=== PATIENT | female | born 1960 | race Hispanic/Latino ===

== ENCOUNTER 2018-01-30 17:14 | Inpatient (IN) | payer MEDICAID ==
--- NOTE | 2018-01-30 18:19 | RAD REPORT ---
EXAM DESCRIPTION: CT - Head Brain Wo Cont - 01/30/2018 6:08 pm CLINICAL HISTORY: CVA COMPARISON: 09/07/2016, 05/19/2014 TECHNIQUE: All CT scans are performed using dose optimization technique as appropriate and may inclu de automated exposure control or mA/KV adjustment according to patient size. FINDINGS: No intracranial hemorrhage, hydrocephalus or extra-axial fluid collection.Moderate general ized brain atrophy is present with moderate periventricular and deep white matter chronic microvascul ar ischemic changes.No areas of brain edema or evidence of midline shift. The paranasal sinuses and mastoids are clear. The calvarium is intact. Vertebral arteries are calcifi ed. IMPRESSION: No acute intracranial abnormality. If there is continued clinical concern for CVA, MR i maging of the brain would be recommended.
--- NOTE | 2018-01-30 18:29 | RAD REPORT ---
EXAM DESCRIPTION: RAD - Chest Single View - 01/30/2018 6:22 pm CLINICAL HISTORY: Shortness of breath. COMPARISON: 09/05/2016 FINDINGS: Portable technique limits examination quality. Ill-defined pulmonary opacity in the right upper lobe is noted, suspicious for possible pneumonia. Th e lungs are otherwise clear. The heart is normal in size. No displaced fractures.
--- NOTE | 2018-01-30 19:06 | RAD REPORT ---
EXAM DESCRIPTION: MRI - Brain Wo Cont - 01/30/2018 6:47 pm CLINICAL HISTORY: TIA, CVA COMPARISON: None. TECHNIQUE: Multi-sequence, multiplanar MR imaging of the brain was performed without contrast. FINDINGS: No intracranial hemorrhage, hydrocephalus or extra-axial fluid collections.Advanced conflu ent T2/FLAIR hyperintensity in the periventricular and deep white matter is present compatible with c hronic microvascular ischemic changes. No edema or shift of midline structures. No findings to suspec t brain mass. DWI is negative for acute CVA. Midline structures are normally formed. Mastoid air cells and paranasal sinuses are clear. IMPRESSION: Negative for acute CVA or other acute intracranial process.
--- NOTE | 2018-01-30 19:25 | ER ---
Nurse's Notes [facility] Name: Juana Navarro Age: 57 yrs Sex: Female : 1960 Arrival Date: 01/30/2018 Time: 17:26 Bed 28 Private MD: Diagnosis: Pneumonia due to other specified bacteria;Weakness;Type 2 diabetes mellitus Presentation: 01/30 17:27 Presenting complaint: EMS states: they were called by family due to patient leaning kr2 more to her right side since 8am this morning. She has a history of 2 strokes. The facial droop and other weakness is normal for her and only change is right sided leaning. Transition of care: patient was not received from another setting of care. Onset of symptoms was January 30, 2018 at 08:00. Risk Assessment: Do you want to hurt yourself or someone else? Patient reports no desire to harm self or others. Initial Sepsis Screen: Does the patient meet any 2 criteria? No. Patient's initial sepsis screen is negative. Does the patient have a suspected source of infection? No. Patient's initial sepsis screen is negative. Care prior to arrival: None. 17:27 Method Of Arrival: EMS: [facility] kr2 17:27 Acuity: DAVID 3 kr2 Triage Assessment: 17:30 General: Appears in no apparent distress. comfortable, well groomed, well developed, kr2 well nourished, Behavior is calm, cooperative, appropriate for age. Pain: Denies pain. Historical: - PMHx: 17:34 CVA; Diabetes - NIDDM; Hypertension; kr2 - PSHx: 17:34 ovaries removed; kr2 - Immunization history:: Adult Immunizations unknown. - Social history:: Smoking status: unknown. - Ebola Screening: : Patient negative for fever greater than or equal to 101.5 degrees Fahrenheit, and additional compatible Ebola Virus Disease symptoms Patient denies exposure to infectious person Patient denies travel to an Ebola-affected area in the 21 days before illness onset No symptoms or risks identified at this time. - Family history:: not pertinent. Screenin:30 Abuse screen: Denies threats or abuse. Denies injuries from another. Nutritional kr2 screening: No deficits noted. Tuberculosis screening: No symptoms or risk factors identified. Fall Risk Gait- Normal/Bed Rest/Wheelchair (0 pts). Assessment: 17:30 General: Appears in no apparent distress. comfortable, well groomed, well developed, kr2 well nourished, Behavior is calm, cooperative. Pain: Denies pain. Neuro: Level of Consciousness is awake, alert, obeys commands, Oriented to person, Patient cannot speak clearly due to effects of previous stroke . Neuro: Armature Repairer are weak on left Facial droop, weakness and aphasia reported by family to be unchanged and from previous stroke. Moves all extremities. Speech with expressive aphasia noted, Facial droop on left, Pupils are PERRLA. Cardiovascular: Capillary refill < 3 seconds in bilateral fingers Patient's skin is warm and dry. Respiratory: Airway is patent Respiratory effort is even, unlabored, Respiratory pattern is regular, symmetrical, Breath sounds are clear bilaterally. Respiratory: cough noted. GI: Abdomen is flat, non-distended. GI: Parent/caregiver reports the patient having diarrhea. EENT: Nares are clear bilaterally Oral mucosa is dry. Poor dentition noted. Derm: Skin is intact, is healthy with good turgor, Skin is pink, warm \T\ dry. Musculoskeletal: Circulation, motion, and sensation intact. 18:05 Reassessment: Patient taken to CT and MRI via stretcher by assistive technology specialist. kr2 19:30 Reassessment: Patient appears in no apparent distress at this time. Patient and/or kr2 family updated on plan of care and expected duration. Pain level reassessed. Patient back from radiology at this time. Unable to draw labs from existing IV, lab called and environmental engineering manager at bedside to draw ordered labs. 20:43 Reassessment: Patient appears in no apparent distress at this time. Patient and/or kr2 family updated on plan of care and expected duration. Pain level reassessed. Family at bedside. State they do not have a medication list with them at this time but they can get one and bring it to the hospital. Vital Signs: 17:32 BP 149 / 89; Pulse 97; Resp 21; Temp 100.2; Pulse Ox 97% on 2 lpm NC; kr2 19:30 BP 144 / 80; Pulse 90; Resp 20; Pulse Ox 100% on 2 lpm NC; kr2 20:39 BP 150 / 84; Pulse 85; Resp 18; Pulse Ox 97% on 2 lpm NC; kr2 20:46 Temp 100; kr2 21:22 BP 153 / 68; Pulse 76; Resp 22; Temp 98.8; Pulse Ox 98% on 2 lpm NC; kr2 ED Course: 17:26 Patient arrived in ED. kr2 17:30 Triage completed. kr2 17:31 Arm band placed on. kr2 17:31 Patient has correct armband on for positive identification. Bed in low position. Call kr2 light in reach. Side rails up X2. desk monitor on. Pulse ox on. NIBP on. Door closed. Warm blanket given. Head of bed elevated. 17:44 Mykel Romero MD is Attending Physician. austyn 17:[address] via stretcher. vm2 18:00 Inserted saline lock: 22 gauge in left forearm, using aseptic technique. kr2 18:02 Sophie Harvey RN is Primary Nurse. kr2 18:08 CT Head Brain wo Cont In Process Unspecified. EDMS 18:15 CT completed. Patient tolerated procedure well. Patient moved back from CT. eh 18:20 X-ray completed. Portable x-ray completed in exam room. Patient tolerated procedure mh1 well. 18:23 XRAY Chest (1 view) In Process Unspecified. EDMS 18:23 Patient moved to MRI via stretcher. ka 18:33 MRI - Brain Wo Cont In Process Unspecified. EDMS 18:58 Patient moved back from MRI. ka 19:22 Sanya Torres MD is Hospitalizing Provider. austyn 19:40 Shah cath inserted, using sterile technique, 16 Fr., by ok, balloon inflated, to kr2 gravity drainage, urine specimen collected. returned sediment noted. Patient tolerated well. 19:48 Inserted saline lock: 22 gauge in right antecubital area, using aseptic technique. kr2 Blood collected. 21:32 No provider procedures requiring assistance completed. Patient admitted, IV remains in kr2 place. 21:35 Verbal reassurance given. Repositioned patient. Cleaned of incontinence. kr2 Administered Medications: 19:57 Drug: Rocephin - (cefTRIAXone) 1 grams Route: IVPB; Infused Over: 30 mins; Site: left kr2 forearm; 21:21 Follow up: Response: No adverse reaction; IV Status: Completed infusion kr2 19:58 Drug: NS 0.9% 1000 ml Route: IV; Rate: 1 bolus; Site: left antecubital; kr2 21:22 Follow up: Response: No adverse reaction; IV Status: Completed infusion kr2 19:58 CANCELLED (route changed): Tylenol 650 mg PO once kr2 19:58 Drug: Rocephin - (cefTRIAXone) 1 grams Route: IVPB; Infused Over: 30 mins; Site: left kr2 forearm; 21:21 Follow up: Response: No adverse reaction; IV Status: Completed infusion kr2 19:59 Drug: Tylenol Suppository 650 mg Route: WA; kr2 21:21 Follow up: Response: No adverse reaction kr2 21:25 Drug: Zithromax 500 mg Route: IVPB; Infused Over: 1 hrs; Site: left forearm; kr2 21:34 Follow up: Response: No adverse reaction; IV Status: Infusion continued upon admission kr2 Outcome: 19:24 Decision to Hospitalize by Provider. austyn 21:34 Admitted to Med/surg accompanied by sachi, via stretcher, room 412, with chart, Report kr2 called to Renae 21:34 Condition: stable 21:34 Instructed on the need for admit. 21:37 Patient left the ED. kr2 Signatures: Dispatcher [employer] EDMS Mykel Romero MD MD cha Hagler, Ervin eh Harvey, Martha 1 Darya العراقي Victoria 2 Sophie Harvey RN RN kr2 Corrections: (The following items were deleted from the chart) 18:05 17:31 Ebola Screening: Patient negative for fever greater than or equal to 101.5 kr2 degrees Fahrenheit, and additional compatible Ebola Virus Disease symptoms Patient denies exposure to infectious person Patient denies travel to an Ebola-affected area in the 21 days before illness onset No symptoms or risks identified at this time kr2 18:06 17:27 Initial Sepsis Screen: Does the patient meet any 2 criteria? No. Patient's kr2 initial sepsis screen is negative. Does the patient have a suspected source of infection? No. Patient's initial sepsis screen is negative. kr2
[2018-01-30] MEDS ORDERED: CEFTRIAXONE/SWI 1gm 2 GM/20 ML SYR ONE (19:26)
[2018-01-30] MEDS ORDERED: ACETAMINOPHEN 650MG/RECT SUPP PR ONE (19:26)
--- NOTE | 2018-01-30 19:26 | EDPHYS ---
Physician Documentation [facility] Name: Juana Navarro Age: 57 yrs Sex: Female : 1960 Arrival Date: 01/30/2018 Time: 17:26 Bed 28 Private MD: ED Physician Mykel Romero HPI: 01/30 18:22 This 57 yrs old Female presents to ER via EMS with complaints of increased austyn weakness, leaning to right side. 18:22 weakness all day, leaning to the right. Onset: The symptoms/episode began/occurred 1 austyn day(s) ago. Severity of symptoms: At their worst the symptoms were mild in the emergency department the symptoms are unchanged. The patient has experienced similar episodes in the past, several times. Historical: - PMHx: 17:34 CVA; Diabetes - NIDDM; Hypertension; kr2 - PSHx: 17:34 ovaries removed; kr2 - Immunization history:: Adult Immunizations unknown. - Social history:: Smoking status: unknown. - Ebola Screening: : Patient negative for fever greater than or equal to 101.5 degrees Fahrenheit, and additional compatible Ebola Virus Disease symptoms Patient denies exposure to infectious person Patient denies travel to an Ebola-affected area in the 21 days before illness onset No symptoms or risks identified at this time. - Family history:: not pertinent. ROS: 18:22 Constitutional: Negative for fever, chills, and weight loss, Eyes: Negative for injury, austyn pain, redness, and discharge, ENT: Negative for injury, pain, and discharge, Neck: Negative for injury, pain, and swelling, Cardiovascular: Negative for chest pain, palpitations, and edema, Respiratory: Negative for shortness of breath, cough, wheezing, and pleuritic chest pain, Abdomen/GI: Negative for abdominal pain, nausea, vomiting, diarrhea, and constipation, Back: Negative for injury and pain, : Negative for injury, bleeding, discharge, and swelling, MS/Extremity: Negative for injury and deformity, Skin: Negative for injury, rash, and discoloration, Psych: Negative for depression, anxiety, suicide ideation, homicidal ideation, and hallucinations, Allergy/Immunology: Negative for hives, rash, and allergies, Endocrine: Negative for neck swelling, polydipsia, polyuria, polyphagia, and marked weight changes, Hematologic/Lymphatic: Negative for swollen nodes, abnormal bleeding, and unusual bruising. 18:22 Neuro: Positive for weakness. Exam: 18:22 Head/Face: Normocephalic, atraumatic. Eyes: Pupils equal round and reactive to light, austyn extra-ocular motions intact. Lids and lashes normal. Conjunctiva and sclera are non-icteric and not injected. Cornea within normal limits. Periorbital areas with no swelling, redness, or edema. ENT: Nares patent. No nasal discharge, no septal abnormalities noted. Tympanic membranes are normal and external auditory canals are clear. Oropharynx with no redness, swelling, or masses, exudates, or evidence of obstruction, uvula midline. Mucous membranes moist. Neck: Trachea midline, no thyromegaly or masses palpated, and no cervical lymphadenopathy. Supple, full range of motion without nuchal rigidity, or vertebral point tenderness. No Meningismus. Chest/axilla: Normal chest wall appearance and motion. Nontender with no deformity. No lesions are appreciated. Cardiovascular: Regular rate and rhythm with a normal S1 and S2. No gallops, murmurs, or rubs. Normal PMI, no JVD. No pulse deficits. Respiratory: Lungs have equal breath sounds bilaterally, clear to auscultation and percussion. No rales, rhonchi or wheezes noted. No increased work of breathing, no retractions or nasal flaring. Abdomen/GI: Soft, non-tender, with normal bowel sounds. No distension or tympany. No guarding or rebound. No evidence of tenderness throughout. Back: No spinal tenderness. No costovertebral tenderness. Full range of motion. Female : Normal external genitalia. Skin: Warm, dry with normal turgor. Normal color with no rashes, no lesions, and no evidence of cellulitis. MS/ Extremity: Pulses equal, no cyanosis. Neurovascular intact. Full, normal range of motion. Psych: Awake, alert, with orientation to person, place and time. Behavior, mood, and affect are within normal limits. 18:22 Constitutional: The patient appears febrile. 18:22 Neuro: Orientation: is normal, appropriate for stated age, no acute changes, Mentation: is normal, appropriate for stated age, no acute changes, Memory: no acute changes, Cranial nerves: no acute changes, Cerebellar function: no acute changes, Motor: moves all fours, Gait: not tested. seizure activity, is not displayed by the patient. Vital Signs: 17:32 BP 149 / 89; Pulse 97; Resp 21; Temp 100.2; Pulse Ox 97% on 2 lpm NC; kr2 19:30 BP 144 / 80; Pulse 90; Resp 20; Pulse Ox 100% on 2 lpm NC; kr2 20:39 BP 150 / 84; Pulse 85; Resp 18; Pulse Ox 97% on 2 lpm NC; kr2 20:46 Temp 100; kr2 21:22 BP 153 / 68; Pulse 76; Resp 22; Temp 98.8; Pulse Ox 98% on 2 lpm NC; kr2 MDM: 17:44 Patient medically screened. [facility] 18:25 Data reviewed: vital signs, nurses notes, lab test result(s), EKG, radiologic studies, [facility] CT scan, MRI. 01/30 17:52 Order name: Basic Metabolic Panel; Complete Time: 21:31 [facility] 01/30 21:31 Interpretation: Normal except: NA 133; K 3.1; CL 99; GLUC 210; CA 8.4; BUN 27; CRE cp 1.29; GFR 43. 01/30 17:52 Order name: BNP; Complete Time: 21:31 [facility] 01/30 17:52 Order name: CBC with Diff; Complete Time: 21:31 [facility] 01/30 21:32 Interpretation: Normal except: WBC 14.3; SAUMYA% 79.8; LYM% 10.7; NEUT A 11.4. cp 01/30 17:52 Order name: Ckmb; Complete Time: 21:31 [facility] 01/30 17:52 Order name: CPK; Complete Time: 21:31 [facility] 01/30 17:52 Order name: LFT's; Complete Time: 21:31 [facility] 01/30 21:33 Interpretation: Normal except: BILID 0.3; ALB 3.0; GLOB 4.5; A/G 0.7. cp 01/30 17:52 Order name: Magnesium; Complete Time: 21:31 [facility] 01/30 21:34 Interpretation: Abnormal: MG 1.7. cp 01/30 17:52 Order name: PT-INR; Complete Time: 21:31 [facility] 01/30 17:52 Order name: Ptt, Activated; Complete Time: 21:31 [facility] 01/30 17:52 Order name: Troponin (emerg Dept Use Only); Complete Time: 21:31 [facility] 01/30 17:52 Order name: Lipase; Complete Time: 21:31 [facility] 01/30 17:52 Order name: CRP; Complete Time: 21:31 [facility] 01/30 17:52 Order name: Blood Culture Adult (2) [facility] 01/30 17:52 Order name: Urine Culture [facility] 01/30 17:52 Order name: XRAY Chest (1 view); Complete Time: 19:05 [facility] 01/30 17:52 Order name: EKG; Complete Time: 17:53 [facility] 01/30 17:52 Order name: Cardiac monitoring; Complete Time: 18:02 [facility] 01/30 17:52 Order name: EKG - Nurse/Tech; Complete Time: 21:22 [facility] 01/30 17:52 Order name: Lactate; Complete Time: 21:31 [facility] 01/30 17:52 Order name: Procalcitonin; Complete Time: 21:31 [facility] 01/30 17:52 Order name: CT Head Brain wo Cont; Complete Time: 19:05 [facility] 01/30 18:16 Order name: MRI - Brain Wo Cont; Complete Time: 19:21 01/30 19:58 Order name: Urine Dipstick--Ancillary (enter results); Complete Time: 21:31 rg2 01/30 20:02 Order name: Thorax W/ Con; Complete Time: 21:31 EDMS 01/30 17:52 Order name: IV Saline Lock; Complete Time: 18:03 [facility] 01/30 17:52 Order name: Labs collected and sent; Complete Time: 18:03 [facility] 01/30 17:52 Order name: O2 Per Protocol; Complete Time: 18:03 [facility] 01/30 17:52 Order name: O2 Sat Monitoring; Complete Time: 18:03 [facility] 01/30 17:52 Order name: Urine Dipstick-Ancillary (obtain specimen); Complete Time: 21:22 [facility] Administered Medications: 19:57 Drug: Rocephin - (cefTRIAXone) 1 grams Route: IVPB; Infused Over: 30 mins; Site: left kr2 forearm; 21:21 Follow up: Response: No adverse reaction; IV Status: Completed infusion kr2 19:58 Drug: NS 0.9% 1000 ml Route: IV; Rate: 1 bolus; Site: left antecubital; kr2 21:22 Follow up: Response: No adverse reaction; IV Status: Completed infusion kr2 19:58 CANCELLED (route changed): Tylenol 650 mg PO once kr2 19:58 Drug: Rocephin - (cefTRIAXone) 1 grams Route: IVPB; Infused Over: 30 mins; Site: left kr2 forearm; 21:21 Follow up: Response: No adverse reaction; IV Status: Completed infusion kr2 19:59 Drug: Tylenol Suppository 650 mg Route: SD; kr2 21:21 Follow up: Response: No adverse reaction kr2 21:25 Drug: Zithromax 500 mg Route: IVPB; Infused Over: 1 hrs; Site: left forearm; kr2 21:34 Follow up: Response: No adverse reaction; IV Status: Infusion continued upon admission kr2 Disposition: 01/30/18 19:24 Hospitalization ordered by Sanya Torres for Inpatient Admission. Preliminary diagnosis are Pneumonia due to other specified bacteria, Weakness, Type 2 diabetes mellitus. - Bed requested for Telemetry/MedSurg (Inpatient). - Status is Inpatient Admission. kr2 - Condition is Fair. - Problem is new. - Symptoms have improved. UTI on Admission? Yes Signatures: Dispatcher [employer] EDMS Misa Post RN RN mw Anderson, Corey, MD MD cha Page, Corey, PA PA cp Reaves, Karey, RN RN kr2 Corrections: (The following items were deleted from the chart) 18:05 17:31 Ebola Screening: Patient negative for fever greater than or equal to 101.5 kr2 degrees Fahrenheit, and additional compatible Ebola Virus Disease symptoms Patient denies exposure to infectious person Patient denies travel to an Ebola-affected area in the 21 days before illness onset No symptoms or risks identified at this time kr 19:27 19:24 Hospitalization Ordered by Sanya Torres MD for Inpatient Admission. Preliminary diagnosis is Pneumonia due to other specified bacteria; Weakness; Type 2 diabetes mellitus. Bed requested for Telemetry/MedSurg (Inpatient). Status is Inpatient Admission. Condition is Fair. Problem is new. Symptoms have improved. UTI on Admission? Yes. austyn 19:31 19:27 01/30/2018 19:24 Hospitalization Ordered by Sanya Torres MD for Inpatient Admission. Preliminary diagnosis is Pneumonia due to other specified bacteria; Weakness; Type 2 diabetes mellitus. Bed requested for Telemetry/MedSurg (Inpatient). Status is Inpatient Admission. Condition is Fair. Problem is new. Symptoms have improved. UTI on Admission? Yes. mw 19:58 17:52 Tylenol 650 mg PO once ordered. austyn kr2 21:32 21:32 Normal except: WBC 14.3. cp cp 21:37 19:31 01/30/2018 19:24 Hospitalization Ordered by Sanya Torres MD for Inpatient kr2 Admission. Preliminary diagnosis is Pneumonia due to other specified bacteria; Weakness; Type 2 diabetes mellitus. Bed requested for Telemetry/MedSurg (Inpatient). Status is Inpatient Admission. Condition is Fair. Problem is new. Symptoms have improved. UTI on Admission? Yes. mw
[2018-01-30] MEDS ORDERED: NA CHLORIDE 0.9% 1,000 ML ONE (19:27)
[2018-01-30 19:43] LABS: Absolute Lymphocytes (CBC) 1.5 K/uL (0.7-4.9); Absolute Monocytes 1.2 K/uL (0.1-1.3); Absolute Neutrophil 11.4 K/uL (1.8-8.0); Basophils % 0.6 % (0-1.3); Eosinophils % 0.4 % (0-4.4); Hematocrit 39.7 % (36.0-45.0); Lymphocytes % 10.7 % (15.3-44.8); MCV 83.8 fL (80-100); MPV 8.3 fL (7.6-11.3); Monocytes % 8.5 % (3.3-12.3); RBC Red Blood Cell Count 4.73 M/uL (3.86-4.86)
[2018-01-30 19:51] LABS: Protime INR 1.17
[2018-01-30] MEDS ORDERED: ALBUTEROL 2.5 MG/3 ML NEB SOL NEB SCH (20:00)
[2018-01-30] MEDS: IPRATROPIUM BROM 0.5MG/2.5ML NEB SCH (20:00)
[2018-01-30 20:06] LABS: Potassium 3.1 mEq/L (3.6-5.0)
[2018-01-30 20:15] LABS: Bilirubin Direct 0.3 mg/dL (0-0.2); Bilirubin Total 0.6 mg/dL (0.3-1.2); CKMB Creatine Kinase MB 1.2 ng/ml (0.3-4.0); Magnesium 1.7 mg/dL (1.8-2.5); Protein, Total 7.5 g/dL (6.0-8.3)
[2018-01-30 20:24] LABS: Urine Blood 1+ (NEG); Urine Glucose NEGATIVE (NEG); Urine Protein 2+ (NEG); Urine pH 5.5 (5.0-7.0)
[2018-01-30] MEDS ORDERED: CEFTRIAXONE 1 GM/NS 50 ML 1 GM/50 ML BAG IV SCH (21:00)
--- NOTE | 2018-01-30 21:12 | RAD REPORT ---
EXAM DESCRIPTION: CT - Thorax W/ Con CLINICAL HISTORY: Chest pain COMPARISON: 09/05/2016 FINDINGS: Airspace opacity is present in the posterior right upper lobe with areas of internal cavit ation noted, likely representing pneumonia. A small right pleural effusion is noted. No pericardial f luid or left pleural effusion. No pneumothorax. Prominent adenopathy is present in the mediastinum, including the pretracheal region measuring up to 13 mm in short axis. Small right hilar lymph node is also seen, largest measuring 12 mm. No concerning bony finding. Cholelithiasis. All CT scans are performed using dose optimization technique as appropriate and may include automated exposure control or mA/KV adjustment according to patient size. IMPRESSION: Moderate-sized cavitary pneumonia suspected right upper lobe posteriorly with small righ t pleural effusion.Advise follow-up imaging until clear to document resolution.
[2018-01-30] MEDS: NA CHLORIDE 0.9% 1,000 ML IV SCH (21:55)
[2018-01-30 23:36] VITALS: BMI 22.4
[2018-01-31] MEDS ORDERED: POTASSIUM 25 MEQ EFFERV TAB PO ONE ×2 (01:48→10:21)
[2018-01-31] MEDS: IPRATROPIUM BROM 0.5MG/2.5ML NEB SCH ×3 (02:13→13:02)
[2018-01-31] MEDS ORDERED: TUBERCULIN PPD 5 TU/0.1 ML ID SCH (07:00)
[2018-01-31] MEDS ORDERED: PNEUMOCOCCAL VACCINE 0.5 ML IMVAC ONE (08:00)
[2018-01-31] MEDS ORDERED: CEFTRIAXONE/SWI 1gm 1 GM/10 ML SYR IV SCH (09:00)
[2018-01-31] MEDS ORDERED: AZITHROMYCIN IV 500 MG in NA CHLORIDE 0.9% 250 ML IVPB SCH (09:00)
[2018-01-31] MEDS: ENOXAPARIN 40 MG/0.4 ML SQ SCH (09:36)
[2018-01-31] MEDS: NA CHLORIDE 0.9% 1,000 ML IV SCH (09:36)
--- NOTE | 2018-01-31 10:19 | EKG ---
Test Date: 2018-01-30 Test Time: 20:45:12 Tongue And Quarter Stitcher: DAQUAN MEASUREMENT RESULTS: Intervals: Rate: 85 NM: 152 QRSD: 96 QT: 384 QTc: 456 Lucile: P: 73 NM: 152 QRS: 1 T: 79 INTERPRETIVE STATEMENTS: Normal sinus rhythm Normal ECG Compared to ECG 09/05/2016 12:46:41 T-wave abnormality no longer present Prolonged QT interval no longer present Electronically Signed On 01-31-18 10:18:41 CDT by Waqar Stark
--- NOTE | 2018-01-31 10:57 | P.CNS ---
Date of Consult: 01/31/18 Reason for Consult: Pneumoniae History of Present Illness: Patient is 57 years of age nonverbal history of prior strokes called her family members apparently she was leaning more 2 words a right unable to obtain any information. Patient was found to have a pneumonia she does move her extremities and he is obeying commands but not able to communicate. CT scan showed unimpressive pneumonia on the right side P Allergies No Known Allergies Allergy (Verified 09/05/16 23:23) Home Medications: Lisinopril 20 mg PO DAILY 09/06/16 Metformin HCl 1,000 mg PO BID 09/06/16 Atorvastatin Calcium [Lipitor] 20 mg PO BEDTIME #30 tab 09/09/16 Metoprolol Tartrate [Lopressor*] 50 mg PO BID #60 tab 09/09/16 - Past Medical/Surgical History Diabetic: Yes -: CVA -: NIDDM -: HTN -: ovaries removed - Family History Mother Medical History: Stroke Father Medical History: Heart disease - Social History Smoking Status: Unknown if ever smoked Alcohol use: No CD- Drugs: No Caffeine use: No Place of Residence: Home Review of Systems is unable to be obtained Physical Examination Temp Pulse Resp BP Pulse Ox 98.1 F 82 18 149/82 H 98 01/31/18 07:43 01/31/18 07:43 01/31/18 07:43 01/31/18 07:43 01/31/18 07:43 General: Alert, Cooperative Respiratory: Crackles/rales (Crackles on the right side) Cardiovascular: No edema, Regular rate/rhythm Gastrointestinal: Normal bowel sounds, Soft and benign Musculoskeletal: No clubbing, No swelling Integumentary: No rashes, No breakdown Neurological: Other (Patient is able to move her extremities left side is weaker than the right) Laboratory Data (last 24 hrs) 01/30/18 19:32: PT 13.8 H, INR 1.17, APTT 26.9 01/30/18 19:32: WBC 14.3 H, Hgb 12.8, Hct 39.7, Plt Count 373 01/30/18 19:32: B-Natriuretic Peptide 32 01/30/18 19:32: Sodium 133 L, Potassium 3.1 L, BUN 27 H, Creatinine 1.29 H, Glucose 210 H, Magnesium 1.7 L, Total Bilirubin 0.6, AST 34, ALT 27, Alkaline Phosphatase 119, Lipase 21 L - Problems (1) Pneumonia Current Visit: Yes Status: Acute Plan: Patient is 57 years of age admitted with a right upper lobe pneumonia nonverbal history of strokes MRI is negative white count elevated have some electrolyte abnormality mild renal insufficiency patient is at risk for resistant 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
[2018-01-31] MEDS: Levofloxacin500mg IV 500 MG/100 ML BAG IV SCH (11:38)
--- NOTE | 2018-01-31 12:19 | P.HP ---
Certification for Inpatient Patient admitted to: Inpatient With expected LOS: >2 Midnights Patient will require the following post-hospital care: None Practitioner: I am a practitioner with admitting privileges, knowledge of patient current condition, hospital course, and medical plan of care. Services: Services provided to patient in accordance with Admission requirements found in Title 42 Section 412.3 of the Code of Federal Regulations Patient History Date of Service: 01/30/18 Reason for admission: Patient with right upper lobe cavitary pneumonia History of Present Illness: Patient is a 57-year-old female who has a history CVA. She has residual expressive aphasia. 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 She came into the hospital with generalized weakness and she was confused. Patient's significant other brought her into the emergency room. Patient's initial chest x-ray showed a right upper lobe pneumonia. Patient had a CT scan to better define the pneumonia and this revealed a cavitary lesion. Patient's significant other denies any hemoptysis or weight loss. Patient does not have any night sweats. At this time will move her into isolation and await for her cultures and testing for acid fast bacilli. We will also consult Pulmonary. Allergies No Known Allergies Allergy (Verified 09/05/16 23:23) Home Medications: Lisinopril 20 mg PO DAILY 09/06/16 Metformin HCl 1,000 mg PO BID 09/06/16 Atorvastatin Calcium [Lipitor] 20 mg PO BEDTIME #30 tab 09/09/16 Metoprolol Tartrate [Lopressor*] 50 mg PO BID #60 tab 09/09/16 - Past Medical/Surgical History Has patient received pneumonia vaccine in the past: No Diabetic: Yes -: CVA -: NIDDM -: HTN -: Oopherectomy - Family History Mother Medical History: Stroke Father Medical History: Heart disease - Social History Smoking Status: Never smoker Alcohol use: No CD- Drugs: No Caffeine use: No Place of Residence: Home Review of Systems 10-point ROS is otherwise unremarkable Physical Examination - Vital Signs Temperature: 98.5 F Blood Pressure: 149/73 Pulse: 78 Respirations: 18 Pulse Ox (%): 98 - Physical Exam General: Alert, In no apparent distress, Other ( patient with expressive aphasia ) HEENT: Atraumatic, PERRLA, Mucous membr. moist/pink, EOMI, Sclerae nonicteric Neck: Supple, 2+ carotid pulse no bruit, No LAD, Without JVD or thyroid abnormality Respiratory: Diminished, Rhonchi/gurgles Cardiovascular: Regular rate/rhythm, Normal S1 S2, No murmurs Gastrointestinal: Normal bowel sounds, Soft and benign, Non-distended, No tenderness Musculoskeletal: No clubbing, No swelling, No tenderness Integumentary: No rashes Neurological: Normal tone, Sensation intact, Normal affect, Abnormal gait, Abnormal speech, Abnormal strength, Abnormal cranial nerve function Lymphatics: No axilla or inguinal lymphadenopathy - Studies Laboratory Data (last 24 hrs) 01/30/18 19:32: PT 13.8 H, INR 1.17, APTT 26.9 01/30/18 19:32: WBC 14.3 H, Hgb 12.8, Hct 39.7, Plt Count 373 01/30/18 19:32: B-Natriuretic Peptide 32 01/30/18 19:32: Sodium 133 L, Potassium 3.1 L, BUN 27 H, Creatinine 1.29 H, Glucose 210 H, Magnesium 1.7 L, Total Bilirubin 0.6, AST 34, ALT 27, Alkaline Phosphatase 119, Lipase 21 L Assessment & Plan - Problems (Diagnosis) (1) Expressive aphasia Current Visit: Yes Status: Acute (2) Cavitary pneumonia Current Visit: Yes Status: Acute (3) Right upper lobe pneumonia Current Visit: Yes Status: Acute (4) Cerebrovascular accident (CVA) Current Visit: No Status: Acute Qualifiers: Laterality of affected vessel: unspecified (5) Hypertension Current Visit: No Status: Acute Qualifiers: Hypertension type: essential hypertension Qualified Code(s): I10 - Essential (primary) hypertension (6) DM (diabetes mellitus), type 2 Current Visit: No Status: Chronic Qualifiers: Diabetes mellitus custodial insulin use: without custodial use Diabetes mellitus complication status: with circulatory complication - Plan Plan: 1. Continue with IV antibiotics 2. Awaiting sputum and blood culture; procalcitonin level 3. Repeat chest x-ray in AM 4. CT scan of the chest findings: Moderate-sized cavitary pneumonia suspected right upper lobe posteriorly with small right pleural effusion 5. Respiratory isolation;PPD and collect acid fast bacilli. 6. Continue with nebs as needed 7. O2 per protocol 8. Continue with gentle hydration 9. Repeat labs including CBC and renal function in a.m. 10. Outpt follow-up with Pulmonary 11. GI and DVT prophylaxis Discharge Plan: Home Plan to discharge in: Greater than 2 days - Advance Directives Does patient have a Living Will: No Does patient have a Durable POA for Healthcare: No - Code Status/Comfort Care Code Status Assessed: Yes Code Status: Full Code Critical Care: No Time Spent Managing PTS Care (In Minutes): 50
--- NOTE | 2018-01-31 14:02 | P.PN ---
Subjective Date of Service: 01/31/18 Primary Care Provider: Unknown Chief Complaint: Patient with right upper lobe cavitary pneumonia Subjective: Improving Physical Examination - Vital Signs Temperature: 98.5 F Blood Pressure: 149/73 Pulse: 78 Respirations: 18 Pulse Ox (%): 98 - Physical Exam General: Alert, Other (Patient appears improved. Patient with expressive aphasia.) HEENT: Atraumatic Neck: Supple Respiratory: Crackles/rales (To the right side) Cardiovascular: Normal pulses, Regular rate/rhythm Gastrointestinal: Normal bowel sounds, Soft and benign, Non-distended, No masses , No rebound, No guarding Musculoskeletal: No tenderness, No warmth Neurological: Other (Expressive aphasia noted) - Studies Laboratory Data (last 24 hrs) 01/30/18 19:32: PT 13.8 H, INR 1.17, APTT 26.9 01/30/18 19:32: WBC 14.3 H, Hgb 12.8, Hct 39.7, Plt Count 373 01/30/18 19:32: B-Natriuretic Peptide 32 01/30/18 19:32: Sodium 133 L, Potassium 3.1 L, BUN 27 H, Creatinine 1.29 H, Glucose 210 H, Magnesium 1.7 L, Total Bilirubin 0.6, AST 34, ALT 27, Alkaline Phosphatase 119, Lipase 21 L Medications List Reviewed: Yes Assessment & Plan - Problems (Diagnosis) (1) History of CVA with residual deficit Current Visit: Yes Status: Chronic Plan: Patient with history of expressive aphasia. Overall stable this time. (2) Hyperlipidemia Current Visit: Yes Status: Chronic Plan: Will continue with her medication Qualifiers: Hyperlipidemia type: unspecified Qualified Code(s): E78.5 - Hyperlipidemia , unspecified (3) Hyponatremia Current Visit: Yes Status: Acute Plan: Will continue IV fluids. Will monitor and adjust appropriately. (4) Hypokalemia Current Visit: Yes Status: Acute Plan: Will monitor and adjust appropriately. Replacement protocol in place. (5) Hypomagnesemia Current Visit: Yes Status: Acute Plan: Will monitor and adjust appropriately. Replacement protocol in place. (6) Hypertension Current Visit: No Status: Chronic Plan: Will continue her medication. Qualifiers: Hypertension type: essential hypertension Qualified Code(s): I10 - Essential (primary) hypertension (7) DM (diabetes mellitus), type 2 Current Visit: No Status: Chronic Plan: Will continue with sliding scale. Will check A1c. Qualifiers: Diabetes mellitus termite exterminator helper insulin use: without termite exterminator helper use Diabetes mellitus complication status: with other specified complication Qualified Code (s): E11.69 - Type 2 diabetes mellitus with other specified complication (8) Pneumonia Current Visit: Yes Status: Acute Plan: Right upper cavitary lesion with pleural effusion noted. Will discuss with pulmonology. Adjustments in medication have been done by pulmonology. Will evaluate for possible tuberculosis. Qualifiers: Pneumonia type: due to unspecified organism Laterality: right Lung location: upper lobe of lung Qualified Code(s): J18.1 - Lobar pneumonia, unspecified organism (9) Expressive aphasia Current Visit: Yes Status: Chronic Plan: Patient with history of expressive aphasia. Overall stable. (10) Weakness Onset Date: 09/06/16 Current Visit: No Status: Acute Plan: MRI brain negative. Weakness likely related to pneumonia. Will continue as above. Discharge Plan: Home Plan to discharge in: Greater than 2 days Time Spent Managing Pts Care (In Minutes): 55
[2018-01-31] MEDS ORDERED: IPRATROPIUM BROM 0.5MG/2.5ML NEB PRN (14:03)
[2018-01-31] MEDS ORDERED: ALBUTEROL 2.5 MG/3 ML NEB SOL NEB PRN (14:03)
[2018-01-31] MEDS ORDERED: D50W 25 GM/50 ML SYRINGE IV PRN (14:05)
[2018-01-31] MEDS ORDERED: GLUCAGON 1 MG/VIAL IM PRN (14:05)
[2018-01-31] MEDS: BENZONATATE 100 MG CAP PO PRN (14:51)
[2018-01-31] MEDS: INSULIN -REGULAR HUMAN 50 UNIT/0.5 ML ML SQ SCH ×2 (15:50→20:04)
[2018-01-31] MEDS: METOPROLOL TAR 50 MG TAB PO SCH (21:04)
[2018-01-31] MEDS: ATORVASTATIN 20 MG TAB PO SCH (21:04)
[2018-02-01] MEDS: NA CHLORIDE 0.9% 1,000 ML IV SCH ×2 (00:19→11:28)
[2018-02-01 05:40] LABS: Absolute Lymphocytes (CBC) 1.6 K/uL (0.7-4.9); Absolute Monocytes 1.1 K/uL (0.1-1.3); Basophils % 0.2 % (0-1.3); Eosinophils % 1.6 % (0-4.4); Hematocrit 35.2 % (36.0-45.0); Lymphocytes % 14.5 % (15.3-44.8); MCV 83.3 fL (80-100); MPV 8.5 fL (7.6-11.3); Monocytes % 10.3 % (3.3-12.3); RBC Red Blood Cell Count 4.22 M/uL (3.86-4.86)
[2018-02-01 06:26] LABS: Thyroid Stimulating Hormone 0.7 uIU/mL (0.34-5.60)
[2018-02-01 06:31] LABS: Magnesium 1.4 mg/dL (1.8-2.5)
[2018-02-01] MEDS ORDERED: Magnesium Sulfate 2gm IVPB 2 G/50 ML BAG IV ONE (07:00)
[2018-02-01] MEDS: INSULIN -REGULAR HUMAN 50 UNIT/0.5 ML ML SQ SCH ×4 (07:30→21:00)
--- NOTE | 2018-02-01 08:16 | RAD REPORT ---
EXAM DESCRIPTION: RAD - Chest Single View - 02/01/2018 6:39 am CLINICAL HISTORY: Pneumonia COMPARISON: January 30 CT chest, January 30 portable chest TECHNIQUE: AP portable chest image was obtained 0612 hours . FINDINGS: Lung volumes are low, reduced compared to prior imaging. Dense consolidation in the right midlung field remains. No clearing from prior imaging. Opacification may be slightly worse though the under penetrated technique and shallow inspiration contribute to this appearance. Heart size and vas culature are stable. No measurable pleural effusion on plain film. No pneumothorax. IMPRESSION: Dense consolidated pneumonia in the right midlung field showing no improvement from January 30. No cavitation or other emergent component.
[2018-02-01] MEDS: BENZONATATE 100 MG CAP PO PRN ×2 (09:27→21:57)
[2018-02-01] MEDS: METOPROLOL TAR 50 MG TAB PO SCH ×2 (09:27→21:58)
[2018-02-01] MEDS: ENOXAPARIN 40 MG/0.4 ML SQ SCH (09:28)
[2018-02-01] MEDS: LISINOPRIL 20 MG TAB PO SCH (09:28)
[2018-02-01] MEDS: Levofloxacin500mg IV 500 MG/100 ML BAG IV SCH (11:27)
--- NOTE | 2018-02-01 12:57 | P.PN ---
Subjective Date of Service: 02/01/18 Primary Care Provider: Unknown Chief Complaint: Patient with right upper lobe cavitary pneumonia Subjective: Doing well Physical Examination - Vital Signs Temperature: 97.7 F Blood Pressure: 156/70 Pulse: 75 Respirations: 16 Pulse Ox (%): 94 - Physical Exam General: Alert, In no apparent distress, Cooperative HEENT: Atraumatic Neck: Supple Respiratory: Crackles/rales (To the right side) Cardiovascular: Normal pulses, Regular rate/rhythm Gastrointestinal: Normal bowel sounds, Soft and benign, Non-distended, No tenderness, No masses, No rebound, No guarding Musculoskeletal: No erythema, No tenderness, No warmth Integumentary: No erythema, No warmth, No cyanosis Neurological: Normal affect, Abnormal speech (Patient with expressive asphasia) - Studies Medications List Reviewed: Yes Assessment & Plan - Problems (Diagnosis) (1) History of CVA with residual deficit Current Visit: Yes Status: Chronic Plan: Patient with history of expressive aphasia. Overall stable this time. (2) Hyperlipidemia Current Visit: Yes Status: Chronic Plan: Will continue with her medication Qualifiers: Hyperlipidemia type: unspecified Qualified Code(s): E78.5 - Hyperlipidemia , unspecified (3) Hyponatremia Current Visit: Yes Status: Acute Plan: Improved. Will continue to adjust fluids. (4) Hypokalemia Current Visit: Yes Status: Acute Plan: Will monitor and adjust appropriately. Replacement protocol in place. (5) Hypomagnesemia Current Visit: Yes Status: Acute Plan: Will monitor and adjust appropriately. Replacement protocol in place. (6) Hypertension Current Visit: No Status: Chronic Plan: Will continue her medication. Qualifiers: Hypertension type: essential hypertension Qualified Code(s): I10 - Essential (primary) hypertension (7) DM (diabetes mellitus), type 2 Current Visit: No Status: Chronic Plan: Will continue with sliding scale. Will check A1c. Qualifiers: Diabetes mellitus terminal clerk insulin use: without terminal clerk use Diabetes mellitus complication status: with other specified complication Qualified Code (s): E11.69 - Type 2 diabetes mellitus with other specified complication (8) Pneumonia Current Visit: Yes Status: Acute Plan: Consolidated right mid lung field pneumonia. Will discuss case with pulmonology. Sputum obtained for possible tuberculosis. Patient seems to be responding to antibiotic therapy well. Qualifiers: Pneumonia type: due to unspecified organism Laterality: right Lung location: middle lobe of lung Qualified Code(s): J18.1 - Lobar pneumonia, unspecified organism (9) Expressive aphasia Current Visit: Yes Status: Chronic Plan: Patient with history of expressive aphasia. Overall stable. (10) Weakness Onset Date: 09/06/16 Current Visit: No Status: Acute Plan: MRI brain negative. Weakness likely related to pneumonia. Will continue as above. (11) UTI (urinary tract infection) Current Visit: Yes Status: Acute Plan: Possible UTI noted. Await urine culture results Qualifiers: Urinary tract infection type: site unspecified Hematuria presence: without hematuria Qualified Code(s): N39.0 - Urinary tract infection, site not specified Discharge Plan: Home Plan to discharge in: 48 Hours Time Spent Managing Pts Care (In Minutes): 55
[2018-02-01] MEDS: ATORVASTATIN 20 MG TAB PO SCH (21:57)
[2018-02-02] MEDS: NA CHLORIDE 0.9% 1,000 ML IV SCH ×2 (02:59→14:40)
[2018-02-02 04:37] LABS: Absolute Lymphocytes (CBC) 1.4 K/uL (0.7-4.9); Absolute Monocytes 0.7 K/uL (0.1-1.3); Absolute Neutrophil 6.1 K/uL (1.8-8.0); Basophils % 0.4 % (0-1.3); Eosinophils % 3.1 % (0-4.4); Lymphocytes % 16.2 % (15.3-44.8); MCH 28.2 pg (27.0-35.0); MCV 82.7 fL (80-100); Monocytes % 8.4 % (3.3-12.3); RBC Red Blood Cell Count 4.11 M/uL (3.86-4.86)
[2018-02-02 04:41] LABS: BUN Blood Urea Nitrogen 13 mg/dL (6-20); Bicarbonate 25 mEq/L (21-31); Glucose Level 105 mg/dL (65-120); Magnesium 1.6 mg/dL (1.8-2.5); Potassium 3.2 mEq/L (3.6-5.0); Sodium Level 134 mEq/L (135-145)
[2018-02-02] MEDS ORDERED: MAGNESIUM SULFATE 1 gm IVPB 1 GM/100 ML BAG IV ONE (06:24)
[2018-02-02] MEDS ORDERED: POTASSIUM CL SA 10 MEQ TAB PO ONE (06:25)
[2018-02-02] MEDS: INSULIN -REGULAR HUMAN 50 UNIT/0.5 ML ML SQ SCH ×4 (07:30→21:00)
[2018-02-02] MEDS: LISINOPRIL 20 MG TAB PO SCH ×2 (09:00→11:37)
[2018-02-02] MEDS: METOPROLOL TAR 50 MG TAB PO SCH ×2 (09:00→11:37)
[2018-02-02] MEDS: ENOXAPARIN 40 MG/0.4 ML SQ SCH (10:13)
--- NOTE | 2018-02-02 10:26 | P.PN ---
Subjective Date of Service: 02/02/18 Primary Care Provider: Unknown Chief Complaint: Patient with right upper lobe cavitary pneumonia Subjective: Other (Nurses report some problems swallowing this morning.) Physical Examination - Vital Signs Temperature: 96.9 F Blood Pressure: 143/70 Pulse: 63 Respirations: 18 Pulse Ox (%): 97 - Physical Exam General: Alert, In no apparent distress, Cooperative HEENT: Atraumatic Neck: Supple Respiratory: Clear to auscultation bilaterally, Normal air movement Cardiovascular: Normal pulses, Regular rate/rhythm Gastrointestinal: Normal bowel sounds, Soft and benign, Non-distended Musculoskeletal: No tenderness, No warmth Neurological: Other (Patient with expressive aphasia) - Studies Medications List Reviewed: Yes Assessment & Plan - Problems (Diagnosis) (1) History of CVA with residual deficit Current Visit: Yes Status: Chronic Plan: Patient with history of expressive aphasia. Nurses requests speech evaluation for possible dysphagia. Speech consulted. Patient will need modified barium swallow to further assess. Will keep patient NPO at this time. (2) Hyperlipidemia Current Visit: Yes Status: Chronic Plan: Will continue with her medication Qualifiers: Hyperlipidemia type: unspecified Qualified Code(s): E78.5 - Hyperlipidemia , unspecified (3) Hyponatremia Current Visit: Yes Status: Acute Plan: Improved. Will continue to adjust fluids. (4) Hypokalemia Current Visit: Yes Status: Acute Plan: Will monitor and adjust appropriately. Replacement protocol in place. (5) Hypomagnesemia Current Visit: Yes Status: Acute Plan: Will monitor and adjust appropriately. Replacement protocol in place. (6) Hypertension Current Visit: No Status: Chronic Plan: Will continue her medication. Qualifiers: Hypertension type: essential hypertension Qualified Code(s): I10 - Essential (primary) hypertension (7) DM (diabetes mellitus), type 2 Current Visit: No Status: Chronic Plan: Will continue with sliding scale. Will check A1c. Qualifiers: Diabetes mellitus terminal block assembler insulin use: without usp use Diabetes mellitus complication status: with other specified complication Qualified Code (s): E11.69 - Type 2 diabetes mellitus with other specified complication (8) Pneumonia Current Visit: Yes Status: Acute Plan: Consolidated right mid lung field pneumonia. Case discussed with pulmonology. Pulmonology doubts tuberculosis. Await sputum culture result. Once the patient is stable the patient can be discharged home with Levaquin or Augmentin elix. Awaiting sputum culture results and urine culture result before discharge. Discharge likely tomorrow. Qualifiers: Pneumonia type: due to unspecified organism Laterality: right Lung location: middle lobe of lung Qualified Code(s): J18.1 - Lobar pneumonia, unspecified organism (9) Expressive aphasia Current Visit: Yes Status: Chronic Plan: Patient with history of expressive aphasia. Overall stable. (10) Weakness Onset Date: 09/06/16 Current Visit: No Status: Acute Plan: MRI brain negative. Weakness likely related to pneumonia. Speech to evaluate for possible dysphagia. Will continue as above. (11) UTI (urinary tract infection) Current Visit: Yes Status: Acute Plan: Possible UTI noted. Await urine culture results Qualifiers: Urinary tract infection type: site unspecified Hematuria presence: without hematuria Qualified Code(s): N39.0 - Urinary tract infection, site not specified (12) Dysphagia Current Visit: Yes Status: Acute Plan: Nurses were concern of dysphagia this morning. Will have speech assess. Patient will likely need modified barium swallow to further assess. Aspiration precaution in place. Discharge Plan: Home Plan to discharge in: 24 Hours Time Spent Managing Pts Care (In Minutes): 55
[2018-02-02] MEDS: Levofloxacin500mg IV 500 MG/100 ML BAG IV SCH (11:18)
[2018-02-02 13:16] LABS: A1c Component 0.7 mg/dL; Hemoglobin A1c 7.5 % (4-6.0)
[2018-02-02] MEDS: HYDRALAZINE HCL 20 MG/ML VIAL IV PRN (14:39)
--- NOTE | 2018-02-02 14:46 | RAD REPORT ---
EXAM DESCRIPTION: RAD - Barium Swallow Modified - 02/02/2018 2:36 pm CLINICAL HISTORY: Cough, dysphagia FINDINGS: laryngeal pentration : cleared with thin aspiration: cough with thin , nectar, honey , puree mild to mod pharyngeal residue: VALLECULAR, PYRIFORM OTHER : significant diff coordinating oral transfer, delayed swallow reflex
[2018-02-02] MEDS ORDERED: KCL 20 MEQ/100 mL IVPB 20 MEQ/100 ML BAG IV SCH (16:00)
[2018-02-02] MEDS: D5 0.9 NS 1,000 ML IV SCH (22:59)
[2018-02-03 04:20] LABS: Absolute Lymphocytes (CBC) 1.4 K/uL (0.7-4.9); Absolute Monocytes 0.6 K/uL (0.1-1.3); Absolute Neutrophil 4.8 K/uL (1.8-8.0); Basophils % 0.6 % (0-1.3); Eosinophils % 3.2 % (0-4.4); Hematocrit 34.6 % (36.0-45.0); MCH 27.9 pg (27.0-35.0); MCV 83.1 fL (80-100); MPV 7.7 fL (7.6-11.3); RBC Red Blood Cell Count 4.17 M/uL (3.86-4.86)
[2018-02-03 04:38] LABS: BUN Blood Urea Nitrogen 9 mg/dL (6-20); Bicarbonate 27 mEq/L (21-31); Glucose Level 111 mg/dL (65-120); Magnesium 1.7 mg/dL (1.8-2.5); Potassium 3.4 mEq/L (3.6-5.0); Sodium Level 137 mEq/L (135-145)
[2018-02-03] MEDS ORDERED: MAGNESIUM SULFATE 1 gm IVPB 1 GM/100 ML BAG IV ONE (06:30)
[2018-02-03] MEDS: KCL 20 MEQ/100 mL IVPB 20 MEQ/100 ML BAG IV SCH ×2 (07:25→18:01)
[2018-02-03] MEDS: INSULIN -REGULAR HUMAN 50 UNIT/0.5 ML ML SQ SCH ×4 (07:30→21:00)
[2018-02-03] MEDS: ENOXAPARIN 40 MG/0.4 ML SQ SCH ×2 (08:17→10:30)
[2018-02-03] MEDS: Levofloxacin500mg IV 500 MG/100 ML BAG IV SCH (08:17)
[2018-02-03] MEDS: PANTOPRAZOLE 40 MG INJ IVP SCH (08:18)
--- NOTE | 2018-02-03 08:19 | P.PN ---
Subjective Date of Service: 02/03/18 Primary Care Provider: Unknown Chief Complaint: Patient with right upper lobe cavitary pneumonia Subjective: Other (Patient NPO. Patient failed speech evaluation. Patient to have PEG tube placed today.) Physical Examination - Vital Signs Temperature: 97.8 F Blood Pressure: 163/74 Pulse: 60 Respirations: 18 Pulse Ox (%): 98 - Physical Exam General: Alert, In no apparent distress HEENT: Atraumatic Neck: Supple Respiratory: Clear to auscultation bilaterally, Normal air movement Cardiovascular: Normal pulses, Regular rate/rhythm Gastrointestinal: Normal bowel sounds, Soft and benign, Non-distended, No masses , No rebound, No guarding Musculoskeletal: No tenderness, No warmth Neurological: Abnormal strength (Some deficits to the noted to the upper and lower extremities. These are chronic from previous CVA.) - Studies Microbiology Data (last 24 hrs): 01/30/18 19:50 Clean Catch Urine [place] Count - Final >100,000 CFU/ML. 01/30/18 19:50 Clean Catch Urine - Final Enterococcus Faecalis Medications List Reviewed: Yes Assessment & Plan - Problems (Diagnosis) (1) History of CVA with residual deficit Current Visit: Yes Status: Chronic Plan: Patient with history of expressive aphasia. Patient failed speech evaluation yesterday. Patient with severe dysphagia. Poor coordination of muscular chair noted. Case discussed at length with family. They understand that she is high risk for aspiration. After long discussion family has agreed to pursue PEG tube placement. Case discussed with GI yesterday. Peg tube to be placed. Culture positive for enterococcus faecalis. Cavitary lesion to the lung likely from aspiration. Will discuss with pulmonology. Anticipate discharge in the next 1-2 days if the patient is able tolerate PEG tube feeds. (2) Hyperlipidemia Current Visit: Yes Status: Chronic Plan: Will continue with her medication Qualifiers: Hyperlipidemia type: unspecified Qualified Code(s): E78.5 - Hyperlipidemia , unspecified (3) Hyponatremia Current Visit: Yes Status: Acute Plan: Improved. Will continue to adjust fluids. (4) Hypokalemia Current Visit: Yes Status: Acute Plan: Will monitor and adjust appropriately. Replacement protocol in place. (5) Hypomagnesemia Current Visit: Yes Status: Acute Plan: Will monitor and adjust appropriately. Replacement protocol in place. (6) Hypertension Current Visit: No Status: Chronic Plan: Will continue her medication. Will provide medication IV since the patient is NPO. Qualifiers: Hypertension type: essential hypertension Qualified Code(s): I10 - Essential (primary) hypertension (7) DM (diabetes mellitus), type 2 Current Visit: No Status: Chronic Plan: Will continue with sliding scale. A1c 7.5 Qualifiers: Diabetes mellitus intermediate insulin use: without intermediate use Diabetes mellitus complication status: with other specified complication Qualified Code (s): E11.69 - Type 2 diabetes mellitus with other specified complication (8) Pneumonia Current Visit: Yes Status: Acute Plan: Consolidated right mid lung field pneumonia, likely from aspiration. Will continue with above plan of care. Patient to get PEG tube. Patient will need Levaquin at discharge. Will discuss with pulmonology. Qualifiers: Pneumonia type: aspiration pneumonia Aspiration pneumonia type: unspecified Laterality: right Lung location: upper lobe of lung Qualified Code(s): J69.0 - Pneumonitis due to inhalation of food and vomit (9) Expressive aphasia Current Visit: Yes Status: Chronic Plan: Patient with history of expressive aphasia. Patient also with dysphagia. Continue as above. (10) Weakness Onset Date: 09/06/16 Current Visit: No Status: Acute Plan: MRI brain negative. Patient has weakness and lack of coordination with her mastication. Patient with dysphagia. Will pursue PEG tube (11) UTI (urinary tract infection) Current Visit: Yes Status: Acute Plan: Will continue with IV antibiotic therapy. Urine culture positive for enterococcus faecalis. Qualifiers: Urinary tract infection type: site unspecified Hematuria presence: without hematuria Qualified Code(s): N39.0 - Urinary tract infection, site not specified (12) Dysphagia Current Visit: Yes Status: Acute Plan: Case discussed with speech. Patient has poor coordination of mastication. Patient with severe dysphagia with high risk for aspiration. Patient currently NPO. Case discussed at length with family. After long discussion family agrees to pursue PEG tube placement. Case discussed with GI. Peg tube planned for today. Discharge Plan: Home Plan to discharge in: 24 Hours Time Spent Managing Pts Care (In Minutes): 55
[2018-02-03] MEDS: D5 0.9 NS 1,000 ML IV SCH (18:01)
[2018-02-03] MEDS ORDERED: LORazepam 2 MG/ML VIAL IV ONE (21:50)
[2018-02-04] MEDS: D5 0.9 NS 1,000 ML IV SCH ×2 (01:40→06:37)
[2018-02-04 05:17] LABS: BUN Blood Urea Nitrogen 8 mg/dL (6-20); Bicarbonate 26 mEq/L (21-31); Glucose Level 105 mg/dL (65-120); Potassium 3.8 mEq/L (3.6-5.0); Sodium Level 137 mEq/L (135-145)
[2018-02-04 05:25] LABS: Magnesium 1.7 mg/dL (1.8-2.5)
[2018-02-04] MEDS ORDERED: MAGNESIUM SULFATE 1 gm IVPB 1 GM/100 ML BAG IV ONE (05:28)
[2018-02-04] MEDS ORDERED: KCL 20 MEQ/100 mL IVPB 20 MEQ/100 ML BAG IV SCH (06:00)
[2018-02-04] MEDS: INSULIN -REGULAR HUMAN 50 UNIT/0.5 ML ML SQ SCH ×4 (07:30→21:00)
[2018-02-04] MEDS: Levofloxacin500mg IV 500 MG/100 ML BAG IV SCH (08:53)
[2018-02-04] MEDS: PANTOPRAZOLE 40 MG INJ IVP SCH (08:54)
[2018-02-04] MEDS: HYDRALAZINE HCL 20 MG/ML VIAL IV PRN (08:54)
[2018-02-04] MEDS: SODIUM CHLORIDE 0.9% 10ML INJ IV PRN (08:55)
--- NOTE | 2018-02-04 10:19 | P.PN ---
Subjective Date of Service: 02/04/18 Primary Care Provider: Unknown Chief Complaint: Patient with right upper lobe cavitary pneumonia Subjective: Doing well Physical Examination - Vital Signs Temperature: 97 F Blood Pressure: 178/80 Pulse: 68 Respirations: 16 Pulse Ox (%): 96 - Physical Exam General: Alert, Cooperative HEENT: Atraumatic Neck: Supple Respiratory: Clear to auscultation bilaterally, Normal air movement Cardiovascular: Normal pulses, Regular rate/rhythm Gastrointestinal: Normal bowel sounds, Soft and benign, Non-distended, No tenderness, No masses, No rebound, No guarding Musculoskeletal: No tenderness, No warmth Neurological: Abnormal speech (Patient with expressive aphasia) - Studies Microbiology Data (last 24 hrs): 01/30/18 19:50 Clean Catch Urine [place] Count - Final >100,000 CFU/ML. 01/30/18 19:50 Clean Catch Urine - Final Enterococcus Faecalis Medications List Reviewed: Yes Assessment & Plan - Problems (Diagnosis) (1) History of CVA with residual deficit Current Visit: Yes Status: Chronic Plan: Patient with history of expressive aphasia. Patient to have PEG tube placed today. Will need dietary to make recommendations thereafter. public services librarian to help with getting supplementation as an outpatient. Anticipate discharge likely by Friday if this can be set up. Urine Culture positive for enterococcus faecalis. Cavitary lesion to the lung likely from aspiration. Continue with antibiotic therapy. (2) Hyperlipidemia Current Visit: Yes Status: Chronic Plan: Will continue with her medication Qualifiers: Hyperlipidemia type: unspecified Qualified Code(s): E78.5 - Hyperlipidemia , unspecified (3) Hyponatremia Current Visit: Yes Status: Acute Plan: Improved. Will continue to adjust fluids. (4) Hypokalemia Current Visit: Yes Status: Acute Plan: Will monitor and adjust appropriately. Replacement protocol in place. (5) Hypomagnesemia Current Visit: Yes Status: Acute Plan: Will monitor and adjust appropriately. Replacement protocol in place. (6) Hypertension Onset Date: 02/03/18 Current Visit: Yes Status: Chronic Plan: Will provide IV medication as the patient is NPO. Once patient gets PEG tube can restart her regular medications for blood pressure Qualifiers: Hypertension type: essential hypertension Qualified Code(s): I10 - Essential (primary) hypertension (7) DM (diabetes mellitus), type 2 Onset Date: 02/03/18 Current Visit: Yes Status: Chronic Plan: Will continue with sliding scale. A1c 7.5 Qualifiers: Diabetes mellitus alf insulin use: without alf use Diabetes mellitus complication status: with other specified complication Qualified Code (s): E11.69 - Type 2 diabetes mellitus with other specified complication (8) Pneumonia Current Visit: Yes Status: Acute Plan: Consolidated right mid lung field pneumonia, likely from aspiration. Will continue with above plan of care. Patient to get PEG tube. Patient will need Levaquin at discharge. Will discuss with pulmonology. Qualifiers: Pneumonia type: aspiration pneumonia Aspiration pneumonia type: unspecified Laterality: right Lung location: upper lobe of lung Qualified Code(s): J69.0 - Pneumonitis due to inhalation of food and vomit (9) Expressive aphasia Onset Date: 02/03/18 Current Visit: Yes Status: Chronic Plan: Patient with history of expressive aphasia. Patient also with dysphagia. Continue as above. (10) Weakness Onset Date: 09/06/16 Current Visit: No Status: Acute Plan: MRI brain negative. Patient has weakness and lack of coordination with her mastication. Patient with dysphagia. Will pursue PEG tube (11) UTI (urinary tract infection) Current Visit: Yes Status: Acute Plan: Will continue with IV antibiotic therapy. Urine culture positive for enterococcus faecalis. Qualifiers: Urinary tract infection type: site unspecified Hematuria presence: without hematuria Qualified Code(s): N39.0 - Urinary tract infection, site not specified (12) Dysphagia Current Visit: Yes Status: Acute Plan: Case discussed with speech. Patient has poor coordination of mastication. Patient with severe dysphagia with high risk for aspiration. Patient currently NPO. Case discussed at length with family. After long discussion family agrees to pursue PEG tube placement. Peg tube planned for today. Continue with above plan of care. Discharge Plan: Home Plan to discharge in: 48 Hours Time Spent Managing Pts Care (In Minutes): 55
[2018-02-04] MEDS ORDERED: NA CHLORIDE 0.9% 1,000 ML ONE (12:04)
[2018-02-04] MEDS ORDERED: PROPOFOL 200 MG/20 ML VIAL IV ONE (14:02)
[2018-02-04] MEDS ORDERED: EPHEDRINE SULF 50 MG/ML SYR ONE (14:02)
--- NOTE | 2018-02-04 14:46 | ENDO RPT ---
[address], [address] EGD WITH PEG PROCEDURE REPORT EXAM DATE: 02/04/2018 PATIENT NAME: Juana Navarro MR #: [id number] BIRTHDATE: 1960 ATTENDING: Clay Matthews Dr STATUS: inpatient - 7 LEAD NEURODIAGNOSTIC TECHNOLOGIST: Vinita Walker and Roseline Lyle RN INDICATIONS: The patient is a 57 yr old Female here for an EGD with PEG due to dysphagia and malnutrition PROCEDURE PERFORMED: EGD with PEG placement MEDICATIONS: Per Anesthesia. TOPICAL ANESTHETIC: none CONSENT: The patient understands the risks and benefits of the procedure and understands that these risks include, but are not limited to: sedation, allergic reaction, infection, perforation and/or bleeding. Alternative means of evaluation and treatment include, among others: physical exam, x-rays, and/or surgical intervention. The patient elects to proceed with this endoscopic procedure. DESCRIPTION OF PROCEDURE: During intra-op preparation period all mechanical medical equipment was checked for proper function. Hand hygiene and appropriate measures for infection prevention was taken. After the risks, benefits and alternatives of the procedure were thoroughly explained, Informed consent was verified, confirmed and timeout was successfully executed by the treatment team. The patient was anesthetized with topical anesthesia and the [id number] ([id number]) endoscope was introduced through the mouth and advanced to the second portion of the duodenum. The instrument was slowly withdrawn as the mucosa was fully examined. The upper, middle, and distal third of the esophagus were carefully inspected and no abnormalities were noted. The z-line was well seen at the GEJ. The endoscope was pushed into the fundus which was normal including a retroflexed view. The antrum, first and second part of the duodenum were unremarkable. The stomach was then inflated with air, and by a combination of transillumination and manual palpation, the site for the gastrostomy tube placement was selected and marked on the anterior abdominal wall. The skin of the anterior abdomen was surgically prepped and draped with sterile towels. Utilizing strict sterile technique, the selected site was then anesthetized with 1% xylocaine by injection into the skin and subcutaneous tissue. A 1 cm incision was made through the skin and subcutaneous tissue, and the needle/cannula assembly was then passed through the abdominal wall and through the anterior wall of the stomach, maintaining visualization with the endoscope. A snare device previously placed through the instrument channel was then opened and placed around the cannula, the needle was removed, and the insertion wire was passed through the cannula and into the stomach lumen. The snare was then loosened from the cannula, and repositioned to snare the insertion wire. The snare was then pulled up to the endoscope distal tip, and the scope was then withdrawn bringing with it the snare and insertion wire. The insertion wire was then released from the snare, and the PEG PUSH gastrostomy tube placed over the guidewire. Using the "push technique", the tube was then pushed into place over the insertion wire at the abdominal wall end. The tube insertion site was then cleansed once again, and the external bolster was placed over the tube to secure it to the abdominal wall. A sterile dressing was then applied, and the procedure terminated. Retroflexed views revealed no abnormalities. The gastroscope was then slowly withdrawn and removed. ADVERSE EVENT: There were no complications. IMPRESSIONS: 1. Status post 20 Fr percutaneous endoscopic gastrostomy 2. Normal EGD otherwise RECOMMENDATIONS: begin PEG use in 3 hours REPEAT EXAM: Clay Matthews Dr eSigned: Clay Matthews Dr 02/04/2018 2:46 PM cc: González Jeronimo CPT CODES: ICD9 CODES: PATIENT NAME: Juana Navarro MR#: [id number]
[2018-02-04] MEDS: METOPROLOL TAR 50 MG TAB PO SCH (21:00)
[2018-02-05] MEDS: D5 0.9 NS 1,000 ML IV SCH ×3 (02:56→16:11)
[2018-02-05] MEDS: HYDRALAZINE HCL 20 MG/ML VIAL IV PRN (04:40)
[2018-02-05 06:47] LABS: Magnesium 1.6 mg/dL (1.8-2.5)
[2018-02-05] MEDS: INSULIN -REGULAR HUMAN 50 UNIT/0.5 ML ML SQ SCH ×4 (07:30→21:00)
[2018-02-05] MEDS ORDERED: MAGNESIUM SULFATE 1 gm IVPB 1 GM/100 ML BAG IV ONE (07:54)
[2018-02-05] MEDS: LISINOPRIL 20 MG TAB PO SCH (09:00)
[2018-02-05] MEDS: METOPROLOL TAR 50 MG TAB PO SCH ×2 (09:00→22:10)
[2018-02-05] MEDS: Levofloxacin500mg IV 500 MG/100 ML BAG IV SCH (10:27)
[2018-02-05] MEDS: PANTOPRAZOLE 40 MG INJ IVP SCH (10:27)
[2018-02-05] MEDS ORDERED: ACETAMINOPHEN 500 MG TAB PO PRN (11:51)
[2018-02-05] MEDS: GLUCERNA 1.5 CAL 1,000 ML BOT FT SCH ×3 (13:00→22:11)
--- NOTE | 2018-02-05 13:26 | P.PN ---
Subjective Date of Service: 02/05/18 Primary Care Provider: Unknown Chief Complaint: Patient with right upper lobe cavitary pneumonia Subjective: Improving (s/p PEG tube yesterday. Tolerating bolus TFs well. PEG site clean & dry.) Review of Systems 10-point ROS is otherwise unremarkable Respiratory: Shortness of Breath (improved) Physical Examination - Vital Signs Temperature: 97.4 F Blood Pressure: 138/78 Pulse: 62 Respirations: 16 Pulse Ox (%): 94 - Physical Exam General: Alert, Oriented x2, Cooperative HEENT: Atraumatic, Normocephalic, PERRLA, EOMI, Sclerae nonicteric Neck: Supple Respiratory: Diminished (slightly ) Cardiovascular: Normal pulses Gastrointestinal: Soft and benign, No tenderness, No rebound, No guarding - Studies Microbiology Data (last 24 hrs): 01/30/18 19:48 Blood - Blood Aerobic Blood Culture - Final No growth in 5 days. 01/30/18 19:48 Blood - Blood Anaerobic Blood Culture - Final No growth in 5 days. 01/30/18 19:32 Blood - Blood Aerobic Blood Culture - Final No growth in 5 days. 01/30/18 19:32 Blood - Blood Anaerobic Blood Culture - Final No growth in 5 days. Medications List Reviewed: Yes Assessment And Plan - Current Problems (Diagnosis) (1) Cerebrovascular accident (CVA) Onset Date: 02/03/18 Current Visit: Yes Status: Acute Qualifiers: Laterality of affected vessel: unspecified (2) Dysphagia Current Visit: Yes Status: Acute (3) Right upper lobe pneumonia Onset Date: 02/03/18 Current Visit: Yes Status: Acute (4) Expressive aphasia Onset Date: 02/03/18 Current Visit: Yes Status: Chronic (5) History of CVA with residual deficit Current Visit: Yes Status: Chronic (6) Weakness Onset Date: 09/06/16 Current Visit: No Status: Acute - Plan REC: 1) continue bolus TFs 2) monitor labs
--- NOTE | 2018-02-05 16:31 | P.PN ---
Subjective Date of Service: 02/05/18 Primary Care Provider: Unknown Chief Complaint: Patient with right upper lobe cavitary pneumonia Pt seen and examined at bedside with RN. Case DW with GI and pt overall doing well S/P PEG tube placement. Currently awaiting PEG tube nutrition setup at home. Review of Systems General: As per HPI Physical Examination - Vital Signs Temperature: 97 F Blood Pressure: 132/74 Pulse: 71 Respirations: 16 Pulse Ox (%): 93 - Physical Exam General: Alert, In no apparent distress, Oriented x3 HEENT: Atraumatic Neck: Supple, JVD not distended Respiratory: Clear to auscultation bilaterally, Normal air movement Cardiovascular: Regular rate/rhythm, Normal S1 S2 Gastrointestinal: Normal bowel sounds, No tenderness Musculoskeletal: No tenderness Integumentary: No rashes Neurological: Normal speech, Normal tone, Normal affect, Abnormal strength Lymphatics: No axilla or inguinal lymphadenopathy - Studies Microbiology Data (last 24 hrs): 01/30/18 19:48 Blood - Blood Aerobic Blood Culture - Final No growth in 5 days. 01/30/18 19:48 Blood - Blood Anaerobic Blood Culture - Final No growth in 5 days. 01/30/18 19:32 Blood - Blood Aerobic Blood Culture - Final No growth in 5 days. 01/30/18 19:32 Blood - Blood Anaerobic Blood Culture - Final No growth in 5 days. Medications List Reviewed: Yes Assessment & Plan - Problems (Diagnosis) (1) Dysphagia Current Visit: Yes Status: Acute Plan: Dysphagia with H/o CVA in the past. -S.P PEG tube placement with GI POD# 1 -Dietary Consulted. Reccs appreciated -Awaiting HH setup for nutrition -DC in 24 to 48 hrs Qualifiers: Dysphagia type: unspecified Qualified Code(s): R13.10 - Dysphagia, unspecified (2) Cavitary pneumonia Onset Date: 02/03/18 Current Visit: Yes Status: Acute Plan: Cavitary PNA on the xray -IV abx levaquin -R/O TB for now. Awaiting AFB culture at this time -Pulmonology consulted. -Most Likely Aspiration PNA -Will F.U with culture (3) UTI (urinary tract infection) Current Visit: Yes Status: Acute Plan: On IV levaquin for now Qualifiers: Urinary tract infection type: site unspecified Hematuria presence: without hematuria Qualified Code(s): N39.0 - Urinary tract infection, site not specified (4) DM (diabetes mellitus), type 2 Onset Date: 02/03/18 Current Visit: Yes Status: Chronic Qualifiers: Diabetes mellitus longterm insulin use: without buttermaker continuous churn use Diabetes mellitus complication status: with other specified complication Qualified Code (s): E11.69 - Type 2 diabetes mellitus with other specified complication (5) History of CVA with residual deficit Current Visit: Yes Status: Chronic (6) Hyperlipidemia Current Visit: Yes Status: Chronic Qualifiers: Hyperlipidemia type: unspecified Qualified Code(s): E78.5 - Hyperlipidemia , unspecified (7) Hypertension Onset Date: 02/03/18 Current Visit: Yes Status: Chronic Qualifiers: Hypertension type: essential hypertension Qualified Code(s): I10 - Essential (primary) hypertension Discharge Plan: Home Plan to discharge in: 24 Hours - Code Status/Comfort Care Code Status Assessed: Yes Critical Care: No
[2018-02-06 05:38] LABS: Magnesium 1.9 mg/dL (1.8-2.5); Potassium 3.7 mEq/L (3.6-5.0)
[2018-02-06] MEDS: INSULIN -REGULAR HUMAN 50 UNIT/0.5 ML ML SQ SCH ×4 (07:30→21:00)
[2018-02-06] MEDS ORDERED: POTASSIUM 25 MEQ EFFERV TAB PO ONE (09:00)
[2018-02-06] MEDS: LISINOPRIL 20 MG TAB PO SCH (09:36)
[2018-02-06] MEDS: METOPROLOL TAR 50 MG TAB PO SCH (09:36)
[2018-02-06] MEDS: PANTOPRAZOLE 40 MG INJ IVP SCH (09:38)
[2018-02-06] MEDS: GLUCERNA 1.5 CAL 1,000 ML BOT FT SCH ×4 (10:00→21:00)
--- NOTE | 2018-02-06 11:44 | P.PN ---
Subjective Date of Service: 02/06/18 Primary Care Provider: Unknown Chief Complaint: Patient with right upper lobe cavitary pneumonia Pt seen and examined at bedside with RN. Case DW with GI and pt overall doing well S/P PEG tube placement. Currently awaiting PEG tube nutrition setup at home. Review of Systems General: As per HPI Physical Examination - Vital Signs Temperature: 97.1 F Blood Pressure: 158/71 Pulse: 79 Respirations: 16 Pulse Ox (%): 95 - Physical Exam General: Alert, In no apparent distress HEENT: Atraumatic, PERRLA, EOMI Neck: Supple, JVD not distended Respiratory: Clear to auscultation bilaterally, Normal air movement Cardiovascular: Regular rate/rhythm, Normal S1 S2 Gastrointestinal: Normal bowel sounds, No tenderness Musculoskeletal: No tenderness Integumentary: No rashes Neurological: Normal speech, Normal tone, Normal affect Lymphatics: No axilla or inguinal lymphadenopathy - Studies Medications List Reviewed: Yes Assessment & Plan - Problems (Diagnosis) (1) Dysphagia Current Visit: Yes Status: Acute Plan: Dysphagia with H/o CVA in the past. -S.P PEG tube placement with GI POD# 2 -Dietary Consulted. Reccs appreciated -Awaiting HH setup for nutrition -DC in 24 to 48 hrs Qualifiers: Dysphagia type: unspecified Qualified Code(s): R13.10 - Dysphagia, unspecified (2) Cavitary pneumonia Onset Date: 02/03/18 Current Visit: Yes Status: Acute Plan: Cavitary PNA on the xray -IV abx levaquin -R/O TB for now. Awaiting AFB culture at this time -Pulmonology consulted. -Most Likely Aspiration PNA -Will F.U with culture (3) UTI (urinary tract infection) Current Visit: Yes Status: Acute Plan: On IV levaquin for now Qualifiers: Urinary tract infection type: site unspecified Hematuria presence: without hematuria Qualified Code(s): N39.0 - Urinary tract infection, site not specified (4) DM (diabetes mellitus), type 2 Onset Date: 02/03/18 Current Visit: Yes Status: Chronic Qualifiers: Diabetes mellitus detention insulin use: without detention use Diabetes mellitus complication status: with other specified complication Qualified Code (s): E11.69 - Type 2 diabetes mellitus with other specified complication (5) History of CVA with residual deficit Current Visit: Yes Status: Chronic (6) Hyperlipidemia Current Visit: Yes Status: Chronic Qualifiers: Hyperlipidemia type: unspecified Qualified Code(s): E78.5 - Hyperlipidemia , unspecified (7) Hypertension Onset Date: 02/03/18 Current Visit: Yes Status: Chronic Qualifiers: Hypertension type: essential hypertension Qualified Code(s): I10 - Essential (primary) hypertension Discharge Plan: Home (With for Enteral Nutrition) Plan to discharge in: 48 Hours - Code Status/Comfort Care Code Status Assessed: Yes Critical Care: No
[2018-02-06] MEDS: Levofloxacin500mg IV 500 MG/100 ML BAG IV SCH (13:29)
[2018-02-06] MEDS: D5 0.9 NS 1,000 ML IV SCH (17:18)
[2018-02-07] MEDS: D5 0.9 NS 1,000 ML IV SCH ×3 (00:35→23:00)
[2018-02-07] MEDS: METOPROLOL TAR 50 MG TAB PO SCH ×3 (00:35→22:17)
[2018-02-07 05:23] LABS: Magnesium 1.6 mg/dL (1.8-2.5); Potassium 4.1 mEq/L (3.6-5.0)
[2018-02-07] MEDS ORDERED: MAGNESIUM SULFATE 1 gm IVPB 1 GM/100 ML BAG IV ONE (07:00)
[2018-02-07] MEDS: INSULIN -REGULAR HUMAN 50 UNIT/0.5 ML ML SQ SCH ×4 (07:30→21:00)
[2018-02-07] MEDS: PANTOPRAZOLE 40 MG INJ IVP SCH (09:58)
[2018-02-07] MEDS: LISINOPRIL 20 MG TAB PO SCH (09:58)
--- NOTE | 2018-02-07 10:00 | P.PN ---
Subjective Date of Service: 02/07/18 Primary Care Provider: Unknown Chief Complaint: Patient with right upper lobe cavitary pneumonia Pt seen and examined at bedside with RN. Case DW with GI and pt overall doing well S/P PEG tube placement. Currently awaiting PEG tube nutrition setup at home. Review of Systems General: As per HPI Physical Examination - Vital Signs Temperature: 97.9 F Blood Pressure: 136/72 Pulse: 74 Respirations: 18 Pulse Ox (%): 94 - Physical Exam General: Alert, In no apparent distress HEENT: Atraumatic, PERRLA, EOMI Neck: Supple, JVD not distended Respiratory: Clear to auscultation bilaterally, Normal air movement Cardiovascular: Regular rate/rhythm, Normal S1 S2 Gastrointestinal: Normal bowel sounds, No tenderness Musculoskeletal: No tenderness Integumentary: No rashes Neurological: Normal speech, Normal tone, Normal affect Lymphatics: No axilla or inguinal lymphadenopathy - Studies Medications List Reviewed: Yes Assessment & Plan - Problems (Diagnosis) (1) Dysphagia Current Visit: Yes Status: Acute Plan: Dysphagia with H/o CVA in the past. -S.P PEG tube placement with GI POD# 3 -Dietary Consulted. Reccs appreciated -Awaiting HH setup for nutrition -DC in 24 to 48 hrs Qualifiers: Dysphagia type: unspecified Qualified Code(s): R13.10 - Dysphagia, unspecified (2) Cavitary pneumonia Onset Date: 02/03/18 Current Visit: Yes Status: Acute Plan: Cavitary PNA on the xray -IV abx levaquin -R/O TB for now. Awaiting AFB culture at this time -Pulmonology consulted. -Most Likely Aspiration PNA -Will F.U with culture (3) UTI (urinary tract infection) Current Visit: Yes Status: Acute Plan: On IV levaquin for now Qualifiers: Urinary tract infection type: site unspecified Hematuria presence: without hematuria Qualified Code(s): N39.0 - Urinary tract infection, site not specified (4) DM (diabetes mellitus), type 2 Onset Date: 02/03/18 Current Visit: Yes Status: Chronic Qualifiers: Diabetes mellitus fci insulin use: without fci use Diabetes mellitus complication status: with other specified complication Qualified Code (s): E11.69 - Type 2 diabetes mellitus with other specified complication (5) History of CVA with residual deficit Current Visit: Yes Status: Chronic (6) Hyperlipidemia Current Visit: Yes Status: Chronic Qualifiers: Hyperlipidemia type: unspecified Qualified Code(s): E78.5 - Hyperlipidemia , unspecified (7) Hypertension Onset Date: 02/03/18 Current Visit: Yes Status: Chronic Qualifiers: Hypertension type: essential hypertension Qualified Code(s): I10 - Essential (primary) hypertension
[2018-02-07] MEDS: GLUCERNA 1.5 CAL 1,000 ML BOT FT SCH ×4 (10:08→22:19)
[2018-02-07] MEDS: Levofloxacin500mg IV 500 MG/100 ML BAG IV SCH (12:13)
[2018-02-08 05:27] LABS: BUN Blood Urea Nitrogen 12 mg/dL (6-20); Bicarbonate 28 mEq/L (21-31); Glucose Level 174 mg/dL (65-120); Magnesium 1.8 mg/dL (1.8-2.5); Potassium 4.1 mEq/L (3.6-5.0); Sodium Level 136 mEq/L (135-145)
[2018-02-08] MEDS ORDERED: MAGNESIUM SULFATE 1 gm IVPB 1 GM/100 ML BAG IV ONE (05:52)
[2018-02-08] MEDS: INSULIN -REGULAR HUMAN 50 UNIT/0.5 ML ML SQ SCH ×4 (07:30→21:00)
[2018-02-08] MEDS: METOPROLOL TAR 50 MG TAB PO SCH ×2 (09:15→21:35)
[2018-02-08] MEDS: Levofloxacin500mg IV 500 MG/100 ML BAG IV SCH (09:16)
[2018-02-08] MEDS: LISINOPRIL 20 MG TAB PO SCH (09:16)
[2018-02-08] MEDS: PANTOPRAZOLE 40 MG INJ IVP SCH (09:16)
[2018-02-08] MEDS: GLUCERNA 1.5 CAL 1,000 ML BOT FT SCH ×4 (09:17→21:35)
[2018-02-08] MEDS: D5 0.9 NS 1,000 ML IV SCH (13:40)
--- NOTE | 2018-02-08 14:11 | P.PN ---
Subjective Date of Service: 02/08/18 Primary Care Provider: Unknown Chief Complaint: Patient with right upper lobe cavitary pneumonia Pt seen and examined at bedside with RN. Case DW with GI and pt overall doing well S/P PEG tube placement. Currently awaiting PEG tube nutrition setup at home. Review of Systems General: As per HPI Physical Examination - Vital Signs Temperature: 97.7 F Blood Pressure: 158/81 Pulse: 60 Respirations: 18 Pulse Ox (%): 96 - Physical Exam General: Alert, In no apparent distress HEENT: Atraumatic, PERRLA, EOMI Neck: Supple, JVD not distended Respiratory: Clear to auscultation bilaterally, Normal air movement Cardiovascular: Regular rate/rhythm, Normal S1 S2 Gastrointestinal: Normal bowel sounds, No tenderness Musculoskeletal: No tenderness Integumentary: No rashes Neurological: Normal tone, Normal affect Lymphatics: No axilla or inguinal lymphadenopathy - Studies Medications List Reviewed: Yes Assessment & Plan - Problems (Diagnosis) (1) Dysphagia Current Visit: Yes Status: Acute Plan: Dysphagia with H/o CVA in the past. -S.P PEG tube placement with GI POD# 4 -Dietary Consulted. Reccs appreciated -Awaiting HH setup for nutrition -DC in 24 to 48 hrs Qualifiers: Dysphagia type: unspecified Qualified Code(s): R13.10 - Dysphagia, unspecified (2) Cavitary pneumonia Onset Date: 02/03/18 Current Visit: Yes Status: Acute Plan: Cavitary PNA on the xray -IV abx levaquin -R/O TB for now. Awaiting AFB culture at this time -Pulmonology consulted. -Most Likely Aspiration PNA -Will F.U with culture (3) UTI (urinary tract infection) Current Visit: Yes Status: Acute Plan: On IV levaquin for now Qualifiers: Urinary tract infection type: site unspecified Hematuria presence: without hematuria Qualified Code(s): N39.0 - Urinary tract infection, site not specified (4) DM (diabetes mellitus), type 2 Onset Date: 02/03/18 Current Visit: Yes Status: Chronic Qualifiers: Diabetes mellitus watermelon inspector insulin use: without watermelon inspector use Diabetes mellitus complication status: with other specified complication Qualified Code (s): E11.69 - Type 2 diabetes mellitus with other specified complication (5) History of CVA with residual deficit Current Visit: Yes Status: Chronic (6) Hyperlipidemia Current Visit: Yes Status: Chronic Qualifiers: Hyperlipidemia type: unspecified Qualified Code(s): E78.5 - Hyperlipidemia , unspecified (7) Hypertension Onset Date: 02/03/18 Current Visit: Yes Status: Chronic Qualifiers: Hypertension type: essential hypertension Qualified Code(s): I10 - Essential (primary) hypertension
[2018-02-08] MEDS ORDERED: D5 0.9 NS 1,000 ML IV SCH (19:00)
[2018-02-09 04:44] LABS: BUN Blood Urea Nitrogen 12 mg/dL (6-20); Bicarbonate 28 mEq/L (21-31); Glucose Level 146 mg/dL (65-120); Sodium Level 137 mEq/L (135-145)
[2018-02-09] MEDS: INSULIN -REGULAR HUMAN 50 UNIT/0.5 ML ML SQ SCH ×4 (07:30→21:00)
[2018-02-09] MEDS: METOPROLOL TAR 50 MG TAB PO SCH ×2 (08:15→21:32)
[2018-02-09] MEDS: GLUCERNA 1.5 CAL 1,000 ML BOT FT SCH ×4 (08:16→21:00)
[2018-02-09] MEDS: PANTOPRAZOLE 40 MG INJ IVP SCH (08:16)
[2018-02-09] MEDS: LISINOPRIL 20 MG TAB PO SCH (08:16)
--- NOTE | 2018-02-09 09:36 | P.PN ---
Subjective Date of Service: 02/09/18 Primary Care Provider: Unknown Chief Complaint: Patient with right upper lobe cavitary pneumonia Pt seen and examined at bedside with RN. Case DW with GI and pt overall doing well S/P PEG tube placement. Currently awaiting PEG tube nutrition setup at home. Review of Systems General: As per HPI Physical Examination - Vital Signs Temperature: 97.1 F Blood Pressure: 177/69 Pulse: 59 Respirations: 18 Pulse Ox (%): 96 - Physical Exam General: Alert, In no apparent distress, Oriented x1 HEENT: Atraumatic, PERRLA, EOMI Neck: Supple, JVD not distended Respiratory: Clear to auscultation bilaterally, Normal air movement Cardiovascular: Regular rate/rhythm, Normal S1 S2 Gastrointestinal: Normal bowel sounds, No tenderness Musculoskeletal: No tenderness Integumentary: No rashes Neurological: Normal speech, Normal tone, Normal affect Lymphatics: No axilla or inguinal lymphadenopathy - Studies Medications List Reviewed: Yes Assessment & Plan - Problems (Diagnosis) (1) Dysphagia Current Visit: Yes Status: Acute Plan: Dysphagia with H/o CVA in the past. -S.P PEG tube placement with GI POD# 4 -Dietary Consulted. Reccs appreciated -Awaiting HH setup for nutrition -DC in 24 to 48 hrs Qualifiers: Dysphagia type: unspecified Qualified Code(s): R13.10 - Dysphagia, unspecified (2) Cavitary pneumonia Onset Date: 02/03/18 Current Visit: Yes Status: Acute Plan: Cavitary PNA on the xray -IV abx levaquin 05/22 -R/O TB for now. Awaiting AFB culture at this time -Pulmonology consulted. -Most Likely Aspiration PNA -Will F.U with culture (3) UTI (urinary tract infection) Current Visit: Yes Status: Acute Plan: On IV levaquin for now Qualifiers: Urinary tract infection type: site unspecified Hematuria presence: without hematuria Qualified Code(s): N39.0 - Urinary tract infection, site not specified (4) DM (diabetes mellitus), type 2 Onset Date: 02/03/18 Current Visit: Yes Status: Chronic Qualifiers: Diabetes mellitus residential insulin use: without supervisor propellant charge loading use Diabetes mellitus complication status: with other specified complication Qualified Code (s): E11.69 - Type 2 diabetes mellitus with other specified complication (5) History of CVA with residual deficit Current Visit: Yes Status: Chronic (6) Hyperlipidemia Current Visit: Yes Status: Chronic Qualifiers: Hyperlipidemia type: unspecified Qualified Code(s): E78.5 - Hyperlipidemia , unspecified (7) Hypertension Onset Date: 02/03/18 Current Visit: Yes Status: Chronic Qualifiers: Hypertension type: essential hypertension Qualified Code(s): I10 - Essential (primary) hypertension Discharge Plan: Home Plan to discharge in: 48 Hours - Code Status/Comfort Care Code Status Assessed: Yes Critical Care: No
[2018-02-09] MEDS: Levofloxacin500mg IV 500 MG/100 ML BAG IV SCH (12:52)
[2018-02-10] MEDS: INSULIN -REGULAR HUMAN 50 UNIT/0.5 ML ML SQ SCH ×4 (07:30→21:00)
[2018-02-10] MEDS: METOPROLOL TAR 50 MG TAB PO SCH ×2 (09:00→21:38)
[2018-02-10] MEDS: GLUCERNA 1.5 CAL 1,000 ML BOT FT SCH ×4 (09:00→21:38)
[2018-02-10] MEDS: LISINOPRIL 20 MG TAB PO SCH (09:17)
[2018-02-10] MEDS: PANTOPRAZOLE 40 MG INJ IVP SCH (09:18)
[2018-02-10] MEDS: Levofloxacin500mg IV 500 MG/100 ML BAG IV SCH (11:00)
--- NOTE | 2018-02-10 13:02 | P.DS ---
Admission Date: 01/30/18 Discharge Date: 02/10/18 Primary Care Provider: Unknown Reason for Admission: Patient with right upper lobe cavitary pneumonia Consultations: Pulmonology GI Procedures: PEG tube placement - Problems (1) Dysphagia Current Visit: Yes Status: Acute Qualifiers: Dysphagia type: unspecified Qualified Code(s): R13.10 - Dysphagia, unspecified (2) Cavitary pneumonia Onset Date: 02/03/18 Current Visit: Yes Status: Acute (3) UTI (urinary tract infection) Current Visit: Yes Status: Acute Qualifiers: Urinary tract infection type: site unspecified Hematuria presence: without hematuria Qualified Code(s): N39.0 - Urinary tract infection, site not specified (4) DM (diabetes mellitus), type 2 Onset Date: 02/03/18 Current Visit: Yes Status: Chronic Qualifiers: Diabetes mellitus assistant terminal manager insulin use: without assistant terminal manager use Diabetes mellitus complication status: with other specified complication Qualified Code (s): E11.69 - Type 2 diabetes mellitus with other specified complication (5) History of CVA with residual deficit Current Visit: Yes Status: Chronic (6) Hyperlipidemia Current Visit: Yes Status: Chronic Qualifiers: Hyperlipidemia type: unspecified Qualified Code(s): E78.5 - Hyperlipidemia , unspecified (7) Hypertension Onset Date: 02/03/18 Current Visit: Yes Status: Chronic Qualifiers: Hypertension type: essential hypertension Qualified Code(s): I10 - Essential (primary) hypertension Brief History of Present Illness: Patient is a 57-year-old female who has a history CVA. She has residual expressive aphasia. 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 She came into the hospital with generalized weakness and she was confused. Patient's significant other brought her into the emergency room. Patient's initial chest x-ray showed a right upper lobe pneumonia. Patient had a CT scan to better define the pneumonia and this revealed a cavitary lesion. Patient's significant other denies any hemoptysis or weight loss. Patient does not have any night sweats. At this time will move her into isolation and await for her cultures and testing for acid fast bacilli. We will also consult Pulmonary. Hospital Course: Overall during the hospital stay patient remained stable. The patient was initially admitted to the hospital for generalized weakness and sepsis. Patient was found to have a UTI, aspiration pneumonia and dysphagia here in the hospital. Initially on the day of admission patient was complaining of having some generalized weakness at home along with increased confusion from her baseline. Patient had extensive workup done here in the hospital initially patient was found to have cavitary lesions on the chest x-ray and the concern was there for 2 refills is. Patient had an AFP done here and pulmonology was consulted. Patient's AFB stain was negative and patient was considered for aspiration pneumonia. Patient had a speech therapy consulted here in the hospital who was concerned regarding dysphagia and an MBS was done. MBS was positive for dysphagia most likely secondary to acute worsening secondary to pneumonia versus history of CVA. GI was consulted and patient had a PEG tube placement for her dysphagia. For her cavitary pneumonia patient was started on Levaquin initially IV and was switched over to oral once the PEG tube was placed. Patient was doing well on PO abx. Patient was then discharged home under stable condition once her nutrition was setup with home health and family to care for her. Patient is to continue taking Levaquin for 14 total days for her urinary tract infection her aspiration pneumonia. Patient is to follow up with her primary care doctor and GI in about 1-2 days post discharge. Vital Signs/Physical Exam: Temp Pulse Resp BP Pulse Ox 97.0 F 67 20 138/73 91 02/10/18 08:00 02/10/18 08:00 02/10/18 08:00 02/10/18 08:00 02/10/18 08:00 General: Alert, In no apparent distress HEENT: Atraumatic, PERRLA, EOMI Neck: Supple, JVD not distended Respiratory: Clear to auscultation bilaterally, Normal air movement Cardiovascular: Regular rate/rhythm, Normal S1 S2 Gastrointestinal: Normal bowel sounds, No tenderness Musculoskeletal: No tenderness Integumentary: No rashes Neurological: Normal speech, Normal tone, Normal affect Lymphatics: No axilla or inguinal lymphadenopathy Laboratory Data at Discharge: WBC 7.2 K/uL (4.3-10.9) D 02/03/18 03:30 Hgb 11.6 g/dL (12.0-15.0) L 02/03/18 03:30 Hct 34.6 % (36.0-45.0) L 02/03/18 03:30 Plt Count 369 K/uL (152-406) 02/03/18 03:30 PT 13.8 SECONDS (9.5-12.5) H 01/30/18 19:32 INR 1.17 01/30/18 19:32 APTT 26.9 SECONDS (24.3-36.9) 01/30/18 19:32 Sodium 137 mEq/L (135-145) 02/09/18 03:32 Potassium 4.0 mEq/L (3.6-5.0) 02/09/18 03:32 BUN 12 mg/dL (6-20) 02/09/18 03:32 Creatinine 0.59 mg/dL (0.44-1.00) 02/09/18 03:32 Glucose 146 mg/dL (65-120) H 02/09/18 03:32 Magnesium 2.0 mg/dL (1.8-2.5) 02/09/18 03:32 Total Bilirubin 0.6 mg/dL (0.3-1.2) 01/30/18 19:32 AST 34 IU/L (10-42) 01/30/18 19:32 ALT 27 IU/L (10-60) 01/30/18 19:32 Alkaline Phosphatase 119 IU/L (42-121) 01/30/18 19:32 B-Natriuretic Peptide 32 pg/ml (<=100) 01/30/18 19:32 Triglycerides 104 mg/dL (35-160) 01/31/18 05:46 Cholesterol 83 mg/dL (<200) 01/31/18 05:46 HDL Cholesterol 18 mg/dL (29-89) L 01/31/18 05:46 Cholesterol/HDL Ratio 4.61 01/31/18 05:46 Lipase 21 U/L (22-51) L 01/30/18 19:32 Home Medications: Lisinopril 20 mg PO DAILY 09/06/16 Metformin HCl 1,000 mg PO BID 09/06/16 Atorvastatin Calcium [Lipitor] 20 mg PO BEDTIME #30 tab 09/09/16 Metoprolol Tartrate [Lopressor*] 50 mg PO BID #60 tab 09/09/16
[2018-02-11] MEDS: INSULIN -REGULAR HUMAN 50 UNIT/0.5 ML ML SQ SCH ×4 (07:30→21:00)
[2018-02-11] MEDS: SODIUM CHLORIDE 0.9% 10ML INJ IV PRN (09:08)
[2018-02-11] MEDS: PANTOPRAZOLE 40 MG INJ IVP SCH (09:08)
[2018-02-11] MEDS: GLUCERNA 1.5 CAL 1,000 ML BOT FT SCH ×4 (09:08→21:00)
[2018-02-11] MEDS: Levofloxacin500mg IV 500 MG/100 ML BAG IV SCH (09:09)
[2018-02-11] MEDS: LISINOPRIL 20 MG TAB PO SCH (09:09)
[2018-02-11] MEDS: METOPROLOL TAR 50 MG TAB PO SCH ×2 (09:09→21:00)
--- NOTE | 2018-02-11 14:10 | P.PN ---
Subjective Date of Service: 02/11/18 Primary Care Provider: Unknown Chief Complaint: Patient with right upper lobe cavitary pneumonia Pt seen and examined at bedside with RN. Case DW with GI and pt overall doing well S/P PEG tube placement. Currently awaiting PEG tube nutrition setup at home. Not able to DC home yesterday as [employer] is awaiting auth now. Possible DC in 24hrs Review of Systems General: As per HPI Physical Examination - Vital Signs Temperature: 97.9 F Blood Pressure: 147/60 Pulse: 65 Respirations: 18 Pulse Ox (%): 91 - Physical Exam General: Alert, In no apparent distress HEENT: Atraumatic, PERRLA, EOMI Neck: Supple, JVD not distended Respiratory: Clear to auscultation bilaterally, Normal air movement Cardiovascular: Regular rate/rhythm, Normal S1 S2 Gastrointestinal: Normal bowel sounds, No tenderness Musculoskeletal: No tenderness Integumentary: No rashes Neurological: Normal speech, Normal tone, Normal affect Lymphatics: No axilla or inguinal lymphadenopathy - Studies Medications List Reviewed: Yes Assessment & Plan - Problems (Diagnosis) (1) Dysphagia Current Visit: Yes Status: Acute Plan: Dysphagia with H/o CVA in the past. -S.P PEG tube placement with GI POD# 4 -Dietary Consulted. Reccs appreciated -Awaiting HH setup for nutrition -DC in 24 to 48 hrs Qualifiers: Dysphagia type: unspecified Qualified Code(s): R13.10 - Dysphagia, unspecified (2) Cavitary pneumonia Onset Date: 02/03/18 Current Visit: Yes Status: Acute Plan: Cavitary PNA on the xray -IV abx levaquin 05/22 -R/O TB for now. Awaiting AFB culture at this time -Pulmonology consulted. -Most Likely Aspiration PNA -Will F.U with culture (3) UTI (urinary tract infection) Current Visit: Yes Status: Acute Plan: On IV levaquin for now Qualifiers: Urinary tract infection type: site unspecified Hematuria presence: without hematuria Qualified Code(s): N39.0 - Urinary tract infection, site not specified (4) DM (diabetes mellitus), type 2 Onset Date: 02/03/18 Current Visit: Yes Status: Chronic Qualifiers: Diabetes mellitus director agricultural services insulin use: without detention use Diabetes mellitus complication status: with other specified complication Qualified Code (s): E11.69 - Type 2 diabetes mellitus with other specified complication (5) History of CVA with residual deficit Current Visit: Yes Status: Chronic (6) Hyperlipidemia Current Visit: Yes Status: Chronic Qualifiers: Hyperlipidemia type: unspecified Qualified Code(s): E78.5 - Hyperlipidemia , unspecified (7) Hypertension Onset Date: 02/03/18 Current Visit: Yes Status: Chronic Qualifiers: Hypertension type: essential hypertension Qualified Code(s): I10 - Essential (primary) hypertension
[2018-02-12] MEDS: INSULIN -REGULAR HUMAN 50 UNIT/0.5 ML ML SQ SCH ×3 (07:30→15:46)
[2018-02-12] MEDS: METOPROLOL TAR 50 MG TAB PO SCH (09:48)
[2018-02-12] MEDS: LISINOPRIL 20 MG TAB PO SCH (09:48)
[2018-02-12] MEDS: PANTOPRAZOLE 40 MG INJ IVP SCH (09:48)
[2018-02-12] MEDS: GLUCERNA 1.5 CAL 1,000 ML BOT FT SCH ×2 (09:49→14:10)
[2018-02-12] MEDS: Levofloxacin500mg IV 500 MG/100 ML BAG IV SCH (11:21)
--- NOTE | 2018-02-12 13:33 | P.PN ---
Date of Service: 02/12/18 The patient remain hemodynamically stable. The delay in discharge was due to awaiting on nutrition supply approval by the insurance. At this point, the patient is ready to be discharge in stable condition. Please refer to Dr Carmona summary discharge for details and instructions.
[2018-02-12 13:41] VITALS: O2SAT 93
[2018-02-12 16:26] VITALS: BP 164/76; TEMP 97.1
--- NOTE | 2018-04-26 23:27 | CON ---
Date of Consultation: 02/03/2018 Reason For Consultation: Laryngeal penetration of modified barium swallow with dysphagia, probable a spiration pneumonia. History Of Present Illness: The patient is a 57-year-old female with history of stroke and right upp er lobe cavitary pneumonia. Due to her stroke with right upper lobe cavitary pneumonia, the patient underwent modified barium swallow. This did reveal probable aspiration with the study, significant d ifficulty with oral transfer and delayed swallow reflex was noted as well as probable aspiration. GI was consulted to see if this patient would need possible PEG tube placement for alternative to enter al nutrition. Past Medical History: Significant for diabetes, hypertension, stroke, oophorectomy. Medications: At home include lisinopril, metformin, Lipitor, Lopressor. Allergies: NKDA. Social History: No tobacco, no alcohol. Family History: Father had coronary artery disease. Mother of a stroke. Review of Systems: The patient has shortness of breath, also urinary tract infection. No melena hematochezia, medicatio ns, coffee-ground emesis, hematuria, dysuria, polydipsia, lower extremity edema, muscle aches, joint aches, backache. No depression, anxiety, seizures, syncope, worsening paresthesias. Physical Examination: General: She is 5 feet 7 inches, 143 pounds, BMI 22.4 kg/m2. Vital Signs: Temperature 97.5 degrees Fahrenheit, pulse 56, respirations 18, blood pressure 130/74, O2 saturation 97%. HEENT: Normocephalic, atraumatic. Anicteric. Pupils are equal, round, and reactive to light. Extr aocular movements intact. Oropharynx is clear. Neck: Supple. No masses. Respirations: Decreased breath sounds. Cardiac: Regular rate and rhythm. No gallops or rubs. Gastrointestinal: Positive bowel sounds. Soft, nontender, nondistended. No hepatosplenomegaly. Extremities: No clubbing, cyanosis, or edema. 2+ pulses. Neuro: Alert and oriented X3. Grossly nonfocal. 5/5 motor strength. Sensation intact to light torey ch. Laboratory Data: The patient has a white count of 7.2 hemoglobin of 11.6, hematocrit 34.6, MCV of 83 , platelet count 369, polys 67%, lymphocytes 20%, monocytes 9%, eosinophils 3%, basophils 1%. PT of 13.8, INR of 1.2, PTT of 26.9. Sodium 137, potassium 3.4, chloride 105, bicarb 27, BUN 9, creatinine 0.6, glucose 111, calcium 8.1, magnesium 1.7. Cholesterol, triglycerides 104, cholesterol LDL is 44 , HDL is 18, lipase 21. UA 1+ blood, 3+ leukocyte esterase, 2+ protein. CT chest shows moderate-siz e cavitary pneumonia, suspected right upper lobe posterior and right small pleural effusion. Modifie d barium swallow on revealed significant difficulty coordinating oral transfer with delayed swal low reflex, aspiration, cough with thin nectar and honey and pureed foods laryngeal penetration with clear liquids, moderate pharyngeal residue in the valleculae and piriform sinuses. Impression: 1.Probable aspiration pneumonia with modified barium swallow revealed laryngeal penetration and prob able aspiration with dysphagia, poor coordination of the oral transfer into the back of the esophagus . 2.Right lung pneumonia, improving on antibiotics currently. 3.Urinary tract infection. 4.History of stroke with expressive aphasia, right hemiparesis, and also has history of diabetes, hy pertension, hysterectomy with bilateral salpingo-oophorectomy. Recommendation: 1.Proceed with EGD with PEG tomorrow. 2.Hold Lovenox. 3.Continue IV fluids and IV antibiotics. NICOLE Voice ID: [id number] Report ID: [id number]
== END 2018-02-12 16:27 | disposition home or self-care (01) | DRG 178 ==
LOC: ER 17:14 → ERHOLD 20:04 → 4TH 20:18
PROVIDERS: ADMIT Hospitalist; ATTEND Internal Medicine
PROC: 0DH63UZ Insertion of Feeding Device into Stomach, Percutaneous Approach (ICD-10-PCS; principal; 2018-02-04 11:45)
DX: J69.0 Pneumonitis due to inhalation of food and vomit (principal); E87.1 Hypo-osmolality and hyponatremia; N39.0 Urinary tract infection, site not specified; I69.320 Aphasia following cerebral infarction; E87.6 Hypokalemia; E83.42 Hypomagnesemia; R13.10 Dysphagia, unspecified; E11.9 Type 2 diabetes mellitus without complications; I10 Essential (primary) hypertension; E78.5 Hyperlipidemia, unspecified
CPT/HCPCS: 36415; 51702; 70450; 70551; 71045; 71260; 74230; 80048; 80061; 80076; 81003; 82550; 82553; 82962; 83036; 83605; 83690; 83735; 83880; 84132; 84145; 84443; 84484; 85025; 85610; 85730; 86140; 87015; 87040; 87077; 87086; 87088; 87116; 87186; 87206; 93005; 94640; 94760; 96365; 96375; 99285; C9113; J0360; J0456; J0696; J1650; J3475; J7030; Q9967

== ENCOUNTER 2018-05-15 12:47 | Emergency (ER) | payer MEDICAID ==
[2018-05-15 14:06] LABS: Absolute Monocytes 0.5 K/uL (0.1-1.3); Absolute Neutrophil 5.5 K/uL (1.8-8.0); Basophils % 0.8 % (0-1.3); Hematocrit 48.6 % (36.0-45.0); Lymphocytes % 24.3 % (15.3-44.8); MCH 29.4 pg (27.0-35.0); MCV 85.3 fL (80-100); MPV 9.6 fL (7.6-11.3); Monocytes % 6.2 % (3.3-12.3); RBC Red Blood Cell Count 5.69 M/uL (3.86-4.86)
[2018-05-15 14:33] LABS: Albumin 3.7 g/dL (3.4-5.0); Bilirubin Total 0.5 mg/dL (0.2-1.0); Potassium 4.5 mmol/L (3.5-5.1); Protein, Total 8.9 g/dL (6.4-8.2)
--- NOTE | 2018-05-15 15:51 | RAD REPORT ---
EXAM DESCRIPTION: CT - Abdomen Pelvis W Contrast - 05/15/2018 3:10 pm CLINICAL HISTORY: Abdominal pain, infected PEG tube COMPARISON: CT May 2008 TECHNIQUE: Biphasic, helical CT imaging of the abdomen and pelvis was performed following 100 ml non -ionic IV contrast. Oral contrast was given. All CT scans are performed using dose optimization technique as appropriate and may include automated exposure control or mA/KV adjustment according to patient size. FINDINGS: No suspicious findings in the lung bases. The liver, spleen, and pancreas show no suspicious findings. Numerous gallstones are present. These a re new or enlarged from 2007. No wall thickening or pericholecystic fluid. No biliary tree dilatation . Symmetric renal function is seen with no hydronephrosis or suspicious renal mass. No pyelonephritis o r acute renal parenchymal process. No urinary bladder abnormality. Uterus is absent. Ovaries are abse nt or atrophic. No adnexal mass. No gastric dilatation. No gastric wall thickening or mass identifiable. PEG tube is in place in the m idline abdomen. There is a minimal amount of stranding along the course of the PEG tube. There is no abscess, air or other significant finding associated with the PEG tube. Nondilated fluid-filled small bowel loops are present. Moderate stool volume throughout the colon. No acute colon process. No free air, free fluid or inflammatory stranding. No hernia, mass or bulky l ymphadenopathy. No suspicious bony findings. IMPRESSION: Minimal amount of soft tissue and stranding along the course of the PEG tube with the ba seline for the patient unknown. No abscess, free air or other suspicious finding along the course of the PEG tube. Multi stone cholelithiasis new or progressive from 2007. Active gallbladder process is not suspected. No acute large or small bowel finding. No free air or other surgically emergent process.
--- NOTE | 2018-05-15 16:14 | EDPHYS ---
Physician Documentation [facility] Name: Juana Navarro Age: 58 yrs Sex: Female : 1960 Arrival Date: 05/15/2018 Time: 12:48 Bed 13 Private MD: out of town, doctor; Unknown, Unknown ED Physician Billy Green HPI: 05/15 13:37 This 58 yrs old Female presents to ER via Wheelchair with complaints of jmm FEEDING TUBE PROBLEM. 13:37 Foul smelling PEG tube. Onset: The symptoms/episode began/occurred gradually, 2 week(s) jmm ago. The patient has not experienced similar symptoms in the past. This is a 58 year old female with a history of CVA, DM that presents to the ED with concerns due to a foul smelling peg tube. family states she is still able to feed through the tube and states the area around the tube itches. Denies fever, vomiting. Historical: - Allergies: 13:03 No Known Allergies; ch - Home Meds: 13:03 lisinopril 20 mg Oral tab [Active]; metformin 1,000 mg Oral tr24 2 tabs once daily ch [Active]; Plavix 75 mg Oral tab 1 tab once daily [Active]; - PMHx: 13:03 CVA; Diabetes - NIDDM; Hypertension; NPO, aspiration; ch - PSHx: 13:03 ovaries removed; ch - Immunization history:: Adult Immunizations up to date. - Social history:: Smoking status: Patient/guardian denies using tobacco, Patient/guardian denies using alcohol, street drugs. - Ebola Screening: : Patient negative for fever greater than or equal to 101.5 degrees Fahrenheit, and additional compatible Ebola Virus Disease symptoms Patient denies exposure to infectious person Patient denies travel to an Ebola-affected area in the 21 days before illness onset No symptoms or risks identified at this time. ROS: 13:37 Constitutional: Negative for fever, chills, and weight loss, Respiratory: Negative for jmm shortness of breath, cough, wheezing, and pleuritic chest pain, Abdomen/GI: Negative for abdominal pain, nausea, vomiting, diarrhea, and constipation. 13:37 Skin: Positive for erythema. 13:37 All other systems are negative. Exam: 13:37 Head/Face: atraumatic. Chest/axilla: Normal chest wall appearance and motion. [facility] Cardiovascular: Regular rate and rhythm. No edema appreciated Respiratory: Normal respirations, no respiratory distress appreciated 13:37 Constitutional: The patient appears alert, awake. 13:37 Neck: ROM/movement: is normal. 13:37 Abdomen/GI: Abdomen soft, Non TTP, mild erythema surround peg tube. No purulent drainage is appreciated. 13:37 Skin: mild erythema noted surrounding peg tube site, non tender to palpation. Vital Signs: 13:30 Temp 98.3(O); em 13:30 BP 146 / 103; Pulse 83; Resp 16; Pulse Ox 99% on R/A; ja1 14:52 BP 157 / 96; Pulse 86; Resp 18; Pulse Ox 99% on R/A; em 16:49 BP 144 / 79; Pulse 72; Resp 18; Pulse Ox 96% on R/A; Pain 0/10; ja1 16:49 Alanna (FACES) ja1 MDM: 13:37 Patient medically screened. [facility] 16:05 ED course: Patient is non toxic in appearance. CT shows no acute intrabdominal [facility] findings. patient will be prescribed antibiotics and advised to follow up with GI in 1 to 2 days for reevaluation.. given strict return precautions. Family understood and agrees with the plan of care. . 16:09 Data reviewed: vital signs, nurses notes, lab test result(s), radiologic studies, CT [facility] scan. Counseling: I had a detailed discussion with the patient and/or guardian regarding: the historical points, exam findings, and any diagnostic results supporting the discharge/admit diagnosis, the need for outpatient follow up, to return to the emergency department if symptoms worsen or persist or if there are any questions or concerns that arise at home. 05/15 13:37 Order name: CBC with Diff; Complete Time: 15:06 [facility] 05/15 13:37 Order name: CMP; Complete Time: 14:36 [facility] 05/15 13:37 Order name: Saline Lock; Complete Time: 13:58 [facility] 05/15 13:46 Order name: CT Abd/Pelvis - W/Contrast; Complete Time: 15:58 [facility] Administered Medications: No medications were administered Disposition: 18:16 Co-signature as Attending Physician, Billy Green MD I agree with the assessment and kdr plan of care. Disposition: 05/15/18 16:10 Discharged to Home. Impression: Cellulitis of abdominal wall. - Condition is Stable. - Discharge Instructions: Cellulitis, Adult. - Prescriptions for sulfamethoxazole- trimethoprim 200-40 mg/5 mL Oral Suspension - take 20 milliliter by ORAL route every 12 hours for 10 days; 400 milliliter. - Medication Reconciliation Form, Thank You Letter, Antibiotic Education, Prescription Opioid Use form. - Follow up: Jesus Tay MD; When: 2 - 3 days; Reason: Recheck today's complaints, Continuance of care, Re-evaluation by your physician. Signatures: Dispatcher [employer] Radha Hudson RN RN Billy Richards MD MD kdr Mickail, Joel, PA PA jmm Munoz, Edgar, LVN CRACKER SPRAYER em Corrections: (The following items were deleted from the chart) 16:53 16:10 05/15/2018 16:10 Discharged to Home. Impression: Cellulitis of abdominal wall. em Condition is Stable. Forms are Medication Reconciliation Form, Thank You Letter, Antibiotic Education, Prescription Opioid Use. Follow up: Jesus Tay; When: 2 - 3 days; Reason: Recheck today's complaints, Continuance of care, Re-evaluation by your physician. leda
--- NOTE | 2018-05-15 16:14 | ER ---
Nurse's Notes [facility] Name: Juana Navarro Age: 58 yrs Sex: Female : 1960 Arrival Date: 05/15/2018 Time: 12:48 Bed 13 Private MD: out of town, doctor; Unknown, Unknown Diagnosis: Cellulitis of abdominal wall Presentation: 05/15 13:00 Presenting complaint: Child states: foul smell from peg tube for the past two to three ch weeks. pt c/o it itches. Transition of care: patient was not received from another setting of care. Onset of symptoms was April 27, 2018. Risk Assessment: Do you want to hurt yourself or someone else? Patient reports no desire to harm self or others. Initial Sepsis Screen: Does the patient meet any 2 criteria? No. Patient's initial sepsis screen is negative. Does the patient have a suspected source of infection? No. Patient's initial sepsis screen is negative. Care prior to arrival: None. 13:00 Method Of Arrival: Wheelchair 13:00 Acuity: DAVID 4 ch Triage Assessment: 13:03 General: Appears in no apparent distress. comfortable, Behavior is calm, cooperative, ch appropriate for age. Pain: Denies pain. Historical: - Allergies: 13:03 No Known Allergies; ch - Home Meds: 13:03 lisinopril 20 mg Oral tab [Active]; metformin 1,000 mg Oral tr24 2 tabs once daily [Active]; Plavix 75 mg Oral tab 1 tab once daily [Active]; - PMHx: 13:03 CVA; Diabetes - NIDDM; Hypertension; NPO, aspiration; - PSHx: 13:03 ovaries removed; - Immunization history:: Adult Immunizations up to date. - Social history:: Smoking status: Patient/guardian denies using tobacco, Patient/guardian denies using alcohol, street drugs. - Ebola Screening: : Patient negative for fever greater than or equal to 101.5 degrees Fahrenheit, and additional compatible Ebola Virus Disease symptoms Patient denies exposure to infectious person Patient denies travel to an Ebola-affected area in the 21 days before illness onset No symptoms or risks identified at this time. Screenin:39 Abuse screen: Denies threats or abuse. Nutritional screening: No deficits noted. em Tuberculosis screening: No symptoms or risk factors identified. Fall Risk None identified. Assessment: 13:30 General: Appears in no apparent distress. comfortable, Behavior is calm. Pain: Unable em to use pain scale. FLACC scale score is 0 out of 10. Neuro: Level of Consciousness is awake, alert, obeys commands, Oriented to unable to assess, pt does not speak due to previous CVA about 20 years ago per child. Cardiovascular: Capillary refill < 3 seconds Patient's skin is warm and dry. Respiratory: Airway is patent Respiratory effort is even, unlabored, Respiratory pattern is regular, symmetrical. GI: PEG tube in place, to gravity drainage. Derm: Skin is intact, Skin is pink, warm \T\ dry. Musculoskeletal: Parent/caregiver report the patient having pt is bed bound due to prior CVA. 13:50 Reassessment: Patient appears in no apparent distress at this time. I agree with above iw assessment by Jigar Trujillo LVN. 14:30 Reassessment: Patient appears in no apparent distress at this time. Patient and/or em family updated on plan of care and expected duration. Pain level reassessed. 16:03 Reassessment: Patient appears in no apparent distress at this time. Patient and/or em family updated on plan of care and expected duration. Pain level reassessed. family at bedside. 16:47 Reassessment: Patient appears in no apparent distress at this time. Patient and/or ja1 family updated on plan of care and expected duration. Pain level reassessed. changed PEG tube dressing, flushed PEG tube with 20 ml of water, pt tolerated well. Vital Signs: 13:30 Temp 98.3(O); em 13:30 BP 146 / 103; Pulse 83; Resp 16; Pulse Ox 99% on R/A; ja1 14:52 BP 157 / 96; Pulse 86; Resp 18; Pulse Ox 99% on R/A; em 16:49 BP 144 / 79; Pulse 72; Resp 18; Pulse Ox 96% on R/A; Pain 0/10; ja1 16:49 [place]-[facility] (FACES) ja1 ED Course: 12:48 Patient arrived in ED. sb2 12:49 Unknown, Unknown is Private Physician. sb2 12:49 out of town, doctor is Private Physician. sb2 13:00 Radha Trevizo, RN is Primary Nurse. ch 13:02 Triage completed. 13:31 Tyson Landrum PA is PHCP. [facility] 13:31 Billy Green MD is Attending Physician. [facility] 13:39 Patient has correct armband on for positive identification. Bed in low position. Call em light in reach. Side rails up X2. Adult w/ patient. 13:39 No provider procedures requiring assistance completed. em 14:04 Arm band placed on. iw 15:10 CT Abd/Pelvis - W/Contrast In Process Unspecified. EDMS 16:09 Jesus Tay MD is Referral Physician. [facility] 16:48 IV discontinued, intact, bleeding controlled, No redness/swelling at site. Pressure ja1 dressing applied. Administered Medications: No medications were administered Outcome: 16:10 Discharge ordered by . [facility] 16:49 Discharged to home via wheelchair. ja 16:49 Condition: good 16:49 Discharge instructions given to family, Instructed on discharge instructions, follow up and referral plans. medication usage, Demonstrated understanding of instructions, follow-up care, medications, Prescriptions given X 1. 16:53 Patient left the ED. em Signatures: Dispatcher [employer] EDMS Radha Trevizo, RN RN Tyson Landrum PA PA [facility] Jigar Trujillo, INVENTORY CHECKER INVENTORY CHECKER Idania Kim, RN RN Aba Conde RN RN [email or web address] Danica [email or web address] Corrections: (The following items were deleted from the chart) 16:04 14:30 Reassessment: Patient appears in no apparent distress at this time. Patient em and/or family updated on plan of care and expected duration. Pain level reassessed. Patient is alert, oriented x 3, equal unlabored respirations, skin warm/dry/pink. em
[2018-05-15 16:57] VITALS: TEMP 98.3
[2018-05-15 17:00] VITALS: BP 144/79; O2SAT 96
== END 2018-05-15 16:53 | disposition home or self-care (01) ==
LOC: ER 12:47
DX: L03.311 Cellulitis of abdominal wall (principal); I10 Essential (primary) hypertension; E11.9 Type 2 diabetes mellitus without complications; Z79.01 Long term (current) use of anticoagulants; Z86.73 Personal history of transient ischemic attack (TIA), and cerebral infarction without residual deficits
CPT/HCPCS: 36415; 74177; 80053; 85025; 99283; Q9967

== ENCOUNTER 2018-06-03 11:40 | Emergency (ER) | payer MEDICAID ==
--- NOTE | 2018-06-03 12:34 | RAD REPORT ---
EXAM DESCRIPTION: CT - Pelvis Wo Cont - 06/03/2018 12:07 pm CLINICAL HISTORY: PAIN Fall COMPARISON: No comparisons TECHNIQUE: All CT scans are performed using dose optimization technique as appropriate and may inclu de automated exposure control or mA/KV adjustment according to patient size. FINDINGS: Exam is limited by patient motion and positioning. Osteopenia is seen. No acute fracture or subluxation is identified. Moderate fecal retention in the rectum. IMPRESSION: Limited examination is submitted without acute finding demonstrated.
--- NOTE | 2018-06-03 13:14 | RAD REPORT ---
EXAM DESCRIPTION: RAD - Knee Left 2 View - 06/03/2018 12:58 pm CLINICAL HISTORY: Left knee pain status post fall FINDINGS: The evaluation is limited secondary to marked flexion at the knee joint. The bones are osteoporotic. No gross fracture or dislocation is seen
--- NOTE | 2018-06-03 13:28 | ER ---
Nurse's Notes [facility] Name: Juana Navarro Age: 58 yrs Sex: Female : 1960 Arrival Date: 06/03/2018 Time: 11:51 Bed 13 Private MD: Diagnosis: Contusion of hip;Pain in left knee Presentation: 06/03 11:52 Presenting complaint: EMS states: " Pt fell 2 days ago when family was attempting to ph move her from the wheelchair to the bed. Pt hx of CVA w/ AL sided deficits, family reports that she is usually able to stand and pivot but has not been able to do so since falling. Pt c/o pain in L knee and R hip. Transition of care: patient was not received from another setting of care. Onset of symptoms was June 03, 2018. Risk Assessment: Do you want to hurt yourself or someone else? Patient reports no desire to harm self or others. Initial Sepsis Screen: Does the patient meet any 2 criteria? No. Patient's initial sepsis screen is negative. Does the patient have a suspected source of infection? No. Patient's initial sepsis screen is negative. Care prior to arrival: Glucose check: 147. 11:52 Method Of Arrival: EMS: [facility] ph 11:52 Acuity: DAVID 3 ph Historical: - Allergies: 11:56 No Known Allergies; ph - Home Meds: 11:56 lisinopril 20 mg Oral tab [Active]; metformin 1,000 mg Oral tr24 2 tabs once daily ph [Active]; Plavix 75 mg Oral tab 1 tab once daily [Active]; - PMHx: 11:56 CVA; Diabetes - NIDDM; Hypertension; NPO, aspiration; ph - PSHx: 11:56 ovaries removed; ph - Immunization history:: Adult Immunizations unknown. - Social history:: Smoking status: Patient/guardian denies using tobacco. - Ebola Screening: : No symptoms or risks identified at this time. Screenin:17 Abuse screen: Denies threats or abuse. Denies injuries from another. Nutritional ph screening: No deficits noted. Tuberculosis screening: No symptoms or risk factors identified. Fall Risk Fall in past 12 months (25 points). Secondary diagnosis (15 points) impaired mobility, CVA, No IV (0 pts). Ambulatory Aid- None/Bed Rest/Nurse Assist (0 pts). Gait- Impaired (20 pts.). Mental Status- Oriented to own ability (0 pts). Total Cohen Fall Scale indicates High Risk Score (45 or more points). Fall prevention measures have been instituted. Side Rails Up X 2 Frequent Obs/Assessments Occuring Family Present and informed to notify staff if the need to leave the bedside As available patient and family educated on Fall Prevention Program and Strategies. Assessment: 12:15 General: Appears in no apparent distress. uncomfortable, Behavior is calm, cooperative. ph Pain: Complains of pain in right hip,left knee and left barreto. Neuro: Level of Consciousness is awake, alert, obeys commands, Oriented to person, place, time, situation, Speech with expressive aphasia noted, pt hx of CVA. Cardiovascular: Capillary refill < 3 seconds in bilateral fingers Patient's skin is warm and dry. Respiratory: Airway is patent Respiratory effort is even, unlabored. Derm: Skin is intact, is healthy with good turgor, Skin is pink, warm \\T\\ dry. Musculoskeletal: Circulation, motion, and sensation intact. Range of motion: limited in left knee. 13:30 Reassessment: Patient appears in no apparent distress at this time. Patient and/or ph family updated on plan of care and expected duration. Pain level reassessed. Patient is alert, oriented x 3, equal unlabored respirations, skin warm/dry/pink. 14:30 Reassessment: Patient appears in no apparent distress at this time. Patient and/or ph family updated on plan of care and expected duration. Pain level reassessed. Patient is alert, oriented x 3, equal unlabored respirations, skin warm/dry/pink. Pt awaiting d/c, family at bedside. Vital Signs: 11:55 BP 182 / 113; Pulse 92; Resp 20; Temp 97.7; Pulse Ox 95% on R/A; Weight 65.77 kg; ph 13:00 BP 176 / 87; Pulse 84; Resp 18; Pulse Ox 95% on R/A; ph 14:00 BP 168 / 89; Pulse 86; Resp 16; Temp 97.5; Pulse Ox 95% on R/A; ph ED Course: 11:51 Patient arrived in ED. ph 11:52 Mike Branham NP is PHCP. pm1 11:52 Francisco J Wolfe MD is Attending Physician. pm1 11:55 Triage completed. ph 11:57 Arm band placed on. ph 12:[address] In Process Unspecified. EDMS 12:15 Elisa Powell, RN is Primary Nurse. ph 12:17 Patient has correct armband on for positive identification. Bed in low position. Call ph light in reach. Side rails up X 1. Pulse ox on. NIBP on. 12:58 Knee Left 2 View In Process Unspecified. EDMS 15:06 No provider procedures requiring assistance completed. Patient did not have IV access hb during this emergency room visit. Administered Medications: 13:55 Drug: [place] (7.5 mg-325 mg) 1 tabs Route: PO; ph 14:15 Follow up: Response: No adverse reaction ph Outcome: 13:27 Discharge ordered by MD. pm1 15:06 Discharged to home via wheelchair, with family. hb 15:06 Condition: stable 15:06 Discharge instructions given to patient, Instructed on discharge instructions, follow up and referral plans. medication usage, Demonstrated understanding of instructions, follow-up care, medications, Prescriptions given X 1. 15:06 Patient left the ED. hb Signatures: Dispatcher [employer] EDSC Elisa Powell, RN RN Mike Branham, JOSE TRAINING CONSULTANT pm1 Carlita Santos, POLLY RN hb
--- NOTE | 2018-06-03 13:28 | EDPHYS ---
Physician Documentation [facility] Name: Juana Navarro Age: 58 yrs Sex: Female : 1960 Arrival Date: 06/03/2018 Time: 11:51 Bed 13 Private MD: ED Physician Francisco J Wolfe HPI: 06/03 12:30 This 58 yrs old Female presents to ER via EMS with complaints of Bilateral Hip pm1 Pain, Leg Pain. 12:30 The patient or guardian reports pain. that occurred at home, sustained from a fall, pm1 while being transferred, There is no obvious deformity, The patient is not able to ambulate. Patient is not able to stand or ambulate since CVA. The complaints affect the left hip and right hip and left knee. Onset: The symptoms/episode began/occurred 2 day(s) ago. Modifying factors: The symptoms are alleviated by nothing, the symptoms are aggravated by position changes. Associated signs and symptoms: Loss of consciousness: the patient experienced no loss of consciousness, Pertinent negatives: chest pain, fever, nausea, shortness of breath, vomiting. Patient was being transferred from bed to chair but her elderly and she was accidentally dropped on the floor 2 days ago. Patient complaining of bilateral hip and left knee pain. No headache, head injury, neck pain, LOC. Patient has not been able to walk or bear weight since CVA. Historical: - Allergies: 11:56 No Known Allergies; ph - Home Meds: 11:56 lisinopril 20 mg Oral tab [Active]; metformin 1,000 mg Oral tr24 2 tabs once daily ph [Active]; Plavix 75 mg Oral tab 1 tab once daily [Active]; - PMHx: 11:56 CVA; Diabetes - NIDDM; Hypertension; NPO, aspiration; ph - PSHx: 11:56 ovaries removed; ph - Immunization history:: Adult Immunizations unknown. - Social history:: Smoking status: Patient/guardian denies using tobacco. - Ebola Screening: : No symptoms or risks identified at this time. ROS: 12:30 Constitutional: Negative for fever, chills, and weight loss, Eyes: Negative for injury, pm1 pain, redness, and discharge, ENT: Negative for injury, pain, and discharge, Neck: Negative for injury, pain, and swelling, Cardiovascular: Negative for chest pain, palpitations, and edema, Respiratory: Negative for shortness of breath, cough, wheezing, and pleuritic chest pain, Abdomen/GI: Negative for abdominal pain, nausea, vomiting, diarrhea, and constipation, Back: Negative for injury and pain. 12:30 Skin: Negative for injury, rash, and discoloration, Neuro: Negative for headache, weakness, numbness, tingling, and seizure. 12:30 MS/extremity: Positive for pain, of the right hip and left hip and left knee. Exam: 12:30 Constitutional: This is a well developed, well nourished patient who is awake, alert, pm1 and in no acute distress. Head/Face: Normocephalic, atraumatic. Eyes: Pupils equal round and reactive to light, extra-ocular motions intact. Lids and lashes normal. Conjunctiva and sclera are non-icteric and not injected. Cornea within normal limits. Periorbital areas with no swelling, redness, or edema. ENT: Nares patent. No nasal discharge, no septal abnormalities noted. Tympanic membranes are normal and external auditory canals are clear. Oropharynx with no redness, swelling, or masses, exudates, or evidence of obstruction, uvula midline. Mucous membranes moist. Neck: Trachea midline, no thyromegaly or masses palpated, and no cervical lymphadenopathy. Supple, full range of motion without nuchal rigidity, or vertebral point tenderness. No Meningismus. Chest/axilla: Normal chest wall appearance and motion. Nontender with no deformity. No lesions are appreciated. Cardiovascular: Regular rate and rhythm with a normal S1 and S2. No gallops, murmurs, or rubs. No pulse deficits. Respiratory: Lungs have equal breath sounds bilaterally, clear to auscultation and percussion. No rales, rhonchi or wheezes noted. No increased work of breathing, no retractions or nasal flaring. Abdomen/GI: Soft, non-tender, with normal bowel sounds. No distension or tympany. No guarding or rebound. No evidence of tenderness throughout. Back: No spinal tenderness. No costovertebral tenderness. Full range of motion. Skin: Warm, dry with normal turgor. Normal color with no rashes, no lesions, and no evidence of cellulitis. 12:30 Musculoskeletal/extremity: Extremities: grossly normal except: noted in the left knee: tenderness, noted in the right hip: tenderness, noted in the left hip: tenderness. 12:30 Neuro: patient with difficulty speaking post CVA. history and physical assisted by presence of daughter. Vital Signs: 11:55 BP 182 / 113; Pulse 92; Resp 20; Temp 97.7; Pulse Ox 95% on R/A; Weight 65.77 kg; ph 13:00 BP 176 / 87; Pulse 84; Resp 18; Pulse Ox 95% on R/A; ph 14:00 BP 168 / 89; Pulse 86; Resp 16; Temp 97.5; Pulse Ox 95% on R/A; ph MDM: 11:52 Patient medically screened. pm1 13:27 Data reviewed: vital signs. Data interpreted: Pulse oximetry: on room air is 95 %. pm1 Interpretation: normal. Counseling: I had a detailed discussion with the patient and/or guardian regarding: the historical points, exam findings, and any diagnostic results supporting the discharge/admit diagnosis, radiology results, the need for outpatient follow up, to return to the emergency department if symptoms worsen or persist or if there are any questions or concerns that arise at home. 06/03 11:53 Order name: Pelvis Wo Cont CT; Complete Time: 12:37 pm1 06/03 12:35 Order name: Knee Left 2 View; Complete Time: 13:26 EDMS Administered Medications: 13:55 Drug: [place] (7.5 mg-325 mg) 1 tabs Route: PO; ph 14:15 Follow up: Response: No adverse reaction ph Disposition: 17:36 Co-signature as Attending Physician, Francisco J Wolfe MD. rn Disposition: 06/03/18 13:27 Discharged to Home. Impression: Contusion of hip, Pain in left knee. - Condition is Stable. - Discharge Instructions: Contusion, Fall Prevention in the Home, Knee Pain, Hip Pain. - Prescriptions for acetaminophen- codeine 120-12 mg/5 mL Oral Suspension - take 10 milliliters by ORAL route every 6 hours As needed; 100 milliliter. - Medication Reconciliation Form, Thank You Letter, Prescription Opioid Use form. - Follow up: Emergency Department; When: As needed; Reason: Worsening of condition. Follow up: Private Physician; When: 2 - 3 days; Reason: Recheck today's complaints, Continuance of care, Re-evaluation by your physician. - Problem is new. - Symptoms have improved. Signatures: Dispatcher [employer] [facility] Francisco J Wolfe MD MD rn Elisa Powell RN RN ph Mike Branham, SATELLITE TV INSTALLER SATELLITE TV INSTALLER pm1 Carlita Santos RN RN Corrections: (The following items were deleted from the chart) 12:35 11:54 Knee Left 3 View+RAD.RAD.BRZ ordered. [facility] 15:06 13:27 06/03/2018 13:27 Discharged to Home. Impression: Contusion of hip; Pain in left hb knee. Condition is Stable. Forms are Medication Reconciliation Form, Thank You Letter, Antibiotic Education, Prescription Opioid Use. Follow up: Emergency Department; When: As needed; Reason: Worsening of condition. Follow up: Private Physician; When: 2 - 3 days; Reason: Recheck today's complaints, Continuance of care, Re-evaluation by your physician. Problem is new. Symptoms have improved. pm1
[2018-06-03] MEDS ORDERED: HYDROCODONE/APAP 7.5/325 MG TAB ONE (13:57)
[2018-06-03 15:24] VITALS: BP 182/113; TEMP 97.7; O2SAT 95
== END 2018-06-03 15:06 | disposition home or self-care (01) ==
LOC: ER 11:40
DX: S70.00XA Contusion of unspecified hip, initial encounter (principal); W19.XXXA Unspecified fall, initial encounter; Y93.89 Activity, other specified; Y92.009 Unspecified place in unspecified non-institutional (private) residence as the place of occurrence of the external cause; Z79.01 Long term (current) use of anticoagulants; I10 Essential (primary) hypertension; E11.9 Type 2 diabetes mellitus without complications
CPT/HCPCS: 72192; 99284

== ENCOUNTER 2018-11-12 09:37 | Inpatient (IN) | payer MEDICAID ==
--- NOTE | 2018-11-12 10:43 | ER ---
Nurse's Notes [facility] Name: Juana Navarro Age: 58 yrs Sex: Female : 1960 Arrival Date: 11/12/2018 Time: 09:42 Bed 4 Private MD: Diagnosis: Cellulitis of left toe-Great toe;Diabetes mellitus due to underlying condition Presentation: 11/12 09:43 Presenting complaint: EMS states: She was at the Clinic in [place] to have her right jl7 big toe wound evaluated and the doctors there called due to hypertensive crises, her BP was 210/120. Transition of care: [facility]. Onset of symptoms was November 12, 2018. Risk Assessment: Do you want to hurt yourself or someone else? Patient reports no desire to harm self or others. Initial Sepsis Screen: Does the patient meet any 2 criteria? No. Patient's initial sepsis screen is negative. Does the patient have a suspected source of infection? No. Patient's initial sepsis screen is negative. Care prior to arrival: IV initiated. 20 GA, in the left forearm, Glucose check: 134. 09:43 Method Of Arrival: EMS: [place] [facility] jl7 09:43 Acuity: DAVID 3 jl7 Triage Assessment: 09:47 General: Appears in no apparent distress. uncomfortable, Behavior is calm, cooperative, jl7 appropriate for age. Pain: Complains of pain in right first toe Pain does not radiate. EENT: No signs and/or symptoms were reported regarding the EENT system. 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 Cardiovascular: Patient's skin is warm and dry. Respiratory: Airway is patent Respiratory effort is even, unlabored, Respiratory pattern is regular, symmetrical, Denies shortness of breath. GI: PEG tube Site clean. : No signs and/or symptoms were reported regarding the genitourinary system. Derm: Skin is pink, warm \T\ dry. Musculoskeletal: No signs and/or symptoms reported regarding the musculoskeletal system. Historical: - Allergies: :47 No Known Allergies; jl7 - Home Meds: :47 lisinopril 20 mg Oral tab [Active]; metformin 1,000 mg Oral tr24 2 tabs once daily jl7 [Active]; Plavix 75 mg Oral tab 1 tab once daily [Active]; - PMHx: 09:47 CVA; Diabetes - NIDDM; Hypertension; NPO, aspiration; G Tube; jl7 - PSHx: 09:47 ovaries removed; jl7 - Immunization history:: Adult Immunizations unknown. - Social history:: Smoking status: Patient/guardian denies using tobacco. - Ebola Screening: : No symptoms or risks identified at this time. Screenin:00 Abuse screen: Denies threats or abuse. Denies injuries from another. Nutritional jl7 screening: No deficits noted. Tuberculosis screening: No symptoms or risk factors identified. Fall Risk No fall in past 12 months (0 pts). Secondary diagnosis (15 points) CVA, IV access (20 points). Ambulatory Aid- None/Bed Rest/Nurse Assist (0 pts). Gait- Normal/Bed Rest/Wheelchair (0 pts) Mental Status- Oriented to own ability (0 pts). Total Cohen Fall Scale indicates Low Risk Score (25-44 pts). Fall prevention measures have been instituted. Side Rails Up X 2 Placed close to Nursing Station Frequent Obs/Assesments occuring Family Present and informed to notify staff if they need to leave bedside As available Patient and Family Educated on Fall Prevention Program and strategies. Assessment: 10:00 General: See triage assessment. jl7 11:15 Reassessment: placed gauze with antibiotic ointment to right first toe wound. jl7 12:00 Reassessment: Patient appears in no apparent distress at this time. Patient and/or jl7 family updated on plan of care and expected duration. Pain level reassessed. Patient is alert, oriented x 3, equal unlabored respirations, skin warm/dry/pink. 13:30 Reassessment: Redness noted to pt's eyes, nose and cheeks, Dr. Jeronimo notified, VO to jl7 administer 40 mg Solu-Medrol IVP and 20 mg Pepcid IVP. Pt's family inquiring about feeding the pt and confirmed pt is normally given Glucerna 1.5; dietary notified and will bring Glucerna 1.5 to the ER at this time. 14:09 Reassessment: Pt being transferred to MRI via stretcher by dialysis technicianDoug, he will 7 transport pt to room 219 after MRI is complete. Vital Signs: 09:47 BP 177 / 92; Pulse 90; Resp 16 S; Pulse Ox 95% on R/A; jl7 11:38 BP 178 / 87; Pulse 81; Resp 22 S; Pulse Ox 100% on R/A; jl7 12:30 BP 137 / 48; Pulse 85; Resp 16 S; Pulse Ox 100% on R/A; jl7 13:50 BP 158 / 99; Pulse 82; Resp 16 S; Temp 97.9(O); Pulse Ox 100% on R/A; jl7 ED Course: 09:42 Patient arrived in ED. hj 09:43 Kandy Beck, POLLY is Primary Nurse. jl7 09:45 Triage completed. jl7 09:46 EKG done, by office technologist. dt2 09:47 Arm band placed on right wrist. jl7 09:51 Missed attempt(s): 24 gauge in left hand. IV discontinued, intact, bleeding controlled, pc1 No redness/swelling at site. Pressure dressing applied. 09:53 Billy Green MD is Attending Physician. kdr 10:00 Inserted saline lock: 24 gauge in right wrist, using aseptic technique. Blood collected.dh3 10:00 Patient has correct armband on for positive identification. Bed in low position. Call jl7 light in reach. Side rails up X2. sales expert home theater on. Pulse ox on. NIBP on. Warm blanket given. 10:41 González Jeronimo DO is Hospitalizing Provider. kdr 11:00 Inserted saline lock: 22 gauge in left wrist, using aseptic technique. Blood collected. jl7 11:12 Chest Single View XRAY In Process Unspecified. EDMS 11:12 Foot Left 3 View XRAY In Process Unspecified. EDMS 14:09 No provider procedures requiring assistance completed. Patient admitted, IV remains in jl7 place. intact, No redness/swelling at site. Administered Medications: 10:29 Not Given (Duplicate Order): Rocephin - (cefTRIAXone) 1 grams IVPB once over 30 mins; jl7 (mix in 50 mL NS) 11:00 Drug: Rocephin 1 grams Route: IV; Rate: calculated rate; Site: left wrist; jl7 11:03 Follow up: Response: No adverse reaction; IV Status: Completed infusion jl7 11:10 Drug: vancoMYCIN 1 grams Route: IVPB; Infused Over: 2 hrs; Site: right wrist; jl7 13:10 Follow up: Response: No adverse reaction; IV Status: Completed infusion jl7 13:45 Drug: SOLU-Medrol 40 mg Route: IVP; Site: right wrist; jl7 14:12 Follow up: Response: No adverse reaction jl7 13:49 Drug: Pepcid 20 mg Route: IVP; Site: right wrist; jl7 14:11 Follow up: Response: No adverse reaction jl7 Outcome: 10:43 Decision to Hospitalize by Provider. kdr 14:07 Admitted to Med/surg accompanied by tech, family with patient, via stretcher, room 219, jl7 with chart, Report called to POLLY Lehman 14:07 Condition: stable 14:07 Discharge instructions given to patient, family, Instructed on the need for admit, Demonstrated understanding of instructions. 14:11 Patient left the ED. jl7 Signatures: Dispatcher [employer] EDMS Billy Green MD MD kdr Joaquin, Henry, RN RN hj Leal, Jahala, RN RN jl7 Ericka Drummond 3 [place] 2 Mike Caraballo pc1
--- NOTE | 2018-11-12 10:43 | EDPHYS ---
Physician Documentation [facility] Name: Juana Navarro Age: 58 yrs Sex: Female : 1960 Arrival Date: 11/12/2018 Time: 09:42 Bed 4 Private MD: ED Physician Billy Green HPI: 11/12 10:27 This 58 yrs old Female presents to ER via EMS with complaints of High Blood kdr Pressure. 10:27 EMS was called to bring the patient to the ED for cellulitis to the left great toe. kdr When EMS arrived, they noted that she was very hypertensive. 10:30 BP was noted to be 210/120 at the [facility]3]. She has had a prior CVA but kdr currently no change in her mental status or other complaint related to her HTN and toe wound. Onset: The symptoms/episode began/occurred The patient has been out of her meds for about a week. Severity of symptoms: At their worst the symptoms were mild in the emergency department the symptoms. 10:37 The patient has not experienced similar symptoms in the past. The patient has not kdr recently seen a physician, Was at the [facility]3] [employer]. Historical: - Allergies: 09:47 No Known Allergies; jl7 - Home Meds: 09:47 lisinopril 20 mg Oral tab [Active]; metformin 1,000 mg Oral tr24 2 tabs once daily jl7 [Active]; Plavix 75 mg Oral tab 1 tab once daily [Active]; - PMHx: 09:47 CVA; Diabetes - NIDDM; Hypertension; NPO, aspiration; G Tube; jl7 - PSHx: 09:47 ovaries removed; jl7 - Immunization history:: Adult Immunizations unknown. - Social history:: Smoking status: Patient/guardian denies using tobacco. - Ebola Screening: : No symptoms or risks identified at this time. ROS: 10:37 Constitutional: Negative for fever, chills, and weight loss, Eyes: Negative for injury, kdr pain, redness, and discharge, ENT: Negative for injury, pain, and discharge, Neck: Negative for injury, pain, and swelling, Cardiovascular: Negative for chest pain, palpitations, and edema, Abdomen/GI: Negative for abdominal pain, nausea, vomiting, diarrhea, and constipation, Back: Negative for injury and pain, : Negative for injury, bleeding, discharge, and swelling, MS/Extremity: Negative for injury and deformity, Neuro: Negative for headache, weakness, numbness, tingling, and seizure activity. Psych: Negative for depression, anxiety, suicide ideation, homicidal ideation, and hallucinations, Allergy/Immunology: Negative for hives, rash, and allergies. 10:37 Respiratory: Positive for cough, with no reported sputum, Negative for dyspnea on exertion, hemoptysis, orthopnea, pleurisy. 10:37 Skin: Positive for cellulitis, diaphoresis, discoloration, erythema, swelling, Negative for abrasions, abscesses, avulsion, burn, diaphoresis, ecchymosis, hematoma. Exam: 10:37 Constitutional: This is a well developed, well nourished patient who is awake, alert, kdr and in no acute distress. Head/Face: Normocephalic, atraumatic. Eyes: Pupils equal round and reactive to light, extra-ocular motions intact. Lids and lashes normal. Conjunctiva and sclera are non-icteric and not injected. Cornea within normal limits. Periorbital areas with no swelling, redness, or edema. Neck: Trachea midline, no thyromegaly or masses palpated, and no cervical lymphadenopathy. Supple, full range of motion without nuchal rigidity, or vertebral point tenderness. No Meningismus. Chest/axilla: Normal chest wall appearance and motion. Nontender with no deformity. No lesions are appreciated. Cardiovascular: Regular rate and rhythm with a normal S1 and S2. No gallops, murmurs, or rubs. Normal PMI, no JVD. No pulse deficits. Respiratory: Lungs have equal breath sounds bilaterally, clear to auscultation and percussion. No rales, rhonchi or wheezes noted. No increased work of breathing, no retractions or nasal flaring. Abdomen/GI: Soft, non-tender, with normal bowel sounds. No distension or tympany. No guarding or rebound. No evidence of tenderness throughout. Back: No spinal tenderness. No costovertebral tenderness. Full range of motion. Skin: Warm, dry with normal turgor. Normal color with no rashes, no lesions, and no evidence of cellulitis. MS/ Extremity: Pulses equal, no cyanosis. Neurovascular intact. Full, normal range of motion. 10:37 Abdomen/GI: Inspection: abdomen appears normal, G-tube LUQ NAD. Vital Signs: 09:47 BP 177 / 92; Pulse 90; Resp 16 S; Pulse Ox 95% on R/A; jl7 11:38 BP 178 / 87; Pulse 81; Resp 22 S; Pulse Ox 100% on R/A; jl7 12:30 BP 137 / 48; Pulse 85; Resp 16 S; Pulse Ox 100% on R/A; jl7 13:50 BP 158 / 99; Pulse 82; Resp 16 S; Temp 97.9(O); Pulse Ox 100% on R/A; jl7 MDM: 10:37 Data reviewed: vital signs, nurses notes, lab test result(s), radiologic studies. kdr Counseling: I had a detailed discussion with the patient and/or guardian regarding: the historical points, exam findings, and any diagnostic results supporting the discharge/admit diagnosis, lab results, radiology results, the need for further work-up and treatment in the hospital. 10:43 Patient medically screened. kdr 11/12 10:23 Order name: Basic Metabolic Panel kdr 11/12 10:23 Order name: Blood Culture Adult (2) kdr 11/12 10:23 Order name: CBC with Diff kdr 11/12 10:23 Order name: Ckmb kdr 11/12 10:23 Order name: CPK kdr / 10:23 Order name: Lactate kdr 11/12 10:23 Order name: LFT's kdr 11/12 10:23 Order name: Lipase kdr 03/ 10:23 Order name: Procalcitonin kdr / 10:23 Order name: Protime (+inr) kdr 11/12 10:23 Order name: Ptt, Activated kdr 11/12 10:23 Order name: Troponin (emerg Dept Use Only) kdr 11/12 10:23 Order name: Urine Microscopic Only kdr 11/12 10:23 Order name: Chest Single View XRAY kdr 11/12 10:23 Order name: Accucheck; Complete Time: 11:58 kdr 11/12 10:23 Order name: Cardiac monitoring; Complete Time: 10:23 kdr 11/12 10:23 Order name: EKG - Nurse/Tech; Complete Time: 10:23 kdr 11/12 10:23 Order name: IV Saline Lock - Large Bore; Complete Time: 11:58 kdr 11/12 10:23 Order name: Labs collected and sent; Complete Time: 11:58 kdr 11/12 10:23 Order name: O2 Per Protocol; Complete Time: 10:24 kdr 11/12 10:23 Order name: O2 Sat Monitoring; Complete Time: 10:24 kdr 11/12 10:24 Order name: Foot Left 3 View XRAY kdr Administered Medications: 10:29 Not Given (Duplicate Order): Rocephin - (cefTRIAXone) 1 grams IVPB once over 30 mins; jl7 (mix in 50 mL NS) 11:00 Drug: Rocephin 1 grams Route: IV; Rate: calculated rate; Site: left wrist; jl7 11:03 Follow up: Response: No adverse reaction; IV Status: Completed infusion jl7 11:10 Drug: vancoMYCIN 1 grams Route: IVPB; Infused Over: 2 hrs; Site: right wrist; jl7 13:10 Follow up: Response: No adverse reaction; IV Status: Completed infusion jl7 13:45 Drug: SOLU-Medrol 40 mg Route: IVP; Site: right wrist; jl7 14:12 Follow up: Response: No adverse reaction jl7 13:49 Drug: Pepcid 20 mg Route: IVP; Site: right wrist; jl7 14:11 Follow up: Response: No adverse reaction jl7 Disposition: 11/12/18 10:43 Hospitalization ordered by González Jeronimo for Inpatient Admission. Preliminary diagnosis are Cellulitis of left toe - Great toe, Diabetes mellitus due to underlying condition. - Bed requested for Telemetry/MedSurg (Inpatient). - Status is Inpatient Admission. jl7 - Condition is Fair. - Problem is new. - Symptoms are unchanged. UTI on Admission? No Signatures: Dispatcher [employer] EDMS Billy Green MD MD kdr Kandy Beck RN RN jl7 Yasmine Ji RN RN df Corrections: (The following items were deleted from the chart) 13:42 10:43 Hospitalization Ordered by González Jeronimo DO for Inpatient Admission. Preliminary df diagnosis is Cellulitis of left toe - Great toe; Diabetes mellitus due to underlying condition. Bed requested for Telemetry/MedSurg (Inpatient). Status is Inpatient Admission. Condition is Fair. Problem is new. Symptoms are unchanged. UTI on Admission? No. kdr 14:11 13:42 11/12/2018 10:43 Hospitalization Ordered by González Jeronimo DO for Inpatient jl7 Admission. Preliminary diagnosis is Cellulitis of left toe - Great toe; Diabetes mellitus due to underlying condition. Bed requested for Telemetry/MedSurg (Inpatient). Status is Inpatient Admission. Condition is Fair. Problem is new. Symptoms are unchanged. UTI on Admission? No. df
[2018-11-12] MEDS ORDERED: VANCOMYCIN/NS 1 gm 1 GM/250 ML BAG IV ONE (10:45)
[2018-11-12] MEDS ORDERED: CEFTRIAXONE/SWI 1gm 1 GM/10 ML SYR ONE (10:46)
[2018-11-12 11:07] LABS: ALT/SGPT 21 U/L (12-78); AST/SGOT 20 U/L (15-37); Albumin 3.6 g/dL (3.4-5.0); Alkaline Phosphatase 104 U/L (45-117); BUN Blood Urea Nitrogen 19 mg/dL (7-18); Bicarbonate 30 mmol/L (21-32); Bilirubin Direct 0.1 mg/dL (0-0.2); Bilirubin Total 0.7 mg/dL (0.2-1.0); CKMB Creatine Kinase MB < 1.0 ng/mL (0.3-3.6); Creatine Phosphokinase 47 U/L (26-192); Glucose Level 135 mg/dL (74-106); Lipase 62 U/L (73-393); Potassium 4.3 mmol/L (3.5-5.1); Protein, Total 8.8 g/dL (6.4-8.2); Sodium Level 139 mmol/L (136-145); Troponin (Emerg Dept Use Only) < 0.02 ng/mL (0.0-0.045)
[2018-11-12 11:12] LABS: Absolute Monocytes 0.6 K/uL (0.1-1.3); Absolute Neutrophil 6.7 K/uL (1.8-8.0); Basophils % 0.6 % (0-1.3); Eosinophils % 1.8 % (0-4.4); Hematocrit 49.3 % (36.0-45.0); Lymphocytes % 21.3 % (15.3-44.8); MPV 10.1 fL (7.6-11.3); RBC Red Blood Cell Count 5.62 M/uL (3.86-4.86)
--- NOTE | 2018-11-12 11:20 | RAD REPORT ---
EXAM DESCRIPTION: Michel Single View11/12/2018 11:12 am CLINICAL HISTORY: Hypertension COMPARISON: January 2018 FINDINGS: The lungs appear clear of acute infiltrate. The heart is normal size IMPRESSION: No acute abnormalities displayed
--- NOTE | 2018-11-12 11:23 | RAD REPORT ---
EXAM DESCRIPTION: RAD - Foot Left 3 View - 11/12/2018 11:12 am CLINICAL HISTORY: Left Foot pain FINDINGS: No fracture or dislocation is seen. The bones are osteoporotic. Lucency is present along the medial aspect of first proximal phalanx. This may indicate osteomyelitis . Vascular calcifications seen. Prominent calcaneal spur
--- NOTE | 2018-11-12 13:05 | EKG ---
Test Date: 2018-11-12 Test Time: 09:39:34 Rigging Foreman: [place] MEASUREMENT RESULTS: Intervals: Rate: 85 WI: 140 QRSD: 82 QT: 396 QTc: 471 [place]: P: 72 WI: 140 QRS: 196 T: 93 INTERPRETIVE STATEMENTS: Normal sinus rhythm Right superior axis deviation Nonspecific ST abnormality Abnormal ECG Compared to ECG 01/30/2018 20:45:12 Right superior axis now present ST (T wave) deviation now present Electronically Signed On 11-12-18 13:03:48 INSTRUMENT LENS INSPECTOR by Waqar Stark
--- NOTE | 2018-11-12 13:12 | P.HP ---
Certification for Inpatient Patient admitted to: Inpatient With expected LOS: >2 Midnights Patient will require the following post-hospital care: Other (Long-term acute care facility verses skilled placement) Practitioner: I am a practitioner with admitting privileges, knowledge of patient current condition, hospital course, and medical plan of care. Services: Services provided to patient in accordance with Admission requirements found in Title 42 Section 412.3 of the Code of Federal Regulations Patient History Date of Service: 11/12/18 Primary Care Provider: [facility]([place], [place]) Reason for admission: Elevated blood pressure and infection to the left great toe History of Present Illness: 58-year-old female with multiple medical problems including hypertension, diabetes, history of CVA with residual deficit-aphasia with noted dysphagia now with PEG tube. Patient presented to her PCP for refills on her medication and for infection to her left great toe. Patient had ran out of her blood pressure medication. Upon evaluation at the clinic her blood pressure was elevated. She is found to have left great toe erythema with a scab. She was sent to the ER for further evaluation. Family reports no fever, pain. Apparently erythema started about 3 days ago. It has not improved. In the ER patient evaluated. White count 9.5, hemoglobin 15.5. Sodium 139, potassium 4.3, BUN of 19, creatinine 0.76 with a GFR 78. Glucose 135. Pro calcitonin unremarkable. Troponin unremarkable. Chest x-ray unremarkable. X- ray shows possible osteomyelitis of the left great toe. Patient was started on IV antibiotic therapy. Patient admitted for further evaluation and treatment. When I saw the patient ER, she appeared comfortable. Patient with elevated blood pressure. Family at bedside. Allergies No Known Allergies Allergy (Verified 09/05/16 23:23) Home medications list reviewed: Yes Home Medications: Lisinopril 20 mg PO DAILY 09/06/16 Metformin HCl 1,000 mg PO BID 09/06/16 Atorvastatin Calcium [Lipitor*] 20 mg PO BEDTIME #30 tab 09/09/16 Metoprolol Tartrate [Lopressor*] 50 mg PO BID #60 tab 09/09/16 Glucerna 1.5 Vikas 237 ml FT QID #90 bot 02/10/18 Pantoprazole Sodium [Protonix] 40 mg PO DAILY #30 tablet. 02/10/18 levoFLOXacin [Levaquin] 500 mg PO DAILY #4 tab 02/10/18 - Past Medical/Surgical History Diabetic: Yes -: History CVA with residual aphasia -: Diabetes mellitus type 2 -: HTN -: Hyperlipidemia -: Diabetic neuropathy -: History of dysphagia now with PEG tube -: Hysterectomy -: PEG tube placement Psychosocial/ Personal History: Patient lives at home. She has several children. She is . - Family History Mother -: Stroke Father -: Heart disease - Social History Smoking Status: Never smoker Alcohol use: No CD- Drugs: No Caffeine use: No Place of Residence: Home Review of Systems General: As per HPI Eyes: Unremarkable ENT: Unremarkable Respiratory: Unremarkable Cardiovascular: Unremarkable Gastrointestinal: Unremarkable Genitourinary: Unremarkable Musculoskeletal: Unremarkable Integumentary: As per HPI Neurological: As per HPI Lymphatics: Unremarkable Physical Examination - Physical Exam General: Alert, Other (Patient with residual aphasia) HEENT: Atraumatic, Normocephalic, PERRLA, Mucous membr. moist/pink Neck: Supple Respiratory: Clear to auscultation bilaterally, Normal air movement Cardiovascular: Normal pulses, Regular rate/rhythm Gastrointestinal: Normal bowel sounds, Soft and benign, Non-distended, No tenderness, No masses, No rebound, No guarding Musculoskeletal: No tenderness, No warmth Integumentary: Other (Erythema to the left great toe. Small scab to the anterior portion of the proximal left great toe.) Neurological: Abnormal speech (Patient with residual aphasia) - Studies Laboratory Data (last 24 hrs) 11/12/18 10:00: PT 11.8, INR 1.00, APTT 34.0 11/12/18 10:00: WBC 9.5, Hgb 16.5 H, Hct 49.3 H, Plt Count 249 11/12/18 10:00: Sodium 139, Potassium 4.3, BUN 19 H, Creatinine 0.76, Glucose 135 H, Total Bilirubin 0.7, AST 20, ALT 21, Alkaline Phosphatase 104, Lipase 62 L Assessment and Plan - Plan Impression: Left great toe cellulitis likely osteomyelitis Hypertension, uncontrolled with poor compliance Diabetes mellitus type 2 Hyperlipidemia History of CVA with residual aphasia History of dysphagia now with PEG tube Diabetic neuropathy Plan: Left great toe cellulitis likely osteomyelitis: Patient admitted for IV antibiotic therapy. Will order MRI to confirm osteomyelitis. Surgery consulted. If patient with osteomyelitis patient will require IV antibiotic therapy for 6 weeks. Patient would benefit with long-term acute care facility placement or skilled placement. Will check with bilingual social worker to see what options are available. Will consult physical and occupational therapy in preparation for placement. Hypertension, uncontrolled with poor compliance: Restart home medication including lisinopril and metoprolol. Will address compliance with family who take care the patient. Diabetes mellitus type 2: Will start sliding scale. Will check A1c. Hyperlipidemia: Restart medication. Will check fasting lipid panel. History of CVA with residual aphasia: Will provide DVT prophylaxis. Will continue with Plavix. Patient may benefit with physical therapy and occupational therapy. History of dysphagia now with PEG tube: Will continue with tube feeds. Dietary consulted to help in this process. Diabetic neuropathy: Will monitor closely. Discharge Plan: Other (Long-term acute care facility placement verses skilled) Plan to discharge in: Greater than 2 days - Advance Directives Does patient have a Living Will: No Does patient have a Durable POA for Healthcare: No - Code Status/Comfort Care Code Status Assessed: Yes (Advanced directives addressed with family. Patient full code.) Time Spent Managing Pts Care (In Minutes): 55
[2018-11-12] MEDS ORDERED: FAMOTIDINE 20 MG/2 ML VIAL IV ONE (13:51)
[2018-11-12] MEDS ORDERED: METHYLPREDNISOLONE 40 MG INJ ONE (13:51)
[2018-11-12] MEDS ORDERED: Levofloxacin500mg IV 500 MG/100 ML BAG IV SCH (14:00)
--- NOTE | 2018-11-12 14:47 | RAD REPORT ---
EXAM DESCRIPTION: RAD - Foot Right 3 View - 11/12/2018 11:12 am CLINICAL HISTORY: Right Foot pain FINDINGS: No fracture or dislocation is seen. The bones are osteoporotic. Lucency is present along the medial aspect of first proximal phalanx. This may indicate osteomyelitis. Vascular calcifications seen. Prominent calcaneal spur
[2018-11-12] MEDS: INSULIN -REGULAR HUMAN 50 UNIT/0.5 ML ML SQ SCH ×3 (15:25→21:00)
[2018-11-12] MEDS ORDERED: HYDROCODONE/APAP 7.5/325 MG TAB FT PRN (15:25)
[2018-11-12] MEDS ORDERED: TRAMADOL HCL 50 MG TAB FT PRN (15:25)
[2018-11-12] MEDS ORDERED: ACETAMINOPHEN 500 MG TAB PO PRN (15:25)
[2018-11-12] MEDS ORDERED: ONDANSETRON 4 MG/2 ML VIAL IV PRN (15:25)
[2018-11-12] MEDS ORDERED: D50W 25 GM/50 ML SYRINGE IV PRN (15:42)
[2018-11-12] MEDS ORDERED: GLUCAGON 1 MG/VIAL IM PRN (15:42)
--- NOTE | 2018-11-12 16:04 | RAD REPORT ---
EXAM DESCRIPTION: MRIFoot Right Wo Cont11/12/2018 3:14 pm CLINICAL HISTORY: Left foot pain and swelling COMPARISON: November 12, 2018 x-ray TECHNIQUE: Axial, sagittal and coronal magnetic resonance imaging of the left foot was obtained. FINDINGS: Diffuse edema is present within the subcutaneous tissues. Small area of abnormal signal is present within the distal aspect of the first proximal phalanx which is suspicious for mild osteomyelitis. No fracture or dislocation seen IMPRESSION: Small area of osteomyelitis is suspected within the distal aspect of the first proximal phalanx
[2018-11-12 16:29] VITALS: BMI 26.9
[2018-11-12] MEDS: ENOXAPARIN 40 MG/0.4 ML SQ SCH (17:06)
[2018-11-12 17:08] LABS: Thyroid Stimulating Hormone 0.701 uIU/mL (0.360-3.740)
[2018-11-12] MEDS ORDERED: HYDRALAZINE HCL 20 MG/ML VIAL IV PRN (17:22)
[2018-11-12] MEDS ORDERED: ACETAMINOPHEN 500 MG TAB FT PRN (17:22)
[2018-11-12] MEDS ORDERED: METOPROLOL TAR 25 MG TAB PO SCH (18:00)
[2018-11-12] MEDS: METOPROLOL TAR 50 MG TAB FT SCH (19:26)
[2018-11-12] MEDS: FAMOTIDINE 20 MG/2 ML VIAL IV SCH (20:13)
[2018-11-12] MEDS: ATORVASTATIN 20 MG TAB FT SCH (20:13)
[2018-11-12] MEDS ORDERED: GLUCERNA 1.5 CAL 1,000 ML BOT FT SCH ×2 (21:00→22:00)
[2018-11-13 04:54] LABS: Absolute Lymphocytes (CBC) 1.6 K/uL (0.7-4.9); Absolute Monocytes 0.7 K/uL (0.1-1.3); Basophils % 0.8 % (0-1.3); Eosinophils % 0.1 % (0-4.4); Hematocrit 44.3 % (36.0-45.0); Lymphocytes % 16.7 % (15.3-44.8); MPV 9.8 fL (7.6-11.3); Monocytes % 7.3 % (3.3-12.3); RBC Red Blood Cell Count 5.12 M/uL (3.86-4.86)
[2018-11-13 05:15] LABS: Potassium 4.1 mmol/L (3.5-5.1)
[2018-11-13 05:40] LABS: Urine Appearance CLEAR; Urine Bilirubin NEGATIVE (NEG); Urine Blood NEGATIVE (NEG); Urine Color YELLOW; Urine Glucose NEGATIVE (NEG); Urine Protein TRACE (NEG); Urine Specific Gravity 1.015 (1.005-1.030); Urine Urobilinogen 0.2 mg/dL (0.2-1.0); Urine pH 6.5 (5.0-7.0)
[2018-11-13 05:53] LABS: Urine Microscopic Reflex ORDER UMIC
[2018-11-13 06:04] LABS: Urine Bacteria <20 /HPF (<20); Urine Culture Reflex Order NOT NEEDED; Urine RBC <5 /HPF (NONE SEEN)
[2018-11-13] MEDS: METOPROLOL TAR 50 MG TAB FT SCH ×2 (06:44→17:32)
[2018-11-13] MEDS: INSULIN -REGULAR HUMAN 50 UNIT/0.5 ML ML SQ SCH ×4 (07:30→21:00)
[2018-11-13] MEDS: GLUCERNA SHAKE 237 ML CAN PO SCH ×4 (09:00→21:00)
[2018-11-13] MEDS ORDERED: LISINOPRIL 20 MG TAB FT SCH (09:00)
[2018-11-13] MEDS: CLOPIDOGREL 75 MG TABLET FT SCH (09:00)
[2018-11-13] MEDS: ENOXAPARIN 40 MG/0.4 ML SQ SCH (09:00)
[2018-11-13] MEDS: FAMOTIDINE 20 MG/2 ML VIAL IV SCH ×2 (09:00→21:39)
[2018-11-13] MEDS: LISINOPRIL 20 MG TAB FT SCH ×2 (10:35→21:39)
[2018-11-13] MEDS ORDERED: VANCOMYCIN/NS 1 gm 1 GM/250 ML BAG IV SCH (11:00)
--- NOTE | 2018-11-13 11:07 | P.PN ---
Subjective Date of Service: 11/13/18 Primary Care Provider: [facility]([place], [place]) Chief Complaint: Elevated blood pressure and infection to the right great toe Subjective: Improving, Doing well Physical Examination - Vital Signs Temperature: 97.6 F Blood Pressure: 160/70 Pulse: 60 Respirations: 18 Pulse Ox (%): 94 - Physical Exam General: Alert, Other (Doing well. Patient with residual aphasia) Neck: Supple Respiratory: Clear to auscultation bilaterally, Normal air movement Cardiovascular: Normal pulses, Regular rate/rhythm Gastrointestinal: Normal bowel sounds, Soft and benign, Non-distended, Other ( PEG tube in place) Musculoskeletal: No tenderness, No warmth Integumentary: Other (Right great toe still with erythema. Scab noted.) Neurological: Normal affect - Studies Laboratory Data (last 24 hrs) 11/12/18 10:00: PT 11.8, INR 1.00, APTT 34.0 11/12/18 10:00: WBC 9.5, Hgb 16.5 H, Hct 49.3 H, Plt Count 249 11/12/18 10:00: Sodium 139, Potassium 4.3, BUN 19 H, Creatinine 0.76, Glucose 135 H, Total Bilirubin 0.7, AST 20, ALT 21, Alkaline Phosphatase 104, Lipase 62 L Microbiology Data (last 24 hrs): 11/12/18 10:45 Blood - Blood Anaerobic Blood Culture - Final 11/12/18 11:00 Blood - Blood Anaerobic Blood Culture - Final Medications List Reviewed: Yes Assessment & Plan Discharge Plan: Home Plan to discharge in: 24 Hours Physician Review Additional Text: Impression: Right great toe cellulitis and osteomyelitis with suspected peripheral vascular disease Hypertension, uncontrolled with poor compliance Diabetes mellitus type 2 Hyperlipidemia History of CVA with residual aphasia History of dysphagia now with PEG tube Diabetic neuropathy Plan: Right great toe cellulitis and osteomyelitis with suspected peripheral vascular disease: Will continue with IV antibiotic therapy. Case discussed with surgery. Patient will need IV vancomycin for 6 weeks. Will arrange for home health for IV antibiotic therapy. Will consult Dr. Barbour to establish care and follow up with IV antibiotic therapy and wound care. Will need to evaluate for peripheral vascular disease. If abnormal patient may require cardiology evaluation prior to discharge. Await arterial doppler findings. Patient to get PICC line today. Hypertension, uncontrolled with poor compliance: Continue with home medication. Will monitor and address appropriately. Diabetes mellitus type 2: Continue with sliding scale. Hyperlipidemia: Restart home medication History of CVA with residual aphasia: Will provide DVT prophylaxis. Will continue with Plavix. Will have physical therapy and occupational therapy to assess. History of dysphagia now with PEG tube: Will continue with tube feeds. Dietary consulted to help in this process. Diabetic neuropathy: Will monitor closely. Time Spent Managing Pts Care (In Minutes): 55
[2018-11-13] MEDS ORDERED: BUPIVACAINE 0.25% PF 10 ML VIAL ONE (11:13)
--- NOTE | 2018-11-13 11:40 | P.CNS ---
Date of Consult: 11/13/18 Unfortunate patient with osteomyelitis of the right great toe. She was refererd to the hospital from the clinic in [place] she goes to. she has a histoy of htn, hyperlipidemia and diabetes. She had a cva 2 years ago with residual hemiplegia She was admitted for the osteomyelitis. She needs 6 weeks of iv antibiotics. The patient is not able to give a good ROS due to her aphasia. However denies fever, chills, chest pain or sob. PMH CVA with residual hemiplegia, htn, hyperlipidemia, diabetes PSH Unknown Allergies NKDA Social history. Home bound, relies on her daughter and for ADL's [employer], hemiplegia CVS s1, s2, rrr RS LCTA HEENt Perrla, dropping of the left side of the face NO cervical LAD ext- Dry eschar over the right greater toe. The patient has surrounding erythema. a/p 1.Osteomyelitis. Will let the hospitalist start her on antibiotics. Will be happy to follow her as an outpatient 2. Diabetes. Awaiting the a1c. Will see if there is anyother options to add to metformin 3. HTN. not well controlled. Will increase her lisinopril. 4. Hyperlipidemia. Controlled on atorvastatin
[2018-11-13] MEDS: COLLAGENASE 30 GM OINTMENT TOP SCH (12:25)
--- NOTE | 2018-11-13 12:34 | RAD REPORT ---
EXAM DESCRIPTION: US - Lower Extremity Artery Uni Ltd - 11/13/2018 12:24 pm CLINICAL HISTORY: Right foot wound, peripheral vascular disease COMPARISON: None. TECHNIQUE: Doppler evaluation of the right lower extremity arterial tree performed. Waveforms and ve locity values were obtained along with visual inspection. FINDINGS: Triphasic waveform pattern was seen at the right common femoral artery. Waveform pattern d ampened send transitions to a biphasic waveform pattern at the popliteal artery. Monophasic waveform pattern is seen between the popliteal artery and the ankle arteries. Atherosclerotic changes are iden tifiable.No occlusion or focal flow restricting lesion identifiable. Right common femoral artery peak systolic velocity was 120 cm/second. Superficial femoral artery [place] range from 53-114 cm/second. Popliteal artery velocity was dampened at 27 cm/seconds with post erior tibial artery 31 cm/second and dorsalis pedis artery 38 cm/second. IMPRESSION: Moderate severity for age right lower extremity peripheral arterial disease. Patient has a monophasic waveform pattern from knee to ankle. No occlusion or focal flow restricting lesion identified.
[2018-11-13] MEDS: VANCOMYCIN 1.25 GM in NA CHLORIDE 0.9% 250 ML IVPB SCH (12:59)
--- NOTE | 2018-11-13 15:30 | CON ---
Date of Consultation: 11/12/2018 Reason For Consultation: Wound, right foot. History Of Present Illness: The patient is a 58-year-old female, who has multiple medical problems, was seen in [facility] to get her antihypertensive medication refilled; however, they found infe ction in her right great toe, which was referred to the emergency room. The redness has been there f or about 3 days and she has a scab on the top of the toe. She was admitted for blood pressure contro l and treatment of the cellulitis. She had redness progressing to her foot. She is awake, alert, an d confused and unable to give an adequate review of system but there has been no purulent discharge. No fever or chills. No sore throat, runny nose, cough, headaches, or dizziness. No chest pain. Review of Systems: Otherwise unremarkable. Past Medical History: Significant stroke with expressive aphasia, type 2 diabetes, hypertension, hyp erlipidemia, diabetic neuropathy, dysphagia. Past Surgical History: PEG tube placement, hysterectomy. Allergies: NONE. Social History: The patient does not smoke. Does not drink. Family History: Significant for stroke and heart disease. Physical Examination: Vital signs: Stable. Blood pressure is 160/70. She is afebrile. General: She is awake. Head and Neck: No masses. Chest: Clear. Heart: S1, S2. Abdomen: Soft. Extremities: Markedly diminished dorsalis pedis and posterior tibial pulses. Shiny white skin consis tent with arterial disease. The right first toe is red, erythematous. Some of the redness and edema going to the forefoot. Not much tenderness because of the neuropathy and there is approximately 1 cm scab, dry, hard. Does not appear to have any purulence underneath it. Laboratory Data: Shows her white count to be 9.3, slight left shift. INR is 1. Chemistry reviewed, albumin is 3.6. Her procalcitonin and lactic acid were normal. X-ray and MRI are reviewed, chery rodrigues what she has is a mild early osteo to distal proximal phalanx. Assessment: A 58-year-old female with multiple medical problems with right first toe wound with oste o and peripheral vascular disease. Recommendation: IV antibiotics as ordered she will need for 6 weeks. Wound care would be just colla genase. [facility] and she needs arterial Doppler to evaluate her circulation to see if intervention would help improve the circulation to that foot. Plan of care di scussed in detail with Dr. Jeronimo. VINCENT/RICHI Voice ID: [id number] Report ID: [id number]
--- NOTE | 2018-11-13 17:22 | RAD REPORT ---
EXAM DESCRIPTION: RAD - Chest Single View - 11/13/2018 5:05 pm CLINICAL HISTORY: PICC line placement COMPARISON: November 12 FINDINGS: Portable chest was obtained following placement of a right upper extremity PICC line. The catheter tip is in the right atrium. Retraction of the PICC line [address] the line in the mid to distal SVC.
[2018-11-13] MEDS ORDERED: LIDOCAINE 1% MPF 5 ML VIAL ONE (18:37)
[2018-11-13] MEDS: ATORVASTATIN 20 MG TAB FT SCH (21:38)
[2018-11-14] MEDS ORDERED: SODIUM CHLORIDE 0.9% 10ML INJ IV PRN ×2 (04:00)
[2018-11-14] MEDS: METOPROLOL TAR 50 MG TAB FT SCH (05:01)
[2018-11-14] MEDS: VANCOMYCIN 1.25 GM in NA CHLORIDE 0.9% 250 ML IVPB SCH (06:29)
[2018-11-14 07:07] LABS: Absolute Lymphocytes (CBC) 2.4 K/uL (0.7-4.9); Absolute Monocytes 0.6 K/uL (0.1-1.3); Absolute Neutrophil 5.7 K/uL (1.8-8.0); Basophils % 0.6 % (0-1.3); Hematocrit 42.1 % (36.0-45.0); Lymphocytes % 26.8 % (15.3-44.8); MPV 9.7 fL (7.6-11.3); Monocytes % 6.8 % (3.3-12.3); RBC Red Blood Cell Count 4.86 M/uL (3.86-4.86)
[2018-11-14 07:28] LABS: BUN Blood Urea Nitrogen 23 mg/dL (7-18); Bicarbonate 31 mmol/L (21-32); Glucose Level 145 mg/dL (74-106); HDL Cholesterol 44 mg/dL (40-60); LDL Cholesterol, Calculated 64 (<130); Potassium 3.9 mmol/L (3.5-5.1); Sodium Level 142 mmol/L (136-145)
[2018-11-14] MEDS: INSULIN -REGULAR HUMAN 50 UNIT/0.5 ML ML SQ SCH ×2 (07:30→11:30)
--- NOTE | 2018-11-14 08:45 | P.DS ---
Admission Date: 11/12/18 Discharge Date: 11/14/18 Primary Care Provider: [facility]([place], [place]) Disposition: DC HOME/HOME HEALTH CARE Discharge Condition: GOOD Reason for Admission: Elevated blood pressure and infection to the right great toe Consultations: Surgery-Dr. Tracy [facility]-Dr. Barbour Procedures: MRI foot: COMPARISON: November 12, 2018 x-ray TECHNIQUE: Axial, sagittal and coronal magnetic resonance imaging of the left foot was obtained. FINDINGS: Diffuse edema is present within the subcutaneous tissues. Small area of abnormal signal is present within the distal aspect of the first proximal phalanx which is suspicious for mild osteomyelitis. No fracture or dislocation seen IMPRESSION: Small area of osteomyelitis is suspected within the distal aspect of the first proximal phalanx Arterial Doppler: FINDINGS: Triphasic waveform pattern was seen at the right common femoral artery. Waveform pattern dampened send transitions to a biphasic waveform pattern at the popliteal artery. Monophasic waveform pattern is seen between the popliteal artery and the ankle arteries. Atherosclerotic changes are identifiable.No occlusion or focal flow restricting lesion identifiable. Right common femoral artery peak systolic velocity was 120 cm/second. Superficial femoral artery velocities range from 53-114 cm/second. Popliteal artery velocity was dampened at 27 cm/seconds with posterior tibial artery 31 cm /second and dorsalis pedis artery 38 cm/second. IMPRESSION: Moderate severity for age right lower extremity peripheral arterial disease. Patient has a monophasic waveform pattern from knee to ankle. No occlusion or focal flow restricting lesion identified. Medical Problem List: Right great toe cellulitis complicated with distal aspect of 1st proximal phalanx osteomyelitis with peripheral vascular disease without occlusion Hypertension, uncontrolled with poor compliance Diabetes mellitus type 2 Hyperlipidemia History of CVA with residual aphasia History of dysphagia now with PEG tube Diabetic neuropathy Brief History of Present Illness: 58-year-old female with multiple medical problems including hypertension, diabetes, history of CVA with residual deficit-aphasia with noted dysphagia now with PEG tube. Patient presented to her PCP for refills on her medication and for infection to her left great toe. Patient had ran out of her blood pressure medication. Upon evaluation at the clinic her blood pressure was elevated. She is found to have left great toe erythema with a scab. She was sent to the ER for further evaluation. Family reports no fever, pain. Apparently erythema started about 3 days ago. It has not improved. In the ER patient evaluated. White count 9.5, hemoglobin 15.5. Sodium 139, potassium 4.3, BUN of 19, creatinine 0.76 with a GFR 78. Glucose 135. Pro calcitonin unremarkable. Troponin unremarkable. Chest x-ray unremarkable. X- ray shows possible osteomyelitis of the left great toe. Patient was started on IV antibiotic therapy. Patient admitted for further evaluation and treatment. When I saw the patient ER, she appeared comfortable. Patient with elevated blood pressure. Family at bedside. Hospital Course: Patient admitted for right great toe cellulitis. Upon further evaluation patient found to have distal aspect of 1st proximal phalanx osteomyelitis. Arterial Doppler showed peripheral vascular disease without occlusion. Patient seen and evaluated by surgery. No surgical intervention was required. Patient was started on antibiotic therapy. Wound care initiated. IV antibiotic therapy recommended. Arrangements for IV antibiotic therapy with home health arranged. PICC line in place. Outpatient stewardship with Dr. Barbour has been arranged. At discharge she will continue with IV vancomycin currently at 1.25 g every 18 hr for 6 weeks. Pharmacy to monitor and adjust appropriately. Dr. Barbour will continue her care including wound care and her multiple medical problems. Recommend to follow up with Dr. Barbour within 1 week to further address and monitor. Pharmacy to monitor vanc trough levels and BMP closely. Patient may continue with tramadol 50 mg 3 times a day as needed for pain. Prior discharge home health and antibiotic company to teach family on administering of medication. Patient with hypertension. This was not well controlled. Medications adjusted during her stay. Lisinopril was increased. Hydralazine added. At discharge she will continue with metoprolol 50 mg 1 pill twice daily, lisinopril 20 mg 1 pill twice daily and hydralazine 25 mg 1 pill twice daily. Recommendation is to maintain blood pressures less 150/80. Further adjustment can be done by Dr. Barbour. Patient with diabetes mellitus type 2. A1c 7.1. Patient will continue with her current medication-metformin 1000 mg twice daily. Recommend to maintain blood sugars less 140 fasting and less than 200 after meals. Further adjustment can be done by her PCP. Patient with hyperlipidemia. Patient will continue with her medication-Lipitor 40 mg daily. Patient with history of CVA with residual aphasia and dysphagia now with PEG tube. Patient will continue with her current medication Plavix 75 mg daily. Patient will also continue with her current tube feeds with Glucerna 1.5 one can 4 times a day. Patient will continue with physical therapy at discharge. Patient with diabetic neuropathy. Patient will continue with her medication- tramadol 50 mg 3 times a day as needed for pain. Further adjustment can be done by her PCP. Vital Signs/Physical Exam: Temp Pulse Resp BP Pulse Ox 96.3 F L 60 18 186/90 H 95 11/14/18 04:00 11/14/18 05:01 11/14/18 04:00 11/14/18 05:01 11/14/18 04:00 General: Alert, Other (Aphasia noted) HEENT: Atraumatic Neck: Supple Respiratory: Clear to auscultation bilaterally, Normal air movement Cardiovascular: Normal pulses, Regular rate/rhythm Gastrointestinal: Normal bowel sounds, Soft and benign, Non-distended, Other ( PEG tube in place) Musculoskeletal: No erythema, No tenderness, No warmth Integumentary: Other (Erythema to the right great toe slightly improved. Scab noted to the anterior surface of the great toe) Neurological: Normal affect Laboratory Data at Discharge: WBC 9.0 K/uL (4.3-10.9) 11/14/18 06:24 Hgb 14.3 g/dL (12.0-15.0) 11/14/18 06:24 Hct 42.1 % (36.0-45.0) 11/14/18 06:24 Plt Count 288 K/uL (152-406) 11/14/18 06:24 PT 11.8 SECONDS (9.5-12.5) 11/12/18 10:00 INR 1.00 11/12/18 10:00 APTT 34.0 SECONDS (24.3-36.9) 11/12/18 10:00 Sodium 142 mmol/L (136-145) 11/14/18 06:10 Potassium 3.9 mmol/L (3.5-5.1) 11/14/18 06:10 BUN 23 mg/dL (7-18) H 11/14/18 06:10 Creatinine 0.64 mg/dL (0.55-1.3) 11/14/18 06:10 Glucose 145 mg/dL (74-106) H 11/14/18 06:10 Magnesium 2.0 mg/dL (1.8-2.4) 11/14/18 06:10 Total Bilirubin 0.7 mg/dL (0.2-1.0) 11/12/18 10:00 AST 20 U/L (15-37) 11/12/18 10:00 ALT 21 U/L (12-78) 11/12/18 10:00 Alkaline Phosphatase 104 U/L (45-117) 11/12/18 10:00 Triglycerides 110 mg/dL (<150) 11/14/18 06:10 Cholesterol 130 mg/dL (<200) 11/14/18 06:10 HDL Cholesterol 44 mg/dL (40-60) 11/14/18 06:10 Cholesterol/HDL Ratio 2.95 11/14/18 06:10 Lipase 62 U/L (73-393) L 11/12/18 10:00 Home Medications: Glucerna 1.5 Vikas 237 ml FT QID #90 bot 02/10/18 Atorvastatin Calcium [Lipitor*] 20 mg FT BEDTIME #30 tab 11/14/18 Clopidogrel Bisulfate [Plavix*] 75 mg FT DAILY #30 tablet 11/14/18 Collagenase [Santyl Ointment*] 1 appl TOP DAILY #1 tube 11/14/18 Hydralazine [Apresoline*] 25 mg PO BID #60 tab 11/14/18 Lisinopril [Prinivil*] 20 mg FT BID #60 tab 11/14/18 Metformin HCl 1,000 mg FT BID #60 tablet 11/14/18 Metoprolol Tartrate [Lopressor*] 50 mg FT BID 6AM 6PM #60 tab 11/14/18 traMADol HCL [Ultram*] 50 mg FT TID PRN #15 tab 11/14/18 New Medications: Atorvastatin Calcium [Lipitor*] 20 mg FT BEDTIME #30 tab Clopidogrel Bisulfate [Plavix*] 75 mg FT DAILY #30 tablet Collagenase [Santyl Ointment*] 1 appl TOP DAILY #1 tube Hydralazine [Apresoline*] 25 mg PO BID #60 tab Lisinopril [Prinivil*] 20 mg FT BID #60 tab Metformin HCl 1,000 mg FT BID #60 tablet Metoprolol Tartrate [Lopressor*] 50 mg FT BID 6AM 6PM #60 tab traMADol HCL [Ultram*] 50 mg FT TID PRN #15 tab PRN Reason: Pain Scale 2-4 (Mild) Patient Discharge Instructions: 1. Patient will follow up with Dr. Barbour within one week to continue her care. 2. Patient admitted for right great toe cellulitis. Upon further evaluation patient found to have distal aspect of 1st proximal phalanx osteomyelitis. Arterial Doppler showed peripheral vascular disease without occlusion. Patient seen and evaluated by surgery. No surgical intervention was required. Patient was started on antibiotic therapy. Wound care initiated. IV antibiotic therapy recommended. Arrangements for IV antibiotic therapy with home health arranged. PICC line in place. Outpatient stewardship with Dr. Barbour has been arranged. At discharge she will continue with IV vancomycin currently at 1.25 g every 18 hr for 6 weeks. Pharmacy to monitor and adjust appropriately. Dr. Barbour will continue her care including wound care and her multiple medical problems. Recommend to follow up with Dr. Barbour within 1 week to further address and monitor. Pharmacy to monitor vanc trough levels and BMP closely. Patient may continue with tramadol 50 mg 3 times a day as needed for pain. Prior discharge home health and antibiotic company to teach family on administering of medication. 3. Patient with hypertension. This was not well controlled. Medications adjusted during her stay. Lisinopril was increased. Hydralazine added. At discharge she will continue with metoprolol 50 mg 1 pill twice daily, lisinopril 20 mg 1 pill twice daily and hydralazine 25 mg 1 pill twice daily. Recommendation is to maintain blood pressures less 150/80. Further adjustment can be done by Dr. Barbour. 4. Patient with diabetes mellitus type 2. A1c 7.1. Patient will continue with her current medication-metformin 1000 mg twice daily. Recommend to maintain blood sugars less 140 fasting and less than 200 after meals. Further adjustment can be done by her PCP. 5. Patient with hyperlipidemia. Patient will continue with her medication-Lipitor 40 mg daily. 6. Patient with history of CVA with residual aphasia and dysphagia now with PEG tube. Patient will continue with her current medication Plavix 75 mg daily. Patient will also continue with her current tube feeds with Glucerna 1.5 one can 4 times a day. Patient will continue with physical therapy at discharge. 7. Patient with diabetic neuropathy. Patient will continue with her medication- tramadol 50 mg 3 times a day as needed for pain. Further adjustment can be done by her PCP. Diet: PEG tube feeds Activity: Fall precautions Time spent managing pt's care (in minutes): 55
[2018-11-14] MEDS: GLUCERNA SHAKE 237 ML CAN PO SCH (09:00)
[2018-11-14] MEDS ORDERED: SODIUM CHLORIDE 0.9% 10ML INJ IV SCH (09:00)
[2018-11-14] MEDS ORDERED: HYDRALAZINE HCL 25 MG TABLET PO SCH (09:00)
[2018-11-14] MEDS: ENOXAPARIN 40 MG/0.4 ML SQ SCH (09:03)
[2018-11-14] MEDS: FAMOTIDINE 20 MG/2 ML VIAL IV SCH (09:04)
[2018-11-14] MEDS: LISINOPRIL 20 MG TAB FT SCH (09:04)
[2018-11-14] MEDS: CLOPIDOGREL 75 MG TABLET FT SCH (09:04)
[2018-11-14] MEDS: COLLAGENASE 30 GM OINTMENT TOP SCH (09:05)
[2018-11-14 09:38] VITALS: O2SAT 95
[2018-11-14] MEDS ORDERED: GLUCERNA 1.2 CAL 1,000 ML BOT RTH SCH (10:00)
[2018-11-14 13:10] VITALS: BP 150/70; TEMP 97.1
== END 2018-11-14 12:39 | disposition home health service (06) | DRG 540 ==
LOC: ER 09:37 → ERHOLD 11:21 → 2ND 14:02
PROVIDERS: ADMIT Family Medicine; ATTEND Family Medicine
PROC: 02HV33Z Insertion of Infusion Device into Superior Vena Cava, Percutaneous Approach (ICD-10-PCS; principal; 2018-11-13)
PROC: B548ZZA Ultrasonography of Superior Vena Cava, Guidance (ICD-10-PCS; 2018-11-13)
DX: M86.171 Other acute osteomyelitis, right ankle and foot (principal); I69.359 Hemiplegia and hemiparesis following cerebral infarction affecting unspecified side; L03.031 Cellulitis of right toe; E11.51 Type 2 diabetes mellitus with diabetic peripheral angiopathy without gangrene; E78.5 Hyperlipidemia, unspecified; I69.320 Aphasia following cerebral infarction; E11.40 Type 2 diabetes mellitus with diabetic neuropathy, unspecified; Z93.1 Gastrostomy status; Z79.84 Long term (current) use of oral hypoglycemic drugs; I69.391 Dysphagia following cerebral infarction; R13.10 Dysphagia, unspecified
CPT/HCPCS: 36415; 71045; 80048; 80061; 80076; 80202; 81003; 81015; 82550; 82553; 82962; 83036; 83605; 83690; 83735; 84145; 84439; 84443; 84484; 85025; 85610; 85730; 87040; 93005; 93926; 99285; J0696; J1650; J2405; J2920; J3370; J3590

== ENCOUNTER 2018-12-15 14:18 | Emergency (ER) | payer MEDICAID, SELFPAY ==
--- OUTSIDE RECORDS SUMMARY | 2018-12-15 14:31 | XMS REPORT ---
:1960 Author Organization [employer] Care Team Providers Name Role Phone Chris Barbour Provider Role Unavailable Allergies, Adverse Reactions, Alerts Substance Reaction Event Type N.K.D.A. 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 Problem CVA, old, hemiparesis I69.359 Active Problem Essential hypertension I10 Active Problem Non-pressure chronic ulcer of other L97.519 Active part of right foot with unspecified severity Problem Osteomyelitis, unspecified M86.9 Active Problem Type 2 diabetes mellitus with foot E11.621 Active ulcer Problem Other specified diabetes mellitus E13.69 Active with other specified complication Assessment CVA, old, hemiparesis I69.359 Active Assessment Osteomyelitis, unspecified M86.9 Active Assessment Hyperlipidemia, unspecified E78.5 Active hyperlipidemia type Assessment Type 2 diabetes mellitus with foot E11.621 Active ulcer Assessment Essential hypertension I10 Active Assessment Non-pressure chronic ulcer of other L97.519 Active part of right foot with unspecified severity Medications Medication Code Code Instructions Start End Status Dosage System Date Date atorvastatin ND 18491588790 20mg Active 1 tablet by mouth at bedtime Pantoprazole ND 47240218130 40 MG Orally Active 1 tablet Sodium Once a day Promethazine HCl ND 57258016145 6.25 MG/5ML NovemberJanuary 23, Active 10 ml as Orally every 6 2018 2019 needed hrs HydrALAZINE HCl ND 67838350674 25 MG Orally Active 1 tablet Three times a with food day Tramadol HCl ND 65284232481 50 MG Orally Active as directed Lisinopril ND 65421826656 10 MG Orally Active 1 tablet Once a day Metformin HCl ND 81353543585 500 MG Orally Active 1 tablet Once a day with a meal Results No Known Results Summary Purpose [employer] Submission
--- OUTSIDE RECORDS SUMMARY | 2018-12-15 14:31 | XMS REPORT ---
:1960 Author Organization [employer] Care Team Providers Name Role Phone Chris Barbour Provider Role Unavailable Allergies No Known Allergies Problems Problem Type Condition Code Onset Dates Condition Status Problem Hyperlipidemia, unspecified E78.5 Active hyperlipidemia type [...] mellitus E13.69 Active with other specified complication Medications No Known Medications Results No Known Results Summary Purpose [employer] Submission
--- OUTSIDE RECORDS SUMMARY | 2018-12-15 14:31 | XMS REPORT ---
[...] E13.69 Active with other specified complication Medications Medication Code Code Instructions Start End Status Dosage System Date Date Metformin HCl [facility] 31153090659 500 MG Orally Active 1 tablet Twice a day with a meal atorvastatin [facility] 38108183421 20mg oral at Active 1 tablet bedtime HydrALAZINE HCl [facility] 18605366969 25 MG Orally Active 1 tablet Twice a day with food Plavix [facility] 31280734626 75 MG Orally Swetha Active 1 tablet Once a day 2018 Pantoprazole [facility] 68737196128 40 MG Orally Active 1 tablet Sodium Once a day Results No Known Results Summary Purpose [employer]Works Submission
--- NOTE | 2018-12-15 16:15 | RAD REPORT ---
EXAM DESCRIPTION: RAD - Abdomen Single View - 12/15/2018 3:53 pm CLINICAL HISTORY: PEG tube repositioning COMPARISON: None. FINDINGS: Two KUB films were obtained prior to and subsequent to retrograde injection of contrast in to the PEG tube following replacement or repositioning. Initial image shows a nonspecific bowel gas pattern. No free air or pneumatosis. PEG tube is near the fundus of the stomach. Post-injection image shows contrast contained within the stomach lumen. No ex travasation identifiable. IMPRESSION: PEG tube is in place near the fundus of the stomach. No extravasation of contrast.
--- NOTE | 2018-12-15 16:35 | ER ---
Nurse's Notes [facility] Name: Juana Navarro Age: 58 yrs Sex: Female : 1960 Arrival Date: 12/15/2018 Time: 14:19 Bed 18 Private MD: Chris Barbour Diagnosis: Displacement of vascular dialysis catheter Presentation: 12/15 14:25 Presenting complaint: Pt's daughter states "she pulled her PICC line out today and I aa5 called Dr. Barbour and he said to bring her here because he doesn't want her to miss her vancomycin dose for tomorrow". Pt's daughter states "she's getting antibiotics for her right big toe infection". Pt's daughter also states "I think she's also been pulling on her PEG tube". 14:25 Acuity: DAVID 3 aa5 14:31 Transition of care: patient was not received from another setting of care. Onset of aa5 symptoms was December 2018. Risk Assessment: Do you want to hurt yourself or someone else? Unable to obtain. Initial Sepsis Screen: Does the patient meet any 2 criteria? No. Patient's initial sepsis screen is negative. Does the patient have a suspected source of infection? No. Patient's initial sepsis screen is negative. Care prior to arrival: None. 14:31 Method Of Arrival: Wheelchair aa5 Triage Assessment: 14:40 General: Appears in no apparent distress. comfortable, Behavior is cooperative, bp appropriate for age, anxious. Pain: Denies pain. Historical: - Allergies: 14:25 No Known Allergies; aa5 - PMHx: 14:25 CVA; Diabetes - NIDDM; G Tube; Hypertension; NPO, aspiration; aa5 - PSHx: 14:25 ovaries removed; aa5 - Immunization history:: Adult Immunizations up to date. - Social history:: Smoking status: Patient/guardian denies using tobacco, Patient/guardian denies using alcohol, street drugs, The patient lives with family. - Ebola Screening: : No symptoms or risks identified at this time. - Family history:: not pertinent. Screenin:30 Abuse screen: Denies threats or abuse. Denies injuries from another. Nutritional bp screening: No deficits noted. Tuberculosis screening: No symptoms or risk factors identified. Fall Risk None identified. Assessment: 14:30 General: Appears in no apparent distress. comfortable, Behavior is AT BASELINE. Pain: bp Denies pain. Neuro: Level of Consciousness is awake, alert, obeys commands, Oriented to AT BASELINE. Cardiovascular: No deficits noted. Respiratory: Airway is patent. GI: G-TUBE. : No signs and/or symptoms were reported regarding the genitourinary system. EENT: No deficits noted. Derm: No deficits noted. Musculoskeletal: AT BASELINE. 16:44 Reassessment: PT D/C HOME VIA W/C WITH FAMILY, DX WITH DISPLACEMENT OF VASCULAR bp CATHETER. Vital Signs: 14:34 BP 151 / 79; Pulse 73; Resp 18 S; Temp 98.4(TE); Pulse Ox 97% on R/A; aa5 16:41 BP 154 / 85; Pulse 70; Resp 14; Pulse Ox 95% ; bp ED Course: 14:19 Patient arrived in ED. as 14:20 Chris Barbour MD is Private Physician. as 14:25 Arm band placed on. aa5 14:30 Patient has correct armband on for positive identification. Bed in low position. Call bp light in reach. Side rails up X2. Adult w/ patient. 14:32 Triage completed. aa5 14:36 Diego Irizarry, RN is Primary Nurse. bp 14:47 Sanya Carr MD is Attending Physician. ma2 15:53 Abdomen 1 View XRAY In Process Unspecified. EDMS 16:44 No provider procedures requiring assistance completed. Patient did not have IV access bp during this emergency room visit. Administered Medications: No medications were administered Outcome: 16:35 Discharge ordered by . ma2 16:44 Discharged to home via wheelchair, with family. bp 16:44 Condition: stable 16:44 Discharge instructions given to family, Instructed on discharge instructions, follow up and referral plans. Demonstrated understanding of instructions, follow-up care. 16:45 Patient left the ED. bp Signatures: Dispatcher [employer] EDMS Araceli Gallegos Audri, RN RN aa5 Diego Irizarry, RN RN bp Sanya Carr MD MD ma2 Corrections: (The following items were deleted from the chart) 14:34 14:31 Presenting complaint: Pt's daughter states "she pulled her PICC line out today aa5 and I called Dr. Barbour and he said to bring her here because he doesn't want her to miss her vancomycin dose for tomorrow". Pt's daughter states "I think she's also been pulling on her PEG tube" aa5 14:31 Risk Assessment: Do you want to hurt yourself or someone else? Patient reports no aa5 desire to harm self or others. aa5 14:31 Acuity: DAVID 3 aa5 aa5 14:25 Presenting complaint: Pt's daughter states "she pulled her PICC line out today aa5 and I called Dr. Barbour and he said to bring her here because he doesn't want her to miss her vancomycin dose for tomorrow". Pt's daughter states "I think she's also been pulling on her PEG tube" aa5
--- NOTE | 2018-12-15 16:35 | EDPHYS ---
Physician Documentation [facility] Name: Juana Navarro Age: 58 yrs Sex: Female : 1960 Arrival Date: 12/15/2018 Time: 14:19 Bed 18 Private MD: Chris Peterson ED Physician Sanya Carr HPI: 12/15 15:16 This 58 yrs old Female presents to ER via Wheelchair with complaints of Pulled ma2 out PICC line. 15:16 pulled picc line. Onset: The symptoms/episode began/occurred suddenly, 6 hour(s) ago. ma2 Severity of symptoms: At their worst the symptoms were. The patient has experienced a previous episode. Historical: - Allergies: 14:25 No Known Allergies; aa5 - PMHx: 14:25 CVA; Diabetes - NIDDM; G Tube; Hypertension; NPO, aspiration; aa5 - PSHx: 14:25 ovaries removed; aa5 - Immunization history:: Adult Immunizations up to date. - Social history:: Smoking status: Patient/guardian denies using tobacco, Patient/guardian denies using alcohol, street drugs, The patient lives with family. - Ebola Screening: : No symptoms or risks identified at this time. - Family history:: not pertinent. ROS: 15:16 Constitutional: Negative for fever, chills, and weight loss, Cardiovascular: Negative ma2 for chest pain, palpitations, and edema, Respiratory: Negative for shortness of breath, cough, wheezing, and pleuritic chest pain, Abdomen/GI: Negative for abdominal pain, nausea, diarrhea, and constipation. 15:17 All other systems are negative. ma2 Exam: 15:17 Constitutional: This is a well developed, well nourished patient who is awake, alert, ma2 and in no acute distress. Chest/axilla: Normal chest wall appearance and motion. Nontender with no deformity. No lesions are appreciated. Cardiovascular: Regular rate and rhythm with a normal S1 and S2. No gallops, murmurs, or rubs. Normal PMI, no JVD. No pulse deficits. Respiratory: Lungs have equal breath sounds bilaterally, clear to auscultation and percussion. No rales, rhonchi or wheezes noted. No increased work of breathing, no retractions or nasal flaring. Abdomen/GI: Soft, non-tender, with normal bowel sounds. No distension or tympany. No guarding or rebound. No evidence of tenderness throughout. MS/ Extremity: Pulses equal, no cyanosis. Neurovascular intact. Full, normal range of motion. 15:17 Musculoskeletal/extremity: picc line is out . Vital Signs: 14:34 BP 151 / 79; Pulse 73; Resp 18 S; Temp 98.4(TE); Pulse Ox 97% on R/A; aa5 16:41 BP 154 / 85; Pulse 70; Resp 14; Pulse Ox 95% ; bp MDM: 14:47 Patient medically screened. ma2 15:17 Differential Diagnosis PICC line removed, she received vancomycin today, no PICC line ma2 nurse available today . 16:26 ED course: dr. peterson called and request more time. [facility] 16:27 Data reviewed: vital signs, nurses notes. Counseling: I had a detailed discussion with [facility] the patient and/or guardian regarding: the historical points, exam findings, and any diagnostic results supporting the discharge/admit diagnosis, the presence of at least one elevated blood pressure reading (>120/80) during this emergency department visit, dr. santana called and recommend discharging her and he arranged for outpatient follow up with day surgery tomorrow morning for a picc line . 12/15 15:04 Order name: Abdomen 1 View XRAY; Complete Time: 16:26 wv2 Administered Medications: No medications were administered Disposition: 12/15/18 16:35 Discharged to Home. Impression: Displacement of vascular dialysis catheter. - Condition is Stable. - Discharge Instructions: PICC Insertion. - Medication Reconciliation Form, Thank You Letter, Antibiotic Education, Prescription Opioid Use form. - Follow up: Private Physician; When: Tomorrow; Reason: Continuance of care. Signatures: Dispatcher [employer] EDMS Delma Coats RN RN aa5 Diego Irizarry RN RN bp Sanya Carr MD MD ma2 Corrections: (The following items were deleted from the chart) 16:45 16:35 12/15/2018 16:35 Discharged to Home. Impression: Displacement of vascular bp dialysis catheter. Condition is Stable. Forms are Medication Reconciliation Form, Thank You Letter, Antibiotic Education, Prescription Opioid Use. Follow up: Private Physician; When: Tomorrow; Reason: Continuance of care. ma2
[2018-12-15 16:59] VITALS: TEMP 98.4
[2018-12-15 17:01] VITALS: BP 154/85; O2SAT 95
== END 2018-12-15 16:45 | disposition home or self-care (01) ==
LOC: ER 14:18
DX: T82.42XA Displacement of vascular dialysis catheter, initial encounter (principal)
CPT/HCPCS: 74018; 99283

== ENCOUNTER 2019-03-27 15:14 | Emergency (ER) | payer MEDICAID ==
--- OUTSIDE RECORDS SUMMARY | 2019-03-27 15:16 | XMS REPORT ---
[...] Status Dosage System Date Date Metformin HCl [facility] 06736547531 500 MG Orally Active 1 tablet Twice a day with a meal atorvastatin [facility] 63840536652 20mg oral at Active 1 tablet bedtime HydrALAZINE HCl [facility] 57795376569 25 MG Orally Active 1 tablet Twice a day with food Plavix [facility] 09517728300 75 MG Orally Swetha Active 1 tablet Once a day 2018 Pantoprazole [facility] 72957665620 40 MG Orally Active 1 tablet Sodium Once a day Results No Known Results Summary Purpose eClinicalWorks Submission
--- OUTSIDE RECORDS SUMMARY | 2019-03-27 15:16 | XMS REPORT ---
[...] Status Dosage System Date Date atorvastatin ND 69130923241 20mg Active 1 tablet by mouth at bedtime Pantoprazole ND 59057814834 40 MG Orally Active 1 tablet Sodium Once a day Promethazine HCl ND 87035496338 6.25 MG/5ML NovemberJanuary 23, Active 10 ml as Orally every 6 2018 2019 needed hrs HydrALAZINE HCl ND 96055023975 25 MG Orally Active 1 tablet Three times a with food day Tramadol HCl ND 86240874233 50 MG Orally Active as directed Lisinopril ND 95293721829 10 MG Orally Active 1 tablet Once a day Metformin HCl ND 36381104243 500 MG Orally Active 1 tablet Once a day with a meal Results No Known Results Summary Purpose eClinicalWorks Submission
--- OUTSIDE RECORDS SUMMARY | 2019-03-27 15:17 | XMS REPORT ---
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 Problem Essential hypertension I10 Active Problem Non-pressure chronic ulcer of other L97.511 Active part of right foot limited to breakdown of skin Problem CVA, old, aphasia I69.320 Active Problem Diabetes mellitus due to underlying E08.621 Active condition with foot ulcer Problem Non-pressure chronic ulcer of other L97.519 Active part of right foot with unspecified severity Problem Osteomyelitis, unspecified M86.9 Active Problem PEG (percutaneous endoscopic Z43.1 Active gastrostomy) adjustment/replacement/removal Problem Arthritis of multiple sites M13.0 Active Medications Medication Code System Code Instructions Start Date End Date Status Dosage Lisinopril [facility] 85914771600 40 MG Orally Once Active 1 tablet a day Results No Known Results Summary Purpose eClinicalWorks Submission
--- OUTSIDE RECORDS SUMMARY | 2019-03-27 15:17 | XMS REPORT ---
[...] Arthritis of multiple sites M13.0 Active Medications No Known Medications Results No Known Results Summary Purpose eClinicalWorks Submission
--- OUTSIDE RECORDS SUMMARY | 2019-03-27 15:17 | XMS REPORT ---
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 Assessment PEG (percutaneous endoscopic Z43.1 Active gastrostomy) adjustment/replacement/removal Problem Essential hypertension I10 Active Medications Medication Code Code Instructions Start End Status Dosage System Date Date Plavix [facility] 39217115341 75 MG Orally Active 1 tablet Once a day Atorvastatin [facility] 51907234815 20 MG Active TAKE 1 Calcium TABLET BY MOUTH AT BEDTIME Tramadol HCl [facility] 05104309047 50 MG Orally Active as directed HydrALAZINE HCl [facility] 71260087420 25 MG Orally Active 1 tablet Twice a day with food Pantoprazole [facility] 97644835302 40 MG Orally Active 1 tablet Sodium Once a day atorvastatin [facility] 48776781120 20mg oral at Active 1 tablet bedtime Acetaminophen [facility] [address]-92 167 MG/5ML February 25Aug Active 5ml Orally every 2018 17, hrs 2018 Lisinopril [facility] 61463290496 10 MG Orally Active 1 tablet Once a day Metformin HCl [facility] 62056994757 500 MG Orally Active 1 tablet Twice a day with a meal Results No Known Results Summary Purpose eClinicalWorks Submission
[2019-03-27 16:08] LABS: Hematocrit 37.1 % (36.0-45.0); RBC Red Blood Cell Count 4.25 M/uL (3.86-4.86)
[2019-03-27 16:09] LABS: Absolute Lymphocytes (CBC) 1.7 K/uL (0.7-4.9); Basophils % 0.6 % (0-1.3); Eosinophils % 1.6 % (0-4.4); Lymphocytes % 14.8 % (15.3-44.8); MPV 8.2 fL (7.6-11.3); Monocytes % 6.2 % (3.3-12.3)
[2019-03-27 16:11] LABS: Potassium 4.4 mmol/L (3.5-5.1)
--- NOTE | 2019-03-27 17:05 | RAD REPORT ---
EXAM DESCRIPTION: RAD - Foot Left 3 View - 03/27/2019 4:51 pm CLINICAL HISTORY: Left Foot pain FINDINGS: Marked osteoporosis. Destruction involves mid and distal aspect of the second proximal phalanx consistent with osteomyelit is. There appears to be a dislocation of the second middle phalanx.
--- NOTE | 2019-03-27 17:08 | RAD REPORT ---
EXAM DESCRIPTION: RAD - Foot Right 3 View - 03/27/2019 4:52 pm CLINICAL HISTORY: Right foot pain FINDINGS: Marked osteoporosis Cortical irregularity involves the base of the first distal phalanx which may indicate osteomyelitis. The first distal phalanx appears dislocated
--- NOTE | 2019-03-27 17:29 | ER ---
Nurse's Notes [facility] Name: Juana Navarro Age: 58 yrs Sex: Female : 1960 Arrival Date: 03/27/2019 Time: 15:16 Bed 24 Private MD: Diagnosis: Osteomyelitis-Chronic Presentation: 03/27 15:16 Presenting complaint: EMS states: She was supposed to have her right great toe la1 amputated last week but something happened with the insurance and she could not have it, now she ran out of her pain meds and daughter states she was screaming in pain at home. Transition of care: patient was not received from another setting of care. Onset of symptoms was March 27, 2019. Risk Assessment: Do you want to hurt yourself or someone else? Patient reports no desire to harm self or others. Initial Sepsis Screen: Does the patient meet any 2 criteria? No. Patient's initial sepsis screen is negative. Does the patient have a suspected source of infection? No. Patient's initial sepsis screen is negative. Care prior to arrival: None. 15:16 Method Of Arrival: EMS: [facility] la1 15:16 Acuity: DAVID 3 la1 Triage Assessment: 17:57 Pain: Denies pain. mg2 Historical: - Home Meds: 15:30 lisinopril 20 mg Oral tab [Active]; metformin 1,000 mg Oral tr24 2 tabs once daily mg2 [Active]; Plavix 75 mg Oral tab 1 tab once daily [Active]; - PMHx: 15:30 CVA; Diabetes - NIDDM; G Tube; Hypertension; NPO, aspiration; mg2 - Immunization history:: Adult Immunizations up to date. - Social history:: Smoking status: unknown. - Ebola Screening: : No symptoms or risks identified at this time. Screenin:22 Abuse screen: Denies threats or abuse. Denies injuries from another. Nutritional mg2 screening: No deficits noted. Tuberculosis screening: No symptoms or risk factors identified. Fall Risk Secondary diagnosis (15 points) CVA, Mental Status- Overestimates/Forgets Limitations (15 pts.). Assessment: 15:23 General: Appears in no apparent distress. comfortable, Behavior is calm, cooperative. mg2 Neuro: Level of Consciousness is awake, alert, obeys commands, Oriented to person, place, time, situation. Cardiovascular: Capillary refill < 3 seconds Patient's skin is warm and dry. Respiratory: Airway is patent Respiratory effort is even, unlabored, Respiratory pattern is regular, symmetrical. GI: No signs and/or symptoms were reported involving the gastrointestinal system. : No signs and/or symptoms were reported regarding the genitourinary system. EENT: No signs and/or symptoms were reported regarding the EENT system. Musculoskeletal: Circulation, motion, and sensation intact. Capillary refill < 3 seconds. Vital Signs: 15:18 BP 137 / 80; Pulse 101; Resp 20; Pulse Ox 98% on R/A; la1 15:21 Temp 99.4; la1 16:43 BP 133 / 65; Pulse 81; Resp 18; Pulse Ox 97% on R/A; mg2 17:40 Temp 98.9(O); mg2 ED Course: 15:16 Patient arrived in ED. la1 15:17 Triage completed. la1 15:19 Arm band placed on left wrist. la1 15:21 Hunter Arizmendi, RN is Primary Nurse. mg2 15:23 No provider procedures requiring assistance completed. mg2 15:25 Patient has correct armband on for positive identification. mg2 15:26 Initial lab(s) drawn, by me, held in ED. First set of blood cultures drawn by me. jp3 15:30 Inserted saline lock: 22 gauge in right antecubital area, using aseptic technique. mg2 Blood collected. by [employer]. 15:36 Jonathan Ya PA is PHCP. jr8 15:36 Tomas Castillo MD is Attending Physician. jr8 15:37 Warm blanket given. Verbal reassurance given. Pulse ox on. NIBP on. jp3 16:52 XRAY Foot LEFT 3 View In Process Unspecified. EDMS 16:53 XRAY Foot RIGHT 3 View In Process Unspecified. EDMS 17:26 Gold Gallegos MD is Referral Physician. jr8 17:26 Referral Physician role handed off by Gold Gallegos MD jr8 17:26 Gold Gallegos MD is Referral Physician. jr8 17:57 IV discontinued, intact, bleeding controlled, No redness/swelling at site. Pressure mg2 dressing applied. Administered Medications: No medications were administered Outcome: 17:27 Discharge ordered by . jr8 17:57 Discharged to home via wheelchair, with family. mg2 17:57 Condition: stable 17:57 Discharge instructions given to patient, family, Instructed on discharge instructions, follow up and referral plans. Demonstrated understanding of instructions, follow-up care. 17:57 Patient left the ED. mg2 Signatures: Dispatcher [employer] EDMS Jonathan Ya PA PA jr8 Ko Rosales RN RN la1 Hunter Arizmendi RN RN mg2 Crispin Mcgowan jp3 Corrections: (The following items were deleted from the chart) 16:52 16:43 Pulse 81bpm; Resp 18bpm; Pulse Ox 97% RA; mg2 mg2
--- NOTE | 2019-03-27 17:29 | EDPHYS ---
Physician Documentation [facility] Name: Juana Navarro Age: 58 yrs Sex: Female : 1960 Arrival Date: 03/27/2019 Time: 15:16 Bed 24 Private MD: ED Physician Tomas Castillo HPI: 03/27 16:14 This 58 yrs old Female presents to ER via EMS with complaints of Foot Pain. jr8 16:14 The patient presents with pain, that is chronic. The complaints affect the dorsum of jr8 left foot, dorsum of right foot. Onset: The symptoms/episode began/occurred gradually, 2 month(s) ago. Modifying factors: The symptoms are alleviated by nothing. the symptoms are aggravated by movement. Associated signs and symptoms: The patient has no apparent associated signs or symptoms. Severity of symptoms: At their worst the symptoms were moderate, in the emergency department the symptoms are unchanged. It is unknown whether or not the patient has had similar symptoms in the past. The patient has been recently seen by a physician:. Patient recently seen by Dr. Barbuor and Dr. Gallegos for osteomyelitis of the right and left foot. Has been going to wound care and is scheduled for MRI next week to assess stability with possibility of amputation of right great to and left second toe . Historical: - Home Meds: 15:30 lisinopril 20 mg Oral tab [Active]; metformin 1,000 mg Oral tr24 2 tabs once daily mg2 [Active]; Plavix 75 mg Oral tab 1 tab once daily [Active]; - PMHx: 15:30 CVA; Diabetes - NIDDM; G Tube; Hypertension; NPO, aspiration; mg2 - Immunization history:: Adult Immunizations up to date. - Social history:: Smoking status: unknown. - Ebola Screening: : No symptoms or risks identified at this time. ROS: 16:14 Eyes: Negative for injury, pain, redness, and discharge, ENT: Negative for injury, jr8 pain, and discharge, Neck: Negative for injury, pain, and swelling, Cardiovascular: Negative for chest pain, palpitations, and edema, Respiratory: Negative for shortness of breath, cough, wheezing, and pleuritic chest pain, Abdomen/GI: Negative for abdominal pain, nausea, vomiting, diarrhea, and constipation, Back: Negative for injury and pain, Skin: Negative for injury, rash, and discoloration, Neuro: Negative for headache, weakness, numbness, tingling, and seizure. 16:14 MS/extremity: Positive for pain, of the right foot and left foot. Exam: 16:14 Eyes: Pupils equal round and reactive to light, extra-ocular motions intact. Lids and jr8 lashes normal. Conjunctiva and sclera are non-icteric and not injected. Cornea within normal limits. Periorbital areas with no swelling, redness, or edema. ENT: Nares patent. No nasal discharge, no septal abnormalities noted. Tympanic membranes are normal and external auditory canals are clear. Oropharynx with no redness, swelling, or masses, exudates, or evidence of obstruction, uvula midline. Mucous membranes moist. Neck: Trachea midline, no thyromegaly or masses palpated, and no cervical lymphadenopathy. Supple, full range of motion without nuchal rigidity, or vertebral point tenderness. No Meningismus. Cardiovascular: Regular rate and rhythm with a normal S1 and S2. No gallops, murmurs, or rubs. Normal PMI, no JVD. No pulse deficits. Respiratory: Lungs have equal breath sounds bilaterally, clear to auscultation and percussion. No rales, rhonchi or wheezes noted. No increased work of breathing, no retractions or nasal flaring. Abdomen/GI: Soft, non-tender, with normal bowel sounds. No distension or tympany. No guarding or rebound. No evidence of tenderness throughout. Back: No spinal tenderness. No costovertebral tenderness. Full range of motion. Skin: Warm, dry with normal turgor. Normal color with no rashes, no lesions, and no evidence of cellulitis. Neuro: Awake and alert, GCS 15, oriented to person, place, time, and situation. Cranial nerves II-XII grossly intact. Motor strength 5/5 in all extremities. Sensory grossly intact. 16:14 Musculoskeletal/extremity: Extremities: grossly normal except: noted in the right great toe: right great toe has erythema to dorsum of toe without streaking. Pain to touch. No discharge, noted in the left second toe: Patient has open wound with middle phalanx protruding through skin. Necrosis present on bone with erythema . Vital Signs: 15:18 BP 137 / 80; Pulse 101; Resp 20; Pulse Ox 98% on R/A; la1 15:21 Temp 99.4; la1 16:43 BP 133 / 65; Pulse 81; Resp 18; Pulse Ox 97% on R/A; mg2 17:40 Temp 98.9(O); mg2 MDM: 15:39 Patient medically screened. jr8 17:34 Data reviewed: vital signs, nurses notes, lab test result(s), radiologic studies, plain jr8 films. Data interpreted: Pulse oximetry: on room air is 97 %. Interpretation: normal. Counseling: I had a detailed discussion with the patient and/or guardian regarding: the historical points, exam findings, and any diagnostic results supporting the discharge/admit diagnosis, lab results, radiology results, the need for outpatient follow up, a family practitioner, a general surgeon, to return to the emergency department if symptoms worsen or persist or if there are any questions or concerns that arise at home. ED course: Reviewed Recent notes from Dr. Barbour and Dr. Gallegos. Consulted both of them as well. This is a chronic osteomyelitis. Dr. Gallegos stated that patient and family have been missing MRI appointment. That they rescheduled for this Friday and to f/u in clinic on Friday with Dr. Gallegos. Patient has no signs of sepsis or cellulitis at this point. Will have them f/u as instructed. No indication for admission at this time. 03/27 15:39 Order name: CBC with Diff; Complete Time: 16:19 03/27 15:39 Order name: Basic Metabolic Panel; Complete Time: 16:19 03/27 15:39 Order name: XRAY Foot LEFT 3 View; Complete Time: 17:20 03/27 15:39 Order name: Blood Culture Adult (2) 03/27 15:42 Order name: Procalcitonin; Complete Time: 16:35 03/27 15:42 Order name: Lactate; Complete Time: 17:20 03/27 15:42 Order name: XRAY Foot RIGHT 3 View; Complete Time: 17:20 Administered Medications: No medications were administered Disposition: 18:45 Co-signature as Attending Physician, Tomas Castillo MD. Disposition: 03/27/19 17:27 Discharged to Home. Impression: Osteomyelitis - Chronic. - Condition is Stable. - Medication Reconciliation Form, Thank You Letter, Antibiotic Education, Prescription Opioid Use form. - Follow up: Gold Gallegos MD; When: 03/30/2019; Reason: Recheck today's complaints, Continuance of care, Re-evaluation by your physician. Follow up: Gold Gallegos MD; When: 03/30/2019; Reason: Wound Recheck, Recheck today's complaints, Continuance of care, Re-evaluation by your physician. - Problem is new. - Symptoms are unchanged. Signatures: Dispatcher [employer] EDMS Jonathan Ya PA PA jr8 Ko Rosales RN RN la1 Tomas Castillo MD MD gs Hunter Arizmendi RN RN mg2 Corrections: (The following items were deleted from the chart) 17:57 17:27 03/27/2019 17:27 Discharged to Home. Impression: Osteomyelitis - Chronic. mg2 Condition is Stable. Forms are Medication Reconciliation Form, Thank You Letter, Antibiotic Education, Prescription Opioid Use. Follow up: Gold Gallegos; When: 03/30/2019; Reason: Wound Recheck, Recheck today's complaints, Continuance of care, Re-evaluation by your physician. Problem is new. Symptoms are unchanged. jr8
[2019-03-27 19:05] VITALS: BP 133/65; O2SAT 97
[2019-03-27 19:06] VITALS: TEMP 98.9
== END 2019-03-27 17:57 | disposition home or self-care (01) ==
LOC: ER 15:14
DX: E11.69 Type 2 diabetes mellitus with other specified complication (principal); M86.672 Other chronic osteomyelitis, left ankle and foot; M86.671 Other chronic osteomyelitis, right ankle and foot; I10 Essential (primary) hypertension; Z86.73 Personal history of transient ischemic attack (TIA), and cerebral infarction without residual deficits; Z79.01 Long term (current) use of anticoagulants
CPT/HCPCS: 36415; 80048; 83605; 84145; 85025; 87040; 87205; 99284

== ENCOUNTER 2019-04-06 13:03 | Inpatient (IN) | payer MEDICAID ==
--- OUTSIDE RECORDS SUMMARY | 2019-04-06 13:06 | XMS REPORT ---
[...] Status Dosage System Date Date atorvastatin ND 96815458910 20mg Active 1 tablet by mouth at bedtime Pantoprazole ND 18895466566 40 MG Orally Active 1 tablet Sodium Once a day Promethazine HCl ND 38275500755 6.25 MG/5ML NovemberJanuary 23, Active 10 ml as Orally every 6 2018 2019 needed hrs HydrALAZINE HCl ND 55977454416 25 MG Orally Active 1 tablet Three times a with food day Tramadol HCl ND 39821578260 50 MG Orally Active as directed Lisinopril ND 80682928898 10 MG Orally Active 1 tablet Once a day Metformin HCl ND 07510022606 500 MG Orally Active 1 tablet Once a day with a meal Results No Known Results Summary Purpose eClinicalWorks Submission
--- OUTSIDE RECORDS SUMMARY | 2019-04-06 13:06 | XMS REPORT ---
[...] Status Dosage System Date Date Metformin HCl [facility] 11353349361 500 MG Orally Active 1 tablet Twice a day with a meal atorvastatin [facility] 64173509509 20mg oral at Active 1 tablet bedtime HydrALAZINE HCl [facility] 18980838629 25 MG Orally Active 1 tablet Twice a day with food Plavix [facility] 78079765849 75 MG Orally Swetha Active 1 tablet Once a day [address] [facility] 85731776661 40 MG Orally Active 1 tablet Sodium Once a day Results No Known Results Summary Purpose eClinicalWorks Submission
--- OUTSIDE RECORDS SUMMARY | 2019-04-06 13:07 | XMS REPORT ---
[...] Start Date End Date Status Dosage Lisinopril [facility] 70459853469 40 MG Orally Once Active 1 tablet a day Results No Known Results Summary Purpose eClinicalWorks Submission
--- OUTSIDE RECORDS SUMMARY | 2019-04-06 13:07 | XMS REPORT ---
[...] End Status Dosage System Date Date Plavix [facility] 96439666224 75 MG Orally Active 1 tablet Once a day Atorvastatin [facility] 74225474658 20 MG Active TAKE 1 Calcium TABLET BY MOUTH AT BEDTIME Tramadol HCl [facility] 24227474082 50 MG Orally Active as directed HydrALAZINE HCl [facility] 91102858913 25 MG Orally Active 1 tablet Twice a day with food Pantoprazole [facility] 00730157392 40 MG Orally Active 1 tablet Sodium Once a day atorvastatin [facility] 69853811193 20mg oral at Active 1 tablet bedtime Acetaminophen [facility] [address]-79 167 MG/5ML February 25Aug Active 5ml Orally every 2018 17, hrs [address] [facility] 83449914270 10 MG Orally Active 1 tablet Once a day Metformin HCl [facility] 08285733857 500 MG Orally Active 1 tablet Twice a day with a meal Results No Known Results Summary Purpose eClinicalWorks Submission
[2019-04-06] MEDS ORDERED: ONDANSETRON 4 MG/2 ML VIAL IV PRN (16:10)
[2019-04-06] MEDS ORDERED: ONDANSETRON HCL 40 MG/20 ML VIAL IV PRN (16:12)
[2019-04-06] MEDS ORDERED: GLUCAGON 1 MG/VIAL IM PRN (16:18)
[2019-04-06] MEDS ORDERED: D50W 25 GM/50 ML SYRINGE IV PRN (16:18)
[2019-04-06] MEDS: INSULIN -REGULAR HUMAN 50 UNIT/0.5 ML ML SQ SCH ×2 (16:29→20:24)
[2019-04-06] MEDS: GLUCERNA 1.5 CAL 1,000 ML BOT FT SCH ×2 (16:56→20:34)
[2019-04-06 17:00] VITALS: BMI 23.6
[2019-04-06] MEDS: ACETAMINOPHEN 500 MG TAB PO SCH ×2 (17:12→23:39)
[2019-04-06] MEDS: METOPROLOL TAR 50 MG TAB FT SCH (17:12)
--- NOTE | 2019-04-06 17:16 | P.HP ---
Certification for Inpatient Patient admitted to: Inpatient Patient will require the following post-hospital care: Home Health Services Practitioner: I am a practitioner with admitting privileges, knowledge of patient current condition, hospital course, and medical plan of care. Services: Services provided to patient in accordance with Admission requirements found in Title 42 Section 412.3 of the Code of Federal Regulations Patient History Date of Service: 04/06/19 Primary Care Provider: krsiten Reason for admission: Osteomyelitis of the left toe History of Present Illness: Patient is a patient of mine, being seen in the Wound care center. She has been having increased pain. She was refereed to Dr. Gallegos and had an MRI yesterday. showed osteomyelitis of the left foot, please see the report. Dr. Gallegos wanted to admit and proceed with amputation. Called me for admission. Will admit and keep npo after midnight for surgery tomorrow. Allergies No Known Allergies Allergy (Verified 09/05/16 23:23) Home Medications: Glucerna 1.5 Vikas 237 ml FT QID #90 bot 02/10/18 Atorvastatin Calcium [Lipitor*] 20 mg FT BEDTIME #30 tab 11/14/18 Clopidogrel Bisulfate [Plavix*] 75 mg FT DAILY #30 tablet 11/14/18 Collagenase [Santyl Ointment*] 1 appl TOP DAILY #1 tube 11/14/18 Hydralazine [Apresoline*] 25 mg PO BID #60 tab 11/14/18 Lisinopril [Prinivil*] 20 mg FT BID #60 tab 11/14/18 Metformin HCl 1,000 mg FT BID #60 tablet 11/14/18 Metoprolol Tartrate [Lopressor*] 50 mg FT BID 6AM 6PM #60 tab 11/14/18 traMADol HCL [Ultram*] 50 mg FT TID PRN #15 tab 11/14/18 - Past Medical/Surgical History Diabetic: No -: Hx CVA with residual aphasia -: HTN -: Hyperlipidemia -: Neuropathy -: DM -: History of dysphagia now with PEG tube -: Hysterectomy -: PEG tube placement Psychosocial/ Personal History: Patient lives at home. She has several children. She is . - Family History Mother -: Stroke Father -: Heart disease - Social History Smoking Status: Unknown if ever smoked Alcohol use: No CD- Drugs: No Caffeine use: No Place of Residence: Home Review of Systems is unable to be obtained (Patient is not verbal after a stroke.) Physical Examination - Vital Signs Temperature: 97.0 F Blood Pressure: 155/89 Pulse: 82 Respirations: 17 Pulse Ox (%): 97 - Physical Exam General: Alert, In no apparent distress HEENT: Atraumatic, PERRLA, Mucous membr. moist/pink, EOMI, Sclerae nonicteric Neck: Supple, 2+ carotid pulse no bruit, No LAD, Without JVD or thyroid abnormality Respiratory: Clear to auscultation bilaterally, Normal air movement Cardiovascular: Regular rate/rhythm, Normal S1 S2 Gastrointestinal: Normal bowel sounds, No tenderness Musculoskeletal: No tenderness Integumentary: No rashes Neurological: Normal strength at 5/5 x4 extr, Normal tone, Normal affect, Abnormal gait (hemiplegia s/p cva), Abnormal speech Lymphatics: No axilla or inguinal lymphadenopathy Assessment and Plan - Problems (Diagnosis) (1) Osteomyelitis of ankle and foot Current Visit: Yes Status: Acute Plan: will admit. Start on fluids and vancomycin. Will keep npo after midnight. Consult to Dr. Gallegos. Plan for amputation in the am. (2) Diabetes Current Visit: No Status: Acute Plan: will keep her off the metformin. Start iv fluids. Cover her with a mild sliding scale of regular insulin Qualifiers: Diabetes mellitus type: type 2 Diabetes mellitus snf insulin use: without snf use Diabetes mellitus complication status: with circulatory complication Diabetes mellitus complication detail: with peripheral angiopathy without gangrene Qualified Code(s): E11.51 - Type 2 diabetes mellitus with diabetic peripheral angiopathy without gangrene (3) History of CVA with residual deficit Current Visit: No Status: Chronic Plan: Keep on fall risk. Discharge Plan: Home Plan to discharge in: 48 Hours - Advance Directives Does patient have a Living Will: No Does patient have a Durable POA for Healthcare: No - Code Status/Comfort Care Code Status Assessed: No Code Status: Full Code Physician Review: Patient Assessed, Agree with Above Assessment and Plan Critical Care: No Time Spent Managing Pts Care (In Minutes): 45
[2019-04-06] MEDS: LISINOPRIL 20 MG TAB FT SCH (20:33)
[2019-04-06] MEDS: HYDRALAZINE HCL 25 MG TABLET PO SCH (20:33)
[2019-04-06] MEDS: ATORVASTATIN 20 MG TAB FT SCH (20:33)
[2019-04-07] MEDS: NA CHLORIDE 0.9% 1,000 ML IV SCH ×2 (02:10→05:28)
[2019-04-07] MEDS: VANCOMYCIN/NS 1 gm 1 GM/250 ML BAG IV SCH ×2 (02:10→17:31)
[2019-04-07] MEDS: MORPHINE 4 MG/ML SYR IM PRN ×2 (02:29→08:44)
[2019-04-07] MEDS: ACETAMINOPHEN 500 MG TAB PO SCH ×4 (03:47→23:00)
[2019-04-07] MEDS: METOPROLOL TAR 50 MG TAB FT SCH ×2 (05:27→17:32)
[2019-04-07] MEDS: INSULIN -REGULAR HUMAN 50 UNIT/0.5 ML ML SQ SCH ×4 (07:30→21:00)
--- NOTE | 2019-04-07 08:36 | P.PN ---
Subjective Date of Service: 04/07/19 Primary Care Provider: kristen Chief Complaint: Osteomyelitis of the left toe Subjective: No new changes Review of Systems 10-point ROS is otherwise unremarkable Physical Examination - Vital Signs Temperature: 98.4 F Blood Pressure: 151/88 Pulse: 80 Respirations: 15 Pulse Ox (%): 95 - Physical Exam General: Alert, In no apparent distress HEENT: Atraumatic, PERRLA, EOMI Neck: Supple, JVD not distended Respiratory: Clear to auscultation bilaterally, Normal air movement Cardiovascular: Regular rate/rhythm, Normal S1 S2 Gastrointestinal: Normal bowel sounds, No tenderness Musculoskeletal: No tenderness Integumentary: No rashes Neurological: Normal speech, Normal tone, Normal affect Lymphatics: No axilla or inguinal lymphadenopathy Assessment & Plan - Problems (Diagnosis) (1) Osteomyelitis of ankle and foot Current Visit: Yes Status: Acute Plan: will admit. Start on fluids and vancomycin. Will keep npo after midnight. plans for surgery today (2) Diabetes Current Visit: No Status: Acute Plan: will keep her off the metformin. Start iv fluids. Cover her with a mild sliding scale of regular insulin Qualifiers: Diabetes mellitus type: type 2 Diabetes mellitus shift supervisor rn insulin use: without shift supervisor rn use Diabetes mellitus complication status: with circulatory complication Diabetes mellitus complication detail: with peripheral angiopathy without gangrene Qualified Code(s): E11.51 - Type 2 diabetes mellitus with diabetic peripheral angiopathy without gangrene (3) History of CVA with residual deficit Current Visit: No Status: Chronic Plan: Keep on fall risk. Physician Review: Patient Assessed, Agree with Above Assessment and Plan
[2019-04-07] MEDS: HYDRALAZINE HCL 25 MG TABLET PO SCH ×2 (08:42→21:27)
[2019-04-07] MEDS: GLUCERNA 1.5 CAL 1,000 ML BOT FT SCH ×4 (08:42→21:27)
[2019-04-07] MEDS: LISINOPRIL 20 MG TAB FT SCH ×2 (08:43→21:25)
[2019-04-07] MEDS: Pantoprazole (granules) 40 MG/BLIST PACKET PO SCH ×2 (08:43→19:56)
[2019-04-07 09:40] LABS: Absolute Lymphocytes (CBC) 1.4 K/uL (0.7-4.9); Basophils % 0.4 % (0-1.3); Lymphocytes % 14.9 % (15.3-44.8); MPV 7.9 fL (7.6-11.3); RBC Red Blood Cell Count 3.77 M/uL (3.86-4.86)
[2019-04-07 09:49] LABS: Potassium 4.4 mmol/L (3.5-5.1)
--- NOTE | 2019-04-07 10:30 | RAD REPORT ---
EXAM DESCRIPTION: RAD - Chest Single View - 04/07/2019 1:14 am CLINICAL HISTORY: The patient is 58 years old and is Female; picc placement TECHNIQUE: Frontal view of the chest. COMPARISON: No relevant prior studies available. FINDINGS: LUNGS: Unremarkable. No consolidation. PLEURAL SPACE: Unremarkable. No pneumothorax. HEART: Unremarkable. No cardiomegaly. MEDIASTINUM: Unremarkable. BONES/JOINTS: Minimal degenerative change of the spine is present. TUBES, LINES AND DEVICES: A right upper extremity PICC is present with the tip at the SVC/RA ferdinand ction. IMPRESSION: A right upper extremity PICC is present with the tip at the SVC/RA junction. Electronically signed by: Fariba Urena MD 04/07/2019 1:48 AM CDT Due to temporary technical issues with the PACS/Fluency reporting system, reports are being signed by the in house radiologist as a courtesy to ensure prompt reporting. The interpreting radiologist is f ully responsible for the content of the report.
[2019-04-07] MEDS ORDERED: COLLAGENASE 30 GM OINTMENT TOP ONE (10:39)
[2019-04-07] MEDS ORDERED: PROPOFOL 200 MG/20 ML VIAL IV ONE (10:43)
[2019-04-07] MEDS ORDERED: MIDAZOLAM HCL 2 MG/2 ML INJ ONE (10:43)
[2019-04-07] MEDS ORDERED: FENTANYL CITR 100 MCG/2 ML ONE (10:43)
[2019-04-07] MEDS ORDERED: LIDOCAINE 2% MPF 5 ML VIAL ONE (10:43)
--- NOTE | 2019-04-07 11:25 | P.BOP ---
Preoperative diagnosis: right 1st and left second gangraneous toes with destructive osteomyelitis Postoperative diagnosis: bilateral foot cellulitis Primary procedure: 1. Amputation of right 1st toe Secondary procedure: 2. Amputation of left 2nd toe Estimated blood loss: <10cc Specimen: toe x 2 Findings: as above Anesthesia: General Complications: None Drain(s): Other (iodoform packing) Transferred to: Recovery Room Condition: Good
[2019-04-07] MEDS ORDERED: NA CHLORIDE 0.9% 1,000 ML ONE (12:28)
--- NOTE | 2019-04-07 13:54 | CON ---
Date of Consultation: 04/07/2019 Diagnoses: Destructive osteomyelitis of the left second toe with cellulitis and also osteomyelitis o f the right first toe with cellulitis, also cellulitis bilateral feet. History Of Present Illness: This is the case of a female with severe peripheral vascular disease wit h open wounds over her feet. [facility]. I discussed th e case with the primary doctor and recommend the patient to be admitted to the hospital for IV antibi otics and also possible amputation, the family is not sure about it yet. The family thought about it and the primary doctor was able to apparently to admit her last night. They asked me today to see i f I can do the amputation of the involved digits. Most similar information was obtained from the gerri ureña's family. Although, she denies any dysuria, hematochezia, or melena. She stated that she has c hronic pains over the area of the disease. The pain is to the point that she cannot sleep at night. She want those toes amputated. Past Medical History: Past medical problems include hypertension, neuropathy, diabetes, hyperlipidem ia, CVA with aphasia, dysphagia with PEG tube. Past Surgical History: Includes PEG tube placement, hysterectomy. Medications: Reviewed including metformin, apresoline, Plavix, Lipitor, Santyl, Lopressor, tramadol. Family History: Includes stroke, heart disease. Social History: She does not smoke. She does not drink alcohol. Review of Systems: Ten points otherwise unremarkable. Physical Examination: General: Patient is awake and alert. HEENT: Pupils anicteric. Neck: Supple. Chest: Clear. Abdomen: Soft and depressible. No guarding or rebound. Extremities: Over the left foot area and right foot, patient has cellulitis present. Dorsalis pedis pulses very weak, chronic. Over the left second toe, patient have bone sticking out dist al interphalangeal joint is already disconnected, dislocated with the part of the phalanx. Over the right foot, patient also ulceration, osteomyelitis. She has been treated for that before, is still red with open wounds. Laboratory Data: Blood work shows glucose 126. The rest of blood work still pending. Assessment: This is a 58-year-old patient with severe destructive osteomyelitis and cellulitis of bi lateral feet. The benefits, alternatives, and risks of amputation of the left second toe and right f irst toe fully explained to the patient, which include but are not limited to infection, bleeding, da mage to adjacent structures as complication, nonhealing wound, NV, and even . She also understa nds this may not relieve any symptoms. She might need more than one surgical intervention and unders tands that will require check on her the recent blood work since last time from 03/27. She understands she is going to require wound care. She may need higher amputation, but she is not ready to go for any higher amputation at this moment other than the left second toe and the r ight first toe. BERTO/RICHI Voice ID: [id number] Report ID: [id number]
[2019-04-07] MEDS: ATORVASTATIN 20 MG TAB FT SCH (21:25)
[2019-04-07] MEDS ORDERED: MAGNES/ALUMIN/SIMET 30ML UCUP FT PRN (21:31)
--- NOTE | 2019-04-07 23:10 | OP ---
Date of Procedure: 04/07/2019 Surgeon: Gold Gallegos MD Preoperative Diagnosis: Gangrenous toes with diabetes and osteomyelitis of the right first toe and l eft second toe plus bilateral foot cellulitis. Postoperative Diagnosis: Gangrenous toes with diabetes and osteomyelitis of the right first toe and left second toe plus bilateral foot cellulitis. Procedures: 1.Amputation of right first toe. 2.Amputation of left second toe. Estimated Blood Loss: Less than 10 cc. Specimens: Toes x2. Findings: Destructive osteomyelitis with gangrenous changes and cellulitis over both places, right f irst toe area and left second toe area. Anesthesia: General sedation plus local. Drains: Iodoform packing. Indications: This is the case of a female with history of multiple medical problems including diabet es, peripheral vascular disease, comes to us with gangrenous toes. She had this disease for several weeks already, one of the bone was exposed sticking out, completely disconnected from the next joint, sticking through the skin. She took some time to make the decision, but finally she just did, she w as admitted last night urgently and started with antibiotics and conditioning and today booked for boucher rgical intervention. The benefits, alternatives, and risks were fully explained to her and to the charlene becerra. There are 2 daughters who had been for hours explaining back and forth for the last 7 days all the options with benefits, alternatives, and risks including, but not limited to infection, bleeding , damage to adjacent structures, anesthesia complication, nonhealing wound, CA, and even . She also understands this may not relieve any symptoms, she might need more than one surgical interventio n, she understood, signed consent. Description Of Procedure: Patient was brought to the operating room, placed in supine position. Ane sthesia was done without complication. A time-out was called. The areas were previously marked by carmen traore and the patient in the holding room. We proceeded to go to the right toe first since this __. We made an incision on the metatarsophalangeal joint and then took all the way down, cauterized the area, obtained hemostasis, disconnected the metatarsophalangeal joint, removed the toe, excoriate d the head of the metatarsal head, irrigated the area profusely and then packed the area with wet-to- dry dressing. Once we finished that area we went to the left second toe. There were some more drama tic changes in the area with just broken bone already sticking out of the skin. We once again made a n incision in the skin and went to the metatarsophalangeal joint, disconnected toe from that area, re moved the toe, excoriated the cartilage, and the head of the metatarsal area. Irrigated the area pro fusely and then before that we cultured that and then packed the area with wet-to-dry dressing and io doform packing. Local anesthesia was applied at the beginning of this. Profuse irrigation was done over the area and hemostasis. Patient was sent to recovery in stable condition. Disposition: Patient will be transferred to the floor in the service of Dr. Barbour. We would like to see the patient in a week from now [facility]. We are going to do wet-to-dry dress ing daily, continue with p.o. antibiotics. BERTO/RICHI Voice ID: [id number] Report ID: [id number]
[2019-04-08] MEDS: NA CHLORIDE 0.9% 1,000 ML IV SCH ×2 (03:18→09:00)
[2019-04-08] MEDS: ACETAMINOPHEN 500 MG TAB PO SCH ×2 (05:39→11:00)
[2019-04-08] MEDS: METOPROLOL TAR 50 MG TAB FT SCH (05:40)
[2019-04-08] MEDS: INSULIN -REGULAR HUMAN 50 UNIT/0.5 ML ML SQ SCH ×2 (07:30→11:27)
[2019-04-08 07:52] VITALS: O2SAT 100
[2019-04-08] MEDS: HYDRALAZINE HCL 25 MG TABLET PO SCH (08:12)
[2019-04-08] MEDS: Pantoprazole (granules) 40 MG/BLIST PACKET PO SCH (08:12)
[2019-04-08] MEDS: LISINOPRIL 20 MG TAB FT SCH (08:12)
[2019-04-08] MEDS: GLUCERNA 1.5 CAL 1,000 ML BOT FT SCH (08:13)
--- NOTE | 2019-04-08 09:22 | P.DS ---
Admission Date: 04/06/19 Discharge Date: 04/08/19 Primary Care Provider: kristen Disposition: ROUTINE DISCHARGE Discharge Condition: FAIR Reason for Admission: Osteomyelitis of the left toe - Problems (1) Osteomyelitis of ankle and foot Current Visit: Yes Status: Acute (2) Diabetes Current Visit: No Status: Acute Qualifiers: Diabetes mellitus type: type 2 Diabetes mellitus penitentiary insulin use: without penitentiary use Diabetes mellitus complication status: with circulatory complication Diabetes mellitus complication detail: with peripheral angiopathy without gangrene Qualified Code(s): E11.51 - Type 2 diabetes mellitus with diabetic peripheral angiopathy without gangrene (3) History of CVA with residual deficit Current Visit: No Status: Chronic Brief History of Present Illness: Patient is a patient of mine, being seen in the Wound care center. She has been having increased pain. She was refereed to Dr. Gallegos and had an MRI yesterday. showed osteomyelitis of the left foot, please see the report. Dr. Gallegos wanted to admit and proceed with amputation. Called me for admission. Will admit and keep npo after midnight for surgery tomorrow. Hospital Course: Patient was admitted for osteomyelitis. She had amputation of the toes by Dr. Gallegos. She is doing well this morning. Have discussed with Dr. Gallegos. Will discharge home on Bactrim for 2 weeks. Santyl and wet to dry dressing to the wound. Will have her follow up with Dr. Gallegos in the wound care center. She has [facility] who can assist the family. Vital Signs/Physical Exam: Temp Pulse Resp BP Pulse Ox 97.7 F 80 16 140/65 97 04/08/19 04:00 04/08/19 05:40 04/08/19 04:00 04/08/19 05:40 04/08/19 04:00 General: Alert, In no apparent distress HEENT: Atraumatic, PERRLA, EOMI Neck: Supple, JVD not distended Respiratory: Clear to auscultation bilaterally, Normal air movement Cardiovascular: Regular rate/rhythm, Normal S1 S2 Gastrointestinal: Normal bowel sounds, No tenderness Musculoskeletal: No tenderness Integumentary: No rashes Neurological: Normal speech, Normal tone, Normal affect Lymphatics: No axilla or inguinal lymphadenopathy Laboratory Data at Discharge: WBC 9.6 K/uL (4.3-10.9) D 04/07/19 09:22 Hgb 11.1 g/dL (12.0-15.0) L 04/07/19 09:22 Hct 33.0 % (36.0-45.0) L 04/07/19 09:22 Plt Count 395 K/uL (152-406) 04/07/19 09:22 Sodium 140 mmol/L (136-145) 04/07/19 09:22 Potassium 4.4 mmol/L (3.5-5.1) 04/07/19 09:22 BUN 28 mg/dL (7-18) H 04/07/19 09:22 Creatinine 0.79 mg/dL (0.55-1.3) 04/07/19 09:22 Glucose 108 mg/dL (74-106) H 04/07/19 09:22 Home Medications: Glucerna 1.5 Vikas 237 ml FT QID #90 bot 02/10/18 Atorvastatin Calcium [Lipitor*] 20 mg FT BEDTIME #30 tab 11/14/18 Clopidogrel Bisulfate [Plavix*] 75 mg FT DAILY #30 tablet 11/14/18 Collagenase [Santyl Ointment*] 1 appl TOP DAILY #1 tube 11/14/18 Hydralazine [Apresoline*] 25 mg PO BID #60 tab 11/14/18 Lisinopril [Prinivil*] 20 mg FT BID #60 tab 11/14/18 Metformin HCl 1,000 mg FT BID #60 tablet 11/14/18 Metoprolol Tartrate [Lopressor*] 50 mg FT BID 6AM 6PM #60 tab 11/14/18 traMADol HCL [Ultram*] 50 mg FT TID PRN #15 tab 11/14/18 Smz./Tmp. [Bactrim Ds 800 MG/160 MG] 1 each PO BID 14 Days #28 tab 04/08/19 Tramadol HCl [Ultram] 50 mg PO TID PRN #20 tablet 04/08/19 New Medications: Smz./Tmp. [Bactrim Ds 800 MG/160 MG] 1 each PO BID 14 Days #28 tab Tramadol HCl [Ultram] 50 mg PO TID PRN #20 tablet PRN Reason: Pain Scale 5-7 (Moderate) Patient Discharge Instructions: apply santyl to the wound with Wet to dry dressing. Can call the wound care center for further instructions Diet: peg Activity: Fall precautions Followup: Chris Barbour MD [Primary Care Provider] - Gold Gallegos MD [ACTIVE - CAN ADMIT] - 1 Week (follow up with Dr. Gallegos in the wound care center) Time spent managing pt's care (in minutes): 35
[2019-04-08 13:42] VITALS: BP 157/62; TEMP 97.9
== END 2019-04-08 14:20 | disposition home health service (06) | DRG 617 ==
LOC: 2ND 13:03
PROVIDERS: ADMIT Internal Medicine; ATTEND Internal Medicine
PROC: 0Y6S0Z0 Detachment at Left 2nd Toe, Complete, Open Approach (ICD-10-PCS; 2019-04-07)
PROC: 0Y6P0Z0 Detachment at Right 1st Toe, Complete, Open Approach (ICD-10-PCS; principal; 2019-04-07 11:45)
DX: E11.69 Type 2 diabetes mellitus with other specified complication (principal); M86.9 Osteomyelitis, unspecified; E11.52 Type 2 diabetes mellitus with diabetic peripheral angiopathy with gangrene; I96 Gangrene, not elsewhere classified; L03.032 Cellulitis of left toe; L03.031 Cellulitis of right toe; E11.40 Type 2 diabetes mellitus with diabetic neuropathy, unspecified; I69.320 Aphasia following cerebral infarction; E78.5 Hyperlipidemia, unspecified
CPT/HCPCS: 36415; 71045; 80048; 82962; 85025; 87070; 87075; 87077; 87186; 87205; 88305; 88311; 99215; J2250; J2405; J2704; J3010; J3370; J3590; J7030

== ENCOUNTER 2019-04-10 13:48 | Inpatient (IN) | payer MEDICAID ==
--- OUTSIDE RECORDS SUMMARY | 2019-04-10 13:50 | XMS REPORT ---
[...] Start Date End Date Status Dosage Lisinopril [facility] 90766302846 40 MG Orally Once Active 1 tablet a day Results No Known Results Summary Purpose eClinicalWorks Submission
--- OUTSIDE RECORDS SUMMARY | 2019-04-10 13:50 | XMS REPORT ---
[...] Status Dosage System Date Date atorvastatin ND 64077161827 20mg Active 1 tablet by mouth at bedtime Pantoprazole ND 65198767062 40 MG Orally Active 1 tablet Sodium Once a day Promethazine HCl ND 02678042588 6.25 MG/5ML NovemberJanuary 23, Active 10 ml as Orally every 6 2018 2019 needed hrs HydrALAZINE HCl ND 85185678703 25 MG Orally Active 1 tablet Three times a with food day Tramadol HCl ND 03555990302 50 MG Orally Active as directed Lisinopril ND 58599234447 10 MG Orally Active 1 tablet Once a day Metformin HCl ND 01503757733 500 MG Orally Active 1 tablet Once a day with a meal Results No Known Results Summary Purpose eClinicalWorks Submission
--- OUTSIDE RECORDS SUMMARY | 2019-04-10 13:50 | XMS REPORT ---
[...] End Status Dosage System Date Date Plavix [facility] 88486379365 75 MG Orally Active 1 tablet Once a day Atorvastatin [facility] 72906369363 20 MG Active TAKE 1 Calcium TABLET BY MOUTH AT BEDTIME Tramadol HCl [facility] 57418566618 50 MG Orally Active as directed HydrALAZINE HCl [facility] 45736990892 25 MG Orally Active 1 tablet Twice a day with food Pantoprazole [facility] 13576256709 40 MG Orally Active 1 tablet Sodium Once a day atorvastatin [facility] 18124092388 20mg oral at Active 1 tablet bedtime Acetaminophen [facility] [address]-45 167 MG/5ML February 25Aug Active 5ml Orally every 2018 17, hrs 2018 Lisinopril [facility] 20845276320 10 MG Orally Active 1 tablet Once a day Metformin HCl [facility] 60526137905 500 MG Orally Active 1 tablet Twice a day with a meal Results No Known Results Summary Purpose eClinicalWorks Submission
--- OUTSIDE RECORDS SUMMARY | 2019-04-10 13:50 | XMS REPORT ---
[...] Status Dosage System Date Date Metformin HCl [facility] 81470071796 500 MG Orally Active 1 tablet Twice a day with a meal atorvastatin [facility] 75408357245 20mg oral at Active 1 tablet bedtime HydrALAZINE HCl [facility] 57402578817 25 MG Orally Active 1 tablet Twice a day with food Plavix [facility] 94469361548 75 MG Orally Swetha Active 1 tablet Once a day 2018 Pantoprazole [facility] 04238678485 40 MG Orally Active 1 tablet Sodium Once a day Results No Known Results Summary Purpose eClinicalWorks Submission
[2019-04-10 14:15] LABS: Absolute Lymphocytes (CBC) 1.1 K/uL (0.7-4.9); Basophils % 0.3 % (0-1.3); Hematocrit 34.8 % (36.0-45.0); MPV 8.3 fL (7.6-11.3); RBC Red Blood Cell Count 4.05 M/uL (3.86-4.86)
[2019-04-10 14:30] LABS: Albumin 3.1 g/dL (3.4-5.0); Bilirubin Direct 0.1 mg/dL (0-0.2); Bilirubin Total 0.3 mg/dL (0.2-1.0); Potassium 4.3 mmol/L (3.5-5.1); Protein, Total 8.6 g/dL (6.4-8.2)
[2019-04-10 14:40] LABS: Urine Blood 2+ (NEG); Urine Glucose NEGATIVE (NEG); Urine Protein 2+ (NEG); Urine pH 7.5 (5.0-7.0)
[2019-04-10] MEDS ORDERED: ONDANSETRON 4 MG/2 ML VIAL ONE (14:52)
[2019-04-10] MEDS ORDERED: NA CHLORIDE 0.9% 500 ML ONE (14:53)
[2019-04-10 15:14] LABS: Urine Bacteria >50 /HPF (<20); Urine Culture Reflex Order REFLEXED; Urine Mucus 3+ /HPF (NONE SEEN); Urine RBC 20-50 /HPF (NONE SEEN)
[2019-04-10 15:15] LABS: Urine Yeast MANY (NONE SEEN); Urine Yeast with Hyphae PRESENT
--- NOTE | 2019-04-10 15:28 | RAD REPORT ---
EXAM DESCRIPTION: CT - Abdomen Pelvis W Contrast - 04/10/2019 2:56 pm CLINICAL HISTORY: Abdominal pain with vomiting COMPARISON: none. TECHNIQUE: Computed axial tomography of the abdomen pelvis was obtained. 100 cc Isovue-300 was admin istered intravenously. Oral contrast was not requested which limits evaluation of bowel. All CT scans are performed using dose optimization technique as appropriate and may include automated exposure control or mA/KV adjustment according to patient size. FINDINGS: The liver, spleen, pancreas, adrenal and kidneys appear unremarkable. There is no evidence of diverticulitis. A normal appendix Percutaneous gastrostomy tube in good position Shah catheter in place Cholelithiasis with borderline gallbladder distention IMPRESSION: Cholelithiasis with borderline gallbladder distention
[2019-04-10] MEDS ORDERED: CEFTRIAXONE/SWI 1gm 1 GM/10 ML SYR ONE (15:34)
--- NOTE | 2019-04-10 15:43 | EDPHYS ---
Physician Documentation [facility] Name: Juana Navarro Age: 58 yrs Sex: Female : 1960 Arrival Date: 04/10/2019 Time: 13:51 Bed 5 Private MD: ED Physician Francisco J Wolfe HPI: 04/10 13:55 This 58 yrs old Female presents to ER via EMS with complaints of Vomiting. rn 13:55 The patient presents to the emergency department with nausea, vomiting. Onset: The rn symptoms/episode began/occurred at an unknown time. Possible causes: unknown. The symptoms are aggravated by nothing. The symptoms are alleviated by nothing. Severity of symptoms: At their worst the symptoms were moderate in the emergency department the symptoms are unchanged. It is unknown whether or not the patient has had similar symptoms in the past. Family called 911 because patient is vomiting, not holding anything down, is 3 days s/p amputation of 2 toes for osteo, had tube feeds, continues to throw up. . Historical: - Allergies: 13:53 No Known Allergies; bp - Home Meds: 13:53 lisinopril 20 mg Oral tab [Active]; metformin 1,000 mg Oral tr24 2 tabs once daily bp [Active]; Plavix 75 mg Oral tab 1 tab once daily [Active]; - PMHx: 13:53 CVA; Diabetes - NIDDM; G Tube; Hypertension; NPO, aspiration; bp - Immunization history:: Adult Immunizations up to date. - Social history:: Smoking status: Patient/guardian denies using tobacco. - Ebola Screening: : No symptoms or risks identified at this time. - Family history:: not pertinent. - Hospitalizations: : No recent hospitalization is reported. ROS: 13:55 Constitutional: Negative for fever, chills, and weight loss, Eyes: Negative for injury, rn pain, redness, and discharge, Neck: Negative for injury, pain, and swelling, Cardiovascular: Negative for chest pain, palpitations, and edema, Respiratory: Negative for shortness of breath, cough, wheezing, and pleuritic chest pain, Abdomen/GI: + nausea/vomiting MS/Extremity: Negative for injury and deformity, Skin: + healing surgical wounds of feet. Neuro: + weakness Exam: 14:01 Constitutional: Overweight female, sitting up in bed, wounds of feet wrapped rn Head/Face: Normocephalic, atraumatic. ENT: dry MM Cardiovascular: Regular rate and rhythm Respiratory: Lungs have equal breath sounds bilaterally Abdomen/GI: soft, mild right sided abd tenderness, + feeding tube in place with alot of sediment, stoma looks healthy, no discharge or drainage. MS/ Extremity: Pulses equal, no cyanosis. Neurovascular intact. Full, normal range of motion. Equal circumference. Neuro: Awake, alert, difficult to comprehend speech but answers questions and acting appropriate Vital Signs: 14:01 BP 132 / 74; Pulse 86; Resp 14; Temp 97.2; Pulse Ox 95% ; Weight 61.23 kg; bp 14:30 BP 140 / 71; Pulse 78; Resp 16; Pulse Ox 98% ; bp 15:23 BP 130 / 68; Pulse 74; Resp 16; Pulse Ox 98% ; bp 15:40 BP 134 / 71; Pulse 89; Resp 19; Pulse Ox 98% ; aj 16:02 BP 100 / 51; Pulse 79; Resp 16; Pulse Ox 99% ; bp 17:07 BP 119 / 90; Pulse 83; Resp 14; Temp 97.5; Pulse Ox 98% ; bp MDM: 13:51 Patient medically screened. rn 15:38 Differential diagnosis: Nonspecific abd pain, gastritis, cholecystitis, pancreatitis, rn viral gastroenteritis, gastroenteritis. Differential diagnosis: UTI. Data reviewed: vital signs, nurses notes. Counseling: I had a detailed discussion with the patient and/or guardian regarding: the historical points, exam findings, and any diagnostic results supporting the discharge/admit diagnosis, lab results, radiology results, the need for further work-up and treatment in the hospital. Response to treatment: the patient's symptoms have mildly improved after treatment, and as a result, I will admit patient. 15:40 Admission orders: after a detailed discussion of the patient's condition and case, the wedding planning internship orders are written by me. ED course: Pt not tolerating PO, + UTI, unable to take her abx at home, will admit for IV hydration and abx, along with anti-emetics, admitted to Dr. Wilson as Dr. Barbour is out to hospitalist group for the weekend.. 04/10 13:58 Order name: Basic Metabolic Panel; Complete Time: 15: rn 04/10 13:58 Order name: CBC with Diff; Complete Time: : rn 04/10 13:58 Order name: Hepatic Function; Complete Time: 15:07 rn 04/10 13:58 Order name: Lipase; Complete Time: 15: rn 04/10 13:59 Order name: Urine Microscopic Only; Complete Time: 15:31 rn 04/10 14:36 Order name: Urine Dipstick--Ancillary (enter results); Complete Time: 15:07 eb 04/10 13:58 Order name: IV Saline Lock; Complete Time: 14:41 rn 04/10 13:58 Order name: Labs collected and sent; Complete Time: 14:41 rn 04/10 13:58 Order name: CT Abd/Pelvis - IV Contrast Only; Complete Time: 15:31 rn 04/10 13:59 Order name: Urine Dipstick-Ancillary (obtain specimen); Complete Time: 14:41 rn 04/10 15:17 Order name: Urine Culture EDMS Administered Medications: 14:15 Drug: NS 0.9% 500 ml Route: IV; Rate: bolus; Site: right antecubital; bp 15:40 Follow up: Response: No adverse reaction; IV Status: Completed infusion; IV Intake: aj 500ml 14:15 Drug: Zofran 4 mg Route: IVP; Site: right antecubital; bp 15:04 Follow up: Response: No adverse reaction bp 15:36 Drug: Rocephin - (cefTRIAXone) 1 grams Route: IVPB; Infused Over: 30 mins; Site: right aj antecubital; 17:06 Follow up: IV Status: Completed infusion; IV Intake: 20ml bp Disposition: 04/10/19 15:42 Hospitalization ordered by Debby Wilson for Inpatient Admission. Preliminary diagnosis are Vomiting, unspecified, Dehydration, Cholelithiasis, Urinary tract infection, site not specified, Failure of outpatient therapy plan for osteomyelitis and post amputation.. - Bed requested for Telemetry/MedSurg (Inpatient). - Status is Inpatient Admission. bp - Condition is Stable. - Problem is new. - Symptoms have improved. UTI on Admission? Yes Signatures: Dispatcher [employer] EDMS Ruby Kunz RN RN dw Myers, Amanda, RN RN aj Nieto, Roman, MD MD rn Peltier, Brian RN RN bp Corrections: (The following items were deleted from the chart) 16:53 15:42 Hospitalization Ordered by Debby Wilson MD for Inpatient Admission. Preliminary dw diagnosis is Vomiting, unspecified; Dehydration; Cholelithiasis; Urinary tract infection, site not specified; Failure of outpatient therapy plan for osteomyelitis and post amputation.. Bed requested for Telemetry/MedSurg (Inpatient). Status is Inpatient Admission. Condition is Stable. Problem is new. Symptoms have improved. UTI on Admission? Yes. rn 17:10 16:53 04/10/2019 15:42 Hospitalization Ordered by Debby Wilson MD for Inpatient bp Admission. Preliminary diagnosis is Vomiting, unspecified; Dehydration; Cholelithiasis; Urinary tract infection, site not specified; Failure of outpatient therapy plan for osteomyelitis and post amputation.. Bed requested for Telemetry/MedSurg (Inpatient). Status is Inpatient Admission. Condition is Stable. Problem is new. Symptoms have improved. UTI on Admission? Yes. dw
--- NOTE | 2019-04-10 15:43 | ER ---
Nurse's Notes [facility] Name: Juana Navarro Age: 58 yrs Sex: Female : 1960 Arrival Date: 04/10/2019 Time: 13:51 Bed 5 Private MD: Diagnosis: Vomiting, unspecified;Dehydration;Cholelithiasis;Urinary tract infection, site not specified;Failure of outpatient therapy plan for osteomyelitis and post amputation. Presentation: 04/10 13:51 Presenting complaint: EMS states: PER FAMILY, PT NOT TOLERATING TUBE FEEDINGS x3 DAYS bp SINCE RELEASE FROM LATEST TOE AMPUTATION PROCEDURE. Transition of care: patient was not received from another setting of care. Onset of symptoms is unknown. Risk Assessment: Do you want to hurt yourself or someone else? Patient reports no desire to harm self or others. Initial Sepsis Screen: Does the patient meet any 2 criteria? No. Patient's initial sepsis screen is negative. Does the patient have a suspected source of infection? No. Patient's initial sepsis screen is negative. Care prior to arrival: Glucose check: 101. 13:51 Method Of Arrival: EMS: [facility] bp 13:51 Acuity: DAVID 3 bp Triage Assessment: 13:53 General: Appears in no apparent distress. comfortable, Behavior is calm, cooperative. bp Pain: Unable to use pain scale. Does not appear to understand pain scale. EENT: No deficits noted. Neuro: Level of Consciousness is obeys commands, Oriented to none. Cardiovascular: No deficits noted. Respiratory: No deficits noted. Breath sounds are clear bilaterally. GI: Reports intolerance of fluids, intolerance of food. : No signs and/or symptoms were reported regarding the genitourinary system. Derm: Decubitus located on. Musculoskeletal: No deficits noted. Historical: - Allergies: 13:53 No Known Allergies; bp - Home Meds: 13:53 lisinopril 20 mg Oral tab [Active]; metformin 1,000 mg Oral tr24 2 tabs once daily bp [Active]; Plavix 75 mg Oral tab 1 tab once daily [Active]; - PMHx: 13:53 CVA; Diabetes - NIDDM; G Tube; Hypertension; NPO, aspiration; bp - Immunization history:: Adult Immunizations up to date. - Social history:: Smoking status: Patient/guardian denies using tobacco. - Ebola Screening: : No symptoms or risks identified at this time. - Family history:: not pertinent. - Hospitalizations: : No recent hospitalization is reported. Screenin:55 Abuse screen: Denies threats or abuse. Denies injuries from another. Nutritional bp screening: No deficits noted. Tuberculosis screening: No symptoms or risk factors identified. Fall Risk None identified. Assessment: 13:55 General: SEE TRIAGE NOTES. GI: Reports anorexia. bp 14:43 Reassessment: PT TO CT. bp 15:04 Reassessment: PT RETURNED FROM CT. bp 16:02 Reassessment: ADMIT IN PROCESS, PT DX WITH CHOLELITHIASIS. bp 17:05 Reassessment: REPORT TO CJ MATIAS FOR ADMIT. bp Vital Signs: 14:01 BP 132 / 74; Pulse 86; Resp 14; Temp 97.2; Pulse Ox 95% ; Weight 61.23 kg; bp 14:30 BP 140 / 71; Pulse 78; Resp 16; Pulse Ox 98% ; bp 15:23 BP 130 / 68; Pulse 74; Resp 16; Pulse Ox 98% ; bp 15:40 BP 134 / 71; Pulse 89; Resp 19; Pulse Ox 98% ; aj 16:02 BP 100 / 51; Pulse 79; Resp 16; Pulse Ox 99% ; bp 17:07 BP 119 / 90; Pulse 83; Resp 14; Temp 97.5; Pulse Ox 98% ; bp ED Course: 13:51 Patient arrived in ED. bp 13:51 Francisco J Wolfe MD is Attending Physician. rn 13:52 Triage completed. bp 13:55 Patient has correct armband on for positive identification. Bed in low position. Call bp light in reach. Side rails up X2. 14:00 Inserted saline lock: 22 gauge in right forearm, using aseptic technique. Blood bp collected. 14:01 Arm band placed on. bp 14:06 Radiology exam delayed due to lab results not completed at this time. (BUN/Creatinine). bq 14:11 Diego Irizarry, RN is Primary Nurse. bp 14:30 Shah cath inserted, using sterile technique, 18 Fr., by md, balloon inflated, to bp gravity drainage, urine specimen collected. 14:56 CT Abd/Pelvis - IV Contrast Only In Process Unspecified. EDMS 14:56 CT completed. Patient tolerated procedure well. Patient moved back from CT. bq 15:41 Debby Wilson MD is Hospitalizing Provider. rn 17:06 No provider procedures requiring assistance completed. Patient admitted, IV remains in bp place. Administered Medications: 14:15 Drug: NS 0.9% 500 ml Route: IV; Rate: bolus; Site: right antecubital; bp 15:40 Follow up: Response: No adverse reaction; IV Status: Completed infusion; IV Intake: aj 500ml 14:15 Drug: Zofran 4 mg Route: IVP; Site: right antecubital; bp 15:04 Follow up: Response: No adverse reaction bp 15:36 Drug: Rocephin - (cefTRIAXone) 1 grams Route: IVPB; Infused Over: 30 mins; Site: right aj antecubital; 17:06 Follow up: IV Status: Completed infusion; IV Intake: 20ml bp Intake: 15:40 IV: 500ml; Total: 500ml. aj 17:06 IV: 20ml; Total: 520ml. bp Outcome: 15:42 Decision to Hospitalize by Provider. rn 17:06 Admitted to Med/surg accompanied by tech, family with patient, via stretcher, room 404, bp with chart, Report called to CJ MATIAS 17:06 Condition: stable 17:06 Instructed on the need for admit. 17:10 Patient left the ED. bp Signatures: Dispatcher [employer] EDEbonie Knott RN Toshia Ayala Roman, MD MD rn Peltier, Brian, RN RN bp
[2019-04-10] MEDS ORDERED: ONDANSETRON 4 MG/2 ML VIAL IV PRN (17:03)
[2019-04-10 17:43] VITALS: BMI 26.4
--- NOTE | 2019-04-10 17:55 | P.HP ---
Certification for Inpatient Patient admitted to: Inpatient Practitioner: I am a practitioner with admitting privileges, knowledge of patient current condition, hospital course, and medical plan of care. Services: Services provided to patient in accordance with Admission requirements found in Title 42 Section 412.3 of the Code of Federal Regulations Patient History Date of Service: 04/10/19 Primary Care Provider: Dr. Barbour Reason for admission: Intractable nausea/vomiting History of Present Illness: This is a 58-year-old female with history of CVA with residual, diabetes, dysplasia now with G-tube in place, who was recently discharged 3 days ago after 2 toes amputation. Patient is unable to talk after her CVA, family at bedside to help with history. Per family, when patient got home after discharge from the hospital, she was complaining of some nausea and was refusing to lay on her back due to some pain. The day after, she started with vomiting which has gotten progressively worse now is unable to keep anything down. Patient is strictly NPO for the past 1.5 years and only gets feeds through her G-tube. Even with that, she was continuously complaining of nausea and her vomiting was progressively worse. She was therefore brought to the emergency room. In the emergency room, blood pressure was 132/74, heart rate of 86, respirations of 14, afebrile at 97.2 and 95% on room air. Her labs were fairly unremarkable except for sodium of 134. Her abdominal CT showed that her percutaneous G-tube with position. It also showed cholelithiasis with borderline gallbladder distension. In the ER, she received Rocephin, Zofran 500 cc bolus of IV fluids. At the time of my exam, patient was at baseline mentation, unable to lie on her back due to pain but hemodynamically stable. Allergies No Known Allergies Allergy (Verified 09/05/16 23:23) Home Medications: Glucerna 1.5 Vikas 237 ml FT QID #90 bot 02/10/18 Atorvastatin Calcium [Lipitor*] 20 mg FT BEDTIME #30 tab 11/14/18 Collagenase [Santyl Ointment*] 1 appl TOP DAILY #1 tube 11/14/18 Hydralazine [Apresoline*] 25 mg PO BID #60 tab 11/14/18 Lisinopril [Prinivil*] 20 mg FT BID #60 tab 11/14/18 Metformin HCl 1,000 mg FT BID #60 tablet 11/14/18 Metoprolol Tartrate [Lopressor*] 50 mg FT BID 6AM 6PM #60 tab 11/14/18 traMADol HCL [Ultram*] 50 mg FT TID PRN #15 tab 11/14/18 Smz./Tmp. [Bactrim Ds 800 MG/160 MG] 1 each PO BID 14 Days #28 tab 04/08/19 Tramadol HCl [Ultram] 50 mg PO TID PRN #20 tablet 04/08/19 - Past Medical/Surgical History Has patient received pneumonia vaccine in the past: Yes Diabetic: Yes -: Hx CVA with residual aphasia -: HTN -: Hyperlipidemia -: Neuropathy -: DM -: History of dysphagia now with PEG tube -: Hysterectomy -: PEG tube placement Psychosocial/ Personal History: Patient lives at home. She has several children. She is . - Family History Mother -: Stroke Father -: Heart disease - Social History Smoking Status: Never smoker Alcohol use: No CD- Drugs: No Caffeine use: No Place of Residence: Home Review of Systems 10-point ROS is otherwise unremarkable Physical Examination - Vital Signs Temperature: 97.5 F Blood Pressure: 119/90 Pulse: 83 Respirations: 14 - Physical Exam General: Alert, Mild distress, Moderate distress, Other (Baseline mentation, unable to really speak due to history of CVA.) HEENT: Atraumatic, PERRLA, Mucous membr. moist/pink, EOMI, Sclerae nonicteric Neck: Supple, 2+ carotid pulse no bruit, No LAD, Without JVD or thyroid abnormality Respiratory: Clear to auscultation bilaterally, Normal air movement Cardiovascular: Regular rate/rhythm, Normal S1 S2 Gastrointestinal: Normal bowel sounds, No tenderness Integumentary: Rash(es) (Shingles rash noted on right mid back, running around to the front, upper abdomen area. Vesicular rash, painful to touch) - Studies Laboratory Data (last 24 hrs) 04/10/19 14:03: WBC 11.0 H D, Hgb 12.1, Hct 34.8 L, Plt Count 356 04/10/19 14:03: Sodium 134 L, Potassium 4.3, BUN 21 H, Creatinine 0.96, Glucose 106, Total Bilirubin 0.3, AST 12 L, ALT 15, Alkaline Phosphatase 73, Lipase 53 L Assessment and Plan - Problems (Diagnosis) (1) Shingles rash Current Visit: Yes Status: Acute Plan: Patient with a rash consistent with shingles. -Will start Valtrex 1 g t.i.d. to complete a 7 day course via G-tube. -pain control with liquid Tylenol via G tube at this time. -Will use lidocaine patch if further pain control needed -place on contact precautions Qualifiers: Herpes zoster complications: without complications Qualified Code(s): B02.9 - Zoster without complications (2) Intractable nausea and vomiting Current Visit: Yes Status: Acute Plan: This is likely secondary to the shingles verses Bactrim being taken at home. - will symptomatically treat with IV Zofran as needed - strict NPO, hold G-tube feeds at this time as well. - continue IV fluids (3) Cholelithiasis Current Visit: Yes Status: Acute Plan: Will get a abdominal ultrasound - will get general surgery evaluation if needed. Qualifiers: Cholelithiasis location: gallbladder Cholecystitis presence: without cholecystitis Biliary obstruction: without biliary obstruction Qualified Code(s): K80.20 - Calculus of gallbladder without cholecystitis without obstruction (4) Amputation of toe Current Visit: Yes Status: Acute Plan: We will continue IV antibiotics at this time as patient cannot tolerate p.o.. -she is a patient of Dr. Gallegos at the [facility]. We will consult wound care center for continued wound care. Qualifiers: Laterality: left Qualified Code(s): S98.132A - Complete traumatic amputation of one left lesser toe, initial encounter (5) Diabetes Current Visit: No Status: Acute Plan: Accu-Cheks and mild sliding scale insulin. Will monitor and adjust as needed Qualifiers: Diabetes mellitus type: type 2 Diabetes mellitus prison librarian insulin use: without senior living use Diabetes mellitus complication status: with circulatory complication Diabetes mellitus complication detail: with peripheral angiopathy without gangrene Qualified Code(s): E11.51 - Type 2 diabetes mellitus with diabetic peripheral angiopathy without gangrene (6) Dysphagia Current Visit: No Status: Chronic Plan: Status post G tube placement Qualifiers: Dysphagia type: unspecified Qualified Code(s): R13.10 - Dysphagia, unspecified (7) PEG (percutaneous endoscopic gastrostomy) status Current Visit: No Status: Chronic Plan: Stable. CT scan of the abdomen shows G tube in good position (8) UTI (urinary tract infection) Current Visit: Yes Status: Acute Plan: Will continue IV antibiotics at this time. Pending urine cultures. Will follow up on cultures and adjust antibiotics as needed Qualifiers: Urinary tract infection type: acute cystitis Hematuria presence: without hematuria Qualified Code(s): N30.00 - Acute cystitis without hematuria (9) Expressive aphasia Onset Date: 02/03/18 Current Visit: No Status: Chronic (10) History of CVA with residual deficit Current Visit: No Status: Chronic Plan: Stable, at baseline (11) Hyperlipidemia Current Visit: No Status: Chronic Qualifiers: Hyperlipidemia type: unspecified Qualified Code(s): E78.5 - Hyperlipidemia , unspecified (12) Hypertension Onset Date: 02/03/18 Current Visit: No Status: Chronic Qualifiers: Hypertension type: essential hypertension Qualified Code(s): I10 - Essential (primary) hypertension - Plan DVT prophylaxis: Lovenox GI prophylaxis: Protonix Diet: NPO, hold G-tube feeds at this time Disposition: Pending symptomatic improvement. - Advance Directives Does patient have a Living Will: No Does patient have a Durable POA for Healthcare: No Time Spent Managing Pts Care (In Minutes): 55
[2019-04-10] MEDS ORDERED: ACETAMINOPHEN 160 MG/5 ML UCUP FT PRN (18:06)
[2019-04-10] MEDS: LIDOCAINE 5% PATCH TD PRN (18:27)
--- NOTE | 2019-04-10 20:11 | P.CNS ---
Date of Consult: 04/10/19 PC: This 58-year-old female presents emergency room with nausea and vomiting. HPC: Patient has had a stroke a number of years ago. She has a permanent G- tube. She does not take orally and is totally dependent on her G-tube. Apparently began to have nausea and vomiting. As well as some right upper quadrant pain. PMH: Diabetes, coronary artery disease PSHx: Most recently had amputation of 2 toes on her foot. G-tube placement. SOC: No known allergies SYS REVIEW: Patient appears to understand conversation, has however considerable dysarthria. O/E awake alert stable at the moment HEENT: Not jaundiced Chest: Chest movement equal bilateral ABD: She is tender in the right upper quadrant LOCO: Intact DATA: CT scan demonstrates impressive amount of stones in the gallbladder with mild inflammation. IMPRESSION: Cholecystitis with cholelithiasis PLAN: I have discussed with the patient briefly the option of having surgery. Her family will be here tomorrow. I will make her NPO at midnight, at home with conversation with her and her family in the morning.
[2019-04-10] MEDS: MORPHINE 2 MG/ML SYR IV PRN (20:23)
[2019-04-10] MEDS: VALACYCLOVIR 500 MG TAB FT SCH (20:24)
[2019-04-10] MEDS: NA CHLORIDE 0.9% 1,000 ML IV SCH (20:24)
[2019-04-10] MEDS: CEFTRIAXONE/SWI 1gm 1 GM/10 ML SYR IVP SCH (20:24)
[2019-04-10] MEDS: VANCOMYCIN 1.25 GM in NA CHLORIDE 0.9% 250 ML IVPB SCH (20:25)
[2019-04-11] MEDS: MORPHINE 2 MG/ML SYR IV PRN ×5 (02:48→22:31)
[2019-04-11 05:46] LABS: Absolute Lymphocytes (CBC) 1.6 K/uL (0.7-4.9); Basophils % 0.5 % (0-1.3); Hematocrit 32.5 % (36.0-45.0); Lymphocytes % 16.1 % (15.3-44.8); MPV 8.4 fL (7.6-11.3); RBC Red Blood Cell Count 3.71 M/uL (3.86-4.86)
[2019-04-11 06:01] LABS: Albumin 2.7 g/dL (3.4-5.0); Bilirubin Total 0.3 mg/dL (0.2-1.0); Potassium 4.2 mmol/L (3.5-5.1)
[2019-04-11] MEDS: VALACYCLOVIR 500 MG TAB FT SCH ×3 (08:19→20:05)
[2019-04-11] MEDS: CEFTRIAXONE/SWI 1gm 1 GM/10 ML SYR IVP SCH ×2 (08:19→20:05)
[2019-04-11] MEDS: NA CHLORIDE 0.9% 1,000 ML IV SCH ×3 (08:20→21:40)
[2019-04-11] MEDS: COLLAGENASE 30 GM OINTMENT TOP SCH (08:20)
--- NOTE | 2019-04-11 12:41 | RAD REPORT ---
EXAM DESCRIPTION: US - Abdomen Exam Complete - 04/10/2019 10:26 pm CLINICAL HISTORY: Abdominal pain COMPARISON: CT study April 10 FINDINGS: Exam has significant limitation. Patient has altered mental status limiting ability to industrial cook perate with the examination for breath-holding. Feeding tube with bandaging of the abdomen also limit s access. Gallbladder size is normal. Multiple 1 centimeter or less mobile gallstones are identified. No wall t hickening or pericholecystic fluid. Common bile duct is normal with no common duct stone identified. Liver size is normal, and there is no focal liver lesion identifiable. Doppler evaluation shows remington l flow direction and velocity of the portal vein. Spleen is partially obscured but grossly normal. T he pancreas is obscured by bowel. No hydronephrosis or mass of the right kidney. Left kidney is too obscured by bowel to get adequate a ssessment. Aorta is normal is size. No ascites or bulky lymphadenopathy. No IVC abnormality identifiable. IMPRESSION: Multi stone cholelithiasis without cholecystitis findings. No biliary tree abnormality. No liver or right kidney abnormality. Pancreas is fully obscured by bowel. The spleen and left kidney are too obscured by bowel to allow op timal assessment. Earlier CT study showed no pancreatic, splenic or left kidney abnormality.
--- NOTE | 2019-04-11 13:04 | P.PN ---
Subjective Date of Service: 04/11/19 Primary Care Provider: Dr. Barbour (we are covering) Chief Complaint: Intractable nausea/vomiting Subjective: Improving Patient seen and examined at bedside. Daughters and at bedside. Chart reviewed and case discussed with nursing staff. Patient continues to complain of nausea and right upper quadrant pain. She is also complaining of back pain, unable to lie flat on her back with a rash is. Review of Systems 10-point ROS is otherwise unremarkable Physical Examination - Vital Signs Temperature: 97.8 F Blood Pressure: 136/72 Pulse: 86 Respirations: 14 Pulse Ox (%): 96 - Physical Exam General: Alert, Oriented x3, Mild distress, Other (Aphasic) HEENT: Atraumatic, PERRLA, EOMI Neck: Supple, JVD not distended Respiratory: Clear to auscultation bilaterally, Normal air movement Cardiovascular: Regular rate/rhythm, Normal S1 S2 Gastrointestinal: Normal bowel sounds, No tenderness Musculoskeletal: No tenderness Integumentary: Rash(es) (Shingles rash) Neurological: Normal affect, Abnormal speech (At baseline) - Studies Laboratory Data (last 24 hrs) 04/10/19 14:03: WBC 11.0 H D, Hgb 12.1, Hct 34.8 L, Plt Count 356 04/10/19 14:03: Sodium 134 L, Potassium 4.3, BUN 21 H, Creatinine 0.96, Glucose 106, Total Bilirubin 0.3, AST 12 L, ALT 15, Alkaline Phosphatase 73, Lipase 53 L Assessment And Plan - Current Problems (Diagnosis) (1) Shingles rash Current Visit: Yes Status: Acute Plan: Patient with a rash consistent with shingles. -continue Valtrex 1 g t.i.d. to complete a 7 day course via G-tube. -pain control with liquid Tylenol via G tube at this time. -Will use lidocaine patch if further pain control needed -place on contact precautions Qualifiers: Herpes zoster complications: without complications Qualified Code(s): B02.9 - Zoster without complications (2) Intractable nausea and vomiting Current Visit: Yes Status: Acute Plan: This is likely secondary to the shingles verses Bactrim being taken at home plus cholelithiasis - will symptomatically treat with IV Zofran as needed - strict NPO, hold G-tube feeds at this time as well. - continue IV fluids (3) Cholelithiasis Current Visit: Yes Status: Acute Plan: Abdominal ultrasound with multi stone cholelithiasis without cholecystitis. - general surgery consulted, recommendations appreciated. Anticipate surgery tomorrow if family agreeable. - continue pain control - continue to keep NPO/hold G-tube feeds Qualifiers: Cholelithiasis location: gallbladder Cholecystitis presence: without cholecystitis Biliary obstruction: without biliary obstruction Qualified Code(s): K80.20 - Calculus of gallbladder without cholecystitis without obstruction (4) Amputation of toe Current Visit: Yes Status: Acute Plan: We will continue IV antibiotics at this time as patient cannot tolerate p.o.. -she is a patient of Dr. Gallegos at the [facility]. We will consult wound care center for continued wound care. Qualifiers: Laterality: left Qualified Code(s): S98.132A - Complete traumatic amputation of one left lesser toe, initial encounter (5) Diabetes Current Visit: No Status: Acute Plan: Accu-Cheks and mild sliding scale insulin. Will monitor and adjust as needed Qualifiers: Diabetes mellitus type: type 2 Diabetes mellitus long-term insulin use: without terminal operations manager use Diabetes mellitus complication status: with circulatory complication Diabetes mellitus complication detail: with peripheral angiopathy without gangrene Qualified Code(s): E11.51 - Type 2 diabetes mellitus with diabetic peripheral angiopathy without gangrene (6) Dysphagia Current Visit: No Status: Chronic Plan: Status post G tube placement Qualifiers: Dysphagia type: unspecified Qualified Code(s): R13.10 - Dysphagia, unspecified (7) PEG (percutaneous endoscopic gastrostomy) status Current Visit: No Status: Chronic Plan: Stable. CT scan of the abdomen shows G tube in good position (8) UTI (urinary tract infection) Current Visit: Yes Status: Acute Plan: Will continue IV antibiotics at this time. Pending urine cultures. Will follow up on cultures and adjust antibiotics as needed Qualifiers: Urinary tract infection type: acute cystitis Hematuria presence: without hematuria Qualified Code(s): N30.00 - Acute cystitis without hematuria (9) Expressive aphasia Onset Date: 02/03/18 Current Visit: No Status: Chronic (10) History of CVA with residual deficit Current Visit: No Status: Chronic Plan: Stable, at baseline (11) Hyperlipidemia Current Visit: No Status: Chronic Qualifiers: Hyperlipidemia type: unspecified Qualified Code(s): E78.5 - Hyperlipidemia , unspecified (12) Hypertension Onset Date: 02/03/18 Current Visit: No Status: Chronic Qualifiers: Hypertension type: essential hypertension Qualified Code(s): I10 - Essential (primary) hypertension - Plan DVT prophylaxis: Lovenox GI prophylaxis: Protonix Diet: NPO, hold G-tube feeds at this time Disposition: Pending symptomatic improvement. Possible surgery for gallbladder tomorrow.
[2019-04-11] MEDS: LIDOCAINE 5% PATCH TD PRN (14:50)
[2019-04-11] MEDS ORDERED: D50W 25 GM/50 ML SYRINGE IV ONE (19:00)
[2019-04-11] MEDS: VANCOMYCIN 1.25 GM in NA CHLORIDE 0.9% 250 ML IVPB SCH (20:06)
[2019-04-12] MEDS: NA CHLORIDE 0.9% 1,000 ML IV SCH ×2 (02:20→11:03)
[2019-04-12] MEDS: MORPHINE 2 MG/ML SYR IV PRN ×2 (04:12→09:07)
[2019-04-12 04:28] LABS: Absolute Lymphocytes (CBC) 1.4 K/uL (0.7-4.9); Basophils % 0.7 % (0-1.3); Lymphocytes % 15.4 % (15.3-44.8); MPV 8.3 fL (7.6-11.3)
[2019-04-12 04:34] LABS: ALT/SGPT 11 U/L (12-78); AST/SGOT 9 U/L (15-37); Albumin 2.5 g/dL (3.4-5.0); Alkaline Phosphatase 62 U/L (45-117); BUN Blood Urea Nitrogen 11 mg/dL (7-18); Bicarbonate 24 mmol/L (21-32); Bilirubin Total 0.3 mg/dL (0.2-1.0); Glucose Level 74 mg/dL (74-106); Potassium 3.9 mmol/L (3.5-5.1); Protein, Total 7.4 g/dL (6.4-8.2); Sodium Level 138 mmol/L (136-145)
[2019-04-12] MEDS: CEFTRIAXONE/SWI 1gm 1 GM/10 ML SYR IVP SCH ×2 (08:51→21:40)
[2019-04-12] MEDS: VALACYCLOVIR 500 MG TAB FT SCH ×3 (08:51→21:46)
[2019-04-12] MEDS: COLLAGENASE 30 GM OINTMENT TOP SCH (09:00)
[2019-04-12] MEDS: D5 0.45 NS 1,000 ML IV SCH (11:23)
[2019-04-12] MEDS ORDERED: NA CHLORIDE 0.9% 1,000 ML ONE ×2 (13:17→15:44)
--- NOTE | 2019-04-12 13:35 | P.PN ---
Subjective Date of Service: 04/12/19 Primary Care Provider: Dr. Barbour (we are covering) Chief Complaint: Intractable nausea/vomiting Subjective: No new changes (going to surgery.) Review of Systems 10-point ROS is otherwise unremarkable ENT: Mouth Pain (states her teeth hurt. ) Physical Examination - Vital Signs Temperature: 98.1 F Blood Pressure: 149/63 Pulse: 81 Respirations: 16 Pulse Ox (%): 98 - Physical Exam General: Alert, In no apparent distress HEENT: Atraumatic, PERRLA, EOMI Neck: Supple, JVD not distended Respiratory: Clear to auscultation bilaterally, Normal air movement Cardiovascular: Regular rate/rhythm, Normal S1 S2 Gastrointestinal: Normal bowel sounds, No tenderness Musculoskeletal: No tenderness Integumentary: No rashes Neurological: Normal speech, Normal tone, Normal affect Lymphatics: No axilla or inguinal lymphadenopathy - Studies Microbiology Data (last 24 hrs): 04/10/19 14:27 Clean Catch Urine [place] Count - Final >100,000 CFU/ML. 04/10/19 14:27 Clean Catch Urine - Final Assessment & Plan - Problems (Diagnosis) (1) Cholelithiasis Current Visit: Yes Status: Acute Plan: about to be taken to surgery with Dr. Rodriguez. Qualifiers: Cholelithiasis location: gallbladder Cholecystitis presence: without cholecystitis Biliary obstruction: without biliary obstruction Qualified Code(s): K80.20 - Calculus of gallbladder without cholecystitis without obstruction (2) Shingles rash Current Visit: Yes Status: Acute Plan: will start her on valcyclovir after surgery. Qualifiers: Herpes zoster complications: without complications Qualified Code(s): B02.9 - Zoster without complications (3) History of CVA with residual deficit Current Visit: No Status: Chronic Plan: Keep on fall precautions. Will continue current medications. (4) Amputation of toe Current Visit: Yes Status: Chronic Plan: s/p amputation on last admission. Continue dressing changes. Qualifiers: Laterality: left Qualified Code(s): S98.132A - Complete traumatic amputation of one left lesser toe, initial encounter Discharge Plan: Home Plan to discharge in: 48 Hours - Code Status/Comfort Care Code Status Assessed: No Critical Care: No Time Spent Managing Pts Care (In Minutes): 25
[2019-04-12] MEDS ORDERED: FENTANYL CITR 100 MCG/2 ML ONE (13:55)
[2019-04-12] MEDS ORDERED: PROPOFOL 200 MG/20 ML VIAL IV ONE (13:55)
[2019-04-12] MEDS ORDERED: LIDOCAINE 2% MPF 5 ML VIAL ONE (13:56)
[2019-04-12] MEDS ORDERED: MIDAZOLAM HCL 2 MG/2 ML INJ ONE (13:56)
[2019-04-12] MEDS ORDERED: ONDANSETRON 4 MG/2 ML VIAL ONE (13:57)
[2019-04-12] MEDS ORDERED: ROCURONIUM 50 MG/5 ML VIAL IV ONE (13:58)
[2019-04-12] MEDS ORDERED: GLYCOPYRROLATE 0.2 MG/ML SYR ONE (14:39)
[2019-04-12] MEDS ORDERED: EPHEDRINE SULF 50 MG/ML VIAL ONE (14:39)
[2019-04-12] MEDS ORDERED: Phenylephrine HCl 10 MG/ML 1 ML VIAL ONE (14:44)
--- NOTE | 2019-04-12 15:42 | P.OP ---
Preoperative diagnosis: Cholecystitis with cholelithiasis Postoperative diagnosis: The same Primary procedure: Laparoscopic cholecystectomy Secondary procedure: Cholangiogram Anesthesia: General Estimated blood loss: Less than 20 cc Specimen: 1 gallbladder and contents Findings: Distended and chronically inflamed gallbladder with multiple stones Operative Technique: The patient is brought to the operating room and placed supine on the table. After the induction of adequate general endotracheal anesthesia, the area of the abdomen was prepped with a DuraPrep solution, and she was draped in usual aseptic manner. A subumbilical incision was made. This brought down through skin and subcutaneous tissue. The Visiport was then used to enter the peritoneal cavity and created pneumoperitoneum to approximately 12 mm of mercury. Under direct vision a 5 mm trocar was placed in the upper midline, and 2 other 5 mm trocars on the right lateral side of the abdomen. The patient was then placed in reverse Trendelenburg. The table was turned to the left. We could visualize the right upper quadrant. We could see a chronically inflamed and distended gallbladder in that area. It was necessary to aspirate the contents of the gallbladder as we could not easily get a grasper onto the fundus. The contents of the gallbladder were aspirated. A grasper was now placed on the fundus. Another 1 placed down by Heather's pouch. Applying gentle dissection we will to expose the full gallbladder. We could see there was chronic inflammation as well as an acute component with some edema around the Heather's pouch area. The cystic duct and artery were isolated. A clip was placed between the gallbladder and the cystic duct. An opening was made into the cystic duct through which we obtained a cholangiogram. The cholangiogram demonstrated good flow contrast into the duodenum. It also showed and anatomical variation with a low entry point on to the common bile duct. There was good flow contrast into the duodenum. No filling defects were seen. At this point the catheter was removed. Clips were placed on the distal portion of the cystic duct. The cystic duct was now fully transected. Using electro cautery Falcon coagulate the cystic artery. The gallbladder was now dissected free from the liver bed, placed into an Endo-Catch, and brought out through the umbilical trocar site. There was a considerable amount of stones in detritus inside the gallbladder that we could palpate. At this point attention was turned towards the peritoneal cavity. We visualized the G-tube using good position with no problems. There are some adhesions to the midline in the upper abdomen. The umbilical trocar site was approximated using the Endo Close and 2 absorbable sutures. Once again we checked the right upper quadrant to ensure adequate hemostasis. The anterior abdominal wall was TA PP blocked with 0.25% Marcaine. At this point the pneumoperitoneum was collapsed, the trocars removed, the sutures tied, and shari were applied to the skin. She was stable when sent to the recovery room. Needle sponge instrument count were correct. No drains were placed. Complications: None Transferred to: Recovery Room Condition: Good
--- NOTE | 2019-04-12 18:32 | RAD REPORT ---
EXAM DESCRIPTION: RADCholangiogram Oper-Xray Or04/12/2019 6:12 pm CLINICAL HISTORY: Abdominal pain FINDINGS: The examination was performed by Dr. Burgos. The cystic duct was cannulated and contrast administered. Contrast flowed into the duodenum. The biliary tree is normal caliber without a filling defect seen. Fluoroscopy time 0.1 minute .6 fluoroscopic spot images obtained
[2019-04-12] MEDS: VANCOMYCIN 1.25 GM in NA CHLORIDE 0.9% 250 ML IVPB SCH (21:47)
[2019-04-13] MEDS: MORPHINE 2 MG/ML SYR IV PRN ×3 (01:35→09:56)
[2019-04-13 04:34] LABS: Absolute Lymphocytes (CBC) 1.6 K/uL (0.7-4.9); Basophils % 0.3 % (0-1.3); Hematocrit 30.8 % (36.0-45.0); Lymphocytes % 10.5 % (15.3-44.8); MPV 7.9 fL (7.6-11.3)
[2019-04-13 04:56] LABS: Albumin 2.4 g/dL (3.4-5.0); Bilirubin Total 0.3 mg/dL (0.2-1.0); Potassium 3.5 mmol/L (3.5-5.1); Protein, Total 7.2 g/dL (6.4-8.2)
[2019-04-13] MEDS: D5 0.45 NS 1,000 ML IV SCH ×2 (05:44→14:20)
[2019-04-13] MEDS: CEFTRIAXONE/SWI 1gm 1 GM/10 ML SYR IVP SCH (08:04)
[2019-04-13] MEDS: VALACYCLOVIR 500 MG TAB FT SCH ×3 (08:04→22:53)
[2019-04-13] MEDS: COLLAGENASE 30 GM OINTMENT TOP SCH (09:56)
--- NOTE | 2019-04-13 10:34 | P.PN ---
Subjective Date of Service: 04/13/19 Primary Care Provider: Dr. Barbour (we are covering) Chief Complaint: Intractable nausea/vomiting Subjective: No new changes Review of Systems is unable to be obtained Physical Examination - Vital Signs Temperature: 97.2 F Blood Pressure: 137/61 Pulse: 82 Respirations: 14 Pulse Ox (%): 96 - Physical Exam General: Alert (Pt has chronic hemiplegia. cannot verbalise), In no apparent distress HEENT: Atraumatic, PERRLA, EOMI Neck: Supple, JVD not distended Respiratory: Clear to auscultation bilaterally, Normal air movement Cardiovascular: Regular rate/rhythm, Normal S1 S2 Gastrointestinal: Normal bowel sounds, No tenderness Musculoskeletal: No tenderness Integumentary: No rashes Neurological: Normal speech, Normal tone, Normal affect Lymphatics: No axilla or inguinal lymphadenopathy - Studies Microbiology Data (last 24 hrs): 04/10/19 14:27 Clean Catch Urine [place] Count - Final >100,000 CFU/ML. 04/10/19 14:27 Clean Catch Urine - Final Assessment & Plan - Problems (Diagnosis) (1) Cholelithiasis Current Visit: Yes Status: Acute Plan: s/p cholecystectomy patient is stable. . Qualifiers: Cholelithiasis location: gallbladder Cholecystitis presence: without cholecystitis Biliary obstruction: without biliary obstruction Qualified Code(s): K80.20 - Calculus of gallbladder without cholecystitis without obstruction (2) Shingles rash Current Visit: Yes Status: Acute Plan: will start her on valcyclovir after surgery. Her rash is improving. Qualifiers: Herpes zoster complications: without complications Qualified Code(s): B02.9 - Zoster without complications (3) History of CVA with residual deficit Current Visit: No Status: Chronic Plan: Keep on fall precautions. Have PT start working with her today. Will see how she does. This will give her a day to recover from surgery. . (4) Amputation of toe Current Visit: Yes Status: Chronic Plan: s/p amputation on last admission. Continue dressing changes. Will hold the antibiotics. may consider doxycylcine Qualifiers: Laterality: left Qualified Code(s): S98.132A - Complete traumatic amputation of one left lesser toe, initial encounter Discharge Plan: Home Plan to discharge in: 24 Hours - Code Status/Comfort Care Code Status Assessed: No Physician Review: Patient Assessed, Agree with Above Assessment and Plan Critical Care: No Time Spent Managing Pts Care (In Minutes): 25
[2019-04-13] MEDS: GLUCERNA 1.5 CAL 1,000 ML BOT FT SCH ×2 (14:02→22:00)
--- NOTE | 2019-04-13 15:27 | P.PN ---
Date of Service: 04/13/19 S: Patient appears to indicate that she is doing well that better today. Is not in any acute distress. O: Clinically patient appears to much improved, incisions are clean A: Surgically stable P: Patient may be discharged when patient has met medical criteria. She may have her shari removed at home by the visiting nurses in 10 days time. Should there be any questions or problems there free to call my office. The family is content with this plan.
[2019-04-13 23:09] VITALS: O2SAT 95
[2019-04-14] MEDS: D5 0.45 NS 1,000 ML IV SCH (04:19)
[2019-04-14] MEDS: COLLAGENASE 30 GM OINTMENT TOP SCH (09:00)
[2019-04-14] MEDS: VALACYCLOVIR 500 MG TAB FT SCH (09:33)
[2019-04-14] MEDS: GLUCERNA 1.5 CAL 1,000 ML BOT FT SCH (09:33)
--- NOTE | 2019-04-14 10:03 | P.DS ---
Admission Date: 04/10/19 Discharge Date: 04/14/19 Primary Care Provider: Dr. Barbour (we are covering) Disposition: ROUTINE DISCHARGE Discharge Condition: GOOD Reason for Admission: Intractable nausea/vomiting - Problems (1) Cholelithiasis Current Visit: Yes Status: Acute Qualifiers: Cholelithiasis location: gallbladder Cholecystitis presence: without cholecystitis Biliary obstruction: without biliary obstruction Qualified Code(s): K80.20 - Calculus of gallbladder without cholecystitis without obstruction (2) Shingles rash Current Visit: Yes Status: Acute Qualifiers: Herpes zoster complications: without complications Qualified Code(s): B02.9 - Zoster without complications (3) History of CVA with residual deficit Current Visit: No Status: Chronic (4) Amputation of toe Current Visit: Yes Status: Chronic Qualifiers: Laterality: left Qualified Code(s): S98.132A - Complete traumatic amputation of one left lesser toe, initial encounter Brief History of Present Illness: Patient admitted by the hospitalist for abdominal pain. Found to have gallstones. Please see the hospitalist Hospital Course: Patient was admitted. Taken to surgery for a cholecystecomy by Dr. Burgos. Was started on valcyclovir for a rash on her back. D/c the antibioitics from last admission as they were starting some abdominal pain. Though this may have been the gallstones. The patient is doing well. Will discharge her home if ok with Dr. Burgos. Will have her follow up with me and Dr. Burgos. Vital Signs/Physical Exam: Temp Pulse Resp BP Pulse Ox 97.5 F 80 16 143/68 H 95 04/14/19 04:00 04/14/19 04:00 04/14/19 04:00 04/14/19 04:00 04/14/19 04:00 General: Alert, In no apparent distress HEENT: Atraumatic, PERRLA, EOMI Neck: Supple, JVD not distended Respiratory: Clear to auscultation bilaterally, Normal air movement Cardiovascular: Regular rate/rhythm, Normal S1 S2 Gastrointestinal: Normal bowel sounds, No tenderness Musculoskeletal: No tenderness Integumentary: No rashes Neurological: Normal speech, Normal tone, Normal affect Lymphatics: No axilla or inguinal lymphadenopathy Laboratory Data at Discharge: WBC 15.5 K/uL (4.3-10.9) H D 04/13/19 04:27 Hgb 10.4 g/dL (12.0-15.0) L 04/13/19 04:27 Hct 30.8 % (36.0-45.0) L 04/13/19 04:27 Plt Count 333 K/uL (152-406) 04/13/19 04:27 Sodium 137 mmol/L (136-145) 04/13/19 04:27 Potassium 3.5 mmol/L (3.5-5.1) 04/13/19 04:27 BUN 9 mg/dL (7-18) 04/13/19 04:27 Creatinine 0.73 mg/dL (0.55-1.3) 04/13/19 04:27 Glucose 111 mg/dL (74-106) H 04/13/19 04:27 Total Bilirubin 0.3 mg/dL (0.2-1.0) 04/13/19 04:27 AST 34 U/L (15-37) 04/13/19 04:27 ALT 22 U/L (12-78) 04/13/19 04:27 Alkaline Phosphatase 58 U/L (45-117) 04/13/19 04:27 Lipase 53 U/L (73-393) L 04/10/19 14:03 Home Medications: Glucerna 1.5 Vikas 237 ml FT QID #90 bot 02/10/18 Atorvastatin Calcium [Lipitor*] 20 mg FT BEDTIME #30 tab 11/14/18 Collagenase [Santyl Ointment*] 1 appl TOP DAILY #1 tube 11/14/18 Hydralazine [Apresoline*] 25 mg PO BID #60 tab 11/14/18 Lisinopril [Prinivil*] 20 mg FT BID #60 tab 11/14/18 Metformin HCl 1,000 mg FT BID #60 tablet 11/14/18 Metoprolol Tartrate [Lopressor*] 50 mg FT BID 6AM 6PM #60 tab 11/14/18 traMADol HCL [Ultram*] 50 mg FT TID PRN #15 tab 11/14/18 Smz./Tmp. [Bactrim Ds 800 MG/160 MG] 1 each PO BID 14 Days #28 tab 04/08/19 Tramadol HCl [Ultram] 50 mg PO TID PRN #20 tablet 04/08/19 Valacyclovir [Valtrex*] 500 mg PO BID 7 Days #14 tab 04/14/19 New Medications: Valacyclovir [Valtrex*] 500 mg PO BID 7 Days #14 tab Diet: peg feeding Activity: Ad bao Time spent managing pt's care (in minutes): 40
[2019-04-14 10:18] VITALS: BP 154/74; TEMP 97.1
[2019-04-14] MEDS: MORPHINE 2 MG/ML SYR IV PRN (10:31)
== END 2019-04-14 12:43 | disposition home health service (06) | DRG 418 ==
LOC: ER 13:48 → ERHOLD 16:07 → 4TH 17:06
PROVIDERS: ADMIT Family Medicine; ATTEND Internal Medicine
PROC: BF101ZZ Fluoroscopy of Bile Ducts using Low Osmolar Contrast (ICD-10-PCS; 2019-04-12)
PROC: 0FT44ZZ Resection of Gallbladder, Percutaneous Endoscopic Approach (ICD-10-PCS; principal; 2019-04-12 13:15)
DX: K80.12 Calculus of gallbladder with acute and chronic cholecystitis without obstruction (principal); N30.00 Acute cystitis without hematuria; B02.9 Zoster without complications; Z93.1 Gastrostomy status; E11.51 Type 2 diabetes mellitus with diabetic peripheral angiopathy without gangrene; R13.10 Dysphagia, unspecified; I69.320 Aphasia following cerebral infarction; I10 Essential (primary) hypertension; E78.5 Hyperlipidemia, unspecified; I25.10 Atherosclerotic heart disease of native coronary artery without angina pectoris; Z89.422 Acquired absence of other left toe(s)
CPT/HCPCS: 36415; 51702; 74177; 74300; 76700; 80048; 80053; 80076; 80202; 81003; 81015; 82962; 83690; 85025; 87086; 87088; 88304; 94760; 96361; 96365; 96375; 97112; 97161; 97530; 99285; J0696; J2250; J2270; J2370; J2405; J2704; J3010; J3590; J7030; Q9967

== ENCOUNTER 2019-04-17 14:41 | Emergency (ER) | payer MEDICAID ==
--- OUTSIDE RECORDS SUMMARY | 2019-04-17 14:44 | XMS REPORT ---
[...] Status Dosage System Date Date atorvastatin ND 94646580555 20mg Active 1 tablet by mouth at bedtime Pantoprazole ND 02871515381 40 MG Orally Active 1 tablet Sodium Once a day Promethazine HCl ND 71387546409 6.25 MG/5ML NovemberJanuary 23, Active 10 ml as Orally every 6 2018 2019 needed hrs HydrALAZINE HCl ND 47227352021 25 MG Orally Active 1 tablet Three times a with food day Tramadol HCl ND 85761812838 50 MG Orally Active as directed Lisinopril ND 63854951166 10 MG Orally Active 1 tablet Once a day Metformin HCl ND 15632255243 500 MG Orally Active 1 tablet Once a day with a meal Results No Known Results Summary Purpose eClinicalWorks Submission
--- OUTSIDE RECORDS SUMMARY | 2019-04-17 14:44 | XMS REPORT ---
[...] Start Date End Date Status Dosage Lisinopril [facility] 29093769876 40 MG Orally Once Active 1 tablet a day Results No Known Results Summary Purpose eClinicalWorks Submission
--- OUTSIDE RECORDS SUMMARY | 2019-04-17 14:44 | XMS REPORT ---
[...] Date Date Metformin HCl [facility] 04107005468 500 MG Orally Active 1 tablet Twice a day with a meal atorvastatin [facility] 07184178185 20mg oral at Active 1 tablet bedtime HydrALAZINE HCl [facility] 41319791312 25 MG Orally Active 1 tablet Twice a day with food Plavix [facility] 16975261178 75 MG Orally Swetha Active 1 tablet Once a day 2018 Pantoprazole [facility] 61045197547 40 MG Orally Active 1 tablet Sodium Once a day Results No Known Results Summary Purpose eClinicalWorks Submission
--- OUTSIDE RECORDS SUMMARY | 2019-04-17 14:44 | XMS REPORT ---
[...] End Status Dosage System Date Date Plavix [facility] 12437282967 75 MG Orally Active 1 tablet Once a day Atorvastatin [facility] 60480638249 20 MG Active TAKE 1 Calcium TABLET BY MOUTH AT BEDTIME Tramadol HCl [facility] 75789710638 50 MG Orally Active as directed HydrALAZINE HCl [facility] 39646381308 25 MG Orally Active 1 tablet Twice a day with food Pantoprazole [facility] 77522212527 40 MG Orally Active 1 tablet Sodium Once a day atorvastatin [facility] 83286318809 20mg oral at Active 1 tablet bedtime Acetaminophen [facility] [address]-30 167 MG/5ML February 25Aug Active 5ml Orally every 2018 17, hrs 2018 Lisinopril [facility] 44368487613 10 MG Orally Active 1 tablet Once a day Metformin HCl [facility] 04964230423 500 MG Orally Active 1 tablet Twice a day with a meal Results No Known Results Summary Purpose eClinicalWorks Submission
[2019-04-17] MEDS ORDERED: NA CHLORIDE 0.9% 1,000 ML ONE (15:32)
[2019-04-17] MEDS ORDERED: ONDANSETRON 4 MG/2 ML VIAL ONE (15:32)
[2019-04-17 16:10] LABS: Absolute Lymphocytes (CBC) 1.8 K/uL (0.7-4.9); Basophils % 0.6 % (0-1.3); Hematocrit 36.8 % (36.0-45.0); MPV 7.8 fL (7.6-11.3); RBC Red Blood Cell Count 4.32 M/uL (3.86-4.86)
[2019-04-17 16:36] LABS: Albumin 2.9 g/dL (3.4-5.0); Bilirubin Direct 0.1 mg/dL (0-0.2); Bilirubin Total 0.4 mg/dL (0.2-1.0); Potassium 3.9 mmol/L (3.5-5.1); Protein, Total 8.9 g/dL (6.4-8.2)
--- NOTE | 2019-04-17 17:35 | RAD REPORT ---
EXAM DESCRIPTION: CTAbdomen Pelvis W Contrast - 04/17/2019 5:22 pm CLINICAL HISTORY: Abdominal pain. vomiting, recent surgery COMPARISON: <Comparisons> TECHNIQUE: Biphasic CT imaging of the abdomen and pelvis was performed with 100 ml non-ionic IV cont rast. All CT scans are performed using dose optimization technique as appropriate and may include automated exposure control or mA/KV adjustment according to patient size. FINDINGS: The lung bases are clear.Gastrostomy tube is present. Mild pneumoperitoneum is seen. This is probably related to recent surgery/ cholecystectomy per clinic al history. The liver demonstrates no focal mass or intrahepatic biliary dilatation. The spleen, panc reas, adrenal glands and kidneys are within normal limits. No bowel obstruction, free air, free fluid or abscess. Moderate fecal retention is seen. The appendix is not identified as a discrete structure, however, no secondary findings of appendicitis are identi fied. No evidence of significant lymphadenopathy. No suspicious bony findings. IMPRESSION: Mild pneumoperitoneum is seen, presumably related to recent surgical intervention. Moderate stool is retained in the colon. A bowel obstruction is not present.
--- NOTE | 2019-04-17 18:40 | ER ---
Nurse's Notes [facility] Name: Juana Navarro Age: 58 yrs Sex: Female : 1960 Arrival Date: 04/17/2019 Time: 14:50 Bed 13 Private MD: Diagnosis: Vomiting Presentation: 04/17 14:45 Presenting complaint: EMS states: 58 yr. old c/o nausea and vomiting. Is currently on rb1 antibiotics, EMS is unsure why. Has had toes amputated on bilateral feet. History of HTN, Diabetes, CVA. BP 169/94, P 90, and 98% RA. Was here last week for her gallbladder. Transition of care: patient was not received from another setting of care. Onset of symptoms is unknown. Risk Assessment: Do you want to hurt yourself or someone else? Patient reports no desire to harm self or others. Care prior to arrival: None. 14:45 Method Of Arrival: EMS: [facility] 14:45 Acuity: DAVID 3 rb1 14:45 Initial Sepsis Screen: Does the patient meet any 2 criteria? No. Patient's initial rb1 sepsis screen is negative. Does the patient have a suspected source of infection? No. Patient's initial sepsis screen is negative. Triage Assessment: 14:45 General: Appears in no apparent distress. comfortable, Behavior is calm, cooperative. rb1 Neuro: Level of Consciousness is awake, alert, obeys commands, Oriented to person, place, time, situation, Pt. had a stroke in the past that effected her left side.. Cardiovascular: Capillary refill < 3 seconds is brisk in bilateral fingers. Respiratory: Reports cough that is non-productive, Airway is patent Respiratory effort is even, unlabored, Respiratory pattern is regular, symmetrical. GI: Reports nausea, vomiting. Derm: Skin is pink, warm \T\ dry. 14:45 Pain: Denies pain. rb1 Historical: - Home Meds: 14:45 lisinopril 20 mg Oral tab [Active]; metformin 1,000 mg Oral tr24 2 tabs once daily rb1 [Active]; Plavix 75 mg Oral tab 1 tab once daily [Active]; - PMHx: 14:45 CVA; Diabetes - NIDDM; G Tube; Hypertension; NPO, aspiration; rb1 - PSHx: 14:45 Toe amputations; rb1 - Immunization history:: Adult Immunizations up to date. - Social history:: Smoking status: Patient/guardian denies using tobacco. - Ebola Screening: : Patient negative for fever greater than or equal to 101.5 degrees Fahrenheit, and additional compatible Ebola Virus Disease symptoms. Screenin:45 Abuse screen: Denies threats or abuse. Nutritional screening: Not able to keep food rb1 down. 14:45 Tuberculosis screening: No symptoms or risk factors identified. rb1 14:45 Fall Risk No fall in past 12 months (0 pts). Secondary diagnosis (15 points) impaired rb1 mobility, CVA, No IV (0 pts). Ambulatory Aid- None/Bed Rest/Nurse Assist (0 pts). Gait- Impaired (20 pts.). Mental Status- Oriented to own ability (0 pts). Total Cohen Fall Scale indicates High Risk Score (45 or more points). Fall prevention measures have been instituted. Side Rails Up X 2 Placed Close to Nursing Station 1:1 Attendant Assigned Frequent Obs/Assessments Occuring Family Present and informed to notify staff if the need to leave the bedside As available patient and family educated on Fall Prevention Program and Strategies. Assessment: 14:45 General: See triage assessment. rb1 15:45 Reassessment: Patient appears in no apparent distress at this time. No changes from rb1 previously documented assessment. Pt. is currently taking Valtrex for a UTI and she had her gallbladder removed last week per daughter's report. 16:45 Reassessment: Patient appears in no apparent distress at this time. Patient and/or rb1 family updated on plan of care and expected duration. Pain level reassessed. Patient is alert, oriented x 3, equal unlabored respirations, skin warm/dry/pink. Daughter at bedside. 17:40 Reassessment: Patient appears in no apparent distress at this time. No changes from rb1 previously documented assessment. No vomiting noted since the pt. arrived. 18:00 Reassessment: Administered 180 ml of water into the pt. peg tube for the PO challenge. rb1 Family at bedside. 18:30 Reassessment: Pt. tolerated PO challenge well. family remains at bedside. rb1 Vital Signs: 14:45 BP 131 / 64; Pulse 85; Resp 17; Temp 99.1(O); Pulse Ox 98% on R/A; rb1 15:45 BP 141 / 66; Pulse 89; Resp 16; Temp 99.0(O); Pulse Ox 96% on R/A; Pain 0/10; rb1 16:45 BP 158 / 73; Pulse 79; Resp 17; Temp 98.1(O); Pulse Ox 97% on R/A; Pain 0/10; rb1 17:40 BP 156 / 76; Pulse 81; Resp 19; Temp 98.1(O); Pulse Ox 98% on R/A; Pain 0/10; rb1 18:30 BP 153 / 75; Pulse 83; Resp 17; Temp 98.3(O); Pulse Ox 97% on R/A; Pain 0/10; rb1 ED Course: 14:45 Arm band placed on right wrist. rb1 14:45 Patient has correct armband on for positive identification. Bed in low position. Call rb1 light in reach. Side rails up X2. Pulse ox on. NIBP on. 14:50 Patient arrived in ED. rb1 14:51 Tyson Landrum PA is PHCP. jmm 14:51 Mykel Romero MD is Attending Physician. jmm 14:54 Triage completed. rb1 15:25 Emily Duron, RN is Primary Nurse. rb1 15:31 Radiology exam delayed due to lab results not completed at this time. (BUN/Creatinine). mw3 15:45 Missed attempt(s): 22 gauge in left antecubital area. Bleeding controlled, band aid jp3 applied, catheter tip intact. 15:55 Inserted saline lock: 22 gauge in right antecubital area, using aseptic technique. jp3 Blood collected. 16:01 Basic Metabolic Panel Sent. jp3 16:01 CBC with Diff Sent. jp3 16:01 Creatinine for Radiology Sent. jp3 16:01 Hepatic Function Sent. jp3 16:01 Lipase Sent. jp3 17:22 CT completed. Patient tolerated procedure well. Patient moved back from CT. mw3 17:23 CT Abd/Pelvis - IV Contrast Only In Process Unspecified. EDMS 18:39 Chris Barbour MD is Referral Physician. jmm 19:07 No provider procedures requiring assistance completed. IV discontinued, intact, rb1 bleeding controlled, No redness/swelling at site. Pressure dressing applied. Administered Medications: 15:59 Drug: Zofran 4 mg Route: IVP; Site: right antecubital; rb1 16:15 Follow up: Response: No adverse reaction; Nausea is decreased rb1 16:00 Drug: NS 0.9% 1000 ml Route: IV; Rate: 1 bolus; Site: right antecubital; rb1 16:58 Follow up: IV Status: Completed infusion rb1 Outcome: 18:39 Discharge ordered by . leda 19:07 Patient left the ED. rb1 19:07 Discharged to home via wheelchair, with family. rb1 19:07 Condition: stable 19:07 Discharge instructions given to family, Instructed on discharge instructions, follow up and referral plans. medication usage, Demonstrated understanding of instructions, follow-up care, medications, Prescriptions given X 1. Signatures: Dispatcher [employer] EDMS Tyson Landrum PA PA jmm Barber, Rebecca, RN RN rb1 Jody Spence mw3 Crispin Mcgowan 3
--- NOTE | 2019-04-17 18:40 | EDPHYS ---
Physician Documentation [facility] Name: Juana Navarro Age: 58 yrs Sex: Female : 1960 Arrival Date: 04/17/2019 Time: 14:50 Bed 13 Private MD: ED Physician Mykel Romero HPI: 04/17 15:17 This 58 yrs old Female presents to ER via EMS with complaints of jmm Nausea/Vomiting. 15:17 The patient presents to the emergency department with vomiting. Onset: The jmm symptoms/episode began/occurred this morning. Possible causes: unknown. The symptoms are aggravated by nothing. The symptoms are alleviated by nothing. Associated signs and symptoms: The patient has no apparent associated signs or symptoms. This is a 58 year old female with a history of CVA, HTN, that presents to the ED with 1 episode of vomiting. Patient is 1 week s/p cholecystectomy. Family denies concerns for pain. . Historical: - Home Meds: 14:45 lisinopril 20 mg Oral tab [Active]; metformin 1,000 mg Oral tr24 2 tabs once daily rb1 [Active]; Plavix 75 mg Oral tab 1 tab once daily [Active]; - PMHx: 14:45 CVA; Diabetes - NIDDM; G Tube; Hypertension; NPO, aspiration; rb1 - PSHx: 14:45 Toe amputations; rb1 - Immunization history:: Adult Immunizations up to date. - Social history:: Smoking status: Patient/guardian denies using tobacco. - Ebola Screening: : Patient negative for fever greater than or equal to 101.5 degrees Fahrenheit, and additional compatible Ebola Virus Disease symptoms. ROS: 15:17 Constitutional: Negative for fever, chills, and weight loss, Cardiovascular: Negative jmm for chest pain, palpitations, and edema, Respiratory: Negative for shortness of breath, cough, wheezing, and pleuritic chest pain. 15:17 Abdomen/GI: Positive for vomiting. 15:17 All other systems are negative. Exam: 15:17 Head/Face: atraumatic. Eyes: EOMI, no conjunctival erythema appreciated ENT: Moist jmm Mucus Membranes Neck: Trachea midline, Supple Chest/axilla: Normal chest wall appearance and motion. Cardiovascular: Regular rate and rhythm. No edema appreciated Respiratory: Normal respirations, no respiratory distress appreciated 15:17 Constitutional: The patient appears in no acute distress, awake. 15:17 Abdomen/GI: Inspection: abdomen appears normal, Bowel sounds: normal, Palpation: abdomen is soft and non-tender, in all quadrants. 15:17 Musculoskeletal/extremity: ROM: intact in all extremities. 15:17 Skin: Appearance: Color: normal in color. 15:17 Neuro: Vital Signs: 14:45 BP 131 / 64; Pulse 85; Resp 17; Temp 99.1(O); Pulse Ox 98% on R/A; rb1 15:45 BP 141 / 66; Pulse 89; Resp 16; Temp 99.0(O); Pulse Ox 96% on R/A; Pain 0/10; rb1 16:45 BP 158 / 73; Pulse 79; Resp 17; Temp 98.1(O); Pulse Ox 97% on R/A; Pain 0/10; rb1 17:40 BP 156 / 76; Pulse 81; Resp 19; Temp 98.1(O); Pulse Ox 98% on R/A; Pain 0/10; rb1 18:30 BP 153 / 75; Pulse 83; Resp 17; Temp 98.3(O); Pulse Ox 97% on R/A; Pain 0/10; rb1 MDM: 15:17 Patient medically screened. [facility] 18:36 Data reviewed: vital signs, nurses notes, lab test result(s), radiologic studies, CT [facility] scan. Counseling: I had a detailed discussion with the patient and/or guardian regarding: the historical points, exam findings, and any diagnostic results supporting the discharge/admit diagnosis, lab results, radiology results, the need for outpatient follow up, to return to the emergency department if symptoms worsen or persist or if there are any questions or concerns that arise at home. ED course: Patient tolerates through feeding tube without vomiting. CT abdomen shows no acute intraabdominal process. Patient advised to follow up with closely with PCP and otherwise given strict return precautions. . 04/17 15:18 Order name: Basic Metabolic Panel; Complete Time: 16:38 [facility] 04/17 15:18 Order name: CBC with Diff; Complete Time: 16:38 [facility] 04/17 15:18 Order name: Creatinine for Radiology; Complete Time: 16:38 [facility] 04/17 15:18 Order name: Hepatic Function; Complete Time: 16:38 [facility] 04/17 15:18 Order name: Lipase; Complete Time: 16:38 [facility] 04/17 15:18 Order name: CT Abd/Pelvis - IV Contrast Only; Complete Time: 17:39 [facility] 04/17 15:18 Order name: IV Saline Lock; Complete Time: 16:00 [facility] 04/17 15:18 Order name: Labs collected and sent; Complete Time: 16:00 [facility] 04/17 17:40 Order name: PO challenge; Complete Time: 18:03 [facility] Administered Medications: 15:59 Drug: Zofran 4 mg Route: IVP; Site: right antecubital; rb1 16:15 Follow up: Response: No adverse reaction; Nausea is decreased rb1 16:00 Drug: NS 0.9% 1000 ml Route: IV; Rate: 1 bolus; Site: right antecubital; rb1 16:58 Follow up: IV Status: Completed infusion rb1 Disposition: 04/17/19 18:39 Discharged to Home. Impression: Vomiting. - Condition is Stable. - Discharge Instructions: Nausea and Vomiting, Adult. - Prescriptions for Zofran 4 mg Oral Tablet - take 1 tablet by ORAL route every 12 hours As needed; 20 tablet. - Medication Reconciliation Form, Thank You Letter, Antibiotic Education, Prescription Opioid Use form. - Follow up: Chris Barbour MD; When: 2 - 3 days; Reason: Recheck today's complaints, Continuance of care, Re-evaluation by your physician. Addendum: 04/19/2019 10:01 Co-signature as Attending Physician, Mykel Romero MD I agree with the assessment and c aguirre plan of care. Signatures: Dispatcher [employer] Mykel Rubalcava MD MD cha Mickail, Joel, PA PA [facility] Emily Duron, POLLY RN rb1 Corrections: (The following items were deleted from the chart) 04/17 19:07 18:39 04/17/2019 18:39 Discharged to Home. Impression: Vomiting. Condition is Stable. rb1 Forms are Medication Reconciliation Form, Thank You Letter, Antibiotic Education, Prescription Opioid Use. Follow up: Chris Barbour; When: 2 - 3 days; Reason: Recheck today's complaints, Continuance of care, Re-evaluation by your physician. [facility]
[2019-04-17 19:42] VITALS: TEMP 98.1
[2019-04-17 19:43] VITALS: BP 156/76; O2SAT 98
== END 2019-04-17 19:07 | disposition home or self-care (01) ==
LOC: ER 14:41
DX: R11.10 Vomiting, unspecified (principal); E11.9 Type 2 diabetes mellitus without complications; I10 Essential (primary) hypertension; Z86.73 Personal history of transient ischemic attack (TIA), and cerebral infarction without residual deficits
CPT/HCPCS: 96361; 85025; 80048; 36415; 80076; 83690; 74177; 96374; 99285; Q9967; J7030; J2405

== ENCOUNTER 2019-06-10 10:59 | Emergency (ER) | payer MEDICAID ==
[2019-06-10 11:58] LABS: Basophils % 0.4 % (0-1.3); Hematocrit 33.1 % (36.0-45.0); Lymphocytes % 15.1 % (15.3-44.8); MPV 8.5 fL (7.6-11.3); RBC Red Blood Cell Count 3.81 M/uL (3.86-4.86)
[2019-06-10 12:12] LABS: Albumin 2.8 g/dL (3.4-5.0); Bilirubin Direct 0.1 mg/dL (0-0.2); Bilirubin Total 0.3 mg/dL (0.2-1.0); Magnesium 2.1 mg/dL (1.8-2.4); Potassium 4.8 mmol/L (3.5-5.1); Protein, Total 8.2 g/dL (6.4-8.2)
--- NOTE | 2019-06-10 12:34 | EKG ---
Test Date: 2019-06-10 Test Time: 11:10:41 [employer] Supervisor: KARY MEASUREMENT RESULTS: Intervals: Rate: 91 [place]: 144 QRSD: 86 QT: 374 QTc: 460 [place]: P: 72 [place]: 144 QRS: 25 T: 74 INTERPRETIVE STATEMENTS: Normal sinus rhythm Low voltage QRS Borderline ECG Compared to ECG 11/12/2018 09:39:34 Low QRS voltage now present Right superior axis no longer present ST (T wave) deviation no longer present Electronically Signed On 06-10-19 12:33:39 CDT by Raghav Fuentes
--- NOTE | 2019-06-10 12:38 | RAD REPORT ---
EXAM DESCRIPTION: RAD - Chest Single View - 06/10/2019 12:07 pm CLINICAL HISTORY: Shortness of breath, abdominal pain COMPARISON: April 07 portable chest TECHNIQUE: AP portable chest image was obtained 1147 hours . FINDINGS: Lungs are clear. Heart and vasculature are normal. No measurable pleural effusion and no p neumothorax. No acute bony abnormality seen. No acute aortic findings. PICC line has been removed sin ce the prior study. IMPRESSION: No acute cardiopulmonary process.
[2019-06-10] MEDS ORDERED: NA CHLORIDE 0.9% 500 ML ONE (13:45)
[2019-06-10 13:52] LABS: Urine Blood 2+ (NEG); Urine Glucose NEGATIVE (NEG); Urine Protein 2+ (NEG); Urine pH 5.5 (5.0-7.0)
[2019-06-10 13:55] LABS: Urine Bacteria >50 /HPF (<20); Urine Culture Reflex Order REFLEXED; Urine RBC >50 /HPF (NONE SEEN)
--- NOTE | 2019-06-10 14:05 | ER ---
Nurse's Notes [facility] Name: Juana Navarro Age: 59 yrs Sex: Female : 1960 Arrival Date: 06/10/2019 Time: 11:05 Bed 19 Private MD: Diagnosis: Urinary tract infection, site not specified;Diarrhea, unspecified Presentation: 06/10 11:13 Presenting complaint: EMS states: Daughter called due to pt feeling bad and diarrhea jl7 for 3 or 4 days and a sacral pressure ulcer. Transition of care: patient was not received from another setting of care. Onset of symptoms was June 08, 2019. Risk Assessment: Do you want to hurt yourself or someone else? Unable to obtain. Initial Sepsis Screen: Does the patient meet any 2 criteria? No. Patient's initial sepsis screen is negative. Does the patient have a suspected source of infection? No. Patient's initial sepsis screen is negative. Care prior to arrival: None. 11:13 Acuity: DAVID 3 jl7 11:13 Method Of Arrival: EMS: [facility] jl7 Historical: - Allergies: 11:19 No Known Allergies; jl7 - Home Meds: 11:19 Plavix 75 mg Oral tab 1 tab once daily [Active]; metformin 1,000 mg Oral tr24 2 tabs jl7 once daily [Active]; pantoprazole 40 mg oral TbEC 1 tab once daily [Active]; atorvastatin 20 mg oral tab 1 tab once daily [Active]; hydralazine 25 mg Oral tab [Active]; lisinopril 40 mg oral tab [Active]; - PMHx: 11:19 CVA; Diabetes - NIDDM; G Tube; Hypertension; NPO, aspiration; nonverbal; bed bound; jl7 - PSHx: 11:19 Toe amputations; jl7 - Immunization history:: Adult Immunizations unknown. - Social history:: Smoking status: Patient/guardian denies using tobacco. - Ebola Screening: : No symptoms or risks identified at this time. Screenin:15 Abuse screen: unable to assess. Nutritional screening: No deficits noted. Tuberculosis jl7 screening: No symptoms or risk factors identified. Fall Risk IV access (20 points). Total Cohen Fall Scale indicates No Risk (0-24 pts). Assessment: 11:15 General: Appears in no apparent distress. uncomfortable, Behavior is cooperative, jl7 agitated. Pain: Unable to use pain scale. FLACC scale score is 5 out of 10. Neuro: Level of Consciousness is awake, alert, obeys commands, Oriented to unable to assess. Cardiovascular: Heart tones present Patient's skin is warm and dry. Respiratory: Airway is patent Respiratory effort is even, unlabored, Respiratory pattern is regular, symmetrical, Breath sounds are clear bilaterally. GI: PEG tube in place, Site clean. Derm: Decubitus located on sacrum approximately 2.6 cm to 7.5 cm is stage II has erythematous edges. Musculoskeletal: Range of motion: limited in all extremities. Vital Signs: 11:19 BP 111 / 65; Pulse 85; Resp 19 S; Temp 98.8(O); Pulse Ox 99% on R/A; jl7 ED Course: 11:05 Patient arrived in ED. ss 11:06 [facility]C [facility] kb 11:06 Mykel Romero MD is Attending Physician. kb 11:13 Kandy Beck RN is Primary Nurse. jl7 11:15 Patient has correct armband on for positive identification. Bed in low position. Call jl7 light in reach. Side rails up X2. Adult w/ patient. monitor and storage bin tender on. Pulse ox on. NIBP on. Warm blanket given. 11:17 Triage completed. jl7 11:19 Arm band placed on right wrist. jl7 11:24 EKG done, by construction equipment technician. reviewed by Mariaa ROMERO. sm3 11:30 Missed attempt(s): 22 gauge in right antecubital area. Bleeding controlled, band aid dh3 applied, catheter tip intact. 11:35 Missed attempt(s): 22 gauge in left antecubital area. Bleeding controlled, band aid dh3 applied, catheter tip intact. 11:41 Initial lab(s) drawn, sent to lab. Inserted saline lock: 24 gauge in right hand, using dh3 aseptic technique. Blood collected. by POLLY Gaitan. 12:21 XRAY Chest (1 view) In Process Unspecified. EDMS 13:16 Urine collected: straight cath specimen, cloudy. Straight cath inserted, using sterile jl7 technique, 16 Fr. Returned cloudy urine. Patient tolerated well. 13:34 pt daughters number is [phone] (darek drew). bd 14:30 No provider procedures requiring assistance completed. IV discontinued, intact, jl7 bleeding controlled, No redness/swelling at site. Pressure dressing applied. Administered Medications: 13:48 Drug: NS 0.9% 500 ml Route: IV; Rate: bolus; Site: right hand; jl7 14:37 Follow up: IV Status: Completed infusion jl7 14:25 Drug: Rocephin 1 grams Route: IV; Rate: calculated rate; Site: right hand; jl7 14:28 Follow up: Response: No adverse reaction; IV Status: Completed infusion jl7 Outcome: 14:03 Discharge ordered by . zak 14:30 Discharged to home via wheelchair, with family. jl7 14:30 Condition: stable 14:30 Discharge instructions given to patient, family, Instructed on discharge instructions, follow up and referral plans. medication usage, Demonstrated understanding of instructions, follow-up care, medications, Prescriptions given X 1. 14:39 Patient left the ED. jl7 Signatures: Dispatcher [employer] EDMS Mariaa Sanchez, NICK HAM-Angela Fuentes Shelby RN RN ss Kandy Beck RN RN jl7 Ericka Drummond [facility] Edel Porter 3
--- NOTE | 2019-06-10 14:05 | EDPHYS ---
Physician Documentation [facility] Name: Juana Navarro Age: 59 yrs Sex: Female : 1960 Arrival Date: 06/10/2019 Time: 11:05 Bed 19 Private MD: ED Physician Mykel Romero HPI: 06/10 11:19 This 59 yrs old Female presents to ER via EMS with complaints of diarrhea, not kb feeling well. 11:19 The patient presents to the emergency department with diarrhea. Onset: The kb symptoms/episode began/occurred 3 day(s) ago. Possible causes: unknown. The symptoms are aggravated by nothing. The symptoms are alleviated by nothing. Associated signs and symptoms: Pertinent positives: diarrhea, Pertinent negatives: abdominal pain, fever, vomiting. Severity of symptoms: At their worst the symptoms were moderate in the emergency department the symptoms are unchanged. The patient has experienced a previous episode. The patient has not recently seen a physician. Daughter states pt has had diarrhea and has not been feeling well for 3-4 days. The diarrhea was worse last night and they noticed the sore on her bottom today. Historical: - Allergies: 11:19 No Known Allergies; jl7 - Home Meds: 11:19 Plavix 75 mg Oral tab 1 tab once daily [Active]; metformin 1,000 mg Oral tr24 2 tabs jl7 once daily [Active]; pantoprazole 40 mg oral TbEC 1 tab once daily [Active]; atorvastatin 20 mg oral tab 1 tab once daily [Active]; hydralazine 25 mg Oral tab [Active]; lisinopril 40 mg oral tab [Active]; - PMHx: 11:19 CVA; Diabetes - NIDDM; G Tube; Hypertension; NPO, aspiration; nonverbal; bed bound; jl7 - PSHx: 11:19 Toe amputations; jl7 - Immunization history:: Adult Immunizations unknown. - Social history:: Smoking status: Patient/guardian denies using tobacco. - Ebola Screening: : No symptoms or risks identified at this time. ROS: 11:17 ENT: Negative for injury, pain, and discharge, Neck: Negative for injury, pain, and kb swelling, Cardiovascular: Negative for chest pain, palpitations, and edema, Respiratory: Negative for shortness of breath, cough, wheezing, and pleuritic chest pain, Back: Negative for injury and pain, MS/Extremity: Negative for injury and deformity. 11:17 Constitutional: Positive for malaise. 11:17 Abdomen/GI: Positive for diarrhea. 11:17 Skin: Positive for of the coccyx, sore. Exam: 11:12 Constitutional: This is a well developed, well nourished patient who is awake, alert, kb and in no acute distress. Head/Face: Normocephalic, atraumatic. ENT: Nares patent. No nasal discharge, no septal abnormalities noted. Tympanic membranes are normal and external auditory canals are clear. Oropharynx with no redness, swelling, or masses, exudates, or evidence of obstruction, uvula midline. Mucous membranes moist. Neck: Trachea midline, no thyromegaly or masses palpated, and no cervical lymphadenopathy. Supple, full range of motion without nuchal rigidity, or vertebral point tenderness. No Meningismus. Chest/axilla: Normal chest wall appearance and motion. Nontender with no deformity. No lesions are appreciated. Cardiovascular: Regular rate and rhythm with a normal S1 and S2. No gallops, murmurs, or rubs. Normal PMI, no JVD. No pulse deficits. Respiratory: Lungs have equal breath sounds bilaterally, clear to auscultation and percussion. No rales, rhonchi or wheezes noted. No increased work of breathing, no retractions or nasal flaring. Abdomen/GI: Soft, non-tender, with normal bowel sounds. No distension or tympany. No guarding or rebound. No evidence of tenderness throughout. PEG tube noted to abd Back: No spinal tenderness. No costovertebral tenderness. Full range of motion. 11:12 Skin: stage 2 pressure ulcer noted to coccyx; wound vac to bilateral feet. 11:19 Neuro: Exam negative for acute changes, pt is nonverbal from previous stroke, unable to kb ambulate/change positions per family. Vital Signs: 11:19 BP 111 / 65; Pulse 85; Resp 19 S; Temp 98.8(O); Pulse Ox 99% on R/A; jl7 MDM: 11:06 Patient medically screened. kb 11:10 Data reviewed: vital signs, nurses notes. kb 11:22 Data interpreted: Pulse oximetry: on room air is 99 %. Interpretation: normal. kb 14:01 Counseling: I had a detailed discussion with the patient and/or guardian regarding: the kb historical points, exam findings, and any diagnostic results supporting the discharge/admit diagnosis, lab results, radiology results, the need for outpatient follow up, a family practitioner, to return to the emergency department if symptoms worsen or persist or if there are any questions or concerns that arise at home. ED course: Daughters given instructions on UTI, antibiotics and to return for worsening symptoms or any other concerns. Primary caregiver reports pt has an appt with Dr Barbour on Friday for follow up. Will send home on Cipro to be given through PEG.. 06/10 11:08 Order name: LFT's; Complete Time: 12:20 kb 06/10 11:08 Order name: Basic Metabolic Panel; Complete Time: 12:20 kb 06/10 11:08 Order name: CBC with Diff kb 06/10 11:08 Order name: Magnesium; Complete Time: 12:20 kb 06/10 11:08 Order name: NT PRO-BNP; Complete Time: 12:20 kb 06/10 11:08 Order name: Lactate; Complete Time: 12:31 kb 06/10 11:08 Order name: XRAY Chest (1 view); Complete Time: 12:46 kb 06/10 11:08 Order name: Procalcitonin; Complete Time: 12:20 kb 06/10 13:37 Order name: Urine Microscopic Only kb 06/10 13:45 Order name: Urine Dipstick--Ancillary (enter results) 06/10 13:54 Order name: Urine Dipstick-Ancillary [facility] 06/10 14:05 Order name: Urine Culture [facility] 06/10 11:08 Order name: EKG; Complete Time: 11:10 kb 06/10 11:08 Order name: Cardiac monitoring; Complete Time: 11:25 kb 06/10 11:08 Order name: EKG - Nurse/Tech; Complete Time: 11:25 kb 06/10 11:08 Order name: IV Saline Lock; Complete Time: 11:25 kb 06/10 11:08 Order name: Labs collected and sent; Complete Time: 11:43 kb 06/10 11:08 Order name: O2 Per Protocol; Complete Time: 11:26 kb 06/10 11:08 Order name: O2 Sat Monitoring; Complete Time: 11:26 kb 06/10 11:08 Order name: Urine Dipstick-Ancillary (obtain specimen); Complete Time: 13:17 kb Administered Medications: 13:48 Drug: NS 0.9% 500 ml Route: IV; Rate: bolus; Site: right hand; jl7 14:37 Follow up: IV Status: Completed infusion jl7 14:25 Drug: Rocephin 1 grams Route: IV; Rate: calculated rate; Site: right hand; jl7 14:28 Follow up: Response: No adverse reaction; IV Status: Completed infusion 7 Disposition: 06/11 06:42 Co-signature as Attending Physician, Mykel Romero MD I agree with the assessment and austyn plan of care. Disposition: 06/10/19 14:03 Discharged to Home. Impression: Urinary tract infection, site not specified, Diarrhea, unspecified. - Condition is Stable. - Discharge Instructions: Urinary Tract Infection, Adult, [id number], Diarrhea, Adult, [id number]. - Prescriptions for Cipro 500 mg Oral Tablet - take 1 tablet by ORAL route every 12 hours for 10 days; 20 tablet. - Medication Reconciliation Form, Thank You Letter, Antibiotic Education, Prescription Opioid Use form. - Follow up: Emergency Department; When: As needed; Reason: Worsening of condition. Follow up: Private Physician; When: 2 - 3 days; Reason: Recheck today's complaints, Continuance of care, Re-evaluation by your physician. Signatures: Dispatcher [employer] EDMariaa Rodriguez, PROTOTYPE SPECIAL BUILD-C PROTOTYPE SPECIAL BUILD-Robbieb Mykel Romero MD MD cha Leal, Jahala, RN RN jl7 Corrections: (The following items were deleted from the chart) 06/10 14:39 14:03 06/10/2019 14:03 Discharged to Home. Impression: Urinary tract infection, site jl7 not specified; Diarrhea, unspecified. Condition is Stable. Forms are Medication Reconciliation Form, Thank You Letter, Antibiotic Education, Prescription Opioid Use. Follow up: Emergency Department; When: As needed; Reason: Worsening of condition. Follow up: Private Physician; When: 2 - 3 days; Reason: Recheck today's complaints, Continuance of care, Re-evaluation by your physician. kb
[2019-06-10] MEDS ORDERED: CEFTRIAXONE/SWI 1gm 1 GM/10 ML SYR ONE (14:21)
[2019-06-10 15:02] VITALS: BP 111/65; TEMP 98.8; O2SAT 99
== END 2019-06-10 14:39 | disposition home or self-care (01) ==
LOC: ER 10:59
DX: N39.0 Urinary tract infection, site not specified (principal); I10 Essential (primary) hypertension; E11.9 Type 2 diabetes mellitus without complications; Z86.73 Personal history of transient ischemic attack (TIA), and cerebral infarction without residual deficits; Z79.01 Long term (current) use of anticoagulants
CPT/HCPCS: 96361; 93005; 87088; 85025; 87086; 80048; 36415; 83735; 80076; 83605; 84145; 83880; 71045; 51702; 96374; 99285; J0696; J7040; 81003; 81015

== ENCOUNTER 2019-07-04 15:36 | Emergency (ER) | payer MEDICAID ==
[2019-07-04] MEDS ORDERED: NA CHLORIDE 0.9% 1,000 ML ONE (16:24)
[2019-07-04 16:42] LABS: Absolute Lymphocytes (CBC) 1.2 K/uL (0.7-4.9); Basophils % 0.4 % (0-1.3); Hematocrit 35.3 % (36.0-45.0); Lymphocytes % 9.2 % (15.3-44.8); RBC Red Blood Cell Count 4.12 M/uL (3.86-4.86)
[2019-07-04] MEDS ORDERED: DIPHENOX/ATROP SULF 1 TAB PO ONE (16:43)
[2019-07-04 17:04] LABS: Albumin 2.8 g/dL (3.4-5.0); Bilirubin Direct 0.1 mg/dL (0-0.2); Bilirubin Total 0.3 mg/dL (0.2-1.0); Potassium 4.7 mmol/L (3.5-5.1)
--- NOTE | 2019-07-04 17:39 | RAD REPORT ---
EXAM DESCRIPTION: CTAbdomen Pelvis W Contrast - 07/04/2019 5:31 pm CLINICAL HISTORY: Abdominal pain. diarrhea COMPARISON: Abdomen Pelvis W Contrast dated 04/17/2019; Abdomen Pelvis W Contrast dated 04/10/2019; Abdomen Pelvis W Contrast dated 05/15/2018; CT ABD PELVIS W CONTRAST dated 05/28/2008 TECHNIQUE: Biphasic CT imaging of the abdomen and pelvis was performed with 100 ml non-ionic IV cont rast. All CT scans are performed using dose optimization technique as appropriate and may include automated exposure control or mA/KV adjustment according to patient size. FINDINGS: The lung bases are clear.Cholecystectomy clips. Gastrostomy tube is noted. The liver, spleen, pancreas, adrenal glands and kidneys are within normal limits. No bowel obstruction, free air, free fluid or abscess. The appendix is normal. No evidence of signi ficant lymphadenopathy. Moderate lumbar degenerative changes. IMPRESSION: No acute intra-abdominal or pelvic finding.
--- NOTE | 2019-07-04 17:56 | EDPHYS ---
Physician Documentation [facility] Name: Juana Navarro Age: 59 yrs Sex: Female : 1960 Arrival Date: 07/04/2019 Time: 15:41 Bed 16 Private MD: ED Physician Francisco J Wolfe HPI: 07/04 16:32 This 59 yrs old Female presents to ER via EMS with complaints of Diarrhea, rn pressure ulcer. 16:32 The patient presents to the emergency department with diarrhea. rn Historical: - Allergies: 15:53 No Known Allergies; em - Home Meds: 15:53 atorvastatin 20 mg Oral tab 1 tab once daily [Active]; hydralazine 25 mg Oral tab em [Active]; lisinopril 40 mg Oral tab [Active]; metformin 1,000 mg Oral tr24 2 tabs once daily [Active]; pantoprazole 40 mg Oral TbEC 1 tab once daily [Active]; Plavix 75 mg Oral tab 1 tab once daily [Active]; - PMHx: 15:53 bed bound; CVA; Diabetes - NIDDM; G Tube; Hypertension; nonverbal; NPO, aspiration; em - PSHx: 15:53 Toe amputations; em - Immunization history:: Adult Immunizations up to date. - Social history:: Smoking status: Patient/guardian denies using tobacco. - Ebola Screening: : Patient negative for fever greater than or equal to 101.5 degrees Fahrenheit, and additional compatible Ebola Virus Disease symptoms Patient denies exposure to infectious person Patient denies travel to an Ebola-affected area in the 21 days before illness onset No symptoms or risks identified at this time. - Family history:: not pertinent. - Hospitalizations: : No recent hospitalization is reported. ROS: 17:45 Constitutional: Negative for fever, chills, and weight loss, Eyes: Negative for injury, rn pain, redness, and discharge, Neck: Negative for injury, pain, and swelling, Cardiovascular: Negative for chest pain, palpitations, and edema, Respiratory: Negative for shortness of breath, cough, wheezing, and pleuritic chest pain, Abdomen/GI: + diarrhea, negative for abdominal pain MS/Extremity: Negative for injury and deformity, Skin: + pressure/decubitus ulceration, + chronic osteomyelitis of bilateral feet Neuro: Negative for headache, weakness, numbness, tingling, and seizure. Exam: 17:45 Constitutional: This is a well developed patient who is awake, alert, and in no acute rn distress. Head/Face: Normocephalic, atraumatic. ENT: dry MM Cardiovascular: Regular rate and rhythm. No pulse deficits. Respiratory: No increased work of breathing, no retractions or nasal flaring. Abdomen/GI: soft, non-tender, no masses MS/ Extremity: Pulses equal, no cyanosis. Vital Signs: 15:53 BP 130 / 78; Pulse 95; Resp 18; Temp 98.4(O); Pulse Ox 99% on R/A; em 17:05 BP 112 / 59; Pulse 89; Resp 18; Pulse Ox 99% on R/A; Pain 0/10; em 17:05 Zamora-Benson (FACES) em MDM: 16:08 Patient medically screened. rn 17:48 Differential diagnosis: Nonspecific abd pain, diverticulitis, viral gastroenteritis, rn gastroenteritis. Data reviewed: vital signs, nurses notes, lab test result(s), radiologic studies, CT scan, and as a result, I will discharge patient. Counseling: I had a detailed discussion with the patient and/or guardian regarding: the historical points, exam findings, and any diagnostic results supporting the discharge/admit diagnosis, lab results, radiology results, the need for outpatient follow up, to return to the emergency department if symptoms worsen or persist or if there are any questions or concerns that arise at home. Response to treatment: the patient's symptoms have mildly improved after treatment, and as a result, I will discharge patient. Special discussion: I discussed with the patient/guardian in detail that at this point there is no indication for admission to the hospital. It is understood, however, that if the symptoms persist or worsen the patient needs to return immediately for re-evaluation. ED course: Pt with chronic osteo, and chronic sacral decubitus ulcer that recently opened up, sees Dr. Dunaway for feet wounds as well as decubitus ulcer. Has appt with wound care and Dr. Dunaway in [address] abdomen without acute findings. + mild dehydration and given IV fluids. Has tegaderm to isolate sacral wound from diarrhea, and recommend frequent diaper changes. Return precautions given and understood. Afebrile and normal vitals. . 07/04 15:59 Order name: Glucose, Ancillary Testing; Complete Time: 16:21 EDCA 07/04 16:22 Order name: Basic Metabolic Panel; Complete Time: 17:13 rn 07/04 16:22 Order name: CBC with Diff; Complete Time: 17:13 rn 07/04 16:22 Order name: Creatinine for Radiology; Complete Time: 17:13 rn 07/04 16:22 Order name: Hepatic Function; Complete Time: 17:13 rn 07/04 16:22 Order name: Lipase; Complete Time: 17:13 rn 07/04 16:22 Order name: IV Saline Lock; Complete Time: 16:38 rn 07/04 16:22 Order name: Labs collected and sent; Complete Time: 16:38 rn 07/04 16:24 Order name: CT Abd/Pelvis - IV Contrast Only; Complete Time: 17:57 rn Administered Medications: 16:33 Drug: NS 0.9% 1000 ml Route: IV; Rate: 1000 ml; Site: left antecubital; em 18:38 Follow up: IV Status: Order to discontinue infusion; IV Intake: 800ml em 16:51 Drug: LoMOTIL 1 tabs Route: PO; em 18:04 Follow up: Response: No adverse reaction em Disposition: 07/04/19 17:55 Discharged to Home. Impression: Diarrhea, unspecified, Dehydration, Pressure ulcer of sacral region, stage 2. - Condition is Stable. - Discharge Instructions: Dehydration, Adult, Diarrhea, Adult, Wound Care. - Family Work Release, Medication Reconciliation Form, Thank You Letter, Antibiotic Education, Prescription Opioid Use form. - Follow up: Private Physician; When: As needed; Reason: Recheck today's complaints, Re-evaluation by your physician. - Problem is an ongoing problem. - Symptoms have improved. Signatures: Dispatcher [employer] [facility] Jigar Trujillo, MANAGER INSPECTION MANAGER INSPECTION Francisco J Sweet MD MD security intern: (The following items were deleted from the chart) 18:57 17:55 07/04/2019 17:55 Discharged to Home. Impression: Diarrhea, unspecified; em Dehydration; Pressure ulcer of sacral region, stage 2. Condition is Stable. Forms are Medication Reconciliation Form, Thank You Letter, Antibiotic Education, Prescription Opioid Use. Follow up: Private Physician; When: As needed; Reason: Recheck today's complaints, Re-evaluation by your physician. Problem is an ongoing problem. Symptoms have improved. rn
--- NOTE | 2019-07-04 17:56 | ER ---
Nurse's Notes [facility] Name: Juana Navarro Age: 59 yrs Sex: Female : 1960 Arrival Date: 07/04/2019 Time: 15:41 Bed 16 Private MD: Diagnosis: Diarrhea, unspecified;Dehydration;Pressure ulcer of sacral region, stage 2 Presentation: 07/04 15:49 Presenting complaint: EMS states: called out for bed sore pain, redness noted to right em side of hip and coccyx area, and diarrhea for 2 days, hx of CVA, put unable to communicate. Transition of care: patient was not received from another setting of care. Onset of symptoms was July 02, 2019. Risk Assessment: Do you want to hurt yourself or someone else? Patient reports no desire to harm self or others. Initial Sepsis Screen: Does the patient have a suspected source of infection? Yes: Skin breakdown/wound. Initial Sepsis Screen: Does the patient meet any 2 criteria? No. Patient's initial sepsis screen is negative. Care prior to arrival: None. 15:49 Method Of Arrival: EMS: [facility] em 15:56 Acuity: DAVID 3 iw Historical: - Allergies: 15:53 No Known Allergies; em - Home Meds: 15:53 atorvastatin 20 mg Oral tab 1 tab once daily [Active]; hydralazine 25 mg Oral tab em [Active]; lisinopril 40 mg Oral tab [Active]; metformin 1,000 mg Oral tr24 2 tabs once daily [Active]; pantoprazole 40 mg Oral TbEC 1 tab once daily [Active]; Plavix 75 mg Oral tab 1 tab once daily [Active]; - PMHx: 15:53 bed bound; CVA; Diabetes - NIDDM; G Tube; Hypertension; nonverbal; NPO, aspiration; em - PSHx: 15:53 Toe amputations; em - Immunization history:: Adult Immunizations up to date. - Social history:: Smoking status: Patient/guardian denies using tobacco. - Ebola Screening: : Patient negative for fever greater than or equal to 101.5 degrees Fahrenheit, and additional compatible Ebola Virus Disease symptoms Patient denies exposure to infectious person Patient denies travel to an Ebola-affected area in the 21 days before illness onset No symptoms or risks identified at this time. - Family history:: not pertinent. - Hospitalizations: : No recent hospitalization is reported. Screenin:53 Abuse screen: no apparent signs noted. em 15:53 Nutritional screening: No deficits noted. Tuberculosis screening: No symptoms or risk em factors identified. Fall Risk None identified. Assessment: 15:53 General: Appears in no apparent distress. slender, malnourished, Behavior is calm, em cooperative. Pain: Unable to use pain scale. FLACC scale score is 0 out of 10. Neuro: Level of Consciousness is awake, alert, obeys commands, Clinical Nursing Assistant are weak on left Weakness Paralysis in left hand(s) arm(s) leg(s) Speech with expressive aphasia noted, Facial symmetry appears normal, Pupils are PERRLA. Cardiovascular: Capillary refill < 3 seconds Patient's skin is warm and dry. Respiratory: Airway is patent Respiratory effort is even, unlabored, Respiratory pattern is regular, symmetrical. GI: Abdomen is flat, PEG tube in place, clamped. Site clean. Parent/caregiver reports the patient having diarrhea. Derm: Skin is intact, is fragile, Skin is dry, Skin is pink, warm \T\ dry. Musculoskeletal: Range of motion:. 16:51 Reassessment: aspirated G-tube, GI contents returned, gave Lomotil, flushed with 30 CC em of water. 18:36 Reassessment: Patient appears in no apparent distress at this time. dressed and changed em brief, applied new dressed to pressure ulcers on right side of hip and coccyx area. Vital Signs: 15:53 BP 130 / 78; Pulse 95; Resp 18; Temp 98.4(O); Pulse Ox 99% on R/A; em 17:05 BP 112 / 59; Pulse 89; Resp 18; Pulse Ox 99% on R/A; Pain 0/10; em 17:05 Zamora-Benson (FACES) em ED Course: 15:41 Patient arrived in ED. bp 15:45 Jigar Trujillo LVN is Primary Nurse. em 15:53 Arm band placed on. em 15:53 Patient has correct armband on for positive identification. Bed in low position. Call em light in reach. Side rails up X2. Adult w/ patient. Pulse ox on. NIBP on. 15:56 Triage completed. iw 16:08 Francisco J Wolfe MD is Attending Physician. rn 16:30 Initial lab(s) drawn, by me, sent to lab. Inserted saline lock: 20 gauge in left em antecubital area, using aseptic technique. Blood collected. 16:33 Radiology exam delayed due to lab results not completed at this time. (BUN/Creatinine). mw3 17:26 Jigar Trujillo LVN is Primary Nurse. em 17:31 CT completed. Patient tolerated procedure well. Patient moved back from CT. mw3 17:32 CT Abd/Pelvis - IV Contrast Only In Process Unspecified. EDMS 18:35 No provider procedures requiring assistance completed. IV discontinued, intact, em bleeding controlled, No redness/swelling at site. Pressure dressing applied. Administered Medications: 16:33 Drug: NS 0.9% 1000 ml Route: IV; Rate: 1000 ml; Site: left antecubital; em 18:38 Follow up: IV Status: Order to discontinue infusion; IV Intake: 800ml em 16:51 Drug: LoMOTIL 1 tabs Route: PO; em 18:04 Follow up: Response: No adverse reaction em Intake: 18:38 IV: 800ml; Total: 800ml. em Outcome: 17:55 Discharge ordered by . rn 18:56 Discharged to home via ambulance. em 18:56 Condition: good 18:56 Discharge instructions given to family, EMS, Instructed on discharge instructions, follow up and referral plans. Demonstrated understanding of instructions, follow-up care. 18:57 Patient left the ED. em Signatures: Dispatcher [employer] EDNJ Jigar Trujillo LVN LVN em Idania Kim RN RN iw Nieto, Roman, MD MD rn Peltier, Brian, RN RN bp Willis, Michelle mw3
[2019-07-04 19:22] VITALS: TEMP 98.4; O2SAT 99
[2019-07-04 19:24] VITALS: BP 112/59
== END 2019-07-04 18:57 | disposition home or self-care (01) ==
LOC: ER 15:36
DX: E86.0 Dehydration (principal); L89.152 Pressure ulcer of sacral region, stage 2; I10 Essential (primary) hypertension; E11.9 Type 2 diabetes mellitus without complications; Z79.01 Long term (current) use of anticoagulants
CPT/HCPCS: 96361; 85025; 80048; 36415; 82947; 80076; 83690; 74177; 96360; 99284; Q9967; J7030

== ENCOUNTER 2019-07-13 09:49 | Inpatient (IN) | payer MEDICAID ==
--- NOTE | 2019-07-13 10:11 | RAD REPORT ---
EXAM DESCRIPTION: CT - Ct Stroke Brain Wo Cont - 07/13/2019 9:57 am CLINICAL HISTORY: Confusion/alteration of awareness COMPARISON: 2018 TECHNIQUE: Computed axial tomography of the head was obtained. All CT scans are performed using dose optimization technique as appropriate and may include automated exposure control or mA/KV adjustment according to patient size. FINDINGS: An intracranial bleed is not seen . Low-density within the left basal ganglia and left in ternal capsules compatible with an old infarction. The ventricles are normal in caliber. No extra-axial fluid collection is noted. Mild to moderate low-density within periventricular, deep and subcortical white matter likely ischemi c changes secondary to small vessel disease. Cerebral atrophy is present. Fluid within the sinuses/ mastoids is not seen. IMPRESSION: No acute intracranial abnormality is seen. If patient's symptoms persist MRI of the bra in would be recommended. Dr Green of the emergency room was notified at 10 a.m. July 13, 2019
[2019-07-13 10:12] LABS: Absolute Lymphocytes (CBC) 1.5 K/uL (0.7-4.9); Basophils % 0.4 % (0-1.3); MPV 7.7 fL (7.6-11.3); RBC Red Blood Cell Count 3.88 M/uL (3.86-4.86)
[2019-07-13 10:16] LABS: Protime INR 1.14
[2019-07-13 10:32] LABS: Potassium 4.6 mmol/L (3.5-5.1)
[2019-07-13] MEDS ORDERED: CEFEPIME 1 GM/100 ML BAG IV ONE (11:31)
--- NOTE | 2019-07-13 11:37 | RAD REPORT ---
EXAM DESCRIPTION: RAD - Chest Single View - 07/13/2019 10:34 am CLINICAL HISTORY: Stroke protocol chest COMPARISON: June 10 TECHNIQUE: AP portable chest image was obtained 1032 hours . FINDINGS: Lungs are clear. Interstitial pattern is accentuated by shallow inspiration. No true vidal e suspected. Heart and vasculature are normal. No measurable pleural effusion and no pneumothorax. No acute bony abnormality seen. No acute aortic findings suspected. IMPRESSION: No acute cardiopulmonary process.
[2019-07-13] MEDS ORDERED: VANCOMYCIN/NS 1 gm 1 GM/250 ML BAG IV ONE (11:45)
[2019-07-13 11:46] LABS: Urine Blood 2+ (NEG); Urine Glucose NEGATIVE (NEG); Urine Protein 2+ (NEG); Urine Specific Gravity 1.025 (1.005-1.030)
--- NOTE | 2019-07-13 11:58 | RAD REPORT ---
EXAM DESCRIPTION: MRI - Brain Wo Cont - 07/13/2019 11:38 am CLINICAL HISTORY: r/o stroke, unresponsive COMPARISON: CT head July 13, MRI January 2018 TECHNIQUE: Sagittal T1-weighted images were obtained along with axial PD, heavily T2-weighted and T2 -FLAIR images. Axial DWI and ADC mapping sequences were also obtained along with coronal heavily T2-w eighted images. Coronal T2 heme sequence also obtained. FINDINGS: No intracranial hemorrhage, mass or acute infarction. There is no edema or shift of midlin e structures. Advanced for age atrophy changes are present. There is extensive T2 hyperintense signal abnormality throughout each cerebral hemisphere. Patchy signal abnormalities are present in the brai nstem and each basal ganglia. Old infarction changes are present in the external capsule on the left. Ferris-matter/white matter junction is preserved. Signal voids are seen as a normal finding in the deisy or intracranial vessels. Atrophy changes involve the cerebellum and brainstem as well. No globe or orbital content abnormality. Mastoid air cells and paranasal sinuses are clear. IMPRESSION: No acute infarction. No mass, hemorrhage or acute intracranial finding. Patient has advanced for age atrophy involving the cerebrum, cerebellum and brainstem.
--- NOTE | 2019-07-13 12:20 | EKG ---
Test Date: 2019-07-13 Test Time: 10:09:08 Hospital Recruiter: TERRY MEASUREMENT RESULTS: Intervals: Rate: 104 MO: 130 QRSD: 86 QT: 358 QTc: 470 Tullos: P: 60 MO: 130 QRS: -7 T: 83 INTERPRETIVE STATEMENTS: Sinus tachycardia with premature supraventricular complexes Low voltage QRS Borderline ECG Compared to ECG 06/10/2019 11:10:41 Atrial premature complex(es) now present Sinus rhythm no longer present Electronically Signed On 07-13-19 12:19:11 MANAGER OF COMPLIANCE by Waqar Stark
[2019-07-13 12:42] LABS: Urine Bacteria >50 /HPF (<20); Urine Culture Reflex Order NOT NEEDED; Urine Mucus 4+ /HPF (NONE SEEN); Urine RBC >50 /HPF (NONE SEEN); Urine Yeast PRESENT (NONE SEEN); Urine Yeast with Hyphae PRESENT
--- NOTE | 2019-07-13 13:01 | EDPHYS ---
Physician Documentation [facility] Name: Juana Navarro Age: 59 yrs Sex: Female : 1960 Arrival Date: 07/13/2019 Time: 09:51 Bed 3 Private MD: ED Physician Billy Green HPI: 07/13 12:53 This 59 yrs old Female presents to ER via Wheelchair with complaints of S/S of kdr Possible Stroke. 07/14 08:00 The patient was in another hospital department when she was thought to be altered and kdr her BP was noted to be low (SBP 60's). She was brought to the ED for evaluation.. Onset: The symptoms/episode began/occurred just prior to arrival, at an unknown time. Severity of symptoms: At their worst the symptoms were moderate in the emergency department the symptoms have improved mildly. It is unknown whether or not the patient has had similar symptoms in the past. It is unknown whether or not the patient has recently seen a physician. 08:16 While the patient is generally not verbal, per the family, she can usually respond with kdr her head yes/no. When the patient first arrived, no family was present and so her verbal interaction capability was not known. Given this presentation, a "code Stroke" was called. When family arrived and the patient had returned from CT then it was learned that the patient was at her baseline according to the family.. Historical: - Allergies: 07/13 09:53 No Known Allergies; sv - PMHx: 09:53 CVA; Diabetes - NIDDM; bed bound; G Tube; Hypertension; nonverbal; NPO, aspiration; sv - PSHx: 09:53 Toe amputations; sv - Immunization history:: Adult Immunizations unknown. - Social history:: Smoking status: Patient/guardian denies using tobacco. - Ebola Screening: : No symptoms or risks identified at this time. ROS: 07/14 08:16 Constitutional: Unable to obtain from the patinet as she is non-verbal on an initial kdr exam. When family arrived, they were able to give further information and ROS information. The code stroke was canceled at that time Eyes: Negative for injury, pain, redness, and discharge, Cardiovascular: Negative for chest pain, palpitations, and edema, Respiratory: Negative for shortness of breath, cough, wheezing, and pleuritic chest pain, Abdomen/GI: Negative for abdominal pain, nausea, vomiting, diarrhea, and constipation, Skin: Negative for injury, rash, and discoloration. Neuro: Positive for altered mental status. Exam: 08:16 Constitutional: This is a well developed, poorly nourished patient who is awake, kdr alert, and in no acute distress. She does seem to be emotional and cries when she is asked questions. She responds at her baseline according to family Head/Face: Normocephalic, atraumatic. Eyes: Pupils equal round and reactive to light, extra-ocular motions intact. Lids and lashes normal. Conjunctiva and sclera are non-icteric and not injected. Cornea within normal limits. Periorbital areas with no swelling, redness, or edema. Neck: Trachea midline, no thyromegaly or masses palpated, and no cervical lymphadenopathy. Supple, full range of motion without nuchal rigidity, or vertebral point tenderness. No Meningismus. Chest/axilla: Normal chest wall appearance and motion. Nontender with no deformity. No lesions are appreciated. Cardiovascular: Regular rate and rhythm with a normal S1 and S2. No gallops, murmurs, or rubs. Normal PMI, no JVD. No pulse deficits. Respiratory: Lungs have equal breath sounds bilaterally, clear to auscultation and percussion. No rales, rhonchi or wheezes noted. No increased work of breathing, no retractions or nasal flaring. Abdomen/GI: Soft, non-tender, with normal bowel sounds. No distension or tympany. No guarding or rebound. No evidence of tenderness throughout. Back: No spinal tenderness. No costovertebral tenderness. Full range of motion. Skin: Warm, dry with normal turgor. Normal color with no rashes, no lesions, and no evidence of cellulitis. MS/ Extremity: Pulses equal, no cyanosis. Neurovascular intact. Full, normal range of motion. Psych: Awake, alert, with orientation to person, place and time. Behavior, mood, and affect are within normal limits. 08:16 Neuro: The patient is moving all extremities and appears to be at baseline per family. Vital Signs: 07/13 09:54 BP 95 / 82; Pulse 113; Resp 24; Temp 96.5(A); Pulse Ox 97% on R/A; Weight 54.43 kg; ph 10:15 BP 110 / 69; Pulse 106; Resp 21; Pulse Ox 97% ; sv 10:30 BP 113 / 64; Pulse 98; Resp 21; Pulse Ox 100% ; sv 12:00 BP 107 / 72; Pulse 94; Resp 20; Pulse Ox 99% on R/A; ph 13:13 BP 109 / 68; Pulse 100; Resp 18; Pulse Ox 100% ; sv 15:03 BP 109 / 75; Pulse 98; Resp 18; Pulse Ox 98% on R/A; ph 16:07 BP 109 / 72; Pulse 108; Resp 18; Temp 97.8; Pulse Ox 100% on R/A; ph MDM: 12:59 Patient medically screened. kdr 07/14 08:16 Data reviewed: vital signs, nurses notes, lab test result(s), radiologic studies. kdr Counseling: I had a detailed discussion with the patient and/or guardian regarding: the historical points, exam findings, and any diagnostic results supporting the discharge/admit diagnosis, lab results, radiology results, the need for further work-up and treatment in the hospital. 07/13 09:52 Order name: Basic Metabolic Panel; Complete Time: 12:51 ss 07/13 09:52 Order name: CBC with Diff; Complete Time: 12:51 ss 07/13 09:52 Order name: Protime (+inr); Complete Time: 12:51 ss 07/13 09:52 Order name: Ptt, Activated; Complete Time: 12:51 ss 07/13 10:08 Order name: Glucose, Ancillary Testing; Complete Time: 12:51 EDMS 07/13 10:10 Order name: Blood Culture Adult (2) kdr 07/13 09:52 Order name: CT Stroke Brain w/o Contrast; Complete Time: 12:51 ss 07/13 09:52 Order name: Stroke CXR 1 View; Complete Time: 12:51 ss 07/13 10:08 Order name: Brain Wo Cont; Complete Time: 12:51 EDMS 07/13 10:10 Order name: Lactate; Complete Time: 12:51 kdr 07/13 11:11 Order name: Urine Culture ph 07/13 11:11 Order name: Urine Microscopic Only; Complete Time: 12:51 ph 07/13 11:21 Order name: Urine Dipstick--Ancillary (enter results); Complete Time: 12:51 bd 07/13 09:52 Order name: EKG; Complete Time: 09:53 ss 07/13 09:52 Order name: Accucheck; Complete Time: 10:12 ss 07/13 09:52 Order name: Cardiac monitoring; Complete Time: 10:08 ss 07/13 09:52 Order name: EKG - Nurse/Tech; Complete Time: 10:40 ss 07/13 09:52 Order name: IV Saline Lock; Complete Time: 10: ss 07/13 09:52 Order name: Labs collected and sent; Complete Time: 10: ss 07/13 09:52 Order name: NPO; Complete Time: 10: ss 07/13 09:52 Order name: O2 Per Protocol; Complete Time: 10: ss 07/13 09:52 Order name: O2 Sat Monitoring; Complete Time: 10: ss 07/13 09:52 Order name: Stroke Swallow Screen; Complete Time: 10:31 ss 07/13 11:11 Order name: Straight Cath - Urine; Complete Time: 11:26 ph Administered Medications: 07/13 11:50 Drug: Cefepime 1 grams Route: IVPB; Rate: 200 ml/hr; Infused Over: 30 mins; Site: right ph antecubital; 12:25 Follow up: Response: No adverse reaction; IV Status: Completed infusion ph 12:20 Drug: vancoMYCIN 1 grams Route: IVPB; Infused Over: 2 hrs; Site: left antecubital; ph 14:30 Follow up: Response: No adverse reaction; IV Status: Completed infusion ph Point of Care Testing: Blood Glucose: 09:54 Blood Glucose: 196 mg/dL; ph Ranges: Critical Glucose Levels:Adult <50 mg/dl or >400 mg/dl <40 mg/dl or >180 mg/dl Disposition: 07/13/19 12:59 Hospitalization ordered by Jose Miguel Woodson for Observation. Preliminary diagnosis are Hypotension, unspecified, Altered mental status, unspecified, Open wound of foot. - Bed requested for Telemetry/MedSurg (observation). - Status is Observation. ph - Condition is Fair. - Problem is new. - Symptoms have improved. UTI on Admission? Yes Signatures: Dispatcher [employer] Shobha Gerard RN RN sv Rittger, Kevin, MD MD kdr Smirch, Shelby, RN RN ss Hall, Patricia, RN RN Aba Conde, RN RN ja1 Corrections: (The following items were deleted from the chart) 15:59 12:59 Hospitalization Ordered by Jose Miguel Woodson for Observation. Preliminary diagnosis ja1 is Hypotension, unspecified; Altered mental status, unspecified; Open wound of foot. Bed requested for Telemetry/MedSurg (observation). Status is Observation. Condition is Fair. Problem is new. Symptoms have improved. UTI on Admission? Yes. [facility] 16:49 15:59 07/13/2019 12:59 Hospitalization Ordered by Jose Miguel Woodson for Observation. ph Preliminary diagnosis is Hypotension, unspecified; Altered mental status, unspecified; Open wound of foot. Bed requested for Telemetry/MedSurg (observation). Status is Observation. Condition is Fair. Problem is new. Symptoms have improved. UTI on Admission? Yes. ja1
--- NOTE | 2019-07-13 13:01 | ER ---
Nurse's Notes [facility] Name: Juana Navarro Age: 59 yrs Sex: Female : 1960 Arrival Date: 07/13/2019 Time: 09:51 Bed 3 Private MD: Diagnosis: Hypotension, unspecified;Altered mental status, unspecified;Open wound of foot Presentation: 07/13 09:50 An acute neurological deficit is present. Pre-hospital glucose is not applicable to ph this patient. Onset of symptoms was July 13, 2019. Risk Assessment: Do you want to hurt yourself or someone else?. Initial Sepsis Screen: Does the patient meet any 2 criteria? RR > 20 per min. HR > 90 bpm. Care prior to arrival: None. 09:50 Acuity: DAVID 1 09:50 Initial Sepsis Screen: Does the patient have a suspected source of infection? No. ph Patient's initial sepsis screen is negative. 10:01 Presenting complaint: Pt brought to ED by wound healing nurse, reports that pt was in ph waiting room and became unresponsive, BP low w/ systolic in 60s, hx of CVAs w/ bilateral deficits. Transition of care: patient was received from another setting of care (ambulatory specialty care practice), Wound healing. 10:01 Method Of Arrival: Wheelchair ph Stroke Activation: Symptom onset < 3 hours Physician: Stroke Attending; Name: ; Notified At: ; Arrived At: Physician: Chief Stroke Resident; Name: ; Notified At: ; Arrived At: Physician: Stroke Resident; Name: ; Notified At: ; Arrived At: Physician: ED Attending; Name: Norma; Notified At: ; Arrived At: Physician: ED Resident; Name: ; Notified At: ; Arrived At: Historical: - Allergies: 09:53 No Known Allergies; sv - PMHx: 09:53 CVA; Diabetes - NIDDM; bed bound; G Tube; Hypertension; nonverbal; NPO, aspiration; sv - PSHx: 09:53 Toe amputations; sv - Immunization history:: Adult Immunizations unknown. - Social history:: Smoking status: Patient/guardian denies using tobacco. - Ebola Screening: : No symptoms or risks identified at this time. Screenin:29 Abuse screen: Denies threats or abuse. Denies injuries from another. Nutritional ph screening: Difficulty chewing/swallowing? Yes feeding tube in place. Tuberculosis screening: No symptoms or risk factors identified. Fall Risk No fall in past 12 months (0 pts). Secondary diagnosis (15 points) impaired mobility, CVA, IV access (20 points). Ambulatory Aid- None/Bed Rest/Nurse Assist (0 pts). Gait- Impaired (20 pts.). Mental Status- Overestimates/Forgets Limitations (15 pts.). Total Cohen Fall Scale indicates High Risk Score (45 or more points). Fall prevention measures have been instituted. Side Rails Up X 2 Placed Close to Nursing Station Frequent Obs/Assessments Occuring Family Present and informed to notify staff if the need to leave the bedside As available patient and family educated on Fall Prevention Program and Strategies. Assessment: 09:49 Neuro: Level of Consciousness is unresponsive, Oriented to none. Cardiovascular: ph Capillary refill < 3 seconds. Respiratory: Airway is patent Respiratory effort is shallow, Respiratory pattern is tachypnea. GI: PEG tube in place, clamped. Site reddened. Derm: Skin is fragile, is thin. Musculoskeletal: drains noted to bilateral feet. 09:49 Derm: Wound noted Other: Wounds noted to tops of bilateral feet, wound vac ph dressings/drains in place. 09:50 Reassessment: Code Stroke called, Dr Green at the bedside with ZOE RN and Heike RN. sv 09:52 Reassessment: Pt to CT via strecher by ZOE MATIAS. sv 10:00 Reassessment: Unable to complete NIHS scoring r/t pt hx of CVA w/ bilateral deficits, ph family reports that pt is bed bound, with bilateral extremity weakness and aphasic at baseline. 10:00 VAN Scoring:. Reassessment: unable to complete VAN scoring r/t bilateral deficits from ph previous CVAs. 10:05 General: Appears in no apparent distress. comfortable, slender, Behavior is ph unresponsive. Pain: Unable to use pain scale. Patient is unresponsive. 10:27 Patient has been NPO before screening. The patient is alert, and able to follow ph commands. The patient exhibits slurred or garbled speech. The patient is exhibiting difficulty speaking. The patient does not exhibit difficulty understanding words. The patient is able to swallow own secretions with no drooling or need for suction. The patient failed the bedside swallow screening. The patient will be kept NPO until cleared by Speech Therapy or Physician. Provider notified of bedside swallow screening results: Billy Green MD. 10:53 Reassessment: Patient appears in no apparent distress at this time. Patient and/or ph family updated on plan of care and expected duration. Pain level reassessed. Pt more alert and responsive, BP improved to 113 systolic, pt cleaned of BM and attempted to obtain urine via straight cath, no urine return noted. 11:10 Reassessment: Urine noted to be very cloudy, received verbal order from Dr Green for urine micro and culture. 11:15 Reassessment: Pt taken to MRI via stretcher. ph 11:48 Reassessment: Pt returned from MRI, positioned onto R side w/ pillows behind back, pt ph denies nausea at this time, c/o pain to L foot. 12:30 Reassessment: Patient appears in no apparent distress at this time. Patient and/or ph family updated on plan of care and expected duration. Pain level reassessed. 13:36 Reassessment: Patient appears in no apparent distress at this time. Patient and/or ph family updated on plan of care and expected duration. Pain level reassessed. Pt resting comfortably, awaiting room assignment. 14:30 Reassessment: Patient appears in no apparent distress at this time. No changes from previously documented assessment. Patient and/or family updated on plan of care and expected duration. Pain level reassessed. 15:30 Reassessment: Patient appears in no apparent distress at this time. Dr Woodson at bedside to assess pt, awaiting room assignment, VSS. 16:27 Reassessment: Patient appears in no apparent distress at this time. Patient and/or ph family updated on plan of care and expected duration. Pain level reassessed. Report called to second floor. Vital Signs: 09:54 BP 95 / 82; Pulse 113; Resp 24; Temp 96.5(A); Pulse Ox 97% on R/A; Weight 54.43 kg; ph 10:15 BP 110 / 69; Pulse 106; Resp 21; Pulse Ox 97% ; sv 10:30 BP 113 / 64; Pulse 98; Resp 21; Pulse Ox 100% ; sv 12:00 BP 107 / 72; Pulse 94; Resp 20; Pulse Ox 99% on R/A; ph 13:13 BP 109 / 68; Pulse 100; Resp 18; Pulse Ox 100% ; sv 15:03 BP 109 / 75; Pulse 98; Resp 18; Pulse Ox 98% on R/A; ph 16:07 BP 109 / 72; Pulse 108; Resp 18; Temp 97.8; Pulse Ox 100% on R/A; ph ED Course: 09:51 Patient arrived in ED. ss 09:52 Billy Green MD is Attending Physician. kdr 09:52 Patient has correct armband on for positive identification. Bed in low position. Side sv rails up X2. personnel monitor on. Pulse ox on. NIBP on. 09:58 CT Stroke Brain w/o Contrast In Process Unspecified. EDMS 10:05 Triage completed. ph 10:05 Inserted saline lock: 22 gauge in right forearm, using aseptic technique. ph 10:10 Elisa Powell, RN is Primary Nurse. ph 10:13 EKG done, by airplane technician. reviewed by Billy Green MD. at1 10:28 Arm band placed on left wrist. ph 10:33 Stroke CXR 1 View In Process Unspecified. EDMS 10:41 Awaiting lab results, Awaiting re-evaluation by ER provider. sv 10:56 Straight cath inserted, using sterile technique, 16 Fr. Patient tolerated well. ph 11:22 Brain Wo Cont In Process Unspecified. EDMS 12:58 Jose Miguel Woodson is Hospitalizing Provider. kdr 16:29 No provider procedures requiring assistance completed. Patient admitted, IV remains in ph place. Administered Medications: 11:50 Drug: Cefepime 1 grams Route: IVPB; Rate: 200 ml/hr; Infused Over: 30 mins; Site: right ph antecubital; 12:25 Follow up: Response: No adverse reaction; IV Status: Completed infusion ph 12:20 Drug: vancoMYCIN 1 grams Route: IVPB; Infused Over: 2 hrs; Site: left antecubital; ph 14:30 Follow up: Response: No adverse reaction; IV Status: Completed infusion ph Point of Care Testing: Blood Glucose: 09:54 Blood Glucose: 196 mg/dL; ph Ranges: Outcome: 12:59 Decision to Hospitalize by Provider. kdr 16:49 Patient left the ED. ph 16:49 Admitted to Tele accompanied by tech, via stretcher, with chart. ph 16:49 Condition: stable 16:49 Instructed on the need for admit. Signatures: Dispatcher [employer] EDMS Coffman Shobha, POLLY RN sv Billy Green MD MD [facility] Heike Maurice RN RN ss Ebonie Shore, computer consultant EKG Tat1 Elisa Powell RN RN ph Corrections: (The following items were deleted from the chart) 10:56 09:54 BP 95 / 82; Pulse 113bpm; Resp 24bpm; Pulse Ox 97% RA; 54.43 kg; ph ph
[2019-07-13] MEDS ORDERED: NA CHLORIDE 0.9% 500 ML IV ONE (16:52)
[2019-07-13] MEDS ORDERED: ONDANSETRON 4 MG/2 ML VIAL IV PRN (16:52)
[2019-07-13] MEDS ORDERED: ACETAMINOPHEN 500 MG TAB PO PRN (16:52)
[2019-07-13] MEDS: ENOXAPARIN 40 MG/0.4 ML SQ SCH (18:07)
[2019-07-13] MEDS: NA CHLORIDE 0.9% 1,000 ML IV SCH (18:07)
--- NOTE | 2019-07-13 19:09 | P.HP ---
Certification for Inpatient Patient admitted to: Inpatient With expected LOS: >2 Midnights Practitioner: I am a practitioner with admitting privileges, knowledge of patient current condition, hospital course, and medical plan of care. Services: Services provided to patient in accordance with Admission requirements found in Title 42 Section 412.3 of the Code of Federal Regulations Patient History Date of Service: 07/13/19 Reason for admission: Altered mental status. History of Present Illness: 59-year-old fdc resident with a history of diabetes mellitus, chronic diabetic foot ulcer status post multiple toe amputations, with wound VACs applied, history of CVA with residual dysphasia was transferred from the [facility] to the emergency department due to sudden decrease in mental status. Patient was suspected to have CVA. Stroke alert was called in the ED. CT head was negative for acute stroke. UA suggest the presence of UTI. Patient noted to be afebrile hypotensive, and CBC demonstrating leukocytosis. Lactic acid within normal limit. She is nonverbal and cannot provide any history. Patient given a bolus of normal saline and admitted for further management. Allergies No Known Allergies Allergy (Verified 09/05/16 23:23) Home Medications: Glucerna 1.5 Vikas 237 ml FT QID #90 bot 02/10/18 Atorvastatin Calcium [Lipitor*] 20 mg FT BEDTIME #30 tab 11/14/18 Collagenase [Santyl Ointment*] 1 appl TOP DAILY #1 tube 11/14/18 Hydralazine [Apresoline*] 25 mg PO BID #60 tab 11/14/18 Lisinopril [Prinivil*] 20 mg FT BID #60 tab 11/14/18 Metformin HCl 1,000 mg FT BID #60 tablet 11/14/18 Metoprolol Tartrate [Lopressor*] 50 mg FT BID 6AM 6PM #60 tab 11/14/18 traMADol HCL [Ultram*] 50 mg FT TID PRN #15 tab 11/14/18 Smz./Tmp. [Bactrim Ds 800 MG/160 MG] 1 each PO BID 14 Days #28 tab 04/08/19 Tramadol HCl [Ultram] 50 mg PO TID PRN #20 tablet 04/08/19 Valacyclovir [Valtrex*] 500 mg PO BID 7 Days #14 tab 04/14/19 - Past Medical/Surgical History Diabetic: Yes -: Hx CVA with residual aphasia -: HTN -: Hyperlipidemia -: Neuropathy -: DM -: History of dysphagia now with PEG tube -: Hysterectomy -: PEG tube placement Psychosocial/ Personal History: Patient lives at home. She has several children. She is . - Family History Mother -: Stroke Father -: Heart disease - Social History Alcohol use: No CD- Drugs: No Caffeine use: No Review of Systems is unable to be obtained (Patient is nonverbal) Physical Examination - Vital Signs Temperature: 98.0 F Blood Pressure: 99/58 Pulse: 101 Respirations: 18 Pulse Ox (%): 96 - Physical Exam General: In no apparent distress, Other (Awake) HEENT: Atraumatic, Normocephalic, Mucous membr. moist/pink Neck: Supple, 2+ carotid pulse no bruit, JVD not distended Respiratory: Clear to auscultation bilaterally, Normal air movement Cardiovascular: No edema, Normal pulses, Regular rate/rhythm, Normal S1 S2, No murmurs Capillary refill: <2 Seconds Gastrointestinal: Normal bowel sounds, Soft and benign, Non-distended, No tenderness, Other (PEG tube) Musculoskeletal: Contractures Integumentary: Pressure ulcer (Stage II sacral decubitus ulcer), Other ( Multiple toe amputations, bilateral feet, wound vacs applied to both feet) Neurological: Other (Aphasic, moves all extremities spontaneously) - Studies Laboratory Data (last 24 hrs) 07/13/19 10:03: PT 13.4 H, INR 1.14, APTT 29.8 07/13/19 10:03: WBC 13.8 H, Hgb 11.0 L, Hct 33.0 L, Plt Count 544 H D 07/13/19 10:03: Sodium 138, Potassium 4.6, BUN 34 H, Creatinine 1.19, Glucose 201 H Assessment and Plan - Problems (Diagnosis) (1) Sepsis Current Visit: Yes Status: Acute (2) Acute cystitis without hematuria Current Visit: Yes Status: Acute (3) Chronic ulcer of toes Current Visit: Yes Status: Chronic (4) Amputation of toe Current Visit: No Status: Chronic Qualifiers: Laterality: left Qualified Code(s): S98.132A - Complete traumatic amputation of one left lesser toe, initial encounter (5) Dysphagia Current Visit: No Status: Chronic Qualifiers: Dysphagia type: unspecified Qualified Code(s): R13.10 - Dysphagia, unspecified (6) History of CVA with residual deficit Current Visit: No Status: Chronic (7) PEG (percutaneous endoscopic gastrostomy) status Current Visit: No Status: Chronic (8) Altered mental status Current Visit: Yes Status: Acute (9) Diabetes Current Visit: No Status: Acute Qualifiers: Diabetes mellitus type: type 2 Diabetes mellitus lobsterman insulin use: without alf use Diabetes mellitus complication status: with circulatory complication Diabetes mellitus complication detail: with peripheral angiopathy without gangrene Qualified Code(s): E11.51 - Type 2 diabetes mellitus with diabetic peripheral angiopathy without gangrene - Plan Admit to general medical floor Will started IV Cefepime Follow urine culture and blood cultures obtained in the ED. IV hydration with normal saline Monitor urine output Monitor blood pressure closely Telemetry Wound care consult for wound care Insulin sliding scale for glucose management PEG tube feeding. Monitor CBC and BMP. - Advance Directives Does patient have a Living Will: No Does patient have a Durable POA for Healthcare: No
[2019-07-13] MEDS ORDERED: D50W 25 GM/50 ML SYRINGE/VIAL IV PRN (19:16)
[2019-07-13] MEDS ORDERED: GLUCAGON 1 MG/VIAL IM PRN (19:16)
[2019-07-13 20:10] VITALS: BMI 23.3
[2019-07-13] MEDS: CEFEPIME/SWI 1gm 10 ML IVP SCH (20:22)
[2019-07-13] MEDS ORDERED: CEFEPIME 1 GM/VIAL IV SCH (21:00)
[2019-07-13] MEDS: INSULIN -REGULAR HUMAN 50 UNIT/0.5 ML ML SQ SCH (21:00)
[2019-07-13] MEDS: GLUCERNA 1.5 CAL 1,000 ML BOT FT SCH (22:30)
[2019-07-14] MEDS: NA CHLORIDE 0.9% 1,000 ML IV SCH ×3 (03:50→23:15)
[2019-07-14 05:40] LABS: Absolute Lymphocytes (CBC) 1.8 K/uL (0.7-4.9); Basophils % 0.6 % (0-1.3); Hematocrit 27.4 % (36.0-45.0); Lymphocytes % 16.9 % (15.3-44.8); MPV 7.7 fL (7.6-11.3); RBC Red Blood Cell Count 3.21 M/uL (3.86-4.86)
[2019-07-14 06:01] LABS: Magnesium 1.8 mg/dL (1.8-2.4); Phosphorus 2.8 mg/dL (2.5-4.9); Potassium 4.1 mmol/L (3.5-5.1)
[2019-07-14] MEDS: INSULIN -REGULAR HUMAN 50 UNIT/0.5 ML ML SQ SCH ×4 (07:30→22:26)
[2019-07-14] MEDS: ENOXAPARIN 40 MG/0.4 ML SQ SCH (09:54)
[2019-07-14] MEDS: GLUCERNA 1.5 CAL 1,000 ML BOT FT SCH ×4 (09:54→22:40)
[2019-07-14] MEDS: CEFEPIME/SWI 1gm 10 ML IVP SCH ×2 (09:55→21:02)
--- NOTE | 2019-07-14 14:58 | P.PN ---
Subjective Date of Service: 07/14/19 Chief Complaint: Altered mental status. Patient blood pressure readings have improved and remained stable since hospitalization. She is more interactive today. She has been afebrile. No reported diarrhea, nausea or vomiting. I met patient 's siblings by her bedside. Physical Examination - Vital Signs Temperature: 97.8 F Blood Pressure: 119/74 Pulse: 91 Respirations: 18 Pulse Ox (%): 97 - Physical Exam General: In no apparent distress, Other HEENT: Mucous membr. moist/pink Neck: Supple, JVD not distended Respiratory: Clear to auscultation bilaterally, Normal air movement Cardiovascular: No edema, Regular rate/rhythm, Normal S1 S2 Capillary refill: <2 Seconds Gastrointestinal: Normal bowel sounds, Soft and benign, Non-distended, No tenderness Musculoskeletal: Contractures (Lower extremity) Integumentary: Diabetic ulcer (Status post multiple toe amputations on bilateral foot. Chronic nonhealing toe amputation stumps.) Neurological: Other (Bed-bound) - Studies Microbiology Data (last 24 hrs): 07/13/19 10:08 Blood - Blood Gram Stain - Final Assessment And Plan - Current Problems (Diagnosis) (1) Sepsis Current Visit: Yes Status: Acute (2) Acute cystitis without hematuria Current Visit: Yes Status: Acute (3) Chronic ulcer of toes Current Visit: Yes Status: Chronic (4) Amputation of toe Current Visit: No Status: Chronic Qualifiers: Laterality: left Qualified Code(s): S98.132A - Complete traumatic amputation of one left lesser toe, initial encounter (5) Dysphagia Current Visit: No Status: Chronic Qualifiers: Dysphagia type: unspecified Qualified Code(s): R13.10 - Dysphagia, unspecified (6) History of CVA with residual deficit Current Visit: No Status: Chronic (7) PEG (percutaneous endoscopic gastrostomy) status Current Visit: No Status: Chronic (8) Altered mental status Current Visit: Yes Status: Acute (9) Diabetes Current Visit: No Status: Acute Qualifiers: Diabetes mellitus type: type 2 Diabetes mellitus correction insulin use: without watermaster use Diabetes mellitus complication status: with circulatory complication Diabetes mellitus complication detail: with peripheral angiopathy without gangrene Qualified Code(s): E11.51 - Type 2 diabetes mellitus with diabetic peripheral angiopathy without gangrene - Plan Continue IV Cefepime Continue IV hydration with normal saline Monitor urine output Patient to be seen and evaluated by Wound care team. Consult has been placed Insulin sliding scale for glucose management PEG tube feeding with Glucerna. Freewater flushes via PEG. Monitor CBC and BMP. Occupational therapy for limb contractures.
[2019-07-15] MEDS: INSULIN -REGULAR HUMAN 50 UNIT/0.5 ML ML SQ SCH ×4 (07:30→22:59)
[2019-07-15] MEDS: NA CHLORIDE 0.9% 1,000 ML IV SCH ×2 (09:11→18:09)
[2019-07-15] MEDS: GLUCERNA 1.5 CAL 1,000 ML BOT FT SCH ×4 (09:12→22:56)
[2019-07-15] MEDS: ENOXAPARIN 40 MG/0.4 ML SQ SCH (09:15)
[2019-07-15] MEDS: CEFEPIME/SWI 1gm 10 ML IVP SCH ×2 (09:15→22:56)
--- NOTE | 2019-07-15 11:07 | P.PN ---
Subjective Date of Service: 07/15/19 Chief Complaint: Altered mental status. Patient is doing much better. She had an uneventful night. Patient blood pressure readings have improved and remained stable since hospitalization. She is quite interactive though non-verbal. She has been afebrile. No reported diarrhea, nausea or vomiting. Physical Examination - Vital Signs Temperature: 97.6 F Blood Pressure: 120/58 Pulse: 86 Respirations: 18 Pulse Ox (%): 95 - Physical Exam General: In no apparent distress, Other (Nonverbal) HEENT: Mucous membr. moist/pink Neck: Supple, JVD not distended Respiratory: Clear to auscultation bilaterally, Normal air movement Cardiovascular: No edema, Regular rate/rhythm, Normal S1 S2 Gastrointestinal: Normal bowel sounds, Soft and benign, Non-distended, Other ( PEG tube) Musculoskeletal: Contractures (Bilateral knees) Neurological: Other Urinary: Shah catheter (Awake, Nonverbal.) - Studies Microbiology Data (last 24 hrs): 07/13/19 11:05 Catheterized Urine [place] Count - Final >100,000 CFU/ML. 07/13/19 11:05 Catheterized Urine - Final 07/13/19 10:08 Blood - Blood Gram Stain - Final Assessment And Plan - Current Problems (Diagnosis) (1) Sepsis Current Visit: Yes Status: Acute (2) Acute cystitis without hematuria Current Visit: Yes Status: Acute (3) Chronic ulcer of toes Current Visit: Yes Status: Chronic (4) Amputation of toe Current Visit: No Status: Chronic Qualifiers: Laterality: left Qualified Code(s): S98.132A - Complete traumatic amputation of one left lesser toe, initial encounter (5) Dysphagia Current Visit: No Status: Chronic Qualifiers: Dysphagia type: unspecified Qualified Code(s): R13.10 - Dysphagia, unspecified (6) History of CVA with residual deficit Current Visit: No Status: Chronic (7) PEG (percutaneous endoscopic gastrostomy) status Current Visit: No Status: Chronic (8) Altered mental status Current Visit: Yes Status: Acute (9) Diabetes Current Visit: No Status: Acute Qualifiers: Diabetes mellitus type: type 2 Diabetes mellitus alf insulin use: without alf use Diabetes mellitus complication status: with circulatory complication Diabetes mellitus complication detail: with peripheral angiopathy without gangrene Qualified Code(s): E11.51 - Type 2 diabetes mellitus with diabetic peripheral angiopathy without gangrene - Plan Continue IV Cefepime. Will transition to oral Cefpodoxime on discharge. Plan on 5 days of antibiotic therapy. Patient is tolerating PEG tube feeding. Discontinue IV fluid. Monitor urine output Doctor El informed to evaluate patient's ulcers. Insulin sliding scale for glucose management PEG tube feeding with Glucerna. Freewater flushes via PEG. Dr. Matthews consulted for PEG tube change. Monitor CBC and BMP. Occupational therapy for limb contractures.
[2019-07-15] MEDS: TRAMADOL HCL 50 MG TAB FT PRN (17:54)
[2019-07-15] MEDS: ATORVASTATIN 20 MG TAB FT SCH (22:56)
[2019-07-15] MEDS: VALACYCLOVIR 500 MG TAB FT SCH (22:56)
--- NOTE | 2019-07-16 00:18 | CON ---
Date of Consultation: 07/15/2019 Diagnosis: Bilateral foot diabetic ulcer necrotic wound. History Of Present Illness: This is the case of a 59-year-old patient, known by us due to history of bilateral lower extremity necrotic ulcers. Patient had been [facility]. She came with hypotension could not be seen in the [facility] so she was admitted to [facility] and a surgical consult was obtained from the hospital. She cannot give any information. She responds to command, but she does not give the story perfect, but we have see the patient in the past and also go through the chart and talked to the primary doctor. The family is not present at [facility] moment. Allergies: NONE. Medical History: Include CVAs with aphasia, hypertension, hyperlipidemia, neuropathy, diabetes, dysp hagia with PEG tube. Past Surgical History: Include PEG tube placement, hysterectomy. Family History: Includes stroke and heart disease. Social History: She does not drink, she does not smoke. Review of Systems: Unable to be obtained, the patient is nonverbal. Physical Examination: Constitutional: Patient is awake and alert. HEENT: Pupils anicteric. Respiratory: Clear to auscultation. Abdomen: Soft and depressible. PEG tube in place. Rectal: Deferred. Pelvic: Deferred. Genitalia: Deferred. Extremities: Over the right foot patient has a right foot with necrotic diabetic ulcer. The metatar medardo bones are coming through it. She has been doing some dressing changes over that area apparently in the last week, it is getting worse. This patient most likely will need an amputation of that foot , at least below-knee amputation. Over the left foot region patient has also some ulcers that needs some debridement. In her case we still have to clean that area, might need an amputation in the futu re. Dorsalis pedis pulses bilaterally are chronically not in system. Patient has neuropathies. Laboratory Data: Blood work shows a WBC count of 13.8 with hemoglobin of 11, INR is 1.14, chloride i s 108, creatinine is 0.7. Assessment And Plan: This is a 59-year-old patient with necrotic ulcers in bilateral feet, at least the right side, bones are showing up. I do not think this is going to heal, I believe a decision kennedy l have to be made to do at least a right below-knee amputation. It was discussed with her this optio n previously in the [facility] with the family. Right now once again we explained that to her, but we do not have any commitment for a consent yet. In the mean time we are doing wet-to-dry d ressing, I do not think we can do the wound VAC anymore at this moment. We are going to continue wet to dry and the consent for amputation were discussed once again with benefits, alternatives, and ris ks including, but not limited to infection, bleeding, damage to adjacent structures, anesthesia compl ication, LA, even . I discussed the case also with the primary doctor to help us with the clear ance for this patient. We going to keep the patient n.p.o. after midnight. Once again we discussed with family to see if they can least commit on the right foot we believe which is a point of no retur n. We are also going to get involve cardiology since the patient has history of peripheral vascular disease to give us a clearance. I discussed the case also with anesthesia for possible case that [facility] ht be going soon. BERTO/RICHI Voice ID: [id number] Report ID: [id number]
[2019-07-16] MEDS: NA CHLORIDE 0.9% 1,000 ML IV SCH ×2 (03:46→14:52)
[2019-07-16] MEDS: TRAMADOL HCL 50 MG TAB FT PRN (03:47)
[2019-07-16 06:26] LABS: BUN Blood Urea Nitrogen 19 mg/dL (7-18); Bicarbonate 27 mmol/L (21-32); Glucose Level 101 mg/dL (74-106); Potassium 4.2 mmol/L (3.5-5.1); Sodium Level 140 mmol/L (136-145)
[2019-07-16 06:41] LABS: Absolute Lymphocytes (CBC) 1.8 K/uL (0.7-4.9); Basophils % 0.5 % (0-1.3); Hematocrit 27.2 % (36.0-45.0); Lymphocytes % 17.8 % (15.3-44.8); RBC Red Blood Cell Count 3.18 M/uL (3.86-4.86)
[2019-07-16] MEDS: INSULIN -REGULAR HUMAN 50 UNIT/0.5 ML ML SQ SCH ×4 (07:30→20:20)
[2019-07-16] MEDS ORDERED: Meropenem 500 MG VIAL IV SCH (09:00)
[2019-07-16] MEDS: ENOXAPARIN 40 MG/0.4 ML SQ SCH ×2 (09:00→17:29)
[2019-07-16] MEDS: Meropenem 500 MG in NA CHLORIDE 0.9% 100 ML IV SCH ×2 (10:15→17:30)
[2019-07-16] MEDS: GLUCERNA 1.5 CAL 1,000 ML BOT FT SCH ×4 (10:16→20:19)
[2019-07-16] MEDS: VALACYCLOVIR 500 MG TAB FT SCH ×2 (10:16→20:19)
[2019-07-16] MEDS: Pantoprazole (granules) 40 MG/BLIST PACKET FT SCH (10:16)
[2019-07-16] MEDS: CLOPIDOGREL 75 MG TABLET FT SCH (10:17)
--- NOTE | 2019-07-16 10:48 | ECHO ---
HEIGHT: 5 ft 0 in WEIGHT: 119 lb 11.84 oz DATE OF STUDY: 07/16/[address]: Waqar Stark MD 2-DIMENSIONAL: YES M.MODE: YES DOPPLER: YES COLOR FLOW: YES TDS: NO PORTABLE: NO DEFINITY: NO BUBBLE STUDY: NO DIAGNOSIS: CEREBRAL VASCULAR ACCIDENT, CLEARANCE CARDIAC HISTORY: CATHERIZATION: NO SURGERY: NO PROSTHETIC VALVE: NO PACEMAKER: NO MEASUREMENTS (cm) DIASTOLIC (NORMALS) SYSTOLIC (NORMALS) IVSd 0.9 (0.6-1.2) LA Diam 3.3 (1.9-4.0) LVEF 63% LVIDd 4.0 (3.5-5.7) LVIDs 2.6 (2.0-3.5) %FS 34% LVPWd 1.1 (0.6-1.2) Ao Diam 2.5 (2.0-3.7) 2 DIMENSIONAL ASSESSMENT: RIGHT ATRIUM: NORMAL LEFT ATRIUM: NORMAL RIGHT VENTRICLE: NORMAL LEFT VENTRICLE: NORMAL TRICUSPID VALVE: NORMAL MITRAL VALVE: NORMAL PULMONIC VALVE: NORMAL AORTIC VALVE: SCLEROSIS PERICARDIAL EFFUSION: NONE AORTIC ROOT: NORMAL LEFT VENTRICULAR WALL MOTION: NORMAL DOPPLER/COLOR FLOW: NORMAL COMMENTS: NORMAL LEFT VENTRICULAR SIZE AND FUNCTION. NO WALL MOTION ABNORMALITY. NO EFFUSION. AORTIC SCLEROSIS WITH NO STENOSIS. TECHNOLOGIST: Dao WHITTEN
--- NOTE | 2019-07-16 12:27 | P.PN ---
Subjective Date of Service: 07/16/19 Chief Complaint: Altered mental status. Patient is awake and communicates by shaking or nodding his head. She had an uneventful night. She has been afebrile. No reported diarrhea, nausea or vomiting. She has tolerated PEG tube feeding. Physical Examination - Vital Signs Temperature: 97.3 F Blood Pressure: 153/85 Pulse: 102 Respirations: 17 Pulse Ox (%): 95 - Physical Exam General: In no apparent distress, Other (Awake) HEENT: Atraumatic, Mucous membr. moist/pink Neck: Supple, JVD not distended Respiratory: Clear to auscultation bilaterally, Normal air movement Cardiovascular: No edema, Regular rate/rhythm, Normal S1 S2 Gastrointestinal: Normal bowel sounds, Soft and benign, Other (Peg tube.) Musculoskeletal: Other (Contracted bilateral knees.) Integumentary: Other (Multiple ulcers of bilateral toes. Ulcers dressed.) - Studies Microbiology Data (last 24 hrs): 07/13/19 10:08 Blood - Blood Gram Stain - Final 07/13/19 11:05 Catheterized Urine [place] Count - Final >100,000 CFU/ML. 07/13/19 11:05 Catheterized Urine - Final Assessment And Plan - Current Problems (Diagnosis) (1) Sepsis Current Visit: Yes Status: Acute (2) Acute cystitis without hematuria Current Visit: Yes Status: Acute (3) Chronic ulcer of toes Current Visit: Yes Status: Chronic (4) Amputation of toe Current Visit: No Status: Chronic Qualifiers: Laterality: left Qualified Code(s): S98.132A - Complete traumatic amputation of one left lesser toe, initial encounter (5) Dysphagia Current Visit: No Status: Chronic Qualifiers: Dysphagia type: unspecified Qualified Code(s): R13.10 - Dysphagia, unspecified (6) History of CVA with residual deficit Current Visit: No Status: Chronic (7) PEG (percutaneous endoscopic gastrostomy) status Current Visit: No Status: Chronic (8) Altered mental status Current Visit: Yes Status: Acute (9) Diabetes Current Visit: No Status: Acute Qualifiers: Diabetes mellitus type: type 2 Diabetes mellitus terminologist insulin use: without halfway use Diabetes mellitus complication status: with circulatory complication Diabetes mellitus complication detail: with peripheral angiopathy without gangrene Qualified Code(s): E11.51 - Type 2 diabetes mellitus with diabetic peripheral angiopathy without gangrene - Plan Patient wound culture is growing ESBL E. coli. Antibiotics changed to IV meropenem. Patient ulcers evaluated by Dr. Gallegos and noted to be necrotic. He recommend amputation of his right foot. Patient and family are on board with amputation. Surgery scheduled for today or Friday. Monitor urine output Insulin sliding scale for glucose management PEG tube feeding held for surgery. PEG tube change as outpatient Monitor CBC and BMP.
--- NOTE | 2019-07-16 17:16 | CON ---
Date of Consultation: 07/16/2019 Reason For Consultation: Altered mental status, UTI. History Of Present Illness: I am seeing the patient on 07/16/2019 for cardiac clearance prior to rig ht [id number] amputation for necrotic ulcers bilaterally. Surgery to be done by Dr. Gallegos. I was asked for clearance. No cardiac symptoms reported. Denied chest pain, nausea, vomiting, diapho resis, PND, orthopnea, pedal edema, palpitations, or syncope. Past Medical History: Hypertension, peripheral arterial disease status post toe amputation, dyslipid emia, diabetes. She has had a history of CVA. She is aphasic from that. She has a history of gastr oesophageal reflux disease. She has a PEG tube. Home Medications: Hydralazine, Lipitor, Plavix, lisinopril, metformin and Protonix. Review of Systems: Negative. Social History: Negative. Family History: Noncontributory. Physical Examination: Vital Signs: Stable, afebrile, sinus rhythm. HEENT: Negative. Neck: Supple with no bruit. Chest: Clear. Cardiac: Revealed regular rhythm and rate. No murmurs, gallops, rubs. Abdomen: Benign. Extremity: Revealed necrotic ulcers bilaterally. Neurologic: She was aphasic, slightly confused, somnolent. Diagnostic Data: Revealed a glucose of 179, hemoglobin 9.5. Her EKG showed sinus tachycardia with PACs. Impression And Plan: This is a patient with multiple cardiac risk factors including hypertension, di abetes, dyslipidemia, history of stroke. She is aphasic for med. She has a normal EKG, relatively s peaking. No chest pain. No evidence of congestive heart failure. I think she is cleared for surger y right BKA by Dr. Gallegos. I would like her to get a 2D echocardiogram just to make sure we are no t missing anything. Cardiac nevertheless. Her other problems include history of gastroesophageal re flux disease with placement of PEG tube and severe peripheral arterial disease. We will follow her p ostoperatively. NB/MODL Voice ID: [id number] Report ID: [id number]
[2019-07-16] MEDS: ATORVASTATIN 20 MG TAB FT SCH (20:17)
--- NOTE | 2019-07-16 20:40 | PN ---
Date of Progress Note: 07/16/2019 Diagnosis: Bilateral feet infected diabetic ulcers. Patient is awake, in no distress. Today, we have plans and discussed with the family member and the patient the options once again of right below-knee amputation and surgical debridement of the left fo ot. Patient ate today, so it could not be done, but once again I explained to her like I had been do ing it for the last few weeks, there is need for right below-knee amputation. Benefits and all risks of procedure were fully explained again to the patient and family, which include but are not limited to infection, bleeding, damage to adjacent structures, anesthesia complication, nonhealing wound, RI , and even . She also understands this may not relieve any symptoms, the flap may fail. Also, we might do debridement of the left foot region since we are going to be radial, although if that lei s not heal, in the future, she may end up with the same result. BERTO/RICHI Voice ID: [id number] Report ID: [id number]
[2019-07-17] MEDS: Meropenem 500 MG in NA CHLORIDE 0.9% 100 ML IV SCH ×3 (00:31→17:41)
[2019-07-17] MEDS: NA CHLORIDE 0.9% 1,000 ML IV SCH ×3 (00:56→20:52)
[2019-07-17 06:46] LABS: Absolute Lymphocytes (CBC) 1.4 K/uL (0.7-4.9); Basophils % 0.8 % (0-1.3); Hematocrit 27.9 % (36.0-45.0); Lymphocytes % 13.5 % (15.3-44.8); MPV 7.9 fL (7.6-11.3)
[2019-07-17 07:04] LABS: BUN Blood Urea Nitrogen 16 mg/dL (7-18); Bicarbonate 27 mmol/L (21-32); Glucose Level 120 mg/dL (74-106); Potassium 4.2 mmol/L (3.5-5.1); Sodium Level 141 mmol/L (136-145)
[2019-07-17] MEDS: INSULIN -REGULAR HUMAN 50 UNIT/0.5 ML ML SQ SCH ×4 (07:30→20:52)
[2019-07-17] MEDS: VALACYCLOVIR 500 MG TAB FT SCH ×2 (08:46→20:02)
[2019-07-17] MEDS: CLOPIDOGREL 75 MG TABLET FT SCH (08:46)
[2019-07-17] MEDS: ENOXAPARIN 40 MG/0.4 ML SQ SCH (08:47)
[2019-07-17] MEDS: Pantoprazole (granules) 40 MG/BLIST PACKET FT SCH (08:47)
[2019-07-17] MEDS: GLUCERNA 1.5 CAL 1,000 ML BOT FT SCH ×4 (08:47→20:00)
[2019-07-17] MEDS: VANCOMYCIN/NS 1 gm 1 GM/250 ML BAG IVPB SCH (10:21)
--- NOTE | 2019-07-17 10:29 | P.PN ---
Subjective Date of Service: 07/17/19 Chief Complaint: Altered mental status. Subjective: No new changes She had an uneventful night. She has been afebrile. No reported diarrhea, nausea or vomiting. Physical Examination - Vital Signs Temperature: 97.5 F Blood Pressure: 147/84 Pulse: 94 Respirations: 16 Pulse Ox (%): 95 - Physical Exam General: In no apparent distress HEENT: Mucous membr. moist/pink Neck: Supple, JVD not distended Respiratory: Clear to auscultation bilaterally, Normal air movement Cardiovascular: No edema, Normal pulses, Regular rate/rhythm, Normal S1 S2 Gastrointestinal: Normal bowel sounds, Soft and benign, Non-distended Musculoskeletal: Contractures Integumentary: Other (Stage II sacral decubitus ulcer) - Studies Microbiology Data (last 24 hrs): 07/13/19 10:08 Blood - Blood Gram Stain - Final Assessment And Plan - Current Problems (Diagnosis) (1) Sepsis Current Visit: Yes Status: Acute (2) Acute cystitis without hematuria Current Visit: Yes Status: Acute (3) Chronic ulcer of toes Current Visit: Yes Status: Chronic (4) Amputation of toe Current Visit: No Status: Chronic Qualifiers: Laterality: left Qualified Code(s): S98.132A - Complete traumatic amputation of one left lesser toe, initial encounter (5) Dysphagia Current Visit: No Status: Chronic Qualifiers: Dysphagia type: unspecified Qualified Code(s): R13.10 - Dysphagia, unspecified (6) History of CVA with residual deficit Current Visit: No Status: Chronic (7) PEG (percutaneous endoscopic gastrostomy) status Current Visit: No Status: Chronic (8) Altered mental status Current Visit: Yes Status: Acute (9) Diabetes Current Visit: No Status: Acute Qualifiers: Diabetes mellitus type: type 2 Diabetes mellitus intermediate frame tender insulin use: without intermediate frame tender use Diabetes mellitus complication status: with circulatory complication Diabetes mellitus complication detail: with peripheral angiopathy without gangrene Qualified Code(s): E11.51 - Type 2 diabetes mellitus with diabetic peripheral angiopathy without gangrene - Plan Patient wound culture is growing ESBL E. coli and Staph aureus. Antibiotics changed to IV meropenem. Added IV vancomycin today. Patient ulcers evaluated by Dr. Gallegos and noted to be necrotic. He recommend amputation of his right foot. Patient and family are on board with amputation. Surgery scheduled for Friday. Insulin sliding scale for glucose management PEG tube feeding resumed. PEG tube change as outpatient Monitor CBC and BMP.
[2019-07-17] MEDS: ATORVASTATIN 20 MG TAB FT SCH (20:01)
[2019-07-18] MEDS: Meropenem 500 MG in NA CHLORIDE 0.9% 100 ML IV SCH ×3 (00:03→17:10)
[2019-07-18] MEDS: VANCOMYCIN/NS 1 gm 1 GM/250 ML BAG IVPB SCH ×2 (03:19→21:56)
[2019-07-18] MEDS: INSULIN -REGULAR HUMAN 50 UNIT/0.5 ML ML SQ SCH ×4 (07:30→20:02)
[2019-07-18] MEDS: GLUCERNA 1.5 CAL 1,000 ML BOT FT SCH ×4 (09:00→20:07)
[2019-07-18] MEDS: ENOXAPARIN 40 MG/0.4 ML SQ SCH (09:02)
[2019-07-18] MEDS: VALACYCLOVIR 500 MG TAB FT SCH ×2 (09:03→20:07)
[2019-07-18] MEDS: TRAMADOL HCL 50 MG TAB FT PRN ×2 (09:03→15:35)
[2019-07-18] MEDS: CLOPIDOGREL 75 MG TABLET FT SCH (09:03)
[2019-07-18] MEDS: Pantoprazole (granules) 40 MG/BLIST PACKET FT SCH (09:03)
[2019-07-18] MEDS: NA CHLORIDE 0.9% 1,000 ML IV SCH ×2 (09:05→18:37)
--- NOTE | 2019-07-18 11:39 | P.PN ---
Subjective Date of Service: 07/18/19 Chief Complaint: Altered mental status. Subjective: No new changes She had an uneventful night. Physical Examination - Vital Signs Temperature: 98.3 F Blood Pressure: 184/81 Pulse: 91 Respirations: 14 Pulse Ox (%): 98 - Physical Exam General: In no apparent distress, Other (Awake) HEENT: Mucous membr. moist/pink Neck: Supple, JVD not distended Respiratory: Clear to auscultation bilaterally, Normal air movement Cardiovascular: No edema, Regular rate/rhythm, Normal S1 S2 Gastrointestinal: Normal bowel sounds, Soft and benign, Non-distended, No tenderness, Other (PEG tube) Musculoskeletal: Contractures Integumentary: Other (Necrotic right 1st toe amputation stump, multiple gangrenous ulcers on the left foot, nonhealing 2nd toe amputation stump with slough on the left foot) - Studies Microbiology Data (last 24 hrs): 07/13/19 11:04 Blood - Blood Aerobic Blood Culture - Final No growth in 5 days. 07/13/19 11:04 Blood - Blood Anaerobic Blood Culture - Final No growth in 5 days. 07/13/19 10:08 Blood - Blood Gram Stain - Final 07/13/19 10:08 Blood - Blood Anaerobic Blood Culture - Final No growth in 5 days. Assessment And Plan - Current Problems (Diagnosis) (1) Sepsis Current Visit: Yes Status: Acute (2) Acute cystitis without hematuria Current Visit: Yes Status: Acute (3) Chronic ulcer of toes Current Visit: Yes Status: Chronic (4) Amputation of toe Current Visit: No Status: Chronic Qualifiers: Laterality: left Qualified Code(s): S98.132A - Complete traumatic amputation of one left lesser toe, initial encounter (5) Dysphagia Current Visit: No Status: Chronic Qualifiers: Dysphagia type: unspecified Qualified Code(s): R13.10 - Dysphagia, unspecified (6) History of CVA with residual deficit Current Visit: No Status: Chronic (7) PEG (percutaneous endoscopic gastrostomy) status Current Visit: No Status: Chronic (8) Altered mental status Current Visit: Yes Status: Acute (9) Diabetes Current Visit: No Status: Acute Qualifiers: Diabetes mellitus type: type 2 Diabetes mellitus fci insulin use: without intermediate school teacher use Diabetes mellitus complication status: with circulatory complication Diabetes mellitus complication detail: with peripheral angiopathy without gangrene Qualified Code(s): E11.51 - Type 2 diabetes mellitus with diabetic peripheral angiopathy without gangrene - Plan Patient wound culture is growing ESBL E. coli and Staph aureus. Continue IV meropenem and IV vancomycin. Dr. Gallegos is following and planning for right foot amputation tomorrow. Patient and family are on board with amputation. Insulin sliding scale for glucose management Continue PEG tube feeding. NPO after midnight PEG tube change as outpatient Monitor CBC and BMP.
[2019-07-18] MEDS: ATORVASTATIN 20 MG TAB FT SCH (20:07)
--- OUTSIDE RECORDS SUMMARY | 2019-07-18 23:12 | XMS REPORT ---
[...] Status Dosage System Date Date atorvastatin ND 42667348303 20mg Active 1 tablet by mouth at bedtime Pantoprazole ND 77011332796 40 MG Orally Active 1 tablet Sodium Once a day Promethazine HCl ND 23075272536 6.25 MG/5ML NovemberJanuary 23, Active 10 ml as Orally every 6 2018 2019 needed hrs HydrALAZINE HCl ND 57440072156 25 MG Orally Active 1 tablet Three times a with food day Tramadol HCl ND 43324020028 50 MG Orally Active as directed Lisinopril ND 71610918841 10 MG Orally Active 1 tablet Once a day Metformin HCl ND 26850549549 500 MG Orally Active 1 tablet Once a day with a meal Results No Known Results Summary Purpose eClinicalWorks Submission
--- OUTSIDE RECORDS SUMMARY | 2019-07-18 23:12 | XMS REPORT ---
[...] Start Date End Date Status Dosage Lisinopril [facility] 10568908732 40 MG Orally Once Active 1 tablet a day Results No Known Results Summary Purpose eClinicalWorks Submission
--- OUTSIDE RECORDS SUMMARY | 2019-07-18 23:12 | XMS REPORT ---
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 Problem Essential hypertension I10 Active Medications Medication Code Code Instructions Start End Status Dosage System Date Date Lisinopril [facility] 19807604828 10 MG Orally Active 1 tablet Once a day Pantoprazole ND 09752333330 40 MG Orally Active 1 tablet Sodium Once a day Metformin HCl ND 92431675521 500 MG Orally Active 1 tablet Twice a day with a meal Tramadol HCl ND 21831819637 50 MG Orally Active as directed Plavix ND 57751312612 75 MG Orally Active 1 tablet Once a day Atorvastatin ND 42502110544 20 MG Active TAKE 1 Calcium TABLET BY MOUTH AT BEDTIME HydrALAZINE HCl [facility] 39289470519 25 MG Orally Active 1 tablet Twice a day with food Lisinopril [facility] 79511845115 40 MG Orally Active 1 tablet Once a day Acetaminophen [facility] [address]-36 167 MG/5ML February 25Aug Active 5ml Orally every 2018 17, hrs 2019 Results No Known Results Summary Purpose eClinicalWorks Submission
--- OUTSIDE RECORDS SUMMARY | 2019-07-18 23:12 | XMS REPORT ---
[...] Date Date Plavix [facility] 99084370455 75 MG Orally Active 1 tablet Once a day Atorvastatin [facility] 01299813107 20 MG Active TAKE 1 Calcium TABLET BY MOUTH AT BEDTIME Tramadol HCl [facility] 49406737696 50 MG Orally Active as directed HydrALAZINE HCl [facility] 95028290219 25 MG Orally Active 1 tablet Twice a day with food Pantoprazole [facility] 29969383809 40 MG Orally Active 1 tablet Sodium Once a day atorvastatin [facility] 37677372126 20mg oral at Active 1 tablet bedtime Acetaminophen [facility] [address]-62 167 MG/5ML February 25Aug Active 5ml Orally every 2018 17, hrs 2018 Lisinopril [facility] 76148379492 10 MG Orally Active 1 tablet Once a day Metformin HCl [facility] 69981353680 500 MG Orally Active 1 tablet Twice a day with a meal Results No Known Results Summary Purpose eClinicalWorks Submission
--- OUTSIDE RECORDS SUMMARY | 2019-07-18 23:12 | XMS REPORT ---
[...] Status Dosage System Date Date Metformin HCl [facility] 55067162190 500 MG Orally Active 1 tablet Twice a day with a meal atorvastatin [facility] 91877096333 20mg oral at Active 1 tablet bedtime HydrALAZINE HCl [facility] 41786108708 25 MG Orally Active 1 tablet Twice a day with food Plavix [facility] 28966429232 75 MG Orally Swetha Active 1 tablet Once a day 2018 Pantoprazole [facility] 36266107626 40 MG Orally Active 1 tablet Sodium Once a day Results No Known Results Summary Purpose eClinicalWorks Submission
[2019-07-19] MEDS: Meropenem 500 MG in NA CHLORIDE 0.9% 100 ML IV SCH ×3 (00:52→18:08)
[2019-07-19] MEDS: MORPHINE 4 MG/ML SYR IV PRN ×2 (02:39→21:25)
[2019-07-19] MEDS: NA CHLORIDE 0.9% 1,000 ML IV SCH ×3 (04:59→22:52)
[2019-07-19 05:44] LABS: Absolute Lymphocytes (CBC) 1.6 K/uL (0.7-4.9); Basophils % 0.4 % (0-1.3); Hematocrit 26.4 % (36.0-45.0); Lymphocytes % 16.7 % (15.3-44.8); MPV 7.7 fL (7.6-11.3); RBC Red Blood Cell Count 3.12 M/uL (3.86-4.86)
[2019-07-19 06:03] LABS: BUN Blood Urea Nitrogen 16 mg/dL (7-18); Bicarbonate 28 mmol/L (21-32); Glucose Level 110 mg/dL (74-106); Potassium 4.1 mmol/L (3.5-5.1); Sodium Level 142 mmol/L (136-145)
[2019-07-19] MEDS: INSULIN -REGULAR HUMAN 50 UNIT/0.5 ML ML SQ SCH ×4 (07:30→20:33)
[2019-07-19] MEDS: VALACYCLOVIR 500 MG TAB FT SCH ×2 (09:00→20:32)
[2019-07-19] MEDS: ENOXAPARIN 40 MG/0.4 ML SQ SCH (09:00)
[2019-07-19] MEDS: Pantoprazole (granules) 40 MG/BLIST PACKET FT SCH (09:00)
[2019-07-19] MEDS: CLOPIDOGREL 75 MG TABLET FT SCH (09:00)
[2019-07-19] MEDS: GLUCERNA 1.5 CAL 1,000 ML BOT FT SCH ×4 (09:00→20:31)
--- NOTE | 2019-07-19 13:49 | PN ---
Date of Progress Note: 07/19/2019 Subjective: Patient was seen and examined. Chart reviewed and case discussed with RN. Family at the bedside. Treatment plan explained, all questions answered. Patient likely going for surgery today. Medications: List reviewed. Code Status: Full. Physical Examination: Vital Signs: Temperature 98.5, heart rate 89, blood pressure 150/80, respirations 17, O2 96% on room air. General: Awake, alert, and dysphasic, no acute distress. CV: S1, S2. Regular rate and rhythm. Peripheral pulses present. Respiratory: Moving air well bilaterally. No wheezing or stridor. No use of accessory muscles. Gastrointestinal: Abdomen is soft, nontender, nondistended. Positive bowel sounds. PEG tube in place. Extremities: No clubbing, cyanosis, or edema. Skin: Bilateral feet bandaged. Patient has multiple wounds on both feet. Patient also has stage II sacral decubitus ulcer. Neurologic: Patient is aphasic. Moves upper extremities and lower extremities. Laboratory Data: Sodium 142, potassium 4.1, chloride 109, CO2 of 28, BUN 16, creatinine 0.51, glucose 110, calcium 8.3. WBC 9.9, H and H 8.9 and 26.4, platelets 383, neutrophils 74%. Wound cultures growing out ESBL E coli and Enterococcus faecalis. Wounds from the right foot also growing out ESBL E coli and Staph aureus. Wound from the left foot also growing out ESBL E coli and Staph aureus. Urine culture growing out 4+ yeast. Blood cultures, no growth to date, final. Assessment: 59-year-old female with; 1. Sepsis secondary to urinary tract infection, improving. We will continue with IV antibiotics. Patient also has wound cultures positive for extended spectrum beta-lactamase Escherichia coli, Staphylococcus, and Enterococcus. 2. Acute cystitis without hematuria secondary to yeast growing in cultures. We will add Diflucan. 3. Diabetic ulcer of bilateral toes with acute infection with extended spectrum beta-lactamase Escherichia coli, Staphylococcus. Patient being seen by Dr. Gallegos. We will continue with IV antibiotics. Patient is scheduled for procedure today. 4. Dysphasia. 5. History of cerebrovascular accident with residual deficit. 6. Status post PEG tube placement. 7. Acute metabolic encephalopathy, likely due to sepsis, resolved. Patient back to baseline. MRI of the brain was negative for acute cerebrovascular accident. 8. Diabetes mellitus type 2 with long-term use of insulin with diabetic foot wounds. 9. Sacral decubitus ulcer present on admission. Unstageable. Infected w enterococcus. Cont IV abx. Wound care, off loading. Plan: Foot amputation for today. Patient will likely need long-term IV antibiotics with meropenem. We will discuss with Case Management and Social Work regarding set up of IV antibiotics. Consider ID consultation. CRYSTAL Voice ID: [id number] Report ID: [id number] MTDD
[2019-07-19] MEDS ORDERED: NA CHLORIDE 0.9% 1,000 ML ONE (14:10)
[2019-07-19] MEDS ORDERED: FENTANYL CITR 100 MCG/2 ML ONE (14:12)
[2019-07-19] MEDS ORDERED: LIDOCAINE 2% MPF 5 ML VIAL ONE (14:13)
[2019-07-19] MEDS ORDERED: PROPOFOL 200 MG/20 ML VIAL IV ONE (14:13)
[2019-07-19] MEDS ORDERED: MIDAZOLAM HCL 2 MG/2 ML INJ ONE (14:13)
[2019-07-19] MEDS ORDERED: BUPIVACAINE 0.75% (PF) 2 ML SP ONE (14:40)
[2019-07-19] MEDS ORDERED: LIDOCAINE 1% MPF 5 ML VIAL ONE (14:41)
[2019-07-19] MEDS ORDERED: BUPIVACAINE 0.75% MPF 10 ML VIAL ONE (14:42)
[2019-07-19] MEDS ORDERED: NS 0.9% VIAL 10 ML ONE (15:22)
--- NOTE | 2019-07-19 15:51 | P.BOP ---
Preoperative diagnosis: right foot gangrene. left foot multiple necrotic ulcers Postoperative diagnosis: same Primary procedure: 1. Right below knee amputation Secondary procedure: 2. Left foot debridement necrotic ulcers 7x6 cm Branner Machine Tender: Filomena Ang (Vishnu) Estimated blood loss: <50cc Specimen: r foot Findings: see dictation Anesthesia: Spinal Complications: None Drain(s): ARY drain Transferred to: Recovery Room Condition: Good
[2019-07-19] MEDS: VANCOMYCIN/NS 1 gm 1 GM/250 ML BAG IVPB SCH (19:39)
[2019-07-19] MEDS: ATORVASTATIN 20 MG TAB FT SCH (20:31)
[2019-07-19] MEDS: TRAMADOL HCL 50 MG TAB FT PRN (20:32)
[2019-07-19] MEDS ORDERED: MORPHINE 2 MG/ML SYR IV ONE (23:48)
[2019-07-20] MEDS: Meropenem 500 MG in NA CHLORIDE 0.9% 100 ML IV SCH ×3 (01:03→16:48)
[2019-07-20] MEDS: MORPHINE 4 MG/ML SYR IV PRN ×4 (01:20→21:00)
[2019-07-20] MEDS: NA CHLORIDE 0.9% 1,000 ML IV SCH ×2 (02:46→12:28)
[2019-07-20 05:09] LABS: Absolute Lymphocytes (CBC) 1.2 K/uL (0.7-4.9); Basophils % 0.4 % (0-1.3); Hematocrit 25.1 % (36.0-45.0); Lymphocytes % 10.8 % (15.3-44.8); RBC Red Blood Cell Count 2.96 M/uL (3.86-4.86)
[2019-07-20 05:26] LABS: ALT/SGPT 181 U/L (12-78); AST/SGOT 248 U/L (15-37); Alkaline Phosphatase 480 U/L (45-117); BUN Blood Urea Nitrogen 14 mg/dL (7-18); Bicarbonate 27 mmol/L (21-32); Bilirubin Total 0.3 mg/dL (0.2-1.0); Glucose Level 124 mg/dL (74-106); Magnesium 1.8 mg/dL (1.8-2.4); Phosphorus 2.5 mg/dL (2.5-4.9); Protein, Total 6.3 g/dL (6.4-8.2); Sodium Level 139 mmol/L (136-145)
[2019-07-20] MEDS: INSULIN -REGULAR HUMAN 50 UNIT/0.5 ML ML SQ SCH ×4 (07:30→20:59)
[2019-07-20] MEDS: CLOPIDOGREL 75 MG TABLET FT SCH (08:13)
[2019-07-20] MEDS: GLUCERNA 1.5 CAL 1,000 ML BOT FT SCH ×4 (08:14→20:58)
[2019-07-20] MEDS: FLUCONAZOLE 100 MG TAB PO SCH (08:14)
[2019-07-20] MEDS: ENOXAPARIN 40 MG/0.4 ML SQ SCH (08:14)
[2019-07-20] MEDS: VALACYCLOVIR 500 MG TAB FT SCH ×2 (08:15→20:59)
--- NOTE | 2019-07-20 08:20 | CON ---
History Of Present Illness: Patient is a 59-year-old female with significant history of stroke, diab etes mellitus, and multiple wounds to the lower extremity and sacral unstageable wound. The patient also has urinary tract infection secondary to ESBL and osteomyelitis of right foot, supposed to go fo r amputation of right BKA later today. [facility] lives at senior living. Denies any other complaints at th is time. Most of the history was obtained through medical records and the staff and family member at the bedside. Past Medical History: Hyperlipidemia, neuropathy, diabetes mellitus, history of dysphagia, now with PEG tube placement, hysterectomy, stroke, hypertension. Social History: Nonsmoker, nondrinker. halfway resident. Family History: Noncontributory. Medication: Tylenol, Lipitor, Plavix, fentanyl, MediHoney, Lovenox, Glucerna, Diflucan, insulin, riky openem, vancomycin, Valtrex. Allergies: NO KNOWN DRUG ALLERGIES. Review of Systems: Unable to obtain. Physical Examination: General: This is a 59-year-old female, lying in bed, not in any acute cardiopulmonary distress. Vital Signs: Temperature 98, pulse 89, respirations 17, blood pressure 150/80. HEENT: Unremarkable. Neck: Supple. Lungs: Basal crackles. Heart: S1, S2. Regular. Abdomen: Soft, nontender. Bowel sounds present. Extremities: Muscle wasting noted. Laboratory Data: WBC 9.9, down from 13.8; hemoglobin 8.9; platelets are 383. Chemistry shows sodium 142, potassium 4.1, chloride 109, bicarb 28, BUN 16, creatinine 0.5, glucose 110. Urine shows WBC t oo numerous to count. Cultures are growing ESBL from the wound and Staph aureus, E coli. Urine cult ures are also growing more than you 100,000 yeast. Assessment And Plan: This is a 59-year-old senior living resident coming in with multiple wounds to t he right and left leg and sacral unstageable wound. The patient has significant history of diabetes and diabetic neuropathy with stroke. Cultures are growing Escherichia coli with extended-spectrum be ta-lactamase and Staphylococcus aureus for which patient is getting meropenem and vancomycin. The pa tient also has urine culture positive for yeast for which patient is getting Diflucan. Blood culture s, no growth in 5 days. We will agree with amputation of right leg. For BKA left foot, apply Betadi ne to close wound and Medihoney to the open wound area, sacral area, santyl to be applied and covered with foam. Keep patient offloaded. Nutritional consult. We will follow the patient closely. Thank you Dr. Piña for consult. SULY/RICHI Voice ID: [id number] Report ID: [id number]
[2019-07-20] MEDS: MEDIHONEY 44 ML TOPICAL TUBE TOP SCH (09:00)
[2019-07-20] MEDS: COLLAGENASE 30 GM OINTMENT TOP SCH (09:00)
[2019-07-20] MEDS: Pantoprazole (granules) 40 MG/BLIST PACKET FT SCH (11:42)
[2019-07-20] MEDS: VANCOMYCIN/NS 1 gm 1 GM/250 ML BAG IVPB SCH (11:47)
--- NOTE | 2019-07-20 15:38 | PN ---
Date of Progress Note: 07/20/2019 Subjective: Patient seen and examined. Chart reviewed and case discussed with RN and Dr. Gallegos. Patient did well after BKA yesterday. Currently in the ICU for close monitoring. No acute events o vernight. Medications: List reviewed. Physical Examination: Vital Signs: Temperature 97.2, heart rate 92, blood pressure 154/75, respirations 22, O2 97% on room air. General: Awake and alert. Follows commands. No acute distress. CV: S1, S2. Regular rate and rhythm. Peripheral pulses weak. Respiratory: Moving air well bilaterally. No wheezing or stridor. Gastrointestinal: Abdomen is soft, nontender, nondistended. Positive bowel sounds. PEG tube in carmen ce. Extremities: Patient has lower extremity contracture. Right BKA. Neurologic: Patient has dysphagia. Skin: Patient has wounds on the left foot, diabetic foot ulcers. Laboratory Data: Sodium 139, potassium 4, chloride 107, CO2 of 27, BUN 14, creatinine 0.48, glucose 124, calcium 8.2, phosphorus 2.5, magnesium 1.8. AST 248, ALT 181, alkaline phosphatase 480, albumin 2. WBC 11.1, H and H 8.8 and 25.1, platelets 367, neutrophils 79%. Blood cultures, no growth to da te. Wound from the sacrum growing out ESBL E coli, Enterococcus faecalis. Wound from the right foot and the left foot growing out ESBL E coli and Staph aureus. Assessment: 59-year-old female with; 1.Sepsis secondary to urinary tract infection, improving. Patient also has positive wound cultures from diabetic foot ulcers. 2.Acute cystitis without hematuria secondary to yeast. Continue Diflucan. 3.Diabetic foot ulcers with acute infection secondary to extended spectrum beta-lactamase [place] a coli, Staphylococcus. Status post right below-knee amputation, postoperative day #1. We will cont inue with IV antibiotics. Patient will need long-term IV antibiotics. We will have PICC line placed . May benefit from LTAC. 4.Sacral ulcer, un-stageable, infected with extended spectrum beta-lactamase Escherichia coli and En terococcus. We will continue IV antibiotics for now. Offloading wound care. 5.History of cerebrovascular accident with residual deficit and dysphagia. 6.Dysphagia, status post PEG tube placement. We will continue feeding. 7.Acute metabolic encephalopathy, likely related to sepsis, resolved, back to baseline. 8.Diabetes mellitus type 2 with long-term use of insulin with diabetic foot wounds. We will continu e with sliding scale insulin. Monitor blood glucose levels. Plan: We will step down from ICU. Continue IV antibiotics. Possible LTAC referral versus SNF for l fatou-term IV antibiotics and placement. /RICHI Voice ID: [id number] Report ID: [id number]
[2019-07-20] MEDS: D5 0.45 NS 1,000 ML IV SCH (16:59)
[2019-07-20] MEDS ORDERED: HYDRALAZINE HCL 20 MG/ML VIAL IV PRN (18:36)
[2019-07-20] MEDS: ATORVASTATIN 20 MG TAB FT SCH (20:58)
[2019-07-20] MEDS ORDERED: VANCOMYCIN/NS 1 gm 1 GM/250 ML BAG IVPB SCH ×2 (22:00)
--- NOTE | 2019-07-20 23:49 | OP ---
Date of Procedure: 07/20/2019 Surgeon: Gold Gallegos MD Preoperative Diagnoses: Right foot gangrene and left foot multiple necrotic ulcer. Postoperative Diagnoses: Right foot gangrene and left foot multiple necrotic ulcer. Procedure Performed: 1.Right below-knee amputation. 2.Excision and debridement of necrotic ulcer, left foot 7 x 6 cm. Estimated Blood Loss: Less than 50 mL. Specimen: Right foot. Findings: Patient has gangrene of the right foot. This has to be amputated. On the left foot, the patient has multiple necrotic ulcers. Patient does not want an amputation at this time, but need to be debrided too. Both procedures were done separately to avoid cross contamination. We proceed with the amputation first. Anesthesia: Spinal. Drains: ARY #10. Indications: This is the case of a 59-year-old patient with gangrene of the right foot and necrotic changes on the left foot. Patient agreed with the right below-knee amputation first and debridement of the left foot knowing that if that does not heal, eventually she may require amputation. The bene fits, alternatives, and risks were fully explained to the patient and the family, which include, but not limited to infection, bleeding, damage to adjacent structures, anesthesia complication, nonhealin g wound, flap failure, PR, and even . She also understands this may not relieve any symptoms. She might need more than one surgical intervention. The family understood, consent was signed. Description Of Procedure: Patient was brought to the operating room, placed in supine position. Ane sthesia was done without complication. Bilateral lower extremities were prepped and draped in a ster ile fashion. A time-out was called. We proceed with the right below-knee amputation first. The ant erior skin incision and posterior skin incision were clearly outlined. The anterior skin incision wa s made about 12 cm below the tibial tuberosity and extended medial and lateral toward the edges of th e gastrocnemius muscle. The skin incision was continued distally parallel to the tibia for about 15 cm. The posterior flap was created. The skin and subcutaneous tissue were carefully incised. Fasci a was found, incised. Saphenous veins identified and ligated. The fascia and the muscle were then d ivided with the Bovie cauterizer at the same level of the anterior skin incision. The muscle in the anterior and lateral compartments were carefully divided with Bovie cauterizer, exposing the tibial v essel that was ligated with 0 silk. Interosseous membrane was incised. Tibial periosteum was incise d circumferentially and then periosteal elevator was use. The tibia was transected with a Gigli saw about 2 cm proximal to the tibia. Tibia was transected with a bone cutter. Amputation was then comp leted with a knife. We transected soleus muscle obliquely and the gastrocnemius muscle at the same l evel of the posterior flap. The bony edges were carefully filed. The fascia of the anterior and pos terior muscle flaps were approximated with #1 Vicryl. The skin was approximated with shari. ARY dr dhaliwal was previously placed, secured in place with 3-0 nylon. The flap looks intact. Good capillary r efill. The area was covered with sterile dressings. The patient tolerated the procedure well. Spon ge count and instrument counts were correct. Patient tolerated the procedure well. After that we co ntinued on the left foot. Left foot was already prepped and draped in sterile fashion. The patient has multiple ulcers between metatarsal areas of 1st, 2nd, and 3rd that also have few areas in the seth sum of the foot and also on the plantar surface of the foot. The entire area is about 7 x 6 cm[address] It goes all the way down to deep subcutaneous tissue. That fat is partially necrotic was also removed. The area was packed with wet-to-dry dressing after hemostasis was obtained. Patient tolerated the procedure well. At that moment, patient was sent to the Recovery in stable condition. BERTO/RICHI Voice ID: [id number] Report ID: [id number]
[2019-07-21] MEDS: Meropenem 500 MG in NA CHLORIDE 0.9% 100 ML IV SCH ×3 (00:33→16:50)
[2019-07-21] MEDS: D5 0.45 NS 1,000 ML IV SCH ×3 (03:01→21:07)
[2019-07-21 06:02] LABS: Absolute Lymphocytes (CBC) 1.4 K/uL (0.7-4.9); Basophils % 0.4 % (0-1.3); Hematocrit 24.8 % (36.0-45.0); Lymphocytes % 11.8 % (15.3-44.8); MPV 8.1 fL (7.6-11.3); RBC Red Blood Cell Count 2.94 M/uL (3.86-4.86)
[2019-07-21 06:19] LABS: ALT/SGPT 94 U/L (12-78); AST/SGOT 45 U/L (15-37); Albumin 1.9 g/dL (3.4-5.0); Alkaline Phosphatase 355 U/L (45-117); BUN Blood Urea Nitrogen 9 mg/dL (7-18); Bicarbonate 28 mmol/L (21-32); Bilirubin Total 0.3 mg/dL (0.2-1.0); Glucose Level 148 mg/dL (74-106); Potassium 3.6 mmol/L (3.5-5.1); Protein, Total 6.2 g/dL (6.4-8.2); Sodium Level 138 mmol/L (136-145)
[2019-07-21] MEDS: INSULIN -REGULAR HUMAN 50 UNIT/0.5 ML ML SQ SCH ×4 (07:30→21:20)
[2019-07-21] MEDS: COLLAGENASE 30 GM OINTMENT TOP SCH (09:00)
[2019-07-21] MEDS: MEDIHONEY 44 ML TOPICAL TUBE TOP SCH (09:00)
[2019-07-21] MEDS: CLOPIDOGREL 75 MG TABLET FT SCH ×2 (09:00→16:06)
[2019-07-21] MEDS: GLUCERNA 1.5 CAL 1,000 ML BOT FT SCH ×4 (09:00→21:06)
[2019-07-21] MEDS: FLUCONAZOLE 100 MG TAB PO SCH (09:00)
[2019-07-21] MEDS ORDERED: KCL 20 MEQ/100 mL IVPB 20 MEQ/100 ML BAG IV SCH (09:00)
[2019-07-21] MEDS: Pantoprazole (granules) 40 MG/BLIST PACKET FT SCH (09:00)
[2019-07-21] MEDS: VALACYCLOVIR 500 MG TAB FT SCH ×3 (09:00→20:50)
[2019-07-21] MEDS ORDERED: SODIUM CHLORIDE 0.9% 10ML INJ IV PRN (09:42)
[2019-07-21] MEDS: ENOXAPARIN 40 MG/0.4 ML SQ SCH (09:49)
[2019-07-21] MEDS: FLUCONAZOLE 200mg IVPB 200 MG/100 ML BAG IV SCH (10:33)
[2019-07-21] MEDS: PANTOPRAZOLE 40 MG INJ IVP SCH (10:34)
[2019-07-21] MEDS: MORPHINE 4 MG/ML SYR IV PRN ×2 (11:18→16:50)
--- NOTE | 2019-07-21 13:45 | PN ---
Date of Progress Note: 07/21/2019 Subjective: Patient seen and examined. Chart reviewed and case discussed with RN and Dr. Johnson. Solomon carranza was moved out of the ICU yesterday. Patient's PEG tube seems to be clogged, issue unable to b e resolved with bedside maneuvers, will need endoscopic brush. Dr. Palacio has been consulted. Medications: List reviewed. Physical Examination: Vital Signs: Temperature 98.1, heart rate 97, blood pressure 147/70, respirations 15, O2 94% on room air. General: Awake, alert. Follows commands, aphasic. CV: S1, S2. Regular rate and rhythm. Peripheral pulses present. Respiratory: Moving air well bilaterally. Abdomen: Soft, nontender, nondistended. Positive bowel sounds. PEG tube in place. Extremities: No clubbing, cyanosis, or edema. Musculoskeletal: Right BKA. Wound is bandaged and Clayton wrapped, clean, dry, intact. Neurologic: Patient is aphasic. Laboratory Data: Sodium 138, potassium 3.6, chloride 104, CO2 of 28, BUN 9, creatinine 0.42, glucose 148, calcium 8.2, AST 45, ALT 94, alkaline phosphatase 355, albumin 1.9. WBC 11.5, H and H 8.3 and 24.8, platelets 351, neutrophils 75%. Wound cultures and sacral culture growing out E coli ESBL and Staph aureus and Enterococcus. Assessment: 59-year-old female with; 1.Sepsis secondary to urinary tract infection and foot wound, improving. Sepsis is resolved. 2.Acute cystitis without hematuria secondary to the yeast, on Diflucan. 3.Diabetic foot ulcer with acute infection secondary to extended spectrum beta-lactamase Escherichia coli and Staphylococcus. We will continue with meropenem and vancomycin. Currently, postoperative day #2. Patient unfortunately does not have any LTAC benefits. 4.Sacral ulcer, un-stageable, infected with extended spectrum beta-lactamase Escherichia coli and En terococcus. We will continue with broad-spectrum IV antibiotics. Continue wound care and offloading . 5.History of cerebrovascular accident with residual deficit and dysphagia. 6.Dysphagia, status post PEG tube placement, now with PEG tube malfunction. GI has been consulted. 7.Acute metabolic encephalopathy, likely related to sepsis, resolved. 8.Diabetes mellitus type 2 with long-term use of insulin with diabetic foot wounds. Continue slidin g scale insulin. Monitor Accu-Cheks. 9.Deep venous thrombosis prophylaxis addressed. Plan: Set up IV antibiotics, PICC line, and discharge to halfway with long-term IV antibiotics for minimum of 2 to 4 weeks. CRYSTAL Voice ID: [id number] Report ID: [id number]
[2019-07-21] MEDS: ATORVASTATIN 20 MG TAB FT SCH (20:49)
[2019-07-22] MEDS: Meropenem 500 MG in NA CHLORIDE 0.9% 100 ML IV SCH ×3 (00:03→16:41)
[2019-07-22] MEDS: MORPHINE 4 MG/ML SYR IV PRN ×2 (03:10→18:36)
[2019-07-22 05:51] LABS: Absolute Lymphocytes (CBC) 1.4 K/uL (0.7-4.9); Basophils % 0.5 % (0-1.3); Hematocrit 22.1 % (36.0-45.0); Lymphocytes % 14.9 % (15.3-44.8); MPV 7.6 fL (7.6-11.3); RBC Red Blood Cell Count 2.61 M/uL (3.86-4.86)
[2019-07-22 06:09] LABS: ALT/SGPT 62 U/L (12-78); AST/SGOT 22 U/L (15-37); Albumin 1.8 g/dL (3.4-5.0); Alkaline Phosphatase 258 U/L (45-117); BUN Blood Urea Nitrogen 13 mg/dL (7-18); Bicarbonate 30 mmol/L (21-32); Bilirubin Total 0.4 mg/dL (0.2-1.0); Glucose Level 160 mg/dL (74-106); Magnesium 1.8 mg/dL (1.8-2.4); Potassium 3.7 mmol/L (3.5-5.1); Protein, Total 5.9 g/dL (6.4-8.2); Sodium Level 139 mmol/L (136-145)
[2019-07-22] MEDS: INSULIN -REGULAR HUMAN 50 UNIT/0.5 ML ML SQ SCH ×4 (07:30→20:02)
[2019-07-22] MEDS ORDERED: MAGNESIUM SULFATE 1 gm IVPB 1 GM/100 ML BAG IV ONE (08:00)
[2019-07-22] MEDS ORDERED: POTASSIUM 25 MEQ EFFERV TAB PO ONE (09:00)
[2019-07-22] MEDS: ENOXAPARIN 40 MG/0.4 ML SQ SCH (09:38)
[2019-07-22] MEDS: CLOPIDOGREL 75 MG TABLET FT SCH (09:38)
[2019-07-22] MEDS: PANTOPRAZOLE 40 MG INJ IVP SCH (09:38)
[2019-07-22] MEDS: FLUCONAZOLE 200mg IVPB 200 MG/100 ML BAG IV SCH (09:38)
[2019-07-22] MEDS: D5 0.45 NS 1,000 ML IV SCH (09:39)
--- NOTE | 2019-07-22 09:42 | PN ---
Subjective: Patient lying in bed. No new acute event. Chart reviewed. Objective: Vital Signs: Temperature 98, pulse 97, respirations 19, blood pressure 147/70. Lungs: Clear to auscultation. Heart: S1 and S2 regular. Abdomen: Soft, nontender. Bowel sounds present. Extremities: Right BKA wound noted. Left foot wound noted. Sacral unstageable wound noted. Laboratory Data: WBC 11.5, hemoglobin 8.3, platelets are 351. Chemistry shows sodium 138, potassium 3.6, chloride 104, bicarb 28, BUN 10, creatinine 0.4, glucose 148. Current Medications: Fluconazole for UTI, meropenem and vancomycin for ESBL E coli and Enterococcus faecalis and Staphylococcus aureus. Assessment And Plan: Sacral wound with extended-spectrum beta-lactamase Escherichia coli and Enteroc occus faecalis. Continue meropenem and vancomycin. Right foot wound, status post below-knee amputat ion, wound healing well. Left foot wound, Escherichia coli extended-spectrum beta-lactamase and Stap hylococcus aureus. Continue antibiotic and supportive care. We will follow the patient closely. To rolan course of 6 weeks of antibiotic. NF/MODL Voice ID: [id number] Report ID: [id number]
[2019-07-22] MEDS: VANCOMYCIN/NS 1 gm 1 GM/250 ML BAG IVPB SCH (09:43)
[2019-07-22] MEDS: MEDIHONEY 44 ML TOPICAL TUBE TOP SCH (09:44)
[2019-07-22] MEDS: COLLAGENASE 30 GM OINTMENT TOP SCH (09:45)
[2019-07-22] MEDS: VALACYCLOVIR 500 MG TAB FT SCH ×2 (10:56→20:03)
[2019-07-22] MEDS: GLUCERNA 1.5 CAL 1,000 ML BOT FT SCH ×4 (10:57→20:02)
--- NOTE | 2019-07-22 12:29 | RAD REPORT ---
EXAM DESCRIPTION: RAD - Chest Single View - 07/22/2019 2:58 am CLINICAL HISTORY: PICC Placement COMPARISON: 04/07/2019 TECHNIQUE: AP Chest. FINDINGS: Heart is normal in size. Mild aortic atherosclerosis. Normal pulmonary vascularity when ac counting for low lung volumes. Lungs are clear. Pleural spaces are clear. No pneumothorax. Left subclavian PICC line is in the inferior right atrial region. Unremarkable soft tissues and bones. IMPRESSION: 1. Left subclavian PICC line is in the inferior right atrial region. This could be withd rawn approximately 3 cm. Electronically signed by: Alvina Judd DO 07/22/2019 3:05 AM [employer] Due to temporary technical issues with the PACS/Fluency reporting system, reports are being signed by the in house radiologist as a courtesy to ensure prompt reporting. The interpreting radiologist is f ully responsible for the content of the report.
[2019-07-22 18:34] LABS: Hematocrit 23.1 % (36.0-45.0)
[2019-07-22] MEDS: ATORVASTATIN 20 MG TAB FT SCH (20:03)
--- NOTE | 2019-07-22 20:25 | PN ---
Date of Progress Note: 07/22/2019 Subjective: Patient seen and examined. Chart reviewed and case discussed with RN and Dr. Gallegos. Patient overall doing well. Medications: List reviewed. Physical Examination: Vital Signs: Temperature 97.3, heart rate 87, blood pressure 132/71, respirations 17, O2 99% on room air. General: Awake, alert, not in any acute distress. CV: S1, S2. Regular rate and rhythm. Peripheral pulses present. Respiratory: Moving air well bilaterally. Gastrointestinal: Abdomen is soft, nontender, nondistended. Positive bowel sounds. PEG tube in carmen ce. Extremities: No clubbing, cyanosis. Patient has no edema on the left lower extremity Musculoskeleta l: Right BKA. NEURO: Patient is aphasic, hemiplegia. Laboratory Data: Sodium 139, potassium 3.7, chloride 104, CO2 30, BUN 13, creatinine 0.48, glucose 1 60, calcium 8.1, albumin 1.8. WBC 9.7, H and H 7.6 and 22.1, platelets 343. Wound cultures growing out E coli, ESBL, Staph aureus, and Enterococcus. Chest x-ray shows left subclavian PICC line in inferior right atrial region, could be withdrawn by 3 cm. Assessment And Plan: 59-year-old female with: 1.Sepsis secondary to urinary tract infection and foot wound. Sepsis resolved. 2.Acute cystitis without hematuria secondary to yeast, on Diflucan. 3.Diabetic foot ulcer with acute infection secondary to extended spectrum beta-lactamase, Escherichi a coli, and Staphylococcus aureus. We will continue meropenem and vancomycin, status post below-knee amputation, postop day #3. 4.Sacral decubitus ulcer, unstageable, infected with extended spectrum beta-lactamase, Escherichia c alejandra, and Enterococcus. Continue broad-spectrum IV antibiotics, offloading, and wound care. 5.History of cerebrovascular accident with dysphagia. 6.Dysphagia, status post PEG tube placement. Appreciate Dr. Palacio input. PEG tube was kinked, n ow functioning, resume tube feeds. 7.Acute metabolic encephalopathy related to above, resolved, back to baseline. 8.Diabetes mellitus type 2 with long-term use of insulin with diabetic foot wounds. Continue slidin g scale insulin and monitor blood glucose levels. 9.Deep venous thrombosis prophylaxis addressed. Plan: Patient is pending [facility] acceptance with minimum of 4 weeks to 6 weeks of IV a ntibiotics per Infectious Disease recommendations. /RICHI Voice ID: [id number] Report ID: [id number]
[2019-07-23 05:10] LABS: Absolute Lymphocytes (CBC) 1.5 K/uL (0.7-4.9); Basophils % 0.4 % (0-1.3); Hematocrit 22.7 % (36.0-45.0); Lymphocytes % 17.3 % (15.3-44.8); MPV 7.7 fL (7.6-11.3); RBC Red Blood Cell Count 2.67 M/uL (3.86-4.86)
[2019-07-23 05:24] LABS: BUN Blood Urea Nitrogen 11 mg/dL (7-18); Bicarbonate 33 mmol/L (21-32); Glucose Level 114 mg/dL (74-106); Magnesium 2.2 mg/dL (1.8-2.4); Potassium 4.1 mmol/L (3.5-5.1); Sodium Level 139 mmol/L (136-145)
[2019-07-23] MEDS: Pantoprazole (granules) 40 MG/BLIST PACKET FT SCH (05:43)
[2019-07-23] MEDS ORDERED: PANTOPRAZOLE 40MG TABLET PO SCH (06:30)
[2019-07-23] MEDS: INSULIN -REGULAR HUMAN 50 UNIT/0.5 ML ML SQ SCH ×4 (07:30→21:00)
[2019-07-23] MEDS: GLUCERNA 1.5 CAL 1,000 ML BOT FT SCH ×4 (09:52→21:30)
[2019-07-23] MEDS: Meropenem 500 MG in NA CHLORIDE 0.9% 100 ML IV SCH ×4 (09:52→16:08)
[2019-07-23] MEDS: ENOXAPARIN 40 MG/0.4 ML SQ SCH (09:53)
[2019-07-23] MEDS: FLUCONAZOLE 100 MG TAB PO SCH (09:53)
[2019-07-23] MEDS: CLOPIDOGREL 75 MG TABLET FT SCH (09:53)
[2019-07-23] MEDS: COLLAGENASE 30 GM OINTMENT TOP SCH (09:54)
[2019-07-23] MEDS: VALACYCLOVIR 500 MG TAB FT SCH ×2 (09:54→21:29)
[2019-07-23] MEDS: MEDIHONEY 44 ML TOPICAL TUBE TOP SCH (09:54)
--- NOTE | 2019-07-23 18:08 | PN ---
Date of Progress Note: 07/23/2019 Subjective: Patient seen and examined. Chart reviewed and case discussed with RN. No family at the bedside. No acute events overnight. Medications: List reviewed. Physical Examination: Vital Signs: Temperature 97.6, heart rate 89, blood pressure 139/64, respirations 18, O2 98% on room air. General: Awake and alert, not in any acute distress. CV: S1, S2. Regular rate and rhythm. Respiratory: Moving air well bilaterally. No wheezing. Gastrointestinal: Abdomen is soft, nontender, nondistended. Positive bowel sounds. Extremities: No clubbing, cyanosis, or edema. Neuro: Patient is aphasic. Laboratory Data: Sodium 139, potassium 4.1, chloride 103, CO2 of 33, BUN 11, creatinine 0.43, glucos e 114, calcium 8.3, magnesium 2.2. WBC 8.8, H and H 7.7 and 22.7, platelets 398, neutrophils 71%. W ound cultures growing out ESBL E coli, Enterococcus, and Staph aureus. Assessment: A 59-year-old female with. 1.Sepsis secondary to urinary tract infection and foot wound, improved. 2.Acute cystitis without hematuria secondary to yeast, on Diflucan. 3.Diabetic foot ulcer with acute infection secondary to ESBL E coli and Staph aureus. Patient is on meropenem and vancomycin, now status post BKA postoperative day #4. Ulcers on bilateral feet. It w as also on the left foot. 4.Sacral decubitus ulcer, unstageable, infected with ESBL E coli and Enterococcus. We will continue with meropenem and vancomycin. Continue offloading. We will continue with wound care. 5.History of cerebrovascular accident with dysphagia and aphasia. 6.Dysphagia, status post percutaneous endoscopic gastrostomy tube placement. Tolerating feeds well. PEG tube functioned properly. 7.Acute metabolic encephalopathy secondary to urinary tract infection and sepsis, resolved. 8.Diabetes mellitus type 2 with long-term use of insulin with diabetic foot wounds. We will continu e sliding scale insulin and monitor blood glucose levels. 9.Deep venous thrombosis prophylaxis addressed. Plan: No isolation beds at [facility]. Plan is a different SNF versus home with home health. Patient will need infusion therapy for 6 weeks of meropenem and vancomycin along with wound care. /RICHI Voice ID: [id number] Report ID: [id number]
[2019-07-23] MEDS: VANCOMYCIN/NS 1 gm 1 GM/250 ML BAG IVPB SCH (21:29)
[2019-07-23] MEDS: ATORVASTATIN 20 MG TAB FT SCH (21:29)
[2019-07-23] MEDS: MORPHINE 4 MG/ML SYR IV PRN (22:22)
[2019-07-24] MEDS: Meropenem 500 MG in NA CHLORIDE 0.9% 100 ML IV SCH ×3 (01:33→17:19)
[2019-07-24] MEDS: Pantoprazole (granules) 40 MG/BLIST PACKET FT SCH (07:22)
[2019-07-24] MEDS: INSULIN -REGULAR HUMAN 50 UNIT/0.5 ML ML SQ SCH ×4 (07:30→21:16)
[2019-07-24] MEDS: CLOPIDOGREL 75 MG TABLET FT SCH (09:24)
[2019-07-24] MEDS: ENOXAPARIN 40 MG/0.4 ML SQ SCH (09:24)
[2019-07-24] MEDS: VALACYCLOVIR 500 MG TAB FT SCH ×2 (09:24→21:15)
[2019-07-24] MEDS: FLUCONAZOLE 100 MG TAB PO SCH (09:24)
[2019-07-24] MEDS: GLUCERNA 1.5 CAL 1,000 ML BOT FT SCH ×4 (09:25→21:17)
[2019-07-24] MEDS: COLLAGENASE 30 GM OINTMENT TOP SCH (09:27)
[2019-07-24] MEDS: MEDIHONEY 44 ML TOPICAL TUBE TOP SCH (09:28)
[2019-07-24 10:16] LABS: Absolute Lymphocytes (CBC) 1.3 K/uL (0.7-4.9); Basophils % 0.5 % (0-1.3); Hematocrit 23.6 % (36.0-45.0); Lymphocytes % 17.3 % (15.3-44.8); MPV 7.5 fL (7.6-11.3); RBC Red Blood Cell Count 2.77 M/uL (3.86-4.86)
[2019-07-24] MEDS: MORPHINE 4 MG/ML SYR IV PRN ×2 (13:57→22:56)
--- NOTE | 2019-07-24 15:29 | PN ---
Date of Progress Note: 07/24/2019 Subjective: Patient is seen and examined. Chart reviewed and case discussed with RN. No acute even ts overnight. Medications reviewed. Physical Examination: Vital Signs: Temperature 97.6, heart rate 89, blood pressure 134/63, respirations 18, O2 93% on room air. General: Awake, alert, does not appear to be any acute distress. CV: S1, S2. Regular rate and rhythm. Peripheral pulses present. Respiratory: No wheezing or stridor. Moving air well bilaterally. Gastrointestinal: Abdomen is sof t, nontender, nondistended. Positive bowel sounds. PEG tube in place. Extremities: No clubbing, cyanosis. Musculoskeletal: Right BKA. Skin: Right lower extremity stump bandaged, Clayton wrapped. No drainage. Neuro: Patient is aphasic. Laboratory Data: WBCs 7.6, H and H 7.9 and 23.6, platelets 424. Sodium levels pending. Wound cultu res positive for ESBL E coli, Staph aureus and Enterococcus faecalis. Assessment And Plan: A 59-year-old female with: 1.Sepsis secondary to urinary tract infection and diabetic foot wounds. 2.Acute cystitis without hematuria secondary to yeast, on oral Diflucan. 3.Diabetic foot ulcer with acute infections secondary to extended-spectrum beta-lactamases Escherich ia coli and Staph aureus. Continue with broad-spectrum IV antibiotics. Patient is status post below knee amputation, postop day #4. 4.Sacral decubitus ulcer, unstageable, infected with extended-spectrum beta-lactamases Escherichia c alejandra and Enterococcus, on IV antibiotics. Continue wound care. Continue to turn patient every 2 hour s and offloading. 5.History of cerebrovascular accident with dysphagia and aphasia, stable. 6.Dysphagia, status post PEG tube, tolerating feeds. 7.Acute metabolic encephalopathy secondary to sepsis, resolved. 8.Diabetes mellitus type 2 with long-term use of insulin with diabetic foot wounds. We will continu e sliding scale insulin and monitor blood glucose levels. 9.Deep venous thrombosis prophylaxis, addressed with Lovenox. Plan, [facility] to [facility] facility once accepted. SA/MODL Voice ID: [id number] Report ID: [id number]
[2019-07-24] MEDS: ATORVASTATIN 20 MG TAB FT SCH (21:16)
[2019-07-25] MEDS: Meropenem 500 MG in NA CHLORIDE 0.9% 100 ML IV SCH ×3 (00:26→16:31)
[2019-07-25] MEDS: Pantoprazole (granules) 40 MG/BLIST PACKET FT SCH (06:24)
[2019-07-25] MEDS: INSULIN -REGULAR HUMAN 50 UNIT/0.5 ML ML SQ SCH ×4 (07:30→21:00)
[2019-07-25] MEDS: FLUCONAZOLE 100 MG TAB PO SCH (10:40)
[2019-07-25] MEDS: VALACYCLOVIR 500 MG TAB FT SCH ×2 (10:41→21:39)
[2019-07-25] MEDS: ENOXAPARIN 40 MG/0.4 ML SQ SCH (10:41)
[2019-07-25] MEDS: CLOPIDOGREL 75 MG TABLET FT SCH (10:41)
[2019-07-25] MEDS: VANCOMYCIN/NS 1 gm 1 GM/250 ML BAG IVPB SCH (10:42)
[2019-07-25] MEDS: GLUCERNA 1.5 CAL 1,000 ML BOT FT SCH ×4 (10:43→21:39)
[2019-07-25] MEDS: COLLAGENASE 30 GM OINTMENT TOP SCH (10:45)
[2019-07-25] MEDS: MEDIHONEY 44 ML TOPICAL TUBE TOP SCH (10:45)
[2019-07-25] MEDS: MORPHINE 4 MG/ML SYR IV PRN ×2 (11:09→17:13)
--- NOTE | 2019-07-25 15:12 | PN ---
Date of Progress Note: 07/25/2019 Subjective: Patient is seen and examined, chart was reviewed, and case was discussed with RN. No ac tahira events overnight. Medication List: Reviewed. Physical Examination: Vital Signs: Temperature 97.8, heart rate 82, blood pressure 140/63, respirations 18, O2 98% on room air. General: Awake, alert, not in any acute distress. CV: S1, S2. Peripheral pulses present. Regular rate and rhythm. Respiratory: Moving air well bilaterally. No wheezing or stridor. Gastrointestinal: Abdomen is sof t, nontender, nondistended. Positive bowel sounds. PEG tube in place. Extremities: No clubbing, cyanosis, edema. Neuro: Patient is aphasic. Skin: Patient has right BKA and has diabetic foot wounds on the left foot with some drainage. Musculoskeletal: Right BKA. Laboratory Data: Blood glucose level is 98. Wound culture is growing out ESBL E coli, staphylococcu s, and enterococcus. Assessment: A 59-year-old female with: 1.Sepsis secondary to urinary tract infection and diabetic foot wounds, improved, resolving. 2.Acute cystitis without hematuria secondary to yeast. Continue Diflucan. 3.Diabetic foot ulcer with acute infection secondary to ESBL Escherichia coli and Staphylococcus aur eus, now right BKA. Postoperative day #5, however, still has lesions on the left foot. Continue wit h broad-spectrum IV antibiotics for a total of 6 weeks. 4.Sacral decubitus ulcer, unstageable, present on admission. Infected with ESBL E coli and enteroco ccus. Continue IV antibiotic treatment, offloading, wound care. Patient has DuoDerm in place. Appr eciate ID input. 5.History of cerebrovascular accident with dysphagia and aphasia, stable. 6.Dysphagia, status post PEG tube. Continue tube feeds and water flushes. 7.Acute metabolic encephalopathy secondary to sepsis, resolved. 8.Diabetes mellitus type 2 with long-term use of insulin with diabetic foot wounds. Continue slidin g scale insulin and monitor Accu-Cheks. 9.Deep venous thrombosis prophylaxis with Lovenox. Plan: Discharge to [facility] facility once accepted for wound care and long-term IV antibiotic s for 6 weeks. SA/MODL Voice ID: [id number] Report ID: [id number]
[2019-07-25 15:31] VITALS: O2SAT 98
[2019-07-25] MEDS: ATORVASTATIN 20 MG TAB FT SCH (21:39)
[2019-07-26] MEDS: Meropenem 500 MG in NA CHLORIDE 0.9% 100 ML IV SCH ×2 (01:12→08:38)
[2019-07-26 05:06] LABS: Absolute Lymphocytes (CBC) 1.7 K/uL (0.7-4.9); Basophils % 0.8 % (0-1.3); Hematocrit 24.2 % (36.0-45.0); Lymphocytes % 21.6 % (15.3-44.8); MPV 7.3 fL (7.6-11.3); RBC Red Blood Cell Count 2.79 M/uL (3.86-4.86)
[2019-07-26 05:28] LABS: ALT/SGPT 55 U/L (12-78); AST/SGOT 51 U/L (15-37); Alkaline Phosphatase 316 U/L (45-117); BUN Blood Urea Nitrogen 24 mg/dL (7-18); Bicarbonate 33 mmol/L (21-32); Bilirubin Total 0.2 mg/dL (0.2-1.0); Glucose Level 143 mg/dL (74-106); Potassium 4.6 mmol/L (3.5-5.1); Protein, Total 6.8 g/dL (6.4-8.2); Sodium Level 139 mmol/L (136-145)
[2019-07-26] MEDS: Pantoprazole (granules) 40 MG/BLIST PACKET FT SCH (05:57)
[2019-07-26] MEDS: INSULIN -REGULAR HUMAN 50 UNIT/0.5 ML ML SQ SCH ×2 (07:30→12:41)
[2019-07-26] MEDS: VALACYCLOVIR 500 MG TAB FT SCH (08:39)
[2019-07-26] MEDS: ENOXAPARIN 40 MG/0.4 ML SQ SCH (08:39)
[2019-07-26] MEDS: CLOPIDOGREL 75 MG TABLET FT SCH (08:39)
[2019-07-26] MEDS: FLUCONAZOLE 100 MG TAB PO SCH (08:39)
[2019-07-26] MEDS: MEDIHONEY 44 ML TOPICAL TUBE TOP SCH (08:42)
[2019-07-26] MEDS: COLLAGENASE 30 GM OINTMENT TOP SCH (08:43)
[2019-07-26] MEDS: GLUCERNA 1.5 CAL 1,000 ML BOT FT SCH ×2 (08:44→12:41)
[2019-07-26 08:46] VITALS: TEMP 97.1
[2019-07-26 13:07] VITALS: BP 138/63
--- NOTE | 2019-07-26 20:38 | PN ---
Date of Progress Note: 07/26/2019 Subjective: Status post below-knee amputation. Patient's amputation doing great. No shortness of b reath. No chest pain. Objective: Abdomen: Soft and depressible. Extremity: Amputation site is 100%. Skin: Intact. [place] are intact. No infection. No necrosis. No cellulitis. ARY drain just minim al drainage, was removed today intact. We replaced the dressings. Plan: Continue dressing changes. Remove the shari probably in about 10-14 days. Followup at the office when discharged. BERTO/RICHI Voice ID: [id number] Report ID: [id number]
--- NOTE | 2019-07-27 08:30 | PN ---
Subjective: Patient lying in bed. No new acute events. Chart reviewed. Objective: Vital Signs: Temperature 97, pulse 92, respirations 17, blood pressure 138/63. Lungs: Clear to auscultation. Heart: S1, S2 regular. Abdomen: Soft, nontender. Bowel sounds present. Extremities: No edema. BKA wound noted. Laboratory Data: WBC 7.7, hemoglobin 8, platelets are 511. Sodium 139, potassium 4.6, chloride 103, bicarb 33, BUN 24, creatinine 0.6. Medications: Patient is currently on meropenem, Valtrex, and vancomycin. Assessment And Plan: Status post below-knee amputation. Patient is doing well, going to be transfer red to [facility] for wound management and further care. We will follow the patient yaneth quinn. NF/MODL Voice ID: [id number] Report ID: [id number]
--- NOTE | 2019-07-27 15:24 | P.DS ---
Admission Date: 07/13/19 Discharge Date: 07/27/19 Disposition: TRANSFER TO SNF - MEDICAL Discharge Condition: FAIR Reason for Admission: Altered mental status. Consultations: General Surgery Procedures: Right BKA Brief History of Present Illness: SEE hPI Hospital Course: Discharge diagnosis 1. Sepsis 2. Urinary tract infection secondary to E. stool with hematuria 3. Diabetic foot ulcer secondary to ESBL - status post right BKA 4. Sacral decubitus ulcer also infected with ESBL 5. history of CVA and dysphagia does have a PEG tube in place 6. acute metabolic encephalopathy secondary to sepsis 7. Type 2 diabetes with long-term use of insulin with diabetic foot wounds Overall during the hospital stay patient remained stable Patient was initially admitted to the hospital for altered mental status along with possible sepsis. Patient had lab work and imaging done in the ER was found to have sepsis along with diabetic foot ulcer and thus was admitted to the hospital for further care. General surgery was consulted. Patient had right-sided BKA with general surgery. On admission was also started on IV antibiotics and fluids. Patient had wound culture and blood culture done here in the hospital. Wound cultures were consistent with diabetic right side positive for multidrug resistant E. coli and Staph aureus, sacral decubitus ulcer was on stage of 0 and was infected with also multidrug resistant E. coli along with enterococcus. Infectious disease was consulted at that time recommended the patient be continued on IV vancomycin for total of 6 weeks given the extensive infection. In patient was referred over to a care home facility as patient had med EKG was difficult to establish care with a care home facility. Finally patient was accepted to [facility] and was transferred there for IV antibiotics for total of 6 weeks. Patient will be continued on IV vancomycin at that time. While here in the hospital patient was also found to have acute cystitis most likely secondary to yeast infection was continued on Diflucan. After discharge patient was asked to follow up with general surgery and primary care provider about 1-2 weeks post discharge. Patient demonstrate understanding and thus was discharged home under stable condition. 1. Vital Signs/Physical Exam: Temp Pulse Resp BP Pulse Ox 97.1 F 92 H 17 138/63 98 07/26/19 12:00 07/26/19 12:00 07/26/19 12:00 07/26/19 12:00 07/26/19 12:00 General: Alert, In no apparent distress HEENT: Atraumatic, PERRLA, EOMI Neck: Supple, JVD not distended Respiratory: Clear to auscultation bilaterally, Normal air movement Cardiovascular: Regular rate/rhythm, Normal S1 S2 Gastrointestinal: Normal bowel sounds, No tenderness Musculoskeletal: Other (Right BKA) Integumentary: No rashes, Diabetic ulcer, Pressure ulcer, Venous stasis ulcer Neurological: Normal speech, Normal tone, Normal affect Lymphatics: No axilla or inguinal lymphadenopathy Laboratory Data at Discharge: WBC 7.7 K/uL (4.3-10.9) 07/26/19 04:35 Hgb 8.0 g/dL (12.0-15.0) L 07/26/19 04:35 Hct 24.2 % (36.0-45.0) L 07/26/19 04:35 Plt Count 511 K/uL (152-406) H D 07/26/19 04:35 PT 13.4 SECONDS (9.5-12.5) H 07/13/19 10:03 INR 1.14 07/13/19 10:03 APTT 29.8 SECONDS (24.3-36.9) 07/13/19 10:03 Sodium 139 mmol/L (136-145) 07/26/19 04:35 Potassium 4.6 mmol/L (3.5-5.1) 07/26/19 04:35 BUN 24 mg/dL (7-18) H 07/26/19 04:35 Creatinine 0.60 mg/dL (0.55-1.3) 07/26/19 04:35 Glucose 143 mg/dL (74-106) H 07/26/19 04:35 Phosphorus 2.5 mg/dL (2.5-4.9) 07/20/19 04:43 Magnesium 2.2 mg/dL (1.8-2.4) 07/23/19 04:30 Total Bilirubin 0.2 mg/dL (0.2-1.0) 07/26/19 04:35 AST 51 U/L (15-37) H 07/26/19 04:35 ALT 55 U/L (12-78) 07/26/19 04:35 Alkaline Phosphatase 316 U/L (45-117) H 07/26/19 04:35 Home Medications: Glucerna 1.5 Vikas 237 ml FT QID #90 bot 02/10/18 Atorvastatin Calcium [Lipitor*] 20 mg FT BEDTIME #30 tab 11/14/18 traMADol HCL [Ultram*] 50 mg FT TID PRN #15 tab 11/14/18 Clopidogrel Bisulfate [Plavix*] 1 tab FT DAILY 07/14/19 Hydralazine [Apresoline*] 25 mg FT BID 07/14/19 Lisinopril [Prinivil*] 40 mg FT DAILY 07/14/19 Metformin HCl 500 mg FT BID 07/14/19 Ondansetron HCl 1 tab FT Q12H PRN 07/14/19 Pantoprazole [Protonix Tab*] 1 tab FT DAILY 07/14/19 Valacyclovir [Valtrex*] 500 mg FT BID 07/14/19 Diet: Regular Activity: Ad bao Followup: Gold Gallegos MD [ACTIVE - CAN ADMIT] -
== END 2019-07-26 15:21 | DRG 853 ==
LOC: ER 09:49 → ERHOLD 15:11 → 2ND 16:35 → 3RD-ICU 07-19 16:23 → 2ND 07-20 10:10
PROVIDERS: ADMIT Internal Medicine; ATTEND Family Medicine
PROC: 0Y6H0Z1 Detachment at Right Lower Leg, High, Open Approach (ICD-10-PCS; principal; 2019-07-20)
PROC: 0JBR0ZZ Excision of Left Foot Subcutaneous Tissue and Fascia, Open Approach (ICD-10-PCS; 2019-07-20)
PROC: 02HV33Z Insertion of Infusion Device into Superior Vena Cava, Percutaneous Approach (ICD-10-PCS; 2019-07-22)
DX: A41.9 Sepsis, unspecified organism (principal); G93.41 Metabolic encephalopathy; N30.00 Acute cystitis without hematuria; B37.41 Candidal cystitis and urethritis; R13.10 Dysphagia, unspecified; E11.51 Type 2 diabetes mellitus with diabetic peripheral angiopathy without gangrene; E11.621 Type 2 diabetes mellitus with foot ulcer; L97.529 Non-pressure chronic ulcer of other part of left foot with unspecified severity; L97.519 Non-pressure chronic ulcer of other part of right foot with unspecified severity; L89.150 Pressure ulcer of sacral region, unstageable; Z89.422 Acquired absence of other left toe(s); I69.30 Unspecified sequelae of cerebral infarction; Z79.4 Long term (current) use of insulin; Z93.1 Gastrostomy status
CPT/HCPCS: 36415; 51702; 70450; 70551; 71045; 80048; 80053; 80202; 81003; 81015; 82947; 83605; 83735; 84100; 84145; 85014; 85018; 85025; 85610; 85730; 87040; 87070; 87077; 87086; 87088; 87186; 87205; 88307; 93005; 93306; 94760; 96365; 96366; 96368; 99291; 99292; C9113; J0360; J0692; J1450; J1650; J2250; J2270; J2704; J3010; J3370; J3475; J3590; J7030; J7799

== ENCOUNTER 2019-08-07 12:17 | Emergency (ER) | payer MEDICAID ==
--- OUTSIDE RECORDS SUMMARY | 2019-08-07 12:19 | XMS REPORT ---
[...] Status Dosage System Date Date atorvastatin ND 69631966117 20mg Active 1 tablet by mouth at bedtime Pantoprazole ND 69068763356 40 MG Orally Active 1 tablet Sodium Once a day Promethazine HCl ND 72523903103 6.25 MG/5ML NovemberJanuary 23, Active 10 ml as Orally every 6 2018 2019 needed hrs HydrALAZINE HCl ND 58934154606 25 MG Orally Active 1 tablet Three times a with food day Tramadol HCl ND 15426734178 50 MG Orally Active as directed Lisinopril ND 44000941572 10 MG Orally Active 1 tablet Once a day Metformin HCl ND 34303858193 500 MG Orally Active 1 tablet Once a day with a meal Results No Known Results Summary Purpose eClinicalWorks Submission
--- OUTSIDE RECORDS SUMMARY | 2019-08-07 12:19 | XMS REPORT ---
[...] Status Dosage System Date Date Metformin HCl [facility] 37921498859 500 MG Orally Active 1 tablet Twice a day with a meal atorvastatin [facility] 55588030698 20mg oral at Active 1 tablet bedtime HydrALAZINE HCl [facility] 50620333758 25 MG Orally Active 1 tablet Twice a day with food Plavix [facility] 35470532972 75 MG Orally Swetha Active 1 tablet Once a day 2018 Pantoprazole [facility] 72069206766 40 MG Orally Active 1 tablet Sodium Once a day Results No Known Results Summary Purpose eClinicalWorks Submission
--- OUTSIDE RECORDS SUMMARY | 2019-08-07 12:20 | XMS REPORT ---
[...] End Status Dosage System Date Date Lisinopril [facility] 11315645723 10 MG Orally Active 1 tablet Once a day Pantoprazole ND 54558378938 40 MG Orally Active 1 tablet Sodium Once a day Metformin HCl ND 53585540432 500 MG Orally Active 1 tablet Twice a day with a meal Tramadol HCl ND 11896508313 50 MG Orally Active as directed Plavix ND 34790272655 75 MG Orally Active 1 tablet Once a day Atorvastatin ND 51812127086 20 MG Active TAKE 1 Calcium TABLET BY MOUTH AT BEDTIME HydrALAZINE HCl [facility] 40136332121 25 MG Orally Active 1 tablet Twice a day with food Lisinopril [facility] 99778467486 40 MG Orally Active 1 tablet Once a day Acetaminophen [facility] [address]-42 167 MG/5ML February 25Aug Active 5ml Orally every 2018 17, hrs 2019 Results No Known Results Summary Purpose eClinicalWorks Submission
--- OUTSIDE RECORDS SUMMARY | 2019-08-07 12:20 | XMS REPORT ---
[...] Start Date End Date Status Dosage Lisinopril [facility] 41970044772 40 MG Orally Once Active 1 tablet a day Results No Known Results Summary Purpose eClinicalWorks Submission
--- OUTSIDE RECORDS SUMMARY | 2019-08-07 12:20 | XMS REPORT ---
[...] End Status Dosage System Date Date Plavix [facility] 65827943679 75 MG Orally Active 1 tablet Once a day Atorvastatin [facility] 99703300295 20 MG Active TAKE 1 Calcium TABLET BY MOUTH AT BEDTIME Tramadol HCl [facility] 27710653873 50 MG Orally Active as directed HydrALAZINE HCl [facility] 16048054340 25 MG Orally Active 1 tablet Twice a day with food Pantoprazole [facility] 38697884258 40 MG Orally Active 1 tablet Sodium Once a day atorvastatin [facility] 03879848590 20mg oral at Active 1 tablet bedtime Acetaminophen [facility] [address]-54 167 MG/5ML February 25Aug Active 5ml Orally every 2018 17, hrs 2018 Lisinopril [facility] 56049239321 10 MG Orally Active 1 tablet Once a day Metformin HCl [facility] 63721410292 500 MG Orally Active 1 tablet Twice a day with a meal Results No Known Results Summary Purpose eClinicalWorks Submission
[2019-08-07 13:03] LABS: Absolute Lymphocytes (CBC) 1.8 K/uL (0.7-4.9); Basophils % 0.8 % (0-1.3); Hematocrit 28.5 % (36.0-45.0); MPV 8.4 fL (7.6-11.3); RBC Red Blood Cell Count 3.35 M/uL (3.86-4.86)
--- NOTE | 2019-08-07 13:19 | RAD REPORT ---
EXAM DESCRIPTION: RAD - Foot Left 3 View - 08/07/2019 12:59 pm CLINICAL HISTORY: Left Foot pain FINDINGS: No fracture or dislocation is seen. Second phalanx has been resected Erosion involves the medial aspect of the second metatarsal head likely osteomyelitis Osteoporosis Cortical regularity involves posterior and inferior aspect of the calcaneus equivocal for osteomyelit is Soft tissue ulceration medial forefoot. Cortical regularity involves the first metatarsal head equivo shiloh for osteomyelitis
[2019-08-07 13:28] LABS: BUN Blood Urea Nitrogen 35 mg/dL (7-18); Bicarbonate 29 mmol/L (21-32); Glucose Level 95 mg/dL (74-106); Potassium 4.7 mmol/L (3.5-5.1); Sodium Level 137 mmol/L (136-145)
--- NOTE | 2019-08-07 13:49 | EDPHYS ---
Physician Documentation [facility] Name: Juana Navarro Age: 59 yrs Sex: Female : 1960 Arrival Date: 08/07/2019 Time: 12:18 Bed 2 Private MD: ED Physician Francisco J Wolfe HPI: 08/07 13:18 This 59 yrs old Female presents to ER via EMS with complaints of Wound Check. rn 13:18 Patient presents to ED for recheck of: foot wound. The affected area is on the left rn foot. The patient has experienced a previous episode. The patient has been recently been admitted at [facility]. Brought in by EMS because family called 911 for wound recheck, they state she had right leg amputation a few weeks ago, has had wounds to left foot, they are not happy with the way they are healing, so wanted her reevaluated. Is seen in wound care for these wounds. . Historical: - Allergies: 12:50 No Known Allergies; sg - PMHx: 12:50 bed bound; CVA; Diabetes - NIDDM; G Tube; Hypertension; nonverbal; NPO, aspiration; sg - PSHx: 12:50 Toe amputations; sg - Immunization history:: Adult Immunizations up to date. - Social history:: Smoking status: Patient/guardian denies using tobacco. - Ebola Screening: : No symptoms or risks identified at this time. - Family history:: not pertinent. - Hospitalizations: : No recent hospitalization is reported. ROS: 13:18 Unable to obtain ROS due to patient's speech is incomprehensible. rn Exam: 13:18 Constitutional: No acute distress Head/Face: Normocephalic, atraumatic. ENT: MMM journeyman pressman: Regular rate and rhythm. No pulse deficits. Respiratory: No increased work of breathing, no retractions or nasal flaring. Abdomen/GI: Soft, non-tender, with normal bowel sounds. No distension or tympany. No guarding or rebound. No evidence of tenderness throughout. Skin: Warm, dry with normal turgor. Normal color with no rashes, no lesions, and no evidence of cellulitis. MS/ Extremity: + right lower leg amputation, left foot with mixture of dry gangrene to dorsum and medial surfaces of foot, 1st/2nd webspace between 1st and 3rd toes with deep wound, foul-smelling, some purulence and moist. Neuro: Awake and alert Vital Signs: 12:19 BP 111 / 66; Pulse 93; Resp 14; Temp 98.4; Pulse Ox 95% ; Weight 49.9 kg; bp 13:00 BP 131 / 76; Pulse 90; Resp 16; Pulse Ox 96% ; bp 14:00 BP 119 / 65; Pulse 91; Resp 16; Pulse Ox 95% ; bp 15:00 BP 101 / 52; Pulse 83; Resp 14; Pulse Ox 96% ; bp MDM: 12:18 Patient medically screened. rn 13:34 ED course: Called Dr. Barbour to discuss case and condition of wounds previously, no rn answer, will try again.. 13:43 Differential diagnosis: spoke with Dr. Barbour, known chronic osteomyelitis and wound rn seems to be at baseline, procalcitonin negative, normal WBC, MRI in March already showed osteo changes. 13:45 Data reviewed: vital signs, nurses notes, lab test result(s), radiologic studies, plain rn films, and as a result, I will discharge patient. Counseling: I had a detailed discussion with the patient and/or guardian regarding: the historical points, exam findings, and any diagnostic results supporting the discharge/admit diagnosis, lab results, radiology results, the need for outpatient follow up, to return to the emergency department if symptoms worsen or persist or if there are any questions or concerns that arise at home. ED course: Dr. Barbour recommends continuation of dressing/wound management and wound care and Dr. Gallegos f/u and does not feel patient requires admission at this time.. 08/07 12:28 Order name: CBC with Diff; Complete Time: 13:54 rn 08/07 12:28 Order name: Basic Metabolic Panel; Complete Time: 13:30 rn 08/07 12:28 Order name: Procalcitonin; Complete Time: 13:39 rn 08/07 12:28 Order name: Wound Culture rn 08/07 12:28 Order name: CRP; Complete Time: 13:30 rn 08/07 12:28 Order name: IV Start; Complete Time: 12:44 rn 08/07 12:28 Order name: XRAY Foot LEFT 3 View; Complete Time: 13:26 rn 08/07 12:28 Order name: Sed Rate; Complete Time: 13:54 rn Administered Medications: 13:58 Drug: NS 0.9% 500 ml Route: IV; Rate: bolus; Site: PICC; bp 15:15 Follow up: IV Status: Completed infusion; IV Intake: 500ml bp Disposition: 08/07/19 13:48 Discharged to Home. Impression: Chronic diabetic foot wounds, Osteomyelitis, unspecified. - Condition is Stable. - Discharge Instructions: Wound Check, Wound Care. - Prescriptions for calcium alginate (bulk) - Apply to affected area 1 application by TOPICAL route once daily As needed; 1 box. - SBAR form, Medication Reconciliation Form, Thank You Letter, Antibiotic Education, Prescription Opioid Use form. - Follow up: Gold Gallegos MD; When: 2 - 3 days; Reason: Recheck today's complaints, Re-evaluation by your physician. - Problem is an ongoing problem. - Symptoms are unchanged. Signatures: Dispatcher [employer] EDMS Sandeep Rendon RN RN sg Francisco J Wolfe MD MD rn Smirch, Shelby, RN RN ss Peltier, Brian, RN RN bp Corrections: (The following items were deleted from the chart) 13:25 13:18 Constitutional: No acute distress Head/Face: Normocephalic, atraumatic. ENT: MMM journeyman pressman: Regular rate and rhythm. No pulse deficits. Respiratory: No increased work of breathing, no retractions or nasal flaring. Abdomen/GI: Soft, non-tender, with normal bowel sounds. No distension or tympany. No guarding or rebound. No evidence of tenderness throughout. Skin: Warm, dry with normal turgor. Normal color with no rashes, no lesions, and no evidence of cellulitis. MS/ Extremity: + right lower leg amputation, left foot with mixture of dry gangrene to dorsum and medial surfaces of foot, 1st webspace with deep wound, foul-smelling, but not much purulence. Neuro: Awake and alert rn 19:12 13:48 08/07/2019 13:48 Discharged to Home. Impression: Chronic diabetic foot wounds; ss Osteomyelitis, unspecified. Condition is Stable. Forms are Medication Reconciliation Form, Thank You Letter, Antibiotic Education, Prescription Opioid Use. Follow up: Gold Gallegos; When: 2 - 3 days; Reason: Recheck today's complaints, Re-evaluation by your physician. Problem is an ongoing problem. Symptoms are unchanged. rn
--- NOTE | 2019-08-07 13:49 | ER ---
Nurse's Notes [facility] Name: Juana Navarro Age: 59 yrs Sex: Female : 1960 Arrival Date: 08/07/2019 Time: 12:18 Bed 2 Private MD: Diagnosis: Chronic diabetic foot wounds;Osteomyelitis, unspecified Presentation: 08/07 12:19 Presenting complaint: EMS states: FAMILY WISHES LEFT FOOT AMPUTATED. Transition of bp care: patient was received from another setting of care (long-term care facility), [facility]. Onset of symptoms is unknown. Risk Assessment: Do you want to hurt yourself or someone else? Patient reports no desire to harm self or others. Initial Sepsis Screen: Does the patient meet any 2 criteria? No. Patient's initial sepsis screen is negative. Does the patient have a suspected source of infection? No. Patient's initial sepsis screen is negative. Care prior to arrival: Glucose check: 115. 12:19 Method Of Arrival: EMS: [facility] bp 12:19 Acuity: DAVID 4 bp Triage Assessment: 12:19 General: Appears in no apparent distress. comfortable, Behavior is AT BASELINE. Pain: bp Denies pain. EENT: No deficits noted. Neuro: Level of Consciousness is AT BASELINE. Cardiovascular: No deficits noted. Respiratory: No deficits noted. GI: No signs and/or symptoms were reported involving the gastrointestinal system. : No signs and/or symptoms were reported regarding the genitourinary system. Derm: DIABETIC WOUNDS TO LEFT FOOT. Musculoskeletal: No deficits noted. Historical: - Allergies: 12:50 No Known Allergies; sg - PMHx: 12:50 bed bound; CVA; Diabetes - NIDDM; G Tube; Hypertension; nonverbal; NPO, aspiration; sg - PSHx: 12:50 Toe amputations; sg - Immunization history:: Adult Immunizations up to date. - Social history:: Smoking status: Patient/guardian denies using tobacco. - Ebola Screening: : No symptoms or risks identified at this time. - Family history:: not pertinent. - Hospitalizations: : No recent hospitalization is reported. Screenin:23 Abuse screen: Denies threats or abuse. Denies injuries from another. Nutritional bp screening: No deficits noted. Tuberculosis screening: No symptoms or risk factors identified. Fall Risk None identified. Assessment: 12:23 General: SEE TRIAGE NOTE. bp 13:43 Reassessment: Patient appears in no apparent distress at this time. sg 13:58 Reassessment: D/C ON HOLD FOR IVF COMPLETION. bp 15:14 Reassessment: [facility] CONTACTED FOR TRANSPORT. bp 17:27 Reassessment: Attempting to receive update on status of pt transfer. Nurse, Christiano from [facility] states that private ambulance service will be here for transport within the next hour. 18:42 Reassessment: [facility] AT B/S. bp Vital Signs: 12:19 BP 111 / 66; Pulse 93; Resp 14; Temp 98.4; Pulse Ox 95% ; Weight 49.9 kg; bp 13:00 BP 131 / 76; Pulse 90; Resp 16; Pulse Ox 96% ; bp 14:00 BP 119 / 65; Pulse 91; Resp 16; Pulse Ox 95% ; bp 15:00 BP 101 / 52; Pulse 83; Resp 14; Pulse Ox 96% ; bp ED Course: 12:18 Patient arrived in ED. am2 12:18 Francisco J Wolfe MD is Attending Physician. rn 12:19 Diego Irizarry, POLLY is Primary Nurse. bp 12:19 Arm band placed on. bp 12:20 Triage completed. bp 12:23 Patient has correct armband on for positive identification. Bed in low position. Call bp light in reach. Side rails up X2. 12:40 Wound culture swab sent to lab. sg 12:44 Initial lab(s) drawn, by me, sent to lab. Accessed PICC line. Blood collected. Clean \T\ sg dry. Dressing intact. Good blood return. Flushes easily. 12:59 XRAY Foot LEFT 3 View In Process Unspecified. EDMS 13:11 Wound care: to Decub to left foot located on left foot, webbing between left great toe sg and left third toe was cleaned with with soap water and hibiclens, dressed with 4X4s, Patient tolerated well. 13:42 Repositioned patient. sg 13:47 Gold Gallegos MD is Referral Physician. rn 18:43 No provider procedures requiring assistance completed. Patient did not have IV access bp during this emergency room visit. Administered Medications: 13:58 Drug: NS 0.9% 500 ml Route: IV; Rate: bolus; Site: PICC; bp 15:15 Follow up: IV Status: Completed infusion; IV Intake: 500ml bp Intake: 15:15 IV: 500ml; Total: 500ml. bp Outcome: 13:48 Discharge ordered by . rn 18:43 Discharged to correction. Report called to CHRISTIANO MATIASgrocery bagger form completed. bp 18:43 Condition: stable 18:43 Discharge instructions given to correction, Instructed on discharge instructions, follow up and referral plans. wound care, Demonstrated understanding of instructions, follow-up care, wound care. 19:12 Patient left the ED. ss Signatures: Dispatcher [employer] EDSandeep Cox RN RN sg Francisco J Wolfe MD MD rn Smirch, Shelby, RN RN Ebonie Farfan Brian, RN RN bp Corrections: (The following items were deleted from the chart) 13:43 13:11 Wound care: to Decub to left foot located on left foot, webbing between left sg great toe and left second toe was cleaned with with soap water and hibiclens, dressed with 4X4s, Patient tolerated well. sg
[2019-08-07] MEDS ORDERED: NA CHLORIDE 0.9% 500 ML ONE ×2 (13:57→15:11)
[2019-08-07 19:28] VITALS: TEMP 98.4
[2019-08-07 19:32] VITALS: BP 101/52; O2SAT 96
== END 2019-08-07 19:12 | disposition home or self-care (01) ==
LOC: ER 12:17
DX: M86.9 Osteomyelitis, unspecified (principal); E11.69 Type 2 diabetes mellitus with other specified complication; I10 Essential (primary) hypertension; Z89.422 Acquired absence of other left toe(s)
CPT/HCPCS: 87070; 85025; 80048; 36415; 87205; 85652; 84145; 86140; 73630; 96360; 99284; J7040 ×2

== ENCOUNTER 2019-09-28 11:03 | Inpatient (IN) | payer MEDICAID ==
--- OUTSIDE RECORDS SUMMARY | 2019-09-28 11:05 | XMS REPORT ---
[...] Status Dosage System Date Date atorvastatin ND 06413078018 20mg Active 1 tablet by mouth at bedtime Pantoprazole ND 36032746142 40 MG Orally Active 1 tablet Sodium Once a day Promethazine HCl ND 09526714173 6.25 MG/5ML NovemberJanuary 23, Active 10 ml as Orally every 6 2018 2019 needed hrs HydrALAZINE HCl ND 63962498754 25 MG Orally Active 1 tablet Three times a with food day Tramadol HCl ND 35388792671 50 MG Orally Active as directed Lisinopril ND 10577806882 10 MG Orally Active 1 tablet Once a day Metformin HCl ND 39246476689 500 MG Orally Active 1 tablet Once a day with a meal Results No Known Results Summary Purpose eClinicalWorks Submission
--- OUTSIDE RECORDS SUMMARY | 2019-09-28 11:05 | XMS REPORT ---
[...] Status Dosage System Date Date Metformin HCl [facility] 76091707612 500 MG Orally Active 1 tablet Twice a day with a meal atorvastatin [facility] 37671555487 20mg oral at Active 1 tablet bedtime HydrALAZINE HCl [facility] 97308385814 25 MG Orally Active 1 tablet Twice a day with food Plavix [facility] 40359408875 75 MG Orally Swetha Active 1 tablet Once a day 2018 Pantoprazole [facility] 61457052646 40 MG Orally Active 1 tablet Sodium Once a day Results No Known Results Summary Purpose eClinicalWorks Submission
--- OUTSIDE RECORDS SUMMARY | 2019-09-28 11:05 | XMS REPORT ---
[...] End Status Dosage System Date Date Plavix [facility] 32836469139 75 MG Orally Active 1 tablet Once a day Atorvastatin [facility] 34084122193 20 MG Active TAKE 1 Calcium TABLET BY MOUTH AT BEDTIME Tramadol HCl [facility] 03327027291 50 MG Orally Active as directed HydrALAZINE HCl [facility] 27800549067 25 MG Orally Active 1 tablet Twice a day with food Pantoprazole [facility] 76699946715 40 MG Orally Active 1 tablet Sodium Once a day atorvastatin [facility] 81320510408 20mg oral at Active 1 tablet bedtime Acetaminophen [facility] [address]-99 167 MG/5ML February 25Aug Active 5ml Orally every 2018 17, hrs 2018 Lisinopril [facility] 39518938364 10 MG Orally Active 1 tablet Once a day Metformin HCl [facility] 14865571062 500 MG Orally Active 1 tablet Twice a day with a meal Results No Known Results Summary Purpose eClinicalWorks Submission
--- OUTSIDE RECORDS SUMMARY | 2019-09-28 11:06 | XMS REPORT ---
[...] End Status Dosage System Date Date Lisinopril [facility] 60494390983 10 MG Orally Active 1 tablet Once a day Pantoprazole ND 65710999228 40 MG Orally Active 1 tablet Sodium Once a day Metformin HCl ND 01515763386 500 MG Orally Active 1 tablet Twice a day with a meal Tramadol HCl ND 90738826939 50 MG Orally Active as directed Plavix ND 41347925774 75 MG Orally Active 1 tablet Once a day Atorvastatin ND 06980919427 20 MG Active TAKE 1 Calcium TABLET BY MOUTH AT BEDTIME HydrALAZINE HCl [facility] 75436971609 25 MG Orally Active 1 tablet Twice a day with food Lisinopril [facility] 91611679451 40 MG Orally Active 1 tablet Once a day Acetaminophen [facility] [address]-03 167 MG/5ML February 25Aug Active 5ml Orally every 2018 17, hrs 2019 Results No Known Results Summary Purpose eClinicalWorks Submission
--- OUTSIDE RECORDS SUMMARY | 2019-09-28 11:06 | XMS REPORT ---
[...] Start Date End Date Status Dosage Lisinopril [facility] 88753063495 40 MG Orally Once Active 1 tablet a day Results No Known Results Summary Purpose eClinicalWorks Submission
[2019-09-28 12:02] LABS: Absolute Lymphocytes (CBC) 1.6 K/uL (0.7-4.9); Basophils % 0.7 % (0-1.3); Hematocrit 35.4 % (36.0-45.0); Lymphocytes % 10.7 % (15.3-44.8); MPV 7.8 fL (7.6-11.3); RBC Red Blood Cell Count 4.33 M/uL (3.86-4.86)
--- NOTE | 2019-09-28 12:08 | RAD REPORT ---
EXAM DESCRIPTION: RAD - Foot Left 3 View - 09/28/2019 12:01 pm CLINICAL HISTORY: eval for osteo Pain and swelling COMPARISON: Foot Left 3 View dated 08/07/2019; Foot Left 3 View dated 03/27/2019 FINDINGS: Second toe amputation changes are noted. Destructive bony changes involve the second metat arsal head and probably the lateral aspect of the first metatarsal head compatible with osteomyelitis . No evidence of soft tissue gas. Small calcaneal spurs. Prominent vascular calcification. IMPRESSION: Osteomyelitis is present, most severe in the region of the second metatarsal head.
[2019-09-28 12:12] LABS: Potassium 4.6 mmol/L (3.5-5.1)
[2019-09-28] MEDS ORDERED: NA CHLORIDE 0.9% 1,000 ML ONE (12:29)
[2019-09-28] MEDS ORDERED: PIPER/TAZO/NS 3.375gm 3.375 GM/100 ML BAG ONE (12:29)
--- NOTE | 2019-09-28 12:29 | ER ---
Nurse's Notes [facility] Name: Juana Navarro Age: 59 yrs Sex: Female : 1960 Arrival Date: 09/28/2019 Time: 11:05 Bed 25 Private MD: Gold Gallegos Diagnosis: Gangrene, not elsewhere classified-Left foot;Osteomyelitis, unspecified Presentation: 09/28 11:05 Presenting complaint: Child states: left foot infections, sent from [facility] for admission. sv Wounds have been ongoing. Transition of care: patient was not received from another setting of care. Onset of symptoms was 2018. Care prior to arrival: None. 11:05 Method Of Arrival: Wheelchair sv 11:05 Acuity: DAVID 3 sv 11:25 Initial Sepsis Screen: Does the patient meet any 2 criteria? HR > 90 bpm. No. Patient's em initial sepsis screen is negative. Does the patient have a suspected source of infection? Yes: Skin breakdown/wound. Historical: - Allergies: 11:05 No Known Allergies; sv - PMHx: 11:05 bed bound; CVA; Diabetes - NIDDM; G Tube; Hypertension; nonverbal; NPO, aspiration; sv - PSHx: 11:05 Toe amputations; sv - Immunization history:: Adult Immunizations unknown. - Family history:: not pertinent. - Social history:: Smoking status: unknown. - Hospitalizations: : No recent hospitalization is reported. Screenin:25 Abuse screen: no apparent signs noted. Nutritional screening: No deficits noted. em Tuberculosis screening: No symptoms or risk factors identified. Fall Risk None identified. Assessment: 11:25 General: Appears in no apparent distress. comfortable, Behavior is calm, cooperative, em Denies fever, family states pt was sent over from wound healing to be admitted to hospital, pt is nonverbal due to previous strokes. Pain: Unable to use pain scale. FLACC scale score is 0 out of 10. Neuro: Level of Consciousness is awake, alert, obeys commands. Cardiovascular: Capillary refill < 3 seconds Patient's skin is warm and dry. Respiratory: Airway is patent Respiratory effort is even, unlabored, Respiratory pattern is regular, symmetrical. Derm: Skin is intact, is fragile, Skin is pink, warm \T\ dry. Wound noted left foot. Musculoskeletal: Amputation of right barreto, anterior aspect of right ankle and dorsum of right foot. Capillary refill < 3 seconds. 12:00 Reassessment: Patient appears in no apparent distress at this time. skin pink warm and em dry, respirations even and unlabored, family at bedside. 13:23 Reassessment: skin pink warm and dry, respirations even and unlabored, resting quietly em with eyes closed. Vital Signs: 11:07 BP 105 / 74; Pulse 118; Resp 18; Temp 97; Pulse Ox 100% ; sv 12:32 BP 114 / 63; Pulse 91; Resp 18; Pulse Ox 100% on R/A; em 13:30 BP 126 / 62; Pulse 90; Resp 16; Pulse Ox 98% on R/A; Pain 0/10; em 13:30 [facility]-B[facility] (FACES) em ED Course: 11:05 Patient arrived in ED. as 11:05 Gold Gallegos MD is Private Physician. as 11:05 Arm band placed on. sv 11:07 Triage completed. sv 11:13 Francisco J Wolfe MD is Attending Physician. rn 11:25 Jigar Trujillo RN is Primary Nurse. em 11:25 Patient has correct armband on for positive identification. Placed in gown. Bed in low em position. Call light in reach. Side rails up X2. Adult w/ patient. Pulse ox on. NIBP on. 12:01 XRAY Foot LEFT 3 View In Process Unspecified. EDMS 12:05 Inserted saline lock: 22 gauge in right forearm, using aseptic technique. em 12:05 Wound culture swab sent to lab. em 12:28 Remington Marroquin MD is Hospitalizing Provider. rn Administered Medications: 12:46 Drug: Zosyn 3.375 grams Route: IVPB; Infused Over: 60 mins; Site: left forearm; em 14:00 Follow up: Response: No adverse reaction; IV Status: Completed infusion; IV Intake: em 100ml 12:46 Drug: NS 0.9% 1000 ml Route: IV; Rate: 100 ml/hr; Site: left forearm; em Outcome: 12:29 Decision to Hospitalize by Provider. rn 15:02 Patient left the ED. mg2 Signatures: Dispatcher [employer] Shobha Gerard RN RN Jigar Trujillo RN RN em Araceli Gallegos as Wolfe, Francisco J, MD MD rn Gardose, Hunter, RN RN mg2
--- NOTE | 2019-09-28 12:29 | EDPHYS ---
Physician Documentation [facility] Name: Juana Navarro Age: 59 yrs Sex: Female : 1960 Arrival Date: 09/28/2019 Time: 11:05 Bed 25 Private MD: Gold Pandya ED Physician Francisco J Wolfe HPI: 09/28 12:24 This 59 yrs old Female presents to ER via Wheelchair with complaints of rn Gangrene L Foot. 12:24 The patient presents with. rn 12:24 the patient presents with a swollen area of the left foot. Description: erythematous, rn swollen, warm. Onset: The symptoms/episode began/occurred at an unknown time. Modifying factors: the symptoms are alleviated by nothing, the symptoms are aggravated by nothing. Severity of symptoms: At their worst the symptoms were moderate, in the emergency department the symptoms are unchanged. The patient has experienced similar episodes in the past. Sent by Dr. pandya for admission and amputation tomorrow, for wet gangrene, has been battling this for last 2 months. . Historical: - Allergies: 11:05 No Known Allergies; sv - PMHx: 11:05 bed bound; CVA; Diabetes - NIDDM; G Tube; Hypertension; nonverbal; NPO, aspiration; sv - PSHx: 11:05 Toe amputations; sv - Immunization history:: Adult Immunizations unknown. - Family history:: not pertinent. - Social history:: Smoking status: unknown. - Hospitalizations: : No recent hospitalization is reported. ROS: 12:24 Constitutional: Negative for fever, chills, and weight loss, Eyes: Negative for injury, rn pain, redness, and discharge, Cardiovascular: Negative for chest pain, palpitations, and edema, Respiratory: Negative for shortness of breath, cough, wheezing, and pleuritic chest pain, Abdomen/GI: Negative for abdominal pain, nausea, vomiting, diarrhea, and constipation, MS/Extremity: Negative for injury Skin: + infection to left foot Neuro: Negative for headache, weakness, numbness, tingling, and seizure. Exam: 12:24 Constitutional: This is a well developed, well nourished patient who is awake, alert, rn and in no acute distress. Head/Face: Normocephalic, atraumatic. ENT: dry MM Cardiovascular: tachycardic, regular Respiratory: No increased work of breathing, no retractions or nasal flaring. Abdomen/GI: soft, non-tender Skin: Warm, dry MS/ Extremity: Left foot with multiple areas of ulceration/wounds, left medial and dorsal 2nd digit with minimal drainage, + foul smell, + erythema and warmth of distal foot. Vital Signs: 11:07 BP 105 / 74; Pulse 118; Resp 18; Temp 97; Pulse Ox 100% ; sv 12:32 BP 114 / 63; Pulse 91; Resp 18; Pulse Ox 100% on R/A; em 13:30 BP 126 / 62; Pulse 90; Resp 16; Pulse Ox 98% on R/A; Pain 0/10; em 13:30 Zamora-Benson (FACES) em MDM: 11:26 Patient medically screened. rn 12:24 Differential diagnosis: cellulitis, osteomyelitis, wet gangrene. Data reviewed: vital rn signs, nurses notes, lab test result(s), radiologic studies, plain films, and as a result, I will admit patient. Counseling: I had a detailed discussion with the patient and/or guardian regarding: the historical points, exam findings, and any diagnostic results supporting the discharge/admit diagnosis, radiology results, the need for further work-up and treatment in the hospital. Admission orders: after a detailed discussion of the patient's condition and case, the admit orders are written by me. 09/28 11:33 Order name: CBC with Diff; Complete Time: 12:17 rn 09/28 11:33 Order name: Basic Metabolic Panel; Complete Time: 12:17 rn 09/28 11:33 Order name: Protime (+inr) rn 09/28 11:33 Order name: Ptt, Activated rn 09/28 11:33 Order name: Blood Culture Adult (2) rn 09/28 11:33 Order name: Procalcitonin rn 09/28 11:33 Order name: IV Start; Complete Time: 12:21 rn 09/28 11:33 Order name: XRAY Foot LEFT 3 View; Complete Time: 12:17 rn 09/28 11:36 Order name: Wound Culture rn 09/28 12:01 Order name: Labs - recollect needed; Complete Time: 13:21 bd Administered Medications: 12:46 Drug: Zosyn 3.375 grams Route: IVPB; Infused Over: 60 mins; Site: left forearm; em 14:00 Follow up: Response: No adverse reaction; IV Status: Completed infusion; IV Intake: em 100ml 12:46 Drug: NS 0.9% 1000 ml Route: IV; Rate: 100 ml/hr; Site: left forearm; em Disposition: 09/28/19 12:29 Hospitalization ordered by Remington Marroquin for Inpatient Admission. Preliminary diagnosis are Gangrene, not elsewhere classified - Left foot, Osteomyelitis, unspecified. - Bed requested for Telemetry/MedSurg (Inpatient). - Status is Inpatient Admission. mg2 - Condition is Stable. - Problem is new. - Symptoms have improved. UTI on Admission? No Signatures: Dispatcher [employer] EDMS Angela James Stephanie, RN RN Ruby Deleon RN RN dw Munoz, Edgar, RN RN em Francisco J Wolfe MD MD rn Gardose, Michele, RN RN mg2 Corrections: (The following items were deleted from the chart) 13:09 12:29 Hospitalization Ordered by Remington Marroquin MD for Inpatient Admission. Preliminary dw diagnosis is Gangrene, not elsewhere classified - Left foot; Osteomyelitis, unspecified. Bed requested for Telemetry/MedSurg (Inpatient). Status is Inpatient Admission. Condition is Stable. Problem is new. Symptoms have improved. UTI on Admission? No. rn 15:02 13:09 09/28/2019 12:29 Hospitalization Ordered by Remington Marroquin MD for Inpatient mg2 Admission. Preliminary diagnosis is Gangrene, not elsewhere classified - Left foot; Osteomyelitis, unspecified. Bed requested for Telemetry/MedSurg (Inpatient). Status is Inpatient Admission. Condition is Stable. Problem is new. Symptoms have improved. UTI on Admission? No. dw
[2019-09-28 13:12] LABS: Protime INR 1.11
[2019-09-28] MEDS ORDERED: ONDANSETRON 4 MG/2 ML VIAL IV PRN (15:17)
[2019-09-28] MEDS ORDERED: ACETAMINOPHEN 500 MG TAB PO PRN (15:17)
[2019-09-28 16:12] VITALS: BMI 24.7
[2019-09-28] MEDS: INSULIN -REGULAR HUMAN 50 UNIT/0.5 ML ML SQ SCH ×2 (16:30→21:00)
[2019-09-28] MEDS: VANCOMYCIN/NS 1 gm 1 GM/250 ML BAG IVPB SCH (17:52)
[2019-09-28] MEDS: CEFEPIME/SWI 2gm 2 GM/20 ML SYR IVP SCH (18:00)
[2019-09-28] MEDS ORDERED: INFLUENZA VACCINE (for 3y+) 0.5 ML DOSE IMVAC ONE (18:00)
[2019-09-28] MEDS: NA CHLORIDE 0.9% 1,000 ML IV SCH (20:11)
[2019-09-28] MEDS: GLUCERNA 1.5 CAL 1,000 ML BOT FT SCH (20:12)
--- NOTE | 2019-09-28 20:53 | HP ---
Date of Admission: 09/28/2019 Chief Complaint: Left lower extremity wound. Consultants: 1.Gold Gallegos M.D., General Surgery. 2.Waqar Stark M.D., Cardiology. Code Status: Full. History Of Present Illness: Patient is a 59-year-old female with past medical history of cerebrovasc ular accident with aphasia, hypertension, diabetes, dysphagia now with PEG tube, who has chronic diab etic foot ulcers, who [facility] after recent right BKA in July, was found to have worsening wounds on her left foot and was referred for admission due to need for surgical amputation. Patient denies any fevers or chills. Her workup, however, did reveal elevated white blood cell count [id number], procalcitonin was negative. There were no signs of sepsis. T he patient's foot x-ray showed osteomyelitis in the second metatarsal. The patient's symptoms are co nstant, moderate, progressively worsening. It should be noted that the history was taken by family carmen ruelas, previous chart, and ER staff due to patient's aphasia. Patient was then referred for admissi on. When seen in the ER, she was awake, alert, not in any acute distress. Past Medical History: Diabetes mellitus type 2, dix-rhfkhde-pznebvjml, hyperlipidemia, neuropathy, d ysphagia status post PEG tube, history of cerebrovascular accident with residual aphasia, hypertensio n. Surgical History: PEG tube placement, hysterectomy. Allergies: NO KNOWN DRUG ALLERGIES. Medications: List reviewed. Social History: No current alcohol use, tobacco use, or illicit drug use. The patient lives at home , recently was at a nursing facility, did finish up 6 weeks of IV antibiotics. Has several children. The daughters are medical power of county attorney. Patient is . Family History: Mother had stroke. Father had heart disease. Physical Examination: Vital Signs: Temperature 97, heart rate 86, blood pressure 118/66, respirations 20, O2 98% on room a ir. General: Awake, alert, not in any acute distress. Mildly ill-appearing female. HEENT: Normocephalic, atraumatic. PERRLA. EOMI. Moist mucous membranes. Oropharynx is clear. Co njunctivae are anicteric. Neck: Supple. No JVD. Trachea midline. CV: S1, S2. Regular rate and rhythm. Peripheral pulses weak. Respiratory: Moving air well bilaterally. No wheezing or stridor. Gastrointestinal: Abdomen is soft, nontender, nondistended. Positive bowel sounds. PEG tube in carmen ce. Extremities: No clubbing, cyanosis. Patient has some edema of the left lower extremity. Musculoskeletal: Right BKA. Neuro: The patient is aphasic, has facial droop, nonfocal. Skin: Patient has multiple diabetic foot ulcers on the left foot with drainage, foul-smelling odor. Psych: Deferred. Laboratory Data: WBC 14.5, H and H 11.9 and 35.4, platelets 578, neutrophils 84%. INR 1.11. Sodium 134, potassium 4.6, chloride 98, CO2 of 29, BUN 30, creatinine 0.98, glucose 169, calcium 9.6. Proc alcitonin less than 0.05. Imaging Studies: Foot x-ray shows osteomyelitis, most severe in the region of the second metatarsal head. Assessment: A 59-year-old female with, 1.Left lower extremity diabetic foot wound, now with osteomyelitis and cellulitis. We will start on broad spectrum IV antibiotics. Blood cultures have been obtained. We will obtain wound cultures as well. Dr. Gallegos with General Surgery planning on below-knee amputation on the left. Spoke with Dr. Stark. Patient had a recent echocardiogram in July, EF was 63%, mild aortic sclerosis. He has cleared the patient from Cardiology standpoint for procedure in a.m. The patient does have elev ated white blood cell count. No signs of sepsis. 2.History of cerebrovascular accident with residual deficit. 3.Dysphagia, status post PEG tube placement. We will continue with feeds, n.p.o. after midnight. 4.Diabetes mellitus type 2 without long-term use of insulin with circulatory complications and perip heral angiopathy without gangrene. Continue with sliding scale insulin and monitor blood glucose lev els. 5.Sacral decubitus ulcer. We will continue with offloading and wound care. 6.Mixed hyperlipidemia. 7.Diabetic neuropathy. 8.Essential hypertension, stable. Plan: Admit patient to Med-Surg, place as inpatient. Length of stay greater than 2 midnights. /FERNANDAL Voice ID: [id number]
--- NOTE | 2019-09-28 20:53 | CON ---
Date of Consultation: 09/28/2019 Reason For Consultation: Cardiac clearance for left foot gangrene. History Of Present Illness: Ms. Navarro is 59 has had a rather very complicated past medical history . She is basically bed bound, has had toe amputations in the past. Has had left foot necrotic ulcer debridement and a BKA on the right side in July [address] Gallegos. At that time, an echoc ardiogram that was done was normal. She also has a history of diabetes, CVA. She is nonverbal. She has a history of hypertension, a G-tube. She was admitted with gangrenous left foot and there is a plan to do amputation on the left leg as well. She has no cardiac symptoms reported. Allergies: NONE. Review of Systems: Negative. Social History: Negative. Family History: Noncontributory. Medications: At home include Lipitor, Plavix, hydralazine, metformin, Protonix, Valtrex, lisinopril, Ultram. Physical Examination: Vital Signs: Stable. She was in sinus rhythm. HEENT: Negative. Neck: Supple with no bruit. Chest: Clear. Cardiac: Normal. Abdomen: Benign. Extremities: Revealed gangrene in the left foot. She is status post right BKA. Diagnostic Data: Fairly unremarkable. X-ray of the left foot showed osteomyelitis of the second met atarsal head. White count was 14,500. EKG and x-ray were unremarkable. Impression And Plan: Ms. Navarro needs surgery in her left foot, I am assuming she can have a left B KA. She is cleared from a cardiovascular standpoint. Her blood pressure is well controlled. Her EK G and x-ray are unremarkable. Echocardiogram in July of 2019 was normal and she is not having an y cardiac symptoms or clinical evidence of CHF. I do not see the need of repeating any cardiac anny p. We will clear her for surgery. We will be available for questioning if the need arises. Other p roblems are multiple including PAD, diabetes, history of CVA, being bedbound, having a G-tube, hypert ension, and aphasia. Those problems are stable at this point. NB/MODL Voice ID: [id number] Report ID: [id number]
[2019-09-28] MEDS ORDERED: CEFEPIME 2 GM VIAL IV SCH (21:00)
[2019-09-29] MEDS: NA CHLORIDE 0.9% 1,000 ML IV SCH ×4 (00:21→20:00)
[2019-09-29 04:13] LABS: Absolute Lymphocytes (CBC) 1.9 K/uL (0.7-4.9); Basophils % 0.4 % (0-1.3); Hematocrit 27.6 % (36.0-45.0); Lymphocytes % 16.2 % (15.3-44.8); MPV 7.9 fL (7.6-11.3); RBC Red Blood Cell Count 3.35 M/uL (3.86-4.86)
[2019-09-29 04:22] LABS: BUN Blood Urea Nitrogen 26 mg/dL (7-18); Bicarbonate 29 mmol/L (21-32); Glucose Level 114 mg/dL (74-106); Potassium 4.2 mmol/L (3.5-5.1); Sodium Level 141 mmol/L (136-145)
[2019-09-29] MEDS: INSULIN -REGULAR HUMAN 50 UNIT/0.5 ML ML SQ SCH ×4 (07:30→20:04)
[2019-09-29] MEDS: GLUCERNA 1.5 CAL 1,000 ML BOT FT SCH ×4 (07:43→19:59)
[2019-09-29] MEDS: CEFEPIME/SWI 2gm 2 GM/20 ML SYR IVP SCH ×2 (08:23→20:00)
[2019-09-29] MEDS ORDERED: MIDAZOLAM HCL 2 MG/2 ML INJ ONE (11:41)
[2019-09-29] MEDS ORDERED: propofoL 200 MG/20 ML VIAL IV ONE (11:41)
[2019-09-29] MEDS ORDERED: LIDOCAINE 1% MPF 30 ML VIAL ONE (11:47)
[2019-09-29] MEDS ORDERED: Phenylephrine HCl 10 MG/ML 1 ML VIAL ONE (11:53)
[2019-09-29] MEDS ORDERED: NS 0.9% VIAL 10 ML ONE (12:07)
[2019-09-29] MEDS ORDERED: Ringers Lactate 1,000 ML IV ONE (12:17)
--- NOTE | 2019-09-29 12:51 | P.BOP ---
Preoperative diagnosis: gangrene left foot Postoperative diagnosis: same Primary procedure: Left below knee amputation Office Nurse Practitioner: CATHI KUNZ (Ruel COOK) Estimated blood loss: <75cc Specimen: leg Findings: as above Anesthesia: Spinal Complications: None Transferred to: Recovery Room Condition: Good
[2019-09-29] MEDS ORDERED: HYDROCODONE/APAP 5/325 MG TAB PO PRN (12:55)
--- NOTE | 2019-09-29 13:52 | CON ---
Reason For Service: Gangrenous changes on the left foot with diabetic foot wounds, necrotic skin, os teomyelitis, cellulitis. History Of Present Illness: This is the case of a female, known by us, since several months ago at t he end of last year, an amputation of the right lower extremity due to gangrenous changes of the foot . Patient is doing well with that one. She healed that area nicely, but now the left foot starts sh owing signs of gangrene and [facility], noticed to have a foot gangrene, sent to be admitted. Patient needs urgent treatment. Most of the information is ob tained from the patient family. The patient does not give much of information. This is a chronic co ndition. Past Medical History: Diabetes, hyperlipidemia, neuropathy, dysphagia, CVAs, hypertension. Surgical History: Right below-knee amputation, hysterectomy, PEG tube placement. Allergies: NONE. Medications: Review. Family History: Heart disease. She does not smoke. She does not drink alcohol. Physical Examination: General: Patient is awake and alert. HEENT: Pupils are equal and reactive, anicteric. Neck: Supple. Chest: Clear. Abdomen: Soft and depressible. No guarding or rebound. Rectal: Deferred. Breast: Deferred. Pelvic: Deferred. Extremities: Right below-knee amputation looks intact with no open wounds. No cellulitis, but the l eft foot shows some gangrene, multiple, at least 5 places with wet gangrene showing up on that area c ellulitis, there is bone exposed and patient needs surgery. She needs at least below-knee amputation . Circulation was not to be the greatest, but she does not want above knee and last time she did wel l with just below-knee amputation of the right side, so we going to try that first. The benefits, alternatives, and risks fully explained to her and the family present, which include, b ut not limited to infection, bleeding, damage to adjacent structures and complications, nonhealing wo und, flap failure, need for higher amputation, TN, even . She also understands this may not rel ieve the symptoms. She might need more than one surgical intervention. She understood. Patient was admitted to the hospital, getting cardiac clearance and medical evaluation and then proceed with nany lali as soon as possible. HM/MODL Voice ID: [id number] Report ID: [id number]
[2019-09-29] MEDS: VANCOMYCIN/NS 1 gm 1 GM/250 ML BAG IVPB SCH (17:01)
[2019-09-29] MEDS: MORPHINE 2 MG/ML SYR IV PRN ×2 (18:08→21:40)
--- NOTE | 2019-09-29 19:13 | PN ---
Date of Progress Note: 09/29/2019 Subjective: Patient seen and examined. Chart reviewed and case discussed with Dr. Gallegos and Dr. Johnson. Patient is going for left BKA today. Family at the bedside. Treatment plan explained. All questions answered. Medications: List reviewed. Physical Examination: Vital Signs: Temperature 98.2, heart rate 76 blood pressure 91/50, respirations 16, O2 99% on room a ir. General: Awake, alert, not in any acute distress, ill-appearing female. CV: S1, S2. Regular rate and rhythm. Respiratory: Moving air well bilaterally. Abdomen: Soft, nontender, nondistended. Positive bowel sounds. No guarding or rigidity. Extremities: No clubbing, cyanosis. Patient has mild edema of the left lower extremity. Right BKA. Neurologic: Nonfocal. Patient is aphasic. Laboratory Data: Sodium 141, potassium 4.2, chloride 108, CO2 of 29, BUN 26, creatinine 0.62, glucos e 114, calcium 8.5. WBC 11.6, H and H 9.2 and 27.6, platelets 439, neutrophils 73%. Cultures are pe nding at this time. Assessment And Plan: A 59-year-old female with: 1.Acute left lower extremity diabetic foot wound, now with osteomyelitis. Patient is scheduled for left below-knee amputation today. Continue with IV antibiotics. Appreciate Dr. Gallegos's input. W e will consult with Infectious Disease, Dr. Johnson. Patient may need long-term IV antibiotics depend ing on culture results. 2.Cellulitis of left lower extremity. Continue antibiotics. Cultures are pending at this time. 3.History of cerebrovascular accident with aphasia. 4.Dysphagia, status post PEG tube placement. Continue with Glucerna. 5.Diabetes mellitus type 2 without long-term use of insulin with circulatory complications, peripher al angiopathy without gangrene. We will continue sliding scale insulin. Monitor blood glucose level s. 6.Sacral decubitus ulcer, present on admission. Continue offloading and wound care. 7.Mixed hyperlipidemia. Continue statin. 8.Diabetic neuropathy. 9.Essential hypertension. 10.Deep venous thrombosis prophylaxis. Resume Lovenox 24 hours post surgery. 11.Disposition: Pending surgery and culture results. May need SNF versus LTAC for wound care and l fatou-term IV antibiotics versus home with p.o. antibiotics. SA/MODL Voice ID: [id number] Report ID: [id number]
[2019-09-29] MEDS: ATORVASTATIN 20 MG TAB FT SCH (20:00)
[2019-09-29] MEDS: HYDRALAZINE HCL 25 MG TABLET FT SCH (20:00)
[2019-09-29] MEDS: TRAMADOL HCL 50 MG TAB FT PRN (23:43)
[2019-09-30 05:59] LABS: Absolute Lymphocytes (CBC) 1.1 K/uL (0.7-4.9); Basophils % 0.4 % (0-1.3); Hematocrit 26.6 % (36.0-45.0); Lymphocytes % 6.1 % (15.3-44.8); MPV 7.6 fL (7.6-11.3); RBC Red Blood Cell Count 3.26 M/uL (3.86-4.86)
[2019-09-30] MEDS: NA CHLORIDE 0.9% 1,000 ML IV SCH (06:00)
[2019-09-30 06:16] LABS: BUN Blood Urea Nitrogen 19 mg/dL (7-18); Bicarbonate 25 mmol/L (21-32); Glucose Level 133 mg/dL (74-106); Sodium Level 141 mmol/L (136-145)
[2019-09-30] MEDS: INSULIN -REGULAR HUMAN 50 UNIT/0.5 ML ML SQ SCH ×4 (07:30→21:00)
[2019-09-30] MEDS: GLUCERNA 1.5 CAL 1,000 ML BOT FT SCH ×4 (09:00→21:05)
[2019-09-30] MEDS: CEFEPIME/SWI 2gm 2 GM/20 ML SYR IVP SCH ×2 (09:00→21:02)
[2019-09-30] MEDS: HYDRALAZINE HCL 25 MG TABLET FT SCH ×2 (09:04→21:05)
[2019-09-30] MEDS: lisinopriL 20 MG TAB FT SCH (09:05)
[2019-09-30] MEDS: TRAMADOL HCL 50 MG TAB FT PRN (09:24)
[2019-09-30] MEDS: MORPHINE 2 MG/ML SYR IV PRN ×2 (10:00→17:07)
--- NOTE | 2019-09-30 15:29 | PN ---
Date of Progress Note: 09/30/2019 Subjective: The patient seen and examined. Chart reviewed and case discussed with RN, daughter at t he bedside. Treatment plan explained. All questions answered. Medications: List reviewed. Physical Examination: Vital Signs: Temperature 97.5, heart rate 103, blood pressure 145/74, respirations 18, O2 97% on feli m air. General: Awake, alert, in some mild distress due to pain, ill-appearing female. CV: S1, S2. Regular rate and rhythm. Respiratory: Moving air well bilaterally. No wheezing or stridor. Gastrointestinal: Abdomen is soft, nontender, nondistended. Positive bowel sounds. Extremities: The patient now has bilateral BKA. Incision site on left lower extremity is clean, dry , intact. Neuro: Patient is aphasic. Laboratory Data: Sodium 141, potassium 4, chloride 108, CO2 of 25, BUN 19, creatinine 0.6, glucose 1 33, lactate 0.6, calcium 8.3. WBC 17.4, H and H 9 and 26.6, platelets 394, neutrophils 84%. Wound c ultures growing out Enterobacter cloacae and MRSA, sensitive to vancomycin and cefepime respectively. Blood cultures showed no growth to date. Assessment And Plan: A 59-year-old female with. 1.Acute left lower extremity diabetic foot wound with osteomyelitis, status post left BKA, postopera tive day #1. Appreciate Dr. Gallegos's input. Continue with IV antibiotics. Cultures from the woun d are growing enterobacter and MRSA, currently on vancomycin and cefepime. White blood cell count is trending upward. Her lactate, however, is negative. We will continue antibiotics for now, may need to adjust if continues to worsen. 2.Cellulitis of the left lower extremity, status post BKA, positive wound cultures. Patient will li violetta need long-term IV antibiotics 4-6 weeks. We will await ID recommendations. We will have a PICC line placed. 3.History of cerebrovascular accident with aphasia. 4.Dysphagia, status post percutaneous endoscopic gastrostomy tube placement. Continue with tube fee ds. 5.Diabetes mellitus type 2 with long-term use of insulin with circulatory complications. We will co ntinue with sliding scale insulin and monitor blood glucose levels. 6.Sacral decubitus ulcer, present on admission. Continue offloading. 7.Mixed hyperlipidemia. Continue statin. 8.Diabetic neuropathy. 9.Essential hypertension, stable. 10.Deep venous thrombosis prophylaxis. Lovenox. Plan: The patient will likely need SNF or LTAC for long-term wound care and IV antibiotics. /RICHI Voice ID: [id number] Report ID: [id number]
[2019-09-30] MEDS: VANCOMYCIN/NS 1 gm 1 GM/250 ML BAG IVPB SCH ×2 (17:07→18:16)
[2019-09-30] MEDS: ATORVASTATIN 20 MG TAB FT SCH (21:04)
[2019-10-01 06:27] LABS: BUN Blood Urea Nitrogen 23 mg/dL (7-18); Bicarbonate 27 mmol/L (21-32); Glucose Level 160 mg/dL (74-106); Potassium 3.9 mmol/L (3.5-5.1); Sodium Level 140 mmol/L (136-145)
[2019-10-01] MEDS: CEFEPIME/SWI 2gm 2 GM/20 ML SYR IVP SCH (07:14)
[2019-10-01] MEDS: lisinopriL 20 MG TAB FT SCH (07:14)
[2019-10-01] MEDS: HYDRALAZINE HCL 25 MG TABLET FT SCH ×2 (07:15→21:54)
[2019-10-01] MEDS: INSULIN -REGULAR HUMAN 50 UNIT/0.5 ML ML SQ SCH ×4 (07:30→21:00)
[2019-10-01 07:35] LABS: Absolute Lymphocytes (CBC) 1.3 K/uL (0.7-4.9); Basophils % 0.4 % (0-1.3); Hematocrit 24.4 % (36.0-45.0); Lymphocytes % 9.7 % (15.3-44.8); MPV 7.9 fL (7.6-11.3); RBC Red Blood Cell Count 2.93 M/uL (3.86-4.86)
[2019-10-01] MEDS: GLUCERNA 1.5 CAL 1,000 ML BOT FT SCH ×4 (08:28→21:55)
--- NOTE | 2019-10-01 08:39 | OP ---
Date of Procedure: 09/29/2019 Surgeon: Gold Gallegos MD Sand Hauler: Asia Mahmood and JOYCE Warner. Preoperative Diagnosis: Gangrene left foot. Postoperative Diagnosis: Gangrene left foot. Procedure: Left below-knee amputation. Estimated Blood Loss: Less than 75 mL. Specimens: Leg. Anesthesia: Spinal. Indications: This is a case of a 59-year-old patient, who comes to us with left foot gangrene. Bertha ent has history of peripheral vascular disease with previous amputations of the opposite side at the end of last year. The benefits, alternatives, and risks of left below-knee amputation were full expl ained to the patient and family, which include, but are not limited to infection, bleeding, damage to adjacent structures, anesthesia complications, flap failure, CT, and even . She also understan ds this may not relieve any symptoms. She might need more than one surgical intervention and she barney ht need higher amputation. She understood and signed a consent. Description Of Procedure: Patient was brought to the operating room and placed in supine position. Anesthesia was done without complication. A time-out was called. Left leg was prepped and draped in a sterile fashion. Anterior and posterior skin incisions were outlined with a marking pen. The ant erior skin incision was made about 4 fingerbreadths above the tibial tuberosity and extended medially and laterally to the delineation of the gastrocnemius muscle. The skin extension was placed all the way down to about 15 cm creating a posterior flap. The skin and subcutaneous tissue were carefully done with a knife. Saphenous veins were identified and isolated and ligated. The fascia and the mus lashawn were divided with Bovie cauterizer at the same level of the anterior skin incision. The muscles of the anterior and lateral compartments were carefully divided using a silk to tie the anterior tibi al vessels. The bone was carefully incised and with the periosteal elevator we proceeded to strip down proximal about 2 cm. The tibia was transected using Gigli saw proximal to the skin inc ision and bevel in the anterior area. The fibula was then exposed, dissected circumferentially, and transected with a bone cutter about 2 cm proximal to the tibia. The amputation was then completed wi th the Bovie cauterizer transecting the soleus muscle obliquely and the gastrocnemius muscle. The po sterior tibial and peroneal vessels were carefully ligated. The bony structure was carefully filed. The fascia of the anterior muscle flaps were identified, ARY drain was placed in the area through a d ifferent incision site and then the fascia of the anterior and posterior muscle flaps were approximat ed with silk. The skin was approximated with the help of 3-0 chromic and then shari. ARY connected to bulb suction and secured in place with 3-0 nylon. Excellent area of flap capillary refill. The area was covered with sterile dressings. Patient tolerated the procedure well. Patient was sent to recovery in stable condition. BERTO/RICHI Voice ID: [id number] Report ID: [id number]
[2019-10-01] MEDS ORDERED: Meropenem 1000 MG/VIAL IV SCH (09:00)
--- NOTE | 2019-10-01 09:09 | PN ---
Subjective: Status post left below-knee amputation. Patient doing well, awake, with no distress. Objective: Abdomen: Soft and depressible. Extremities: Intact surgical site. ARY drain minimal. Laboratory Data: WBC count is 17.4, hemoglobin of 9. Plan: Leave the dressings intact. Monitor ARY output. Continue on antibiotics. Follow with the nalini stark doctor. BERTO/RICHI Voice ID: [id number] Report ID: [id number]
[2019-10-01] MEDS: MORPHINE 2 MG/ML SYR IV PRN ×4 (09:37→21:53)
[2019-10-01] MEDS: Meropenem 1,000 MG in NA CHLORIDE 0.9% 100 ML IV SCH ×2 (09:55→16:00)
--- NOTE | 2019-10-01 11:07 | RAD REPORT ---
EXAM DESCRIPTION: CHEST, ONE VIEW XR CLINICAL HISTORY: PICC Placement COMPARISON: 07/22/2019 TECHNIQUE: AP Chest. FINDINGS: Right subclavian PICC line is in the right atrium. Heart is normal in size. Normal cardiomediastinal contours. Mild left lower lobe atelectasis. No cons olidation or edema. Pleural spaces are clear. Unremarkable bones and soft tissues. IMPRESSION: 1. Right subclavian PICC line placed without complication. Electronically signed by: Alvina Judd DO 10/01/2019 5:23 AM MINING DETAIL DRAFTSPERSON Due to temporary technical issues with the PACS/Fluency reporting system, reports are being signed by the in house radiologist as a courtesy to ensure prompt reporting. The interpreting radiologist is f ully responsible for the content of the report.
--- NOTE | 2019-10-01 14:40 | CON ---
History Of Present Illness: Patient was not seen last time because the patient was in OR for surgica l amputation of her leg. Patient is a 59-year-old female with significant history of stroke with aph elena, hypertension, diabetes mellitus, dysphagia, and PEG tube placement, coming in with left foot ne crotic ulceration. Patient had a BKA done to the right side also. Patient's white blood cell count was 14,000 on admission. Past Medical History: As per HPI. Social History: Nonsmoker, nondrinker. Family History: Noncontributory. Past Surgical History: PEG tube placement and hysterectomy. Medications: Meropenem and vancomycin. Review of Systems: Unable to obtain. Physical Examination: General: This is a 59-year-old female, lying in bed, not in any acute cardiopulmonary distress. Vital Signs: Temperature 97.4, pulse 95, respirations 16, blood pressure 121/61. HEENT: Unremarkable. Neck: Supple. Lungs: Clear to auscultation. Heart: S1, S2. Regular. Abdomen: Soft, nontender. Bowel sounds present. Extremities: BKA wound under surgical dressing. Laboratory Data: Shows WBC 13.8, hemoglobin 8, platelets 365. Chemistry shows sodium 140, potassium 3.9, chloride 108, bicarb 27, BUN 23, creatinine 0.6, glucose is 160. Micro data shows enterobacter , E coli, ESBL, and MRSA from the left foot wound, which has been amputated to BKA. Assessment And Plan: A 59-year-old female with significant history of diabetes mellitus and stroke, coming in with left diabetic foot ulcer and osteomyelitis with multidrug resistant bacterial growth a nd methicillin-resistant Staphylococcus aureus and Escherichia coli, extended-spectrum beta-lactamase , and enterobacter, which has been amputated. We will recommend to continue antibiotic for 3-4 weeks depending on the patient's wound at the below-knee amputation site. We will follow the patient clos rebeca. Thank you, Dr. Marroquin, for consult. SULY/RICHI Voice ID: [id number] Report ID: [id number]
[2019-10-01] MEDS ORDERED: INFLUENZA VACCINE (for 3y+) 0.5 ML DOSE IMVAC ONE (17:00)
[2019-10-01] MEDS: VANCOMYCIN/NS 1 gm 1 GM/250 ML BAG IVPB SCH (17:58)
--- NOTE | 2019-10-01 20:23 | PN ---
Date of Progress Note: 10/01/2019 Subjective: Patient seen and examined. Chart reviewed and case discussed with RN and Dr. Johnson and Dr. Gallegos. Patient is doing well postoperatively. Still complaining of some pain. Medications: List reviewed. Physical Examination: Vital Signs: Temperature 97.4, heart rate 95, blood pressure 121/61, respirations 16, O2 96% on room air. General: Awake, alert, ill-appearing female, in some mild distress due to pain. CV: S1, S2. Regular rate and rhythm. Respiratory: Moving air well bilaterally. No wheezing. Gastrointestinal: Abdomen is soft, nontender, nondistended. Positive bowel sounds. Extremities: Bilateral BKA. Skin: Left incision site is clean, dry, intact. No drainage from the bandage. Neurologic: Patient has aphasia and lower extremity contractures. Laboratory Data: Sodium 140, potassium 3.9, chloride 108, CO2 of 27, BUN 23, creatinine 0.6, glucose 160, calcium 8.4. WBC 13.8, hemoglobin and hematocrit 8 and 24.4, platelets 365, neutrophils 80%. Wound culture from the left foot growing out Enterobacter cloacae, E coli, ESBL producing, and MRSA. Chest x-ray after PICC line placement shows right subclavian PICC line without complication. Mild l eft lower lobe atelectasis. No edema. Assessment And Plan: A 59-year-old female with: 1.Acute left lower extremity diabetic foot wound with osteomyelitis, status post left [id number] utation, postoperative day #[address] Gallegos. Continue IV antibiotics. Cultures are growing multip le organisms including enterobacter, Escherichia coli, extended-spectrum beta-lactamase producing, an d methicillin-resistant Staphylococcus aureus. We will continue with the contact isolation. We will switch cefepime to meropenem due to extended-spectrum beta-lactamase Escherichia coli. Continue van comycin. Appreciate ID input. 2.Cellulitis of the left lower extremity, status post [id number] with positive wound cult ures. Patient will need long-term IV antibiotics for 2 to 3 weeks. PICC line has been placed today. We will set up with IV antibiotics. Patient will be on meropenem 1 g q.8 hours for 3 weeks and van comycin 1 g daily for 3 weeks. She will need weekly CBC, CMP, ESR, and CRP. She will need a PICC li la care and repeat cultures. 3.History of cerebrovascular accident with aphasia. 4.Dysphagia, status post percutaneous endoscopic gastrostomy tube placement. Continue with tube fee ds. 5.Diabetes mellitus type 2 with long-term use of insulin with circulatory complications. Continue w ith sliding scale insulin and monitor blood glucose levels. 6.Sacral decubitus ulcer, present on admission. We will continue offloading and local wound care. 7.Mixed hyperlipidemia. Continue statin. 8.Diabetic neuropathy. 9.Atelectasis. We will place on incentive spirometry. 10.Essential hypertension, stable. 11.Deep venous thrombosis prophylaxis with Lovenox. Plan: Patient will need placement for wound care and IV antibiotics. /RICHI Voice ID: [id number] Report ID: [id number]
[2019-10-01] MEDS: ATORVASTATIN 20 MG TAB FT SCH (21:54)
[2019-10-02] MEDS: Meropenem 1,000 MG in NA CHLORIDE 0.9% 100 ML IV SCH ×3 (00:16→17:25)
[2019-10-02 04:50] LABS: Absolute Lymphocytes (CBC) 1.2 K/uL (0.7-4.9); Basophils % 0.7 % (0-1.3); Hematocrit 23.8 % (36.0-45.0); MPV 7.9 fL (7.6-11.3); RBC Red Blood Cell Count 2.89 M/uL (3.86-4.86)
[2019-10-02 05:02] LABS: ALT/SGPT 38 U/L (12-78); AST/SGOT 18 U/L (15-37); Albumin 1.8 g/dL (3.4-5.0); Alkaline Phosphatase 109 U/L (45-117); BUN Blood Urea Nitrogen 23 mg/dL (7-18); Bicarbonate 29 mmol/L (21-32); Bilirubin Total 0.3 mg/dL (0.2-1.0); Glucose Level 149 mg/dL (74-106); Protein, Total 6.4 g/dL (6.4-8.2); Sodium Level 141 mmol/L (136-145)
[2019-10-02] MEDS: MORPHINE 2 MG/ML SYR IV PRN ×4 (06:20→20:58)
[2019-10-02 07:18] LABS: Blood Morphology Comment NOT SEEN (NOT SEEN); Platelet Estimate ADEQ; Urine White Blood Cell Casts OK
[2019-10-02] MEDS: INSULIN -REGULAR HUMAN 50 UNIT/0.5 ML ML SQ SCH ×4 (07:30→20:36)
[2019-10-02] MEDS: lisinopriL 20 MG TAB FT SCH (09:49)
[2019-10-02] MEDS: HYDRALAZINE HCL 25 MG TABLET FT SCH ×2 (09:49→20:35)
[2019-10-02] MEDS: GLUCERNA 1.5 CAL 1,000 ML BOT FT SCH ×4 (09:51→20:37)
--- NOTE | 2019-10-02 14:06 | PN ---
Date of Progress Note: 10/02/2019 History: Patient seen and examined. Chart reviewed and case discussed with RN. Daughter at the bed side. Treatment plan explained, all questions answered. Medications: List reviewed. Physical Examination: Vital Signs: Temperature 97, heart rate 101, blood pressure 126/62, respirations 18, O2 91% on room air. General: Awake and alert. Follows commands. No acute distress. CV: S1, S2. Sinus tachycardia. Peripheral pulses and radial pulses present. Respiratory: Moving air well bilaterally. No wheezing. Gastrointestinal: Abdomen is soft, nontender, nondistended. Positive bowel sounds. PEG tube in carmen ce. Extremities: Bilateral BKA. Skin: Left lower extremity incision site clean, dry, and intact. Bandaged. No drainage. Neuro: Patient is aphasic. Contractures of lower extremity. Laboratory Data: Sodium 141, potassium 4, chloride 108, CO2 29, BUN 23, creatinine 0.66, glucose 149 , calcium 8.5, albumin 1.8. WBC 16.9, H and H 7.8, 23.8, platelets 341, neutrophils 85%. Wound cult ures growing out Enterobacter, E coli, and MRSA. Blood cultures no growth to date. Assessment: A 59-year-old female with; 1.Acute left lower extremity diabetic foot wound with osteomyelitis, status post left below knee amp utation, postoperative day #3. Appreciate Dr. Gallegos's input. Cultures are growing out Proteus en terobacter E coli and MRSA. Patient's white blood cell count, however, trending up. Antibiotics wer e adjusted. Currently on meropenem and vancomycin. No fevers. We will monitor blood cultures for n ow. Appreciate Dr. Johnson's input. Patient will need 3 weeks of IV antibiotics. PICC line has been placed. 2.Cellulitis of the left lower extremity status post below knee amputation with positive wound cultu res. Continue antibiotics. 3.History of cerebrovascular accident with aphasia. 4.Dysphagia status post PEG tube placement. Continue with Glucerna feeds. 5.Diabetes mellitus type 2 with long-term use of insulin and circulatory complications. Continue wi th sliding scale insulin. Monitor Accu-Cheks. 6.Sacral decubitus ulcer, present on admission. Continue offloading. Local wound care. 7.Mixed hyperlipidemia. Continue statin. 8.Diabetic neuropathy, stable. 9.Atelectasis. Patient not really participating with incentive spirometry. 10.Essential hypertension, stable. DVT prophylaxis with Lovenox. Plan: manager diabetes and drug abuse social worker working on placement for long-term IV antibiotics and wound car annette OSEI/RICHI Voice ID: [id number] Report ID: [id number]
[2019-10-02 17:59] LABS: Hematocrit 23.4 % (36.0-45.0)
[2019-10-02] MEDS: VANCOMYCIN/NS 1 gm 1 GM/250 ML BAG IVPB SCH (18:08)
[2019-10-02] MEDS: ATORVASTATIN 20 MG TAB FT SCH (20:35)
[2019-10-03] MEDS: Meropenem 1,000 MG in NA CHLORIDE 0.9% 100 ML IV SCH ×3 (00:32→17:18)
[2019-10-03] MEDS: MORPHINE 2 MG/ML SYR IV PRN (03:05)
[2019-10-03 04:38] LABS: Absolute Lymphocytes (CBC) 1.3 K/uL (0.7-4.9); Basophils % 0.6 % (0-1.3); Hematocrit 24.2 % (36.0-45.0); Lymphocytes % 12.3 % (15.3-44.8); MPV 7.8 fL (7.6-11.3); RBC Red Blood Cell Count 2.95 M/uL (3.86-4.86)
[2019-10-03 05:05] LABS: ALT/SGPT 38 U/L (12-78); AST/SGOT 23 U/L (15-37); Albumin 1.8 g/dL (3.4-5.0); Alkaline Phosphatase 114 U/L (45-117); BUN Blood Urea Nitrogen 26 mg/dL (7-18); Bicarbonate 30 mmol/L (21-32); Bilirubin Total 0.2 mg/dL (0.2-1.0); Glucose Level 144 mg/dL (74-106); Potassium 3.9 mmol/L (3.5-5.1); Protein, Total 6.6 g/dL (6.4-8.2); Sodium Level 142 mmol/L (136-145)
[2019-10-03] MEDS: INSULIN -REGULAR HUMAN 50 UNIT/0.5 ML ML SQ SCH ×4 (07:30→20:52)
[2019-10-03] MEDS: lisinopriL 20 MG TAB FT SCH (10:07)
[2019-10-03] MEDS: HYDRALAZINE HCL 25 MG TABLET FT SCH ×2 (10:07→20:19)
[2019-10-03] MEDS: GLUCERNA 1.5 CAL 1,000 ML BOT FT SCH ×4 (10:08→20:20)
[2019-10-03] MEDS: TRAMADOL HCL 50 MG TAB FT PRN ×2 (10:16→20:19)
--- NOTE | 2019-10-03 12:14 | PN ---
Date of Progress Note: 10/03/2019 Subjective: Patient is seen and examined. Chart reviewed and case discussed with RN. Patient is do ing well. No acute events overnight. Medications: List reviewed. Physical Examination: Vital Signs: Temperature 97.2, heart rate 97, blood pressure 148/81, respirations 18, O2 of 98% on r oom air. General: Awake, alert, oriented, not in any acute distress. CV: S1, S2. Regular rate and rhythm. Respiratory: Moving air well bilaterally. Abdomen: Soft, nontender, nondistended. Positive bowel sounds. Extremities: No clubbing, cyanosis, edema. Skin: Left lower extremity BKA. Bandages in place. No drainage. Right BKA as well. Neuro: Patient is aphasic, has contractions. Laboratory Data: Sodium 142, potassium 3.9, chloride 108, CO2 of 30, BUN 26, creatinine 0.62, glucos e 144, calcium 8.5, albumin 1.8. WBC 10.9, H and H of 8 and 24.2, platelets 369, neutrophils 77%. W ound culture from the left foot growing out Enterobacter E coli ESBL producing an MRSA. Blood cultur es are negative. Assessment And Plan: A 59-year-old female with: 1.Acute left lower extremity diabetic foot wound with osteo, status post left below knee amputation, postoperative day #4, doing well. Bandage change on Friday per Dr. Gallegos. Cultures are positive for extended-spectrum beta-lactamase E coli, methicillin-resistant Staphylococcus aureus, and Proteu s. White blood cell count now trending down and normalized. Continue with meropenem and vancomycin. Patient is afebrile. Blood cultures are also negative. Patient will need to be set up for IV anti biotics for minimum of 3 to [address] line in place. Appreciate ID input. 2.Cellulitis of the left lower extremity status post below knee amputation. Positive wound cultures . Continue antibiotics. 3.History of cerebrovascular accident with aphasia. 4.Dysphagia, status post PEG tube placement, tolerating her feeds. 5.Diabetes mellitus type 2 with long-term use of insulin with circulatory compromise and hyperglycem ia. We will continue Accu-Cheks and sliding scale insulin. 6.Sacral decubitus ulcer, present on admission, continue offloading. 7.Mixed hyperlipidemia. Continue statin. 8.Diabetic neuropathy, stable. 9.Atelectasis. Incentive spirometry as tolerated. 10.Essential hypertension, stable. 11.Deep vein thrombosis prophylaxis with Lovenox. Disposition: Discharged to facility once set up with IV antibiotics and wound care. /RICHI Voice ID: [id number] Report ID: [id number]
[2019-10-03] MEDS: VANCOMYCIN/NS 1 gm 1 GM/250 ML BAG IVPB SCH (17:56)
[2019-10-03] MEDS: ATORVASTATIN 20 MG TAB FT SCH (20:19)
[2019-10-04] MEDS: Meropenem 1,000 MG in NA CHLORIDE 0.9% 100 ML IV SCH ×3 (00:15→16:30)
[2019-10-04] MEDS: MORPHINE 2 MG/ML SYR IV PRN ×3 (02:12→12:53)
[2019-10-04 04:44] LABS: Absolute Lymphocytes (CBC) 1.5 K/uL (0.7-4.9); Basophils % 0.5 % (0-1.3); Hematocrit 23.7 % (36.0-45.0); Lymphocytes % 15.8 % (15.3-44.8); RBC Red Blood Cell Count 2.83 M/uL (3.86-4.86)
[2019-10-04 04:53] LABS: Albumin 1.8 g/dL (3.4-5.0); Bilirubin Total 0.2 mg/dL (0.2-1.0); Potassium 4.1 mmol/L (3.5-5.1); Protein, Total 6.6 g/dL (6.4-8.2)
[2019-10-04] MEDS: INSULIN -REGULAR HUMAN 50 UNIT/0.5 ML ML SQ SCH ×4 (07:30→20:24)
[2019-10-04] MEDS: lisinopriL 20 MG TAB FT SCH (08:55)
[2019-10-04] MEDS: HYDRALAZINE HCL 25 MG TABLET FT SCH ×2 (08:55→21:41)
[2019-10-04] MEDS: GLUCERNA 1.5 CAL 1,000 ML BOT FT SCH ×4 (08:56→21:41)
[2019-10-04] MEDS: TRAMADOL HCL 50 MG TAB FT PRN ×2 (08:58→21:44)
[2019-10-04] MEDS: VANCOMYCIN/NS 1 gm 1 GM/250 ML BAG IVPB SCH (17:56)
--- NOTE | 2019-10-04 18:35 | PN ---
Subjective: Patient is lying in bed. Denies any headache, nausea, vomiting, chest pain, abdominal p ain, constipation, or diarrhea. Objective: Vital Signs: Temperature 97, pulse 75, respirations 18, blood pressure 147/70. Lungs: Clear to auscultation. Heart: S1, S2. Regular. Abdomen: Soft, nontender. Bowel sounds present. Extremities: BKA wound noted. Laboratory Data: WBC 9.7, hemoglobin 7.9, platelets 358. Chemistry shows sodium 143, potassium 4.1, chloride 108, bicarb 32, BUN 30.7, glucose is 170. Micro Data: Enterococcus cloacae, E coli, ESBL, and MRSA. Currently being treated with meropenem an d vancomycin. Assessment/plan: Status post below-knee amputation. Patient is doing better. Continue current anti biotic and wound care. We will follow the patient closely. Consider long-term acute care. NF/MODL Voice ID: [id number] Report ID: [id number]
--- NOTE | 2019-10-04 19:14 | PN ---
Date of Progress Note: 10/04/2019 Subjective: Patient is seen and examined. Chart reviewed and case discussed with RN. No significan t complaints. Does report some pain in her incision site. Daughter at the bedside. Treatment plan explained and all questions answered. Medications: List reviewed. Physical Examination: Vital Signs: Temperature 98.1, heart rate 106, blood pressure 124/83, respirations 20, O2 95% on feli m air. General: Awake, alert, does not appear to be any acute distress. CV: S1, S2. Regular rate and rhythm. Peripheral pulses and radial pulses present. Respiratory: Moving air well bilaterally. No wheezing or stridor. Gastrointestinal: Abdomen is soft, nontender, nondistended. Positive bowel sounds. Extremities: Bilateral BKA. Left BKA incision site clean, dry, intact and bandaged. Neuro: Patient is aphasic. Contractures of the lower extremities. Laboratory Data: Sodium 143, potassium 4.1, chloride 108, CO2 of 32, BUN 32, creatinine 0.72, glucos e 170, calcium 8.7. WBC 9.7, H and H 7.9 and 23.7, platelets 350, neutrophils 73.5%. Wound cultures from the left leg growing enterobacter E coli ESBL producing and MRSA. Blood cultures, no growth to date. Assessment And Plan: A 59-year-old female with: 1.Acute left lower extremity diabetic foot wound with osteo, status post left below knee amputation, postoperative day #5. Patient has had drop in her hemoglobin. Wound bandage changed today. We kennedy l monitor for signs of bleeding. Cultures positive for extended-spectrum beta-lactamase Escherichia coli, methicillin-resistant Staphylococcus aureus, and Proteus. We will continue with broad-spectrum IV antibiotics. Blood cultures negative to date. We will need IV antibiotics for 3 to 4 weeks. PI CC line is in place. 2.Cellulitis of the left lower extremity status post below-knee amputation. Positive wound cultures . Continue antibiotics for now. 3.History of cerebrovascular accident with aphasia. 4.Dysphagia, status post PEG tube placement, tolerating feeds. 5.Diabetes mellitus type 2 with long-term use of insulin with circulatory compromise and hyperglycem ia. Continue Accu-Cheks. Continue sliding scale insulin, stable. 6.Sacral decubitus ulcer, present on admission, continue offloading. 7.Mixed hyperlipidemia, continue statin. 8.Diabetic neuropathy, stable. 9.Atelectasis. Continue incentive spirometry. 10.Essential hypertension, stable. 11.Deep venous thrombosis prophylaxis with Lovenox. 12.Disposition. [facility]charged to [facility] once accepted for long-term IV antibiotic use and wound care. Follow up with fecal occult blood. Monitor H and H closely. May need transfusion if hemoglob in less than 7. 13.Acute blood loss anemia. Monitor H and H. SA/MODL Voice ID: [id number] Report ID: [id number]
[2019-10-04] MEDS: ATORVASTATIN 20 MG TAB FT SCH (21:40)
[2019-10-05] MEDS: Meropenem 1,000 MG in NA CHLORIDE 0.9% 100 ML IV SCH ×3 (01:48→16:27)
[2019-10-05 05:22] LABS: BUN Blood Urea Nitrogen 30 mg/dL (7-18); Bicarbonate 33 mmol/L (21-32); Glucose Level 129 mg/dL (74-106); Potassium 4.1 mmol/L (3.5-5.1); Sodium Level 142 mmol/L (136-145)
[2019-10-05 06:03] LABS: Absolute Lymphocytes (CBC) 1.8 K/uL (0.7-4.9); Basophils % 1.1 % (0-1.3); Hematocrit 24.8 % (36.0-45.0); Lymphocytes % 22.3 % (15.3-44.8); MPV 7.8 fL (7.6-11.3); RBC Red Blood Cell Count 3.01 M/uL (3.86-4.86)
[2019-10-05] MEDS: INSULIN -REGULAR HUMAN 50 UNIT/0.5 ML ML SQ SCH ×3 (07:30→15:53)
[2019-10-05] MEDS: TRAMADOL HCL 50 MG TAB FT PRN ×2 (07:55→12:28)
[2019-10-05] MEDS: lisinopriL 20 MG TAB FT SCH (07:56)
[2019-10-05] MEDS: HYDRALAZINE HCL 25 MG TABLET FT SCH (07:56)
[2019-10-05] MEDS ORDERED: SOD FERRIC GLUC COMPLX/SUCROSE 125 MG in NA CHLORIDE 0.9% 100 ML IV SCH (09:00)
[2019-10-05] MEDS: MORPHINE 2 MG/ML SYR IV PRN ×2 (09:40→14:22)
[2019-10-05] MEDS: GLUCERNA 1.5 CAL 1,000 ML BOT FT SCH ×3 (09:41→16:30)
--- NOTE | 2019-10-05 10:11 | P.PN ---
Subjective Date of Service: 10/04/19 Subjective: Tolerating diet, Improving Review of Systems 10-point ROS is otherwise unremarkable Physical Examination - Vital Signs Temperature: 97 F Blood Pressure: 165/72 Pulse: 95 Respirations: 18 Pulse Ox (%): 96 - Physical Exam General: Alert, In no apparent distress, Cooperative HEENT: PERRLA Neck: Supple Cardiovascular: No edema Gastrointestinal: Soft and benign Musculoskeletal: No erythema, No tenderness, No warmth, Other (Ary minimal) Integumentary: No erythema, No warmth, No cyanosis (Flaps intact , 100%) Assessment And Plan - Plan Cont medical care F/u at [facility] after discharge cont ARY monitoring Off loading
[2019-10-05 15:45] VITALS: O2SAT 94
[2019-10-05 17:12] VITALS: BP 128/64; TEMP 97.1
--- NOTE | 2019-10-05 17:31 | P.DS ---
Admission Date: 09/28/19 Discharge Date: 10/05/19 Disposition: DC HOME/HOME HEALTH CARE Discharge Condition: FAIR Consultations: General Surgery-Dr. Gallegos - Problems (1) Diabetic foot ulcer with osteomyelitis Current Visit: Yes Status: Acute (2) Diabetes Current Visit: No Status: Acute Qualifiers: Diabetes mellitus type: type 2 Diabetes mellitus irish moss gatherer insulin use: without nursing home use Diabetes mellitus complication status: with circulatory complication Diabetes mellitus complication detail: with peripheral angiopathy without gangrene Qualified Code(s): E11.51 - Type 2 diabetes mellitus with diabetic peripheral angiopathy without gangrene (3) History of CVA with residual deficit Current Visit: No Status: Chronic (4) PEG (percutaneous endoscopic gastrostomy) status Current Visit: No Status: Chronic Brief History of Present Illness: 59-year-old woman with a history of CVA with residual aphasia, history of diabetes mellitus, history of peripheral vascular disease, history of diabetic foot ulcer with chronic infections and osteomyelitis status post right BKA was brought to the emergency department due to worsening left lower extremity wound. The patient has been hospitalized multiple times and the wounds debrided multiple times. The wound has no responded to multiple antibiotic therapy. Her x-ray in the ED reported osteomyelitis. Patient was hospitalized for further management. Hospital Course: Patient was treated with multiple antibiotics including your opinion, cefepime and vancomycin. She was evaluated by Dr. Gallegos general surgery and Dr. Johnson-infectious disease. Patient underwent a left BKA.. She was kept on IV antibiotics for a couple of days. Wound drainage was removed today. Patient deemed clinically stable for discharge per Dr. Gallegos. Follow [facility] for dressing is recommended. Case discussed with Dr. Johnson and no need to continue IV antibiotics. Oral doxycycline was recommended. Patient is discharged to resume home health. Vital Signs/Physical Exam: Temp Pulse Resp BP Pulse Ox 97.1 F 92 H 16 128/64 96 10/05/19 16:00 10/05/19 16:00 10/05/19 16:00 10/05/19 16:00 10/05/19 16:00 General: In no apparent distress HEENT: Mucous membr. moist/pink Neck: Supple, JVD not distended Respiratory: Clear to auscultation bilaterally, Normal air movement Cardiovascular: No edema Gastrointestinal: Normal bowel sounds, Soft and benign, Non-distended Musculoskeletal: Other (Bilateral BKA.) Integumentary: Other (Left BKA wound looks clean. No discharge.) Laboratory Data at Discharge: WBC 8.2 K/uL (4.3-10.9) D 10/05/19 05:40 Hgb 8.2 g/dL (12.0-15.0) L 10/05/19 05:40 Hct 24.8 % (36.0-45.0) L 10/05/19 05:40 Plt Count 347 K/uL (152-406) 10/05/19 05:40 PT 13.0 SECONDS (9.5-12.5) H 09/28/19 12:45 INR 1.11 09/28/19 12:45 APTT 28.5 SECONDS (24.3-36.9) 09/28/19 12:45 Sodium 142 mmol/L (136-145) 10/05/19 04:30 Potassium 4.1 mmol/L (3.5-5.1) 10/05/19 04:30 BUN 30 mg/dL (7-18) H 10/05/19 04:30 Creatinine 0.64 mg/dL (0.55-1.3) 10/05/19 04:30 Glucose 129 mg/dL (74-106) H 10/05/19 04:30 Total Bilirubin 0.2 mg/dL (0.2-1.0) 10/04/19 04:17 AST 30 U/L (15-37) 10/04/19 04:17 ALT 44 U/L (12-78) 10/04/19 04:17 Alkaline Phosphatase 123 U/L (45-117) H 10/04/19 04:17 Home Medications: Glucerna 1.5 Vikas 237 ml FT QID #90 bot 02/10/18 Atorvastatin Calcium [Lipitor*] 20 mg FT BEDTIME #30 tab 11/14/18 traMADol HCL [Ultram*] 50 mg FT TID PRN #15 tab 11/14/18 Hydralazine [Apresoline*] 25 mg FT BID 07/14/19 Metformin HCl 500 mg FT BID 07/14/19 lisinopriL [Prinivil*] 40 mg FT DAILY 07/14/19 Doxycycline Hyclate 100 mg PO BID #20 tablet 10/05/19 Glucerna 1.5 Vikas 237 ml FT QID #60 bot 10/05/19 New Medications: Doxycycline Hyclate 100 mg PO BID #20 tablet Glucerna 1.5 Vikas 237 ml FT QID #60 bot Diet: ADA Activity: Non-weight bearing Followup: Gold Gallegos MD [Primary Care Provider] - 1 Week Time spent managing pt's care (in minutes): 42
[2019-10-05] MEDS: VANCOMYCIN/NS 1 gm 1 GM/250 ML BAG IVPB SCH (17:41)
--- NOTE | 2019-10-05 20:49 | PN ---
Subjective: Patient lying in bed. Patient is unable to communicate. Keeps her eyes opened without any new complaints. Objective: Vital Signs: Temperature 98, pulse 78, respirations 16, blood pressure 184/77. Extremities: No new changes in examination. BKA wound looks without any erythematous changes in nany rounding area. [place] are in place. ARY drain in place. Laboratory Data: WBC 8.2, hemoglobin 8.2, platelets are 347. Chemistry shows sodium 142, potassium 4.1, chloride 107, bicarb 33, BUN 30, creatinine 0.6, glucose 139. Left foot MRSA, E coli, ESBL, enterobacter cloacae. As patient also already has BKA done, we will re move the patient from isolation. Assessment And Plan: Continue oral antibiotic treatment as planned, status post below-knee amputatio n for 7 more days. Remove ARY drain and continue monitoring for signs of infection at the below knee amputation site. Continue Xeroform on daily basis. We will follow the patient as needed. Follow up with the primary care and surgical team. NF/MODL Voice ID: [id number] Report ID: [id number]
== END 2019-10-05 21:05 | disposition home health service (06) | DRG 617 ==
LOC: ER 11:03 → ERHOLD 12:50 → 4TH 14:47
PROVIDERS: ADMIT Family Medicine; ATTEND Family Medicine
PROC: 0Y6J0Z1 Detachment at Left Lower Leg, High, Open Approach (ICD-10-PCS; principal; 2019-09-29 12:15)
PROC: 02HV33Z Insertion of Infusion Device into Superior Vena Cava, Percutaneous Approach (ICD-10-PCS; 2019-10-01)
DX: E11.69 Type 2 diabetes mellitus with other specified complication (principal); M86.9 Osteomyelitis, unspecified; Z16.12 Extended spectrum beta lactamase (ESBL) resistance; L03.116 Cellulitis of left lower limb; J98.11 Atelectasis; E11.52 Type 2 diabetes mellitus with diabetic peripheral angiopathy with gangrene; I96 Gangrene, not elsewhere classified; E11.621 Type 2 diabetes mellitus with foot ulcer; B96.89 Other specified bacterial agents as the cause of diseases classified elsewhere; B96.20 Unspecified Escherichia coli [E. coli] as the cause of diseases classified elsewhere; B95.62 Methicillin resistant Staphylococcus aureus infection as the cause of diseases classified elsewhere; I69.320 Aphasia following cerebral infarction; I69.391 Dysphagia following cerebral infarction; L89.151 Pressure ulcer of sacral region, stage 1; E78.2 Mixed hyperlipidemia; E11.40 Type 2 diabetes mellitus with diabetic neuropathy, unspecified; Z89.511 Acquired absence of right leg below knee; E11.65 Type 2 diabetes mellitus with hyperglycemia; Z93.1 Gastrostomy status; Z79.4 Long term (current) use of insulin
CPT/HCPCS: 36415; 71045; 80048; 80053; 80202; 82947; 83605; 84145; 85014; 85018; 85025; 85610; 85730; 87040; 87070; 87077; 87186; 87205; 88307; 88311; 94760; 96365; 97161; 99215; 99284; J0692; J2250; J2270; J2370; J2543; J2704; J2916; J3370; J7030; J7120

== ENCOUNTER 2020-03-28 12:41 | Emergency (ER) | payer MEDICAID ==
--- OUTSIDE RECORDS SUMMARY | 2020-03-28 14:04 | XMS REPORT | Continuity of Care Document ---
:1960 Author Organization [facility] Address [facility] [place] [address] Care Team Providers Name Role Phone Unavailable Unavailable Unavailable Problems Condition Condition Condition Status Onset Resolution Last Treating Co mments Source Name Details Category Date Date Treatment Clinician Date Hyperlipid Hyperlipid Problem Active [facility] - unspecifie unspecifie Me moria d d l hyperlipid hyperlipid Ou tpati emia type emia type ent Clinics Diabetes Diabetes Diagnosis Active [facility] - managed as managed as Me moria type 2 type 2 l Outpati ent Clinics CVA, old, CVA, old, Problem Active [facility] hemiparesi hemiparesi Marissa kes - s s Memoria l Outpati ent Clinics Essential Essential Problem Active [facility] hypertensi hypertensi Marissa kes - on on Memoria l Outpati ent Clinics Non-pressu Non-pressu Problem Active [facility] re chronic re chronic Marissa kes - ulcer of ulcer of Memori a other part other part l of right of right Outpat i foot with foot with ent unspecifie unspecifie Cl inics d severity d severity Osteomyeli Osteomyeli Diagnosis Active [facility] tis, tis, [facility] - unspecifie unspecifie Me moria d d l Outpati ent Clinics Type 2 Type [address] [facility] diabetes diabetes [facility] - mellitus mellitus Memori a with foot with foot l ulcer ulcer Outpati ent Clinics Other Other Problem Active [facility] specified specified Luke s - diabetes diabetes Memori a mellitus mellitus l with other with other Ou tpati specified specified ent complicati complicati Cl inics on on Non-pressu Non-pressu Problem Active [facility] re chronic re chronic Marissa kes - ulcer of ulcer of Memori a other part other part l of right of right Outpat i foot foot ent limited to limited to Cl inics breakdown breakdown of skin of skin CVA, old, CVA, old, Problem Active [facility] aphasia aphasia [facility] - [facility] l [facility] ent Clinics Diabetes Diabetes Problem Active [facility] mellitus mellitus 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 Medications Ordered Filled Start Stop Current Ordering Indication Dosage Frequency Signature Comments Components Source Medication Medication Date Date Medication? Clinician (SIG) Name Name Kinsey Brockph 2019- No Chris 5ml [facility] en en 02-25 Km [facility] - 00:00: 00:00 [facility] 00 :00 [facility] ent Clinics Lisinopril Lisinopril Yes Chris [address] [facility] Km [facility] - [facility] ent [facility] Lisinopril Lisinopril Yes Chris [address] [facility] Pantoprazol Pantoprazol Yes Chris [address] e Sodium e Sodium Km [facility] Metformin Metformin Yes Chris [address] [facility] HCl HCl Km with a [facility] - meal [facility] ent [facility] Tramadol Tramadol Yes Chris as [facility] HCl HCl [facility] Plavix Plavix Yes Chris 1 tablet [facility] Atorvastati Atorvastati Yes Chris TAKE [address] [facility] n Calcium n Calcium Km TABLET BY [facility] - MOUTH AT [facility] BEDTIME [facility] ent [facility] HydrALAZINE HydrALAZINE Yes Chris [address] [facility] HCl HCl Km with food [facility] Outpati ent Clinics Procedures This patient has no known procedures. Encounters Start End Encounter Admission Attending Care Care Encounter Source Date/Time Date/Time Type Type Clinicians Facility Department ID 2019-04-20 2019-04-20 [facility] [id number] [facility] 13:00:00 13:00:00 [facility] Medicine Outpati ent Clinics 2019-04-09 2019-04-09 [facility] [id number] [address] 10:46:00 10:46:00 [facility] Medicine Outpati ent Clinics 2019-03-17 2019-03-17 [facility] [id number] 11:16:00 11:16:00 [facility] Medicine Outpati ent Clinics 2019-03-09 2019-03-09 [facility] [id number] [address] 09:17:00 09:17:00 [facility] Medicine Outpati ent Clinics 2019-02-25 2019-02-25 [facility] [id number] 09[facility]30:00 09:30:00 [facility] Medicine Outpati ent Clinics 2019-01-22 2019-01-22 [facility] [id number] [address] 16:32:00 16:32:00 [facility] Medicine Outpati ent Clinics 2018-12-25 2018-12-25 [facility] [id number] [address] 16:16:00 16:16:00 [facility] Medicine Outpati ent Clinics 2018-12-11 2018-12-11 [facility] [id number] [address] 09:32:00 09:32:00 [facility] Medicine Outpati ent Clinics 2018-12-09 2018-12-09 [facility] [id number] 15:59:00 15:59:00 [facility] ent Clinics 2018-12-01 2018-12-01 Outpatient Jett Mari [id number] 16:57:00 16:57:00 t [facility] ent Clinics 2018-11-24 2018-11-24 Outpatient Jett Mari [id number] [facility] 14:15:00 14:15:00 [facility] ent Clinics Results This patient has no known results.
--- NOTE | 2020-03-28 14:56 | ER ---
Nurse's Notes [facility] Name: Juana Navarro Age: 59 yrs Sex: Female : 1960 Arrival Date: 03/28/2020 Time: 12:44 Bed 16 Private MD: Diagnosis: Feeding tube complication, hole in feeding tube Presentation: 03/28 12:45 Chief complaint: EMS states: Sent by PCP for problem w/ feeding tube, daughter reports ph that there is a hole in it, pt lives at home w/ family, BP elevated at 198/80 but pt did not take medications. Coronavirus screen: Patient denies a cough. Patient denies shortness of breath or difficulty breathing. Patient denies measured and/or subjective temperature greater than 100.4F prior to today's visit. Patient denies travel on a cruise ship or to a country the [facility] currently lists as an affected area. Patient denies contact with known and/or suspected case of COVID-19. Proceed with normal triage. Ebola Screen: No symptoms or risks identified at this time. Initial Sepsis Screen: Does the patient meet any 2 criteria? No. Patient's initial sepsis screen is negative. Does the patient have a suspected source of infection? No. Patient's initial sepsis screen is negative. Risk Assessment: Do you want to hurt yourself or someone else? Patient reports no desire to harm self or others. Onset of symptoms was March 28, 2020. 12:45 Method Of Arrival: EMS: [facility] 12:45 Acuity: DAVID 3 ph Triage Assessment: 12:55 General: Appears uncomfortable, slender, Behavior is cooperative. General: Appears in ks7 no apparent distress. . Pain: Denies pain. Historical: - Allergies: 12:49 No Known Allergies; ph - PMHx: 12:49 bed bound; CVA; Diabetes - NIDDM; G Tube; Hypertension; nonverbal; NPO, aspiration; ph - PSHx: 12:49 Toe amputations; bilateral BKA; ph - Immunization history:: Adult Immunizations unknown. - Family history:: not pertinent. - Social history:: Smoking status: Patient denies any tobacco usage or history of. - Hospitalizations: : No recent hospitalization is reported. Screenin:57 Abuse screen: Denies threats or abuse. Nutritional screening: G tube, tube feedings, . ks7 Tuberculosis screening: No symptoms or risk factors identified. Fall Risk No fall in past 12 months (0 pts). Secondary diagnosis (15 points) No IV (0 pts). Ambulatory Aid- None/Bed Rest/Nurse Assist (0 pts). Gait- Normal/Bed Rest/Wheelchair (0 pts) Mental Status- Oriented to own ability (0 pts). Total Cohen Fall Scale indicates No Risk (0-24 pts). Assessment: 12:57 General: BIBA: pt w/hx of stroke, Bilateral BKA, non verbal but able to nod yes/no ks7 comes in from home d/t clogged feeding tube. daughter reports tube clogged since yesterday. pt denies abd pain, comfortable with daughter in the room. . GI: Abdomen is flat, PEG tube in place, clamped. Bowel sounds present X 4 quads. diminished in left upper quadrant and left lower quadrant Patient currently denies abdominal pain. Vital Signs: 12:45 BP 196 / 81; Pulse 93; Resp 18; Pulse Ox 99% on R/A; ph 12:56 BP 196 / 81; Pulse 79; Resp 18; Temp 97.9(TE); Pulse Ox 99% on R/A; Pain 0/10; ks7 16:11 BP 177 / 69; Pulse 65; Resp 16; Temp 97.6(TE); Pulse Ox 99% ; Pain 0/10; ks7 12:45 pt did not take BP meds this morning ph ED Course: 12:44 Patient arrived in ED. ph 12:45 Francisco J Wolfe MD is Attending Physician. rn 12:48 Triage completed. ph 12:49 Arm band placed on Patient placed in an exam room, on a stretcher, on pulse oximetry. ph 12:55 Ewelina Martinez, POLLY is Primary Nurse. ks7 12:57 Patient has correct armband on for positive identification. Placed in gown. Bed in low ks7 position. Side rails up X2. Adult w/ patient. 12:57 No provider procedures requiring assistance completed. Patient did not have IV access ks7 during this emergency room visit. 14:32 Resting quietly. ks7 14:[address] Wolfe with replacement of G tube. d/t hole in existing tube, unable to ks7 deflate balloon to remove existing tube. Cleaned site. pink dry, no s/s of infection. new gauze dressing in place. also sealed hole with foam tape and tegaderm;. Administered Medications: No medications were administered Outcome: 14:55 Discharge ordered by . rn 16:11 Discharged to home via wheelchair, with family. ks7 16:11 Discharged to home 16:11 Condition: stable 16:11 Discharge instructions given to family, Instructed on discharge instructions, follow up and referral plans. Demonstrated understanding of instructions, follow-up care. 16:16 Patient left the ED. ks7 Signatures: Francisco J Wolfe MD MD rn Hall, Patricia, RN RN Ewelina Martinez RN RN [email or web address]
--- NOTE | 2020-03-28 14:56 | EDPHYS ---
Physician Documentation [facility] Name: Juana Navarro Age: 59 yrs Sex: Female : 1960 Arrival Date: 03/28/2020 Time: 12:44 Bed 16 Private MD: ED Physician Francisco J Wolfe HPI: 03/28 12:52 This 59 yrs old Female presents to ER via EMS with complaints of Problem With rn Feeding Tube. 12:52 Family called 911 because feeding tube has a hole in it, no trauma, taped it, + hx of rn CVA, is dependent on the tube for feeds, is atleast 2 years old, no fever, no other complaints. . Onset: The symptoms/episode began/occurred at an unknown time. Severity of symptoms: At their worst the symptoms were mild. The patient has not experienced similar symptoms in the past. The patient has not recently seen a physician. Historical: - Allergies: 12:49 No Known Allergies; ph - PMHx: 12:49 bed bound; CVA; Diabetes - NIDDM; G Tube; Hypertension; nonverbal; NPO, aspiration; ph - PSHx: 12:49 Toe amputations; bilateral BKA; ph - Immunization history:: Adult Immunizations unknown. - Family history:: not pertinent. - Social history:: Smoking status: Patient denies any tobacco usage or history of. - Hospitalizations: : No recent hospitalization is reported. ROS: 14:53 Constitutional: Negative for fever, chills, and weight loss, Cardiovascular: Negative rn for chest pain, palpitations, and edema, Respiratory: Negative for shortness of breath, cough, wheezing, and pleuritic chest pain, Abdomen/GI: Negative for abdominal pain, nausea, vomiting, diarrhea, and constipation. Exam: 12:52 Constitutional: This is a well developed, well nourished patient who is awake, alert, rn and in no acute distress. Abdomen/GI: + feeding tube in place, tape covering hole, tube is black and needs changing, stoma without erythema or drainage. Vital Signs: 12:45 BP 196 / 81; Pulse 93; Resp 18; Pulse Ox 99% on R/A; ph 12:56 BP 196 / 81; Pulse 79; Resp 18; Temp 97.9(TE); Pulse Ox 99% on R/A; Pain 0/10; ks7 16:11 BP 177 / 69; Pulse 65; Resp 16; Temp 97.6(TE); Pulse Ox 99% ; Pain 0/10; ks7 12:45 pt did not take BP meds this morning ph MDM: 12:45 Patient medically screened. rn 14:53 Data reviewed: vital signs, nurses notes, and as a result, I will discharge patient. rn Counseling: I had a detailed discussion with the patient and/or guardian regarding: the historical points, exam findings, and any diagnostic results supporting the discharge/admit diagnosis, the need for outpatient follow up, to return to the emergency department if symptoms worsen or persist or if there are any questions or concerns that arise at home. ED course: Attempted to replace feeding tube, unable to pull tube, assuming that there is a balloon given resistance when pulling, the port that would deflate would not pull. Hole in tube is subcentimeter, does need to be replaced soon, but able to feed with minimal leakage. Recommend f/u with surgeon who placed tube for replacement given difficulty removing old one here. . Administered Medications: No medications were administered Disposition: 03/28/20 14:55 Discharged to Home. Impression: Feeding tube complication, hole in feeding tube. - Condition is Stable. - Medication Reconciliation Form, Thank You Letter, Antibiotic Education, Prescription Opioid Use form. - Follow up: Private Physician; When: As needed; Reason: Recheck today's complaints, Re-evaluation by your physician. - Problem is new. - Symptoms are unchanged. Signatures: Francisco J Wolfe MD MD rn Hall, Patricia, RN RN ph Songcuan, Kathleen, RN RN ks7 Corrections: (The following items were deleted from the chart) 16:16 14:55 03/28/2020 14:55 Discharged to Home. Impression: Feeding tube complication, hole ks7 in feeding tube. Condition is Stable. Forms are Medication Reconciliation Form, Thank You Letter, Antibiotic Education, Prescription Opioid Use. Follow up: Private Physician; When: As needed; Reason: Recheck today's complaints, Re-evaluation by your physician. Problem is new. Symptoms are unchanged. rn
[2020-03-29 05:49] VITALS: O2SAT 99
[2020-03-29 05:52] VITALS: BP 177/69; TEMP 97.6
== END 2020-03-28 16:16 | disposition home or self-care (01) ==
LOC: ER 12:41
DX: K94.29 Other complications of gastrostomy (principal); I10 Essential (primary) hypertension; Z89.512 Acquired absence of left leg below knee; Z89.511 Acquired absence of right leg below knee
CPT/HCPCS: 99283

== ENCOUNTER 2020-04-13 19:16 | Observation (INO) | payer MEDICAID ==
--- OUTSIDE RECORDS SUMMARY | 2020-04-13 19:19 | XMS REPORT | Summary of Care ---
:1960 Author Organization [facility] Address [address] [place] [id number] Care Team Providers Name Role Phone Pcp, Does Not Have A Primary Care Provider Reason for Referral Radiology Services (STAT) Status Reason Specialty Diagnoses / Referred By Referred To Procedures Contact Contact New Request Diagnostic Diagnoses Feeding tube dysfunction, initial encounter Jessica Collins Radiology Procedures XR KUB R, EMNP 301 [facility] [id number] [place] [id number] MRI/CAT Scan (STAT) Status Reason Specialty Diagnoses / Referred By Referred To Procedures Contact Contact New Request Diagnostic Diagnoses Feeding tube dysfunction, initial encounter Jessica Collins Radiology Procedures CT ABDOMEN PELVIS W CONTRAST R, EMNP [address] [address] Reason for Visit Reason Comments Other feeding tube problem Auth/Cert Status Reason Specialty Diagnoses / Referred By Referred To Procedures Contact Contact Emergency Medicine Adc Em ergency Dept [address] [place] [address] Fax: Encounter Details Date Type Department Care Team Description 04/04/2020 Emergency ADC-Emergency Jessica Collins R, Feeding tu be Department EMNP dysfunction, initial 132 [employer] [facility] [address] owens 301 [facility] VD encounter (Primary Dx) [place] [address] [id number] [place] [address] [phone] Allergies No Known Allergiesdocumented as of this encounter (statuses as of 04/04/2020) Medications Medication Sig Dispensed Refills Start Date End Date Status PROZAC 20 MG ORAL CAP None Entered 0 Active MIRAPEX 0.25 MG ORAL None Entered 0 Active TAB PLAVIX 75 MG ORAL TAB 1 by mouth every 30 1 02/17/2007 Active day PRAMIPEXOLE 0.25 MG 1 Tab Oral once 1 month 2 11/07/2006 Suspended ORAL TAB daily Additional information ASPIRIN 325 MG ORAL TBEC 1 Tab Oral DAILY 1 month 2 11/08/19 07 Suspended Additional information CLOPIDOGREL 75 MG ORAL TAB 1 Tab Oral DAILY 1 month 2 2006 Suspended Additional information METFORMIN 500 MG ORAL TAB 1 Tab Oral BID MEALS 1 month 2 10/2006 Suspended Additional information ENALAPRIL MALEATE 10 MG ORAL TAB 1 Tab Oral DAILY 1 month 2 11/07/2006 Suspended Additional information FLUOXETINE 20 MG ORAL CAP 1 Cap Oral DAILY 1 month 2 007 Suspended Additional information FOLIC ACID 1 MG ORAL TAB 1 Tab Oral DAILY 1 month 2 11/08/19 07 Suspended Additional information PYRIDOXINE 50 MG ORAL TAB 1 Tab Oral DAILY 1 month 2 007 Suspended Additional information documented as of this encounter (statuses as of 04/04/2020) Active Problems Problem Noted Date Essential hypertension 11/05/2006 Overview: ICD10 Diagnosis Term Data Analyst Utility Urinary tract infection, site not specified 05/15/2006 Cerebral thrombosis 05/15/2006 Overview: ICD10 Diagnosis Term Data Analyst Utility Acute, but ill-defined, cerebrovascular disease 2005 Muscle weakness (generalized) 05/13/2006 documented as of this encounter (statuses as of 04/04/2020) Social History Tobacco Use Types Packs/Day Years Used Date Never Assessed Sex Assigned at Date Recorded Not on file Job Start Date Occupation Industry Not on file Not on file Not on file Travel History Travel Start Travel End No recent travel history available. COVID-19 Exposure Response Date Recorded In the last month, have you been in contact with No / Unsure 04/04/2020 10:57 AM CDT someone who was confirmed or suspected to have Coronavirus / COVID-19? documented as of this encounter Last Filed Vital Signs Vital Sign Reading Time Taken Comments Blood Pressure 139/67 04/04/2020 2:58 PM CDT Pulse 77 04/04/2020 2:58 PM CDT Temperature 37.3 C (99.1 F) 04/04/2020 2:58 PM CDT Respiratory Rate 20 04/04/2020 2:58 PM CDT Oxygen Saturation 98% 04/04/2020 2:58 PM CDT Inhaled Oxygen Concentration - - Weight 63.5 kg (140 lb) 04/04/2020 11:01 AM CDT Height - - Body Mass Index - - documented in this encounter Discharge Instructions InstructionsJessica Collins EMNP - 04/04/2020NO LIFE-THREATENING FINDINGS ON TODAY'S EXAM. SPECIAL INSTRUCTIONS: 1. Continue current care 2. See attached information FOLLOW-UP RECOMMENDATIONS: RECOMMEND FOLLOW-UP WITH A PRIMARY CARE PROVIDER OR SPECIALIST IN 2-5 DAYS, ESPECIALLY IF NO IMPROVEMENT IN SYMPTOMS. TO FOLLOW-UP WITHIN THE [facility], TRY THESE OPTIONS (CLINIC APPOINTMENTS AVAILABLE ON THRN-HR-SMTG BASIS): 1. SCHEDULE AN APPOINTMENT ONLINE AT WWW[facility] 2. OR CALL THE [facility]ESS [facility] AT OR 3. OR CALL YOUR [facility] PHYSICIAN'S OFFICE DIRECTLY IF YOU ARE ALREADY AN ESTABLISHED [facility] PATIENT. OR, YOU MAY FOLLOW-UP WITH A PROVIDER OF YOUR CHOICE, SUCH : 1. A PHYSICIAN OF YOUR CHOICE 2. [facility], . LOCATIONS IN [facility] 3. [facility], [address] [place] [address]; [phone] RETURN TO ER FOR WORSENING OF SYMPTOMS. AttachmentsThe following attachments cannot be sent through Care Everywhere. Feeding Tube Replacement (Croatian)Feeding Tube Care, Gastrostomy: Flushing (Croatian)Feeding Tube (Taking Medicine), Discharge Instructions (Croatian) documented in this encounter Plan of Treatment Health Maintenance Due Date Last Done Comments HEPATITIS C (HCV) SCREEN 1960 DTaP,Tdap,and Td Vaccines (1 - 1971 Tdap) Depression Screening 1972 PAP SMEAR 1981 Breast Cancer Screening 2000 (MAMMOGRAM) COLONOSCOPY 2010 Zoster Recombinant Vaccine 2010 (SHINGRIX) (1 of 2) INFLUENZA VACCINE (#1) 2020 PNEUMOCOCCAL 0-64 YEARS COMBINED Aged Out No longer eligible based on SERIES patient's age to complete this topic documented as of this encounter Procedures Procedure Name Priority Date/Time Associated Diagnosis Comme nts XR KUB STAT 04/04/2020 2:19 PM Feeding tube Results for this CDT dysfunction, initial procedu re are in encounter the results section. CT ABDOMEN PELVIS W STAT 04/04/2020 1:03 PM Feeding tube R esults for this CONTRAST CDT dysfunction, initial procedu re are in encounter the results section. CBC WITH DIFF STAT 04/04/2020 11:54 AM Feeding tube Results for this CDT dysfunction, initial procedu re are in encounter the results section. COMP. METABOLIC STAT 04/04/2020 11:54 AM Feeding tube Resul ts for this PANEL ([id number]) CDT dysfunction, initial proced ure are in encounter the results section. NOTICE OF PRIVACY Routine 04/04/2020 10:52 AM PRACTICES CDT documented in this encounter Results XR KUB (04/04/2020 2:19 PM CDT) Specimen Narrative Performed At HISTORY: Replaced G-tube. PACS/VR/DOSE FINDINGS: Portable AP supine view of abdomen obtained after contrast medium injected in the emergency room through t he replaced gastrostomy tube. Contrast medium is seen in the fundus an d body of the stomach with small small amount in the antrum. Contrast medium noted in the collecting system of both kidneys as well as in the moderately distended urinary blad emily. CONCLUSIONS: Gastrostomy tube appears to be in good position. Procedure Note [facility], Radiant Results Inft User - 2019 2:25 PM CDT HISTORY: Replaced G-tube. FINDINGS: Portable AP supine view of abd omen obtained after contrast medium injected in the emergency room through t he replaced gastrostomy tube. Contrast medium is seen in the fundus an d body of the stomach with small small amount in the antrum. Contrast medium noted in the collecting system of both kidneys as well as in the moderately distended urinary blad emily. CONCLUSIONS: Gastrostomy tube appears to be in good position. Performing Organization Address City/State/Zipcode Phone Number PACS/VR/DOSE CT ABDOMEN PELVIS W CONTRAST (04/04/2020 1:03 PM CDT) Specimen Narrative Performed At CT Abdomen and Pelvis with intravenous c ontrast. PACS/VR/DOSE CLINICAL HISTORY: Generalized abdominal pain. DOSE: Up-to-date CT equipment and radiation dose reduc tion techniques were employed. CTDIvol: 3.67 mGy. DLP: 189 mGy-cm. TECHNIQUE : Contiguous axial imaging fro m the level of the lung bases through the pubic symphysis were perform ed after the uncomplicated administration of Omnipaque contrast mat erial. Coronal and sagittal reconstructions were obtained. Auto mA and/or iterativ e reconstruction were used to reduce radiation dose. FINDINGS: Lower lungs: Minimal congestion/atelectatic changes in the left lower lung. No pleural effusion or pericardial effus ion. Liver, Gallbladder and Spleen: S/P nichol cystectomy. Mild generalized dilatation of biliary ducts noted, likely combination of patient's age and cholecystectomy. No focal enhancing lesions visualized in the liver or in the spleen. Peritoneum: No free air or free fluid. No lymphadenopathy. Pancreas and Adrenals: Unremarkable pa ncreas and adrenal glands. Kidneys and Ureters: No visible calculi in the renal collecting systems. No hydroureter or hydronephrosis. Vessels: Mild diffuse atherosclerosis. Retroperitoneum: No abnormal fluid or ly mphadenopathy. Bowel: Gastrostomy feeding tube is in go od position. Constipation noted with retained fecal material throughout the large bowel, more in the sigmoid colon. Bladder and Reproductive Organs: Moderately distended urinary bladder. S/P hysterectomy. Bones: Suspect bony erosions involving b oth right and left anterior inferior iliac spines and lateral cortex of proximal subtrochanteric portion of the right humeral shaft, dors al cortex of left femoral shaft. External moderate degenerative disc dise ase noted at L4-L5 and L5-S1. Soft tissues: Unremarkable. CONCLUSION: 1. No acute intra-abdominal or pelvic ab normalities detected. 2. Feeding gastrostomy tube appears to b e in good position. 3. S/P cholecystectomy and S/P hysterect anila. 4. Constipation. 5. Bony erosions are seen involving right and left ant erior inferior iliac spines as well as the right and left hum eral shaft, of unknown etiology. Whole body bone scan imaging suggested. Procedure Note [facility], Radiant Results Inft User - 2019 1:[address] Abdomen and Pelvis with intravenous contrast. CLINICAL HISTORY: Generalized abdominal pain. DOSE: Up-to-date CT equipment and radiat ion dose reduction techniques were employed. CTDIvol: 3.67 mGy. DLP: 189 mGy-cm. TECHNIQUE : Contiguous axial imaging fro m the level of the lung bases through the pubic symphysis were perform ed after the uncomplicated administration of Omnipaque contrast mat erial. Coronal and sagittal reconstructions were obtained. Auto mA a nd/or iterative reconstruction were used to reduce radiation dose. FINDINGS: Lower lungs: Minimal congestion/atelecta tic changes in the left lower lung. No pleural effusion or pericardial effus ion. Liver, Gallbladder and Spleen: S/P nichol cystectomy. Mild generalized dilatation of biliary ducts noted, likel y combination of patient's age and cholecystectomy. No focal enhancing lesi ons visualized in the liver or in the spleen. Peritoneum: No free air or free fluid. No lymphadenopathy. Pancreas and Adrenals: Unremarkable burrell creas and adrenal glands. Kidneys and Ureters: No visible calculi in the renal collecting systems. No hydroureter or hydronephrosis. Vessels: Mild diffuse atherosclerosis. Retroperitoneum: No abnormal fluid or ly mphadenopathy. Bowel: Gastrostomy feeding tube is in go od position. Constipation noted with retained fecal material throughout the large bowel, more in the sigmoid colon. Bladder and Reproductive Organs: Moderat rebeca distended urinary bladder. S/P hysterectomy. Bones: Suspect bony erosions involving b oth right and left anterior inferior iliac spines and lateral cortex of proximal subtrochanteric portion of the right humeral shaft, dors al cortex of left femoral shaft. External moderate degenerative disc dise ase noted at L4-L5 and L5-S1. Soft tissues: Unremarkable. CONCLUSION: 1. No acute intra-abdominal or pelvic ab normalities detected. 2. Feeding gastrostomy tube appears to b e in good position. 3. S/P cholecystectomy and S/P hysterect anila. 4. Constipation. 5. Bony erosions are seen involving righ t and left anterior inferior iliac spines as well as the right and left hum eral shaft, of unknown etiology. Whole body bone scan imaging suggested. Performing Organization Address City/State/Zipcode Phone Number PACS/VR/DOSE COMP. METABOLIC PANEL ([id number]) (04/04/2020 11:54 AM CDT) [facility] Sig nature NA 136 135 - 145 [facility] mmol/L [facility] K 4.2 3.5 - 5.0 [facility] mmol/L [facility]ITAL [facility] CL 102 98 - 108 mmol/L [facility] CO2 TOTAL 29 23 - 31 mmol/L [facility] AGAP 5 2 - 16 [facility] BUN 25 (H) 7 - 23 mg/dL [facility] GLUCOSE 99 70 - 110 mg/dL [facility] CREATININE 0.70 0.50 - 1.04 [facility] mg/dL [facility] TOTAL BILI 0.6 0.1 - 1.1 mg/dL [facility] CALCIUM 9.7 8.6 - 10.6 [facility] mg/dL [facility] T PROTEIN 7.8 6.3 - 8.2 g/dL [facility] ALBUMIN 3.9 3.5 - 5.0 g/dL [facility] ALK PHOS 77 34 - 122 U/L [facility] ALTv 10 5 - 35 U/L [facility] AST(SGOT) 24 13 - 40 U/L [facility] eGFR Calculation 85.6 mL/min/1.73m2 [facility] (Non-) [facility] eGFR Calculation 103.8 mL/min/1.73m2 [facility] () [facility] Specimen Blood - HAND, RIGHT Narrative Performed At Association of Glomerular Filtration Rate (GFR) [facility] and Staging of Kidney Disease* + + +- + | GFR (mL/min/1.73 m2) | With Kidney Damage | Without Kidney Damage + + +- + | >90 | Stage one | Normal + + +- + | 60-89 | Stage two | Decreased GFR + + +- + | 30-59 | Stage three | Stage three + + +- + | 15-29 | Stage four | Stage four + + +- + | <15 (or dialysis) | Stage five | Stage five + + +- + *Each stage assumes the associated GFR level has been in effect for at least three months. Stages 1 to 5, with or without kidney disease, indicate chronic kidney disease. Notes: Determination of stages one and two (with eGFR >59mL/min/1.73 m2) requires estimation of kidney damage for at least three months as defined by structural or functional abnormalities of the kidney, manifested by either: Pathological abnormalities or Markers of kidney damage (including abnormalities in the composition of the blood or urine or abnormalities in imaging tests). Performing Organization Address City/State/[place]cova Phone Number [facility] CLIA: [id number], [address] [place], [place] [address] CBC WITH DIFF (04/04/2020 11:54 AM CDT) [facility] WBC 8.03 4.30 - 11.10 [facility] 10*3/L [facility]ITAL [facility] RBC 4.72 3.93 - 5.25 [facility] 10*6/L [facility] HGB 13.7 11.6 - 15.0 g/dL [facility] HCT 42.9 35.7 - 45.2 % [facility] MCV 90.9 80.6 - 95.5 fL [facility] MCH 29.0 25.9 - 32.8 pg [facility] MCHC 31.9 31.6 - 35.1 g/dL [facility] RDW-SD 45.1 39.0 - 49.9 fL [facility] RDW-CV 13.4 12.0 - 15.5 % [facility] PLT 232 166 - 358 [facility] 10*3/L [facility] MPV 11.1 9.5 - 12.9 fL [facility] NRBC/100 WBC 0.0 0.0 - 10.0 /100 [facility] WBCs [facility] NRBC x10^3 <0.01 10*3/L [facility] GRAN MAT (NEUT) % 69.1 % [facility] IMM GRAN % 0.70 % [facility] LYMPH % 20.0 % [facility] MONO % 6.0 % [facility] EOS % 3.7 % [facility] BASO % 0.5 % [facility] GRAN MAT x10^3(ANC) 5.54 1.88 - 7.09 [facility] 10*3/uL HOSPITAL LAB[facility] IMM GRAN x10^3 0.06 0.00 - 0.06 [facility] 10*3/uL [facility]ITAL [facility] LYMPH x10^3 1.61 1.32 - 3.29 [facility] 10*3/uL [facility] MONO x10^3 0.48 0.33 - 0.92 [facility] 10*3/uL H[facility]ITAL [facility] EOS x10^3 0.30 0.03 - 0.39 [facility] 10*3/uL [facility] BASO x10^3 0.04 0.01 - 0.07 [facility] 10*3/uL [facility] Specimen Blood - HAND, RIGHT Performing Organization Address City/State/Zipcode Phone Number [facility] CLIA: [id number], [address] [place], [place] [address] documented in this encounter Visit Diagnoses Diagnosis Feeding tube dysfunction, initial encoun ter - Primary documented in this encounter Administered Medications Medication Order MAR Action Action Date Dose Rate Site iohexol (OMNIPAQUE 350 BULK-150 Given 04/04/2020 12:45 PM CDT 12 0 mL mL) injection 120 mL 120 mL, Intravenous, ONCE, 1 dose, 04/04/20 at 1315, Routine documented in this encounter Insurance Payer Benefit Plan / Subscriber ID Effective Phone Address T ype Group Dates JAROD OLIVERA xxxxxxxxx 2020-Carola [address] O BOX Medic [facility] [place] [id number] MANAGED MEDICAID [place] documented as of this encounter"
--- OUTSIDE RECORDS SUMMARY | 2020-04-13 19:19 | XMS REPORT | Continuity of Care Document ---
:1960 Author Organization [facility] t Address [facility] Pola Bernstein [address] [place] [address] Care Team Providers Name Role Phone Ellis Nieto Attending Clinician Problems Condition Condition Condition Status Onset Resolution [...] old, Problem Active [facility]ics Diabetes Diabetes Problem Active [facility] mellitus mellitus [facility] - due to due to Memoria underlying underlying l condition condition Outp ati [...] multiple multiple Memori a sites sites l [facility] ent Clinics 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 Medications Ordered Filled Start Stop Current Ordering Indication Dosage Frequency Signature Comments Components Source Medication Medication Date Date Medication? Clinician (SIG) Name Name Kinsye Euceda 2019- No Chris [facility]ml [facility] en en 02-25 Km [facility] - 00:00: 00:00 Memoria 00 :00 [facility] ent Clinics Lisinopril Lisinopril Yes Chris [address] [facility] Lisinopril Lisinopril Yes Chris [address] [facility] ent Clinics Pantoprazol Pantoprazol Yes Chris [address] [facility] e Sodium e [facility] Metformin Metformin Yes Chris [address] HCl HCl Km with a [facility] - meal [facility] ent [facility] Tramadol Tramadol Yes Chris as [facility] HCl HCl Km directed [facility] - [facility] ent [facility] Plavix Plavix Yes Chris 1 tablet [facility] Atorvastati Atorvastati Yes Chris TAKE [address] [facility] [facility] n Calcium n Calcium Km TABLET BY [facility] - MOUTH AT [facility] BEDTIME [facility] HydrALAZINE HydrALAZINE Yes Chris [address] HCl HCl Km with food kes - [facility] ent Clinics Procedures This patient has no known procedures. Encounters Start End Encounter Admission Attending Care Care Encounter Source Date/Time Date/Time Type Type Clinicians Facility Department ID 2020-04-04 2020-04-04 Emergency [facility] [id number] 11:03:02 15:12:00 Jessica Lyons [id number] [place] [id number] [place] [id number] 2019-04-20 2019-04-20 [place] [id number] 13:00:00 13:00:00 [facility] Medicine Outpati ent Clinics 2019-04-09 2019-04-09 [place] [facility] [place] [id number] 10:46:00 10:46:00 [facility] Medicine Outpati ent Clinics 2019-03-17 2019-03-17 [facility] [id number] 11:16:00 11:16:00 [facility] Medicine Medicine Outpati ent Clinics 2019-03-09 2019-03-09 [place] [id number] 09:17:00 09:17:00 [facility] Medicine Medicine Outpati ent Clinics 2019-02-25 2019-02-25 [place] [id number] 09[facility]30:00 09:30:00 [facility] Medicine Outpati ent Clinics 2019-01-22 2019-01-22 [place] [id number] 16:32:00 16:32:00 [facility] Medicine Outpati ent Clinics 2018-12-25 2018-12-25 [place] [id number] 16:16:00 16:16:00 t [facility] Outpati ent Clinics 2018-12-11 2018-12-11 [facility] [id number] 09:32:00 09:32:00 t [facility] Outpati ent Clinics 2018-12-09 2018-12-09 [place] [id number] 15:59:00 15:59:00 t [facility] Outpati ent Clinics 2018-12-01 2018-12-01 [place] [facility] [place] [id number] 16:57:00 16:57:00 t [facility] 2018-11-24 2018-11-24 [facility] [place] [id number] 14:15:00 14:15:00 [facility] Results This patient has no known results.
--- NOTE | 2020-04-13 21:03 | RAD REPORT ---
EXAM DESCRIPTION: RAD - ENTEROSTOMY TUBE CHECK W/CONTR - 04/13/2020 8:54 pm CLINICAL HISTORY: feeding tube malfunction Gastrostomy tube placement COMPARISON: Abdomen Pelvis W Contrast dated 07/04/2019 FINDINGS: Two plain radiographs of the abdomen are submitted pre and post gastrostomy tube contrast injection. No fluoroscopy performed. Contrast is seen in the stomach post injection, indicating expec viv location of the gastrostomy tube.
--- NOTE | 2020-04-13 21:54 | ER ---
Nurse's Notes [facility] Name: Juana Navarro Age: 59 yrs Sex: Female : 1960 Arrival Date: 04/13/2020 Time: 19:25 Bed 27 Private MD: Diagnosis: Dislodged Feeding Tube Presentation: 04/13 19:26 Chief complaint: EMS states: they were toned out for report of pt having pulled out her bb peg tube. Coronavirus screen: At this time, the client does not indicate any symptoms associated with coronavirus-19. Ebola Screen: No symptoms or risks identified at this time. Initial Sepsis Screen: Does the patient meet any 2 criteria? No. Patient's initial sepsis screen is negative. Does the patient have a suspected source of infection? No. Patient's initial sepsis screen is negative. Risk Assessment: Do you want to hurt yourself or someone else? Patient reports no desire to harm self or others. Onset of symptoms was April 13, 2020. 19:26 Method Of Arrival: EMS: [facility] 19:26 Acuity: DAVID 4 bb Triage Assessment: 19:30 General: Appears in no apparent distress. comfortable, Behavior is calm, flat, quiet, vc Patient has a history of CVA. Pain: Unable to use pain scale. Does not appear to understand pain scale. Patient does not speak. Historical: - Allergies: 19:28 No Known Allergies; bb - PMHx: 19:28 bed bound; CVA; Diabetes - NIDDM; G Tube; Hypertension; nonverbal; NPO, aspiration; bb - PSHx: 19:28 Toe amputations; bilateral BKA; bb - Immunization history:: Adult Immunizations unknown. - Social history:: Smoking status: unknown. Screenin:30 Abuse screen: Denies threats or abuse. Nutritional screening: No deficits noted. vc Nutritional screening: No deficits noted. Patient has a temporary peg tube placed.. Tuberculosis screening: No symptoms or risk factors identified. Fall Risk None identified. Assessment: 19:30 General: Appears in no apparent distress. uncomfortable, slender, Behavior is calm. vc Neuro: Level of Consciousness is awake, listless. 19:30 Pain: Unable to use pain scale. Patient chooses when she speaks, she has had a CVA in vc the past. Cardiovascular: Capillary refill < 3 seconds Patient's skin is warm and dry. Respiratory: Airway is patent Respiratory effort is even, unlabored, Respiratory pattern is regular, symmetrical. GI: No signs and/or symptoms were reported involving the gastrointestinal system. GI: No signs and/or symptoms were reported involving the gastrointestinal system. Patient pulled out peg tube, stoma has an odor, with blood leaking out of hole, no skin breakdown noted, hole has a flap of skin off to the side. : No signs and/or symptoms were reported regarding the genitourinary system. Patient wears brief. EENT: No signs and/or symptoms were reported regarding the EENT system. Derm: stoma for peg tube epi gastric region. Musculoskeletal: Patient able to lift right arm, severe weakness noted to bilateral legs and left arm. 20:30 Reassessment: Patient appears in no apparent distress at this time. Patient and/or vc family updated on plan of care and expected duration. Pain level reassessed. 21:30 Reassessment: Patient appears in no apparent distress at this time. Patient and/or vc family updated on plan of care and expected duration. Pain level reassessed. 22:30 Reassessment: Patient appears in no apparent distress at this time. Patient and/or vc family updated on plan of care and expected duration. Pain level reassessed. 23:00 Reassessment: Patient appears in no apparent distress at this time. Patient and/or vc family updated on plan of care and expected duration. Pain level reassessed. 04/14 00:00 Reassessment: report called to Ioana MATIAS for room 229. bb 00:00 Reassessment: Patient appears in no apparent distress at this time. Patient and/or vc family updated on plan of care and expected duration. Pain level reassessed. Gauze placed around catheter in abdomen. Reassessment: Patient appears in no apparent distress at this time. Patient and/or family updated on plan of care and expected duration. Pain level reassessed. Vital Signs: 04/13 19:26 Temp 98.6(O); bb 19:26 BP 162 / 78; Pulse 93; Resp 20; Temp 98.8; Pulse Ox 96% on R/A; Pain 0/10; ll1 19:30 BP 131 / 73; Pulse 88; Resp 27; Pulse Ox 95% on R/A; vc 20:30 BP 167 / 79; Pulse 97; Resp 23; Pulse Ox 99% on R/A; vc 21:30 BP 150 / 80; Pulse 86; Resp 27; Pulse Ox 99% on R/A; vc 22:30 BP 142 / 86; Pulse 89; Resp 22; Pulse Ox 99% on R/A; vc 23:00 BP 144 / 77; Pulse 83; Resp 20; Pulse Ox 98% on R/A; vc 04/14 00:00 BP 134 / 88; Pulse 79; Resp 26; Pulse Ox 97% on R/A; vc ED Course: 04/13 19:25 Patient arrived in ED. cf2 19:27 Triage completed. bb 19:28 Arm band placed on Patient placed in an exam room, on a stretcher, on pulse oximetry. bb 19:30 Patient has correct armband on for positive identification. Bed in low position. Call vc light in reach. Side rails up X2. Pulse ox on. NIBP on. 19:35 Tan Garvin MD is Attending Physician. [facility] 20:41 Harman Jewell RN is Primary Nurse. vc 21:49 PEG Tube Check w/contrast Sent. vc 21:53 Jose Miguel Woodson is Hospitalizing Provider. [facility] 22:00 Inserted saline lock: 20 gauge in right antecubital area, using aseptic technique. rr5 ,using aseptic technique. inserted by harman MATIAS Blood collected. 04/14 00:18 No provider procedures requiring assistance completed. Patient admitted, IV remains in vc place. Administered Medications: No medications were administered Intake: 04/13 22:39 diaoer changed rr5 Output: 22:39 Stool: 1 (Formed Stool) ; Total: 0ml. rr5 22:39 diaoer changed rr5 Outcome: 21:53 Decision to Hospitalize by Provider. [facility] 04/14 00:18 Patient left the ED. bb 00:18 Admitted to Med/surg accompanied by tech, via stretcher. vc 00:18 Condition: good 00:18 Instructed on the need for admit. Signatures: Iris Rain RN RN bb Ricky De Jesus RN RN rr5 Juanita Blunt cf2 Harman Jewell RN RN Chanell Crow RN RN ll1 Tan Garvin MD MD [facility]
--- NOTE | 2020-04-13 21:54 | EDPHYS ---
Physician Documentation [facility] Name: Juana Navarro Age: 59 yrs Sex: Female : 1960 Arrival Date: 04/13/2020 Time: 19:25 Bed 27 Private MD: ED Physician Tan Garvin HPI: 04/13 20:47 This 59 yrs old Female presents to ER via EMS with complaints of Problem With mh7 Feeding Tube. 20:47 Pulled out feeding tube. Onset: The symptoms/episode began/occurred today, time mh7 unknown. Severity of symptoms: At their worst the symptoms were moderate today, in the emergency department the symptoms are unchanged. Unable to obtain HPI due to baseline nonverbal. Patient with h/o CVA, bilateral BKA with feeding tube. Patient received her morning and noon feeds then family later discovered that tube had been pulled out so patient did not receive evening feed.. Historical: - Allergies: 19:28 No Known Allergies; bb - PMHx: 19:28 bed bound; CVA; Diabetes - NIDDM; G Tube; Hypertension; nonverbal; NPO, aspiration; bb - PSHx: 19:28 Toe amputations; bilateral BKA; bb - Immunization history:: Adult Immunizations unknown. - Social history:: Smoking status: unknown. ROS: 20:47 Unable to obtain ROS due to baseline nonverbal. mh7 Exam: 20:47 Constitutional: This is a well developed, well nourished patient who is awake, alert, mh7 and in no acute distress. Head/Face: Normocephalic, atraumatic. Neck: Trachea midline, no thyromegaly or masses palpated, and no cervical lymphadenopathy. Supple, full range of motion without nuchal rigidity, or vertebral point tenderness. No Meningismus. Chest/axilla: Normal chest wall appearance and motion. Nontender with no deformity. No lesions are appreciated. Cardiovascular: Regular rate and rhythm with a normal S1 and S2. No gallops, murmurs, or rubs. Normal PMI, no JVD. No pulse deficits. Respiratory: Lungs have equal breath sounds bilaterally, clear to auscultation and percussion. No rales, rhonchi or wheezes noted. No increased work of breathing, no retractions or nasal flaring. 20:47 Skin: Warm, dry with normal turgor. Normal color with no rashes, no lesions, and no evidence of cellulitis. 20:47 Abdomen/GI: Inspection: abdomen appears normal, feeding tube site intact, Bowel sounds: normal, in all quadrants, Palpation: nontender, Liver: no appreciated palpable abnormalities, Hernia: not appreciated. 20:47 Musculoskeletal/extremity: Extremities: noted in the bilateral BKA: 20:47 Neuro: Orientation: unable to test, baseline non verbal, Mentation: unable to test, baseline non verbal, Memory: unable to test, baseline nonverbal, Cranial nerves: unable to test, baseline nonverbal, Cerebellar function: unable to test, baseline nonverbal, Motor: unable to test, baseline nonverbal, Sensation: unable to test, baseline nonverbal, Gait: not tested. seizure activity, is not displayed by the patient, Abnormal movements: there are no abnormal movements. 20:47 Psych: Vital Signs: 19:26 Temp 98.6(O); bb 19:26 BP 162 / 78; Pulse 93; Resp 20; Temp 98.8; Pulse Ox 96% on R/A; Pain 0/10; ll1 19:30 BP 131 / 73; Pulse 88; Resp 27; Pulse Ox 95% on R/A; vc 20:30 BP 167 / 79; Pulse 97; Resp 23; Pulse Ox 99% on R/A; vc 21:30 BP 150 / 80; Pulse 86; Resp 27; Pulse Ox 99% on R/A; vc 22:30 BP 142 / 86; Pulse 89; Resp 22; Pulse Ox 99% on R/A; vc 23:00 BP 144 / 77; Pulse 83; Resp 20; Pulse Ox 98% on R/A; vc 0807 00:00 BP 134 / 88; Pulse 79; Resp 26; Pulse Ox 97% on R/A; vc Procedures: 04/13 21:51 Performed Catheter at feeding tube site. Placed 10 wolof Shah catheter at feeding mh7 tube site after cleaning and prep with Betadine. Patient tolerated well. No complications.. MDM: 19:47 Patient medically screened. [facility] 21:51 Differential Diagnosis Feeding Tube Malfunction, Dislodged Feeding Tube. Data reviewed: [facility] vital signs, nurses notes, EMS record, radiologic studies, plain films. Data interpreted: Pulse oximetry: on room air is 96 %. Interpretation: normal. Counseling: I had a detailed discussion with the patient and/or guardian regarding: the historical points, exam findings, and any diagnostic results supporting the discharge/admit diagnosis, radiology results, the need for further work-up and treatment in the hospital. Physician consultation: Larry Palacio MD regarding patient's condition, and will see patient in inpatient room, would like admission per Dr. Jose Miguel Woodson. 04/13 20:22 Order name: CBC with Diff 7 04/13 20:22 Order name: Basic Metabolic Panel 7 04/13 20:22 Order name: LFT's 7 04/13 20:22 Order name: Protime (+inr) 7 04/13 20:22 Order name: Ptt, Activated 7 04/13 22:21 Order name: CBC with Automated Diff EDMS 04/13 20:22 Order name: PEG Tube Check w/contrast 7 04/13 20:22 Order name: Saline Lock; Complete Time: 23:10 7 04/13 21:05 Order name: RAD; Complete Time: 21:36 EDMS 04/13 22:26 Order name: Protime (+INR) EDMS 04/13 22:26 Order name: PTT, Activated Partial Thromb EDMS 04/13 22:31 Order name: Basic Metabolic Panel EDMS 04/13 22:31 Order name: Liver (Hepatic) Function EDMS Administered Medications: No medications were administered Disposition: 04/14 05:35 Co-signature as Attending Physician, Tan Garvin MD. [facility] Disposition: 04/13/20 21:53 Hospitalization ordered by Jose Miguel Woodson for Observation. Preliminary diagnosis is Dislodged Feeding Tube. - Bed requested for Telemetry/MedSurg (observation). - Status is Observation. bb - Condition is Stable. - Problem is new. - Symptoms have improved. Signatures: Dispatcher [facility] EDMS Iris Rain RN RN bb Garcia, Cindy, RN RN cg Holmes, Maurice, MD MD [facility] Corrections: (The following items were deleted from the chart) 04/13 23:41 21:53 Hospitalization Ordered by Jose Miguel Woodson for Observation. Preliminary diagnosis cg is Dislodged Feeding Tube. Bed requested for Telemetry/MedSurg (observation). Status is Observation. Condition is Stable. Problem is new. Symptoms have improved. [facility] 04/14 00:18 04/13 23:41 04/13/2020 21:53 Hospitalization Ordered by Jose Miguel Woodson for Observation. bb Preliminary diagnosis is Dislodged Feeding Tube. Bed requested for Telemetry/MedSurg (observation). Status is Observation. Condition is Stable. Problem is new. Symptoms have improved.
[2020-04-13 22:14] LABS: Absolute Lymphocytes (CBC) 1.5 K/uL (0.7-4.9); Basophils % 0.7 % (0-1.3); Hematocrit 37.5 % (36.0-45.0); MPV 8.6 fL (7.6-11.3); RBC Red Blood Cell Count 4.25 M/uL (3.86-4.86)
[2020-04-13 22:25] LABS: Protime INR 0.96
[2020-04-13 22:30] LABS: ALT/SGPT 25 U/L (12-78); AST/SGOT 13 U/L (15-37); Albumin 2.9 g/dL (3.4-5.0); Alkaline Phosphatase 112 U/L (45-117); BUN Blood Urea Nitrogen 32 mg/dL (7-18); Bicarbonate 33 mmol/L (21-32); Bilirubin Direct < 0.1 mg/dL (0-0.2); Bilirubin Total 0.2 mg/dL (0.2-1.0); Glucose Level 172 mg/dL (74-106); Potassium 4.2 mmol/L (3.5-5.1); Protein, Total 7.5 g/dL (6.4-8.2); Sodium Level 145 mmol/L (136-145)
--- NOTE | 2020-04-13 23:30 | P.HP ---
Certification for Inpatient Patient admitted to: Observation With expected LOS: <2 Midnights Practitioner: I am a practitioner with admitting privileges, knowledge of patient current condition, hospital course, and medical plan of care. Services: Services provided to patient in accordance with Admission requirements found in Title 42 Section 412.3 of the Code of Federal Regulations Patient History Date of Service: 04/13/20 Reason for admission: Dislodged PEG tube History of Present Illness: 59-year-old woman well known to this service, history CVA, dysphagia on PEG tube feeding was brought to the emergency department due to dislodged PEG tube. Family denies any other complain.Dr. Pia DUPONT was contacted by the ED physician who recommended inserting Shah catheter into gastrostomy. Gastrografin study was performed which was unremarkable. Patient is hospitalized for PEG tube replacement. Allergies No Known Allergies Allergy (Verified 07/13/19 19:58) Home Medications: Glucerna 1.5 Vikas 237 ml FT QID #90 bot 02/10/18 Atorvastatin Calcium [Lipitor*] 20 mg FT BEDTIME #30 tab 11/14/18 traMADol HCL [Ultram*] 50 mg FT TID PRN #15 tab 11/14/18 Hydralazine [Apresoline*] 25 mg FT BID 07/14/19 Metformin HCl 500 mg FT BID 07/14/19 lisinopriL [Prinivil*] 40 mg FT DAILY 07/14/19 Doxycycline Hyclate 100 mg PO BID #20 tablet 10/05/19 Glucerna 1.5 Vikas 237 ml FT QID #60 bot 10/05/19 - Past Medical/Surgical History Diabetic: Yes -: Hx CVA with residual aphasia -: HTN -: Hyperlipidemia -: Neuropathy -: DM -: History of dysphagia now with PEG tube -: Hysterectomy -: PEG tube placement -: Amputation of right foot -: Amputation of first digit left toe Psychosocial/ Personal History: Patient lives at home. She has several children. She is . - Family History Mother -: Stroke Father -: Heart disease - Social History Alcohol use: No CD- Drugs: No Caffeine use: No Review of Systems is unable to be obtained (Due to aphasia) Physical Examination - Physical Exam General: In no apparent distress, Other (Awake) HEENT: Mucous membr. moist/pink Neck: Supple Respiratory: Clear to auscultation bilaterally, Normal air movement Cardiovascular: No edema Gastrointestinal: Normal bowel sounds, Soft and benign, Non-distended, Other (Came gastrostomy stoma.) Musculoskeletal: Contractures Neurological: Other (Contractures of both upper and lower extremities) - Studies Laboratory Data (last 24 hrs) 04/13/20 21:58: PT 11.3, INR 0.96, APTT 32.2 04/13/20 21:58: Sodium 145, Potassium 4.2, BUN 32 H, Creatinine 0.96, Glucose 172 H, Total Bilirubin 0.2, AST 13 L, ALT 25, Alkaline Phosphatase 112 04/13/20 21:58: WBC 7.9, Hgb 12.4, Hct 37.5, Plt Count 290 Assessment and Plan - Problems (Diagnosis) (1) Encounter for PEG (percutaneous endoscopic gastrostomy) Current Visit: Yes Status: Acute (2) Dysphagia Current Visit: No Status: Chronic Qualifiers: Dysphagia type: unspecified Qualified Code(s): R13.10 - Dysphagia, unspecified (3) Expressive aphasia Onset Date: 02/03/18 Current Visit: No Status: Chronic (4) Hypertension Onset Date: 02/03/18 Current Visit: No Status: Chronic Qualifiers: Hypertension type: essential hypertension Qualified Code(s): I10 - Essential (primary) hypertension - Plan Place under observation. GI consult for PEG tube replacement. Manage blood sugar with insulin sliding scale. Hold metformin. - Advance Directives Does patient have a Living Will: Yes Does patient have a Durable POA for Healthcare: No
[2020-04-14] MEDS ORDERED: NA CHLORIDE 0.9% 1,000 ML IV SCH (00:40)
[2020-04-14 04:36] LABS: Absolute Lymphocytes (CBC) 1.9 K/uL (0.7-4.9); Basophils % 0.7 % (0-1.3); Hematocrit 33.7 % (36.0-45.0); Lymphocytes % 25.9 % (15.3-44.8); RBC Red Blood Cell Count 3.79 M/uL (3.86-4.86)
[2020-04-14 04:44] LABS: Potassium 3.7 mmol/L (3.5-5.1)
[2020-04-14] MEDS: INSULIN -REGULAR HUMAN 50 UNIT/0.5 ML ML SQ SCH ×2 (07:30→11:24)
[2020-04-14 08:09] VITALS: BMI 39.7
[2020-04-14] MEDS ORDERED: HYDRALAZINE HCL 20 MG/ML VIAL IV PRN (08:25)
[2020-04-14] MEDS ORDERED: LABETALOL 20 MG/4ML SYRINGE IV SCH (09:00)
[2020-04-14] MEDS ORDERED: POTASSIUM CL SA 10 MEQ TAB PO ONE (09:00)
[2020-04-14 09:43] VITALS: O2SAT 98
[2020-04-14] MEDS ORDERED: LABETALOL 20 MG/4ML SYRINGE IV PRN (09:59)
[2020-04-14 12:35] VITALS: BP 124/59; TEMP 97.4
--- NOTE | 2020-04-14 14:45 | RAD REPORT ---
EXAM DESCRIPTION: RAD - ENTEROSTOMY TUBE CHECK W/CONTR - 04/14/2020 2:32 pm CLINICAL HISTORY: check peg tube placement, enterostomy tube placement or repositioning COMPARISON: ENTEROSTOMY TUBE CHECK W/CONTR dated 04/13/2020 FINDINGS: Two KUB images were obtained prior to and subsequent to retrograde injection through an in dwelling replaced or repositioned PEG tube. The injected contrast all remains within the lumen of the stomach with antegrade movement into small bowel. No extravasation confirmed. Contrast is present in the right-side of the colon presumed to be from a prior study. IMPRESSION: Enterostomy tube appears in good position. The injected contrast material remains within the lumen of the stomach and small bowel.
--- NOTE | 2020-04-14 15:07 | P.DS ---
Admission Date: 04/13/20 Discharge Date: 04/14/20 Disposition: ROUTINE DISCHARGE Discharge Condition: GOOD Reason for Admission: Dislodged PEG tube Hospital Course: Patient is a 59 year old female currently with a PEG for dysphagia after CVA who was admitted after her PEG tube was dislodged. She underwent PEG tube revision by GI and has been cleared for discharge. Her hospital course was uneventful. Vital Signs/Physical Exam: Temp Pulse Resp BP Pulse Ox 97.4 F 97 H 16 124/59 L 93 04/14/20 12:00 04/14/20 12:00 04/14/20 12:00 04/14/20 12:00 04/14/20 12:00 General: In no apparent distress, Other (communicating non-verbally, following instructions) HEENT: Atraumatic, Normocephalic, EOMI Neck: Supple Respiratory: Clear to auscultation bilaterally, Normal air movement Cardiovascular: Normal pulses, Regular rate/rhythm, Normal S1 S2 Gastrointestinal: Soft and benign, Non-distended, No tenderness, Other (Shah catheter in place of PEG tube) Musculoskeletal: Clubbing, Contractures, Other (bilateral BKA) Neurological: Normal affect Laboratory Data at Discharge: WBC 7.3 K/uL (4.3-10.9) 04/14/20 03:43 Hgb 11.6 g/dL (12.0-15.0) L 04/14/20 03:43 Hct 33.7 % (36.0-45.0) L 04/14/20 03:43 Plt Count 293 K/uL (152-406) 04/14/20 03:43 PT 11.3 SECONDS (9.5-12.5) 04/13/20 21:58 INR 0.96 04/13/20 21:58 APTT 32.2 SECONDS (24.3-36.9) 04/13/20 21:58 Sodium 145 mmol/L (136-145) 04/14/20 03:43 Potassium 3.7 mmol/L (3.5-5.1) 04/14/20 03:43 BUN 31 mg/dL (7-18) H 04/14/20 03:43 Creatinine 0.81 mg/dL (0.55-1.3) 04/14/20 03:43 Glucose 121 mg/dL (74-106) H 04/14/20 03:43 Total Bilirubin 0.2 mg/dL (0.2-1.0) 04/13/20 21:58 AST 13 U/L (15-37) L 04/13/20 21:58 ALT 25 U/L (12-78) 04/13/20 21:58 Alkaline Phosphatase 112 U/L (45-117) 04/13/20 21:58 Home Medications: Glucerna 1.5 Vikas 237 ml FT QID #90 bot 02/10/18 Atorvastatin Calcium [Lipitor*] 20 mg FT BEDTIME #30 tab 11/14/18 traMADol HCL [Ultram*] 50 mg FT TID PRN #15 tab 11/14/18 Hydralazine [Apresoline*] 25 mg FT BID 07/14/19 Metformin HCl 500 mg FT BID 07/14/19 lisinopriL [Prinivil*] 40 mg FT DAILY 07/14/19
--- NOTE | 2020-05-18 11:10 | CON ---
Reason For Consultation: Dislodged PEG. History Of Presenting Illness: The patient is a 59-year-old woman with history of CVA, dysphagia, st atus post PEG, hypertension, dyslipidemia, neuropathy, diabetes, who was brought to the emergency feli because of a dislodged PEG. In the ER, they were able to insert a Shah catheter and do Gastrograf in study, which is normal. Allergies: NO KNOWN DRUG ALLERGIES. Home Medications: In the chart. Past Medical History: As above. Past Surgical History: Hysterectomy, history of PEG tube placement, amputation of right foot, amputa tion of first digit. Family History: Noncontributory. Social History: No toxic habits. Review of Systems: Unable to obtain. Physical Examination: HEENT: Head atraumatic, normocephalic. Pupils equally reactive. Neck: Supple. Chest: Clear to auscultation bilaterally. Abdomen: Soft, nontender, nondistended. Bowel sounds present. Extremities: No pedal edema, status post amputation as mentioned in history. Shah catheter seen at the site of old PEG, appears to be functioning. Laboratory Data: Reviewed. Normal hemoglobin, hematocrit. Normal coagulation profile. Impression: A 59-year-old woman with failure to thrive, dysphagia status post PEG, now presents with dislodged PEG tube, status post Shah insertion. Plan: We will replace the Shah catheter with the feeding tube. Shah catheter diameter is quite na rrow around 12 to 14, therefore I was able to replace with an appropriate sized balloon gastrostomy t ube. An 18-English tube was not able to pass, so we have taken a smaller size. After insertion we in jected 5 cc of fluid into the balloon. We will plan to get Gastrografin study, if normal we will pro ceed with feeding and the patient [facility]. If family wishes an in creased size of feeding tube that can be done as an outpatient basis. /RICHI Voice ID: [id number] Report ID: [id number]
== END 2020-04-14 16:00 | disposition home or self-care (01) ==
LOC: ER 19:16 → ERHOLD 23:36 → 2ND 04-14 00:02
PROVIDERS: ADMIT Internal Medicine; ATTEND Internal Medicine
DX: Z43.1 Encounter for attention to gastrostomy (principal); I69.991 Dysphagia following unspecified cerebrovascular disease; R13.10 Dysphagia, unspecified; I69.920 Aphasia following unspecified cerebrovascular disease; F80.1 Expressive language disorder; I10 Essential (primary) hypertension; E11.9 Type 2 diabetes mellitus without complications; E78.5 Hyperlipidemia, unspecified; G62.9 Polyneuropathy, unspecified; R62.7 Adult failure to thrive; Z68.39 Body mass index [BMI] 39.0-39.9, adult; Z74.01 Bed confinement status; Z89.431 Acquired absence of right foot; Z89.412 Acquired absence of left great toe; Z20.828 Contact with and (suspected) exposure to other viral communicable diseases; Z82.3 Family history of stroke; Z82.49 Family history of ischemic heart disease and other diseases of the circulatory system
CPT/HCPCS: 85025 ×2; 80048 ×2; 36415; 85610; 82947 ×2; 80076; 85730; 49465 ×2; 94760 ×2; 99285; U0002; J0360; J7030; G0378 ×2

== ENCOUNTER 2020-06-14 10:39 | Emergency (ER) | payer MEDICAID ==
[2020-06-14 11:39] LABS: Absolute Lymphocytes (CBC) 1.1 K/uL (0.7-4.9); Basophils % 0.6 % (0-1.3); Hematocrit 36.5 % (36.0-45.0); Lymphocytes % 10.8 % (15.3-44.8); MPV 8.5 fL (7.6-11.3); RBC Red Blood Cell Count 4.16 M/uL (3.86-4.86)
--- NOTE | 2020-06-14 11:50 | RAD REPORT ---
EXAM DESCRIPTION: Michel Single View06/14/2020 11:37 am CLINICAL HISTORY: Chest pain COMPARISON: September 2019 FINDINGS: Left lower lobe consolidation Mild right basilar lung opacities Heart is normal size IMPRESSION: Left lower lobe consolidation likely pneumonia
[2020-06-14 11:56] LABS: BUN Blood Urea Nitrogen 30 mg/dL (7-18); Bicarbonate 33 mmol/L (21-32); Glucose Level 164 mg/dL (74-106); NT PRO-BNP 885 pg/mL (<125); Potassium 4.1 mmol/L (3.5-5.1); Sodium Level 138 mmol/L (136-145); Troponin (Emerg Dept Use Only) < 0.02 ng/mL (0.0-0.045)
[2020-06-14] MEDS ORDERED: Levofloxacin 750mg IV 750 MG/150 ML BAG IV ONE (12:12)
--- NOTE | 2020-06-14 12:51 | ER ---
Nurse's Notes [facility] Name: Juana Navarro Age: 60 yrs Sex: Female : 1960 Arrival Date: 06/14/2020 Time: 10:40 Bed 8 Private MD: Diagnosis: Pneumonia, unspecified organism Presentation: 06/14 10:41 Chief complaint: EMS states: FAMILY STATES CHEST PAIN AND SOB. Coronavirus screen: At bp this time, the client does not indicate any symptoms associated with coronavirus-19. Ebola Screen: No symptoms or risks identified at this time. Initial Sepsis Screen: Does the patient meet any 2 criteria? HR > 90 bpm. No. Patient's initial sepsis screen is negative. Does the patient have a suspected source of infection? No. Patient's initial sepsis screen is negative. Risk Assessment: Do you want to hurt yourself or someone else? Patient reports no desire to harm self or others. Onset of symptoms is unknown. Care prior to arrival: Glucose check: 139. 10:41 Method Of Arrival: EMS: [facility] bp 10:41 Acuity: DAVID 3 bp Triage Assessment: 10:44 General: Appears distressed, slender, Behavior is agitated, anxious. Pain: Complains of bp pain in chest. EENT: No deficits noted. Neuro: Level of Consciousness is awake, alert, Oriented to NON VERBAL. Cardiovascular: Rhythm is sinus tachycardia. Respiratory: Reports shortness of breath. GI: PEG tube in place, clamped. : No signs and/or symptoms were reported regarding the genitourinary system. Derm: Decubitus located on sacrum approximately 1.5 cm to 2.5 cm is stage I is draining none noted. Musculoskeletal: Amputation of right foot and left foot. Historical: - Allergies: 10:44 No Known Allergies; bp - Home Meds: 10:44 atorvastatin oral oral [Active]; clopidogrel 75 mg oral tab 1 tab once daily [Active]; bp Hydralazine Oral [Active]; pantoprazole oral oral [Active]; Lisinopril Oral [Active]; - PMHx: 10:44 bed bound; CVA; Diabetes - NIDDM; G Tube; Hypertension; nonverbal; NPO, aspiration; bp - Immunization history:: Adult Immunizations up to date. - Social history:: Smoking status: Patient denies any tobacco usage or history of. - Family history:: not pertinent. - Hospitalizations: : No recent hospitalization is reported. Screenin:47 Abuse screen: Denies threats or abuse. Denies injuries from another. Nutritional bp screening: No deficits noted. Tuberculosis screening: No symptoms or risk factors identified. Fall Risk None identified. Assessment: 10:47 General: SEE TRIAGE NOTE. bp 11:30 Reassessment: XRAY AT B/S. VS STABLE ON MONITOR, EKG UNREMARKABLE. bp 12:22 Reassessment: ABX INFUSING. ALL CURRENT ORDERS RESULTED, DISPO PENDING. NO OBJECTIVE bp CHANGES IN PT STATUS. 13:34 Reassessment: PT D/C HOME VIA AMBULANCE, DX WITH PNEUMONIA. TRANSPORT PENDING. bp Vital Signs: 10:41 BP 180 / 93; Pulse 100; Resp 17; Temp 98.5; Pulse Ox 95% ; bp 11:30 BP 201 / 88; Pulse 93; Resp 16; Pulse Ox 97% ; bp 12:22 BP 160 / 100; Pulse 87; Resp 20; Pulse Ox 98% ; bp 13:36 BP 160 / 91; Pulse 91; Resp 20; Temp 98.5; Pulse Ox 99% ; bp ED Course: 10:40 Patient arrived in ED. bp 10:42 Triage completed. bp 10:44 Arm band placed on. bp 10:47 Patient has correct armband on for positive identification. Bed in low position. Call bp light in reach. Side rails up X2. shelter monitor on. Pulse ox on. NIBP on. 10:49 Diego Irizarry, POLLY is Primary Nurse. bp 10:52 Francisco J Wolfe MD is Attending Physician. rn 11:29 Inserted saline lock: 20 gauge in right antecubital area, using aseptic technique. bp Blood collected. 11:31 XRAY Chest (1 view) Sent. bp 11:34 XRAY Chest (1 view) In Process Unspecified. EDMS 13:34 No provider procedures requiring assistance completed. IV discontinued, intact, bp bleeding controlled, No redness/swelling at site. Pressure dressing applied. Patient maintains SpO2 saturation greater than 95% on room air. Administered Medications: 12:05 Drug: LevaQUIN 750 mg Volume: 150 ml; Route: IVPB; Infused Over: 90 mins; Site: right bp antecubital; 13:37 Follow up: IV Status: Completed infusion; IV Intake: 150ml bp Intake: 13:37 IV: 150ml; Total: 150ml. bp Outcome: 12:51 Discharge ordered by . rn 13:34 Discharged to home via ambulance, with family. bp 13:34 Condition: stable 13:34 Discharge instructions given to patient, Instructed on discharge instructions, follow up and referral plans. medication usage, Demonstrated understanding of instructions, follow-up care, medications, Prescriptions given X 1. 13:53 Patient left the ED. bp Addendum: 06/16/2020 14:42 Addendum: COVID-19 Result: Negative result given to RN to notify pt. Notified pt of s s negative COVID 19 swab results. Pt advised that even with a negative test result they should remain in isolation until symptom free for 3 days without medication. Pt also advised to return to the ED for worsening symptoms. Signatures: Dispatcher [employer] EDMS Francisco J Wolfe MD MD rn Smirch, Shelby, RN RN ss Peltier, Brian, RN RN bp Corrections: (The following items were deleted from the chart) 06/14 13:38 10:44 Derm: No deficits noted. bp bp
--- NOTE | 2020-06-14 12:51 | EDPHYS ---
Physician Documentation [facility] Name: Juana Navarro Age: 60 yrs Sex: Female : 1960 Arrival Date: 06/14/2020 Time: 10:40 Bed 8 Private MD: ED Physician Francisco J Wolfe HPI: 06/14 12:25 This 60 yrs old Female presents to ER via EMS with complaints of Chest Pain, rn change in breathing. 12:25 The patient or guardian reports chest pain that is located primarily in the substernal rn area. Onset: at an unknown time. The pain does not radiate. Per family, seemed like having change in breathing, and noted to have chest pain. No fever. . Historical: - Allergies: 10:44 No Known Allergies; bp - Home Meds: :44 atorvastatin oral oral [Active]; clopidogrel 75 mg oral tab 1 tab once daily [Active]; bp Hydralazine Oral [Active]; pantoprazole oral oral [Active]; Lisinopril Oral [Active]; - PMHx: 10:44 bed bound; CVA; Diabetes - NIDDM; G Tube; Hypertension; nonverbal; NPO, aspiration; bp - Immunization history:: Adult Immunizations up to date. - Social history:: Smoking status: Patient denies any tobacco usage or history of. - Family history:: not pertinent. - Hospitalizations: : No recent hospitalization is reported. ROS: 12:25 Unable to obtain ROS due to stroke patient, difficult to understand speech. rn Exam: 12:25 Constitutional: This is a well developed, well nourished patient who is awake, alert rn Head/Face: Normocephalic, atraumatic. Cardiovascular: Regular rate and rhythm. No pulse deficits. Respiratory: + mild tachypnea, no retractions, bibasilar crackles Abdomen/GI: soft, non-tender Skin: Warm, dry MS/ Extremity: Pulses equal, no cyanosis. Neuro: Awake and alert, difficult to understand speech, + bilateral lower ext amputations. Vital Signs: 10:41 BP 180 / 93; Pulse 100; Resp 17; Temp 98.5; Pulse Ox 95% ; bp 11:30 BP 201 / 88; Pulse 93; Resp 16; Pulse Ox 97% ; bp 12:22 BP 160 / 100; Pulse 87; Resp 20; Pulse Ox 98% ; bp 13:36 BP 160 / 91; Pulse 91; Resp 20; Temp 98.5; Pulse Ox 99% ; bp MDM: 10:52 Patient medically screened. rn 12:49 Differential diagnosis: pneumonia. Data reviewed: vital signs, nurses notes, lab test rn result(s), radiologic studies, plain films, and as a result, I will discharge patient. Counseling: I had a detailed discussion with the patient and/or guardian regarding: the historical points, exam findings, and any diagnostic results supporting the discharge/admit diagnosis, lab results, radiology results, the need for outpatient follow up, to return to the emergency department if symptoms worsen or persist or if there are any questions or concerns that arise at home. Response to treatment: the patient's symptoms have mildly improved after treatment, and as a result, I will discharge patient. Special discussion: I discussed with the patient/guardian in detail that at this point there is no indication for admission to the hospital. It is understood, however, that if the symptoms persist or worsen the patient needs to return immediately for re-evaluation. ED course: Normal WBC, neg procalcitonin, cxr with early infiltrate, no oxygen requirement, will dc home with liquid levaquin per feeding tube.. 06/14 10:57 Order name: CBC with Diff; Complete Time: 11:53 rn 06/14 10:57 Order name: Basic Metabolic Panel; Complete Time: 12:25 rn 06/14 10:57 Order name: Troponin (emerg Dept Use Only); Complete Time: 12:25 rn 06/14 10:57 Order name: Procalcitonin; Complete Time: 12:25 rn 06/14 10:57 Order name: BNP; Complete Time: 12:25 rn 06/14 11:55 Order name: COVID-19 rn 06/14 10:57 Order name: IV Start; Complete Time: 11:31 rn 06/14 10:57 Order name: EKG; Complete Time: 10:58 rn 06/14 10:57 Order name: EKG - Nurse/Tech; Complete Time: 10:58 rn 06/14 10:57 Order name: XRAY Chest (1 view); Complete Time: 11:53 rn Administered Medications: 12:05 Drug: LevaQUIN 750 mg Volume: 150 ml; Route: IVPB; Infused Over: 90 mins; Site: right bp antecubital; 13:37 Follow up: IV Status: Completed infusion; IV Intake: 150ml bp Disposition: 06/14/20 12:51 Discharged to Home. Impression: Pneumonia, unspecified organism. - Condition is Stable. - Discharge Instructions: Community-Acquired Pneumonia, Adult. - Prescriptions for Levaquin 250 mg/10 mL Oral solution - take 30 milliliter by G-TUBE route once daily for 10 days 1 hour before or 2 hours after a meal; 300 milliliter. - Medication Reconciliation Form, Thank You Letter, Antibiotic Education, Prescription Opioid Use form. - Follow up: Private Physician; When: As needed; Reason: Recheck today's complaints, Re-evaluation by your physician. - Problem is new. - Symptoms have improved. Signatures: Dispatcher [employer] EDMS Francisco J Wolfe MD MD rn Peltier, Brian, RN RN bp Corrections: (The following items were deleted from the chart) 13:53 12:51 06/14/2020 12:51 Discharged to Home. Impression: Pneumonia, unspecified organism. bp Condition is Stable. Prescriptions for Levaquin 250 mg/10 mL Oral solution - take 30 milliliter by G-TUBE route once daily for 10 days 1 hour before or 2 hours after a meal; 300 milliliter. and Forms are Medication Reconciliation Form, Thank You Letter, Antibiotic Education, Prescription Opioid Use. Follow up: Private Physician; When: As needed; Reason: Recheck today's complaints, Re-evaluation by your physician. Problem is new. Symptoms have improved. rn
[2020-06-14 13:59] VITALS: TEMP 98.5
[2020-06-14 14:04] VITALS: BP 160/91; O2SAT 99
--- OUTSIDE RECORDS SUMMARY | 2020-06-15 20:00 | XMS REPORT | Continuity of Care Document ---
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 Medications Ordered Filled Start Stop Current Ordering Indication Dosage Frequency Signature Comments Components Source Medication Medication Date Date Medication? Clinician (SIG) Name Name Kinsey De Santiagoюлия 2019- No Chris 5ml [facility] en en 02-25 Km [facility] - 00:00: 00:00 Memoria 00 :00 [facility] ent Clinics Lisinopril Lisinopril Yes Chris [address] [facility] Km [facility] ent [facility] Lisinopril Lisinopril Yes Chris [address] [facility] Km [facility] ent Clinics Pantoprazol Pantoprazol Yes Chris [address] [facility] [facility] e Sodium e Sodium Km [facility] ent [facility] Metformin Metformin Yes Chris [address] [facility] HCl HCl Km with a [facility] - meal [facility] ent [facility] Tramadol Tramadol Yes Chris as [facility] HCl HCl Km directed [facility] ent Clinics Plavix Plavix Yes Chris 1 tablet [facility] K[facility] l [facility] Atorvastati Atorvastati Yes Chris TAKE [address] [facility] n Calcium n Calcium Km TABLET BY [facility] - MOUTH AT [facility] BEDTIME l [facility]ics HydrALAZINE HydrALAZINE Yes Chris [address] [facility] HCl HCl Km with food kes - [facility] l [facility] Procedures This patient has no known procedures. Encounters Start End Encounter Admission Attending Care Care Encounter Source Date/Time Date/Time Type Type Clinicians Facility Department ID 2020-04-04 2020-04-04 Emergency [facility] [id number] 11:03:02 15:12:00 Jessica Lyons [id number] [place] [id number] [place] [id number] 2019-04-20 2019-04-20 [facility] [id number] [facility] 13:00:00 13:00:00 [facility] Medicine Outpati ent Clinics 2019-04-09 2019-04-09 [facility] [id number] [address] 10:46:00 10:46:00 [facility] Medicine Outpati ent Clinics 2019-03-17 2019-03-17 [facility] [id number] [address] 11:16:00 11:16:00 [facility] Medicine Outpati ent Clinics 2019-03-09 2019-03-09 [facility] [id number] 09:17:00 09:17:00 [facility] Medicine Outpati ent Clinics 2019-02-25 2019-02-25 [facility] [id number] [address] 09[facility]30:00 09:30:00 [facility] Medicine Outpati ent Clinics 2019-01-22 2019-01-22 [facility] [id number] 16:32:00 16:32:00 [facility] Medicine Outpati ent Clinics 2018-12-25 2018-12-25 [facility] [id number] 16:16:00 16:16:00 t [facility] Medicine Outpati ent Clinics 2018-12-11 2018-12-11 [facility] [id number] 09:32:00 09:32:00 t [facility] Medicine Outpati ent Clinics 2018-12-09 2018-12-09 [facility] [id number] 15:59:00 15:59:00 t [facility] Medicine Outpati ent Clinics 2018-12-01 2018-12-01 [facility] [id number] 16:57:00 16:57:00 t [facility] Medicine Outpati ent Clinics 2018-11-24 2018-11-24 [facility] [id number] 14:15:00 14:15:00 [facility] Results This patient has no known results.
== END 2020-06-14 13:53 | disposition home or self-care (01) ==
LOC: ER 10:39
DX: J18.9 Pneumonia, unspecified organism (principal); Z20.828 Contact with and (suspected) exposure to other viral communicable diseases; I10 Essential (primary) hypertension; E11.9 Type 2 diabetes mellitus without complications; Z86.73 Personal history of transient ischemic attack (TIA), and cerebral infarction without residual deficits
CPT/HCPCS: 96365; 93005; 85025; 80048; 36415; 84484; 84145; 83880; 71045; 99285; 96366; U0002

== ENCOUNTER 2020-09-20 15:19 | Emergency (ER) | payer MEDICAID ==
--- OUTSIDE RECORDS SUMMARY | 2020-09-20 15:32 | XMS REPORT | Continuity of Care Document ---
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 Medications Ordered Filled Start Stop Current Ordering Indication Dosage Frequency Signature Comments Components Source Medication Medication Date Date Medication? Clinician (SIG) Name Name Kinsey De Santiagoюлия 2019- No Chris [facility]ml [facility] en en 02-25 Km [facility] - 00:00: 00:00 Memoria 00 :00 [facility] ent [facility] Lisinopril Lisinopril Yes Chris [address] [facility] Km [facility] ent [facility] Lisinopril Lisinopril Yes Chris [address] [facility] [facility] Km [facility] ent Clinics Pantoprazol Pantoprazol Yes Chris [address] e Sodium e Sodium Km [facility] ent [facility] Metformin Metformin Yes Chris [address] HCl HCl Km with a [facility] - meal [facility] ent [facility] Tramadol Tramadol Yes Chris as [facility] HCl HCl Km directed [facility] ent Clinics Plavix Plavix Yes Chris 1 tablet [facility] Mk [facility] ent Clinics Atorvastati Atorvastati Yes Chris TAKE [address] [facility] n Calcium n Calcium Km TABLET BY [facility]TH AT [facility] HydrALAZINE HydrALAZINE Yes Chris [address] HCl HCl Km with food kes - [facility] l [facility] ent Clinics Procedures This patient has no known procedures. Encounters Start End Encounter Admission Attending Care Care Encounter Source Date/Time Date/Time Type Type Clinicians Facility Department ID 2020-04-04 2020-04-04 Emergency [facility] [id number] 11:03:02 15:12:00 Jessica Lyons [id number] [place] [id number] [place] [id number] 2019-04-20 2019-04-20 [place] [facility] [id number] 13:00:00 13:00:00 [facility] Medicine Outpati ent Clinics 2019-04-09 2019-04-09 [place] [facility] [id number] 10:46:00 10:46:00 [facility] 2019-03-17 2019-03-17 [facility] [id number] 11:16:00 11:16:00 [facility] Medicine Medicine Outpati ent Clinics 2019-03-09 2019-03-09 [facility] [id number] 09:17:00 09:17:00 [facility] Medicine Medicine Outpati ent Clinics 2019-02-25 2019-02-25 [place] [facility] [id number] 09[facility]30:00 09:30:00 [facility] Medicine Medicine Outpati ent Clinics 2019-01-22 2019-01-22 [facility] [id number] 16:32:00 16:32:00 [facility] Medicine Medicine Outpati ent Clinics 2018-12-25 2018-12-25 [facility] [id number] 16:16:00 16:16:00 t [facility] Medicine Outpati ent Clinics 2018-12-11 2018-12-11 [facility] [id number] 09:32:00 09:32:00 [facility] Medicine Outpati ent Clinics 2018-12-09 2018-12-09 [place] [facility] [id number] 15:59:00 15:59:00 t [facility] Medicine Outpati ent Clinics 2018-12-01 2018-12-01 [place] [id number] 16:57:00 16:57:00 [facility] Medicine Outpati ent Clinics 2018-11-24 2018-11-24 [place] [place] [id number] 14:15:00 14:15:00 [facility] Medicine Outpati ent Clinics Results This patient has no known results.
--- NOTE | 2020-09-20 16:47 | RAD REPORT ---
EXAM DESCRIPTION: RAD - Abdomen 1 View (KUB) - 09/20/2020 4:22 pm CLINICAL HISTORY: needs gastric tube replaced , abdominal pain COMPARISON: No comparisons FINDINGS: Bowel gas pattern is non-specific. No obstruction, free air or pneumatosis. No suspicious calcifications. Significant degenerative changes are present at the L4-5 disc level. No destructive component seen. [place] structures overall are osteopenic. No pelvis or proximal femur acute finding. IMPRESSION: Negative KUB examination for acute finding.
--- NOTE | 2020-09-20 17:17 | RAD REPORT ---
EXAM DESCRIPTION: RAD - ENTEROSTOMY TUBE CHECK W/CONTR - 09/20/2020 5:01 pm CLINICAL HISTORY: Replacement or repositioning of enterostomy tube COMPARISON: ENTEROSTOMY TUBE CHECK W/CONTR dated 04/14/2020 FINDINGS: Two KUB images were obtained prior to and subsequent to retrograde injection of contrast m aterial. Enterostomy tube have been replaced or repositioned prior to the examination. Pre-injection examination shows no change from earlier in the day. The enterostomy tube is identifiab le. Post-injection examination shows contrast within the stomach and proximal small bowel. No extralumina l contrast identifiable. IMPRESSION: Successful replacement or repositioning of enterostomy tube.
--- NOTE | 2020-09-20 17:29 | EDPHYS ---
Physician Documentation [facility] Name: Juana Navarro Age: 60 yrs Sex: Female : 1960 Arrival Date: 09/20/2020 Time: 15:24 Bed 17 Private MD: ED Physician Francisco J Wolfe HPI: 09/20 15:30 This 60 yrs old Female presents to ER via EMS with complaints of Replacement cp of Enterostomy Tube. 15:30 EMS reports that patient accidently pulled enterostomy tube out today. No other cp complaints expressed. Onset: The symptoms/episode began/occurred just prior to arrival. Historical: - Allergies: 15:27 No Known Allergies; jd3 - Home Meds: 15:27 atorvastatin Oral [Active]; clopidogrel 75 mg Oral tab 1 tab once daily [Active]; jd3 Hydralazine Oral [Active]; lisinopril Oral [Active]; pantoprazole Oral [Active]; - PMHx: 15:27 bed bound; CVA; Diabetes - NIDDM; G Tube; Hypertension; nonverbal; NPO, aspiration; jd3 - PSHx: 15:27 G tube; jd3 - Immunization history:: Adult Immunizations unknown. - Social history:: Smoking status: unknown. ROS: 15:35 Unable to obtain ROS due to Patient nonverbal due to previous CVA. cp Exam: 15:45 Constitutional: The patient appears in no acute distress, alert, awake, non-toxic, well cp developed, well nourished. 15:45 Head/Face: Normocephalic, atraumatic. cp 15:45 Eyes: Periorbital structures: appear normal, Conjunctiva: normal, no exudate, no injection, Sclera: no appreciated abnormality. 15:45 Chest/axilla: Inspection: normal. 15:45 Cardiovascular: Rate: normal. 15:45 Respiratory: the patient does not display signs of respiratory distress, Respirations: normal, no use of accessory muscles, no retractions, labored breathing, is not present, Breath sounds: are clear throughout, no decreased breath sounds. 15:45 Abdomen/GI: Inspection: distension, is not seen, gastric stoma left upper abdomen, Bowel sounds: active, all quadrants, Palpation: abdomen is soft and non-tender, in all quadrants, rebound tenderness, is not appreciated, involuntary guarding, is not appreciated. 15:45 Skin: cellulitis, is not appreciated. 15:45 Musculoskeletal/extremity: Extremities: bilateral BKA. cp Vital Signs: 15:27 BP 160 / 65; Pulse 95; Resp 16 S; Temp 97.9(TE); Pulse Ox 98% on R/A; jd3 16:20 BP 99 / 72; Pulse 84; Resp 16 S; Pulse Ox 99% on R/A; jd3 17:45 BP 131 / 55; Pulse 76; Resp 17 S; Pulse Ox 100% on R/A; jd3 Procedures: 17:10 G-tube placement: a 14 Lithuanian catheter was placed, by the ED physician, Mykel TURCIOS. cp MDM: 15:28 Patient medically screened. cp 17:28 Data reviewed: vital signs, nurses notes, radiologic studies, plain films. cp 17:28 Counseling: I had a detailed discussion with the patient and/or guardian regarding: the cp historical points, exam findings, and any diagnostic results supporting the discharge/admit diagnosis, radiology results, to return to the emergency department if symptoms worsen or persist or if there are any questions or concerns that arise at home. Response to treatment: the patient's symptoms have resolved after treatment, enterostomy tube replaced, and as a result, I will discharge patient. 09/20 15:30 Order name: XRDANG KUB; Complete Time: 17:24 09/20 17:24 Interpretation: Report reviewed. 09/20 16:28 Order name: PEG Tube Check w/contrast; Complete Time: 17:24 09/20 17:24 Interpretation: Report reviewed. cp Administered Medications: No medications were administered Disposition: 17:35 Chart complete. cp 18:50 Co-signature as Attending Physician, Francisco J Wolfe MD. rn Disposition: 09/20/20 17:29 Discharged to Home. Impression: Gastrostomy status - replacement of enterostomy tube. - Condition is Stable. - Discharge Instructions: Gastrostomy Tube Home Guide, Adult. - Medication Reconciliation Form, Thank You Letter, Antibiotic Education, Prescription Opioid Use form. - Follow up: Private Physician; When: 1 - 2 days; Reason: Worsening of condition. - Problem is new. - Symptoms are resolved. Signatures: Dispatcher [employer] EDMS Francisco J Wolfe MD MD rn Page, Corey, PA PA cp Hakan Monk RN RN jd3 Corrections: (The following items were deleted from the chart) 17:27 15:30 This 60 yrs old Female presents to ER via EMS with complaints of cp Replacement of Gastrostimy Tube. cp 18:21 17:29 09/20/2020 17:29 Discharged to Home. Impression: Gastrostomy status - replacement jd3 of enterostomy tube. Condition is Stable. Forms are Medication Reconciliation Form, Thank You Letter, Antibiotic Education, Prescription Opioid Use. Follow up: Private Physician; When: 1 - 2 days; Reason: Worsening of condition. Problem is new. Symptoms are resolved. cp 09/21 01:13 01:10 G-tube placement: a 14 Lithuanian catheter was placed, by the ED physician, Mykel TURCIOS cp
--- NOTE | 2020-09-20 17:29 | ER ---
Nurse's Notes [facility] Name: Juana Navarro Age: 60 yrs Sex: Female : 1960 Arrival Date: 09/20/2020 Time: 15:24 Bed 17 [facility] MD: Diagnosis: Gastrostomy status-replacement of enterostomy tube Presentation: 09/20 15:24 Chief complaint: EMS states: "family called for a G tube that was pulled out during jd3 changing the patient. no pain noted. the pt has had a stroke in the past and has a hard time communicating.". Coronavirus screen: At this time, the client does not indicate any symptoms associated with coronavirus-19. Ebola Screen: Patient negative for fever greater than or equal to 101.5 degrees Fahrenheit, and additional compatible Ebola Virus Disease symptoms. Initial Sepsis Screen: Does the patient meet any 2 criteria? No. Patient's initial sepsis screen is negative. Does the patient have a suspected source of infection? No. Patient's initial sepsis screen is negative. Risk Assessment: Do you want to hurt yourself or someone else? Patient reports no desire to harm self or others. Onset of symptoms was September 20, 2020. 15:24 Method Of Arrival: EMS: [facility] jd3 15:24 Acuity: DAVID 4 jd3 Historical: - Allergies: 15:27 No Known Allergies; jd3 - Home Meds: 15:27 atorvastatin Oral [Active]; clopidogrel 75 mg Oral tab 1 tab once daily [Active]; jd3 Hydralazine Oral [Active]; lisinopril Oral [Active]; pantoprazole Oral [Active]; - PMHx: 15:27 bed bound; CVA; Diabetes - NIDDM; G Tube; Hypertension; nonverbal; NPO, aspiration; jd3 - PSHx: 15:27 G tube; jd3 - Immunization history:: Adult Immunizations unknown. - Social history:: Smoking status: unknown. Screenin:29 Abuse screen: Denies threats or abuse. Nutritional screening: No deficits noted. jd3 Tuberculosis screening: No symptoms or risk factors identified. Fall Risk Secondary diagnosis (15 points) impaired mobility, Ambulatory Aid- None/Bed Rest/Nurse Assist (0 pts). Gait- Normal/Bed Rest/Wheelchair (0 pts) Mental Status- Overestimates/Forgets Limitations (15 pts.). Total Cohen Fall Scale indicates Low Risk Score (25-44 pts). Fall prevention measures have been instituted. Side Rails Up X 2 Placed close to Nursing Station Frequent Obs/Assesments occuring Family Present and informed to notify staff if they need to leave bedside. Assessment: 15:27 General: Appears in no apparent distress. comfortable, well groomed, Behavior is calm, jd3 cooperative. Pain: Unable to use pain scale. FLACC scale score is 0 out of 10. Neuro: Level of Consciousness is awake, alert, obeys commands, Oriented to person. Cardiovascular: Capillary refill < 3 seconds Patient's skin is warm and dry. Respiratory: Airway is patent Respiratory effort is even, unlabored, Respiratory pattern is regular, symmetrical. GI: Abdomen is round non-distended, PEG tube Tube displaced. Abd is soft and non tender X 4 quads. : No signs and/or symptoms were reported regarding the genitourinary system. EENT: No signs and/or symptoms were reported regarding the EENT system. Derm: Skin is intact, Skin is dry, Skin is normal, Skin temperature is warm. 16:20 Reassessment: Patient appears in no apparent distress at this time. No changes from jd3 previously documented assessment. Patient and/or family updated on plan of care and expected duration. Pain level reassessed. family at bedside. 17:44 Reassessment: Patient appears in no apparent distress at this time. No changes from jd3 previously documented assessment. Patient and/or family updated on plan of care and expected duration. Pain level reassessed. discharge instructions given to family, G tube replaced by provider. awaiting EMS for discharge home for bed bound pt. 18:20 Reassessment: Patient appears in no apparent distress at this time. Patient and/or jd3 family updated on plan of care and expected duration. Pain level reassessed. pt assisted into wheelchair to discharge home with family. Vital Signs: 15:27 BP 160 / 65; Pulse 95; Resp 16 S; Temp 97.9(TE); Pulse Ox 98% on R/A; jd3 16:20 BP 99 / 72; Pulse 84; Resp 16 S; Pulse Ox 99% on R/A; jd3 17:45 BP 131 / 55; Pulse 76; Resp 17 S; Pulse Ox 100% on R/A; jd3 ED Course: 15:24 Patient arrived in ED. jd3 15:24 Hakan Monk, RN is Primary Nurse. jd3 15:24 Mykel Carrera PA is PHCP. cp 15:24 Francisco J Wolfe MD is Attending Physician. cp 15:26 Triage completed. jd3 15:27 Arm band placed on. jd3 15:30 Patient has correct armband on for positive identification. Bed in low position. Call j light in reach. Side rails up X2. Adult w/ patient. Pulse ox on. NIBP on. 16:19 Nurse Practitioner and/or Physician Physician Assistant Primary Care to see patient. jd3 16:19 G tube placement. jd3 16:24 XRAY KUB In Process Unspecified. EDMS 17:01 PEG Tube Check w/contrast In Process Unspecified. EDMS 17:45 Patient did not have IV access during this emergency room visit. jd3 Administered Medications: No medications were administered Outcome: 17:29 Discharge ordered by MD. cp 17:45 Condition: stable jd3 17:45 Discharge instructions given to family, Instructed on discharge instructions, follow up and referral plans. Demonstrated understanding of instructions, follow-up care. 18:20 Discharged to home via wheelchair, with family. jd3 18:21 Patient left the ED. jd3 Signatures: Dispatcher [employer] EDVA Mykel Carrera PA PA cp Davies, Jonathon, RN RN jd3
[2020-09-20 18:30] VITALS: TEMP 97.9
[2020-09-20 18:32] VITALS: BP 131/55; O2SAT 100
== END 2020-09-20 18:21 | disposition home or self-care (01) ==
LOC: ER 15:19
DX: Z43.1 Encounter for attention to gastrostomy (principal)
CPT/HCPCS: 49465; 74018; 99283

== ENCOUNTER 2021-03-03 11:12 | Emergency (ER) | payer MEDICAID ==
--- OUTSIDE RECORDS SUMMARY | 2021-03-03 11:16 | XMS REPORT | Continuity of Care Document ---
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 Medications Ordered Filled Start Stop Current Ordering Indication Dosage Frequency Signature Comments Components Source Medication Medication Date Date Medication? Clinician (SIG) Name Name Delmydarek Euceda 2019- No Chris 5ml [facility] en en 02-25 Km [facility] - 00:00: 00:00 Memoria 00 :00 [facility] ent [facility] Lisinopril Lisinopril Yes Chris [address] [facility] Km [facility] Lisinopril Lisinopril Yes Chris [address] [facility] [address] [facility] - [facility] ent [facility] Pantoprazol Pantoprazol Yes Chris [address] [facility] e Sodium e Sodium Km [facility] - [facility] ent [facility] Metformin Metformin Yes Chris [address] [facility] HCl HCl Km with a [facility] - meal [facility] ent [facility] Tramadol Tramadol Yes Chris as [facility] HCl HCl Km directed L[facility] - [facility] ent Clinics Plavix Plavix Yes Chris 1 tablet [facility] Km [facility] Clinics Atorvastati Atorvastati Yes Chris TAKE [address] [facility] n Calcium n Calcium Km TABLET BY [facility] - MOUTH AT [facility] HydrALAZINE HydrALAZINE Yes Chris [address] [facility] HCl HCl Km with food kes - [facility] l [facility] ent Clinics Procedures This patient has no known procedures. Encounters Start End Encounter Admission Attending Care Care Encounter Source Date/Time Date/Time Type Type Clinicians Facility Department ID 2020-10-17 2020-10-17 Office Marialuisa [facility] [id number] 10:00:12 13:40:16 Visit Han Lyons [id number] Lilian [id number] Irineo [id number] [facility] 2019-04-20 2019-04-20 Outpatient Jett Fraust[place] [id number] [facility] 13:00:00 13:00:00 [facility] Medicine Medicine Outpati ent Clinics 2019-04-09 2019-04-09 [place] [id number] [facility] 10:46:00 10:46:00 [facility] Medicine Outpati ent Clinics 2019-03-17 2019-03-17 [place] [id number] [facility] 11:16:00 11:16:00 [facility] Medicine Medicine Outpati ent Clinics 2019-03-09 2019-03-09 [place] [id number] [facility] 09:17:00 09:17:00 [facility] Medicine Medicine Outpati ent Clinics 2019-02-25 2019-02-25 Outpatient [place] [id number] [facility] 09:30:00 09:30:00 [facility] Medicine Medicine Outpati ent Clinics 2019-01-22 2019-01-22 [place] [id number] 16:32:00 16:32:00 t [facility] Medicine Outpati ent Clinics 2018-12-25 2018-12-25 [place] [id number] 16:16:00 16:16:00 t [facility] Medicine Outpati ent Clinics 2018-12-11 2018-12-11 [place] [id number] [facility] 09:32:00 09:32:00 t [facility] Medicine Outpati ent Clinics 2018-12-09 2018-12-09 [place] [id number] [facility] 15:59:00 15:59:00 t [facility] Medicine Outpati ent Clinics 2018-12-01 2018-12-01 [place] [id number] 16:57:00 16:57:00 t [facility] Medicine Outpati ent Clinics 2018-11-24 2018-11-24 [place] [id number] 14:15:00 14:15:00 t [facility] Medicine Outpati ent Clinics Results This patient has no known results.
--- NOTE | 2021-03-03 12:13 | EDPHYS ---
Physician Documentation [facility] Name: Juana Navarro Age: 60 yrs Sex: Female : 1960 Arrival Date: 03/03/2021 Time: 11:17 Bed 4 Private MD: ED Physician Mykel Romero HPI: 03/03 12:07 This 60 yrs old Female presents to ER via EMS with complaints of right upper austyn oral abscess. 12:07 The patient presents with bleeding, broken tooth/teeth, swelling. The problem is austyn located in the right eye, right cheek and right jaw. Onset: The symptoms/episode began/occurred 3 day(s) ago. Duration: The symptoms are continuous, and are steadily getting worse. Modifying factors: The symptoms are alleviated by nothing, the symptoms are aggravated by nothing. Associated signs and symptoms: The patient has no apparent associated signs or symptoms. The patient has not experienced similar symptoms in the past. Historical: - PMHx: CVA; Hypertension; Diabetes - NIDDM; ea - Immunization history:: Adult Immunizations up to date. - Social history:: Smoking status: unknown. - Family history:: not pertinent. ROS: 12:07 Constitutional: Negative for fever, chills, and weight loss, Eyes: Negative for injury, austyn pain, redness, and discharge, Neck: Negative for injury, pain, and swelling, Cardiovascular: Negative for chest pain, palpitations, and edema, Respiratory: Negative for shortness of breath, cough, wheezing, and pleuritic chest pain, Abdomen/GI: Negative for abdominal pain, nausea, vomiting, diarrhea, and constipation, Back: Negative for injury and pain, : Negative for injury, bleeding, discharge, and swelling, MS/Extremity: Negative for injury and deformity, Skin: Negative for injury, rash, and discoloration, Neuro: Negative for headache, weakness, numbness, tingling, and seizure, Psych: Negative for depression, anxiety, suicide ideation, homicidal ideation, and hallucinations, Allergy/Immunology: Negative for hives, rash, and allergies, Endocrine: Negative for neck swelling, polydipsia, polyuria, polyphagia, and marked weight changes, Hematologic/Lymphatic: Negative for swollen nodes, abnormal bleeding, and unusual bruising. 12:07 ENT: Positive for dental pain, Teeth pain Exam: 12:07 Constitutional: This is a well developed, well nourished patient who is awake, alert, austyn and in no acute distress. Eyes: Pupils equal round and reactive to light, extra-ocular motions intact. Lids and lashes normal. Conjunctiva and sclera are non-icteric and not injected. Cornea within normal limits. Periorbital areas with no swelling, redness, or edema. Neck: Trachea midline, no thyromegaly or masses palpated, and no cervical lymphadenopathy. Supple, full range of motion without nuchal rigidity, or vertebral point tenderness. No Meningismus. Chest/axilla: Normal chest wall appearance and motion. Nontender with no deformity. No lesions are appreciated. Cardiovascular: Regular rate and rhythm with a normal S1 and S2. No gallops, murmurs, or rubs. Normal PMI, no JVD. No pulse deficits. Respiratory: Lungs have equal breath sounds bilaterally, clear to auscultation and percussion. No rales, rhonchi or wheezes noted. No increased work of breathing, no retractions or nasal flaring. Abdomen/GI: Soft, non-tender, with normal bowel sounds. No distension or tympany. No guarding or rebound. No evidence of tenderness throughout. Back: No spinal tenderness. No costovertebral tenderness. Full range of motion. Female : Normal external genitalia. Skin: Warm, dry with normal turgor. Normal color with no rashes, no lesions, and no evidence of cellulitis. MS/ Extremity: Pulses equal, no cyanosis. Neurovascular intact. Full, normal range of motion. Neuro: Awake and alert, GCS 15, oriented to person, place, time, and situation. Cranial nerves II-XII grossly intact. Motor strength 5/5 in all extremities. Sensory grossly intact. Cerebellar exam normal. Normal gait. Psych: Awake, alert, with orientation to person, place and time. Behavior, mood, and affect are within normal limits. 12:07 Head/face: Noted is erythema, swelling, that is moderate, of the right eye, right cheek and right jaw, Sinus tenderness, that is moderate, is located over the right maxillary sinus. 12:13 ECG was reviewed by the Attending Physician. [facility] Vital Signs: 11:24 BP 170 / 68; Pulse 90; Resp 18; Temp 97.8; Pulse Ox 96% on R/A; ea MDM: 11:17 Patient medically screened. [facility] 12:10 Differential diagnosis: dental caries, dental abscess. Data reviewed: vital signs, [facility] nurses notes, lab test result(s), EKG, radiologic studies, CT scan, plain films. Data interpreted: yard spotter: rate is 90 beats/min, rhythm is regular, Pulse oximetry: on room air is 96 %. Test interpretation: by ED physician or midlevel provider: ECG, plain radiologic studies. Counseling: I had a detailed discussion with the patient and/or guardian regarding: the historical points, exam findings, and any diagnostic results supporting the discharge/admit diagnosis, lab results, radiology results, the need to transfer to another facility, for higher level of care, [facility] does not immediately have the required specialist. 03/03 11:48 Order name: Basic Metabolic Panel [facility] 03/03 11:48 Order name: CBC with Diff; Complete Time: 12:39 [facility] 03/03 11:48 Order name: LFT's [facility] 03/03 11:48 Order name: Magnesium; Complete Time: 13:28 [facility] 03/03 11:48 Order name: NT PRO-BNP; Complete Time: 13:28 [facility] 03/03 11:48 Order name: PT-INR; Complete Time: 12:39 [facility] 03/03 11:48 Order name: Troponin (emerg Dept Use Only); Complete Time: 13:28 [facility] 03/03 11:48 Order name: XRAY Chest (1 view) [facility] 03/03 11:48 Order name: Basic Metabolic Panel; Complete Time: 13:28 [facility] 03/03 11:48 Order name: Liver (Hepatic) Function; Complete Time: 13:28 [facility] 03/03 12:48 Order name: Facial Bones W Con ; Complete Time: 13:28 [facility] 03/03 13:50 Order name: SARS-COV-2 RT PCR [facility] 03/03 11:48 Order name: EKG; Complete Time: 11:49 [facility] 03/03 11:48 Order name: Cardiac monitoring; Complete Time: 12:09 [facility] 03/03 11:48 Order name: EKG - Nurse/Tech; Complete Time: 12:06 [facility] 03/03 11:48 Order name: IV Saline Lock; Complete Time: 11:52 [facility] 03/03 11:48 Order name: Labs collected and sent; Complete Time: 12:10 [facility] 03/03 11:48 Order name: O2 Per Protocol; Complete Time: 52 [facility] 03/03 11:48 Order name: O2 Sat Monitoring; Complete Time: [facility] EC:13 Rate is 99 beats/min. Rhythm is regular. QRS [place] is Normal. AR interval is normal. QRS austyn interval is normal. QT interval is normal. No Q waves. T waves are Normal. No ST changes noted. Clinical impression: Normal ECG and No evidence of ischemia. Interpreted by me. Reviewed by me. Administered Medications: 12:08 Drug: Zofran (Ondansetron) 4 mg Route: IVP; Site: right antecubital; tr6 12:08 Drug: Pepcid (famotidine) 20 mg Route: IVP; Site: right antecubital; tr6 12:09 Drug: Rocephin (cefTRIAXone) 1 grams Route: IV; Rate: per protocol; Site: right tr6 antecubital; 12:09 Drug: Clindamycin 900 mg Route: IVPB; Infused Over: 30 mins; Site: right antecubital; tr6 12:09 Drug: NS 0.9% 1000 ml Route: IV; Rate: 125 ml/hr; Site: right antecubital; tr6 12:09 Drug: morphine 2 mg Route: IVP; Site: right antecubital; tr6 Disposition: 03/03/21 12:13 Transfer ordered to [facility]. Diagnosis are Dental caries, Periapical abscess without sinus, Type 2 diabetes mellitus. - Reason for transfer: Higher level of care. - Accepting physician is to [facility]. - Condition is Fair. - Problem is new. - Symptoms have improved. Signatures: Dispatcher [employer] EDMykel Rubalcava MD MD cha Antunez, Elena, Annie Guerrero RN, ea, RN RN tr6 Corrections: (The following items were deleted from the chart) 12:48 11:49 Facial Bones W/ MPR+CT.RAD.BRZ ordered. EDKY EDMS 12:56 12:14 CORONAVIRUS+MR.LAB.BRZ ordered. EDKY EDMS 15:11 12:13 03/03/2021 12:13 Transfer ordered to [facility]. Diagnosis is Dental caries; tr6 Periapical abscess without sinus; Type 2 diabetes mellitus. Reason for transfer: Higher level of care. Accepting physician is to [facility]. Condition is Fair. Problem is new. Symptoms have improved. austyn
--- NOTE | 2021-03-03 12:13 | ER ---
Nurse's Notes [facility] Name: Juana Navarro Age: 60 yrs Sex: Female : 1960 Arrival Date: 03/03/2021 Time: 11:17 Bed 4 Private MD: Diagnosis: Dental caries;Periapical abscess without sinus;Type 2 diabetes mellitus Presentation: 03/03 11:24 Chief complaint: EMS states: right side of pt face very swollen beginning yesterday, ea much worse this morning. Coronavirus screen: At this time, unable to obtain information related to travel outside the [place] Ebola Screen: Patient negative for fever greater than or equal to 101.5 degrees Fahrenheit, and additional compatible Ebola Virus Disease symptoms Patient denies exposure to infectious person. Patient denies travel to an Ebola-affected area in the 21 days before illness onset. Initial Sepsis Screen: Does the patient meet any 2 criteria? No. Patient's initial sepsis screen is negative. Does the patient have a suspected source of infection? Yes: No. Patient's initial sepsis screen is negative. Risk Assessment: Do you want to hurt yourself or someone else? Patient reports no desire to harm self or others. Onset of symptoms was March 02, 2021. 11:24 Method Of Arrival: EMS: [facility] ea 11:24 Acuity: DAVID 2 ea Historical: - PMHx: 11:26 CVA; Hypertension; Diabetes - NIDDM; ea - Immunization history:: Adult Immunizations up to date. - Social history:: Smoking status: unknown. - Family history:: not pertinent. Screenin:13 Abuse screen: Denies threats or abuse. Denies injuries from another. Nutritional tr6 screening: On NPO diet, pt has PEG tube. Tuberculosis screening: No symptoms or risk factors identified. Fall Risk. Assessment: 12:10 General: Appears uncomfortable, Behavior is calm, cooperative, appropriate for age. tr6 Pain: Complains of pain in right face, teeth. Neuro: No deficits noted. Cardiovascular: No deficits noted. Respiratory: No deficits noted. GI: No deficits noted. : No deficits noted. EENT: swelling and redness noted on pts entire right side of face. Parent/caregiver reports the patient having pain in right jaw since yesterday, and woke up this morning with swelling to entire right side of face. Derm: swelling and redness noted to pts entire right side of face. 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 Range of motion: limited in b/l arms since CVA. 12:17 Reassessment: pts daughter at bedside reports that pts baseline speech is sometimes tr6 incomprehensible due to hx of CVA. pt also has limited movement/ strength on b/l arms since CVA. . Vital Signs: 11:24 BP 170 / 68; Pulse 90; Resp 18; Temp 97.8; Pulse Ox 96% on R/A; ea ED Course: 11:17 Patient arrived in ED. ca1 11:17 Mykel Romero MD is Attending Physician. austyn 11:23 Kiera Griffin, RN is Primary Nurse. ea 11:25 Triage completed. ea 12:06 EKG done, by ED staff, reviewed by Mykel Romero MD. em1 12:09 initiated a transfer with Ian Zepeda from the [facility] Transfer Center. eb 12:10 No provider procedures requiring assistance completed. Inserted saline lock: 20 gauge tr6 in right antecubital area, using aseptic technique. Blood collected. 12:13 Patient has correct armband on for positive identification. Bed in low position. Call tr6 light in reach. Side rails up X2. Pulse ox on. NIBP on. Door closed. Noise minimized. Visitors limited. Lights dimmed. Moved to private room. Warm blanket given. 12:[address] Shoemaker the F surgeon division sales manager for [facility] with Dr. Romero for patient transfer consultation. 12:33 XRAY Chest (1 view) In Process Unspecified. EDMS 12:38 administrative approval given by Ian Zepeda/ patient has been accepted to [facility] 11B room 1125/ Dr. Joel Hernandez has accepted the patient in transfer/ report to be called to [phone]. 12:49 Facial Bones W Con In Process Unspecified. EDMS 14:24 Report given to Raheem RN at [facility] 11B. tr6 15:10 Patient transferred, IV remains in place. tr6 Administered Medications: 12:08 Drug: Zofran (Ondansetron) 4 mg Route: IVP; Site: right antecubital; tr6 12:08 Drug: Pepcid (famotidine) 20 mg Route: IVP; Site: right antecubital; tr6 12:09 Drug: Rocephin (cefTRIAXone) 1 grams Route: IV; Rate: per protocol; Site: right tr6 antecubital; 12:09 Drug: Clindamycin 900 mg Route: IVPB; Infused Over: 30 mins; Site: right antecubital; tr6 12:09 Drug: NS 0.9% 1000 ml Route: IV; Rate: 125 ml/hr; Site: right antecubital; tr6 12:09 Drug: morphine 2 mg Route: IVP; Site: right antecubital; tr6 Outcome: 12:13 ER care complete, transfer ordered by MD. zaman 14:22 Transferred by ground EMS to [facility]. tr6 14:22 Condition: stable 14:22 Instructed on the need for transfer, Demonstrated understanding of instructions, follow-up care, medications. 15:11 Patient left the ED. tr6 Signatures: Dispatcher [employer] EDMS Mykel Romero MD MD cha Martinez, Eric em Kiera Griffin RN RN ea Botello, Elizabeth eb Acob, Cheryl, RN RN ca1 Ramnanan, Tiffany, RN RN tr6 Corrections: (The following items were deleted from the chart) 12:59 12:09 initiated a transfer with Ian Grant from the [facility] Transfer Center. evan gordon
[2021-03-03] MEDS ORDERED: MORPHINE 2 MG/ML SYR ONE (12:15)
[2021-03-03 12:16] LABS: Protime INR 1.06
[2021-03-03] MEDS ORDERED: FAMOTIDINE 20 MG/2 ML VIAL IV ONE ×2 (12:16→12:53)
[2021-03-03] MEDS ORDERED: ONDANSETRON 4 MG/2 ML VIAL ONE (12:16)
[2021-03-03] MEDS ORDERED: NA CHLORIDE 0.9% 1,000 ML ONE (12:16)
[2021-03-03] MEDS ORDERED: CLINDAMYCIN 900MG/D5W 900 MG/50 ML IVPB IV ONE (12:16)
[2021-03-03] MEDS ORDERED: CEFTRIAXONE/SWI 1gm 1 GM/10 ML SYR ONE (12:16)
[2021-03-03 12:18] LABS: Absolute Lymphocytes (CBC) 1.5 K/uL (0.7-4.9); Basophils % 0.3 % (0-1.3); Hematocrit 42.4 % (36.0-45.0); Lymphocytes % 13.5 % (15.3-44.8); MPV 8.8 fL (7.6-11.3); RBC Red Blood Cell Count 4.77 M/uL (3.86-4.86)
[2021-03-03 12:48] LABS: ALT/SGPT 19 U/L (12-78); AST/SGOT 14 U/L (15-37); Albumin 3.6 g/dL (3.4-5.0); Alkaline Phosphatase 85 U/L (45-117); BUN Blood Urea Nitrogen 26 mg/dL (7-18); Bicarbonate 32 mmol/L (21-32); Bilirubin Direct 0.2 mg/dL (0-0.2); Bilirubin Total 0.7 mg/dL (0.2-1.0); Glucose Level 80 mg/dL (74-106); NT PRO-BNP 549 pg/mL (<125); Potassium 3.9 mmol/L (3.5-5.1); Protein, Total 8.6 g/dL (6.4-8.2); Sodium Level 140 mmol/L (136-145); Troponin (Emerg Dept Use Only) < 0.02 ng/mL (0.0-0.045)
--- NOTE | 2021-03-03 13:18 | RAD REPORT ---
EXAM DESCRIPTION: CT - Facial Bones W Con Mpr - 03/03/2021 12:49 pm CLINICAL HISTORY: Right-sided facial swelling, pain COMPARISON: None. TECHNIQUE: Axial 2 millimeter thick images of the facial bones were obtained following 100 millilite rs nonionic IV contrast with sagittal and coronal reconstruction imaging. All CT scans are performed using dose optimization technique as appropriate and may include automated exposure control or mA/KV adjustment according to patient size. FINDINGS: Intracranial portion the examination is unremarkable. Age related changes are seen. No yennifer be or orbital content abnormality seen. Right periorbital soft tissue swelling is present. This is al l preseptal location. Mucosal thickening and fluid seen in the left side mastoid air cells. Right mas toid air cells are clear. No significant paranasal sinus finding. Midline and right side edematous/inflammatory changes are seen in the subcutaneous fatty tissues joel g the anterior maxilla and mandible. No abscess or drainable fluid collection identifiable. Dental de ping is present. No pathologic bone process seen. IMPRESSION: Right-sided soft tissue swelling and edema changes consistent with moderate severity andie lulitis. No abscess or drainable fluid collection. Patient has extensive dental decay is a potential source for the infectious/inflammatory soft tissue changes. Soft tissues are swollen around the right orbit but all changes are preseptal. No intraorbital abnorm ality. Mild left-sided mastoiditis.
--- NOTE | 2021-03-03 14:07 | RAD REPORT ---
EXAM DESCRIPTION: RAD - Chest Single View - 03/03/2021 12:33 pm CLINICAL HISTORY: COUGH COMPARISON: June 2020 TECHNIQUE: AP portable chest image was obtained 03/03/2021 12:33 pm . FINDINGS: Nipple shadow present lower right lung base. Interstitial markings are prominent. Pattern is not substantially different from comparison. Severity of baseline pattern could mask early edema o r infiltrate. Heart and vasculature are normal. No measurable pleural effusion and no pneumothorax. N o acute bony abnormality seen. No acute aortic findings suspected. IMPRESSION: No suspicious mass or consolidation. Prominent interstitial pattern could mask early edema or infiltrate.
[2021-03-03 15:18] VITALS: BP 170/68; TEMP 97.8; O2SAT 96
--- NOTE | 2021-03-04 08:45 | EKG ---
Test Date: 2021-03-03 Test Time: 12:03:38 Mental Health Director: VAUGHN MEASUREMENT RESULTS: Intervals: Rate: 99 MN: 184 QRSD: 82 QT: 382 QTc: 490 [place]: P: 60 MN: 184 QRS: -47 T: 76 INTERPRETIVE STATEMENTS: Normal sinus rhythm Left axis deviation Abnormal ECG Compared to ECG 11/18/2020 18:24:18 Left-axis deviation now present Electronically Signed On 03-04-21 08:43:20 CDT by Waqar Stark
== END 2021-03-03 15:11 | disposition short-term general hospital (02) ==
LOC: ER 11:12
DX: K04.7 Periapical abscess without sinus (principal); E11.9 Type 2 diabetes mellitus without complications; I10 Essential (primary) hypertension; Z20.822 Contact with and (suspected) exposure to COVID-19
CPT/HCPCS: 93005; 85025; 80048; 36415; 83735; 85610; 80076; 84484; 83880; 70487; 76377; 71045; U0003; Q9967; J2270; J0696; J7030; J2405; 96374; 96375; 99285

== ENCOUNTER 2021-04-04 09:42 | Emergency (ER) | payer OTHER ==
--- OUTSIDE RECORDS SUMMARY | 2021-04-04 09:55 | XMS REPORT | Continuity of Care Document ---
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[facility] diabetes diabetes [facility] - mellitus mellitus Memori a with foot with foot l ulcer ulcer [facility] Other Other Problem Active [facility] [...] [facility] Diabetes Diabetes Problem Active [...] St of of [facility] multiple [facility] sites [facility] 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 Medications Ordered Filled Start Stop Current Ordering Indication Dosage Frequency Signature Comments Components Source Medication Medication Date Date Medication? Clinician (SIG) Name Name Delmydarek De Santiagoaminoph 2019- No Chris 5ml [facility] en en 02-25 Km [facility] - 00:00: 00:00 Memoria 00 :00 [facility] Lisinopril Lisinopril Yes Chris [address] [facility] Km [facility] Lisinopril Lisinopril Yes Chris [address] [facility] Km [facility] Pantoprazol Pantoprazol Yes Chris [address] e Sodium e Sodium Km [facility] Metformin Metformin Yes Chris [address] [facility] [address] HCl HCl Km with a [facility] - meal [facility] Tramadol Tramadol Yes Chris as [facility] t HCl HCl Km directed [facility] - [facility] Plavix Plavix Yes Chris 1 tablet [facility] Atorvastati Atorvastati Yes Chris TAKE [address] [facility] [facility] n Calcium n Calcium Km TABLET BY [facility] - MOUTH AT [facility] BEDTIME [facility] HydrALAZINE HydrALAZINE Yes Chris [address] HCl HCl Km with food [facility] ent [facility] Procedures This patient has no known procedures. Encounters Start End Encounter Admission Attending Care Care Encounter Source Date/Time Date/Time Type Type Clinicians Facility Department ID 2021-03-15 2021-03-15 Orders Doctor SHARIFA [id number] 00:00:00 00:00:00 Only Unassigned, CLAU [id number] [place] [id number] 2021-03-07 2021-03-07 Transition Orlin Damon [id number] 00:00:00 00:00:00 of Care Janeth Kwong [id number] Henny [id number] 2021-03-03 2021-03-06 Hospital Marcelle Hernandez [id number] 16:42:00 15:52:00 Encounter Joel Jerez [id number] [id number] 2021-03-05 2021-03-05 Surgery Marcelle [id number] 13:53:00 16:01:00 Clau [id number] [facility] [id number] 2021-03-05 2021-03-05 Anesthesia Skyler Veloz [id number] 14:09:00 15:23:00 Event Jeremiah Schulte [id number] [facility] [id number] 2020-10-17 2020-10-17 Office Marialuisa [facility] [id number] 10:00:12 13:40:16 Visit Han Lyons [id number]7.2.686 Irine[place] [id number] [facility] 2019-04-20 2019-04-20 [facility] [id number] [facility] 13:00:00 13:00:00 [facility] Medicine Outpati ent Clinics 2019-04-09 2019-04-09 [facility] [id number] 10:46:00 10:46:00 [facility] Medicine Outpati ent Clinics 2019-03-17 2019-03-17 [facility] [id number] 11:16:00 11:16:00 [facility] Medicine Outpati ent Clinics 2019-03-09 2019-03-09 [facility] [id number] 09:17:00 09:17:00 [facility] Medicine Outpati ent Clinics 2019-02-25 2019-02-25 [facility] [id number] 09:30:00 09:30:00 [facility] Medicine Outpati ent Clinics 2019-01-22 2019-01-22 [facility] [id number] 16:32:00 16:32:00 [facility] Medicine Outpati ent Clinics 2018-12-25 2018-12-25 [facility] [id number] 16:16:00 16:16:00 t [facility] Outpati ent Clinics 2018-12-11 2018-12-11 [facility] [id number] 09:32:00 09:32:00 t [facility] Outpati ent Clinics 2018-12-09 2018-12-09 [facility] [id number] 15:59:00 15:59:00 [facility] Outpati ent Clinics 2018-12-01 2018-12-01 [facility] [id number] 16:57:00 16:57:00 [facility] Outpati ent Clinics 2018-11-24 2018-11-24 [facility] [id number] 14:15:00 14:15:00 [facility] Results This patient has no known results.
--- NOTE | 2021-04-04 13:50 | RAD REPORT ---
EXAM DESCRIPTION: RAD - Abdomen 1 View (KUB) - 04/04/2021 1:31 pm CLINICAL HISTORY: post PEG tube placement COMPARISON: Abdomen 1 View (KUB) dated 09/20/2020 FINDINGS: Nonobstructive bowel gas pattern. No acute osseous abnormality.Visualized lungs are unrema rkable.No abnormal calcifications. Injection of contrast through the patient's gastrostomy tube opaci fies the stomach. IMPRESSION: Nonobstructive bowel gas pattern. Gastrostomy tube tip in the stomach, confirmed with co ntrast.
--- NOTE | 2021-04-04 13:55 | EDPHYS ---
Physician Documentation [facility] Name: Juana Navarro Age: 60 yrs Sex: Female : 1960 Arrival Date: 04/04/2021 Time: 09:45 Bed 27 Private MD: ED Physician Francisco J Wolfe HPI: 04/04 13:05 This 60 yrs old Female presents to ER via Wheelchair with complaints of cp Problem With Feeding Tube. 13:05 Patient presents to ED with daughter. Daughter reports that gastrostomy tube has been cp leaking. Leakage noticed today. Daughter also reports cough that is chronic no change, denies fever. No other complaints expressed.. Historical: - Allergies: 10:18 No Known Allergies; kg - Home Meds: 10:18 metformin 500 mg Oral Tb24 1 tab once daily [Active]; atorvastatin Oral [Active]; kg Hydralazine Oral [Active]; lisinopril Oral [Active]; pantoprazole Oral [Active]; aspirin 81 mg Oral chew [Active]; - PMHx: 10:18 CVA; Diabetes - NIDDM; G Tube; Hypertension; nonverbal; NPO, aspiration; bed bound; kg - PSHx: 10:18 G tube placement; Frandy BKA; kg - Immunization history:: Adult Immunizations up to date, Client reports having NOT received the Covid vaccine. - Social history:: Smoking status: Patient/guardian denies using tobacco, but has a distant history of tobacco abuse. ROS: 13:10 Respiratory: Positive for cough, Negative for wheezing. cp 13:10 Constitutional: Negative for fever. cp 13:10 Neuro: Negative for altered mental status. 13:10 All other systems are negative. Exam: 13:10 Constitutional: The patient appears in no acute distress, alert, awake, non-toxic, well cp developed, frail. 13:10 Head/Face: Normocephalic, atraumatic. cp 13:10 Chest/axilla: Inspection: normal. 13:10 Cardiovascular: Rate: normal, Rhythm: regular. 13:10 Respiratory: the patient does not display signs of respiratory distress, Respirations: normal, Breath sounds: are clear throughout. 13:10 Abdomen/GI: Bowel sounds noted to all 4 quadrants. Abdomen soft nondistended. Abdomen nontender all 4 quadrants. Noted stoma left upper quadrant. Minimal erythema of the stoma. Gastrostomy tube in place but appears fractured and noted leakage.. Vital Signs: 12:19 BP 154 / 74; Pulse 70; Resp 16; Pulse Ox 100% ; vg1 13:04 BP 155 / 67; Pulse 70; Resp 17; Pulse Ox 95% on R/A; tw2 Procedures: 14:00 G-tube placement: a 16 Nigerien catheter was placed, placed by TAM May. cp MDM: 11:52 Patient medically screened. cp 13:55 Data reviewed: vital signs, nurses notes, radiologic studies, plain films, I have cp discussed the patient's presentation/case with the attending Emergency Department Physician; and as a result, I will discharge patient. 13:55 Test interpretation: by ED physician or midlevel provider: plain radiologic studies. cp Counseling: I had a detailed discussion with the patient and/or guardian regarding: the historical points, exam findings, and any diagnostic results supporting the discharge/admit diagnosis, to return to the emergency department if symptoms worsen or persist or if there are any questions or concerns that arise at home. 04/04 13:02 Order name: RICHARD RIVERA; Complete Time: 13:52 cp Administered Medications: No medications were administered Disposition: 14:05 Chart complete. cp Disposition Summary: 04/04/21 13:55 Discharge Ordered Location: Home cp Problem: new cp Symptoms: are resolved cp Condition: Stable cp Diagnosis - Encounter for attention to gastrostomy - replacement of gastrostomy tube cp Followup: cp - With: Emergency Department - When: As needed - Reason: Worsening of condition Discharge Instructions: - Discharge Summary Sheet cp - Gastrostomy Tube Replacement cp - Gastrostomy Tube Home Guide, Adult cp Forms: - Medication Reconciliation Form cp - Thank You Letter cp - Antibiotic Education cp - Prescription Opioid Use cp Addendum: 04/07/2021 07:01 Co-signature as Attending Physician, Francisco J Wolfe MD. r n 07:01 I agree with the assessment and plan of care. Attestation: The patient's history, exam r n findings, diagnostics, and a summary of any interventions or procedures was reviewed in detail with Mykel TURCIOS. Signatures: Dispatcher [employer] EDMS Francisco J Wolfe MD MD rn Page, Corey, PA PA cp Jacqui Philip RN RN kg
--- NOTE | 2021-04-04 13:55 | ER ---
Nurse's Notes [facility] Name: Juana Navarro Age: 60 yrs Sex: Female : 1960 Arrival Date: 04/04/2021 Time: 09:45 Bed 27 Private MD: Diagnosis: Encounter for attention to gastrostomy-replacement of gastrostomy tube Presentation: 04/04 10:15 Chief complaint: Patient's son or daughter states: hole in feeding tube. Coronavirus kg screen: Client denies travel out of the [place] in the last 14 days. At this time, unable to obtain information related to travel outside the [place] At this time, the client does not indicate any symptoms associated with coronavirus-19. Ebola Screen: Patient negative for fever greater than or equal to 101.5 degrees Fahrenheit, and additional compatible Ebola Virus Disease symptoms Patient denies exposure to infectious person. Patient denies travel to an Ebola-affected area in the 21 days before illness onset. Initial Sepsis Screen: Does the patient meet any 2 criteria? No. Patient's initial sepsis screen is negative. Does the patient have a suspected source of infection? No. Patient's initial sepsis screen is negative. Risk Assessment: Do you want to hurt yourself or someone else? Unable to obtain. Onset of symptoms was April 04, 2021. 10:15 Method Of Arrival: Wheelchair kg 10:15 Acuity: DAVID 4 kg Triage Assessment: 10:18 General: Appears in no apparent distress. Behavior is calm, cooperative, flat, quiet. kg Pain: Complains of pain in abdomen Unable to use pain scale. None verbal. Historical: - Allergies: 10:18 No Known Allergies; kg - Home Meds: 10:18 metformin 500 mg Oral Tb24 1 tab once daily [Active]; atorvastatin Oral [Active]; kg Hydralazine Oral [Active]; lisinopril Oral [Active]; pantoprazole Oral [Active]; aspirin 81 mg Oral chew [Active]; - PMHx: 10:18 CVA; Diabetes - NIDDM; G Tube; Hypertension; nonverbal; NPO, aspiration; bed bound; kg - PSHx: 10:18 G tube placement; Chin BKA; kg - Immunization history:: Adult Immunizations up to date, Client reports having NOT received the Covid vaccine. - Social history:: Smoking status: Patient/guardian denies using tobacco, but has a distant history of tobacco abuse. Screenin:22 Abuse screen: Denies threats or abuse. Denies injuries from another. Nutritional kg screening: No deficits noted. Tuberculosis screening: No symptoms or risk factors identified. Fall Risk None identified. No fall in past 12 months (0 pts). Secondary diagnosis (15 points) Chin BKA. No IV (0 pts). Ambulatory Aid- None/Bed Rest/Nurse Assist (0 pts). Gait- Normal/Bed Rest/Wheelchair (0 pts) Mental Status- Oriented to own ability (0 pts). Total Cohen Fall Scale indicates No Risk (0-24 pts). Assessment: 12:15 General: Appears in no apparent distress. comfortable, Behavior is calm, cooperative. vg1 Pain: Denies pain. Neuro: Level of Consciousness is awake, alert, obeys commands, Oriented to person, place, time, situation. Cardiovascular: Patient's skin is warm and dry. Respiratory: Airway is patent Respiratory effort is even, unlabored. GI: PEG tube in place, Site with drainage. clear drainage; torn midway through tubing. pt daughter stated tube split this morning. : No signs and/or symptoms were reported regarding the genitourinary system. EENT: No signs and/or symptoms were reported regarding the EENT system. Derm: Skin is pink, warm \T\ dry. Musculoskeletal: Amputation of CHIN BKA. 13:05 Reassessment: Patient appears in no apparent distress at this time. Patient and/or tw2 family updated on plan of care and expected duration. Pain level reassessed. 13:32 Reassessment: Patient appears in no apparent distress at this time. No changes from vg1 previously documented assessment. Patient denies pain at this time. 14:27 Reassessment: Patient appears in no apparent distress at this time. Patient is alert, vg1 oriented x 3, equal unlabored respirations, skin warm/dry/pink. Patient denies pain at this time. Vital Signs: 12:19 BP 154 / 74; Pulse 70; Resp 16; Pulse Ox 100% ; vg1 13:04 BP 155 / 67; Pulse 70; Resp 17; Pulse Ox 95% on R/A; tw2 ED Course: 09:45 Patient arrived in ED. as 10:18 Triage completed. kg 10:18 Arm band placed on right wrist. kg 10:22 Patient has correct armband on for positive identification. kg 11:47 Mykel Carrera PA is PHCP. cp 11:47 Francisco J Wolfe MD is Attending Physician. cp 12:02 Claudia Draper, RN is Primary Nurse. vg1 13:31 XRAY KUB In Process Unspecified. EDMS 14:27 No provider procedures requiring assistance completed. Patient did not have IV access vg1 during this emergency room visit. Administered Medications: No medications were administered Outcome: 13:55 Discharge ordered by . cp 14:27 Discharged to home via wheelchair, with family. vg1 14:27 Condition: stable 14:27 Discharge instructions given to patient, family, Instructed on discharge instructions, follow up and referral plans. Demonstrated understanding of instructions, follow-up care. 14:27 Patient left the ED. vg1 Signatures: Dispatcher [employer] EDMS Araceli Gallegos as Mykel Carrera PA PA cp Alison Scott RN RN tw2 Claudia Draper, RN RN vg1 Jacqui Philip RN RN kg
[2021-04-05 10:52] VITALS: BP 155/67; O2SAT 95
== END 2021-04-04 14:27 | disposition home or self-care (01) ==
LOC: ER 09:42
DX: K94.29 Other complications of gastrostomy (principal)
CPT/HCPCS: 74018; 99283

== ENCOUNTER 2023-03-23 19:37 | Emergency (ER) | payer OTHER ==
--- OUTSIDE RECORDS SUMMARY | 2023-03-23 19:46 | XMS REPORT | Continuity of Care Document ---
:1960 Author Organization [facility] t Address [address] [place] [address] Care Team Providers Name Role Phone PCP, PATIENT DOES NOT HAVE A Primary Care Physician Unavaila FIDE Hitchcock Attending Clinician Unavailable ANNIA JOSEPH Attending Clinician Unavailable Nelson MATIAS, Janeth Mejia Attending Clinician PERFECTO HESS Attending Clinician Unavailable Alina Dinero MD Attending Clinician Suzanne Smith DO Attending Clinician Doctor Unassigned, [place] Attending Clinician Unavailable Fide Hernandez DDS Attending Clinician Skyler Veloz MD Attending Clinician Jeremiah Schulte MD Attending Clinician MICHELL BALL Attending Clinician Unavailable Han Elam MD Attending Clinician HAN ELAM Attending Clinician Unavailable HAN ELAM Attending Clinician Unavailable Jessica Nieto Attending Clinician FIDE HERNANDEZ Admitting Clinician Unavailable SUZANNE SMITH Admitting Clinician Unavailable Suzanne Smith DO Admitting Clinician Mary ESPANAS, Fide Ellis Admitting Clinician Payers Payer Name Policy Type Policy Number Effective Date Expiration Date Юлия OLIVERA [facility] [id number] 2016 MEDICAID 00:00:00 Problems Condition Condition Condition Status Onset Resolution Last Treating Co mments Source Name Details Category Date Date Treatment Clinician Date Chronic Chronic Disease Active 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 00:00: [place] and and 00 Medical diastolic diastolic Bran ch heart heart failure failure Elevated Elevated Disease Active Unive rs brain brain 5-05 ity of natriure[place] nat[place] c peptide c peptide 00 [facility] (BNP) (BNP) Branch level level HERNANDEZ HERNANDEZ Disease Active Univers (dyspnea (dyspnea 5-04 ity of on on 00:00: [place] exertion) exertion) 00 [facility] Branch Pneumonia Pneumonia Disease Active Uni vers due to due to -04 ity of COVID-19 COVID-19 00:00: [place] virus virus 00 Medical Branch Acute Acute Disease Active Univers respirator respirator 5-04 it y of y failure y failure 00:00[place] with with 00 Medical hypoxia hypoxia Branch History of History of Disease Active U nivers CVA CVA 5-04 ity of (cerebrova (cerebrova 00:00: [place] scular scular 00 Medical accident) accident) Bran ch Dyslipidem Dyslipidem Disease Active U nivers ia ia 5-04 ity of 00:00: [place] 00 Medical Branch Acute on Acute on Disease Active Unive rs chronic chronic 5-04 ity of kidney kidney 00:00: [place] failure failure 00 Medical Branch Elevated Elevated Disease Active Unive rs troponin I troponin I 5-04 it y of level level 00:00: [place] 00 Medical Branch Type 2 Type 2 Disease Active Univers diabetes diabetes 5-04 ity of mellitus mellitus 00:00: [place] with other with other 00 Me dical specified specified Bran ch complicati complicati on on Hypoxia Hypoxia Disease Active Univers 5-03 ity of 00:00: [place] 00 Medical Branch Dysphagia Dysphagia Disease Active Uni vers due to old due to old 01-08 it y of stroke stroke 00:00: Medical Branch Facial Facial Disease Active Univers swelling swelling 03-03 ity of 00:00: Medical Branch Essential Essential Disease Active Overview: Univers hypertensi hypertensi 2-28 Formattin ity of on on 00:00: g of this [place] note Medical might be Branch different from the original. ICD10 Diagnosis Term Food Cart Attendant Utility Urinary Urinary Disease Active Univers tract tract 05-15 ity of infection, infection, 00:00: [place] site not site not 00 Medica l specified specified Bran ch Cerebral Cerebral Disease Active Overview: Un nicole thrombosis thrombosis 05-15 Formattin ity of 00:00: g of this [place] note Medical might be Branch different from the original. ICD10 Diagnosis Term Food Cart Attendant Utility Acute, but Acute, but Disease Active U nivers ill-define ill-define 05-13 it y of d, d, 00:00: [place] cerebrovas cerebrovas 00 Me dical cular cular Branch disease disease Muscle Muscle Disease Active Univers weakness weakness 05-13 ity of (generaliz (generaliz 00:00: [place] ed) ed) 00 Medical Branch Acute, but Acute, but Disease Active U nivers ill-define ill-define 05-13 it y of d, d, 00:00: [place] cerebrovas cerebrovas 00 Me dical cular cular Branch disease disease Hyperlipid Hyperlipid Problem Active C ommon emia, emia, Spirit unspecifie unspecifie - [facility] d d hyperlipid hyperlipid Marissa s emia type emia type [facility] Diabetes Diabetes Diagnosis Active Com mon 1.5, 1.5, Spirit managed as managed as - [facility] type 2 type 2 [facility] CVA, old, CVA, old, Problem Active Com mon hemiparesi hemiparesi Sp elizabeth s s - [facility] Essential Essential Problem Active Com mon hypertensi hypertensi Sp elizabeth on on - [facility] Non-pressu Non-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 foot with foot with Medi [facility] unspecifie unspecifie Ce nter d severity d severity Osteomyeli Osteomyeli Diagnosis Active Common tis, tis, Spirit unspecifie unspecifie - [facility] d d [facility] Type 2 Type 2 Problem Active Common diabetes diabetes Spirit mellitus mellitus - [facility] with foot with foot St ulcer ulcer [facility] Other Other Problem Active Common specified specified Spir it diabetes diabetes - CHI mellitus mellitus St with other with other Marissa kes specified specified Medi [place] complicati complicati Ce nter on on Non-pressu Non-pressu Problem Active C ommon re chronic re chronic Sp elizabeth ulcer of ulcer of - [facility] other part other part St of right of right [facility] foot foot Medical limited to limited to Ce nter breakdown breakdown of skin of skin CVA, old, CVA, old, Problem Active Com mon aphasia aphasia Spirit - [facility] Diabetes Diabetes Problem Active Commo n mellitus mellitus Spirit due to due to - [facility] underlying underlying St condition condition Luke s with foot with foot [facility] ulcer ulcer Center PEG PEG Problem Active Common (percutane (percutane Sp elizabeth ous ous - [facility] endoscopic endoscopic St gastrostom gastrostom Marissa kes y) y) Medical adjustment adjustment Ce nter /replaceme /replaceme nt/removal nt/removal Arthritis Arthritis Problem Active Com mon of of Spirit multiple multiple - 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 - [facility] Allergies, Adverse Reactions, Alerts Allergy Allergy Status Severity Reaction(s) Onset Inactive Treating Comm ents Source Name Type Date Date Clinician NO KNOWN Drug Active Univers ALLERGIE Class ity of S [place] [facility] Social History Social Habit Start Date Stop Date Quantity Comments Source History of tobacco Cigarette Smoker University of use [place] [facility] History SDOH University o f Alcohol Std Drinks [place] [facility] History SDOH University o f Alcohol Binge [place] [facility] History SDOH Social Unive rsity of [facility] Med ical Together Branch History SDOH Social Unive rsity of [facility] Medical Branch History SDOH Social Unive rsity of [facility] Medical Membership Branch History SDOH Social Unive rsity of [facility] Medical Meetings Branch History SDOH 2023-01-09 2023-01-09 1 University o f Alcohol Frequency 00:00:00 00:00:00 [place] M edical Branch History SDOH Social 2023-01-09 2023-01-09 5 Unive rsity of Connections Phone 00:00:00 00:00:00 [place] M edical Branch History SDOH Social 2023-01-09 2023-01-09 3 Unive rsity of Connections Living 00:00:00 00:00:00 [place] [facility] History SDOH 2023-01-09 2023-01-09 4 University o f Physical Activity 00:00:00 00:00:00 [place] M edical DPW Branch History SDOH 2023-01-09 2023-01-09 1 University o f Physical Activity 00:00:00 00:00:00 [place] M edical MPS Branch History SDOH 2023-01-09 2023-01-09 5 University o f Financial 00:00:00 00:00:00 [place] [facility] History SDOH Food 2023-01-09 2023-01-09 1 Univers ity of Worry 00:00:00 00:00:00 [place] [facility] History SDOH Food 2023-01-09 2023-01-09 1 Univers ity of Scarcity 00:00:00 00:00:00 [place] [facility] History SDOH 2023-01-09 2023-01-09 2 University o f Transport Med 00:00:00 00:00:00 [place] Medic al Branch History SDOH 2023-01-09 2023-01-09 2 University o f Transport Non-Med 00:00:00 00:00:00 [place] M edical Branch History SDOH 2023-01-09 2023-01-09 2 University o f Housing Unable to 00:00:00 00:00:00 [place] M edical Pay Branch History SDOH 2023-01-09 2023-01-09 1 University o f Housing Places 00:00:00 00:00:00 [place] Medi [place] Lived Branch History SDOH 2023-01-09 2023-01-09 2 University o f Housing Homeless 00:00:00 00:00:00 [place] Me dical Last Year Branch Exposure to 2022-12-29 2023-01-08 Yes University of SARS-CoV-2 (event) 00:00:00 02:49:00 [place] [facility] Alcohol intake 2023-01-08 2023-01-08 Lifetime University of 00:00:00 00:00:00 non-drinker [facility] (finding) Branch Cigarettes smoked 2021-03-03 2021-03-03 Univers ity of current (pack per 00:00:00 00:00:00 [facility] ) - Reported Branch Cigarette 2021-03-03 2021-03-03 University of pack-years 00:00:00 00:00:00 [facility] Tobacco use and 2021-03-03 2021-03-03 Smokeless Universit y of exposure 00:00:00 00:00:00 tobacco non-user [facility] Sex Assigned At [birth year] Universit y of 00:00:00 00:00:00 [facility] Smoking Status Start Date Stop Date Source Ex-smoker 2021-03-03 00:00:00 2021-03-03 00:00:00 Universi ty [facility] Unknown if ever smoked [facility] y [facility] Medications Ordered Filled Start Stop Current Ordering Indication Dosage Frequency Signature Comments Components Source Medication Medication Date Date Medication? Clinician (SIG) Name Name metoprolol 2022- Yes [id number] 12.5mg Take 0.5 Univers succinate 01-14 tablets by ity of XL 25 mg 24 00:00: 04:59 [place] hr tablet 00 :00 the [facility] for 30 days. metoprolol 2022- Yes [id number] 12.5mg Take 0.5 Univers succinate 01-14 tablets by ity of XL 25 mg 24 00:00: 04:59 [place] hr tablet 00 :00 the [facility] for 30 days. aspirin 81 Yes 81mg Take 81 mg U nivers mg chewable 5-08 through ity o f tablet 17:16: enteral [place] 06 tube Medical daily. Branch aspirin 81 0 Yes 81mg Take 81 mg U nivers mg chewable 5-08 through ity o f tablet 17:16: enteral [place] 06 tube Medical daily. Branch lisinopriL 2022- No 20mg Take 20 mg Univers 20 mg 5 05-08 by mouth ity of tablet 13:29: 00:00 daily. [place] 53 :00 [facility] lisinopriL 2022- Yes [id number] 10mg Take 1 Univers 10 mg 01-13-08 tablet by ity of tablet 00:00: 04:59 mouth in [place] 00 :00 Psychiatric for 30 days. lisinopriL 2022- Yes [id number] 10mg Take 1 Univers 10 mg 01-13 06-08 tablet by ity of tablet 00:00: 04:59 mouth in [place] 00 :00 Psychiatric for 30 days. metFORMIN Yes 500mg 500 mg, Univ ers (GLUCOPHAGE 01-12 Enteral, ity of ) tablet 13:00: BID MEALS, Eduardo as 500 mg 00 First dose Medical on Fri Branch 01/12/23 at 0800, Until Discontinu ed, Routine azithromyci 2022- No 500mg 500 mg, IV Univers n 01-10 05- Piggyback, ity of (ZITHROMAX) 17:00: 18:38 ONCE, 1 [place] 500 mg in 00 :00 dose, On Medica l NaCl 0.9% Fri01/10/23 Bran ch (NS) 250 mL at 1200, VIAL-MATE Administer IV over 60 piggyback Minutes, 250 mL
R dennys for Anti-Infec tive: Documented Infection< br>Documen viv Infection Site: Respirator y
Durat ion of Therapy: Other (see Comments) metoprolol Yes 12.5mg 12.5 mg, U nivers succinate 5-05 Oral, ity of XL (TOPROL 14:00: DAILY, [place] XL) tablet 00 First dose Med ical 12.5 mg on Fri Branch 01/10/23 at 0900, Until Discontinu ed, Routine azithromyci 2022- No 500mg 500 mg, U nivers n 01-09-05 Enteral, ity of (ZITHROMAX) 17:00: 12:53 Q24H, 2 [place] 100 mg/5 mL 00 :29 doses, Medica l suspension First dose Bra nch 500 mg on Prema 01/09/23 at 1200, Last dose on Fri01/10/23 at 1200, JOSH
Re ason for Anti-Infec tive: Empiric Therapy for Suspected Infection< br>Empiric Therapy Site: Respirator y
Durat ion of therapy: 72 hours atorvastati 2022-0 Yes 10mg 10 mg, Univ ers n (LIPITOR) 01-09 Enteral, ity of tablet 10 02:00: QHS, First [place] mg 00 dose on Medical Fri01/08/23 Branch at 2100, Until Discontinu ed, Routine enoxaparin 2022-0 Yes 40mg 40 mg, Unive rs (LOVENOX) 01-08 Subcutaneo ity of injection 22:00: us, DAILY, [place] 40 mg 00 First dose Medical on Fri01/08/23 at 1700, Until Discontinu ed, Routine FLUoxetine 0 Yes 20mg 20 mg, Unive rs (PROZAC) 01-08 Oral, ity of capsule 20 14:00: DAILY, [place] mg 00 First dose Medical on Fri01/08/23 at 0900, Until Discontinu ed, Routine aspirin 2022-0 Yes 81mg 81 mg, Univers chewable 01-08 Enteral, ity of tablet 81 14:00: DAILY, [place] mg 00 First dose Medical on Fri01/08/23 at 0900, Until Discontinu ed, Routine lisinopriL 0 202- No 20mg 20 mg, Univ ers (PRINIVIL,Z 01-08 05-04 Oral, ity of ESTRIL) 14:00: 22:45 DAILY, [place] tablet 20 00 :01 First dose Medi shil[place] mg on Fri01/08/23 at 0900, Until Discontinu ed, Routine hydrALAZINE 0 Yes 25mg 25 mg, Univ ers (APRESOLINE 01-08 Enteral, ity of ) tablet 25 13:00: BID, First [place] mg 00 dose on Medical Fri01/08/23 Branch at 0800, Until Discontinu ed, Routine chlorhexidi 2022-0 Yes 15mL 15 mL, Univ ers ne 01-08 Oral ity of (PERIDEX) 13:00: ([place] 0.12 % 00 Spit Out), Medical mouthwash BID, First Bran ch 15 mL dose on Fri01/08/23 at 0800, Until Discontinu ed, Routine Sliding 2022-0 Yes Subcutaneo Univ ers Scale 5-03 us, AC+HS, ity of Insulin-Reg 12:30: First dose [place] ular 00 on Wed Medical 01/08/23 at Branch 0730, Until Discontinu ed, Routine cefTRIAXone 2022- No 1000mg 1,000 mg, Univers (ROCEPHIN) 01-0807 IV ity of 1,000 mg in 09:45: 09:26 Piggyback, [place] NaCl 0.9% 00 :00 Q24H ABX, Medic al (NS) 100 mL 5 doses, Bran ch MINI-BAG First dose on Fri01/08/23 at 0445, Last dose on Fri01/12/23 at 0445, Administer over 30 Minutes, 100 mL
Reas on for Anti-Infec tive: Empiric Therapy for Suspected Infection< br>Empiric Therapy Site: Respirator y
Durat ion of therapy: 5 days azithromyci 2022- No 500mg 500 mg, IV Univers n 01-08 Piggyback, ity of (ZITHROMAX) 09:45: 19:09 Q24H ABX, [place] 500 mg in 00 :09 5 doses, Medica l NaCl 0.9% First dose Bran ch (NS) 250 mL on Fri VIAL-MATE 01/08/23 at IV 0445, Last piggyback dose on Fri01/12/23 at 0445, Administer over 60 Minutes, 250 mL
Reas on for Anti-Infec tive: Empiric Therapy for Suspected Infection< br>Empiric Therapy Site: Respirator y
Durat ion of therapy: 5 days dextrose Yes 250mL 250 mL, IV Un nicole 10% (D10W) 01-08 Infusion, ity of bolus 08:47: PRN - SEE [place] infusion 05 INSTRUCTIO Medic al 250 mL NS, Branch Administer over 60 Minutes, Other, If blood glucose is < or = 70 mg/dL and patient is unable to swallow or has mental status changes, Starting on Fri01/08/23 at 0347
If blood glucose is < or = 70 mg/dL and patient is unable to swallow or has mental status changes (Give glucagon order if patient needs fluid restrictio n): IF IV access available: Dextrose 10%. 1. 125 mL (? bag) of D10W IV infusion - equivalent to 12.5 g dextrose 2. Blood glucose - draw blood glucose 15 minutes after D10W Administra tion. 3. If blood glucose is < 80 mg/dL, repeat.
glucagon 2022-0 Yes 1mg 1 mg, Univers (GLUCAGEN -03 Intramuscu ity of DIAGNOSTIC 08:46: lar, PRN, [place] KIT) 59 Starting Medical injection 1 on Fri Branch mg 01/08/23 at 0346, Until Discontinu ed, JOSH, Blood Glucose < or = 70 mg/dL and patient is NPO, unable to swallow or has mental changes. dexamethaso 2022-0 Yes 6mg 6 mg, Unive rs ne sod phos -03 Intravenou it y of PF 08:45: s, DAILY, [place] injection 6 00 First dose Me dical mg on Fri Branch 01/08/23 at 0345, Until Discontinu ed, 1 mL dextrometho 2022-0 Yes 5mL 5 mL, Unive rs rphan-guaif 5-03 Oral, ity of enesin 08:34: Q6HPRN, [place] (ROBITUSSIN 12 Starting Medi shiloh DM) 10-100 on Fri Branch mg/5 mL 01/08/23 at solution 5 0334, mL Until Discontinu ed, Routine, Cough NaCl 0.9% 3-0 2023- No 500mL at 999 Univ ers (NS) bolus 01-08 05-03 mL/hr, 500 it y of infusion 06:45: 06:32 mL, IV [place] 500 mL 00 :00 Infusion, Medical ONCE, 1 Branch dose, On Fri01/08/23 at 0145, JOSH ondansetron 2022-0 Yes 4mg 4 mg, Slow Univers (ZOFRAN 5-03 IV Push, ity of (PF)) 06:17: Q6HPRN, [place] injection 4 48 Starting Medi shil[place] mg on Fri Branch 01/08/23 at 0117, Until Discontinu ed, Routine, Nausea and Vomiting (N/V) acetaminoph 2022-0 Yes 650mg 650 mg, Un nicole en 5-03 Oral, ity of (TYLENOL) 06:17: Q6HPRN, [place] tablet 650 28 Starting Medic al mg on Fri01/08/23 at 0117, Until Discontinu ed, Routine, Pain (scale 1-3) lisinopriL 2020-0 Yes 20mg Take 20 mg U nivers 20 mg 6-29 by mouth ity of tablet 20:52: daily. [address] aspirin 81 2020-0 Yes 81mg Take 81 mg U nivers mg chewable 6-29 through ity o f tablet 20:52: enteral [place] 35 tube Medical daily. [place] lisinopriL 0 Yes 20mg Take 20 mg U nivers 20 mg 6-29 by mouth ity of tablet 20:52: daily. [address] aspirin 81 0 Yes 81mg Take 81 mg U nivers mg chewable 6-29 through ity o f tablet 20:52: enteral [place] 35 tube Medical daily. [place] lisinopriL 0 Yes 20mg Take 20 mg U nivers 20 mg 6-29 by mouth ity of tablet 20:52: daily. [address] aspirin 81 2020-0 Yes 81mg Take 81 mg U nivers mg chewable 6-29 through ity o f tablet 20:52: enteral [place] 35 tube Medical daily. [place] lisinopriL 0 Yes 20mg Take 20 mg U nivers 20 mg 6-29 by mouth ity of tablet 20:52: daily. [address] aspirin 81 2020-0 Yes 81mg Take 81 mg U nivers mg chewable 6-29 through ity o f tablet 20:52: enteral [place] 35 tube Medical daily. [place] ceFEPIme Yes 2000mg 2,000 mg, Un nicole (MAXIPIME) 6-29 IV ity of 2,000 mg in 16:15: Piggyback, [place] NaCl 0.9% 00 Q12H ABX, Medic al (NS) 100 mL First dose Br anch piggyback (after last modificati on) on Fri03/06/21 at 1115, Until Discontinu ed, 100 mL
Reas on for Anti-Infec tive: Documented Infection< br>Documen viv Infection Site: HEENT
D uration of Therapy: 7 days ceFEPIme 0 Yes 2000mg 2,000 mg, Un nicole (MAXIPIME) 6-29 IV ity of 2,000 mg in 16:15: Piggyback, [place] NaCl 0.9% 00 Q12H ABX, Medic al (NS) 100 mL First dose Br anch piggyback (after last modificati on) on Fri03/06/21 at 1115, Until Discontinu ed, 100 mL
Reas on for Anti-Infec tive: Documented Infection< br>Documen viv Infection Site: HEENT
D uration of Therapy: 7 days lisinopriL 2020-0 Yes 20mg Take 20 mg U nivers 20 mg 6-29 by mouth ity of tablet 12:35: daily. [place] [address] Medical Branch aspirin 81 2020-0 Yes 81mg Take 81 mg U nivers mg chewable - through ity o f tablet 12:35: enteral [place] [address] tube Medical daily. Branch chlorhexidi 2020-0 Yes [id number] 15mL Swish and Univers ne 0.12 % 6-29 spit out ity of mouthwash 00:00: 15 mL 2 [place] [address] (two) Medical times Branch daily. chlorhexidi 2020-0 Yes [id number] 15mL Swish and Univers ne 0.12 % 6-29 spit out ity of mouthwash 00:00: 15 mL 2 [place] (two) Medical times Branch daily. chlorhexidi 2020-0 Yes [id number] 15mL Swish and Univers ne 0.12 % 6-29 spit out ity of mouthwash 00:00: 15 mL 2 [place] [address] (two) Medical times Branch daily. chlorhexidi 2020-0 Yes [id number] 15mL Swish and Univers ne 0.12 % 6-29 spit out ity of mouthwash 00:00: 15 mL 2 [place] (two) Medical times Branch daily. chlorhexidi 1-0 Yes [id number] 15mL Swish and Univers ne 0.12 % 6-29 spit out ity of mouthwash 00:00: 15 mL 2 [place] (two) Medical times Branch daily. chlorhexidi 2021-0 Yes [id number] 15mL Swish and Univers ne 0.12 % 6-29 spit out ity of mouthwash 00:00: 15 mL 2 [place] (two) Medical times Branch daily. amoxicillin 2020- No [id number] 1{tbl} Take 1 Univers -clavulanat -05 04- tablet by it y of e 00:00: 04:59 mouth 2 [place] (AUGMENTIN) 00 :00 (two) Medical 875-125 mg times Branch per tablet daily for 7 days. ibuprofen 2020- No [id number] 600mg Take 30 mL Univers 100 mg/5 mL 03-06- by mouth ity of oral 00:00: 04:59 every 6 [place] suspension 00 :00 (six) Medical hours as Branch needed for Pain (scale 1-3) or Alternate with [place] for pain scale 4-6 for up to 7 days. HYDROcodone 2020- No [id number] 7.5mg Take 15 mL Univers -acetaminop 03-06- by mouth 4 i ty of hen 7.5-325 00:00: 04:59 (four) Eduardo as mg/15 mL 00 :00 times Medical solution daily as Branch needed for Pain (scale 4-6) for up to 7 days. Indication s: acute pain amoxicillin 2020- No [id number] 1{tbl} Take 1 Univers -clavulanat -05 04- tablet by it y of e 00:00: 04:59 mouth 2 [place] (AUGMENTIN) 00 :00 (two) Medical 875-125 mg times Branch per tablet daily for 7 days. ibuprofen 2020- No [id number] 600mg Take 30 mL Univers 100 mg/5 mL 03-06- by mouth ity of oral 00:00: 04:59 every 6 [place] suspension 00 :00 (six) Medical hours as Branch needed for Pain (scale 1-3) or Alternate with [place] for pain scale 4-6 for up to 7 days. HYDROcodone 2020-2020- No [id number] 7.5mg Take 15 mL Univers -acetaminop 03-06-07 by mouth 4 i ty of hen 7.5-325 00:00: 04:59 (four) Eduardo as mg/15 mL 00 :00 times Medical solution daily as Branch needed for Pain (scale 4-6) for up to 7 days. Indication s: acute pain amoxicillin 2020- No [id number] 1{tbl} Take 1 Univers -clavulanat 03-06 tablet by it y of e 00:00: 04:59 mouth 2 [place] (AUGMENTIN) 00 :00 (two) Medical 875-125 mg times Branch per tablet daily for 7 days. ibuprofen 2020- No [id number] 600mg Take 30 mL Univers 100 mg/5 mL 03-06 by mouth ity of oral 00:00: 04:59 every 6 [place] suspension 00 :00 (six) Medical hours as Branch needed for Pain (scale 1-3) or Alternate with [place] for pain scale 4-6 for up to 7 days. HYDROcodone 2020- No [id number] 7.5mg Take 15 mL Univers -acetaminop 03-06 by mouth 4 i ty of hen 7.5-325 00:00: 04:59 (four) Eduardo as mg/15 mL 00 :00 times Medical solution daily as Branch needed for Pain (scale 4-6) for up to 7 days. Indication s: acute pain lactated 2020- No 1000mL at 75 Unive rs ringers IV 03-05 mL/hr, ity of infusion 20:45: 23:33 1,000 mL, Eduardo as 1,000 mL 00 :36 IV Medical Infusion, Branch CONTINUOUS , Starting 03/05/21 at 1545, Until Fri03/05/21 at 1833, Routine, PACU ondansetron 2020- No Slow IV Un nicole (ZOFRAN 03-05 Push, ONCE ity o f (PF)) 20:03: 20:23 INTRA [place] injection 00 :51 PROCEDURE, Medi shiloh Starting Branch 03/05/21 at 1503, Until 03/05/21 at 1523, Routine, Intra-op ketorolac 2020- No Slow IV Univ ers (TORADOL) 03-05 Push, ONCE ity of injection 20:03: 20:23 INTRA [place] 00 :51 PROCEDURE, Medical Starting Branch 03/05/21 at 1503, Until 03/05/21 at 1523, Routine, Intra-op lidocaine 2020- No PRN, Univers 2% - 03-05 Starting ity of epinephrine 19:56: 20:48 Mon [place] 1:100,000 00 :18 03/05/21 at Medi shiloh syringe 1456, Branch Until 03/05/21 at 1548, Routine, Intra-op glycopyrrol 2020- No Intravenou Univers ate 03-05 s, ONCE ity of (ROBINUL) 19:53: 20:23 INTRA [place] injection 00 :51 PROCEDURE, Medi shiloh Starting Branch 03/05/21 at 1453, Until 03/05/21 at 1523, Routine, Intra-op ePHEDrine 2020- No Slow IV Univ ers 25 mg/5 mL 03-05 Push, ONCE it y of (5 mg/mL) 19:50: 20:23 INTRA [place] syringe 00 :51 PROCEDURE, Medica l Starting Branch [facility] 03/05/21 at 1450, Until 03/05/21 at 1523, Routine, Intra-op lactated 2020- No IV Univers ringers IV 03-05 Infusion, ity of infusion 19:14: 20:23 CONTINUOUS [place] 00 :51 PRN, Medical Starting Branch 03/05/21 at 1414, Until Fri03/05/21 at 1523, Routine, Intra-op FENTanyl PF 2020- No Epidural, Univers (SUBLIMAZE 03-05 ONCE INTRA it y of (PF)) 19:14: 20:23 PROCEDURE, [place] injection 00 :51 Starting Medica l [facility] [facility] at 1414, Until Discontinu ed, Routine, Intra-op lidocaine 2020- No Slow IV Univ ers 1% 03-05 Push, ONCE ity of (XYLOCAINE) 19:14: 20:23 [place] 100 mg/10 00 :51 PROCEDURE, [facility] shiloh mL (1 %) Starting Branch injection 03/05/21 at 1414, Until Discontinu ed, Routine, Intra-op rocuronium 2020- No IV Push, Un nicole (ZEMURON) 03-05 ONCE INTRA ity of injection 19:14: 20:23 PROCEDURE, [place] 00 :51 Starting [facility] 03/05/21 at 1414, Until Discontinu ed, Routine, Intra-op etomidate 2020- No Slow IV Univ ers (AMIDATE) 03-05 Push, ONCE ity of injection 19:14: 20:23 INTRA [place] 00 :51 PROCEDURE, [facility] 03/05/21 at 1414, Until Discontinu ed, Routine, Intra-op phenylephri 2020- No 1[drp] 1 Drop, Univers ne 03-05 Both Eyes, ity of (EHSAN-SYNEPH 12:15: 14:11 ONCE, 1 [place] 2.5 % 00 :00 dose, Mon Med ical ophthalmic 03/05/21 at [facility] drops 1 0715, Drop Routine tropicamide 2020- No 1[drp] 1 Drop, Univers (MYDRIACYL) 03-05 Both Eyes, i ty of 1 % 12:15: 14:11 ONCE, 1 [place] ophthalmic 00 :00 dose, Mon Medi [place] drops 1 03/05/21 at [place] Drop 0715, Routine proparacain 2020- No 1[drp] 1 Drop, Univers e (ALCAINE) 03-05 Both Eyes, i ty of 0.5 % 12:15: 14:11 ONCE, 1 [place] ophthalmic 00 :00 dose, Mon Medi shil[place] solution 1 03/05/21 at [facility] Drop 0715, Routine morpHINE 2020- No 2mg 2 mg, Slow Un nicole injection 2 03-05 IV Push, ity of mg 01:09: 01:08 [facility] [place] 18 :18 Starting [facility] 03/04/21 at 2008, Until Fri03/06/21 at 2007, Routine, Pain (scale 7-10) morpHINE 2020- No 2mg 2 mg, Slow [place] injection 2 03-05 IV Push, ity of mg 01:09: 01[facility]08 [facility] [place] 18 :18 Starting [facility] 03/04/21 at 2008, Until Fri03/06/21 at 2007, Routine, Pain (scale 7-10) HYDROcodone 2020- No 7.5mg 7.5 mg, U nivers -acetaminop 03-05 Oral, ity of hen (HYCET) 01:08: 01:07 Q6[place]PRN, [place] 7.5-325 42 :42 Starting Medical mg/15 mL [place] [facility] solution 03/04/21 at 7.5 mg 2007, Until Fri03/07/21 at 2006, Routine, Pain (scale 4-6) HYDROcodone 2020-0 202- No 7.5mg 7.5 mg, U nivers -acetaminop 03-05 Oral, ity of hen (HYCET) 01:08: 01:07 [place]PRN[place] 7.5-325 42 :42 Starting Medical mg/15 mL [place] solution 03/04/21 at 7.5 mg 2007, Until Fri03/07/21 at 2006, Routine, Pain (scale 4-6) ibuprofen 2020-0 202- No 600mg 600 mg, Uni vers (ADVIL 03-05 Oral, ity of CHILDREN'S) 01:08: 01:07 Q6[place]PRN[place] 100 mg/5 mL 10 :10 Starting Medi shiloh oral [place] suspension 03/04/21 at 600 mg 2007, Until Fri03/07/21 at 2006, Routine, Pain (scale 1-3) ibuprofen 2020-0 202- No 600mg 600 mg, Uni vers (ADVIL 03-05 Oral, ity of CHILDREN'S) 01:08: 01:07 Q6HPRN, [place] 100 mg/5 mL 10 :10 Starting Medi shiloh oral [place] [facility] suspension 03/04/21 at 600 mg 2007, Until Fri03/07/21 at 2006, Routine, Pain (scale 1-3) scopolamine 2020-0 Yes 1.5mg 1.5 mg, Un [place] transdermal 03-04 Topical, ity of (TRANSDERM- 17:30: Administer [place] SCOP) patch 00 over 72 Medic al 1.5 mg Hours, Branch Q72H, First dose on 03/04/21 at 1230, Until Discontinu ed, Routine scopolamine 2020-0 Yes 1.5mg 1.5 mg, Un [place] transdermal 03-04 Topical, ity of (TRANSDERM- 17:30: Administer [place] SCOP) patch 00 over 72 Medic al 1.5 mg Hours, Branch Q72H, First dose on 03/04/21 at 1230, Until Discontinu ed, Routine lisinopriL Yes 20mg 20 mg, Unive rs (PRINIVIL,Z 03-04 Enteral, ity of ESTRIL) 14:00: DAILY, [place] tablet 20 00 First dose Medi [place] mg on [place] Branch 03/04/21 at 0900, Until Discontinu ed, Routine aspirin Yes 81mg 81 mg, Univers chewable 03-04 Enteral, ity of tablet 81 14:00: DAILY, [place] mg 00 First dose Medical on [place] [facility] 03/04/21 at 0900, Until Discontinu ed, Routine lisinopriL Yes 20mg 20 mg, Unive rs (PRINIVIL,Z 03-04 Enteral, ity of ESTRIL) 14:00: DAILY, [place] tablet 20 00 First dose Medi [place] mg on [place] Branch 03/04/21 at 0900, Until Discontinu ed, Routine aspirin Yes 81mg 81 mg, Univers chewable 03-04 Enteral, ity of tablet 81 14:00: DAILY, [place] mg 00 First dose Medical on [place] [facility] 03/04/21 at 0900, Until Discontinu ed, Routine magnesium 2020- No 4g 4 g, IV Univ ers sulfate in 03-04 Piggyback, it y of water 4 08:30: 08:53 ONCE, 1 [place] gram/50 mL 00 :00 dose, [place] Medi shiloh (8 %) IV 03/04/21 at Branc h Piggyback 4 0330, g Routine ceFEPIme 2020- No 2000mg 2,000 mg, U nivers (MAXIPIME) 03-04 IV ity of 2,000 mg in 04:15: 13:16 Piggyback, [place] NaCl 0.9% 00 :38 Q12H ABX, Medic al (NS) 100 mL First dose Br anch MINI-BAG on 03/03/21 at 2315, Until Discontinu ed, 100 mL
Reas on for Anti-Infec tive: Documented Infection< br>Documen viv Infection Site: HEENT<br&g t;Duration of Therapy: 7 days iohexoL 2020- No [id number] 50mL 50 mL, Un nicole (OMNIPAQUE 03-04 Intravenou it y of 300-50 mL)) 03:30: 03:31 s, ONCE, 1 [place] injection 00 :00 dose, Sat Medic al 50 mL 03/03/21 at Branch 2230, Routine Vancomycin Yes 15mg/kg 750 mg Un [place] 750 mg in 03-04 (rounded ity of NaCl 0.9% 03:15: from 697.5 [place] (NS) 250 mL 00 mg = 15 Medic al VIAL-MATE mg/kg Branch ?46.5 kg), IV Piggyback, Q12H ABX, First dose on 03/03/21 at 2215, Until Discontinu ed, 250 mL
Reas on for Anti-Infec tive: Documented Infection< br>Docu mented Infection Site: Skin / Soft Tissue
Duration of Therapy: 7 days Vancomycin Yes 15mg/kg 750 mg Un [place] 750 mg in 03-04 (rounded ity of NaCl 0.9% 03:15: from 697.5 [place] (NS) 250 mL 00 mg = 15 Medic al VIAL-MATE mg/kg Branch ?46.5 kg), IV Piggyback, Q12H ABX, First dose on 03/03/21 at 2215, Until Discontinu ed, 250 mL
Reas on for Anti-Infec tive: Documented Infection< br>Docu mented Infection Site: Skin / Soft Tissue
Duration of Therapy: 7 days metroNIDAZO Yes 500mg 500 mg, IV Univers LE in NaCl 03-04 Infusion, ity of (iso-os) 02:15: Q8H ABX, [place] (FLAGYL 00 First dose Medica l I.V.) RTU on [place] Branch IV infusion 03/03/21 at 500 mg 2115, Until Discontinu ed, 100 mL
Reas on for Anti-Infec tive: Documented Infection< br>Documen viv Infection Site: HEENT
D uration of Therapy: 7 days metroNIDAZO Yes 500mg 500 mg, IV Univers LE in NaCl 03-04 Infusion, ity of (iso-os) 02:15: Q8H ABX, [place] (FLAGYL 00 First dose Medica l I.V.) RTU on Sat Branch IV infusion 03/03/21 at 500 mg 2114, Until Discontinu ed, 100 mL
Reas on for Anti-Infec tive: Documented Infection< br>Documen viv Infection Site: HEENT
D uration of Therapy: 7 days cefTRIAXone No 1000mg 1,000 mg, Univers (ROCEPHIN) 03-04 IV ity of 1,000 mg in 02:15: 03:09 [place], [place] NaCl 0.9% 00 :46 Q24H ABX, Medic al (NS) 50 mL First dose Bra nch MINI-BAG on 03/03/21 at 2114, Until Discontinu ed, 50 mL
R dennys for Anti-Infec tive: Documented Infection< br>Documen viv Infection Site: HEENT<br&g t;Duration of Therapy: 7 days Sliding Yes Subcutaneo Univ ers Scale - us, TID ity of Insulin - 02:00: MEALS+HS, Eduardo as Lispro 00 First dose Medical (HumaLOG) + on Sat Branch Fsbg 03/03/21 at Testing 2100, Until Discontinu ed, Routine FLUoxetine Yes 20mg 20 mg, Unive rs (PROZAC) 20 03-04 Enteral, ity of mg/5 mL (4 02:00: QHS, First [place] mg/mL) 00 dose on Medical solution 20 Sat Branch mg 03/03/21 at 2100, Until Discontinu ed, Routine atorvastati Yes 10mg 10 mg, Univ ers n (LIPITOR) 03-04 Enteral, ity of tablet 10 02:00: QHS, First [place] mg 00 dose on Medical Sat Branch 03/03/21 at 2100, Until Discontinu ed, Routine Sliding Yes Subcutaneo Univ ers Scale - us, TID ity of Insulin - 02:00: MEALS+HS, [place] as Lispro 00 First dose Medical (HumaLOG) + on Sat Branch Fsbg 03/03/21 at Testing 2100, Until Discontinu ed, Routine FLUoxetine 2021-0 Yes 20mg 20 mg, Unive rs (PROZAC) 20 03-04 Enteral, ity of mg/5 mL (4 02:00: QHS, First [place] mg/mL) 00 dose on Medical solution 20 Sat Branch mg 03/03/21 at 2100, Until Discontinu ed, Routine atorvastati Yes 10mg 10 mg, Univ ers n (LIPITOR) 03-04 Enteral, ity of tablet 10 02:00: QHS, First [place] mg 00 dose on Medical Sat Branch 03/03/21 at 2100, Until Discontinu ed, Routine glucagon Yes 1mg 1 mg, Univers (GLUCAGEN 03-04 Intramuscu ity of DIAGNOSTIC 01:49: lar, PRN, [place] KIT) 36 Starting Medical injection 1 Sat Branch mg 03/03/21 at 2048, Until Discontinu ed, JOSH, Blood Glucose < or = 70 mg/dL and patient is unable to swallow or has mental changes. dextrose 50 0 Yes 25mL 25 mL, Univ ers % in water 03-04 Slow IV ity of (D50W) 01:49: Push, PRN, [place] injection 36 Starting Medica l 25 mL Sat Branch 03/03/21 at 2048, Until Discontinu ed, JOSH, Blood Glucose < or = 70 mg/dL and patient is unable to swallow or has mental status changes. glucagon Yes 1mg 1 mg, Univers (GLUCAGEN 03-04 Intramuscu ity of DIAGNOSTIC 01:49: lar, PRN, [place] KIT) 36 Starting Medical injection 1 Sat Branch mg 03/03/21 at 2048, Until Discontinu ed, JOSH, Blood Glucose < or = 70 mg/dL and patient is unable to swallow or has mental changes. dextrose 50 0 Yes 25mL 25 mL, Univ ers % in water 03-04 Slow IV ity of (D50W) 01:49: Push, PRN, [place] injection 36 Starting Medica l 25 mL Sat Branch 03/03/21 at 2048, Until Discontinu ed, JOHS, Blood Glucose < or = 70 mg/dL and patient is unable to swallow or has mental status changes. PROZAC 20 2020-0 2020- No None Univers MG ORAL CAP 03-04 Entered ity of 01:41: 00:00 [place] 02 : Medical Branch MIRAPEX 2020- No None Univers 0.25 MG 03-04 Entered ity of ORAL TAB 01:41: 00:00 [place] 02 : Medical Branch PROZAC 20 2020- No None Univers MG ORAL CAP 03-04 Entered ity of 01:41: 00:00 [place] 02 :00 Medical Branch MIRAPEX 2020- No None Univers 0.25 MG 03-04 Entered ity of ORAL TAB 01:41: 00:00 [place] 02 :00 Medical Branch lactated Yes 1000mL at 50 Univer s ringers IV 6-27 mL/hr, ity of infusion 01:00: 1,000 mL, [place] 1,000 mL 00 IV Medical Infusion, Branch CONTINUOUS , Starting 03/03/21 at 1999, Until Discontinu ed, Routine lactated Yes 1000mL at 50 Univer s ringers IV 6-27 mL/hr, ity of infusion 01:00: 1,000 mL, [place] 1,000 mL 00 IV Medical Infusion, Branch CONTINUOUS , Starting 03/03/21 at 1999, Until Discontinu ed, Routine lisinopriL Yes 20mg Take 20 mg U nivers 20 mg 2-09 by mouth ity of tablet 16:24: daily. [address] lisinopriL Yes 20mg Take 20 mg U nivers 20 mg 2-09 by mouth ity of tablet 16:24: daily. [address] atorvastati Yes Univer s n 10 mg - ity of tablet 00:00: [address] hydrALAZINE Yes Univer s 25 mg - ity of tablet 00:00: [address] pantoprazol Yes Univer s e 40 mg EC 10-06 ity of tablet 00:00: [address] atorvastati Yes Univer s n 10 mg 10-06 ity of tablet 00:00: [address] hydrALAZINE Yes 25mg Take 25 mg Univers 25 mg -29 through ity of tablet 00:00: enteral [place] 00 tube 2 Medical (two) Branch times daily. pantoprazol 2020-0 Yes Univer s e 40 mg EC 1-29 ity of tablet 00:00: [place] [facility] atorvastati 2020-0 Yes Univer s n 10 mg -29 ity of tablet 00:00: [place] [facility] hydrALAZINE 2020-0 Yes 25mg Take 25 mg Univers 25 mg -29 through ity of tablet 00:00: enteral [place] 00 tube 2 Medical (two) Branch times daily. pantoprazol 0 Yes Univer s e 40 mg EC 1-29 ity of tablet 00:00: [place] [facility] atorvastati 0 Yes Univer s n 10 mg -29 ity of tablet 00:00: [place] [facility] hydrALAZINE 2020-0 Yes 25mg Take 25 mg Univers 25 mg -29 through ity of tablet 00:00: enteral [place] 00 tube 2 Medical (two) Branch times daily. pantoprazol 0 Yes Univer s e 40 mg EC 1-29 ity of tablet 00:00: [place] [facility] atorvastati 0 Yes Univer s n 10 mg -29 ity of tablet 00:00: [place] [facility] hydrALAZINE 2020-0 Yes 25mg Take 25 mg Univers 25 mg -29 through ity of tablet 00:00: enteral [place] 00 tube 2 Medical (two) Branch times daily. pantoprazol 2020-0 Yes Univer s e 40 mg EC 1-29 ity of tablet 00:00: [place] [facility] atorvastati 2020-0 Yes Univer s n 10 mg 1-29 ity of tablet 00:00: [place] [facility] hydrALAZINE 2020-0 Yes 25mg Take 25 mg Univers 25 mg -29 through ity of tablet 00:00: enteral [place] 00 tube 2 Medical (two) Branch times daily. pantoprazol 2020-0 Yes Univer s e 40 mg EC 1-29 ity of tablet 00:00: [place] [facility] atorvastati 2020-0 Yes Univer s n 10 mg 1-29 ity of tablet 00:00: [place] [facility] hydrALAZINE 2020-0 Yes 25mg Take 25 mg Univers 25 mg 1-29 through ity of tablet 00:00: enteral 00 tube 2 Medical (two) Branch times daily. pantoprazol Yes Univer s e 40 mg EC 1-29 ity of tablet 00:00: [place] [facility] atorvastati Yes Univer s n 10 mg -29 ity of tablet 00:00: [place] [facility] hydrALAZINE 0 Yes 25mg Take 25 mg Univers 25 mg -29 through ity of tablet 00:00: enteral [place] 00 tube 2 Medical (two) Branch times daily. pantoprazol Yes Univer s e 40 mg EC 1- ity of tablet 00:00: [place] [facility] atorvastati Yes Univer s n 10 mg - ity of tablet 00:00: [place] [facility] hydrALAZINE 0 Yes Univer s 25 mg -29 ity of tablet 00:00: [place] [facility] pantoprazol Yes Univer s e 40 mg EC - ity of tablet 00:00: [place] [facility] iohexol 2020-0 2020- No 120mL 120 mL, Unive rs (OMNIPAQUE 04-04- Intravenou it y of 350 18:15: 17:45 s, ONCE, 1 [place] BULK-150 00 :00 dose, Tue Medica l mL) 04/04/20 at Branch injection 1315, 120 mL Routine Acetaminoph Acetaminoph 2018-0 2019- No Chris 5ml Common en en 02-[address] [facility] 00:00: 00:00 - [facility] 00 :00 [facility] PLAVIX 75 Yes 1 by mouth Un nicole MG ORAL TAB 6-12 every day ity of 00:00: [place] [facility] PLAVIX 75 2006- Yes 1 by mouth Un nicole MG ORAL TAB 6-12 every day ity of 00:00: [place] [facility] PLAVIX 75 2006-0 Yes 1 by mouth Un nicole MG ORAL TAB 6-12 every day ity of 00:00: [place] [facility] PLAVIX 75 2006- Yes 1 by mouth Un nicole MG ORAL TAB 6-12 every day ity of 00:00: Medical Branch PLAVIX 75 2020- No 1 by mouth U nivers MG ORAL TAB 6-03-03 every day it y of 00:00: 00:00 [place] 00 :00 [facility] Branch PLAVIX 75 2020- No 1 by mouth U nivers MG ORAL TAB 6-12 - every day it y of 00:00: 00:00 [place] 00 :00 [facility] PROZAC 20 Yes None Univers MG ORAL CAP 6-10 Entered ity o f 19:53: [address] MIRAPEX Yes None Univers 0.25 MG 6-10 Entered ity of ORAL TAB 19:53: [address] PROZAC 20 Yes None Univers MG ORAL CAP 6-10 Entered ity o f 19:53: [address] [facility] None Univers 0.25 MG 6-10 Entered ity of ORAL TAB 19:53: [address] PROZAC 20 Yes None Univers MG ORAL CAP 6-10 Entered ity o f 19:53: [address] MIRAPEX Yes None Univers 0.25 MG 6-10 Entered ity of ORAL TAB 19:53: [address] PROZAC 20 Yes None Univers MG ORAL CAP 6-10 Entered ity o f 19:53: [address] [facility] Yes None Univers 0.25 MG 6-10 Entered ity of ORAL TAB 19:53: [address] PRAMIPEXOLE Yes 1 Tab Oral Univers 0.25 MG 3-02 once daily ity of ORAL TAB 00:00: [address] [place] [address] ASPIRIN 325 Yes 1 Tab Oral Univers MG ORAL 3-02 DAILY ity of TBEC 00:00: [address] CLOPIDOGREL Yes 1 Tab Oral Univers 75 MG ORAL 3-02 DAILY ity of TAB 00:00: [address] METFORMIN 2006- Yes 1 Tab Oral Un nicole 500 MG ORAL 3-02 BID MEALS ity of TAB 00:00: [address] [place] [address] ENALAPRIL Yes 1 Tab Oral Un [place] MALEATE 10 3-02 DAILY ity of MG ORAL TAB 00:00: [address] FLUOXETINE Yes 1 Cap Oral U nivers 20 MG ORAL 3-02 DAILY ity of CAP 00:00: [place] [facility] FOLIC ACID 2007-0 Yes 1 Tab Oral U nivers 1 MG ORAL 3-02 DAILY ity of TAB 00:00: Medical Branch PYRIDOXINE 2007-0 Yes 1 Tab Oral U nivers 50 MG ORAL 3-02 DAILY ity of TAB 00:00: Medical Branch METFORMIN 2007-0 Yes 1 Tab Oral Un nic[place] 500 MG ORAL 3-02 BID MEALS ity of TAB 00:00: Medical Branch FLUOXETINE 2007-0 Yes 1 Cap Oral U nivers 20 MG ORAL 3-02 DAILY ity of CAP 00:00: Medical Branch METFORMIN 2006-0 Yes 1 Tab Oral Un nicole 500 MG ORAL 3-02 BID MEALS ity of TAB 00:00: Medical Branch FLUOXETINE 2006-0 Yes 1 Cap Oral U nivers 20 MG ORAL 3-02 DAILY ity of CAP 00:00: Medical Branch PRAMIPEXOLE 2006-0 Yes 1 Tab Oral Univers 0.25 MG 3-02 once daily ity of ORAL TAB 00:00: Medical Branch ASPIRIN 325 2006-0 Yes 1 Tab Oral Univers MG ORAL 3-02 DAILY ity of TBEC 00:00: Medical Branch METFORMIN 2006-0 Yes 1 Tab Oral Un nicole 500 MG ORAL 3-02 BID MEALS ity of TAB 00:00: Medical Branch CLOPIDOGREL 2007-0 Yes 1 Tab Oral Univers 75 MG ORAL 3-02 DAILY ity of TAB 00:00: Medical Branch FLUOXETINE 2006-0 Yes 1 Cap Oral U nivers 20 MG ORAL 3-02 DAILY ity of CAP 00:00: Medical Branch METFORMIN 2007-0 Yes 1 Tab Oral Un nicole 500 MG ORAL 3-02 BID MEALS ity of TAB 00:00: Medical Branch METFORMIN 2007-0 Yes 1 Tab Oral Un nic[place] 500 MG ORAL 3-02 BID MEALS ity of TAB 00:00: Medical Branch FLUOXETINE 2006-0 Yes 1 Cap Oral U nivers 20 MG ORAL 3-02 DAILY ity of CAP 00:00: Medical Branch ENALAPRIL 2007-0 Yes 1 Tab Oral Un nicole MALEATE 10 3-02 DAILY ity of MG ORAL TAB 00:00: Medical Branch FLUOXETINE 2006-0 Yes 1 Cap Oral U nivers 20 MG ORAL 3-02 DAILY ity of CAP 00:00: [place] [facility] METFORMIN 2007-0 Yes 1 Tab Oral Un nicole 500 MG ORAL 3-02 BID MEALS ity of TAB 00:00: [place] [facility] FLUOXETINE 2007-0 Yes 1 Cap Oral U nivers 20 MG ORAL 3-02 DAILY ity of CAP 00:00: Medical Branch FOLIC ACID 2007-0 Yes 1 Tab Oral U nivers 1 MG ORAL 3-02 DAILY ity of TAB 00:00: Medical Branch PYRIDOXINE 2007-0 Yes 1 Tab Oral U nivers 50 MG ORAL 3-02 DAILY ity of TAB 00:00: [place] [facility] METFORMIN 2007-0 Yes 1 Tab Oral Un nicole 500 MG ORAL 3-02 BID MEALS ity of TAB 00:00: Medical Branch FLUOXETINE 2007-0 Yes 1 Cap Oral U nivers 20 MG ORAL 3-02 DAILY ity of CAP 00:00: Medical Branch METFORMIN 2007-0 Yes 1 Tab Oral Un [place] 500 MG ORAL 3-02 BID MEALS ity of TAB 00:00: Medical Branch FLUOXETINE 2007-0 Yes 1 Cap Oral U nivers 20 MG ORAL 3-02 DAILY ity of CAP 00:00: Medical Branch PRAMIPEXOLE 2007-0 Yes 1 Tab Oral Univers 0.25 MG 3-02 once daily ity of ORAL TAB 00:00: Medical Branch ASPIRIN 325 2007-0 Yes 1 Tab Oral Univers MG ORAL 3-02 DAILY ity of TBEC 00:00: Medical Branch CLOPIDOGREL 2007-0 Yes 1 Tab Oral Univers 75 MG ORAL 3-02 DAILY ity of TAB 00:00: Medical Branch METFORMIN 2007-0 Yes 1 Tab Oral Un nicole 500 MG ORAL 3-02 BID MEALS ity of TAB 00:00: [place] [facility] ENALAPRIL 2007-0 Yes 1 Tab Oral Un nicole MALEATE 10 3-02 DAILY ity of MG ORAL TAB 00:00: [place] [facility] FLUOXETINE 2007-0 Yes 1 Cap Oral U nivers 20 MG ORAL 3-02 DAILY ity of CAP 00:00: [place] [facility] FOLIC ACID 2007-0 Yes 1 Tab Oral U nivers 1 MG ORAL 3-02 DAILY ity of TAB 00:00: Medical Branch PYRIDOXINE 2007-0 Yes 1 Tab Oral U nivers 50 MG ORAL 3-02 DAILY ity of TAB 00:00: [place] 00 Medical Branch PRAMIPEXOLE 2007-0 Yes 1 Tab Oral Univers 0.25 MG 3-02 once daily ity of ORAL TAB 00:00: [place] 00 Medical Branch ASPIRIN 325 2007-0 Yes 1 Tab Oral Univers MG ORAL 3-02 DAILY ity of TBEC 00:00: [place] 00 Medical Branch CLOPIDOGREL 2007-0 Yes 1 Tab Oral Univers 75 MG ORAL 3-02 DAILY ity of TAB 00:00: [place] 00 Medical Branch METFORMIN 2007-0 Yes 1 Tab Oral Un nicole 500 MG ORAL 3-02 BID MEALS ity of TAB 00:00: [place] 00 Medical Branch ENALAPRIL 2007-0 Yes 1 Tab Oral Un nicole MALEATE 10 3-02 DAILY ity of MG ORAL TAB 00:00: [place] 00 Medical Branch FLUOXETINE 2007-0 Yes 1 Cap Oral U nivers 20 MG ORAL 3-02 DAILY ity of CAP 00:00: [place] 00 Medical Branch FOLIC ACID 2007-0 Yes 1 Tab Oral U nivers 1 MG ORAL 3-02 DAILY ity of TAB 00:00: [place] 00 Medical Branch PYRIDOXINE 2007-0 Yes 1 Tab Oral U nivers 50 MG ORAL 3-02 DAILY ity of TAB 00:00: [place] 00 Medical Branch PRAMIPEXOLE 2007-0 2021- No 1 Tab Oral Univers 0.25 MG 3-02 06-26 once daily ity o f ORAL TAB 00:00: 00:00 [place] 00 :00 Medical Branch ASPIRIN 325 2007-0 2021- No 1 Tab Oral Univers MG ORAL 3-02 06-26 DAILY ity of TBEC 00:00: 00:00 [place] 00 :00 Medical Branch CLOPIDOGREL 2007-0 2021- No 1 Tab Oral Univers 75 MG ORAL 3-02 06-26 DAILY ity of TAB 00:00: 00:00 [place] 00 :00 Medical Branch ENALAPRIL 2007-0 2021- No 1 Tab Oral U nivers MALEATE 10 3-02 06-26 DAILY ity of MG ORAL TAB 00:00: 00:00 [place] 00 :00 Medical Branch FOLIC ACID 2007-0 2021- No 1 Tab Oral Univers 1 MG ORAL 3-02 06-26 DAILY ity of TAB 00:00: 00:00 [place] 00 :00 Medical Branch PYRIDOXINE 2007-0 2021- No 1 Tab Oral Univers 50 MG ORAL 3-02 06-26 DAILY ity of TAB 00:00: 00:00 [place] 00 :00 Medical Branch PRAMIPEXOLE 2020- No 1 Tab Oral Univers 0.25 MG 11-07 once daily ity o f ORAL TAB 00:00: 00:00 [place] 00 :00 Medical Branch ASPIRIN 325 2020- No 1 Tab Oral Univers MG ORAL 11-07 DAILY ity of TBEC 00:00: 00:00 [place] 00 :00 Medical Branch CLOPIDOGREL 2020- No 1 Tab Oral Univers 75 MG ORAL 11-07 DAILY ity of TAB 00:00: 00:00 [place] 00 :00 Medical Branch ENALAPRIL 2020- No 1 Tab Oral U nivers MALEATE 10 11-07 DAILY ity of MG ORAL TAB 00:00: 00:00 [place] 00 :00 Medical Branch FOLIC ACID 2020- No 1 Tab Oral Univers 1 MG ORAL 11-07 DAILY ity of TAB 00:00: 00:00 [place] 00 :00 Medical Branch PYRIDOXINE 2020- No 1 Tab Oral Univers 50 MG ORAL 11-07 DAILY ity of TAB 00:00: 00:00 [place] 00 :00 Medical Branch Lisinopril Lisinopril Yes Chris 1 tablet Common Km [facility] Lisinopril Lisinopril Yes Chris 1 tablet Common Km [facility] Pantoprazol Pantoprazol Yes Chris 1 tablet Common e Sodium e Sodium Km [facility] Metformin Metformin Yes Chris 1 tablet Common HCl HCl Km with a Spirit meal [facility] Tramadol Tramadol Yes Chris as Commo n HCl HCl Km directed [facility] Plavix Plavix Yes Chris 1 tablet Commo n Km [facility] Atorvastati Atorvastati Yes Chris TAKE 1 Common n Calcium n Calcium Km TABLET BY Spirit MOUTH AT - [facility] BEDTIME [facility] HydrALAZINE HydrALAZINE Yes Chris 1 tablet Common HCl HCl Km with food [facility] Immunizations Ordered Filled Immunization Date Status Comments Sour e Immunization Name Name Remdesivir 2023-01-12 Completed University of 00:00:00 [place] [facility] Remdesivir 2023-01-12 Completed University of 00:00:00 [place] [facility] Remdesivir 2023-01-11 Completed University of 00:00:00 [place] [facility] Remdesivir 2023-01-11 Completed University of 00:00:00 [place] [facility] Remdesivir 2023-01-10 Completed University of 00:00:00 [place] [facility] Remdesivir 2023-01-10 Completed University of 00:00:00 [place] [facility] Remdesivir 2023-01-09 Completed University of 00:00:00 [place] [facility] Remdesivir 2023-01-09 Completed University of 00:00:00 [facility] Vital Signs Vital Name Observation Time Observation Value Comments Source Systolic blood 2023-01-13 12:43:00 133 mm[Hg] Univer sity of pressure [facility] Diastolic blood 2023-01-13 12:43:00 69 mm[Hg] Unive rsity of [facility] Heart rate 2023-01-13 12:43:00 80 /min [facility] Body temperature 2023-01-13 12:43:00 36.06 Lorna [facility] Respiratory rate 2023-01-13 12:43:00 17 /min [facility] Oxygen saturation in 2023-01-13 12:43:00 95 /min [facility] Arterial blood by [facility] Pulse oximetry [place] Body weight 2023-01-13 08:52:00 62.234 kg [facility] BMI 2023-01-13 08:52:00 25.92 kg/m2 [facility] Body height 2023-01-08 07:51:00 154.9 cm [facility] Systolic blood 2021-03-06 17:19:00 136 mm[Hg] Univer sity of pressure [facility] Diastolic blood 2021-03-06 17:19:00 68 mm[Hg] Unive rsity of pressure [facility] Heart rate 2021-03-06 17:19:00 69 /min [facility] Body temperature 2021-03-06 17:19:00 36.83 [facility] [place] Respiratory rate 2021-03-06 17:19:00 20 /min Univ ersity of [place] [facility] Oxygen saturation in 2021-03-06 17:19:00 93 /min University of Arterial blood by [place] [employer] [place] Pulse oximetry Branch Body height 2021-03-03 21:00:00 152.4 cm [facility] [place] [facility] Body weight 2021-03-03 21:00:00 46.494 kg [facility] [place] [facility] BMI 2021-03-03 21:00:00 20.02 kg/m2 [facility] [place] [facility] Systolic blood 2021-03-06 17:19:00 136 mm[Hg] [facility] Diastolic blood 2021-03-06 17:19:00 68 mm[Hg] [facility] Heart rate 2021-03-06 17:19:00 69 /min [facility] Body temperature 2021-03-06 17:19:00 36.83 Lorna [facility] Respiratory rate 2021-03-06 17:19:00 20 /min [facility] Oxygen saturation in 2021-03-06 17:19:00 93 /min University of Arterial blood by [facility] Pulse oximetry Branch Body height 2021-03-03 21:00:00 152.4 cm [facility] Body weight 2021-03-03 21:00:00 46.494 kg [facility] BMI 2021-03-03 21:00:00 20.02 kg/m2 [facility] Systolic blood 2021-03-05 20:45:00 163 mm[Hg] [facility] Diastolic blood 2021-03-05 20:45:00 91 mm[Hg] [facility] Heart rate 2021-03-05 20:45:00 100 /min [facility] Respiratory rate 2021-03-05 20:45:00 22 /min [facility] Oxygen saturation in 2021-03-05 20:45:00 93 /min [facility] Arterial blood by [place] [employer] Pulse oximetry Branch Body temperature 2021-03-05 20:16:00 36 Lorna [facility] Body height 2021-03-03 21:00:00 152.4 cm [facility] Body weight 2021-03-03 21:00:00 46.494 kg [facility] BMI 2021-03-03 21:00:00 20.02 kg/m2 [facility] Systolic blood 2021-03-05 20:45:00 163 mm[Hg] [facility] Diastolic blood 2021-03-05 20:45:00 91 mm[Hg] [facility] Heart rate 2021-03-05 20:45:00 100 /min [facility] Respiratory rate 2021-03-05 20:45:00 22 /min [facility] Oxygen saturation in 2021-03-05 20:45:00 93 /min [facility] Arterial blood by [place] [employer] Pulse oximetry Branch Body temperature 2021-03-05 20:16:00 36 Lorna [facility] Body height 2021-03-03 21:00:00 152.4 cm [facility] Body weight 2021-03-03 21:00:00 46.494 kg [facility] BMI 2021-03-03 21:00:00 20.02 kg/m2 [facility] Systolic blood 2020-10-17 16:27:00 148 mm[Hg] [facility] Diastolic blood 2020-10-17 16:27:00 86 mm[Hg] [facility] Heart rate 2020-10-17 16:27:00 71 /min [facility] Oxygen saturation in 2020-10-17 16:27:00 100 /min [facility] Arterial blood by [place] [employer] [facility] Pulse oximetry Branch Systolic blood 2020-10-17 16:27:00 148 mm[Hg] [facility] Diastolic blood 2020-10-17 16:27:00 86 mm[Hg] [facility] Heart rate 2020-10-17 16:27:00 71 /min [facility] Oxygen saturation in 2020-10-17 16:27:00 100 /min [facility] blood by [place] [facility] Pulse oximetry Branch Systolic blood 2020-04-04 19:58:49 139 mm[Hg] Univer sity of pressure [facility] Diastolic blood 2020-04-04 19:58:49 67 mm[Hg] Unive rsity of pressure [facility] Heart rate 2020-04-04 19:58:49 77 /min [facility] Body temperature 2020-04-04 19:58:49 37.28 Lorna [facility] Respiratory rate 2020-04-04 19:58:49 20 /min [facility] Oxygen saturation in 2020-04-04 19:58:49 98 /min [facility] Arterial blood by [facility] Pulse oximetry [place] Body weight 2020-04-04 16:01:00 63.504 kg [facility] Procedures Procedure Date / Time Performing Clinician Source Performed POCT GLUCOSE (AUTOMATED) 2023-01-13 17:22:00 Perfecto Hess [facility] POCT GLUCOSE (AUTOMATED) 2023-01-13 12:57:00 [facility] BAS[facility]OLIC PANEL 2023-01-13 09:14:00 April Cosby [facility] (NA, K, CL, CO2, GLUCOSE, Medica l Branch BUN, CREATININE, CA) POCT GLUCOSE (AUTOMATED) 2023-01-13 02:02:00 [facility] POCT GLUCOSE (AUTOMATED) 2023-01-12 21:30:00 [facility] POCT GLUCOSE (AUTOMATED) 2023-01-12 16:36:00 Perfecto Hess Uni versity of [facility] POCT GLUCOSE (AUTOMATED) 2023-01-12 13:28:00 Perfecto Hess Uni versity of [facility] POCT GLUCOSE (AUTOMATED) 2023-01-12 01:41:00 Perfecto Hess versity of [facility] POCT GLUCOSE (AUTOMATED) 2023-01-11 21:31:00 Perfecto Hess Uni versity of [facility] POCT GLUCOSE (AUTOMATED) 2023-01-11 17:23:00 Perfecto Hess versity of [facility] MAGNESIUM 2023-01-11 15:21[facility] 2023-01-11 15:21:00 Daniel [facility] (NA, K, CL, CO2, GLUCOSE, Medica l Branch BUN, CREATININE, CA) CBC WITH DIFF 2023-01-11 15:21:00 [facility]OMATED) 2023-01-11 13:47:00 Perfecto Hess Uni [facility] POCT GLUCOSE (AUTOMATED) 2023-01-11 01:34:00 Perfecto Hess Uni [facility] POCT GLUCOSE (AUTOMATED) 2023-01-10 22:15:00 Perfecto Hess [facility] POCT GLUCOSE (AUTOMATED) 2023-01-10 19:10:00 Perfecto Hess [facility] POCT GLUCOSE (AUTOMATED) 2023-01-10 16:45:00 Perfecto Hess [facility] XR CHEST 1 VW 2023-01-10 15:44:33 Daniel [facility] CT ABDOMEN WO CONTRAST 2023-01-10 15:42:46 Daniel [facility] PO[facility] GLUCOSE (AUTOMATED) 2023-01-10 13:10:00 Perfecto Hess [facility] BASIC METABOLIC PANEL 2023-01-10 09:58:00 Nicanor Barfield [facility] (NA, K, CL, CO2, GLUCOSE, Medica l Branch BUN, CREATININE, CA) CBC WITH DIFF 2023-01-10 09:58:00 Nicanor Barfield [facility] N-TERMINAL PRO-BNP 2023-01-10 09:58:00 Nicanor Barfield [facility] POCT GLUCOSE (AUTOMATED) 2023-01-10 01:15:00 Perfecto Hess [facility] TRANSTHORACIC ECHO (TTE) 2023-01-09 21:24:57 Nicanor Barfield [facility] POCT GLUCOSE (AUTOMATED) 2023-01-09 21:20:00 Perfecto Hess [facility] HB ECG ROUTINE & RHYTHM 2023-01-09 20:45:12 Michell Ball [facility] CLOSTRIDIUM DIFFICILE 2023-01-09 17:13:00 [facility]SE ([facility]OMATED) 2023-01-09 17:03:00 Perfecto Hess [facility] POCT GLUCOSE (AUTOMATED) 2023-01-09 12:24:00 Perfecto Hess [facility] MAGNESIUM 2023-01-09 09:44:00 Carolyne [facility] TROPONIN I 2023-01-09 09:44:00 Michell Ball [facility] BASIC METABOLIC PANEL 2023-01-09 09:44:00 Carolyne [facility] (NA, K, CL, CO2, GLUCOSE, Medica l Branch BUN, CREATININE, CA) LIPID PANEL ([id number])(TOTAL 2023-01-09 09:44:00 Michell Ball [facility] TRIGLY[facility], HDL) CBC WITH DIFF 2023-01-09 09:44:00 Carolyne [facility] N-TERMINAL PRO-BNP 2023-01-09 09:44:00 Michell Ball [facility] POCT GLUCOSE (AUTOMATED) 2023-01-09 01:23:00 Perfecto Hess [facility] POCT GLUCOSE (AUTOMATED) 2023-01-08 22:42:00 Perfecto Hess [facility] POCT GLUCOSE (AUTOMATED) 2023-01-08 17:24:00 Deshawn [facility] POCT GLUCOSE (AUTOMATED) 2023-01-08 13:23:00 Perfecto Hess [facility] GLYCOSYLATED HEMOGLOBIN 2023-01-08 09:44:00 Deshawn [facility] (A1C) [facility] LACTIC ACID WHOLE BLOOD 2023-01-08 09:44:00 Deshawn [facility] LACTIC ACID WHOLE BLOOD 2023-01-08 05:46:[address] [facility] XR CHEST 1 VW 2023-01-08 05:38:38 April Shah [facility] ASSIGNMENT OF BENEFITS 2023-01-08 05:26:12 Doctor Unassigned, No [facility] NOTICE OF PRIVACY 2023-01-08 05:25:01 Doctor Unassigned, No [facility] PRACTICES [facility] CONSENT/REFUSAL FOR 2023-01-08 05:24:47 Doctor Unassigned, No [facility] DIAGNOSIS AND TREATMENT [facility] HB ECG ROUTINE & RHYTHM 2023-01-08 05:22:39 April Shah [facility] STRIP [facility] Branch LIPASE 2023-01-08 05:20:00 April Shah [facility] TROPONIN I 2023-01-08 05:20:00 April Shah [facility] COMP. METABOLIC PANEL 2023-01-08 05:20:00 April Shah [facility] ([id number]) [facility] CBC WITH DIFF 2023-01-08 05:20:00 April Shah [facility] N-TERMINAL PRO-BNP 2023-01-08 05:20:00 April Shah [facility] COVID-19 (ID NOW RAPID 2023-01-08 05:20:00 April Shah [facility] TESTING) Medical Branch LAB ONLY COVID 2023-01-08 05:20:00 April Shah [facility] EXTERNAL PROVIDER RECORDS 2021-03-15 05:01:00 Doctor Unassigned, No [facility] POCT GLUCOSE (AUTOMATED) 2021-03-06 17:23:00 Fide Hernandez [facility] POCT GLUCOSE (AUTOMATED) 2021-03-06 17:23:00 Fide Hernandez [facility] POCT GLUCOSE (AUTOMATED) 2021-03-06 13:03:00 Fide Hernandez [facility] POCT GLUCOSE (AUTOMATED) 2021-03-06 13:03:00 Fide Hernandez [facility] BASIC METABOLIC PANEL 2021-03-06 10:29:00 [facility] (NA, K, CL, CO2, GLUCOSE, Medica l Branch BUN, CREATININE, CA) CBC WITH DIFF 2021-03-06 10:29:00 [facility] BASIC METABOLIC PANEL 2021-03-06 10:29:00 [facility] (NA, K, CL, CO2, GLUCOSE, Medica l Branch BUN, CREATININE, CA) CBC WITH DIFF 2021-03-06 10:29:00 [facility] POCT GLUCOSE (AUTOMATED) 2021-03-06 02:53:00 Fide Hernandez [facility] POCT GLUCOSE (AUTOMATED) 2021-03-06 02:53:00 Fide Hernandez [facility] POCT GLUCOSE (AUTOMATED) 2021-03-05 21:22:00 Fide Hernandez [facility] POCT GLUCOSE (AUTOMATED) 2021-03-05 21:22:00 Fide Hernandez [facility] FULL MOUTH EXTRACTION 2021-03-05 19:01:00 Fide Hernandez [facility] WITH ALVEOLOPLASTY Medical Branc h FULL MOUTH EXTRACTION 2021-03-05 19:01:00 Fide Hernandez [facility] WITH ALVEOLOPLASTY Medical Branc h POCT GLUCOSE (AUTOMATED) 2021-03-05 15:23:00 Fide Hernandez [facility] POCT GLUCOSE (AUTOMATED) 2021-03-05 15:23:00 Fide Hernandez [facility] VANCOMYCIN TROUGH 2021-03-05 15:06:00 Yaw [facility] VANCOMYCIN TROUGH 2021-03-05 15:06:00 [facility] PO[facility]UCOSE (AUTOMATED) 2021-03-05 12:42:00 Fide Hernandez [facility] POCT GLUCOSE (AUTOMATED) 2021-03-05 12:42:00 Fide Hernandez [facility] BASIC METABOLIC PANEL 2021-03-05 07:14:00 [facility] (NA, K, CL, CO2, GLUCOSE, Medica l Branch BUN, CREATININE, CA) CBC WITH DIFF 2021-03-05 07:14:00 [facility] BASIC METABOLIC PANEL 2021-03-05 07:14:00 [facility] (NA, K, CL, CO2, GLUCOSE, Medica l Branch BUN, CREATININE, CA) CBC WITH DIFF 2021-03-05 07:14:00 [facility] POCT GLUCOSE (AUTOMATED) 2021-03-05 01:42:00 Fide Hernandez [facility] POCT GLUCOSE (AUTOMATED) 2021-03-05 01:42:00 Fide Hernandez [facility] POCT GLUCOSE (AUTOMATED) 2021-03-04 22:17:00 Fide Hernandez [facility] POCT GLUCOSE (AUTOMATED) 2021-03-04 22:17:00 Fide Hernandez [facility] POCT GLUCOSE (AUTOMATED) 2021-03-04 16:53:00 Fide Hernandez [facility] POCT GLUCOSE (AUTOMATED) 2021-03-04 16:53:00 Fide Hernandez [facility] XR CHEST 2 VW 2021-03-04 15:10:54 Alejandro Arellano [facility] XR CHEST 2 VW 2021-03-04 15:10:54 Alejandro Arellano [facility] POCT GLUCOSE (AUTOMATED) 2021-03-04 12:21:00 Fide Hernandez [facility] POCT GLUCOSE (AUTOMATED) 2021-03-04 12:21:00 Fide Hernandez [facility] POCT GLUCOSE (AUTOMATED) 2021-03-04 04:33:00 Fdie Hernandez [facility] POCT GLUCOSE (AUTOMATED) 2021-03-04 04:33:00 Fide Hernandez [facility] HB ECG ROUTINE & RHYTHM 2021-03-04 03:31:05 Edilberto [facility] HB ECG ROUTINE & RHYTHM 2021-03-04 03:31:05 Edilberto [facility] MAGNESIUM 2021-03-04 03:29:00 Edilberto [facility] C-REACTIVE PROTEIN 2021-03-04 03:29:00 Edilberto [facility] BASIC METABOLIC PANEL 2021-03-04 03:29:00 Edilberto [facility] (NA, K, CL, CO2, GLUCOSE, Medica l Branch BUN, CREATININE, CA) SEDIMENTATION RATE 2021-03-04 03:29:00 Edilberto [facility] CBC WITH DIFF 2021-03-04 03:29:00 Edilberto [facility] GLYCOSYLATED HEMOGLOBIN 2021-03-04 03:29:00 [facility] EAR CULTURE 2021-03-04 03:29:00 Edilberto [facility] MRSA / MSSA SCREEN BY 2021-03-04 03:29:00 Edilberto [facility] MAGNESIUM 2021-03-04 03:29:00 Edilberto [facility] C-REACTIVE PROTEIN 2021-03-04 03:29:00 Edilberto [facility] BASIC METABOLIC PANEL 2021-03-04 03:29:00 Yenny Casanova [facility] (NA, K, CL, CO2, GLUCOSE, Medica l Branch BUN, CREATININE, CA) SEDIMENTATION RATE 2021-03-04 03:29:00 Edilberto [facility] CBC WITH DIFF 2021-03-04 03:29:00 Edilberto [facility] GLYCOSYLATED HEMOGLOBIN 2021-03-04 03:29:00 [facility] EAR CULTURE 2021-03-04 03:29:00 Edilberto [facility] MRSA / MSSA SCREEN BY 2021-03-04 03:29:00 Edilberto [facility] 2021-03-04 03:02:00 Casanova, [facility] XR KUB 2021-03-04 03:02:00 Edilberto [facility] POCT GLUCOSE (AUTOMATED) 2021-03-04 02:38:00 Fide Hernandez [facility] POCT GLUCOSE (AUTOMATED) 2021-03-04 02:38:00 Fide Hernandez [facility] REFERRAL- 2020-10-06 06:01:00 Doctor Unassigned, No [facility] REQUEST/RESPONSE Name Medical Branch XR KUB 2020-04-04 19:19:57 Jessica Collins [facility] CT ABDOMEN PELVIS W 2020-04-04 18:03:22 Jessica Collins [facility] COMP. METABOLIC PANEL 2020-04-04 16:54:00 Jessica Collins [facility] ([id number]) [facility] CBC WITH DIFF 2020-04-04 16:54:00 Jessica Collins [facility] NOTICE OF PRIVACY 2020-04-04 15:52:41 Doctor Unassigned, No [facility] PRACTICES Name Medical [place] Encounters Start End Encounter Admission Attending Care Care Encounter Source Date/Time Date/Time Type Type Clinicians Facility Department ID 2021-07-09 Inpatient U BLAYNEIHSAN [facility] BARB [id number] Univers 04:04:21 FIDE [facility] 2023-01-29 2023-01-29 Outpatient R [facility] [id number] Univers 13:40:00 13:40:00 ANNIA [facility] 2023-01-15 2023-01-15 Transition ORLIN Damon [id number] Univers 00:00:00 00:00:00 of Care Janeth FISHMAN [id number] i ty of [place] 4[place]7.2.686 [place] [id number] [address] Branch 2023-01-08 2023-01-13 Inpatient X DESHAWN [facility] [id number] Univers 00:04:00 17:15:00 PERFECTO [facility] 2023-01-08 2023-01-13 [facility] 1.2.84 [id number] Univers 00:04:00 17:15:00 Encounter Perfecto Hess [id number] ity of [place] ANGELLAALBERT 4.2.7.2.686 [facility] [id number] [facility] 081 Branch 2021-03-15 2021-03-15 Orders Doctor SHARIFA [id number] Univers 00:00:00 00:00:00 Only Unassigned, SOLITARIO [id number] ity of [place] [facility] 4.2.7.2.686 Eduardo as [phone] [facility] 009 Branch 2021-03-15 2021-03-15 Orders Doctor SHARIFA [id number] 00:00:00 00:00:00 Only Unassigned, SOLITARIO [id number] [place] [facility] 4.2.7.2.686 [id number] 2021-03-07 2021-03-07 Transition Orlin Damon [id number] Univers 00:00:00 00:00:00 of Care Janeth Fishman [id number] i ty of [place].2.[place] [phone] [facility] 403 Branch 2021-03-07 2021-03-07 Transition Orlin Damon [id number] 00:00:00 00:00:00 of Care Janeth Fishman [id number] [place] 4.2.7.2.686 [id number] 2021-03-03 2021-03-06 [facility] Marcelle Hernandez 1.2.840.114 [id number] [facility] 16:42:00 15:52:00 Encounter Fide Jerez [id number] ity of Hospital 4.2.7.2.686 Eduardo as [id number] [facility] 098 Branch 2021-03-03 2021-03-06 [facility] Marcelle Hernandez 1.2.840.114 [id number] 16:42:00 15:52:00 Encounter Fide Corral Solitario [id number] [facility] 42.7.2.686 [id number] 2021-03-05 2021-03-05 Surgery Marcelle Hernandez 1.2.840.114 [id number] Univers 13:53:00 16:01:00 Fide Corral Solitario [id number] it y [facility] 4.2.7.2.686 Eduardo as [id number] [place] [address] Branch 2021-03-05 2021-03-05 Surgery Marcelle 1.2.840.114 [id number] 13:53:00 16:01:00 Solitario [id number]7.2.686 [id number] 103 2021-03-05 2021-03-05 Anesthesia Skyler Veloz 1.2.840.114 [id number] Univers 14:09:00 15:23:00 Event Jeremiah Schulte [id number] ity [facility] 4.2.7.2.686 Eduardo as [id number] [address] 2021-03-05 2021-03-05 Anesthesia Magdiel Skyler Marcelle 1.2.840.114 [id number] 14:09:00 15:23:00 Event Jeremiah Schulte [id number]686 [id number] 2020-11-13 2020-11-13 Outpatient Ellis [facility] [id number] Univers 13:00:00 13:00:00 SENDIL ity of [facility] 2020-10-17 2020-10-17 Office Marialuisa HIWILLY 1.2.840.114 [id number] Univers 10:00:12 13:40:16 Visit Han Lyons [id number] ity [facility] [place]7.2.[place] Profess[place] [id number] Mo dical [facility] 2020-10-17 2020-10-17 Office Marialuisa [facility] 1.2.840.114 [id number] 10:00:12 13:40:16 Visit Han Lyons [id number] [place] 4.2.7.2.686 Professio [id number] nal 092 Building 2020-10-17 2020-10-17 Outpatient HAN [facility] [id number] Univers 10:00:00 10:00:00 HAN ELAM ity of [facility] 2020-10-06 2020-10-06 Orders Doctor SHARIFA 1.2.840.114 [id number] Univers 00:00:00 00:00:00 Only Unassigned, SOLITARIO [id number] ity of [facility] 4.2.7.2.686 Eduardo as [phone] [facility] 009 Branch 2020-04-04 2020-04-04 Emergency [facility] [id number] Univers 11:03:02 15:12:00 Jessica Lyons 350.1.13.10 i ty of [place] 4.2.7.2.686 [facility] [id number] [facility] 084 Branch 2020-04-04 2020-04-04 Emergency X [facility] ERT [id number] Univers 10:53:00 10:53:00 ity [facility] 2019-04-20 2019-04-20 Outpatient Brazeaston Fraustot [id number] Common 13:00:00 13:00:00 [facility] [address] [facility] 2019-04-09 2019-04-09 Outpatient [place] [id number] Common 10:46:00 10:46:00 t [facility] [address] [facility] 2019-03-17 2019-03-17 Outpatient [place] [facility] [id number] Common 11:16:00 11:16:00 t [facility] [address] [facility] 2019-03-09 2019-03-09 Outpatient [place] [facility] [id number] Common 09:17:00 09:17:00 t [facility] [address] [facility] 2019-02-25 2019-02-25 [place]patient [facility] [id number] Common 09:30:00 09:30:[address] [facility] 2019-01-22 2019-01-22 [facility]patient [facility] [id number] Common 16:32:00 16:32:[address] [facility] 2018-12-25 2018-12-25 [facility] [id number] Common 16:16:00 16:16:[address] [facility] 2018-12-11 2018-12-11 Outpatient [facility] [id number] Common 09:32:00 09:32:[address] [facility] 2018-12-09 2018-12-09 Outpatient [facility] [id number] Common 15:59:00 15:59:[address] [facility] 2018-12-01 2018-12-01 [facility]patient [facility] [id number] Common 16:57:00 16:57:[address] [facility] 2018-11-24 2018-11-24 [facility]patient [facility] [id number] Common 14:15:00 14:15:[address] [facility] Results Test Description Test Time Test Comments Results Result Comments Source POCT GLUCOSE (AUTOMATED) 2023-01-13 17:23:11 Test Item Value Reference Range Interpretation Comme nts POCT GLU (test code = 9158229154) 244 mg/dL 70-110 H Lab Interpretation (test code = 35432-7) Abnormal [facility] GLUCOSE (AUTOMATED)2023-01-13 13:06:45 Test Item Value Reference Range Interpretation Comments POCT GLU (test code = 4601249772) 144 mg/dL 70-110 H Lab Interpretation (test code = Abnormal 17099-3) [facility] GLUCOSE (AUTOMATED)2023-01-13 02:06:41 Test Item Value Reference Range Interpretation Comments POCT GLU (test code = 2728101472) 214 mg/dL 70-110 H Lab Interpretation (test code = Abnormal 95722-8) [facility] GLUCOSE (AUTOMATED)2023-01-12 21:32:11 Test Item Value Reference Range Interpretation Comments POCT GLU (test code = 3343246890) 286 mg/dL 70-110 H Lab Interpretation (test code = Abnormal 10449-8) [facility] GLUCOSE (AUTOMATED)2023-01-12 16:37:14 Test Item Value Reference Range Interpretation Comments POCT GLU (test code = 9021490994) 167 mg/dL 70-110 H Lab Interpretation (test code = Abnormal 63758-3) [facility] GLUCOSE (AUTOMATED)2023-01-12 13:29:32 Test Item Value Reference Range Interpretation Comments POCT GLU (test code = 6651156258) 136 mg/dL 70-110 H Lab Interpretation (test code = Abnormal 26366-3) [facility] GLUCOSE (AUTOMATED)2023-01-12 01:52:29 Test Item Value Reference Range Interpretation Comments POCT GLU (test code = 2309996324) 190 mg/dL 70-110 H Lab Interpretation (test code = Abnormal 25482-2) [facility] GLUCOSE (AUTOMATED)2023-01-11 21:32:39 Test Item Value Reference Range Interpretation Comments POCT GLU (test code = 9283284385) 235 mg/dL 70-110 H Lab Interpretation (test code = Abnormal 37102-1) [facility] GLUCOSE (AUTOMATED)2023-01-11 17:24:51 Test Item Value Reference Range Interpretation Comments POCT GLU (test code = 6081737841) 180 mg/dL 70-110 H Lab Interpretation (test code = Abnormal 27468-1) [facility] GLUCOSE (AUTOMATED)2023-01-11 13:48:22 Test Item Value Reference Range Interpretation Comments POCT GLU (test code = 9706138713) 174 mg/dL 70-110 H Lab Interpretation (test code = Abnormal 21380-4) [facility] GLUCOSE (AUTOMATED)2023-01-11 01:35:03 Test Item Value Reference Range Interpretation Comments POCT GLU (test code = 1398807493) 190 mg/dL 70-110 H Lab Interpretation (test code = Abnormal 67398-9) [facility] GLUCOSE (AUTOMATED)2023-01-10 22:23:27 Test Item Value Reference Range Interpretation Comments POCT GLU (test code = 0296561165) 154 mg/dL 70-110 H Lab Interpretation (test code = Abnormal 98848-1) [facility] GLUCOSE (AUTOMATED)2023-01-10 19:13:52 Test Item Value Reference Range Interpretation Comments POCT GLU (test code = 6632287281) 104 mg/dL 70-110 Lab Interpretation (test code = Normal 36963-0) [facility] GLUCOSE (AUTOMATED)2023-01-10 16:52:16 Test Item Value Reference Range Interpretation Comments POCT GLU (test code = 4095408956) 108 mg/dL 70-110 Lab Interpretation (test code = Normal 10206-9) [facility] WITH [id number] 13:59:08 Test Item Value Reference Range Interpretation Comments WBC (test code = 9.31 See_Comment [Automated 9090-2) message] The system which generated this result transmitted reference range : 4.30 - 11.10 10*3/?L. The reference range was not used to interpret this result as normal/abnormal . RBC (test code = 4.59 See_Comment [Automated 935-8) message] The system which generated this result transmitted reference range : 3.93 - 5.25 10*6/?L. The reference range was not used to interpret this result as normal/abnormal . HGB (test code = 13.1 g/dL 11.6-15.0 718-7) HCT (test code = 40.5 % 35.7-45.2 4544-3) MCV (test code = 88.2 fL 80.6-95.5 787-2) MCH (test code = 28.5 pg 25.9-32.8 785-6) MCHC (test code = 32.3 g/dL 31.6-35.1 786-4) RDW-SD (test code = 43.8 fL 39.0-49.9 91930-1) RDW-CV (test code = 13.6 % 12.0-15.5 788-0) PLT (test code = 192 See_Comment [Automated 847-3) message] The system which generated this result transmitted reference range : 166 - 358 10*3/?L. The reference range was not used to interpret this result as normal/abnormal . MPV (test code = 11.0 fL 9.5-12.9 54402-2) NRBC/100 WBC (test 0.0 See_Comment [Automat ed code = 0871886951) message] The system which generated this result transmitted reference range : 0.0 - 10.0 /100 WBCs. The reference range was not used to interpret this result as normal/abnormal . NRBC x10^3 (test code See_Comment [Auto mated = 4774136059) message] The system which generated this result transmitted reference range : 10*3/?L. The reference range was not used to interpret this result as normal/abnormal . GRAN MAT (NEUT) % 82.5 % (test code = 770-8) IMM GRAN % (test code 0.60 % = 4595805078) LYMPH % (test code = 7.7 % 736-9) MONO % (test code = 9.0 % 5905-5) EOS % (test code = 0.0 % 713-8) BASO % (test code = 0.2 % 706-2) GRAN MAT x10^3(ANC) 7.67 10*3/uL 1.88-7.09 H (test code = 7141519047) IMM GRAN x10^3 (test 0.06 10*3/uL 0.00-0.06 code = 9214359162) LYMPH x10^3 (test 0.72 10*3/uL 1.32-3.29 L code = 731-0) MONO x10^3 (test code 0.84 10*3/uL 0.33-0.92 = 742-7) EOS x10^3 (test code 0.03-0.39 L = 711-2) BASO x10^3 (test code 0.01-0.07 = 704-7) EMMIE CELLS (test code 2+ See_Comment A [Auto mated = 4690-9) message] The system which generated this result transmitted reference range : (none). The reference range was not used to interpret this result as normal/abnormal . BANDS (test code = MARKED INCREASED A 7442568021) DOHLE BODIES (test Present A code = 7792-5) Lab Interpretation Abnormal (test code = 75920-1) [facility] 13:16:35 Test Item Value Reference Range Interpretation Comments POCT GLU (test code = 9164036052) 135 mg/dL 70-110 H Lab Interpretation (test code = Abnormal 38314-2) [facility] [id number] 11:43:50 Test Item Value Reference Range Interpretation Comments NT-proBNP (test code = 9430 pg/mL <=125 H 4318432121) SERGIO (test code = SERGIO) Biotin has been reported to cause a negative bias, interpret results relative to patient's use of biotin. Lab Interpretation (test Abnormal code = 50036-8) [facility] METABOLIC PANEL (NA, K, CL, CO2, GLUCOSE, BUN, CREATININE, CA)2023-01-10 11:41:08 Test Item Value Reference Range Interpretation Comments NA (test code = 138 mmol/L 135-145 1635631159) K (test code = 4.5 mmol/L 3.5-5.0 7462791692) CL (test code = 100 mmol/L 98-108 5660273030) CO2 TOTAL (test code = 28 mmol/L 23-31 0713269728) AGAP (test code = 10 2-16 8052583925) BUN (test code = 90 mg/dL 7-23 H 9578239802) GLUCOSE (test code = 132 mg/dL 70-110 H 8328896019) CREATININE (test code = 1.63 mg/dL 0.50-1.04 H 2813728826) CALCIUM (test code = 8.5 mg/dL 8.6-10.6 L 1243806691) eGFR (test code = 32.0 mL/min/1.73m2 5255264560) SERGIO (test code = SERGIO) Association of Glomerular Filtration Rate (GFR) and Staging of Kidney Disease* + --+ --+ ------+| GFR (mL/min/1.73 m2) ?| With Kidney Damage ?| ?Without Kidney Damage+ --------+ --------+ +| ?>90 ?| ?Stage one ?| ? Normal ?+ ---+ ---+ -------+| ?60-89 ?| ?Stage two ?| ? Decreased GFR ? + --+ --+ ------+| ?30-59 ?| ?Stage three ?| ? Stage three ? + --+ --+ ------+| ?15-29 ?| ?Stage four ? | ? Stage four ?+ ---+ ---+ -------+| ?<15 (or dialysis) ? ?| ?Stage five ? | ? Stage five ?+ ---+ ---+ -------+ *Each stage assumes the associated GFR level has been in effect for at least three months. ?Stages 1 to 5, with or without kidney disease, indicate chronic kidney disease. Notes: Determination of stages one and two (with eGFR >59mL/min/1.73 m2) requires estimation of kidney damage for at least three months as defined by structural or functional abnormalities of the kidney, manifested by either:Pathological abnormalities or Markers of kidney damage (including abnormalities in the composition of the blood or urine or abnormalities in imaging tests). Lab Interpretation Abnormal (test code = 03882-7) [facility] 01:18:35 Test Item Value Reference Range Interpretation Comments POCT GLU (test code = 5515966914) 153 mg/dL 70-110 H Lab Interpretation (test code = Abnormal 61401-2) [facility] [id number] 00:07:56 Test Item Value Reference Range Interpretation Comments NT-proBNP (test code = 882 pg/mL <=125 H 6970904412) SERGIO (test code = SERGIO) Biotin has been reported to cause a negative bias, interpret results relative to patient's use of biotin. Lab Interpretation (test Abnormal code = 59199-0) [facility] [id number] 00:07:36 Test Item Value Reference Range Interpretation Comments TROPONIN I (test code = 0.081 ng/mL <=0.034 H 6384195647) SERGIO (test code = SERGIO) Reference (Normal) Range (defined by the 99th percentile reference limit): <= 0.034 ng/mL Note: Cardiac troponin begins to rise 3-4 hours after the onset of ischemia. Repeat in 4-6 hours if the sample was drawn within 3-4 hours of the onset of the symptom and found normal. Diagnosis of myocardial injury is made with acute changes in cTn concentrations with at least one serial sample above the 99th percentile upper reference limit (URL), taken together with the patient's clinical presentation. Biotin has been reported to cause a negative bias, interpret results relative to patient's use of biotin. Lab Interpretation Abnormal (test code = 20265-0) [facility] (03355)(TOTAL CHOLESTEROL, TRIGLYCERIDES, HDL)2023-01-09 23:15:06 Test Item Value Reference Range Interpretation Comments CHOL (test code = 8925979517) 101 mg/dL 120-200 L HDL (test code = 0243448383) 26 mg/dL >=50 L HDLC RATIO (test code = 4209748720) 3.9 <=4.5 TRIG (test code = 4641915611) 319 mg/dL 30-170 H LDL CHOL (test code = 32644-1) 11 mg/dL <=160 VLDL (test code = 8977996126) 64 mg/dL 5-60 H Lab Interpretation (test code = Abnormal 37115-7) [facility] GLUCOSE (AUTOMATED)2023-01-09 21:21:21 Test Item Value Reference Range Interpretation Comments POCT GLU (test code = 6181139540) 230 mg/dL 70-110 H Lab Interpretation (test code = Abnormal 31637-7) [facility] GLUCOSE (AUTOMATED)2023-01-09 17:04:39 Test Item Value Reference Range Interpretation Comments POCT GLU (test code = 125 mg/dL 70-110 H Notifi ed Provider [id number]) Lab Interpretation (test Abnormal code = 15633-5) [facility] GLUCOSE (AUTOMATED)2023-01-09 12:42:13 Test Item Value Reference Range Interpretation Comments POCT GLU (test code = 6575787725) 102 mg/dL 70-110 Lab Interpretation (test code = Normal 22356-0) [facility] WITH [id number] 12:05:19 Test Item Value Reference Range Interpretation Comments WBC (test code = 12.42 See_Comment H [Automated 6690-2) message] The sy stem which generated this result transmitted reference range : 4.30 - 11.10 10*3/?L. The reference range was not used to interpret this result as normal/abnormal . RBC (test code = 4.42 See_Comment [Automated 789-8) message] The sy stem which generated this result transmitted reference range : 3.93 - 5.25 10*6/?L. The reference range was not used to interpret this result as normal/abnormal . HGB (test code = 12.6 g/dL 11.6-15.0 718-7) HCT (test code = 38.4 % 35.7-45.2 4544-3) MCV (test code = 86.9 fL 80.6-95.5 787-2) MCH (test code = 28.5 pg 25.9-32.8 785-6) MCHC (test code = 32.8 g/dL 31.6-35.1 786-4) RDW-SD (test code = 42.5 fL 39.0-49.9 11074-1) RDW-CV (test code = 13.5 % 12.0-15.5 788-0) PLT (test code = 246 See_Comment [Automated 777-3) message] The sy stem which generated this result transmitted reference range : 166 - 358 10*3/ ?L. The reference r maría was not used to interpret this result as normal/abnormal . MPV (test code = 10.6 fL 9.5-12.9 65977-2) NRBC/100 WBC (test 0.0 See_Comment [Automat ed code = 5027747030) message] The system which generated this result transmitted reference range : 0.0 - 10.0 /100 WBCs. The refer ence range was not u sed to interpret th is result as normal/abnormal . NRBC x10^3 (test code See_Comment [Auto mated = 2681114210) message] The s ystem which generated this result transmitted reference range : 10*3/?L. The reference range was not used to interpret this result as normal/abnormal . SEG % (test code = 77 % 33-76 H 53565-5) LYMPH % (test code = 8 % 14-54 L 59088-8) MONO % (test code = 15 % 0-4 H 85686-8) ANC (test code = 9.36 10*3/uL 1.88-7.09 H 753-4) Lab Interpretation Abnormal (test code = 25893-3) [facility] 10:40:06 Test Item Value Reference Range Interpretation Comments MAGNESIUM (test code = 8766994236) 2.2 mg/dL 1.7-2.4 Lab Interpretation (test code = Normal 06585-9) [facility] METABOLIC PANEL (NA, K, CL, CO2, GLUCOSE, BUN, CREATININE, CA)2023-01-09 10:40:05 Test Item Value Reference Range Interpretation Comments NA (test code = 136 mmol/L 135-145 1797015120) K (test code = 4.3 mmol/L 3.5-5.0 7317460484) CL (test code = 102 mmol/L 98-108 4597534536) CO2 TOTAL (test code = 23 mmol/L 23-31 5090048642) AGAP (test code = 11 2-16 2794212108) BUN (test code = 82 mg/dL 7-23 H 3946175318) GLUCOSE (test code = 117 mg/dL 70-110 H 2396482728) CREATININE (test code = 2.10 mg/dL 0.50-1.04 H 3001424392) CALCIUM (test code = 8.4 mg/dL 8.6-10.6 L 6812710191) eGFR (test code = 23.9 mL/min/1.73m2 3050083171) SERGIO (test code = SERGIO) Association of Glomerular Filtration Rate (GFR) and Staging of Kidney Disease* + --+ --+ ------+| GFR (mL/min/1.73 m2) ?| With Kidney Damage ?| ?Without Kidney Damage+ --------+ --------+ +| ?>90 ?| ?Stage one ?| ? Normal ?+ ---+ ---+ -------+| ?60-89 ?| ?Stage two ?| ? Decreased GFR ? + --+ --+ ------+| ?30-59 ?| ?Stage three ?| ? Stage three ? + --+ --+ ------+| ?15-29 ?| ?Stage four ? | ? Stage four ?+ ---+ ---+ -------+| ?<15 (or dialysis) ? ?| ?Stage five ? | ? Stage five ?+ ---+ ---+ -------+ *Each stage assumes the associated GFR level has been in effect for at least three months. ?Stages 1 to 5, with or without kidney disease, indicate chronic kidney disease. Notes: Determination of stages one and two (with eGFR >59mL/min/1.73 m2) requires estimation of kidney damage for at least three months as defined by structural or functional abnormalities of the kidney, manifested by either:Pathological abnormalities or Markers of kidney damage (including abnormalities in the composition of the blood or urine or abnormalities in imaging tests). Lab Interpretation Abnormal (test code = 56061-7) [facility] GLUCOSE (AUTOMATED)2023-01-09 01:27:38 Test Item Value Reference Range Interpretation Comments POCT GLU (test code = 2370372224) 189 mg/dL 70-110 H Lab Interpretation (test code = Abnormal 51978-9) [facility] GLUCOSE (AUTOMATED)2023-01-08 22:44:03 Test Item Value Reference Range Interpretation Comments POCT GLU (test code = 2753891689) 206 mg/dL 70-110 H Lab Interpretation (test code = Abnormal 18445-9) [facility] GLUCOSE (AUTOMATED)2023-01-08 17:25:33 Test Item Value Reference Range Interpretation Comments POCT GLU (test code = 2913333367) 141 mg/dL 70-110 H Lab Interpretation (test code = Abnormal 24748-8) [facility] GLUCOSE (AUTOMATED)2023-01-08 13:24:48 Test Item Value Reference Range Interpretation Comments POCT GLU (test code = 8880350134) 111 mg/dL 70-110 H Lab Interpretation (test code = Abnormal 30099-3) [facility]cosylated Hemoglobin (A1C)2023-01-08 10:17:45 Test Item Value Reference Range Interpretation Comments HGB A1C (test code = 5.4 % 4.0-5.7 4548-4) SERGIO (test code = SERGIO) Reference RangesNormal: <5.7%Prediabetes: 5.7 - 6.4%Diabetes: > 6.5% Lab Interpretation (test Normal code = 14736-3) [facility] WITH [id number] 06:26:26 Test Item Value Reference Range Interpretation Comments WBC (test code = 8.20 See_Comment [Automated 6690-2) message] The sy stem which generated this result transmitted reference range : 4.30 - 11.10 10*3/?L. The reference range was not used to interpret this result as normal/abnormal . RBC (test code = 4.80 See_Comment [Automated 789-8) message] The sy stem which generated this result transmitted reference range : 3.93 - 5.25 10*6/?L. The reference range was not used to interpret this result as normal/abnormal . HGB (test code = 13.6 g/dL 11.6-15.0 718-7) HCT (test code = 42.4 % 35.7-45.2 4544-3) MCV (test code = 88.3 fL 80.6-95.5 787-2) MCH (test code = 28.3 pg 25.9-32.8 785-6) MCHC (test code = 32.1 g/dL 31.6-35.1 786-4) RDW-SD (test code = 43.6 fL 39.0-49.9 26309-0) RDW-CV (test code = 13.4 % 12.0-15.5 788-0) PLT (test code = 233 See_Comment [Automated 777-3) message] The sy stem which generated this result transmitted reference range : 166 - 358 10*3/ ?L. The reference r maría was not used to interpret this result as normal/abnormal . MPV (test code = 10.6 fL 9.5-12.9 28065-1) NRBC/100 WBC (test 0.0 See_Comment [Automat ed code = 0314649780) message] The system which generated this result transmitted reference range : 0.0 - 10.0 /100 WBCs. The refer ence range was not u sed to interpret th is result as normal/abnormal . NRBC x10^3 (test code See_Comment [Auto mated = 6459314825) message] The s ystem which generated this result transmitted reference range : 10*3/?L. The reference range was not used to interpret this result as normal/abnormal . SEG % (test code = 56 % 33-76 02513-1) BAND % (test code = 32 % 0-1 H 55265-2) LYMPH % (test code = 12 % 14-54 L 88572-7) ANC (test code = 7.21 10*3/uL 1.88-7.09 H 753-4) TOXIC CHANGES (test Present A code = 803-7) PLT ESTIMATE (test Normal Normal code = 9317-9) Lab Interpretation Abnormal (test code = 97825-4) [id number] Test Item Value Reference Range Interpretation Comments TROPONIN I (test code = 0.113 ng/mL <=0.034 H 0215061142) SERGIO (test code = SERGIO) Reference (Normal) Range (defined by the 99th percentile reference limit): <= 0.034 ng/mL Note: Cardiac troponin begins to rise 3-4 hours after the onset of ischemia. Repeat in 4-6 hours if the sample was drawn within 3-4 hours of the onset of the symptom and found normal. Diagnosis of myocardial injury is made with acute changes in cTn concentrations with at least one serial sample above the 99th percentile upper reference limit (URL), taken together with the patient's clinical presentation. Biotin has been reported to cause a negative bias, interpret results relative to patient's use of biotin. Lab Interpretation Abnormal (test code = 12976-0) [facility] [id number] 05:53:56 Test Item Value Reference Range Interpretation Comments NT-proBNP (test code = 912 pg/mL <=125 H 0579005086) SERGIO (test code = SERGIO) Biotin has been reported to cause a negative bias, interpret results relative to patient's use of biotin. Lab Interpretation (test Abnormal code = 71095-4) [facility] METABOLIC PANEL (67703)2023-01-08 05:45:19 Test Item Value Reference Range Interpretation Comments NA (test code = 135 mmol/L 135-145 0125387978) K (test code = 4.7 mmol/L 3.5-5.0 1702357576) CL (test code = 97 mmol/L 98-108 L 8910906540) CO2 TOTAL (test code = 26 mmol/L 23-31 6460818518) AGAP (test code = 12 2-16 8190545615) BUN (test code = 52 mg/dL 7-23 H 7024387454) GLUCOSE (test code = 125 mg/dL 70-110 H 3683590418) CREATININE (test code = 1.53 mg/dL 0.50-1.04 H 5645893479) TOTAL BILI (test code = 0.5 mg/dL 0.1-1.4 9387229446) CALCIUM (test code = 8.4 mg/dL 8.6-10.6 L 8172674837) T PROTEIN (test code = 7.4 g/dL 6.3-8.2 8466663671) ALBUMIN (test code = 3.6 g/dL 3.5-5.0 2875676594) ALK PHOS (test code = 76 U/L 34-122 3345671723) ALTv (test code = 18 U/L 5-35 1742-6) AST(SGOT) (test code = 42 U/L 13-40 H 9589023359) eGFR (test code = 34.4 mL/min/1.73m2 6190304840) SERGIO (test code = SERGIO) Association of Glomerular Filtration Rate (GFR) and Staging of Kidney Disease* + --+ --+ ------+| GFR (mL/min/1.73 m2) ?| With Kidney Damage ?| ?Without Kidney Damage+ --------+ --------+ +| ?>90 ?| ?Stage one ?| ? Normal ?+ ---+ ---+ -------+| ?60-89 ?| ?Stage two ?| ? Decreased GFR ? + --+ --+ ------+| ?30-59 ?| ?Stage three ?| ? Stage three ? + --+ --+ ------+| ?15-29 ?| ?Stage four ? | ? Stage four ?+ ---+ ---+ -------+| ?<15 (or dialysis) ? ?| ?Stage five ? | ? Stage five ?+ ---+ ---+ -------+ *Each stage assumes the associated GFR level has been in effect for at least three months. ?Stages 1 to 5, with or without kidney disease, indicate chronic kidney disease. Notes: Determination of stages one and two (with eGFR >59mL/min/1.73 m2) requires estimation of kidney damage for at least three months as defined by structural or functional abnormalities of the kidney, manifested by either:Pathological abnormalities or Markers of kidney damage (including abnormalities in the composition of the blood or urine or abnormalities in imaging tests). Lab Interpretation Abnormal (test code = 23954-3) [facility]ballLIPASE, [id number] 05:44:54 Test Item Value Reference Range Interpretation Comments LIPASE (test code = 1605837535) 98 U/L 0-220 Lab Interpretation (test code = Normal 13492-4) [facility] GLUCOSE (AUTOMATED)2021-03-06 17:24:16 Test Item Value Reference Range Interpretation Comments POCT GLU (test code = 5690570780) 100 mg/dL 70-110 Lab Interpretation (test code = Normal 74757-1) [facility] GLUCOSE (AUTOMATED)2021-03-06 17:24:16 Test Item Value Reference Range Interpretation Comments POCT GLU (test code = 5471836183) 100 mg/dL 70-110 Lab Interpretation (test code = Normal 50848-0) [facility]ball[facility] [id number] 16:58:13FINDINGS/IMPRESSION: The gastrostomy tube terminates in the stomach with the balloon in thegastric an trum. The contrast opacifies the stomach, duodenum and proximaljejenum. Preliminary Report Dictated by Resident: Arnold Weinstein MD., have reviewed this study and agree with the abovereport.EXAM: XR KUB HISTORY: PEG tube placement Please perform KUB right after injectingOmnipaque contrast through the PEG tube. [facility]PARISON: 04/04/2020 [facility], Radiant Results Inft User - 03/06/2021 11:59 AM CDT EXAM: XR KUBHISTORY: PEG tube placement Please perform KUB right after injectingOmnipaque contrast through the PEG tube. [facility]COMPARISON: 04/04/2020IMPRESSIONFINDINGS/IMPRESSION:The gastrostomy tube terminates in the stomach with the balloon in thegastric antrum. The contrast opacifies the stomach, duodenum and proximaljejenum.Preliminary Report Dictated by Resident: Arnold Sandoval MD., have reviewed this study and agree with the abovereport.[facility] [id number] 16:58:13 FINDINGS/IMPRESSION: The gastrostomy tube terminates in the stomach with the balloon in thegastric antrum. The contrast opacifies the stomach, duodenum and proximaljejenum. Preliminary Report Dictated by Resident: Arnold Weinstein MD., have reviewed this study and agree with the abovereport.EXAM: XR KUB HISTORY: PEG tube placement Please perform KUB right after injectingOmnipaque contrast through the PEG tube. PEG tube was used earlier today byfamily. COMPARISON: 04/04/2020 [facility], Radiant Results Inft User - 03/06/2021 11:59 AM CDT EXAM: XR KUBHISTORY: PEG tube placement Please perform KUB right after injectingOmnipaque contrast through the PEG tube. PEG tube was used earlier today byfamily.COMPARISON: 04/04/2020IMPRESSIONFINDINGS/IMPRESSION:The gastrostomy tube terminates in the stomach with the balloon in thegastric antrum. The contrast opacifies the stomach, duodenum and proximaljejenum.Preliminary Report Dictated by Resident: Arnold Sandoval MD., have reviewed this study and agree with the abovereport.[facility] [id number] 13:29:29 Test Item Value Reference Range Interpretation Comments Ear Culture (test 1+ Skin nannette: Commensal code = 608-0) skin microorganisms only. SERGIO (test code = Bacterial pathogens SERGIO) associated with wound infections were not identified, which include Pseudomonas aeruginosa and Staphylococcus aureus (MRSA or MSSA). [facility] [id number] 13:29:29 Test Item Value Reference Range Interpretation Comments Ear Culture (test 1+ Skin nannette: Commensal code = 608-0) skin microorganisms only. SERGIO (test code = Bacterial pathogens SERGIO) associated with wound infections were not identified, which include Pseudomonas aeruginosa and Staphylococcus aureus (MRSA or MSSA). [facility] GLUCOSE (AUTOMATED)2021-03-06 13:04:33 Test Item Value Reference Range Interpretation Comments POCT GLU (test code = 7564944983) 103 mg/dL 70-110 Lab Interpretation (test code = Normal 41212-4) [facility] GLUCOSE (AUTOMATED)2021-03-06 13:04:33 Test Item Value Reference Range Interpretation Comments POCT GLU (test code = 6832199643) 103 mg/dL 70-110 Lab Interpretation (test code = Normal 39082-4) [facility] METABOLIC PANEL (NA, K, CL, CO2, GLUCOSE, BUN, CREATININE, CA)2021-03-06 11:16:48 Test Item Value Reference Range Interpretation Comments NA (test code = 136 mmol/L 135-145 2943622876) K (test code = 4.6 mmol/L 3.5-5.0 8273530978) CL (test code = 100 mmol/L 98-108 1945674220) CO2 TOTAL (test code = 32 mmol/L 23-31 H 9470335655) AGAP (test code = 2-16 5475140476) BUN (test code = 25 mg/dL 7-23 H 6959477808) GLUCOSE (test code = 111 mg/dL 70-110 H 6728518838) CREATININE (test code = 0.59 mg/dL 0.50-1.04 9191320662) CALCIUM (test code = 8.5 mg/dL 8.6-10.6 L 8379870234) eGFR (test code = mL/min/1.73m2 3783379858) SERGIO (test code = SERGIO) Association of Glomerular Filtration Rate (GFR) and Staging of Kidney Disease* + --+ --+ ------+| GFR (mL/min/1.73 m2) ?| With Kidney Damage ?| ?Without Kidney Damage+ --------+ --------+ +| ?>90 ?| ?Stage one ?| ? Normal ?+ ---+ ---+ -------+| ?60-89 ?| ?Stage two ?| ? Decreased GFR ? + --+ --+ ------+| ?30-59 ?| ?Stage three ?| ? Stage three ? + --+ --+ ------+| ?15-29 ?| ?Stage four ? | ? Stage four ?+ ---+ ---+ -------+| ?<15 (or dialysis) ? ?| ?Stage five ? | ? Stage five ?+ ---+ ---+ -------+ *Each stage assumes the associated GFR level has been in effect for at least three months. ?Stages 1 to 5, with or without kidney disease, indicate chronic kidney disease. Notes: Determination of stages one and two (with eGFR >59mL/min/1.73 m2) requires estimation of kidney damage for at least three months as defined by structural or functional abnormalities of the kidney, manifested by either:Pathological abnormalities or Markers of kidney damage (including abnormalities in the composition of the blood or urine or abnormalities in imaging tests). Lab Interpretation Abnormal (test code = 07923-0) [facility] METABOLIC PANEL (NA, K, CL, CO2, GLUCOSE, BUN, CREATININE, CA)2021-03-06 11:16:48 Test Item Value Reference Range Interpretation Comments NA (test code = 136 mmol/L 135-145 8926388354) K (test code = 4.6 mmol/L 3.5-5.0 7276023376) CL (test code = 100 mmol/L 98-108 2347662866) CO2 TOTAL (test code = 32 mmol/L 23-31 H 2818526841) AGAP (test code = 2-16 2916522766) BUN (test code = 25 mg/dL 7-23 H 1742459085) GLUCOSE (test code = 111 mg/dL 70-110 H 8220219062) CREATININE (test code = 0.59 mg/dL 0.50-1.04 8580941578) CALCIUM (test code = 8.5 mg/dL 8.6-10.6 L 5623032717) eGFR (test code = mL/min/1.73m2 5142685567) SERGIO (test code = SERGIO) Association of Glomerular Filtration Rate (GFR) and Staging of Kidney Disease* + --+ --+ ------+| GFR (mL/min/1.73 m2) ?| With Kidney Damage ?| ?Without Kidney Damage+ --------+ --------+ +| ?>90 ?| ?Stage one ?| ? Normal ?+ ---+ ---+ -------+| ?60-89 ?| ?Stage two ?| ? Decreased GFR ? + --+ --+ ------+| ?30-59 ?| ?Stage three ?| ? Stage three ? + --+ --+ ------+| ?15-29 ?| ?Stage four ? | ? Stage four ?+ ---+ ---+ -------+| ?<15 (or dialysis) ? ?| ?Stage five ? | ? Stage five ?+ ---+ ---+ -------+ *Each stage assumes the associated GFR level has been in effect for at least three months. ?Stages 1 to 5, with or without kidney disease, indicate chronic kidney disease. Notes: Determination of stages one and two (with eGFR >59mL/min/1.73 m2) requires estimation of kidney damage for at least three months as defined by structural or functional abnormalities of the kidney, manifested by either:Pathological abnormalities or Markers of kidney damage (including abnormalities in the composition of the blood or urine or abnormalities in imaging tests). Lab Interpretation Abnormal (test code = 40764-4) [facility] WITH [id number] 10:49:43 Test Item Value Reference Range Interpretation Comments WBC (test code = See_Comment H [Automated 9690-2) message] The sy stem which generated this result transmitted reference range : 4.30 - 11.10 10*3/?L. The reference range was not used to interpret this result as normal/abnormal . RBC (test code = See_Comment L [Automated 199-8) message] The sy stem which generated this result transmitted reference range : 3.93 - 5.25 10*6/?L. The reference range was not used to interpret this result as normal/abnormal . HGB (test code = 11.4 g/dL 11.6-15.0 L 718-7) HCT (test code = 35.4 % 35.7-45.2 L 4544-3) MCV (test code = 91.9 fL 80.6-95.5 787-2) MCH (test code = 29.6 pg 25.9-32.8 785-6) MCHC (test code = 32.2 g/dL 31.6-35.1 786-4) RDW-SD (test code = 41.3 fL 39.0-49.9 90441-3) RDW-CV (test code = 12.4 % 12.0-15.5 788-0) PLT (test code = See_Comment [Automated 777-3) message] The sy stem which generated this result transmitted reference range : 166 - 358 10*3/ ?L. The reference r maría was not used to interpret this result as normal/abnormal . MPV (test code = 10.5 fL 9.5-12.9 68884-9) NRBC/100 WBC (test See_Comment [Automat ed code = 5060297962) message] The system which generated this result transmitted reference range : 0.0 - 10.0 /100 WBCs. The refer ence range was not u sed to interpret th is result as normal/abnormal . NRBC x10^3 (test code <0.01 See_Comment [Auto mated = 1154263097) message] The s ystem which generated this result transmitted reference range : 10*3/?L. The reference range was not used to interpret this result as normal/abnormal . GRAN MAT (NEUT) % 83.9 % (test code = 770-8) IMM GRAN % (test code 0.40 % = 2357632298) LYMPH % (test code = 9.5 % 736-9) MONO % (test code = 5.9 % 5905-5) EOS % (test code = 0.1 % 713-8) BASO % (test code = 0.2 % 706-2) GRAN MAT x10^3(ANC) 9.91 10*3/uL 1.88-7.09 H (test code = 1156996978) IMM GRAN x10^3 (test 0.05 10*3/uL 0.00-0.06 code = 2698777878) LYMPH x10^3 (test code 1.12 10*3/uL 1.32-3.29 L = 731-0) MONO x10^3 (test code 0.70 10*3/uL 0.33-0.92 = 742-7) EOS x10^3 (test code = <0.03 0.03-0.39 L 711-2) BASO x10^3 (test code <0.03 0.01-0.07 = 704-7) Lab Interpretation Abnormal (test code = 72275-9) [facility] WITH [id number] 10:49:43 Test Item Value Reference Range Interpretation Comments WBC (test code = See_Comment H [Automated 6690-2) message] The sy stem which generated this result transmitted reference range : 4.30 - 11.10 10*3/?L. The reference range was not used to interpret this result as normal/abnormal . RBC (test code = See_Comment L [Automated 789-8) message] The sy stem which generated this result transmitted reference range : 3.93 - 5.25 10*6/?L. The reference range was not used to interpret this result as normal/abnormal . HGB (test code = 11.4 g/dL 11.6-15.0 L 718-7) HCT (test code = 35.4 % 35.7-45.2 L 4544-3) MCV (test code = 91.9 fL 80.6-95.5 787-2) MCH (test code = 29.6 pg 25.9-32.8 785-6) MCHC (test code = 32.2 g/dL 31.6-35.1 786-4) RDW-SD (test code = 41.3 fL 39.0-49.9 18232-5) RDW-CV (test code = 12.4 % 12.0-15.5 788-0) PLT (test code = See_Comment [Automated 777-3) message] The sy stem which generated this result transmitted reference range : 166 - 358 10*3/ ?L. The reference r maría was not used to interpret this result as normal/abnormal . MPV (test code = 10.5 fL 9.5-12.9 78161-5) NRBC/100 WBC (test See_Comment [Automat ed code = 1318648694) message] The system which generated this result transmitted reference range : 0.0 - 10.0 /100 WBCs. The refer ence range was not u sed to interpret th is result as normal/abnormal . NRBC x10^3 (test code <0.01 See_Comment [Auto mated = 2990040604) message] The s ystem which generated this result transmitted reference range : 10*3/?L. The reference range was not used to interpret this result as normal/abnormal . GRAN MAT (NEUT) % 83.9 % (test code = 770-8) IMM GRAN % (test code 0.40 % = 3446083883) LYMPH % (test code = 9.5 % 736-9) MONO % (test code = 5.9 % 5905-5) EOS % (test code = 0.1 % 713-8) BASO % (test code = 0.2 % 706-2) GRAN MAT x10^3(ANC) 9.91 10*3/uL 1.88-7.09 H (test code = 5739189672) IMM GRAN x10^3 (test 0.05 10*3/uL 0.00-0.06 code = 0909486527) LYMPH x10^3 (test code 1.12 10*3/uL 1.32-3.29 L = 731-0) MONO x10^3 (test code 0.70 10*3/uL 0.33-0.92 = 742-7) EOS x10^3 (test code = <0.03 0.03-0.39 L 711-2) BASO x10^3 (test code <0.03 0.01-0.07 = 704-7) Lab Interpretation Abnormal (test code = 99519-1) [facility] GLUCOSE (AUTOMATED)2021-03-06 02:54:54 Test Item Value Reference Range Interpretation Comments POCT GLU (test code = 0212827922) 177 mg/dL 70-110 H Lab Interpretation (test code = Abnormal 05039-3) [facility] GLUCOSE (AUTOMATED)2021-03-06 02:54:54 Test Item Value Reference Range Interpretation Comments POCT GLU (test code = 3198292935) 177 mg/dL 70-110 H Lab Interpretation (test code = Abnormal 87254-0) [facility] GLUCOSE (AUTOMATED)2021-03-05 21:32:59 Test Item Value Reference Range Interpretation Comments POCT GLU (test code = 8587979775) 121 mg/dL 70-110 H Lab Interpretation (test code = Abnormal 17128-5) [facility] GLUCOSE (AUTOMATED)2021-03-05 21:32:59 Test Item Value Reference Range Interpretation Comments POCT GLU (test code = 5572494390) 121 mg/dL 70-110 H Lab Interpretation (test code = Abnormal 51461-5) [facility] Draw within 30 minutes prior to 4TH dose.2021-03-05 17:44:58 Test Item Value Reference Range Interpretation Comments VANCO TROUGH (test code 15.3 ug/mL 10.0-20.0 = 8360130274) SERGIO (test code = SERGIO) Toxic Range: ?>20 ug/mL 15-20 ug/mL is recommended for severe infection or when Vancomycin DALIA is greater than or equal to 2. Lab Interpretation (test Normal code = 29967-6) [facility] - Draw within 30 minutes prior to 4TH dose.2021-03-05 17:44:58 Test Item Value Reference Range Interpretation Comments VANCO TROUGH (test code 15.3 ug/mL 10.0-20.0 = 1356155549) SERGIO (test code = SERGIO) Toxic Range: ?>20 ug/mL 15-20 ug/mL is recommended for severe infection or when Vancomycin DALIA is greater than or equal to 2. Lab Interpretation (test Normal code = 36464-4) [facility] GLUCOSE (AUTOMATED)2021-03-05 15:24:59 Test Item Value Reference Range Interpretation Comments POCT GLU (test code = 4172192445) 94 mg/dL 70-110 Lab Interpretation (test code = Normal 02906-2) [facility] GLUCOSE (AUTOMATED)2021-03-05 15:24:59 Test Item Value Reference Range Interpretation Comments POCT GLU (test code = 6270822020) 94 mg/dL 70-110 Lab Interpretation (test code = Normal 46716-6) [facility] GLUCOSE (AUTOMATED)2021-03-05 12:44:06 Test Item Value Reference Range Interpretation Comments POCT GLU (test code = 3347355656) 70 mg/dL 70-110 Lab Interpretation (test code = Normal 12175-4) [facility]21-[facility]-05 12:44:06 Test Item Value Reference Range Interpretation Comments POCT GLU (test code = 8526732321) 70 mg/dL 70-110 Lab Interpretation (test code = Normal 18257-5) [facility] METABOLIC PANEL (NA, K, CL, CO2, GLUCOSE, BUN, CREATININE, CA)2021-03-05 07:33:07 Test Item Value Reference Range Interpretation Comments NA (test code = 139 mmol/L 135-145 8799579290) K (test code = 4.4 mmol/L 3.5-5.0 1313589788) CL (test code = 103 mmol/L 98-108 1754643837) CO2 TOTAL (test code = 31 mmol/L 23-31 0673434944) AGAP (test code = 2-16 6167145316) BUN (test code = 25 mg/dL 7-23 H 1206045257) GLUCOSE (test code = 97 mg/dL 70-110 1414847934) CREATININE (test code = 0.59 mg/dL 0.50-1.04 6750141676) CALCIUM (test code = 8.5 mg/dL 8.6-10.6 L 2877905190) eGFR (test code = mL/min/1.73m2 7813466242) SERGIO (test code = SERGIO) Association of Glomerular Filtration Rate (GFR) and Staging of Kidney Disease* + --+ --+ ------+| GFR (mL/min/1.73 m2) ?| With Kidney Damage ?| ?Without Kidney Damage+ --------+ --------+ +| ?>90 ?| ?Stage one ?| ? Normal ?+ ---+ ---+ -------+| ?60-89 ?| ?Stage two ?| ? Decreased GFR ? + --+ --+ ------+| ?30-59 ?| ?Stage three ?| ? Stage three ? + --+ --+ ------+| ?15-29 ?| ?Stage four ? | ? Stage four ?+ ---+ ---+ -------+| ?<15 (or dialysis) ? ?| ?Stage five ? | ? Stage five ?+ ---+ ---+ -------+ *Each stage assumes the associated GFR level has been in effect for at least three months. ?Stages 1 to 5, with or without kidney disease, indicate chronic kidney disease. Notes: Determination of stages one and two (with eGFR >59mL/min/1.73 m2) requires estimation of kidney damage for at least three months as defined by structural or functional abnormalities of the kidney, manifested by either:Pathological abnormalities or Markers of kidney damage (including abnormalities in the composition of the blood or urine or abnormalities in imaging tests). Lab Interpretation Abnormal (test code = 55686-0) [facility] METABOLIC PANEL (NA, K, CL, CO2, GLUCOSE, BUN, CREATININE, CA)2021-03-05 07:33:07 Test Item Value Reference Range Interpretation Comments NA (test code = 139 mmol/L 135-145 3424166928) K (test code = 4.4 mmol/L 3.5-5.0 8315552704) CL (test code = 103 mmol/L 98-108 8924026734) CO2 TOTAL (test code = 31 mmol/L 23-31 7398453096) AGAP (test code = 2-16 0629938460) BUN (test code = 25 mg/dL 7-23 H 6454721011) GLUCOSE (test code = 97 mg/dL 70-110 7983661335) CREATININE (test code = 0.59 mg/dL 0.50-1.04 4022279035) CALCIUM (test code = 8.5 mg/dL 8.6-10.6 L 0568853472) eGFR (test code = mL/min/1.73m2 5580804088) SERGIO (test code = SERGIO) Association of Glomerular Filtration Rate (GFR) and Staging of Kidney Disease* + --+ --+ ------+| GFR (mL/min/1.73 m2) ?| With Kidney Damage ?| ?Without Kidney Damage+ --------+ --------+ +| ?>90 ?| ?Stage one ?| ? Normal ?+ ---+ ---+ -------+| ?60-89 ?| ?Stage two ?| ? Decreased GFR ? + --+ --+ ------+| ?30-59 ?| ?Stage three ?| ? Stage three ? + --+ --+ ------+| ?15-29 ?| ?Stage four ? | ? Stage four ?+ ---+ ---+ -------+| ?<15 (or dialysis) ? ?| ?Stage five ? | ? Stage five ?+ ---+ ---+ -------+ *Each stage assumes the associated GFR level has been in effect for at least three months. ?Stages 1 to 5, with or without kidney disease, indicate chronic kidney disease. Notes: Determination of stages one and two (with eGFR >59mL/min/1.73 m2) requires estimation of kidney damage for at least three months as defined by structural or functional abnormalities of the kidney, manifested by either:Pathological abnormalities or Markers of kidney damage (including abnormalities in the composition of the blood or urine or abnormalities in imaging tests). Lab Interpretation Abnormal (test code = 92474-3) [facility] WITH [id number] 07:23:45 Test Item Value Reference Range Interpretation Comments WBC (test code = See_Comment [Automated message] 6690-2) The system [employer] generated this result transmitted ref erence range: 4.30 - 1 1.10 10*3/?L. The re ference range was not u sed to interpret this result as normal/abnor mal. RBC (test code = See_Comment [Automated message] 339-8) The system [employer] generated this result transmitted ref erence range: 3.93 - 5 .25 10*6/?L. The re ference range was not u sed to interpret this result as normal/abnor mal. HGB (test code = 11.6 g/dL 11.6-15.0 718-7) HCT (test code = 35.8 % 35.7-45.2 4544-3) MCV (test code = 91.1 fL 80.6-95.5 787-2) MCH (test code = 29.5 pg 25.9-32.8 785-6) MCHC (test code = 32.4 g/dL 31.6-35.1 786-4) RDW-SD (test code 42.1 fL 39.0-49.9 = 97696-6) RDW-CV (test code 12.6 % 12.0-15.5 = 788-0) PLT (test code = See_Comment [Automated message] 777-3) The system whic h generated this result transmitted ref erence range: 166 - 35 8 10*3/?L. The re ference range was not u sed to interpret this result as normal/abnor mal. MPV (test code = 10.1 fL 9.5-12.9 61905-6) NRBC/100 WBC (test See_Comment [Automat ed message] code = 5000998277) The syste m which generated this result transmitted ref erence range: 0.0 - 10 .0 /100 WBCs. The refer ence range was not u sed to interpret this result as normal/abnor mal. NRBC x10^3 (test <0.01 See_Comment [Automated message] code = 4756499172) The syste m which generated this result transmitted ref erence range: 10*3/?L. The reference range was not used to interpr et this result as normal/abnormal . GRAN MAT (NEUT) % 67.9 % (test code = 770-8) IMM GRAN % (test 0.30 % code = 9754850571) LYMPH % (test code 19.1 % = 736-9) MONO % (test code 8.4 % = 5905-5) EOS % (test code = 3.9 % 713-8) BASO % (test code 0.4 % = 706-2) GRAN MAT 6.42 10*3/uL 1.88-7.09 x10^3(ANC) (test code = 5010837137) IMM GRAN x10^3 0.03 10*3/uL 0.00-0.06 (test code = 0415469294) LYMPH x10^3 (test 1.81 10*3/uL 1.32-3.29 code = 731-0) MONO x10^3 (test 0.80 10*3/uL 0.33-0.92 code = 742-7) EOS x10^3 (test 0.37 10*3/uL 0.03-0.39 code = 711-2) BASO x10^3 (test 0.04 10*3/uL 0.01-0.07 code = 704-7) [facility] WITH [id number] 07:23:45 Test Item Value Reference Range Interpretation Comments WBC (test code = See_Comment [Automated message] 6690-2) The system [employer] generated this result transmitted ref erence range: 4.30 - 1 1.10 10*3/?L. The re ference range was not u sed to interpret this result as normal/abnor mal. RBC (test code = See_Comment [Automated message] 789-8) The system [employer] generated this result transmitted ref erence range: 3.93 - 5 .25 10*6/?L. The re ference range was not u sed to interpret this result as normal/abnor mal. HGB (test code = 11.6 g/dL 11.6-15.0 718-7) HCT (test code = 35.8 % 35.7-45.2 4544-3) MCV (test code = 91.1 fL 80.6-95.5 787-2) MCH (test code = 29.5 pg 25.9-32.8 785-6) MCHC (test code = 32.4 g/dL 31.6-35.1 786-4) RDW-SD (test code 42.1 fL 39.0-49.9 = 75704-1) RDW-CV (test code 12.6 % 12.0-15.5 = 788-0) PLT (test code = See_Comment [Automated message] 777-3) The system [employer] generated this result transmitted ref erence range: 166 - 35 8 10*3/?L. The re ference range was not u sed to interpret this result as normal/abnor mal. MPV (test code = 10.1 fL 9.5-12.9 96214-2) NRBC/100 WBC (test See_Comment [Automat ed message] code = 8859641679) The syste [employer] which generated this result transmitted ref erence range: 0.0 - 10 .0 /100 WBCs. The refer ence range was not u sed to interpret this result as normal/abnor mal. NRBC x10^3 (test <0.01 See_Comment [Automated message] code = 8028481325) The syste m which generated this result transmitted ref erence range: 10*3/?L. The reference range was not used to interpr et this result as normal/abnormal . GRAN MAT (NEUT) % 67.9 % (test code = 770-8) IMM GRAN % (test 0.30 % code = 9528439483) LYMPH % (test code 19.1 % = 736-9) MONO % (test code 8.4 % = 5905-5) EOS % (test code = 3.9 % 713-8) BASO % (test code 0.4 % = 706-2) GRAN MAT 6.42 10*3/uL 1.88-7.09 x10^3(ANC) (test code = 6701710826) IMM GRAN x10^3 0.03 10*3/uL 0.00-0.06 (test code = 7572974405) LYMPH x10^3 (test 1.81 10*3/uL 1.32-3.29 code = 731-0) MONO x10^3 (test 0.80 10*3/uL 0.33-0.92 code = 742-7) EOS x10^3 (test 0.37 10*3/uL 0.03-0.39 code = 711-2) BASO x10^3 (test 0.04 10*3/uL 0.01-0.07 code = 704-7) [facility] GLUCOSE (AUTOMATED)2021-03-05 01:43:32 Test Item Value Reference Range Interpretation Comments POCT GLU (test code = 1205229618) 109 mg/dL 70-110 Lab Interpretation (test code = Normal 92752-8) [facility] GLUCOSE (AUTOMATED)2021-03-05 01:43:32 Test Item Value Reference Range Interpretation Comments POCT GLU (test code = 5631044479) 109 mg/dL 70-110 Lab Interpretation (test code = Normal 44236-0) [facility] GLUCOSE (AUTOMATED)2021-03-04 22:19:26 Test Item Value Reference Range Interpretation Comments POCT GLU (test code = 3377481870) 103 mg/dL 70-110 Lab Interpretation (test code = Normal 03530-2) [facility] GLUCOSE (AUTOMATED)2021-03-04 22:19:26 Test Item Value Reference Range Interpretation Comments POCT GLU (test code = 2120549798) 103 mg/dL 70-110 Lab Interpretation (test code = Normal 96456-6) [facility] [id number] 19:00:52 No radiographic evidence of acute cardiopulmonary process. Preliminary Report Dictated by Resident:David Weinstein MD., have reviewed this study and agree with the abovereport.EXAM: XR CHEST 2 VW COMPARISON: None. HISTORY: pre op FINDINGS: Lungs: The lungs are clear. No focal opacities. No pleural abnormalitiesare detected. Heart/Mediastinum: The cardiomediastinal silhouette is normal in size. Bones and soft tissues: No focal osseous lesions are identified. Noacuteosseous findings. [facility], Radiant Results Inft User - 03/04/2021 2:02 PM CDT EXAM: XR CHEST 2 VWCOMPARISON: None.HISTORY: pre op FINDINGS:L ungs: The lungs are clear. No focal opacities. No pleural abnormalitiesare detected.Heart/Mediastinum: The cardiomediastinal silhouette is normal in size.Bones and soft tissues: No focal osseous lesions are identified. No acuteosseous findings.IMPRESSIONNo radiographic evidence of acute cardiopulmonary process.Preliminary Report Dictated by Resident: David Sandoval MD., have reviewed this study and agree with the abovereport.[facility] [id number] 19:00:52 No radiographic evidence of acute cardiopulmonary process. Preliminary Report Dictated by Resident:David Weinstein MD., have reviewed this study and agree with the abovereport.EXAM: XR CHEST 2 VW COMPARISON: None. HISTORY: pre op FINDINGS: Lungs: The lungs are cl ear. No focal opacities. No pleural abnormalitiesare detected. Heart/Mediastinum: The cardiomediastinal silhouette is normal in size. Bones and soft tissues: No focal osseous lesions are identified. Noacuteosseous findings. [facility], Radiant Results Inft User - 03/04/2021 2:02 PM CDT EXAM: XR CHEST 2 VWCOMPARISON: None.HISTORY: pre op FINDINGS:Lungs: The lungs are clear. No focal opacities. No pleural abnormalitiesare detected.Heart/Mediastinum: The cardiomediastinal silhouette is normal in size.Bones and soft tissues: No focal osseous lesions are identified. No acuteosseous findings.IMPRESSIONNo radiographic evidence of acute cardiopulmonary process.Preliminary Report Dictated by Resident: [place], David Torres MD., have reviewed this study and agree with the abovereport.[facility]ball[facility]SA / MSSA SCREEN BY PCR, [id number] 17:00:29 Test Item Value Reference Range Interpretation Comments MSSA Screen by PCR, Positive Negative A Nares (test code = 05542-0) MRSA/MSSA Positive? Yes No A (test code = 7205163168) SERGIO (test code = SERGIO) A positive test result does not necessarily indicate the presence of viable organism. Lab Interpretation (test Abnormal code = 30495-3) [facility] / MSSA SCREEN BY PCR, [id number] 17:00:29 Test Item Value Reference Range Interpretation Comments MSSA Screen by PCR, Positive Negative A Nares (test code = 08213-8) MRSA/MSSA Positive? Yes No A (test code = 5975864095) SERGIO (test code = SERGIO) A positive test result does not necessarily indicate the presence of viable organism. Lab Interpretation (test Abnormal code = 75154-0) [facility] GLUCOSE (AUTOMATED)2021-03-04 17:00:19 Test Item Value Reference Range Interpretation Comments POCT GLU (test code = 0407078536) 81 mg/dL 70-110 Lab Interpretation (test code = Normal 51312-0) [facility] GLUCOSE (AUTOMATED)2021-03-04 17:00:19 Test Item Value Reference Range Interpretation Comments POCT GLU (test code = 9770388194) 81 mg/dL 70-110 Lab Interpretation (test code = Normal 41703-7) [facility] [id number] 13:19:28 Test Item Value Reference Range Interpretation Comments CRP (test code = 0541896920) 10.8 mg/dL <0.8 H Lab Interpretation (test code = Abnormal 33754-9) [facility] [id number] 13:19:28 Test Item Value Reference Range Interpretation Comments CRP (test code = 3508711490) 10.8 mg/dL <0.8 H Lab Interpretation (test code = Abnormal 36616-2) [facility] GLUCOSE (AUTOMATED)2021-03-04 12:23:06 Test Item Value Reference Range Interpretation Comments POCT GLU (test code = 2073815393) 81 mg/dL 70-110 Lab Interpretation (test code = Normal 92365-3) [facility] GLUCOSE (AUTOMATED)2021-03-04 12:23:06 Test Item Value Reference Range Interpretation Comments POCT GLU (test code = 8543237225) 81 mg/dL 70-110 Lab Interpretation (test code = Normal 83548-5) [facility] GLUCOSE (AUTOMATED)2021-03-04 04:44:31 Test Item Value Reference Range Interpretation Comments POCT GLU (test code = 9663855744) 72 mg/dL 70-110 Lab Interpretation (test code = Normal 91919-9) [facility] GLUCOSE (AUTOMATED)2021-03-04 04:44:31 Test Item Value Reference Range Interpretation Comments POCT GLU (test code = 3064921562) 72 mg/dL 70-110 Lab Interpretation (test code = Normal 56622-4) [facility] [id number] 04:36:06 Test Item Value Reference Range Interpretation Comments ESR (test code = See_Comment H [Automated message] 2145408745) The system [employer] generated this result transmitted ref erence range: 0 - 20 m m/HR. The reference r maría was not used to interpret this result as normal/abnor mal. Lab Interpretation (test Abnormal code = 27612-5) [facility] [id number] 04:36:06 Test Item Value Reference Range Interpretation Comments ESR (test code = See_Comment H [Automated message] 8802366667) The system [employer] generated this result transmitted ref erence range: 0 - 20 m m/HR. The reference r maría was not used to interpret this result as normal/abnor mal. Lab Interpretation (test Abnormal code = 34056-6) [facility] METABOLIC PANEL (NA, K, CL, CO2, GLUCOSE, BUN, CREATININE, CA)2021-03-04 04:07:28 Test Item Value Reference Range Interpretation Comments NA (test code = 137 mmol/L 135-145 7233625148) K (test code = 3.8 mmol/L 3.5-5.0 0673066117) CL (test code = 104 mmol/L 98-108 [id number]) CO2 TOTAL (test code = 20 mmol/L 23-31 L 9738873412) AGAP (test code = 2-16 2311261914) BUN (test code = 18 mg/dL 7-23 3161649222) GLUCOSE (test code = 56 mg/dL 70-110 L 5349695368) CREATININE (test code = 0.45 mg/dL 0.50-1.04 L 4314555972) CALCIUM (test code = 7.3 mg/dL 8.6-10.6 L 2401740668) eGFR (test code = mL/min/1.73m2 5474276660) SERGIO (test code = SERGIO) Association of Glomerular Filtration Rate (GFR) and Staging of Kidney Disease* + --+ --+ ------+| GFR (mL/min/1.73 m2) ?| With Kidney Damage ?| ?Without Kidney Damage+ --------+ --------+ +| ?>90 ?| ?Stage one ?| ? Normal ?+ ---+ ---+ -------+| ?60-89 ?| ?Stage two ?| ? Decreased GFR ? + --+ --+ ------+| ?30-59 ?| ?Stage three ?| ? Stage three ? + --+ --+ ------+| ?15-29 ?| ?Stage four ? | ? Stage four ?+ ---+ ---+ -------+| ?<15 (or dialysis) ? ?| ?Stage five ? | ? Stage five ?+ ---+ ---+ -------+ *Each stage assumes the associated GFR level has been in effect for at least three months. ?Stages 1 to 5, with or without kidney disease, indicate chronic kidney disease. Notes: Determination of stages one and two (with eGFR >59mL/min/1.73 m2) requires estimation of kidney damage for at least three months as defined by structural or functional abnormalities of the kidney, manifested by either:Pathological abnormalities or Markers of kidney damage (including abnormalities in the composition of the blood or urine or abnormalities in imaging tests). Lab Interpretation Abnormal (test code = 08070-9) [facility] Test Item Value Reference Range Interpretation Comments MAGNESIUM (test code = 8273160687) 1.3 mg/dL 1.7-2.4 L Lab Interpretation (test code = Abnormal 38553-0) [facility] METABOLIC PANEL (NA, K, CL, CO2, GLUCOSE, BUN, CREATININE, CA)2021-03-04 04:07:28 Test Item Value Reference Range Interpretation Comments NA (test code = 137 mmol/L 135-145 6265650159) K (test code = 3.8 mmol/L 3.5-5.0 2106868159) CL (test code = 104 mmol/L 98-108 0346430486) CO2 TOTAL (test code = 20 mmol/L 23-31 L 9251451407) AGAP (test code = 2-16 8409634777) BUN (test code = 18 mg/dL 7-23 5694798847) GLUCOSE (test code = 56 mg/dL 70-110 L 3433548422) CREATININE (test code = 0.45 mg/dL 0.50-1.04 L 4893799762) CALCIUM (test code = 7.3 mg/dL 8.6-10.6 L 7626937691) eGFR (test code = mL/min/1.73m2 2218246558) SERGIO (test code = SERGIO) Association of Glomerular Filtration Rate (GFR) and Staging of Kidney Disease* + --+ --+ ------+| GFR (mL/min/1.73 m2) ?| With Kidney Damage ?| ?Without Kidney Damage+ --------+ --------+ +| ?>90 ?| ?Stage one ?| ? Normal ?+ ---+ ---+ -------+| ?60-89 ?| ?Stage two ?| ? Decreased GFR ? + --+ --+ ------+| ?30-59 ?| ?Stage three ?| ? Stage three ? + --+ --+ ------+| ?15-29 ?| ?Stage four ? | ? Stage four ?+ ---+ ---+ -------+| ?<15 (or dialysis) ? ?| ?Stage five ? | ? Stage five ?+ ---+ ---+ -------+ *Each stage assumes the associated GFR level has been in effect for at least three months. ?Stages 1 to 5, with or without kidney disease, indicate chronic kidney disease. Notes: Determination of stages one and two (with eGFR >59mL/min/1.73 m2) requires estimation of kidney damage for at least three months as defined by structural or functional abnormalities of the kidney, manifested by either:Pathological abnormalities or Markers of kidney damage (including abnormalities in the composition of the blood or urine or abnormalities in imaging tests). Lab Interpretation Abnormal (test code = 42257-5) [facility] 04:07:28 Test Item Value Reference Range Interpretation Comments MAGNESIUM (test code = 9830133287) 1.3 mg/dL 1.7-2.4 L Lab Interpretation (test code = Abnormal 41769-7) [facility]2021-03-04 04:00:00 Test Item Value Reference Range Interpretation Comments HGB A1C (test code = 5.0 % 4.0-5.7 4548-4) SERGIO (test code = ESRGIO) Reference RangesNormal: <5.7%Prediabetes: 5.7 - 6.4%Diabetes: > 6.5% Lab Interpretation (test Normal code = 70065-4) [facility]2021-03-04 04:00:00 Test Item Value Reference Range Interpretation Comments HGB A1C (test code = 5.0 % 4.0-5.7 4548-4) SERGIO (test code = SERGIO) Reference RangesNormal: <5.7%Prediabetes: 5.7 - 6.4%Diabetes: > 6.5% Lab Interpretation (test Normal code = 06149-3) [facility] [id number] 03:48:43 Test Item Value Reference Range Interpretation Comments WBC (test code = See_Comment [Automated 6690-2) message] The sy stem which generated this result transmitted reference range : 4.30 - 11.10 10*3/?L. The reference range was not used to interpret this result as normal/abnormal . RBC (test code = See_Comment L [Automated 789-8) message] The sy stem which generated this result transmitted reference range : 3.93 - 5.25 10*6/?L. The reference range was not used to interpret this result as normal/abnormal . HGB (test code = 11.2 g/dL 11.6-15.0 L 718-7) HCT (test code = 34.2 % 35.7-45.2 L 4544-3) MCV (test code = 91.9 fL 80.6-95.5 787-2) MCH (test code = 30.1 pg 25.9-32.8 785-6) MCHC (test code = 32.7 g/dL 31.6-35.1 786-4) RDW-SD (test code = 42.2 fL 39.0-49.9 32017-2) RDW-CV (test code = 12.4 % 12.0-15.5 788-0) PLT (test code = See_Comment [Automated 777-3) message] The sy stem which generated this result transmitted reference range : 166 - 358 10*3/ ?L. The reference r maría was not used to interpret this result as normal/abnormal . MPV (test code = 10.1 fL 9.5-12.9 05888-4) NRBC/100 WBC (test See_Comment [Automat ed code = 1799482195) message] The system which generated this result transmitted reference range : 0.0 - 10.0 /100 WBCs. The refer ence range was not u sed to interpret th is result as normal/abnormal . NRBC x10^3 (test code <0.01 See_Comment [Auto mated = 2080308448) message] The s ystem which generated this result transmitted reference range : 10*3/?L. The reference range was not used to interpret this result as normal/abnormal . GRAN MAT (NEUT) % 83.9 % (test code = 770-8) IMM GRAN % (test code 0.40 % = 8401505814) LYMPH % (test code = 9.6 % 736-9) MONO % (test code = 5.6 % 5905-5) EOS % (test code = 0.2 % 713-8) BASO % (test code = 0.3 % 706-2) GRAN MAT x10^3(ANC) 8.78 10*3/uL 1.88-7.09 H (test code = 3189253900) IMM GRAN x10^3 (test 0.04 10*3/uL 0.00-0.06 code = 3823879937) LYMPH x10^3 (test code 1.00 10*3/uL 1.32-3.29 L = 731-0) MONO x10^3 (test code 0.59 10*3/uL 0.33-0.92 = 742-7) EOS x10^3 (test code = <0.03 0.03-0.39 L 711-2) BASO x10^3 (test code 0.03 10*3/uL 0.01-0.07 = 704-7) Lab Interpretation Abnormal (test code = 09261-0) [facility] WITH [id number] 03:48:43 Test Item Value Reference Range Interpretation Comments WBC (test code = See_Comment [Automated 6690-2) message] The sy stem which generated this result transmitted reference range : 4.30 - 11.10 10*3/?L. The reference range was not used to interpret this result as normal/abnormal . RBC (test code = See_Comment L [Automated 789-8) message] The sy stem which generated this result transmitted reference range : 3.93 - 5.25 10*6/?L. The reference range was not used to interpret this result as normal/abnormal . HGB (test code = 11.2 g/dL 11.6-15.0 L 718-7) HCT (test code = 34.2 % 35.7-45.2 L 4544-3) MCV (test code = 91.9 fL 80.6-95.5 787-2) MCH (test code = 30.1 pg 25.9-32.8 785-6) MCHC (test code = 32.7 g/dL 31.6-35.1 786-4) RDW-SD (test code = 42.2 fL 39.0-49.9 16518-2) RDW-CV (test code = 12.4 % 12.0-15.5 788-0) PLT (test code = See_Comment [Automated 777-3) message] The sy stem which generated this result transmitted reference range : 166 - 358 10*3/ ?L. The reference r maría was not used to interpret this result as normal/abnormal . MPV (test code = 10.1 fL 9.5-12.9 53639-8) NRBC/100 WBC (test See_Comment [Automat ed code = 7399882436) message] The system which generated this result transmitted reference range : 0.0 - 10.0 /100 WBCs. The refer ence range was not u sed to interpret th is result as normal/abnormal . NRBC x10^3 (test code <0.01 See_Comment [Auto mated = 5086388420) message] The s ystem which generated this result transmitted reference range : 10*3/?L. The reference range was not used to interpret this result as normal/abnormal . GRAN MAT (NEUT) % 83.9 % (test code = 770-8) IMM GRAN % (test code 0.40 % = 6725233797) LYMPH % (test code = 9.6 % 736-9) MONO % (test code = 5.6 % 5905-5) EOS % (test code = 0.2 % 713-8) BASO % (test code = 0.3 % 706-2) GRAN MAT x10^3(ANC) 8.78 10*3/uL 1.88-7.09 H (test code = 6434358939) IMM GRAN x10^3 (test 0.04 10*3/uL 0.00-0.06 code = 1673782167) LYMPH x10^3 (test code 1.00 10*3/uL 1.32-3.29 L = 731-0) MONO x10^3 (test code 0.59 10*3/uL 0.33-0.92 = 742-7) EOS x10^3 (test code = <0.03 0.03-0.39 L 711-2) BASO x10^3 (test code 0.03 10*3/uL 0.01-0.07 = 704-7) Lab Interpretation Abnormal (test code = 76814-6) [facility] GLUCOSE (AUTOMATED)2021-03-04 02:39:42 Test Item Value Reference Range Interpretation Comments POCT GLU (test code = 8730911981) 68 mg/dL 70-110 L Lab Interpretation (test code = Abnormal 99780-4) [facility] GLUCOSE (AUTOMATED)2021-03-04 02:39:42 Test Item Value Reference Range Interpretation Comments POCT GLU (test code = 8596594768) 68 mg/dL 70-110 L Lab Interpretation (test code = Abnormal 98225-7) [facility] [id number] 19:24:31HISTORY: Replaced G- tube. FINDINGS: Portable AP supine view of abdomen obtained after contrast mediuminjected in the emergency room through the replaced gastrostomy tube.Contrast medium is seen in the fundus and body of the stomach with smallsmall amount in the antrum. Contrast medium noted in the collecting system of both kidneys as well asin the moderately distended urinary bladder. CONCLUSIONS: Gastrostomy tube appears to be in good position. [facility], Radiant Results Inft 04/04/2020 2:25 PM CDTHISTORY: Replaced G-tube.FINDINGS: Portable AP supine view of abdomen obtained after contrast mediuminjected in the emergency room through the replaced gastrostomy tube.Contrast medium is seen in the fundus and body of the stomach with smallsmall amount in the antrum.Contrast medium noted in the collecting system of both kidneys as well asin the moderately distended urinary bladder.CONCLUSIONS: Gastrostomy tube appears to be in good position.[facility] 2020-04-04 18:17:33CT Abdomen and Pelvis with intravenous contrast. CLINICAL HISTORY: Generalized abdominal pain. DOSE:Up-to-date CT equipment and radiation dose reduction techniques wereemployed. CTDIvol: 3.67 mGy. DLP: 189 mGy-cm. TECHNIQUE : Contiguous axial imaging from the level of the lung basesthrough the pubic symphysis were performed after the uncomplicatedadministration of Omnipaque contrast material. Coronal and sagittalreconstructions were obtained. Auto mA and/or iterative reconstruction wereused to reduce radiation dose. FINDINGS: ? Lower lungs: Minimal congestion/atelectatic changes in the left lower lung.No pleural effusion or pericardial effusion. Liver, Gallbladder and Spleen: S/P cholecystectomy.Mild generalizeddilatation of biliary ducts noted, likely combination of patient's age andcholecystectomy. No focal enhancing lesions visualized in the liver or inthe spleen. Peritoneum: ?No free air or free fluid. No lymphadenopathy. Pancreas and Adrenals: ?Unremarkable pancreas and adrenal glands. Kidneys and Ureters: ?No visible calculi in the renal collecting systems. No hydroureter or hydronephrosis. Vessels: Mild diffuse atherosclerosis. Retroperitoneum: No abnormal fluid or lymphadenopathy. Bowel: Gastrostomy feeding tube is in good position. Constipation notedwith retained fecal material throughout the large bowel, more in thesigmoid colon. Bladder and Reproductive Organs: Moderately distended urinary bladder. S/Physterectomy. Bones: Suspect bony erosions involving both right and left anteriorinferior iliac spines and lateral cortex of proximal subtrochantericportion of the right humeralshaft, dorsal cortex of left femoral shaft.External moderate degenerative disc disease noted at L4-L5 and L5-S1. Soft tissues: Unremarkable. CONCLUSION:1. No acute intra-abdominal or pelvic abnormalities detected.2. Feeding gastrostomy tube appears to be in good position.3. S/P cholecystectomy and S/P hysterectomy.4. Constipation.5. Bony erosions are seen involving right and left anterior inferior iliacspines as well as the right and left humeral shaft, of unknown etiology.Whole body bone scan imaging suggested. [facility], Radiant Results Inft User - 04/04/2020 1:18 PM CDTCT Abdomen and Pelvis with intravenous contrast.CLINICAL HISTORY: Generalized abdominal pain.DOSE: Up-to-date CT equipment and radiation dose reduction techniques wereemployed. CTDIvol: 3.67 mGy. DLP: 189 mGy-cm.TECHNIQUE : Contiguous axial imaging from the level of the lung basesthrough the pubic symphysis were performed after the u ncomplicatedadministration of Omnipaque contrast material. Coronal and sagittalreconstructions were obtained. Auto mA and/or iterative reconstruction wereused to reduce radiation dose.FINDINGS: Lower lungs: Minimal congestion/atelectatic changes in the left lower lung.No pleural effusion or pericardial effusion.Liver, Gallbladder and Spleen: S/P cholecystectomy. Mild generalizeddilatation of biliary ducts noted, likely combination of patient's age andcholecystectomy. No focal enhancing lesions visualized in the liver or inthe spleen.Peritoneum: No free air or free fluid. No lymphadenopathy.Pancreas and Adrenals: Unremarkable pancreas and adrenal glands.Kidneys and Ureters: No visible calculi in the renal collecting systems. No hydroureter or hydronephrosis. Vessels: Mild diffuse atherosclerosis.Retroperitoneum: No abnormal fluid or lymphadenopathy.Bowel: Gastrostomy feeding tube is in good position. Constipation notedwith retained fecal material throughout the large bowel, more in thesigmoid colon.Bladder and Reproductive Organs: Moderately distended urinary bladder. S/Physterectomy.Bones: Suspect bony erosions involving both right and left anteriorinferior iliac spines and lateral cortex of proximal subtrochantericportion of the right humeral shaft, dorsal cortex of left femoral shaft.External moderate degenerative disc disease noted at L4-L5 and L5-S1.Soft tissues: Unremarkable.CONCLUSION:1. No acute intra-abdominal or pelvic abnormalities detected.2. Feeding gastrostomy tube appears to be in good position.3. S/P cholecystectomy and S/P hysterectomy.4. Constipation.5. Bony erosions are seen involving right and left anterior inferior iliacspines as well as the right and left humeral shaft, of unknown etiology.Whole body bone scan imaging suggested.[facility]. METABOLIC PANEL (99690)2020-04-04 17:13:00 Test Item Value Reference Range Interpretation Comments NA (test code = 136 mmol/L 135-145 2516300772) K (test code = 4.2 mmol/L 3.5-5 0517816531) CL (test code = 102 mmol/L 98-108 6854075708) CO2 TOTAL (test code = 29 mmol/L 23-31 0747858737) AGAP (test code = 2-16 6499357149) BUN (test code = 25 mg/dL 7-23 H 9729894283) GLUCOSE (test code = 99 mg/dL 70-110 1344649551) CREATININE (test code = 0.70 mg/dL 0.5-1.04 1426410983) TOTAL BILI (test code = 0.6 mg/dL 0.1-1.3 6795592051) CALCIUM (test code = 9.7 mg/dL 8.6-10.6 6840278872) T PROTEIN (test code = 7.8 g/dL 6.3-8.2 2375599205) ALBUMIN (test code = 3.9 g/dL 3.5-5 1372679083) ALK PHOS (test code = 77 U/L 34-122 0197413985) ALTv (test code = 10 U/L 5-35 1742-6) AST(SGOT) (test code = 24 U/L 13-40 8290924066) eGFR Calculation mL/min/1.73m2 (Non-) (test code = 3451787911) eGFR Calculation mL/min/1.73m2 () (test code = 7897627186) SERGIO (test code = SERGIO) Association of Glomerular Filtration Rate (GFR) and Staging of Kidney Disease* + --+ --+ ------+| GFR (mL/min/1.73 m2) ?| With Kidney Damage ?| ?Without Kidney Damage+ --------+ --------+ +| ?>90 ?| ?Stage one ?| ? Normal ?+ ---+ ---+ -------+| ?60-89 ?| ?Stage two ?| ? Decreased GFR ? + --+ --+ ------+| ?30-59 ?| ?Stage three ?| ? Stage three ? + --+ --+ ------+| ?15-29 ?| ?Stage four ? | ? Stage four ?+ ---+ ---+ -------+| ?<15 (or dialysis) ? ?| ?Stage five ? | ? Stage five ?+ ---+ ---+ -------+ *Each stage assumes the associated GFR level has been in effect for at least three months. ?Stages 1 to 5, with or without kidney disease, indicate chronic kidney disease. Notes: Determination of stages one and two (with eGFR >59mL/min/1.73 m2) requires estimation of kidney damage for at least three months as defined by structural or functional abnormalities of the kidney, manifested by either:Pathological abnormalities or Markers of kidney damage (including abnormalities in the composition of the blood or urine or abnormalities in imaging tests). Lab Interpretation Abnormal (test code = 69037-9) [facility] WITH [id number] 17:06:00 Test Item Value Reference Range Interpretation Comments WBC (test code = See_Comment [Automated message] 6690-2) The system [employer] generated this result transmitted ref erence range: 4.30 - 1 1.10 10*3/?L. The re ference range was not u sed to interpret this result as normal/abnor mal. RBC (test code = See_Comment [Automated message] 789-8) The system [employer] generated this result transmitted ref erence range: 3.93 - 5 .25 10*6/?L. The re ference range was not u sed to interpret this result as normal/abnor mal. HGB (test code = 13.7 g/dL 11.6-15 718-7) HCT (test code = 42.9 % 35.7-45.2 4544-3) MCV (test code = 90.9 fL 80.6-95.5 787-2) MCH (test code = 29.0 pg 25.9-32.8 785-6) MCHC (test code = 31.9 g/dL 31.6-35.1 786-4) RDW-SD (test code 45.1 fL 39-49.9 = 42132-2) RDW-CV (test code 13.4 % 12-15.5 = 788-0) PLT (test code = See_Comment [Automated message] 777-3) The system [employer] generated this result transmitted ref erence range: 166 - 35 8 10*3/?L. The re ference range was not u sed to interpret this result as normal/abnor mal. MPV (test code = 11.1 fL 9.5-12.9 11495-5) NRBC/100 WBC (test See_Comment [Automat ed message] code = 3060680612) The syste m which generated this result transmitted ref erence range: 0.0 - 10 .0 /100 WBCs. The refer ence range was not u sed to interpret this result as normal/abnor mal. NRBC x10^3 (test <0.01 See_Comment [Automated message] code = 9216880710) The syste m which generated this result transmitted ref erence range: 10*3/?L. The reference range was not used to interpr et this result as normal/abnormal . GRAN MAT (NEUT) % 69.1 % (test code = 770-8) IMM GRAN % (test 0.70 % code = 0545156052) LYMPH % (test code 20.0 % = 736-9) MONO % (test code 6.0 % = 5905-5) EOS % (test code = 3.7 % 713-8) BASO % (test code 0.5 % = 706-2) GRAN MAT 5.54 10*3/uL 1.88-7.09 x10^3(ANC) (test code = 2352817026) IMM GRAN x10^3 0.06 10*3/uL 0-0.06 (test code = 6354708096) LYMPH x10^3 (test 1.61 10*3/uL 1.32-3.29 code = 731-0) MONO x10^3 (test 0.48 10*3/uL 0.33-0.92 code = 742-7) EOS x10^3 (test 0.30 10*3/uL 0.03-0.39 code = 711-2) BASO x10^3 (test 0.04 10*3/uL 0.01-0.07 code = 704-7) [facility]"
[2023-03-23] MEDS ORDERED: CEFEPIME 2 GM VIAL ONE (20:18)
[2023-03-23] MEDS ORDERED: NA CHLORIDE 0.9% 1,000 ML ONE (20:19)
[2023-03-23] MEDS ORDERED: NA CHLORIDE 0.9% 100 ML ONE (20:19)
[2023-03-23 20:23] LABS: Absolute Lymphocytes (CBC) 0.5 K/uL (0.7-4.9); Hematocrit 36.4 % (36.0-45.0); Lymphocytes % 6.3 % (15.3-44.8); MCV 89.4 fL (80-100); MPV 7.8 fL (7.6-11.3); RBC Red Blood Cell Count 4.07 M/uL (3.86-4.86)
[2023-03-23 20:26] LABS: Protime INR 1.08
[2023-03-23 20:45] LABS: Albumin 2.9 g/dL (3.4-5.0); Bilirubin Total 0.2 mg/dL (0.2-1.0); Potassium 4.3 mEq/L (3.5-5.1); Protein, Total 7.9 g/dL (6.4-8.2)
--- NOTE | 2023-03-23 21:28 | RAD REPORT ---
EXAM DESCRIPTION: RADChest Single View03/23/2023 9:03 pm CLINICAL HISTORY: FEVER COMPARISON: Abdomen 1 View (KUB) dated 04/04/2021; Chest Single View dated 03/03/2021; Abdomen 1 View (KUB) dated 09/20/2020; Chest Single View dated 06/14/2020 TECHNIQUE: Portable AP view of the chest. FINDINGS: The lungs are clear. Stable to mildly improved central interstitial prominence. No pneumo thorax or effusion. The cardiomediastinal contours are unremarkable. IMPRESSION: No acute cardiopulmonary process.
[2023-03-23 22:29] LABS: Specific Gravity 1.007 (1.005-1.030); Urine Bacteria 20-50 /HPF (<20); Urine Bilirubin NEGATIVE (Negative); Urine Blood 2+ (Negative); Urine Clarity Extremely Turbid (Clear); Urine Color Light-Orange (Yellow); Urine Glucose NEGATIVE (Negative); Urine Mucus 2+ /HPF (None Seen); Urine Protein 1+ (Negative); Urine RBC >50 /HPF (None Seen); Urine Urobilinogen Normal (Normal); Urine pH 5.5 (5.0-7.0)
--- NOTE | 2023-03-23 22:53 | EDPHYS ---
Physician Documentation [facility] Name: Juana Navarro Age: 62 yrs Sex: Female : 1960 Arrival Date: 03/23/2023 Time: 19:37 Bed 7 Private MD: ED Physician Celsa Carmona HPI: 03/23 19:44 This 62 yrs old Female presents to ER via EMS with complaints of Fever. sp3 19:44 62-year-old female with history of diabetes, hypertension, bedbound and nonverbal sp3 presents to the ED via EMS for chief complaint fever as found by family at home. History and physical is limited due to patient being nonverbal however per EMS, patient felt warm and has had decreased energy compared to her baseline. No other history was able to be ascertained. Vital signs were normal and stable in route for EMS. Tmax at home was 101.2.. Historical: - PMHx: 19:43 bed bound; G Tube; nonverbal; NPO, aspiration; Hypertension; Diabetes - NIDDM; CVA; kd3 - PSHx: 19:43 Frandy BKA; G tube placement; kd3 - Immunization history:: Adult Immunizations up to date. - Social history:: Smoking status: unknown. ROS: 19:45 Unable to obtain ROS due to baseline dementia. sp3 Exam: 19:45 Constitutional: This is a well developed, well nourished patient who is awake, alert, sp3 and in no acute distress. Head/Face: Normocephalic, atraumatic. Neck: Trachea midline, no thyromegaly or masses palpated, and no cervical lymphadenopathy. Supple, full range of motion without nuchal rigidity, or vertebral point tenderness. No Meningismus. Chest/axilla: Normal chest wall appearance and motion. Nontender with no deformity. No lesions are appreciated. Cardiovascular: Regular rate and rhythm with a normal S1 and S2. No gallops, murmurs, or rubs. Normal PMI, no JVD. No pulse deficits. Respiratory: Lungs have equal breath sounds bilaterally, clear to auscultation and percussion. No rales, rhonchi or wheezes noted. No increased work of breathing, no retractions or nasal flaring. Abdomen/GI: Soft, non-tender, with normal bowel sounds. No distension or tympany. No guarding or rebound. No evidence of tenderness throughout. 19:45 ECG was reviewed by the Attending Physician. EKG demonstrates sinus tachycardia at 104 bpm with normal intervals, normal QRS, leftward axis, nonspecific diffuse ST/T wave changes without evidence of acute ischemia. 19:45 Musculoskeletal/extremity: Bilateral BKA's present. Grossly no decrease in peripheral capillary refill in the upper extremities.. 19:45 Neuro: Baseline nonverbal. Patient opens eyes and withdraws to pain.. Vital Signs: 19:39 BP 135 / 85; Pulse 104; Resp 18; Temp 99.4(O); Pulse Ox 95% on R/A; kd3 20:45 BP 135 / 61; Pulse 86; Resp 25; Pulse Ox 96% ; vc1 22:06 BP 113 / 49; Pulse 84; Resp 30; Pulse Ox 96% on R/A; vc1 22:30 BP 100 / 54; Pulse 76; Resp 27; Pulse Ox 97% ; vc1 MDM: 19:42 Patient medically screened. sp3 19:47 Data reviewed: vital signs, nurses notes, EMS record, old medical records. ED course: sp3 62-year-old female with PMH above now presents with fever. Will obtain sepsis work-up including UA, labs,'s chest x-ray, IV fluids, cultures, and administer antibiotics broad-spectrum as first dose. Likely admission depending on work-up and results.. 22:51 ED course: COVID-19 test is positive however patient had it 1 month ago. Possible sp3 residual RNA detected from the nasal passage. CBC and chemistries are normal. Urinalysis demonstrates significant UTI which likely caused patient's fever. WBC and creatinine are normal therefore we will safely discharge patient home on p.o. antibiotics. 1 dose of cefepime 2 g IV was also given in the ED. Urine cultures pending. I discussed this with family who are okay with the plan. Follow-up with PCP as needed.. 03/23 19:43 Order name: Blood Culture Adult (2) sp3 03/23 19:43 Order name: CBC with Diff; Complete Time: 21:03 sp3 03/23 19:43 Order name: CMP; Complete Time: 21:03 sp3 03/23 19:43 Order name: Lactate w/ 2H reflex if indic.; Complete Time: 21:03 sp3 03/23 19:43 Order name: Protime (+inr); Complete Time: 21:03 sp3 03/23 19:43 Order name: Urinalysis w/ reflexes; Complete Time: 22:50 sp3 03/23 19:47 Order name: Flu; Complete Time: 21:03 sp3 03/23 19:47 Order name: SARS-COV-2 RT PCR; Complete Time: 21:03 sp3 03/23 22:35 Order name: Urine Culture [facility] 03/23 19:43 Order name: Chest Single View XRAY; Complete Time: 22:29 sp3 03/23 19:43 Order name: EKG; Complete Time: 19:44 sp3 03/23 19:43 Order name: Cardiac monitoring; Complete Time: 20:14 sp3 03/23 19:43 Order name: EKG - Nurse/Tech; Complete Time: 19:44 sp3 03/23 19:43 Order name: IV Saline Lock - Large Bore; Complete Time: 20:14 sp3 03/23 19:43 Order name: Labs collected and sent; Complete Time: 20:14 sp3 03/23 19:43 Order name: O2 Per Protocol; Complete Time: 20:14 sp3 03/23 19:43 Order name: O2 Sat Monitoring; Complete Time: 20:14 sp3 03/23 19:43 Order name: Vital Signs; Complete Time: 19:44 sp3 Administered Medications: 20:14 Drug: NS 0.9% IV 1000 ml Route: IV; Rate: 1 bolus; Site: right forearm; rv 20:14 Drug: Cefepime IVPB 2 grams Route: IVPB; Rate: 200 ml/hr; Infused Over: 30 mins; Site: rv right forearm; Disposition Summary: 03/23/23 22:52 Discharge Ordered Location: Home sp3 Condition: Stable sp3 Diagnosis - Urinary tract infection, SARS-CoV-2 positive sp3 Followup: sp3 - With: Private Physician - When: Upon discharge from the Emergency Department - Reason: Continuance of care Discharge Instructions: - Urinary Tract Infection, Adult sp3 - Discharge Summary Sheet mc5 Forms: - Medication Reconciliation Form sp3 - Thank You Letter sp3 - Antibiotic Education sp3 - Prescription Opioid Use sp3 - Patient Portal Instructions sp3 - SBAR form mc5 Prescriptions: - Bactrim DS 800-160 mg Oral Tablet - take 1 tablet by ORAL route every 12 hours for 7 days; 14 tablet; Refills: 0, sp3 Product Selection Permitted Signatures: Dispatcher [employer] Rajinder Ghosh RN RN rv Celsa Carmona MD MD sp3 Maria Luisa Cobian RN RN kd3
--- NOTE | 2023-03-23 22:53 | ER ---
Nurse's Notes [facility] Name: Juana Navarro Age: 62 yrs Sex: Female : 1960 Arrival Date: 03/23/2023 Time: 19:37 Bed 7 Private MD: Diagnosis: Urinary tract infection, SARS-CoV-2 positive Presentation: 03/23 19:39 Chief complaint: EMS states: Pt is from home. Family members called because of fever kd3 and worsening sacral wound. Family was unable to transport to the hospital. Family gave Tylenol 30 minutes prior to arrival. Temp was 101 for EMS at the scene. Coronavirus screen: unknown. Ebola Screen: No symptoms or risks identified at this time. Initial Sepsis Screen: Does the patient meet any 2 criteria? HR > 90 bpm. Does the patient have a suspected source of infection? Yes: Skin breakdown/wound. Risk Assessment: Do you want to hurt yourself or someone else? Patient reports no desire to harm self or others. Onset of symptoms was March 23, 2023. 19:39 Method Of Arrival: EMS: [facility] kd3 19:39 Acuity: DAVID 3 kd3 Triage Assessment: 19:43 General: Appears uncomfortable, Behavior is calm, cooperative. Pain: Unable to use pain kd3 scale. FLACC scale score is 0 out of 10. Historical: - PMHx: 19:43 bed bound; G Tube; nonverbal; NPO, aspiration; Hypertension; Diabetes - NIDDM; CVA; kd3 - PSHx: 19:43 Frandy BKA; G tube placement; kd3 - Immunization history:: Adult Immunizations up to date. - Social history:: Smoking status: unknown. Screenin:14 [facility] ED Fall Risk Assessment (Adult) History of falling in the last 3 months, rv including since admission No falls in past 3 months (0 pts) Confusion or Disorientation No (0 pts) Intoxicated or Sedated No (0 pts) Impaired Gait No (0 pts) Mobility Assist Device Used No (0 pt) Altered Elimination No (0 pt) Score/Fall Risk Level 0 - 2 = Low Risk Oriented to surroundings, Maintained a safe environment, Educated pt \T\ family on fall prevention, incl call for assistance when getting out of bed, Assessed \T\ reinforced patient's understanding of fall precautions, Provided non-skid footwear, Hourly rounding (assess needs \T\ fall precautionary measures) done, Used ambulatory aids as needed (educated on \T\ assisted with), Used gait belt as appropriate. Abuse screen: Denies threats or abuse. Denies injuries from another. Nutritional screening: No deficits noted. Tuberculosis screening: No symptoms or risk factors identified. Assessment: 21:00 Reassessment: No changes from previously documented assessment. Patient and/or family vc1 updated on plan of care and expected duration. Pain level reassessed. 22:00 : Urine is cloudy, cloudy with purulent drainage noted. vc1 22:00 Reassessment: No changes from previously documented assessment. Patient and/or family vc1 updated on plan of care and expected duration. Pain level reassessed. 22:45 Reassessment: No changes from previously documented assessment. Patient and/or family vc1 updated on plan of care and expected duration. Pain level reassessed. Vital Signs: 19:39 BP 135 / 85; Pulse 104; Resp 18; Temp 99.4(O); Pulse Ox 95% on R/A; kd3 20:45 BP 135 / 61; Pulse 86; Resp 25; Pulse Ox 96% ; vc1 22:06 BP 113 / 49; Pulse 84; Resp 30; Pulse Ox 96% on R/A; vc1 22:30 BP 100 / 54; Pulse 76; Resp 27; Pulse Ox 97% ; vc1 ED Course: 19:39 Patient arrived in ED. kd3 19:41 Celsa Carmona MD is Attending Physician. sp3 19:43 Triage completed. kd3 19:43 Arm band placed on right wrist. kd3 19:45 Rajinder Mcginnis, POLLY is Primary Nurse. rv 19:54 Inserted saline lock: 20 gauge in right forearm, using aseptic technique. Blood rv collected. 19:54 No provider procedures requiring assistance completed. rv 20:05 Inserted saline lock: 20 gauge in left antecubital area, using aseptic technique. Blood oe collected. 20:15 Patient has correct armband on for positive identification. Bed in low position. Call rv light in reach. Side rails up X 1. Provided Education on: wound care. 21:05 Chest Single View XRAY In Process Unspecified. EDMS 21:51 Straight cath inserted, using sterile technique, 16 Fr. Specimen obtained. vc1 23:08 IV discontinued, intact, bleeding controlled, No redness/swelling at site. Pressure vc1 dressing applied. Administered Medications: 20:14 Drug: NS 0.9% IV 1000 ml Route: IV; Rate: 1 bolus; Site: right forearm; rv 20:14 Drug: Cefepime IVPB 2 grams Route: IVPB; Rate: 200 ml/hr; Infused Over: 30 mins; Site: rv right forearm; Medication: 20:15 VIS not applicable for this client. rv Outcome: 22:52 Discharge ordered by . sp3 23:08 Discharged to home via wheelchair, with family. vc1 23:08 Condition: good 23:08 Discharge instructions given to family, charge hand, Instructed on discharge vc1 instructions, follow up and referral plans. medication usage, Demonstrated understanding of instructions, follow-up care, medications, Prescriptions given X 1. 23:08 Patient left the ED. vc1 Signatures: Dispatcher [employer] EDMS Kris Pate Ronaldo, RN RN rv Celsa Carmona MD MD sp3 Maria Luisa Cobian RN RN kd3 Sallie Jewell RN RN vc1 Corrections: (The following items were deleted from the chart) 22:45 22:30 BP 100 / 54; Pulse 76bpm; Resp 11bpm; Pulse Ox 97%; vc1 vc1
[2023-03-23 23:46] VITALS: TEMP 99.4
[2023-03-23 23:51] VITALS: BP 100/54; O2SAT 97
--- NOTE | 2023-03-24 11:43 | EKG ---
Test Date: 2023-03-23 Test Time: 19:39:12 Bus Escort: VEENA MEASUREMENT RESULTS: Intervals: Rate: 104 CA: 142 QRSD: 84 QT: 344 QTc: 452 [place]: P: 67 CA: 142 QRS: -3 T: 75 INTERPRETIVE STATEMENTS: Normal Sinus rhythm Left axis deviation Electronically Signed On 03-24-23 11:42:49 CDT by Fan Kramer
== END 2023-03-23 23:08 | disposition home or self-care (01) ==
LOC: ER 19:37
DX: N39.0 Urinary tract infection, site not specified (principal); U07.1 COVID-19; I10 Essential (primary) hypertension; F03.90 Unspecified dementia, unspecified severity, without behavioral disturbance, psychotic disturbance, mood disturbance, and anxiety; Z89.512 Acquired absence of left leg below knee; Z89.511 Acquired absence of right leg below knee
CPT/HCPCS: 93005; 87040; 87088; 85025; 81001; 87086; 36415; 85610; 83605; 80053; 87635; 87804 ×2; 71045; 51702; 96374; 99284; J0692; J7030; 87077; 87186

== ENCOUNTER 2023-06-24 12:40 | Inpatient (IN) | payer OTHER ==
--- OUTSIDE RECORDS SUMMARY | 2023-06-24 12:46 | XMS REPORT | Continuity of Care Document ---
:1960 Author Organization [facility] t Address [address] [address] [place] [address] Care Team Providers Name Role Phone PCP, PATIENT DOES NOT HAVE A Primary Care Physician Unavaila FIDE Hitchcock Attending Clinician Unavailable RANDY RONQUILLO Attending Clinician Unavailable ANNIA JOSEPH Attending Clinician Unavailable Nelson MATIAS, Janeth Mejia Attending Clinician PERFECTO HESS Attending Clinician Unavailable Alina Dinero MD Attending Clinician Suzanne Smith DO Attending Clinician Doctor Unassigned, Harvest Attending Clinician Unavailable Fide Hernandez DDS Attending Clinician Skyler Veloz MD Attending Clinician Jeremiah Schulte MD Attending Clinician MICHELL BALL Attending Clinician Unavailable Han Elam MD Attending Clinician HAN ELAM Attending Clinician Unavailable HAN ELAM Attending Clinician Unavailable Jessica Nieto Attending Clinician FIDE HERNANDEZ Admitting Clinician Unavailable RANDY RONQUILLO Admitting Clinician Unavailable SUZANNE SMITH Admitting Clinician Unavailable Suzanne Smith DO Admitting Clinician Fide Hernandez DDS Admitting Clinician Payers Payer Name Policy Type Policy Number Effective Date Expiration Date Han awad [facility] [id number] 2016 MEDICAID 00:00:00 Problems Condition Condition Condition [...] [place] c peptide c peptide 00 [facility] (BNP) (BNP) Branch level level HERNANDEZ HERNANDEZ Disease Active Univers (dyspnea (dyspnea 5-04 ity of on on 00:00: [place] exertion) exertion) 00 [facility] Branch Pneumonia Pneumonia Disease Active Uni vers due to due to 5-04 ity of COVID-19 COVID-19 00:00: [place] virus [...] on on Hypoxia Hypoxia Disease Active Univers 5 ity of 00:00: Medical Branch Dysphagia Dysphagia Disease Active Uni vers due to old due to old 01-08 it y of stroke stroke 00:00: Medical Branch Facial Facial Disease Active Univers swelling swelling 03-03 ity of 00:00: Medical Branch Essential Essential Disease Active Overview: Univers hypertensi hypertensi 2-28 Formattin ity of on on 00:00: g of this note Medical might be Branch different from the original. ICD10 Diagnosis Term Building Code Inspector Utility Urinary Urinary Disease Active Univers tract tract 05-15 ity of infection, infection, 00:00: [place] site not site not 00 Medica l specified specified Bran ch Cerebral Cerebral Disease Active Overview: Un nicole thrombosis thrombosis 05-15 Formattin ity of 00:00: g of this note Medical might be Branch different from the original. 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 foot with foot with [facility] unspecifie unspecifie Ce nter d severity d severity Osteomyeli Osteomyeli Diagnosis Active Common tis, tis, Spirit unspecifie unspecifie - [facility]I d d [facility] Type 2 Type 2 Problem Active Common diabetes diabetes Spirit mellitus mellitus - [facility] with foot with foot St ulcer ulcer [facility] Other Other Problem Active Common specified specified Spir it diabetes diabetes - CHI mellitus mellitus St with other with other Marissa kes specified specified Medi [facility] complicati complicati Ce nter on on Non-pressu Non-pressu Problem Active C ommon re chronic re chronic Sp elizabeth ulcer of ulcer of - CHI other part other part St of right of right timmy foot foot Medical limited to limited to Ce nter breakdown breakdown of skin of skin CVA, old, CVA, old, Problem Active Com mon aphasia aphasia Spirit - [facility] Diabetes Diabetes Problem Active Commo n mellitus mellitus Spirit due to due to - 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 - [facility] Allergies, Adverse Reactions, Alerts Allergy Allergy Status Severity Reaction(s) Onset Inactive Treating Comm ents Source Name Type Date Date Clinician NO KNOWN Drug Active Univers ALLERGIE Class ity of S [place] [facility] Social History Social Habit Start Date Stop Date Quantity Comments Source History of tobacco Cigarette Smoker University of use [place] [facility] History SDOH University o f Alcohol Std Drinks [place] [facility] History SDOH University o f Alcohol Binge [place] [facility] History SDOH Social Unive rsity of [facility] Med ical Together Branch History SDOH Social Unive rsity of [facility] Medical Branch History SDOH Social Unive rsity of [facility] Medical Membership Branch History SDOH Social Unive rsity of [facility] Medical Meetings Branch History SDOH 2023-01-09 2023-01-09 [...] University o f Physical Activity 00:00:00 00:00:00 [place] M edical DPW Branch History SDOH 2023-01-09 2023-01-09 1 University o f Physical Activity 00:00:00 00:00:00 [place] M edical MPS Branch History SDOH 2023-01-09 2023-01-09 5 University o f Financial 00:00:00 00:00:00 [place] [facility] History SDOH Food 2023-01-09 2023-01-09 1 Univers ity of Worry 00:00:00 00:00:00 [place] [facility] History SDOH Food 2023-01-09 2023-01-09 1 Univers ity of Scarcity 00:00:00 00:00:00 [place] [facility] History SDOH 2023-01-09 2023-01-09 2 University o f Transport Med 00:00:00 00:00:00 [place] Medic al Branch History SDOH 2023-01-09 2023-01-09 2 University o f Transport Non-Med 00:00:00 00:00:00 [place] M edical Branch History SDOH 2023-01-09 2023-01-09 2 University o f Housing Unable to 00:00:00 00:00:00 [place] M edical Pay Branch History SDOH 2023-01-09 2023-01-09 1 University o f Housing Places 00:00:00 00:00:00 [place] Medi shil[place] Lived Branch History SDOH 2023-01-09 2023-01-09 2 University o f Housing Homeless 00:00:00 00:00:00 [place] Me dical Last Year Branch Exposure to 2022-12-29 2023-01-08 Yes University of SARS-CoV-2 (event) 00:00:00 02:49:00 [facility] Alcohol intake 2023-01-08 2023-01-08 Lifetime University of 00:00:00 00:00:00 non-drinker [facility] (finding) Branch Cigarettes smoked 2021-03-03 2021-03-03 Univers ity of current (pack per 00:00:00 00:00:00 [facility] ) - Reported Branch Cigarette 2021-03-03 2021-03-03 University of pack-years 00:00:00 00:00:00 [facility] Tobacco use and 2021-03-03 2021-03-03 Smokeless Universit y of exposure 00:00:00 00:00:00 tobacco non-user [facility] Sex Ass[birth year] At [birth year] Universit y of 00:00:00 00:00:00 [facility] Smoking Status Start Date Stop Date Source Ex-smoker 2021-03-03 00:00:00 2021-03-03 00:00:00 Universi ty [facility] Unknown if ever smoked [facility] Medications Ordered Filled Start Stop Current Ordering Indication Dosage Frequency Signature Comments Components Source Medication Medication Date Date Medication? Clinician (SIG) Name Name metoprolol 2022- No [id number] 12.5mg Take 0.5 Univers succinate 01-14 tablets by ity of XL 25 mg 24 00:00: 04:59 [place] hr tablet 00 :00 the [facility] for 30 days. metoprolol 2022- No [id number] 12.5mg Take 0.5 Univers succinate 01-14 tablets by ity of XL 25 mg 24 00:00: 04:59 mouth in [place] hr tablet 00 :00 the [facility] for 30 days. aspirin 81 Yes [...] 20mg Take 20 mg Univers 20 mg 5-08 05-08 by mouth ity of tablet 13:29: 00:00 daily. [place] 53 :00 [facility] lisinopriL 2022-0 3- No [id number] 10mg Take 1 Univers 10 mg -04 13-08 tablet by ity of tablet 00:00: 04:59 mouth in [place] 00 :00 [facility] for 30 days. lisinopriL 2023-0 2023- No [id number] 10mg Take 1 Univers 10 mg 5- 06-08 tablet by ity of tablet 00:00: 04:59 mouth in [place] 00 :00 [facility] for 30 days. metFORMIN 2022-0 Yes 500mg 500 mg, Univ ers (GLUCOPHAGE [...] ion of Therapy: Other (see Comments) metoprolol 2022-0 Yes 12.5mg 12.5 mg, U nivers succinate 5-05 Oral, ity of XL (TOPROL 14:00: DAILY, [place] XL) tablet 00 First dose Med ical 12.5 mg on Fri Branch 01/10/23 at 0900, Until Discontinu ed, Routine azithromyci 2022- No 500mg 500 mg, U nivers n 01-09 05-05 Enteral, ity of (ZITHROMAX) 17:00: 12:53 Q24H, 2 [place] 100 mg/5 mL 00 :29 doses, Medica l suspension First dose Bra nch 500 mg on Fri01/09/23 at 1200, Last dose on Fri01/10/23 at 1200, JOSH
Re ason for Anti-Infec tive: Empiric Therapy for Suspected Infection< br>Empiric Therapy Site: Respirator y
Durat ion of therapy: 72 hours atorvastati 2022-0 Yes 10mg 10 mg, Univ ers n (LIPITOR) -04 Enteral, ity of tablet 10 02:00: QHS, First [place] mg 00 dose on Medical Fri01/08/23 Branch at 2100, Until Discontinu ed, Routine enoxaparin 0 Yes 40mg 40 mg, Unive rs (LOVENOX) 01-08 Subcutaneo ity of injection 22:00: us, DAILY, [place] 40 mg 00 First dose Medical on Fri01/08/23 at 1700, Until Discontinu ed, Routine FLUoxetine 0 Yes 20mg 20 mg, Unive rs (PROZAC) 01-08 Oral, ity of capsule 20 14:00: DAILY, [place] mg 00 First dose Medical on Fri01/08/23 at 0900, Until Discontinu ed, Routine aspirin 0 Yes 81mg 81 mg, Univers chewable 01-08 [...] at 0800, Until Discontinu ed, Routine Sliding Yes Subcutaneo Univ ers Scale 01-08 us, AC+HS, ity of Insulin-Reg 12:30: First [...] on Fri01/08/23 at 0445, Last dose on 01/12/23 at 0445, Administer over 30 Minutes, 100 [...] at IV 0445, Last piggyback dose on 01/12/23 at 0445, Administer over 60 Minutes, 250 mL
Reas on for Anti-Infec tive: Empiric Therapy for Suspected Infection< br>Empiric Therapy Site: Respirator y
Durat ion of therapy: 5 days dextrose Yes 250mL 250 mL, IV Un nicole 10% (D10W) 01-08 Infusion, ity of bolus 08:47: PRN - SEE [place] infusion 05 INSTRUCTIO Medic al 250 mL NS, [place] Administer over 60 Minutes, Other, If blood [...] 2022-0 Yes 1mg 1 mg, Univers (GLUCAGEN 03 Intramuscu ity of DIAGNOSTIC 08:46: lar, PRN, [place] KIT) 59 Starting Medical injection 1 on Fri Branch mg 01/08/23 at 0346, Until Discontinu ed, JOSH, Blood Glucose < or = 70 mg/dL and patient is NPO, unable to swallow or has mental changes. dexamethaso 2022-0 Yes 6mg 6 mg, Unive rs ne sod phos 03 Intravenou it y of PF 08:45: s, DAILY, [place] injection 6 00 First dose Me dical mg on Fri Branch 01/08/23 at 0345, Until Discontinu ed, 1 mL dextrometho 2022-0 Yes 5mL 5 mL, [place] [facility] 03 Oral, ity of enesin 08:34: Q6HPRN, [place] (ROBITUSSIN 12 Starting Medi shil[place] DM) 10-100 on Fri Branch mg/5 mL 01/08/23 at solution 5 0334, mL Until Discontinu ed, Routine, Cough NaCl 0.9% 2022-0 202- No 500mL at 999 Univ ers (NS) bolus 01-08 05-03 mL/hr, 500 it y of infusion 06:45: 06:32 mL, IV [place] 500 mL 00 :00 Infusion, Medical ONCE, 1 Branch dose, On Fri01/08/23 at 0145, JOSH ondansetron 2022-0 Yes 4mg 4 mg, Slow Univers (ZOFRAN 03 IV Push, ity of (PF)) 06:17: Q6HPRN, [place] injection 4 48 Starting Medi [place]il[place] mg on Fri Branch 01/08/23 at 0117, Until Discontinu ed, Routine, Nausea and Vomiting (N/V) acetaminoph 2023-0 Yes 650mg 650 mg, Un nicole en 5-03 Oral, ity of (TYLENOL) 06:17: Q6HPRN, [place] tablet 650 28 Starting Medic al mg on Fri01/08/23 at 0117, Until Discontinu ed, Routine, Pain (scale 1-3) lisinopriL 0 Yes 20mg Take 20 mg U nivers 20 mg 6-29 by mouth ity of tablet 20:52: daily. [address] aspirin 81 0 Yes 81mg Take 81 mg U nivers mg chewable 6-29 through ity o f tablet 20:52: enteral [place] 35 tube Medical daily. [place] lisinopriL 0 Yes 20mg Take 20 mg U nivers 20 mg 6-29 by mouth ity of tablet 20:52: daily. [address] aspirin 81 Yes 81mg Take 81 mg U nivers mg chewable 6-29 through ity o f tablet 20:52: enteral [place] 35 tube Medical daily. [place] lisinopriL Yes 20mg Take 20 mg U nivers 20 mg 6-29 by mouth ity of tablet 20:52: daily. [address] aspirin 81 0 Yes 81mg Take 81 mg U nivers mg chewable 6-29 through ity o f tablet 20:52: enteral [place] 35 tube Medical daily. [place] lisinopriL Yes 20mg Take 20 mg U nivers 20 mg 6-29 by mouth ity of tablet 20:52: daily. [address] aspirin 81 0 Yes 81mg Take 81 mg U nivers mg chewable 6-29 through ity o f tablet 20:52: enteral [place] 35 tube Medical daily. [place] ceFEPIme 0 Yes 2000mg 2,000 mg, Un nicole (MAXIPIME) 6-29 IV ity of 2,000 mg in 16:15: Piggyback, [place] NaCl 0.9% 00 Q12H ABX, Medic al [...] ity of 2,000 mg in 16:15: Piggyback, [place] NaCl 0.9% 00 Q12H ABX, Medic al (NS) 100 mL First dose Br anch piggyback (after last modificati on) on Fri03/06/21 at 1115, Until Discontinu ed, 100 mL
Reas on for Anti-Infec tive: Documented Infection< br>Documen viv Infection Site: HEENT
D uration of Therapy: 7 days lisinopriL 0 Yes 20mg Take 20 mg U nivers 20 mg 03-06 by mouth ity of tablet 12:35: daily. [place] [address] Medical Branch aspirin 81 2020-0 Yes 81mg Take 81 mg U nivers mg chewable 03-06 through ity o f tablet 12:35: enteral [place] [address] tube Medical daily. Branch chlorhexidi 0 Yes [id number] 15mL Swish and Univers ne 0.12 % 6-29 spit out ity of mouthwash 00:00: 15 mL 2 [place] [address] (two) Medical times Branch daily. chlorhexidi 2020-0 Yes [id number] 15mL Swish and Univers ne 0.12 % 6-29 spit out ity of mouthwash 00:00: 15 mL 2 [place] 00 (two) Medical times Branch daily. chlorhexidi 2020-0 Yes [id number] 15mL Swish and Univers ne 0.12 % 6-29 spit out ity of mouthwash 00:00: 15 mL 2 [place] 00 (two) Medical times Branch daily. chlorhexidi 2020-0 Yes [id number] 15mL Swish and Univers ne 0.12 % 6-29 spit out ity of mouthwash 00:00: 15 mL 2 [place] (two) Medical times Branch daily. chlorhexidi 2020-0 Yes [id number] 15mL Swish and Univers ne 0.12 % 6-29 spit out ity of mouthwash 00:00: 15 mL 2 [place] [address] (two) Medical times Branch daily. chlorhexidi 2020-0 Yes [id number] 15mL Swish and Univers ne 0.12 % 03-06 spit out ity of mouthwash 00:00: 15 mL 2 [place] 00 (two) Medical times Branch daily. amoxicillin No [id number] 1{tbl} Take 1 Univers -clavulanat 03-06- tablet by it y of e 00:00: 04:59 mouth 2 [place] (AUGMENTIN) 00 :00 (two) Medical 875-125 mg times Branch per tablet daily for 7 days. ibuprofen 2020- No [id number] 600mg Take 30 mL Univers 100 mg/5 mL 03-06 by mouth ity of oral 00:00: 04:59 every 6 [place] suspension 00 :00 (six) Medical hours as Branch needed for Pain (scale 1-3) or Alternate with Berry for pain scale 4-6 for up to 7 days. HYDROcodone 2020- No [id number] 7.5mg Take 15 mL Univers -acetaminop 03-06 by mouth 4 i ty of hen 7.5-325 00:00: 04:59 (four) Eduardo as mg/15 mL 00 :00 times Medical solution daily as Branch needed for Pain (scale 4-6) for up to 7 days. Indication s: acute pain amoxicillin 2020- No [id number] 1{tbl} Take 1 Univers -clavulanat 03-06 tablet by it y of e 00:00: 04:59 mouth 2 [place] (AUGMENTIN) 00 :00 (two) Medical 875-125 mg times Branch per tablet daily for 7 days. ibuprofen 2020- No [id number] 600mg Take 30 mL Univers 100 mg/5 mL 03-06 by mouth ity of oral 00:00: 04:59 every 6 [place] suspension 00 :00 (six) Medical hours as Branch needed for Pain (scale 1-3) or Alternate with Berry for pain scale 4-6 for up to 7 days. HYDROcodone 2020- No [id number] 7.5mg Take 15 mL Univers -acetaminop 03-06 by mouth 4 i ty of hen 7.5-325 00:00: 04:59 (four) Eduardo as mg/15 mL 00 :00 times Medical solution daily as Branch needed for Pain (scale 4-6) for up to 7 days. Indication s: acute pain amoxicillin 2020- No [id number] 1{tbl} Take 1 Univers -clavulanat 03-06 tablet by it y of e 00:00: 04:59 mouth 2 [place] (AUGMENTIN) 00 :00 (two) Medical 875-125 mg times Branch per tablet daily for 7 days. ibuprofen 2020- No [id number] 600mg Take 30 mL Univers 100 mg/5 mL 03-06 by mouth ity of oral 00:00: 04:59 every 6 [place] suspension 00 :00 (six) Medical hours as Branch needed for Pain (scale 1-3) or Alternate with Berry for pain scale 4-6 for up to [...] ity of infusion 20:45: 23:33 1,000 mL, Eduadro as 1,000 mL 00 :36 IV Medical Infusion, Branch CONTINUOUS , Starting 03/05/21 at 1545, Until Fri03/05/21 at 1833, Routine, PACU ondansetron 2020- No Slow IV Un nicole (ZOFRAN 03-05 Push, ONCE ity o f (PF)) 20:03: 20:23 INTRA [place] injection 00 :51 PROCEDURE, Medi [place]iloh Starting Branch 03/05/21 at 1503, Until Fri03/05/21 at 1523, Routine, Intra-op ketorolac 2020- No Slow IV Univ ers (TORADOL) 03-05 Push, ONCE ity of injection 20:03: 20:23 INTRA [place] 00 :51 PROCEDURE, Medical Starting Branch 03/05/21 at 1503, Until Fri03/05/21 at 1523, Routine, Intra-op lidocaine 2020- No PRN, Univers 2% - 03-05 Starting ity of epinephrine 19:56: 20:48 [facility] 1:100,000 00 :18 03/05/21 at [facility] syringe 1456, Branch Until Fri03/05/21 at 1548, Routine, Intra-op glycopyrrol 2020- No Intravenou Univers ate 03-05 s, ONCE ity of (ROBINUL) 19:53: 20:23 INTRA [place] injection 00 :51 PROCEDURE, [facility] Starting Branch [facility] 03/05/21 at 1453, Until 03/05/21 at 1523, Routine, Intra-op ePHEDrine 2020- No Slow IV Univ ers 25 mg/5 mL 03-05 Push, ONCE it y of (5 mg/mL) 19:50: 20:23 INTRA [place] syringe 00 :51 PROCEDURE, Medica l Starting Branch [facility] 03/05/21 at 1450, Until Fri03/05/21 at 1523, Routine, Intra-op lactated 2020- No IV Univers ringers IV 03-05 Infusion, ity of infusion 19:14: 20:23 CONTINUOUS [place] 00 :51 PRN, Medical Starting Branch [facility] 03/05/21 at 1414, Until Fri03/05/21 at 1523, Routine, Intra-op FENTanyl PF 2020- No Epidural, Univers (SUBLIMAZE 03-05 ONCE INTRA it y of (PF)) 19:14: 20:23 PROCEDURE, [place] injection 00 :51 Starting Medica l [facility] Branch 03/05/21 at 1414, Until Discontinu ed, Routine, Intra-op lidocaine 2020- No Slow IV Univ ers 1% 03-05 Push, ONCE ity of (XYLOCAINE) 19:14: 20:23 INTRA [place] 100 mg/10 00 :51 PROCEDURE, [facility] mL (1 %) Starting Branch injection [facility] 03/05/21 at 1414, Until Discontinu ed, Routine, Intra-op rocuronium 2020- No IV Push, Un nicole (ZEMURON) 03-05 ONCE INTRA ity of injection 19:14: 20:23 PROCEDURE, [place] 00 :51 Starting [facility] 03/05/21 at 1414, Until Discontinu ed, Routine, Intra-op etomidate 2020- No Slow IV Univ ers (AMIDATE) 03-05 Push, ONCE ity of injection 19:14: 20:23 INTRA [place] 00 :51 PROCEDURE, [facility] 03/05/21 at 1414, Until Discontinu ed, Routine, Intra-op phenylephri 2020- No 1[drp] 1 Drop, Univers ne 03-05 Both Eyes, ity of (EHSAN-SYNEPH 12:15: 14:11 ONCE, 1 [place] RINE) 2.5 % 00 :00 dose, Mon Med ical ophthalmic 03/05/21 at [facility] drops 1 0715, Drop Routine tropicamide 2020- No 1[drp] 1 Drop, Univers (MYDRIACYL) 03-05 Both Eyes, i ty of 1 % 12:15: 14:11 ONCE, 1 [place] ophthalmic 00 :00 dose, Mon Medi shiloh drops 1 03/05/21 at [place] Drop 0715, Routine proparacain 2020- No 1[drp] 1 Drop, Univers e (ALCAINE) 03-05 Both Eyes, i ty of 0.5 % 12:15: 14:11 ONCE, 1 [place] ophthalmic 00 :00 dose, Mon Medi shiloh solution 1 03/05/21 at [facility] Drop 0715, Routine morpHINE 2020- No 2mg 2 mg, Slow Un nicole injection 2 03-05 IV Push, ity of mg 01:09: [facility] [facility] [place] 18 :18 Starting [facility] 03/04/21 at 2008, Until Fri03/06/21 at 2007, Routine, Pain (scale 7-10) morpHINE 2020- No 2mg 2 mg, Slow Un nicole injection 2 03-05 IV Push, ity of mg 01:09: 01:[address] [facility], [place] 18 :18 Starting [facility] 03/04/21 at 2008, Until Fri03/06/21 at 2007, Routine, Pain (scale 7-10) HYDROcodone 2020-0 2020- No 7.5mg 7.5 mg, U nivers -acetaminop 03-05 Oral, ity of hen (HYCET) 01:08: 01:07 Q6HPRN, [place] 7.5-325 42 :42 Starting Medical mg/15 mL [place] Branch solution 03/04/21 at 7.5 mg 2007, Until Fri03/07/21 at 2006, Routine, Pain (scale 4-6) HYDROcodone 2020-0 2020- No 7.5mg 7.5 mg, U nivers -acetaminop 03-05 Oral, ity of hen (HYCET) 01:08: 01:07 Q6HPRN, [place] 7.5-325 42 :42 Starting Medical mg/15 mL [place] solution 03/04/21 at 7.5 mg 2007, Until Fri03/07/21 at 2006, Routine, Pain (scale 4-6) ibuprofen 2020-0 2020- No 600mg 600 mg, Uni vers (ADVIL 03-05 Oral, ity of CHILDREN'S) 01:08: 01:07 Q6HPRN, [place] 100 mg/5 mL 10 :10 Starting Medi shiloh oral [place] Branch suspension 03/04/21 at 600 mg 2007, Until Fri03/07/21 at 2006, Routine, Pain (scale 1-3) ibuprofen 2020-0 2020- No 600mg 600 mg, Uni vers (ADVIL 03-05 Oral, ity of CHILDREN'S) 01:08: 01:07 Q6HPRN, [place] 100 mg/5 mL 10 :10 Starting Medi [place]il[place] oral [place] suspension 03/04/21 at 600 mg 2007, Until Fri03/07/21 at 2006, Routine, Pain (scale 1-3) scopolamine Yes 1.5mg 1.5 mg, Un nicole transdermal 03-04 Topical, ity of (TRANSDERM- 17:30: Administer [place] SCOP) patch 00 over 72 Medic al 1.5 mg Hours, Branch Q72H, First dose on 03/04/21 at 1230, Until Discontinu ed, Routine scopolamine 0 Yes 1.5mg 1.5 mg, Un nicole transdermal 03-04 Topical, ity of (TRANSDERM- 17:30: Administer [place] SCOP) patch 00 over 72 Medic al 1.5 mg Hours, Branch Q72H, First dose on [place] 03/04/21 at 1230, Until Discontinu ed, Routine lisinopriL Yes 20mg 20 mg, Unive rs (PRINIVIL,Z 03-04 Enteral, ity of ESTRIL) 14:00: DAILY, [place] tablet 20 00 First dose Medi shiloh mg on [place] Branch 03/04/21 at 0900, Until Discontinu ed, Routine aspirin Yes 81mg 81 mg, Univers chewable 03-04 Enteral, ity of tablet 81 14:00: DAILY, [place] mg 00 First dose Medical on [place] Branch 03/04/21 at 0900, Until Discontinu ed, Routine lisinopriL Yes 20mg 20 mg, Unive rs (PRINIVIL,Z 03-04 Enteral, ity of ESTRIL) 14:00: DAILY, [place] tablet 20 00 First dose Medi shiloh mg on [place] Branch 03/04/21 at 0900, Until Discontinu ed, Routine aspirin 0 Yes 81mg 81 mg, Univers chewable 03-04 Enteral, ity of tablet 81 14:00: DAILY, [place] mg 00 First dose Medical on [facility] 03/04/21 at 0900, Until Discontinu ed, Routine magnesium 2020- No 4g 4 g, IV Univ ers sulfate in 03-04 Piggyback, it y of water 4 08:30: 08:53 ONCE, 1 [place] gram/50 mL 00 :00 dose, [place] Medi shiloh (8 %) IV 03/04/21 at Branc h Piggyback 4 0330, g Routine ceFEPIme 2020- No 2000mg 2,000 mg, U nivers (MAXIPIME) 03-04 IV ity of 2,000 mg in 04:15: 13:16 Piggyback, [place] NaCl 0.9% 00 :38 Q12H ABX, Medic al (NS) 100 mL First dose Br anch MINI-BAG on 03/03/21 at 2315, Until Discontinu ed, 100 mL
Reas on for Anti-Infec tive: Documented Infection< br>Documen viv Infection Site: HEENT<br&g t;Duration of Therapy: 7 days iohexoL 2020- No [id number] 50mL 50 mL, Un nicole (OMNIPAQUE 03-04 [...] Infusion, ity of (iso-os) 02:15: Q8H ABX, [place] (FLAGYL 00 First dose Medica l I.V.) RTU on [facility] Branch IV infusion 03/03/21 at 500 mg 2115, Until Discontinu ed, 100 mL
Reas on for Anti-Infec tive: Documented Infection< br>Documen viv Infection Site: HEENT
D uration of Therapy: 7 days metroNIDAZO Yes 500mg 500 mg, IV Univers LE in NaCl 03-04 Infusion, ity of (iso-os) 02:15: Q8H ABX, [place] (FLAGYL 00 First dose Medica l I.V.) RTU on Sat Branch IV infusion 03/03/21 at 500 mg 2114, Until Discontinu ed, 100 mL
Reas on for Anti-Infec tive: Documented Infection< br>Documen viv Infection Site: HEENT
D uration of Therapy: 7 days cefTRIAXone No 1000mg 1,000 mg, Univers (ROCEPHIN) 03-04 IV ity of 1,000 mg in 02:15: 03:09 [place], [place] NaCl 0.9% 00 :46 Q24H ABX, Medic al (NS) 50 mL First dose [facility] MINI-BAG on 03/03/21 at 2114, Until Discontinu [...] Testing 2100, Until Discontinu ed, Routine FLUoxetine 2020-0 Yes 20mg 20 mg, Unive rs (PROZAC) 20 03-04 Enteral, ity of mg/5 mL (4 02:00: QHS, First [place] mg/mL) 00 dose on Medical solution 20 Sat Branch mg 03/03/21 at 2100, Until Discontinu ed, Routine atorvastati 0 Yes 10mg 10 mg, Univ ers n (LIPITOR) 03-04 Enteral, ity of tablet 10 02:00: QHS, [place] mg 00 dose on Medical Sat Branch 03/03/21 at 2100, Until Discontinu ed, Routine glucagon 2020-0 Yes 1mg 1 mg, Univers (GLUCAGEN 03-04 [...] swallow or has mental status changes. glucagon 2020-0 Yes 1mg 1 mg, Univers (GLUCAGEN -27 Intramuscu ity of DIAGNOSTIC 01:49: lar, PRN, [place] KIT) 36 Starting Medical injection 1 Sat Branch mg 03/03/21 at 2048, Until Discontinu ed, JOSH, Blood Glucose < or = 70 mg/dL and patient is unable to swallow or has mental changes. dextrose 50 2020-0 Yes 25mL 25 mL, Univ ers % in water 03-04 Slow IV ity of (D50W) 01:49: Push, PRN, [place] injection 36 Starting Medica l 25 mL Sat Branch 03/03/21 at 2048, Until Discontinu ed, JOSH, Blood Glucose < or = 70 mg/dL and patient is unable to swallow or has mental status changes. PROZAC 20 2020- No None Univers MG ORAL CAP 03-04 Entered ity of 01:41: 00:00 02 : [facility] MIRAPEX 2020- No None Univers 0.25 MG 03-04 Entered ity of ORAL TAB 01:41: 00:00 02 : [facility] PROZAC 20 2020- No None Univers MG ORAL CAP 03-04 Entered ity of 01:41: 00:00 02 : [facility] MIRAPEX 2020- No None Univers 0.25 MG 03-04 Entered ity of ORAL TAB 01:41: 00:00 [place] 02 :00 [facility] lactated 0 Yes 1000mL at 50 Univer s ringers IV 6-27 mL/hr, ity of infusion 01:00: 1,000 [place] 1,000 mL 00 IV Medical Infusion, Branch CONTINUOUS , Starting 03/03/21 at 1999, Until Discontinu ed, Routine lactated 0 Yes 1000mL at 50 Univer s ringers IV 6-27 mL/hr, ity of infusion 01:00: 1,000 mL, [place] 1,000 mL 00 IV Medical Infusion, Branch CONTINUOUS , Starting 03/03/21 at 1999, Until Discontinu ed, Routine lisinopriL Yes 20mg Take 20 mg U nivers 20 mg 2-09 by mouth ity of tablet 16:24: daily. [address] lisinopriL Yes 20mg Take 20 mg U nivers 20 mg 2-09 by mouth ity of tablet 16:24: daily. [address] atorvastati Yes Univer s n 10 mg -29 ity of tablet 00:00: [facility] hydrALAZINE 0 Yes Univer s 25 mg -29 ity of tablet 00:00: [facility] pantoprazol Yes Univer s e 40 mg EC - ity of tablet 00:00: [facility] atorvastati Yes Univer s n 10 mg -29 ity of tablet 00:00: Medical Branch hydrALAZINE 0 Yes 25mg Take 25 mg Univers 25 mg 1-29 through ity of tablet 00:00: enteral [place] 00 tube 2 Medical (two) Branch times daily. pantoprazol 2020-0 Yes Univer s e 40 mg EC 1-29 ity of tablet 00:00: [place] [facility] atorvastati Yes Univer s n 10 mg 1-29 ity of tablet 00:00: [place] [facility] hydrALAZINE 0 Yes 25mg Take 25 mg Univers 25 mg 1-29 through ity of tablet 00:00: enteral [place] 00 tube 2 Medical (two) Branch times daily. pantoprazol 0 Yes Univer s e 40 mg EC 1-29 ity of tablet 00:00: [place] [facility] atorvastati Yes Univer s n 10 mg 1-29 ity of tablet 00:00: [place] [facility] hydrALAZINE 0 Yes 25mg Take 25 mg Univers 25 mg 1-29 through ity of tablet 00:00: enteral [place] 00 tube 2 Medical (two) Branch times daily. pantoprazol 0 Yes Univer s e 40 mg EC 1-29 ity of tablet 00:00: [place] [facility] atorvastati 0 Yes Univer s n 10 mg 1-29 ity of tablet 00:00: [place] [facility] hydrALAZINE 0 Yes 25mg Take 25 mg Univers 25 mg 1-29 through ity of tablet 00:00: enteral [place] 00 tube 2 Medical (two) Branch times daily. pantoprazol 2020-0 Yes Univer s e 40 mg EC 1-29 ity of tablet 00:00: [place] [facility] atorvastati 0 Yes Univer s n 10 mg 1-29 ity of tablet 00:00: [place] [facility] hydrALAZINE 2020-0 Yes 25mg Take 25 mg Univers 25 mg 1-29 through ity of tablet 00:00: enteral [place] 00 tube 2 Medical (two) Branch times daily. pantoprazol 2020-0 Yes Univer s e 40 mg EC 1-29 ity of tablet 00:00: [place] [facility] atorvastati 2020-0 Yes Univer s n 10 mg 1-29 ity of tablet 00:00: [place] [facility] hydrALAZINE Yes 25mg Take 25 mg Univers 25 mg -29 through ity of tablet 00:00: enteral 00 tube 2 Medical (two) Branch times daily. pantoprazol Yes Univer s e 40 mg EC - ity of tablet 00:00: [place] [facility] atorvastati Yes Univer s n 10 mg - ity of tablet 00:00: [place] [facility] hydrALAZINE Yes 25mg Take 25 mg Univers 25 mg -29 through ity of tablet 00:00: enteral [place] 00 tube 2 Medical (two) Branch times daily. pantoprazol Yes Univer s e 40 mg EC 10-06 ity of tablet 00:00: [place] [facility] atorvastati Yes Univer s n 10 mg 10-06 ity of tablet 00:00: [place] [facility] hydrALAZINE Yes Univer s 25 mg 10-06 ity of tablet 00:00: [place] [address] Medical Branch pantoprazol Yes Univer s e 40 mg EC - ity of tablet 00:00: [place] [address] Medical Branch iohexol 2019-0 2020- No 120mL 120 mL, Unive rs (OMNIPAQUE 04-04 Intravenou it y of 350 18:15: 17:45 s, ONCE, 1 [place] BULK-150 00 :00 dose, Tue Medica l mL) 04/04/20 at Branch injection 1315, 120 mL Routine Acetaminoph Acetaminoph 2018- 2019- No Chris 5ml Common en en 02-25 Mk [facility] 00:00: 00:00 - [facility] 00 :00 [facility] PLAVIX 75 0 Yes 1 by mouth Un nicole MG ORAL TAB 6-12 every day ity of 00:00: [place] [facility] PLAVIX 75 2006-0 Yes 1 by mouth Un nicole MG ORAL TAB 6-12 every day ity of 00:00: [place] [address] Medical Branch PLAVIX 75 2006-0 Yes 1 by mouth Un nicole MG ORAL TAB 6-12 every day ity of 00:00: [place] [address] Medical Branch PLAVIX 75 2007-0 Yes 1 by mouth Un nicole MG ORAL TAB 6-12 every day ity of 00:00: Medical Branch PLAVIX 75 2020- No 1 by mouth U nivers MG ORAL TAB 6-12 03-03 every day it y of 00:00: 00:00 [place] 00 :00 Medical Branch PLAVIX 75 2020- No 1 by mouth U nivers MG ORAL TAB 6-12 - every day it y of 00:00: 00:00 [place] 00 :00 [facility] Branch PROZAC 20 Yes None Univers MG ORAL CAP 6-10 Entered ity o f 19:53: [address] MIRAPEX Yes None Univers 0.25 MG 6-10 Entered ity of ORAL TAB 19:53: [address] PROZAC 20 Yes None Univers MG ORAL CAP 6-10 Entered ity o f 19:53: [address] MIRAPEX Yes None Univers 0.25 MG 6-10 Entered ity of ORAL TAB 19:53: [address] PROZA 20 Yes None Univers MG ORAL CAP 6-10 Entered ity o f 19:53: [address] [facility] Yes None Univers 0.25 MG 6-10 Entered ity of ORAL TAB 19:53: [address] PROZA 20 Yes None Univers MG ORAL CAP 6-10 Entered ity o f 19:53: [address] [facility] Yes None Univers 0.25 MG 6-10 Entered ity of ORAL TAB 19:53: [address] PRAMIPEXOLE Yes 1 Tab Oral Univers 0.25 MG 3-02 once daily ity of ORAL TAB 00:00: Medical Branch ASPIRIN 325 Yes 1 Tab Oral Univers MG ORAL 3-02 DAILY ity of TBEC 00:00: [place] [address] Medical Branch CLOPIDOGREL Yes 1 Tab Oral Univers 75 MG ORAL 3-02 DAILY ity of TAB 00:00: [place] [address] Medical Branch METFORMIN 2006- Yes 1 Tab Oral Un nicole 500 MG ORAL 3-02 BID MEALS ity of TAB 00:00: [place] [address] Medical Branch ENALAPRIL Yes 1 Tab Oral Un nicole [...] of TAB 00:00: [place] [facility] FLUOXETINE 2006-0 Yes 1 Cap [...] ity of TBEC 00:00: Medical Branch METFORMIN 2007-0 Yes 1 [...] ity of TAB 00:00: [place] [facility] PYRIDOXINE 2007-0 Yes 1 Tab [...] ity of CAP 00:00: [place] [facility] PRAMIPEXOLE 2007-0 Yes 1 Tab Oral Univers 0.25 MG 3-02 once daily ity of ORAL TAB 00:00: [place] [facility] ASPIRIN 325 2007-0 Yes 1 Tab Oral Univers MG ORAL 3-02 DAILY ity of TBEC 00:00: [place] [facility] CLOPIDOGREL 2007-0 Yes 1 Tab [...] 1 Tab Oral Univers 0.25 MG 3-02 -26 once daily ity o f ORAL TAB 00:00: 00:00 [place] 00 :00 Medical Branch ASPIRIN 325 2007-0 2021- No 1 Tab Oral Univers MG ORAL 3-02 06-26 DAILY ity of TBEC 00:00: 00:00 [place] 00 :00 Medical Branch CLOPIDOGREL 2007-0 2021- No 1 Tab Oral Univers 75 MG ORAL 3-02 06-26 DAILY ity of TAB 00:00: 00:00 [place] 00 :00 Medical Branch ENALAPRIL 2007-0 2021- No 1 Tab Oral U nivers MALEATE 10 3-02 -26 DAILY ity of MG ORAL TAB 00:00: 00:00 [place] 00 :00 Medical Branch FOLIC ACID 2007-0 2021- No 1 Tab Oral Univers 1 MG ORAL 3-02 -26 DAILY ity of TAB 00:00: 00:00 [place] 00 :00 Medical Branch PYRIDOXINE 2007-0 2021- No 1 Tab Oral Univers 50 MG ORAL 11-07 DAILY ity of TAB 00:00: 00:00 [place] 00 :00 Medical Branch PRAMIPEXOLE 2020- No 1 Tab Oral Univers 0.25 MG 11-07 once daily ity o f ORAL TAB 00:00: 00:00 [place] 00 :00 Medical Branch ASPIRIN 325 1- No 1 Tab Oral Univers MG ORAL [...] 00:00 [place] 00 :00 Medical Branch PYRIDOXINE 1- No 1 Tab Oral Univers 50 MG ORAL 11-07 DAILY ity of TAB 00:00: 00:00 [place] 00 :00 Medical Branch Lisinopril Lisinopril Yes Chris 1 tablet Common Km [facility] Lisinopril Lisinopril Yes Chris 1 tablet Common Km [facility] Pantoprazol Pantoprazol Yes Chris 1 tablet Common e Sodium e Sodium Km [facility] Metformin Metformin Yes Chris 1 tablet Common HCl HCl Km with a Spirit meal [facility] Tramadol Tramadol Yes Chris as Commo n HCl HCl Km directed [facility] Plavix Plavix Yes Chris 1 tablet Commo n Km [facility] Atorvastati Atorvastati Yes Chris TAKE 1 Common n Calcium n Calcium Km TABLET BY Spirit MOUTH AT - [facility] BEDTIME [facility] HydrALAZINE HydrALAZINE Yes Chris 1 tablet Common HCl HCl Km with food Spirit - [facility] Vital Signs Vital Name Observation Time Observation Value Comments Source Systolic blood 2023-01-13 12:43:00 133 mm[Hg] Univer sity of pressure [place] [facility] Diastolic blood 2023-01-13 12:43:00 69 mm[Hg] Unive rsity of pressure [place] [facility] Heart rate 2023-01-13 12:43:00 80 /min Universi ty of [place] [facility] Body temperature 2023-01-13 12:43:00 36.06 Lorna Univ ersity of [place] [facility] Respiratory rate 2023-01-13 12:43:00 17 /min Univ ersity of [place] [facility] Oxygen saturation in 2023-01-13 12:43:00 95 /min University of Arterial blood by [place] [employer] Pulse oximetry Branch Body weight 2023-01-13 08:52:00 62.234 kg Universi ty of [place] [facility] BMI 2023-01-13 08:52:00 25.92 kg/m2 Universi ty of [place] [facility] Body height 2023-01-08 07:51:00 154.9 cm Universi ty of [place] [facility] Systolic blood 2021-03-06 17:19:00 136 mm[Hg] Univer sity of pressure [place] [facility] Diastolic blood 2021-03-06 17:19:00 68 mm[Hg] Unive rsity of pressure [place] [facility] Heart rate 2021-03-06 17:19:00 69 /min Universi ty of [place] [facility] Body temperature 2021-03-06 17:19:00 36.83 Lorna Univ ersity of [place] [facility] Respiratory rate 2021-03-06 17:19:00 20 /min Univ ersity of [place] [facility] Oxygen saturation in 2021-03-06 17:19:00 93 /min University of Arterial blood by [place] [employer] Pulse oximetry Branch Body height 2021-03-03 21:00:00 152.4 cm Universi ty of [place] [facility] Body weight 2021-03-03 21:00:00 46.494 kg Universi ty [facility] [place] [facility] BMI 2021-03-03 21:00:00 20.02 kg/m2 [facility]i ty [facility] [place] [facility] Systolic blood 2021-03-06 17:19:00 136 mm[Hg] Univer sity of pressure [place] [facility] Diastolic blood 2021-03-06 17:19:00 68 mm[Hg] Unive rsity of pressure [place] [facility] Heart rate 2021-03-06 17:19:00 69 /min Universi ty [facility] [place] [facility] Body temperature 2021-03-06 17:19:00 36.83 Lorna Univ ersity of [place] [facility] Respiratory rate 2021-03-06 17:19:00 20 /min Univ ersity of [place] [facility] Oxygen saturation in 2021-03-06 17:19:00 93 /min University of Arterial blood by [facility] [employer] Pulse oximetry Branch Body height 2021-03-03 21:00:00 152.4 cm Universi ty [facility] [place] [facility] Body weight 2021-03-03 21:00:00 46.494 kg Universi ty [facility] [place] [facility] BMI 2021-03-03 21:00:00 20.02 kg/m2 [facility]i ty [facility] [place] [facility] Systolic blood 2021-03-05 20:45:00 163 mm[Hg] Univer sity of pressure [place] [facility] Diastolic blood 2021-03-05 20:45:00 91 mm[Hg] Unive rsity of pressure [place] [facility] Heart rate 2021-03-05 20:45:00 100 /min Universi ty [facility] [place] [facility] Respiratory rate 2021-03-05 20:45:00 22 /min Univ ersity of [place] [facility] Oxygen saturation in 2021-03-05 20:45:00 93 /min University of Arterial blood by [facility] Pulse oximetry Branch Body temperature 2021-03-05 20:16:00 36 Lorna Univ ersity of [place] [facility] Body height 2021-03-03 21:00:00 152.4 cm [facility] [place] [facility] Body weight 2021-03-03 21:00:00 46.494 kg [facility] [place] [facility] BMI 2021-03-03 21:00:00 20.02 kg/m2 [facility] [place] [facility] Systolic blood 2021-03-05 20:45:00 163 mm[Hg] Univer sity of pressure [place] [facility] Diastolic blood 2021-03-05 20:45:00 91 mm[Hg] Unive rsity of pressure [place] [facility] Heart rate 2021-03-05 20:45:00 100 /min [facility]i ty [facility] [place] [facility] Respiratory rate 2021-03-05 20:45:00 22 /min Univ ersity of [place] [facility] Oxygen saturation in 2021-03-05 20:45:00 93 /min University of Arterial blood by [facility] Pulse oximetry Branch Body temperature 2021-03-05 20:16:00 36 Lorna Univ ersity of [place] [facility] Body height 2021-03-03 21:00:00 152.4 cm [facility] [place] [facility] Body weight 2021-03-03 21:00:00 46.494 kg [facility] [place] [facility] BMI 2021-03-03 21:00:00 20.02 kg/m2 [facility] [place] [facility] Systolic blood 2020-10-17 16:27:00 148 mm[Hg] Univer sity of pressure [place] [facility] Diastolic blood 2020-10-17 16:27:00 86 mm[Hg] Unive rsity of pressure [place] [facility] Heart rate 2020-10-17 16:27:00 71 /min Universi ty [facility] [place] [facility] Oxygen saturation in 2020-10-17 16:27:00 100 /min University of Arterial blood by [facility] Pulse oximetry Branch Systolic blood 2020-10-17 16:27:00 148 mm[Hg] Univer sity of pressure [place] [facility] Diastolic blood 2020-10-17 16:27:00 86 mm[Hg] Unive rsity of pressure [place] [facility] Heart rate 2020-10-17 16:27:00 71 /min Universi ty of [place] [facility] Oxygen saturation in 2020-10-17 16:27:00 100 /min University of Arterial blood by [facility] Pulse oximetry Branch Systolic blood 2020-04-04 19:58:49 139 mm[Hg] Univer sity of pressure [place] [facility] Diastolic blood 2020-04-04 19:58:49 67 mm[Hg] Unive rsity of pressure [place] [facility] Heart rate 2020-04-04 19:58:49 77 /min Universi ty [facility] [place] [facility] Body temperature 2020-04-04 19:58:49 37.28 Lorna Univ ersity [facility] [place] [facility] Respiratory rate 2020-04-04 19:58:49 20 /min Univ ersity of [place] [facility] Oxygen saturation in 2020-04-04 19:58:49 98 /min University of Arterial blood by [facility] Pulse oximetry Branch Body weight 2020-04-04 16:01:00 63.504 kg [facility] Procedures Procedure Date / Time Performing Clinician Source Performed POCT GLUCOSE (AUTOMATED) 2023-01-13 17:22:00 Perfecto Hess [facility] POCT GLUCOSE (AUTOMATED) 2023-01-13 12:57:00 Perfecto Hess [facility] BASIC METABOLIC PANEL 2023-01-13 09:14:[address] [facility] (NA, K, CL, CO2, GLUCOSE, Medica l Branch BUN, CREATININE, CA) POCT GLUCOSE (AUTOMATED) 2023-01-13 02:02:00 Perfecto Hess [facility] POCT GLUCOSE (AUTOMATED) 2023-01-12 21:30:00 Perfecto Hess [facility] POCT GLUCOSE (AUTOMATED) 2023-01-12 16:36:00 Perfecto Hess [facility] POCT GLUCOSE (AUTOMATED) 2023-01-12 13:28:00 Perfecto Hess [facility] POCT GLUCOSE (AUTOMATED) 2023-01-12 01:41:00 Perfecto Hess [facility] POCT GLUCOSE (AUTOMATED) 2023-01-11 21:31:00 Perfecto Hess [facility] POCT GLUCOSE (AUTOMATED) 2023-01-11 17:23:00 Perfecto Hess [facility] MAGNESIUM 2023-01-11 15:21:00 Daniel [facility] BASIC METABOLIC PANEL 2023-01-11 15:21:00 Daniel [facility] (NA, K, CL, CO2, GLUCOSE, Medica l Branch BUN, CREATININE, CA) CBC WITH DIFF 2023-01-11 15:21:00 reji [facility] POCT GLUCOSE (AUTOMATED) 2023-01-11 13:47:00 Perfecto Hess [facility] POCT GLUCOSE (AUTOMATED) 2023-01-11 01:34:00 Perfecto Hess [facility] POCT GLUCOSE (AUTOMATED) 2023-01-10 22:15:00 Perfecto Hess [facility] POCT GLUCOSE (AUTOMATED) 2023-01-10 19:10:00 Perfecto Hess [facility] POCT GLUCOSE (AUTOMATED) 2023-01-10 16:45:00 Perfecto eHss [facility] XR CHEST 1 VW 2023-01-10 15:44:33 reji [facility] o f [facility] CT ABDOMEN WO CONTRAST 2023-01-10 15:42:46 Daniel [facility] POCT GLUCOSE (AUTOMATED) 2023-01-10 13:10:00 Perfecto Hess [facility] BASIC METABOLIC PANEL 2023-01-10 09:58:00 Nicanor Barfield [facility] (NA, K, CL, CO2, GLUCOSE, Medica l Branch BUN, CREATININE, CA) CBC WITH DIFF 2023-01-10 09:58:00 Nicanor Barfield [facility] N-TERMINAL PRO-BNP 2023-01-10 09:58:00 Nicanor Barfield [facility] POCT GLUCOSE (AUTOMATED) 2023-01-10 01:15:00 Perfecto Hess [facility] TRANSTHORACIC ECHO (TTE) 2023-01-09 21:24:57 Nicanor Barfield [facility] POCT GLUCOSE (AUTOMATED) 2023-01-09 21:20:00 Perfecto Hess [facility] HB ECG ROUTINE & RHYTHM 2023-01-09 20:45:12 Michell Ball [facility] CLOSTRIDIUM DIFFICILE 2023-01-09 17:13:00 Nicanor Barfield [facility] POCT GLUCOSE (AUTOMATED) 2023-01-09 17:03:00 Perfecto Hess [facility] POCT GLUCOSE (AUTOMATED) 2023-01-09 12:24:00 Perfecto Hess [facility] MAGNESIUM 2023-01-09 09:44:00 Nicanor Barfield [facility] TROPONIN I 2023-01-09 09:44:00 Michell Ball [facility] BASIC METABOLIC PANEL 2023-01-09 09:44:00 Nicanor Barfield [facility] (NA, K, CL, CO2, GLUCOSE, Medica l Branch BUN, CREATININE, CA) LIPID PANEL ([id number])(TOTAL 2023-01-09 09:44:00 Michell Ball [facility] CHOLESTEROL, [facility] TRIGLYCERIDES, HDL) CBC WITH DIFF 2023-01-09 09:44:00 Carolyne Nicanor [facility] N-TERMINAL PRO-BNP 2023-01-09 09:44:00 Michell Ball [facility] POCT GLUCOSE (AUTOMATED) 2023-01-09 01:23:00 Deshawn [facility] POCT GLUCOSE (AUTOMATED) 2023-01-08 22:42:00 Deshawn [facility] POCT GLUCOSE (AUTOMATED) 2023-01-08 17:24:00 [facility] POCT GLUCOSE (AUTOMATED) 2023-01-08 13:23:00 Deshawn [facility] GLYCOSYLATED HEMOGLOBIN 2023-01-08 09:44:00 Deshawn [facility] (A1C) [facility] LACTIC ACID WHOLE BLOOD 2023-01-08 09:44:00 Deshawn [facility] LACTIC ACID WHOLE BLOOD 2023-01-08 05:46:00 Alina Dinero [facility] XR CHEST 1 VW 2023-01-08 05:38:38 April Shah [facility] o f [facility] ASSIGNMENT OF BENEFITS 2023-01-08 05:26:12 Doctor Unassigned, No [facility] NOTICE OF PRIVACY 2023-01-08 05:25:01 Doctor Unassigned, No [facility] PRACTICES [facility] CONSENT/REFUSAL FOR 2023-01-08 05:24:47 Doctor Unassigned, No [facility] DIAGNOSIS AND TREATMENT [facility] HB ECG ROUTINE & RHYTHM 2023-01-08 05:22:39 April Shah [facility] STRIP Medical Branch LIPASE 2023-01-08 05:20:00 April Shah [facility] TROPONIN I 2023-01-08 05:20:00 April Shah [facility] COMP. METABOLIC PANEL 2023-01-08 05:20:00 April Shah [facility] ([id number]) Medical Branch CBC WITH DIFF 2023-01-08 05:20:00 April Shah [facility] N-TERMINAL PRO-BNP 2023-01-08 05:20:00 April Shah [facility] COVID-[facility] (ID NOW RAPID 2023-01-08 05:20:00 April Shah [facility] TESTING) Medical Branch LAB ONLY COVID 2023-01-08 05:20:00 April Shah [facility] EXTERNAL PROVIDER RECORDS 2021-03-15 05:01:00 Doctor Unassigned, No [facility] POCT GLUCOSE (AUTOMATED) 2021-03-06 17:23:00 Fide Hernandez [facility] POCT GLUCOSE (AUTOMATED) 2021-03-06 17:23:00 Fide Hernandez [facility] POCT GLUCOSE (AUTOMATED) 2021-03-06 13:03:00 Fide Hernandez [facility] POCT GLUCOSE (AUTOMATED) 2021-03-06 13:03:00 Fide Hernandez [facility] BASIC METABOLIC PANEL 2021-03-06 10:29:00 Natanael Taurus [facility] (NA, K, CL, CO2, GLUCOSE, Medica l Branch BUN, CREATININE, CA) CBC WITH DIFF 2021-03-06 10:29:00 Natanael Taurus [facility] BASIC METABOLIC PANEL 2021-03-06 10:29:00 Natanael, Taurus [facility] (NA, K, CL, CO2, GLUCOSE, Medica l Branch BUN, CREATININE, CA) CBC WITH DIFF 2021-03-06 10:29:00 [facility] POCT GLUCOSE (AUTOMATED) 2021-03-06 02:53:00 Fide Hernandez [facility] POCT GLUCOSE (AUTOMATED) 2021-03-06 02:53:00 Fide Hernandez [facility] POCT GLUCOSE (AUTOMATED) 2021-03-05 21:22:00 Fide Hernandez [facility] POCT GLUCOSE (AUTOMATED) 2021-03-05 21:22:00 Fide Hernandez [facility] FULL MOUTH EXTRACTION 2021-03-05 19:01:00 Fide Hernandez [facility] WITH ALVEOLOPLASTY Medical Branc h FULL MOUTH EXTRACTION 2021-03-05 19:01:00 Fide Hernandez [facility] WITH ALVEOLOPLASTY Medical Branc h POCT GLUCOSE (AUTOMATED) 2021-03-05 15:23:00 Fide Hernandez [facility] POCT GLUCOSE (AUTOMATED) 2021-03-05 15:23:00 Fide Hernandez [facility] VANCOMYCIN TROUGH 2021-03-05 15:06:00 [facility] VANCOMYCIN TROUGH 2021-03-05 15:06:00 [facility] POCT GLUCOSE (AUTOMATED) 2021-03-05 12:42:00 Fide Hernandez [facility] POCT GLUCOSE (AUTOMATED) 2021-03-05 12:42:00 Fide Hernandez [facility] BASIC METABOLIC PANEL 2021-03-05 07:14:00 [facility] (NA, K, CL, CO2, GLUCOSE, Medica l Branch BUN, CREATININE, CA) CBC WITH DIFF 2021-03-05 07:14:00 [facility] BASIC METABOLIC PANEL 2021-03-05 07:14:00 [facility] (NA, K, CL, CO2, GLUCOSE, Medica l Branch BUN, CREATININE, CA) CBC WITH DIFF 2021-03-05 07:14:00 [facility] f [facility] POCT GLUCOSE (AUTOMATED) 2021-03-05 01:42:00 Fide Hernandez [facility] POCT GLUCOSE (AUTOMATED) 2021-03-05 01:42:00 Fide Hernandez [facility] POCT GLUCOSE (AUTOMATED) 2021-03-04 22:17:00 Fide Hernandez [facility] POCT GLUCOSE (AUTOMATED) 2021-03-04 22:17:00 Fide Hernandez [facility] POCT GLUCOSE (AUTOMATED) 2021-03-04 16:53:00 Fide Hernandez [facility] POCT GLUCOSE (AUTOMATED) 2021-03-04 16:53:00 Fide Hernandez [facility] XR CHEST 2 VW 2021-03-04 15:10:54 Alejandro Arellano [facility] XR CHEST 2 VW 2021-03-04 15:10:54 Alejandro Arellano [facility] POCT GLUCOSE (AUTOMATED) 2021-03-04 12:21:00 Fide Hernandez [facility] POCT GLUCOSE (AUTOMATED) 2021-03-04 12:21:00 Fide Hernandez [facility] POCT GLUCOSE (AUTOMATED) 2021-03-04 04:33:00 Fide Hernandez [facility] POCT GLUCOSE (AUTOMATED) 2021-03-04 04:33:00 Fide Hernandez [facility] HB ECG ROUTINE & RHYTHM 2021-03-04 03:31:05 [facility] HB ECG ROUTINE & RHYTHM 2021-03-04 03:31:05 [facility] MAGNESIUM 2021-03-04 03:29:00 [facility] C-REACTIVE PROTEIN 2021-03-04 03:[facility]EL 2021-03-04 03:29:00 [facility] (NA, K, CL, CO2, GLUCOSE, Medica l Branch BUN, CREATININE, CA) SEDIMENTATION RATE 2021-03-04 03:29:00 Edilberto [facility] CBC WITH DIFF 2021-03-04 03:29:00 Edilberto [facility] GLYCOSYLATED HEMOGLOBIN 2021-03-04 03:29[facility]00 [facility] EAR CULTURE 2021-03-04 03:29:00 Edilberto [facility] MRSA / MSSA SCREEN BY 2021-03-04 03:29:00 Edilberto [facility] MAGNESIUM 2021-03-04 03:29:00 [facility]OTE[facility] 2021-03-04 03:29:00 [facility]OLIC PANEL 2021-03-04 03:29:00 Edilberto [facility] (NA, K, CL, CO2, GLUCOSE, Medica l Branch BUN, CREATININE, CA) SEDIMENTATION RATE 2021-03-04 03:29:00 Edilberto [facility] CBC WITH DIFF 2021-03-04 03:29:00 Edilberto [facility] GLYCOSYLATED HEMOGLOBIN 2021-03-04 03:29:00 [facility] EAR CULTURE 2021-03-04 03:29:00 [facility] MRSA / MSSA SCREEN BY 2021-03-04 03:29:00 Edilberto [facility] XR KUB 2021-03-04 03:02:00 Edilberto [facility] XR KUB 2021-03-04 03:02:00 [facility]SE (AUTOMATED) 2021-03-04 02:38:00 Fide Hernandez [facility] POCT GLUCOSE (AUTOMATED) 2021-03-04 02:38:00 Fide Hernandez [facility] REFERRAL- 2020-10-06 06:01:00 Doctor Unassigned, [facility] REQUEST/RESPONSE Name [facility] XR KUB 2020-04-04 19:19:57 Jessica Collins [place] [facility] ABDOMEN PELVIS W 2020-04-04 18:03:22 Jessica Collins [facility] COMP. METABOLIC PANEL 2020-04-04 16:54:00 Jessica Collins [facility] ([id number]) [facility] CBC WITH DIFF 2020-04-04 16:54:00 Jessica Collins [place] [facility] NOTICE OF PRIVACY 2020-04-04 15:52:41 Doctor Unassigned, No [facility]ICES Name Medical Branch Encounters Start End Encounter Admission Attending Care Care Encounter Source Date/Time Date/Time Type Type Clinicians Facility Department ID 2021-07-09 Inpatient U LUCAS [facility] BARB [id number] Univers 04:04:21 FIDE [facility] 2023-05-27 2023-05-27 Outpatient R SHIMA [facility] [id number] Univers 10:53:18 23:59:00 RANDY [facility] 2023-04-29 2023-04-29 Outpatient SFA SFA [id number] [place] 09:57:53 09:57:53 0822 F [place] 2023-03-24 2023-03-24 Outpatient SFA SFA [id number] Carrillo 14:58:45 14:58:45 0717 F [place] 2023-01-29 2023-01-29 Outpatient R JAKE [facility] [id number] Univers 13:40:00 13:40:00 ANNIA [facility] 2023-01-15 2023-01-15 Transition ORLIN Damon 1.2.840.114 [id number] Univers 00:00:00 00:00:00 of Care Janeth FISHMAN [id number] i ty of [id number] [address] Branch 2023-01-08 2023-01-13 Inpatient X DESHAWN [facility] ESTUARDO [id number] Univers 00:04:00 17:15:00 PERFECTO [facility] 2023-01-08 2023-01-13 [facility] 1.2.84 [id number] [id number] Univers 00:04:00 17:15:00 Encounter Perfecto Hess 350.1.13.10 ity of Suzanne Smith 4.2.7.2.686 [facility] [id number] [facility] 081 Branch 2021-03-15 2021-03-15 Orders Doctor SHARIFA 1.2.840.114 [id number] Univers 00:00:00 00:00:00 Only Unassigned, SOLITARIO [id number] ity of [place] [facility] 4.2.7.2.686 Eduardo as [id number] [facility] 009 Branch 2021-03-15 2021-03-15 Orders Doctor SHARIFA 1.2.840.114 [id number] 00:00:00 00:00:00 Only Unassigned, SOLITARIO 350.1.13.10 [place] [facility] 4.2.7.2.686 [id number] 009 2021-03-07 2021-03-07 Transition Orlin Damon 1.2.840.114 [id number] Univers 00:00:00 00:00:00 of Care Janeth M Varghese 350.1.13.10 i ty [place] [id number] [facility] 403 Branch 2021-03-07 2021-03-07 Transition Orlin Damon 1.2.840.114 [id number] 00:00:00 00:00:00 of Care Janeth Mejia Fishman 350.1.13.10 [place] 4.2.7.2.686 [id number] 2021-03-03 2021-03-06 [facility] Marcelle Hernandez 1.2.840.114 [id number] [facility] 16:42:00 15:52:00 Encounter Fide Jerez 350.1.13.10 ity of Hospital 4.2.7.2.686 Eduardo as [id number] [facility] 098 Branch 2021-03-03 2021-03-06 [facility] Marcelle Hernandez 1.2.840.114 [id number] 16:42:00 15:52:00 Encounter Fide Jerez 350.1.13.10 Hospital 4.2.7.2.686 [id number] 098 2021-03-05 2021-03-05 Surgery Marcelle Hernandez 1.2.840.114 [id number] Univers 13:53:00 16:01:00 Fide Corral Solit[place] 350.1.13.10 it y of [address]2.686 Eduardo as [id number] [address] 2021-03-05 2021-03-05 Surgery Marcelle 1.2.840.114 [id number] 13:53:00 16:01:00 Solitario 350.1.13.10 [place] [address].2.686 [id number] 103 2021-03-05 2021-03-05 Anesthesia DeSkylere 1.2.840.114 [id number] Univers 14:09:00 15:23:00 Event Jeremiah Schulte 350.1.13.10 ity [place] [address]..7.2.686 Eduardo as [id number] [address] 2021-03-05 2021-03-05 Anesthesia DeSkyler 1.2.840.114 [id number] 14:09:00 15:23:00 Event Jeremiah Schulte 350.1.13.10 [place] [address].7.2.686 [id number] 103 2020-11-13 2020-11-13 Outpatient Ellis BALL, [facility] [id number] Univers 13:00:00 13:00:00 SENDIL ity of [facility] 2020-10-17 2020-10-17 Office [facility] 1.2.840.114 [id number] [facility] 10:00:12 13:40:16 Visit Han Lyons 350.1.13.[address] Profess[place] [phone] Al dic[address] 2020-10-17 2020-10-17 Office [facility] 1.2.840.114 [id number] 10:00:12 13:40:16 Visit Han Lyons 350.1.13.10 [place] 4.2.7.2.686 Professio [id number] nal 092 Building 2020-10-17 2020-10-17 Outpatient R HAN ELAM [facility] [id number] Univers 10:00:00 10:00:00 HAN ELAM ity of [facility] 2020-10-06 2020-10-06 Orders Doctor SHARIFA 1.2.840.114 [id number] Univers 00:00:00 00:00:00 Only Unassigned, SOLITARIO 350.1.13.10 ity of [place] [facility] 4.2.7.2.686 Eduardo [id number] [facility] 009 Branch 2020-04-04 2020-04-04 Emergency [facility] [id number] Univers 11:03:02 15:12:00 Jessica Ellis Serena 350.1.13.10 i ty of [place] 4.2.7.2.686 [facility] [id number] [facility] 084 Branch 2020-04-04 2020-04-04 Emergency X [facility] ERT [id number] Univers 10:53:00 10:53:00 ity of [facility] 2019-04-20 2019-04-20 Outpatient Brazeaston Fraustot [id number] Common 13:00:00 13:00:00 [facility] [address] [facility] 2019-04-09 2019-04-09 Outpatient Brazeaston Fraustot [id number] Common 10:46:00 10:46:00 t [facility] [address] [facility] 2019-03-17 2019-03-17 Outpatient [place] [facility] [id number] Common 11:16:00 11:16:00 t [facility] [address] [facility] 2019-03-09 2019-03-09 Outpatient [place] [facility] [id number] Common 09:17:00 09:17:00 t [facility] [address] [facility] 2019-02-25 2019-02-25 Outpatient Brazeaston Fraustot [id number] Common 09:30:00 09:30:[address] [facility] 2019-01-22 2019-01-22 [facility]patient [facility] [id number] Common 16:32:00 16:32:[address] [facility] 2018-12-25 2018-12-25 [facility]patient [facility] [id number] Common 16:16:00 16:16:[address] [facility] 2018-12-11 2018-12-11 Outpatient [facility] [id number] Common 09:32:00 09:32:[address] [facility] 2018-12-09 2018-12-09 [facility]patient [facility] [id number] Common 15:59:00 15:59:[address] [facility] 2018-12-01 2018-12-01 [facility]patient [facility] [id number] Common 16:57:00 16:57:[address] [facility] 2018-11-24 2018-11-24 Outpatient [facility] [id number] Common 14:15:00 14:15:[address] [facility] Results Test Description Test Time Test Comments Results Result Comments Source POCT GLUCOSE (AUTOMATED) 2023-01-13 17:23:11 Test Item Value Reference Range Interpretation Comme nts POCT GLU (test code = 8464173890) 244 mg/dL 70-110 H Lab Interpretation (test code = 71159-8) Abnormal [facility] GLUCOSE (AUTOMATED)2023-01-13 13:06:45 Test Item Value Reference Range Interpretation Comments POCT GLU (test code = 2217606427) 144 mg/dL 70-110 H Lab Interpretation (test code = Abnormal 72224-5) [facility] GLUCOSE (AUTOMATED)2023-01-13 02:06:41 Test Item Value Reference Range Interpretation Comments POCT GLU (test code = 7118883597) 214 mg/dL 70-110 H Lab Interpretation (test code = Abnormal 06072-4) [facility] GLUCOSE (AUTOMATED)2023-01-12 21:32:11 Test Item Value Reference Range Interpretation Comments POCT GLU (test code = 7080102365) 286 mg/dL 70-110 H Lab Interpretation (test code = Abnormal 89597-5) [facility] GLUCOSE (AUTOMATED)2023-01-12 16:37:14 Test Item Value Reference Range Interpretation Comments POCT GLU (test code = 9229149709) 167 mg/dL 70-110 H Lab Interpretation (test code = Abnormal 67621-4) [facility] GLUCOSE (AUTOMATED)2023-01-12 13:29:32 Test Item Value Reference Range Interpretation Comments POCT GLU (test code = 2752620590) 136 mg/dL 70-110 H Lab Interpretation (test code = Abnormal 84141-8) [facility] GLUCOSE (AUTOMATED)2023-01-12 01:52:29 Test Item Value Reference Range Interpretation Comments POCT GLU (test code = 7408919210) 190 mg/dL 70-110 H Lab Interpretation (test code = Abnormal 22014-0) [facility] GLUCOSE (AUTOMATED)2023-01-11 21:32:39 Test Item Value Reference Range Interpretation Comments POCT GLU (test code = 3661500640) 235 mg/dL 70-110 H Lab Interpretation (test code = Abnormal 66750-5) [facility] GLUCOSE (AUTOMATED)2023-01-11 17:24:51 Test Item Value Reference Range Interpretation Comments POCT GLU (test code = 3978610922) 180 mg/dL 70-110 H Lab Interpretation (test code = Abnormal 30979-9) [facility] GLUCOSE (AUTOMATED)2023-01-11 13:48:22 Test Item Value Reference Range Interpretation Comments POCT GLU (test code = 4220036717) 174 mg/dL 70-110 H Lab Interpretation (test code = Abnormal 67081-7) [facility] GLUCOSE (AUTOMATED)2023-01-11 01:35:03 Test Item Value Reference Range Interpretation Comments POCT GLU (test code = 5571859956) 190 mg/dL 70-110 H Lab Interpretation (test code = Abnormal 75943-2) [facility] GLUCOSE (AUTOMATED)2023-01-10 22:23:27 Test Item Value Reference Range Interpretation Comments POCT GLU (test code = 7986073115) 154 mg/dL 70-110 H Lab Interpretation (test code = Abnormal 55981-1) [facility] GLUCOSE (AUTOMATED)2023-01-10 19:13:52 Test Item Value Reference Range Interpretation Comments POCT GLU (test code = 8001378264) 104 mg/dL 70-110 Lab Interpretation (test code = Normal 63190-8) [facility] GLUCOSE (AUTOMATED)2023-01-10 16:52:16 Test Item Value Reference Range Interpretation Comments POCT GLU (test code = 4612749845) 108 mg/dL 70-110 Lab Interpretation (test code = Normal 50543-9) [facility] WITH [id number] 13:59:08 Test Item Value Reference Range Interpretation Comments WBC (test code = 9.31 See_Comment [Automated 5990-2) message] The system which generated this result transmitted reference range : 4.30 - 11.10 10*3/?L. The reference range was not used to interpret this result as normal/abnormal . RBC (test code = 4.59 See_Comment [Automated 459-8) message] The system which generated this result [...] RDW-SD (test code = 43.8 fL 39.0-49.9 43272-1) RDW-CV (test code = 13.6 % 12.0-15.5 788-0) PLT (test code = 192 See_Comment [Automated 777-3) message] The system which generated this result transmitted reference range : 166 - 358 10*3/?L. The reference range was not used to interpret this result as normal/abnormal . MPV (test code = 11.0 fL 9.5-12.9 80638-5) NRBC/100 WBC (test 0.0 See_Comment [Automat ed code = 0067935869) message] The system which generated this result transmitted reference range : 0.0 - 10.0 /100 WBCs. The reference range was not used to interpret this result as normal/abnormal . NRBC x10^3 (test code See_Comment [Auto mated = 5997918725) message] The system which generated this result transmitted reference range : 10*3/?L. The reference range was not used to interpret this result as normal/abnormal . GRAN MAT (NEUT) % 82.5 % (test code = 770-8) IMM GRAN % (test code 0.60 % = 5198526328) LYMPH % (test code = 7.7 % 736-9) MONO % (test code = 9.0 % 5905-5) EOS % (test code = 0.0 % 713-8) BASO % (test code = 0.2 % 706-2) GRAN MAT x10^3(ANC) 7.67 10*3/uL 1.88-7.09 H (test code = 9314990348) IMM GRAN x10^3 (test 0.06 10*3/uL 0.00-0.06 code = 3632869894) LYMPH x10^3 (test 0.72 10*3/uL 1.32-3.29 L code = 731-0) MONO x10^3 (test code 0.84 10*3/uL 0.33-0.92 = 742-7) EOS x10^3 (test code 0.03-0.39 L = 711-2) BASO x10^3 (test code 0.01-0.07 = 704-7) EMMIE CELLS (test code 2+ See_Comment A [Auto mated = 7790-9) message] The system which generated this result transmitted reference range : (none). The reference range was not used to interpret this result as normal/abnormal . BANDS (test code = MARKED INCREASED A 2325583539) DOHLE BODIES (test Present A code = 7792-5) Lab Interpretation Abnormal (test code = 91009-5) [facility] 13:16:35 Test Item Value Reference Range Interpretation Comments POCT GLU (test code = 2981988784) 135 mg/dL 70-110 H Lab Interpretation (test code = Abnormal 41157-8) [facility] [id number] 11:43:50 Test Item Value Reference Range Interpretation Comments NT-proBNP (test code = 9430 pg/mL <=125 H 2815424418) SERGIO (test code = SERGIO) Biotin has been reported to cause a negative bias, interpret results relative to patient's use of biotin. Lab Interpretation (test Abnormal code = 28292-6) [facility] METABOLIC PANEL (NA, K, CL, CO2, GLUCOSE, BUN, CREATININE, CA)2023-01-10 11:41:08 Test Item Value Reference Range Interpretation Comments NA (test code = 138 mmol/L 135-145 1298632157) K (test code = 4.5 mmol/L 3.5-5.0 8736102933) CL (test code = 100 mmol/L 98-108 0188963152) CO2 TOTAL (test code = 28 mmol/L 23-31 4216342439) AGAP (test code = 10 2-16 4814456135) BUN (test code = 90 mg/dL 7-23 H 4025746066) GLUCOSE (test code = 132 mg/dL 70-110 H 3585002177) CREATININE (test code = 1.63 mg/dL 0.50-1.04 H 9706758839) CALCIUM (test code = 8.5 mg/dL 8.6-10.6 L 9071997185) eGFR (test code = 32.0 mL/min/1.73m2 8433377416) SERGIO (test code = SERGIO) Association of [...] tests). Lab Interpretation Abnormal (test code = 95211-7) [facility]23-[facility]10 01:18:35 Test Item Value Reference Range Interpretation Comments POCT GLU (test code = 5576144372) 153 mg/dL 70-110 H Lab Interpretation (test code = Abnormal 08722-9) [facility] [id number] 00:07:56 Test Item Value Reference Range Interpretation Comments NT-proBNP (test code = 882 pg/mL <=125 H 9849879558) SERGIO (test code = SERGIO) Biotin has been reported to cause a negative bias, interpret results relative to patient's use of biotin. Lab Interpretation (test Abnormal code = 52207-7) [facility] [id number] 00:07:36 Test Item Value Reference Range Interpretation Comments TROPONIN I (test code = 0.081 ng/mL <=0.034 H 7058579031) SERGIO (test code = SERGIO) Reference (Normal) [...] biotin. Lab Interpretation Abnormal (test code = 10765-0) [facility] (74708)(TOTAL CHOLESTEROL, TRIGLYCERIDES, HDL)2023-01-09 23:15:06 Test Item Value Reference Range Interpretation Comments CHOL (test code = 3884988113) 101 mg/dL 120-200 L HDL (test code = 1971366597) 26 mg/dL >=50 L HDLC RATIO (test code = 0628597741) 3.9 <=4.5 TRIG (test code = 5801493489) 319 mg/dL 30-170 H LDL CHOL (test code = 09326-4) 11 mg/dL <=160 VLDL (test code = 3405221101) 64 mg/dL 5-60 H Lab Interpretation (test code = Abnormal 01247-1) [facility] GLUCOSE (AUTOMATED)2023-01-09 21:21:21 Test Item Value Reference Range Interpretation Comments POCT GLU (test code = 8932474999) 230 mg/dL 70-110 H Lab Interpretation (test code = Abnormal 58981-6) [facility] GLUCOSE (AUTOMATED)2023-01-09 17:04:39 Test Item Value Reference Range Interpretation Comments POCT GLU (test code = 125 mg/dL 70-110 H Notifi ed Provider 1735638025) Lab Interpretation (test Abnormal code = 77212-8) [facility] GLUCOSE (AUTOMATED)2023-01-09 12:42:13 Test Item Value Reference Range Interpretation Comments POCT GLU (test code = 3622017843) 102 mg/dL 70-110 Lab Interpretation (test code = Normal 80196-5) [facility] WITH [id number] 12:05:19 Test Item Value Reference Range Interpretation [...] RDW-SD (test code = 42.5 fL 39.0-49.9 06297-2) RDW-CV (test code = 13.5 % 12.0-15.5 788-0) PLT (test code = 246 See_Comment [Automated 777-3) message] The sy stem which generated this result transmitted reference range : 166 - 358 10*3/ ?L. The reference r maría was not used to interpret this result as normal/abnormal . MPV (test code = 10.6 fL 9.5-12.9 73509-5) NRBC/100 WBC (test 0.0 See_Comment [Automat ed code = 2868647840) message] The system which generated this result transmitted reference range : 0.0 - 10.0 /100 WBCs. The refer ence range was not u sed to interpret th is result as normal/abnormal . NRBC x10^3 (test code See_Comment [Auto mated = 3234507626) message] The s ystem which generated this result transmitted reference range : 10*3/?L. The reference range was not used to interpret this result as normal/abnormal . SEG % (test code = 77 % 33-76 H 01785-7) LYMPH % (test code = 8 % 14-54 L 23776-0) MONO % (test code = 15 % 0-4 H 10089-1) ANC (test code = 9.36 10*3/uL 1.88-7.09 H 753-4) Lab Interpretation Abnormal (test code = 25651-1) [facility] 10:40:06 Test Item Value Reference Range Interpretation Comments MAGNESIUM (test code = 0626021993) 2.2 mg/dL 1.7-2.4 Lab Interpretation (test code = Normal 15076-7) [facility] (NA, K, CL, CO2, GLUCOSE, BUN, CREATININE, CA)2023-01-09 10:40:05 Test Item Value Reference Range Interpretation Comments NA (test code = 136 mmol/L 135-145 9744423834) K (test code = 4.3 mmol/L 3.5-5.0 5900946944) CL (test code = 102 mmol/L 98-108 2648748163) CO2 TOTAL (test code = 23 mmol/L 23-31 1843465230) AGAP (test code = 11 2-16 2681807130) BUN (test code = 82 mg/dL 7-23 H 9725729549) GLUCOSE (test code = 117 mg/dL 70-110 H 4795844956) CREATININE (test code = 2.10 mg/dL 0.50-1.04 H 2736411171) CALCIUM (test code = 8.4 mg/dL 8.6-10.6 L 4613202702) eGFR (test code = 23.9 mL/min/1.73m2 0903242765) SERGIO (test code = SERGIO) Association of [...] tests). Lab Interpretation Abnormal (test code = 49019-9) [facility] GLUCOSE (AUTOMATED)2023-01-09 01:27:38 Test Item Value Reference Range Interpretation Comments POCT GLU (test code = 8770489226) 189 mg/dL 70-110 H Lab Interpretation (test code = Abnormal 43783-7) [facility] GLUCOSE (AUTOMATED)2023-01-08 22:44:03 Test Item Value Reference Range Interpretation Comments POCT GLU (test code = 3614011065) 206 mg/dL 70-110 H Lab Interpretation (test code = Abnormal 02350-7) [facility] GLUCOSE (AUTOMATED)2023-01-08 17:25:33 Test Item Value Reference Range Interpretation Comments POCT GLU (test code = 0066421470) 141 mg/dL 70-110 H Lab Interpretation (test code = Abnormal 73740-5) [facility] GLUCOSE (AUTOMATED)2023-01-08 13:24:48 Test Item Value Reference Range Interpretation Comments POCT GLU (test code = 1194896370) 111 mg/dL 70-110 H Lab Interpretation (test code = Abnormal 86266-5) [facility] (A1C)2023-01-08 10:17:45 Test Item Value Reference Range Interpretation Comments HGB A1C (test code = 5.4 % 4.0-5.7 4548-4) SERGIO (test code = SERGIO) Reference RangesNormal: <5.7%Prediabetes: 5.7 - 6.4%Diabetes: > 6.5% Lab Interpretation (test Normal code = 05879-0) [facility] WITH [id number] 06:26:26 Test Item Value Reference Range Interpretation [...] RDW-SD (test code = 43.6 fL 39.0-49.9 46497-7) RDW-CV (test code = 13.4 % 12.0-15.5 788-0) PLT (test code = 233 See_Comment [Automated 777-3) message] The sy stem which generated this result transmitted reference range : 166 - 358 10*3/ ?L. The reference r maría was not used to interpret this result as normal/abnormal . MPV (test code = 10.6 fL 9.5-12.9 36125-0) NRBC/100 WBC (test 0.0 See_Comment [Automat ed code = 9946494648) message] The system which generated this result transmitted reference range : 0.0 - 10.0 /100 WBCs. The refer ence range was not u sed to interpret th is result as normal/abnormal . NRBC x10^3 (test code See_Comment [Auto mated = 0100667878) message] The s ystem which generated this result transmitted reference range : 10*3/?L. The reference range was not used to interpret this result as normal/abnormal . SEG % (test code = 56 % 33-76 77112-2) BAND % (test code = 32 % 0-1 H 60094-5) LYMPH % (test code = 12 % 14-54 L 65627-4) ANC (test code = 7.21 10*3/uL 1.88-7.09 H 753-4) TOXIC CHANGES (test Present A code = 803-7) PLT ESTIMATE (test Normal Normal code = 9317-9) Lab Interpretation Abnormal (test code = 63945-7) [facility] [id number] 05:57:18 Test Item Value Reference Range Interpretation Comments TROPONIN I (test code = 0.113 ng/mL <=0.034 H 8134429383) SERGIO (test code = SERGIO) Reference (Normal) [...] biotin. Lab Interpretation Abnormal (test code = 68589-7) [facility] [id number] 05:53:56 Test Item Value Reference Range Interpretation Comments NT-proBNP (test code = 912 pg/mL <=125 H 9544740493) SERGIO (test code = SERGIO) Biotin has been reported to cause a negative bias, interpret results relative to patient's use of biotin. Lab Interpretation (test Abnormal code = 64467-6) [facility]COMP[facility] METABOLIC PANEL ([id number])2023-01-08 05:45:19 Test Item Value Reference Range Interpretation Comments NA (test code = 135 mmol/L 135-145 7534098048) K (test code = 4.7 mmol/L 3.5-5.0 8521597096) CL (test code = 97 mmol/L 98-108 L 2466171122) CO2 TOTAL (test code = 26 mmol/L 23-31 1206208989) AGAP (test code = 12 2-16 2239021450) BUN (test code = 52 mg/dL 7-23 H 9342816033) GLUCOSE (test code = 125 mg/dL 70-110 H 3670130470) CREATININE (test code = 1.53 mg/dL 0.50-1.04 H 0160945156) TOTAL BILI (test code = 0.5 mg/dL 0.1-1.0 6623406463) CALCIUM (test code = 8.4 mg/dL 8.6-10.6 L 8538438389) T PROTEIN (test code = 7.4 g/dL 6.3-8.2 2916499342) ALBUMIN (test code = 3.6 g/dL 3.5-5.0 0737707776) ALK PHOS (test code = 76 U/L 34-122 9137613622) ALTv (test code = 18 U/L 5-35 1742-6) AST(SGOT) (test code = 42 U/L 13-40 H 4876221202) eGFR (test code = 34.4 mL/min/1.73m2 9929242694) SERGIO (test code = SERGIO) Association of [...] tests). Lab Interpretation Abnormal (test code = 87386-8) [facility]ville[facility]IP[facility], [id number] 05:44:54 Test Item Value Reference Range Interpretation Comments LIPASE (test code = 4074464015) 98 U/L 0-220 Lab Interpretation (test code = Normal 51296-8) [facility] GLUCOSE (AUTOMATED)2021-03-06 17:24:16 Test Item Value Reference Range Interpretation Comments POCT GLU (test code = 0481926406) 100 mg/dL 70-110 Lab Interpretation (test code = Normal 45946-2) [facility] GLUCOSE (AUTOMATED)2021-03-06 17:24:16 Test Item Value Reference Range Interpretation Comments POCT GLU (test code = 4361427409) 100 mg/dL 70-110 Lab Interpretation (test code = Normal 61445-2) [facility]XR [id number] 16:58:13FINDINGS/IMPRESSION: The gastrostomy tube terminates in the [...] was used earlier today byfamily. COMPARISON: 04/04/2020 [facility], Radiant Results Inft User - 03/06/2021 11:59 [...] reviewed this study and agree with the abovereport.[facility]villeXR [id number] 16:58:13 FINDINGS/IMPRESSION: The gastrostomy tube terminates in [...] was used earlier today byfamily. COMPARISON: 04/04/2020 [facility], Radiant Results Inft User - 03/06/2021 11:59 [...] reviewed this study and agree with the abovereport.[facility] [id number] 13:29:29 Test Item Value Reference Range Interpretation Comments Ear Culture (test 1+ Skin nannette: Commensal code = 608-0) skin microorganisms only. SERGIO (test code = Bacterial pathogens SERGIO) associated with wound infections were not identified, which include Pseudomonas aeruginosa and Staphylococcus aureus (MRSA or MSSA). [facility] [id number] 13:29:29 Test Item Value Reference Range Interpretation Comments Ear Culture (test 1+ Skin nannette: Commensal code = 608-0) skin microorganisms only. SERGIO (test code = Bacterial pathogens SERGIO) associated with wound infections were not identified, which include Pseudomonas aeruginosa and Staphylococcus aureus (MRSA or MSSA). [facility] GLUCOSE (AUTOMATED)2021-03-06 13:04:33 Test Item Value Reference Range Interpretation Comments POCT GLU (test code = 3127216522) 103 mg/dL 70-110 Lab Interpretation (test code = Normal 47044-1) [facility] GLUCOSE (AUTOMATED)2021-03-06 13:04:33 Test Item Value Reference Range Interpretation Comments POCT GLU (test code = 2522439034) 103 mg/dL 70-110 Lab Interpretation (test code = Normal 46700-8) [facility] METABOLIC PANEL (NA, K, CL, CO2, GLUCOSE, BUN, CREATININE, CA)2021-03-06 11:16:48 Test Item Value Reference Range Interpretation Comments NA (test code = 136 mmol/L 135-145 0738225734) K (test code = 4.6 mmol/L 3.5-5.0 0845847383) CL (test code = 100 mmol/L 98-108 6556363359) CO2 TOTAL (test code = 32 mmol/L 23-31 H 3200199275) AGAP (test code = 2-16 8878743671) BUN (test code = 25 mg/dL 7-23 H 8318203278) GLUCOSE (test code = 111 mg/dL 70-110 H 7119552235) CREATININE (test code = 0.59 mg/dL 0.50-1.04 2061518215) CALCIUM (test code = 8.5 mg/dL 8.6-10.6 L 8527439769) eGFR (test code = mL/min/1.73m2 5890379182) SERGIO (test code = SERGIO) Association of [...] tests). Lab Interpretation Abnormal (test code = 65256-2) [facility] METABOLIC PANEL (NA, K, CL, CO2, GLUCOSE, BUN, CREATININE, CA)2021-03-06 11:16:48 Test Item Value Reference Range Interpretation Comments NA (test code = 136 mmol/L 135-145 0852305285) K (test code = 4.6 mmol/L 3.5-5.0 1552726891) CL (test code = 100 mmol/L 98-108 6841646406) CO2 TOTAL (test code = 32 mmol/L 23-31 H 1488739424) AGAP (test code = 2-16 7247632306) BUN (test code = 25 mg/dL 7-23 H 0672606943) GLUCOSE (test code = 111 mg/dL 70-110 H 5585321973) CREATININE (test code = 0.59 mg/dL 0.50-1.04 2867507011) CALCIUM (test code = 8.5 mg/dL 8.6-10.6 L 6635991052) eGFR (test code = mL/min/1.73m2 1313713438) SERGIO (test code = SERGIO) Association of [...] tests). Lab Interpretation Abnormal (test code = 38012-4) [facility] WITH [id number] 10:49:43 Test Item Value Reference Range Interpretation Comments WBC (test code = See_Comment H [Automated 1390-2) message] The sy stem which generated this result transmitted reference range : 4.30 - 11.10 10*3/?L. The reference range was not used to interpret this result as normal/abnormal . RBC (test code = See_Comment L [Automated 189-8) message] The sy stem which generated this [...] RDW-SD (test code = 41.3 fL 39.0-49.9 14305-7) RDW-CV (test code = 12.4 % 12.0-15.5 788-0) PLT (test code = See_Comment [Automated 777-3) message] The sy stem which generated this result transmitted reference range : 166 - 358 10*3/ ?L. The reference r maría was not used to interpret this result as normal/abnormal . MPV (test code = 10.5 fL 9.5-12.9 80096-9) NRBC/100 WBC (test See_Comment [Automat ed code = 3675134654) message] The system which generated this result transmitted reference range : 0.0 - 10.0 /100 WBCs. The refer ence range was not u sed to interpret th is result as normal/abnormal . NRBC x10^3 (test code <0.01 See_Comment [Auto mated = 5095305384) message] The s ystem which generated this result transmitted reference range : 10*3/?L. The reference range was not used to interpret this result as normal/abnormal . GRAN MAT (NEUT) % 83.9 % (test code = 770-8) IMM GRAN % (test code 0.40 % = 7139717687) LYMPH % (test code = 9.5 % 736-9) MONO % (test code = 5.9 % 5905-5) EOS % (test code = 0.1 % 713-8) BASO % (test code = 0.2 % 706-2) GRAN MAT x10^3(ANC) 9.91 10*3/uL 1.88-7.09 H (test code = 7408056334) IMM GRAN x10^3 (test 0.05 10*3/uL 0.00-0.06 code = 1243530017) LYMPH x10^3 (test code 1.12 10*3/uL 1.32-3.29 L = 731-0) MONO x10^3 (test code 0.70 10*3/uL 0.33-0.92 = 742-7) EOS x10^3 (test code = <0.03 0.03-0.39 L 711-2) BASO x10^3 (test code <0.03 0.01-0.07 = 704-7) Lab Interpretation Abnormal (test code = 07255-8) [facility] WITH [id number] 10:49:43 Test Item Value Reference Range Interpretation [...] RDW-SD (test code = 41.3 fL 39.0-49.9 57961-1) RDW-CV (test code = 12.4 % 12.0-15.5 788-0) PLT (test code = See_Comment [Automated 777-3) message] The sy stem which generated this result transmitted reference range : 166 - 358 10*3/ ?L. The reference r maría was not used to interpret this result as normal/abnormal . MPV (test code = 10.5 fL 9.5-12.9 86834-6) NRBC/100 WBC (test See_Comment [Automat ed code = 4642371403) message] The system which generated this result transmitted reference range : 0.0 - 10.0 /100 WBCs. The refer ence range was not u sed to interpret th is result as normal/abnormal . NRBC x10^3 (test code <0.01 See_Comment [Auto mated = 5265108501) message] The s ystem which generated this result transmitted reference range : 10*3/?L. The reference range was not used to interpret this result as normal/abnormal . GRAN MAT (NEUT) % 83.9 % (test code = 770-8) IMM GRAN % (test code 0.40 % = 1687208510) LYMPH % (test code = 9.5 % 736-9) MONO % (test code = 5.9 % 5905-5) EOS % (test code = 0.1 % 713-8) BASO % (test code = 0.2 % 706-2) GRAN MAT x10^3(ANC) 9.91 10*3/uL 1.88-7.09 H (test code = 5931634574) IMM GRAN x10^3 (test 0.05 10*3/uL 0.00-0.06 code = 9602375494) LYMPH x10^3 (test code 1.12 10*3/uL 1.32-3.29 L = 731-0) MONO x10^3 (test code 0.70 10*3/uL 0.33-0.92 = 742-7) EOS x10^3 (test code = <0.03 0.03-0.39 L 711-2) BASO x10^3 (test code <0.03 0.01-0.07 = 704-7) Lab Interpretation Abnormal (test code = 87465-0) [facility] GLUCOSE (AUTOMATED)2021-03-06 02:54:54 Test Item Value Reference Range Interpretation Comments POCT GLU (test code = 8072317806) 177 mg/dL 70-110 H Lab Interpretation (test code = Abnormal 09151-5) [facility] GLUCOSE (AUTOMATED)2021-03-06 02:54:54 Test Item Value Reference Range Interpretation Comments POCT GLU (test code = 6687710346) 177 mg/dL 70-110 H Lab Interpretation (test code = Abnormal 89009-1) [facility] GLUCOSE (AUTOMATED)2021-03-05 21:32:59 Test Item Value Reference Range Interpretation Comments POCT GLU (test code = 2129875034) 121 mg/dL 70-110 H Lab Interpretation (test code = Abnormal 38776-0) [facility] GLUCOSE (AUTOMATED)2021-03-05 21:32:59 Test Item Value Reference Range Interpretation Comments POCT GLU (test code = 5237836921) 121 mg/dL 70-110 H Lab Interpretation (test code = Abnormal 88555-2) [facility] - Draw within 30 minutes prior to 4TH dose.2021-03-05 17:44:58 Test Item Value Reference Range Interpretation Comments VANCO TROUGH (test code 15.3 ug/mL 10.0-20.0 = 2781252769) SERGIO (test code = SERGIO) Toxic Range: ?>20 ug/mL 15-20 ug/mL is recommended for severe infection or when Vancomycin DALIA is greater than or equal to 2. Lab Interpretation (test Normal code = 66134-9) [facility] - Draw within 30 minutes prior to 4TH dose.2021-03-05 17:44:58 Test Item Value Reference Range Interpretation Comments VANCO TROUGH (test code 15.3 ug/mL 10.0-20.0 = 9916076697) SERGIO (test code = SERGIO) Toxic Range: ?>20 ug/mL 15-20 ug/mL is recommended for severe infection or when Vancomycin DALIA is greater than or equal to 2. Lab Interpretation (test Normal code = 57497-4) [facility] GLUCOSE (AUTOMATED)2021-03-05 15:24:59 Test Item Value Reference Range Interpretation Comments POCT GLU (test code = 4167840306) 94 mg/dL 70-110 Lab Interpretation (test code = Normal 17434-6) [facility] GLUCOSE (AUTOMATED)2021-03-05 15:24:59 Test Item Value Reference Range Interpretation Comments POCT GLU (test code = 8099366351) 94 mg/dL 70-110 Lab Interpretation (test code = Normal 79832-1) [facility] GLUCOSE (AUTOMATED)2021-03-05 12:44:06 Test Item Value Reference Range Interpretation Comments POCT GLU (test code = 8202836074) 70 mg/dL 70-110 Lab Interpretation (test code = Normal 32693-1) [facility] GLUCOSE (AUTOMATED)2021-03-05 12:44:06 Test Item Value Reference Range Interpretation Comments POCT GLU (test code = 5549847276) 70 mg/dL 70-110 Lab Interpretation (test code = Normal 07168-5) [facility] METABOLIC PANEL (NA, K, CL, CO2, GLUCOSE, BUN, CREATININE, CA)2021-03-05 07:33:07 Test Item Value Reference Range Interpretation Comments NA (test code = 139 mmol/L 135-145 1007228821) K (test code = 4.4 mmol/L 3.5-5.0 5420828523) CL (test code = 103 mmol/L 98-108 0023434159) CO2 TOTAL (test code = 31 mmol/L 23-31 9196049863) AGAP (test code = 2-16 1972515787) BUN (test code = 25 mg/dL 7-23 H 9800255081) GLUCOSE (test code = 97 mg/dL 70-110 7719270841) CREATININE (test code = 0.59 mg/dL 0.50-1.04 9762402037) CALCIUM (test code = 8.5 mg/dL 8.6-10.6 L 1519446775) eGFR (test code = mL/min/1.73m2 3150410153) SERGIO (test code = SERGIO) Association of [...] tests). Lab Interpretation Abnormal (test code = 29110-8) [facility] METABOLIC PANEL (NA, K, CL, CO2, GLUCOSE, BUN, CREATININE, CA)2021-03-05 07:33:07 Test Item Value Reference Range Interpretation Comments NA (test code = 139 mmol/L 135-145 9553083903) K (test code = 4.4 mmol/L 3.5-5.0 0448084740) CL (test code = 103 mmol/L 98-108 7628213875) CO2 TOTAL (test code = 31 mmol/L 23-31 5241229162) AGAP (test code = 2-16 2315208735) BUN (test code = 25 mg/dL 7-23 H 2780452212) GLUCOSE (test code = 97 mg/dL 70-110 2042307388) CREATININE (test code = 0.59 mg/dL 0.50-1.04 0872445263) CALCIUM (test code = 8.5 mg/dL 8.6-10.6 L 2654115230) eGFR (test code = mL/min/1.73m2 6067226666) SERGIO (test code = SERGIO) Association of [...] tests). Lab Interpretation Abnormal (test code = 56880-7) [facility] WITH [id number] 07:23:45 Test Item Value Reference Range Interpretation Comments WBC (test code = See_Comment [Automated message] 0790-2) The system [employer] generated this result transmitted ref erence range: 4.30 - 1 1.10 10*3/?L. The re ference range was not u sed to interpret this result as normal/abnor mal. RBC (test code = See_Comment [Automated message] 589-8) The system [employer] generated this result transmitted ref erence range: [...] RDW-SD (test code 42.1 fL 39.0-49.9 = 87903-5) RDW-CV (test code 12.6 % 12.0-15.5 = 788-0) PLT (test code = See_Comment [Automated message] 357-3) The system [employer] generated this result transmitted ref erence range: 166 - 35 8 10*3/?L. The re ference range was not u sed to interpret this result as normal/abnor mal. MPV (test code = 10.1 fL 9.5-12.9 28159-2) NRBC/100 WBC (test See_Comment [Automat ed message] code = 1112908879) The syste m which generated this result transmitted ref erence range: 0.0 - 10 .0 /100 WBCs. The refer ence range was not u sed to interpret this result as normal/abnor mal. NRBC x10^3 (test <0.01 See_Comment [Automated message] code = 8982868485) The syste m which generated this result transmitted ref erence range: 10*3/?L. The reference range was not used to interpr et this result as normal/abnormal . GRAN MAT (NEUT) % 67.9 % (test code = 770-8) IMM GRAN % (test 0.30 % code = 4937623048) LYMPH % (test code 19.1 % = 736-9) MONO % (test code 8.4 % = 5905-5) EOS % (test code = 3.9 % 713-8) BASO % (test code 0.4 % = 706-2) GRAN MAT 6.42 10*3/uL 1.88-7.09 x10^3(ANC) (test code = 5126234700) IMM GRAN x10^3 0.03 10*3/uL 0.00-0.06 (test code = 6667532557) LYMPH x10^3 (test 1.81 10*3/uL 1.32-3.29 code = 731-0) MONO x10^3 (test 0.80 10*3/uL 0.33-0.92 code = 742-7) EOS x10^3 (test 0.37 10*3/uL 0.03-0.39 code = 711-2) BASO x10^3 (test 0.04 10*3/uL 0.01-0.07 code = 704-7) [facility] WITH [id number] 07:23:45 Test Item Value Reference Range Interpretation Comments WBC (test code = See_Comment [Automated message] 8890-2) The system [employer] generated this result transmitted ref erence range: 4.30 - 1 1.10 10*3/?L. The re ference range was not u sed to interpret this result as normal/abnor mal. RBC (test code = See_Comment [Automated message] 249-8) The system [employer] generated this result transmitted ref erence range: [...] RDW-SD (test code 42.1 fL 39.0-49.9 = 44115-5) RDW-CV (test code 12.6 % 12.0-15.5 = 788-0) PLT (test code = See_Comment [Automated message] 697-3) The system [employer] generated this result transmitted ref erence range: 166 - 35 8 10*3/?L. The re ference range was not u sed to interpret this result as normal/abnor mal. MPV (test code = 10.1 fL 9.5-12.9 65946-8) NRBC/100 WBC (test See_Comment [Automat ed message] code = 8360847911) The syste [employer] which generated this result transmitted ref erence range: 0.0 - 10 .0 /100 WBCs. The refer ence range was not u sed to interpret this result as normal/abnor mal. NRBC x10^3 (test <0.01 See_Comment [Automated message] code = 0040785866) The syste m which generated this result transmitted ref erence range: 10*3/?L. The reference range was not used to interpr et this result as normal/abnormal . GRAN MAT (NEUT) % 67.9 % (test code = 770-8) IMM GRAN % (test 0.30 % code = 0551301117) LYMPH % (test code 19.1 % = 736-9) MONO % (test code 8.4 % = 5905-5) EOS % (test code = 3.9 % 713-8) BASO % (test code 0.4 % = 706-2) GRAN MAT 6.42 10*3/uL 1.88-7.09 x10^3(ANC) (test code = 9161733457) IMM GRAN x10^3 0.03 10*3/uL 0.00-0.06 (test code = 3596352059) LYMPH x10^3 (test 1.81 10*3/uL 1.32-3.29 code = 731-0) MONO x10^3 (test 0.80 10*3/uL 0.33-0.92 code = 742-7) EOS x10^3 (test 0.37 10*3/uL 0.03-0.39 code = 711-2) BASO x10^3 (test 0.04 10*3/uL 0.01-0.07 code = 704-7) [facility] GLUCOSE (AUTOMATED)2021-03-05 01:43:32 Test Item Value Reference Range Interpretation Comments POCT GLU (test code = 3346346881) 109 mg/dL 70-110 Lab Interpretation (test code = Normal 81043-3) [facility] GLUCOSE (AUTOMATED)2021-03-05 01:43:32 Test Item Value Reference Range Interpretation Comments POCT GLU (test code = 4454596647) 109 mg/dL 70-110 Lab Interpretation (test code = Normal 15989-4) [facility] GLUCOSE (AUTOMATED)2021-03-04 22:19:26 Test Item Value Reference Range Interpretation Comments POCT GLU (test code = 2579158905) 103 mg/dL 70-110 Lab Interpretation (test code = Normal 58866-2) [facility] GLUCOSE (AUTOMATED)2021-03-04 22:19:26 Test Item Value Reference Range Interpretation Comments POCT GLU (test code = 2397765856) 103 mg/dL 70-110 Lab Interpretation (test code = Normal 19053-5) [facility] 2 [id number] 19:00:52 No radiographic evidence of acute cardiopulmonary [...] reviewed this study and agree with the abovereport.[facility] 2 [id number] 19:00:52 No radiographic evidence of acute cardiopulmonary [...] reviewed this study and agree with the abovereport.[facility]villeMRSA / MSSA SCREEN BY PCR, [id number] 17:00:29 Test Item Value Reference Range Interpretation Comments MSSA Screen by PCR, Positive Negative A Nares (test code = 77549-5) MRSA/MSSA Positive? Yes No A (test code = 2940405979) SERGIO (test code = SERGIO) A positive test result does not necessarily indicate the presence of viable organism. Lab Interpretation (test Abnormal code = 79207-4) [facility]ville[facility] / MSSA SCREEN BY PCR, [id number] 17:00:29 Test Item Value Reference Range Interpretation Comments MSSA Screen by PCR, Positive Negative A Nares (test code = 06583-9) MRSA/MSSA Positive? Yes No A (test code = 0460408705) SERGIO (test code = SERGIO) A positive test result does not necessarily indicate the presence of viable organism. Lab Interpretation (test Abnormal code = 15188-6) [facility] GLUCOSE (AUTOMATED)2021-03-04 17:00:19 Test Item Value Reference Range Interpretation Comments POCT GLU (test code = 2479555390) 81 mg/dL 70-110 Lab Interpretation (test code = Normal 15735-6) [facility] GLUCOSE (AUTOMATED)2021-03-04 17:00:19 Test Item Value Reference Range Interpretation Comments POCT GLU (test code = 2294631255) 81 mg/dL 70-110 Lab Interpretation (test code = Normal 84133-3) [facility]villeC-REACTIVE [id number] 13:19:28 Test Item Value Reference Range Interpretation Comments CRP (test code = 1249048285) 10.8 mg/dL <0.8 H Lab Interpretation (test code = Abnormal 74101-8) [facility]villeC-REACT[facility] [id number] 13:19:28 Test Item Value Reference Range Interpretation Comments CRP (test code = 7641074432) 10.8 mg/dL <0.8 H Lab Interpretation (test code = Abnormal 64711-4) [facility] GLUCOSE (AUTOMATED)2021-03-04 12:23:06 Test Item Value Reference Range Interpretation Comments POCT GLU (test code = 5872835511) 81 mg/dL 70-110 Lab Interpretation (test code = Normal 07998-3) [facility] GLUCOSE (AUTOMATED)2021-03-04 12:23:06 Test Item Value Reference Range Interpretation Comments POCT GLU (test code = 1002665380) 81 mg/dL 70-110 Lab Interpretation (test code = Normal 54709-9) [facility] GLUCOSE (AUTOMATED)2021-03-04 04:44:31 Test Item Value Reference Range Interpretation Comments POCT GLU (test code = 7448924690) 72 mg/dL 70-110 Lab Interpretation (test code = Normal 85885-5) [facility] GLUCOSE (AUTOMATED)2021-03-04 04:44:31 Test Item Value Reference Range Interpretation Comments POCT GLU (test code = 5526524036) 72 mg/dL 70-110 Lab Interpretation (test code = Normal 77872-6) [facility] [id number] 04:36:06 Test Item Value Reference Range Interpretation Comments ESR (test code = See_Comment H [Automated message] 7663372449) The system [employer] generated this result transmitted ref erence range: 0 - 20 m m/HR. The reference r maría was not used to interpret this result as normal/abnor mal. Lab Interpretation (test Abnormal code = 53491-0) [facility] [id number] 04:36:06 Test Item Value Reference Range Interpretation Comments ESR (test code = See_Comment H [Automated message] 9303622626) The system [employer] generated this result transmitted ref erence range: 0 - 20 m m/HR. The reference r maría was not used to interpret this result as normal/abnor mal. Lab Interpretation (test Abnormal code = 92662-4) [facility] METABOLIC PANEL (NA, K, CL, CO2, GLUCOSE, BUN, CREATININE, CA)2021-03-04 04:07:28 Test Item Value Reference Range Interpretation Comments NA (test code = 137 mmol/L 135-145 4639151032) K (test code = 3.8 mmol/L 3.5-5.0 8380979523) CL (test code = 104 mmol/L 98-108 1771170768) CO2 TOTAL (test code = 20 mmol/L 23-31 L 5912600681) AGAP (test code = 2-16 6973460358) BUN (test code = 18 mg/dL 7-23 8802444612) GLUCOSE (test code = 56 mg/dL 70-110 L 0155632008) CREATININE (test code = 0.45 mg/dL 0.50-1.04 L 5195355920) CALCIUM (test code = 7.3 mg/dL 8.6-10.6 L 3407090680) eGFR (test code = mL/min/1.73m2 1922965417) SERGIO (test code = SERGIO) Association of [...] tests). Lab Interpretation Abnormal (test code = 38871-2) [facility]2021-[facility] 04:07:28 Test Item Value Reference Range Interpretation Comments MAGNESIUM (test code = 6055348362) 1.3 mg/dL 1.7-2.4 L Lab Interpretation (test code = Abnormal 09654-5) [facility] METABOLIC PANEL (NA, K, CL, CO2, GLUCOSE, BUN, CREATININE, CA)2021-03-04 04:07:28 Test Item Value Reference Range Interpretation Comments NA (test code = 137 mmol/L 135-145 6295287496) K (test code = 3.8 mmol/L 3.5-5.0 4820129633) CL (test code = 104 mmol/L 98-108 8025823319) CO2 TOTAL (test code = 20 mmol/L 23-31 L 8568274544) AGAP (test code = 2-16 0647592419) BUN (test code = 18 mg/dL 7-23 1230392986) GLUCOSE (test code = 56 mg/dL 70-110 L 5104019581) CREATININE (test code = 0.45 mg/dL 0.50-1.04 L 9306748827) CALCIUM (test code = 7.3 mg/dL 8.6-10.6 L 4993702710) eGFR (test code = mL/min/1.73m2 0806784746) SERGIO (test code = SERGIO) Association of [...] tests). Lab Interpretation Abnormal (test code = 73413-9) [facility]2021-06-27 04:07:28 Test Item Value Reference Range Interpretation Comments MAGNESIUM (test code = 3325019411) 1.3 mg/dL 1.7-2.4 L Lab Interpretation (test code = Abnormal 03968-0) [facility]villeGLYCOSYLATED HEMOGLOBIN (A1C)2021-03-04 04:00:00 Test Item Value Reference Range Interpretation Comments HGB A1C (test code = 5.0 % 4.0-5.7 4548-4) SERGIO (test code = SERGIO) Reference RangesNormal: <5.7%Prediabetes: 5.7 - 6.4%Diabetes: > 6.5% Lab Interpretation (test Normal code = 57841-4) [facility]2021-03-04 04:00:00 Test Item Value Reference Range Interpretation Comments HGB A1C (test code = 5.0 % 4.0-5.7 4548-4) SERGIO (test code = SERGIO) Reference RangesNormal: <5.7%Prediabetes: 5.7 - 6.4%Diabetes: > 6.5% Lab Interpretation (test Normal code = 05572-5) [facility] [id number] 03:48:43 Test Item Value Reference Range Interpretation Comments WBC (test code = See_Comment [Automated 6190-2) message] The sy stem which generated this [...] RDW-SD (test code = 42.2 fL 39.0-49.9 79569-6) RDW-CV (test code = 12.4 % 12.0-15.5 788-0) PLT (test code = See_Comment [Automated 777-3) message] The sy stem which generated this result transmitted reference range : 166 - 358 10*3/ ?L. The reference r maría was not used to interpret this result as normal/abnormal . MPV (test code = 10.1 fL 9.5-12.9 51738-0) NRBC/100 WBC (test See_Comment [Automat ed code = 4858046990) message] The system which generated this result transmitted reference range : 0.0 - 10.0 /100 WBCs. The refer ence range was not u sed to interpret th is result as normal/abnormal . NRBC x10^3 (test code <0.01 See_Comment [Auto mated = 5928203612) message] The s ystem which generated this result transmitted reference range : 10*3/?L. The reference range was not used to interpret this result as normal/abnormal . GRAN MAT (NEUT) % 83.9 % (test code = 770-8) IMM GRAN % (test code 0.40 % = 9445223256) LYMPH % (test code = 9.6 % 736-9) MONO % (test code = 5.6 % 5905-5) EOS % (test code = 0.2 % 713-8) BASO % (test code = 0.3 % 706-2) GRAN MAT x10^3(ANC) 8.78 10*3/uL 1.88-7.09 H (test code = 7742127354) IMM GRAN x10^3 (test 0.04 10*3/uL 0.00-0.06 code = 3441161280) LYMPH x10^3 (test code 1.00 10*3/uL 1.32-3.29 L = 731-0) MONO x10^3 (test code 0.59 10*3/uL 0.33-0.92 = 742-7) EOS x10^3 (test code = <0.03 0.03-0.39 L 711-2) BASO x10^3 (test code 0.03 10*3/uL 0.01-0.07 = 704-7) Lab Interpretation Abnormal (test code = 29755-7) [facility] WITH [id number] 03:48:43 Test Item Value Reference Range Interpretation [...] RDW-SD (test code = 42.2 fL 39.0-49.9 16371-1) RDW-CV (test code = 12.4 % 12.0-15.5 788-0) PLT (test code = See_Comment [Automated 777-3) message] The sy stem which generated this result transmitted reference range : 166 - 358 10*3/ ?L. The reference r maría was not used to interpret this result as normal/abnormal . MPV (test code = 10.1 fL 9.5-12.9 12163-8) NRBC/100 WBC (test See_Comment [Automat ed code = 7410695660) message] The system which generated this result transmitted reference range : 0.0 - 10.0 /100 WBCs. The refer ence range was not u sed to interpret th is result as normal/abnormal . NRBC x10^3 (test code <0.01 See_Comment [Auto mated = 3560702042) message] The s ystem which generated this result transmitted reference range : 10*3/?L. The reference range was not used to interpret this result as normal/abnormal . GRAN MAT (NEUT) % 83.9 % (test code = 770-8) IMM GRAN % (test code 0.40 % = 5386653984) LYMPH % (test code = 9.6 % 736-9) MONO % (test code = 5.6 % 5905-5) EOS % (test code = 0.2 % 713-8) BASO % (test code = 0.3 % 706-2) GRAN MAT x10^3(ANC) 8.78 10*3/uL 1.88-7.09 H (test code = 1526831734) IMM GRAN x10^3 (test 0.04 10*3/uL 0.00-0.06 code = 0763329477) LYMPH x10^3 (test code 1.00 10*3/uL 1.32-3.29 L = 731-0) MONO x10^3 (test code 0.59 10*3/uL 0.33-0.92 = 742-7) EOS x10^3 (test code = <0.03 0.03-0.39 L 711-2) BASO x10^3 (test code 0.03 10*3/uL 0.01-0.07 = 704-7) Lab Interpretation Abnormal (test code = 29280-5) [facility] GLUCOSE (AUTOMATED)2021-03-04 02:39:42 Test Item Value Reference Range Interpretation Comments POCT GLU (test code = 3572652641) 68 mg/dL 70-110 L Lab Interpretation (test code = Abnormal 09566-8) [facility] GLUCOSE (AUTOMATED)2021-03-04 02:39:42 Test Item Value Reference Range Interpretation Comments POCT GLU (test code = 0490562516) 68 mg/dL 70-110 L Lab Interpretation (test code = Abnormal 32222-7) [facility] [id number] 19:24:31HISTORY: Replaced G- tube. FINDINGS: Portable AP [...] tube appears to be in good position. [facility], Radiant Results Inft User - 04/04/2020 2:25 PM CDTHISTORY: Replaced G-tube.FINDINGS: Portable [...] Gastrostomy tube appears to be in good position.[facility]AST 2020-04-04 18:17:33CT Abdomen [...] unknown etiology.Whole body bone scan imaging suggested. [facility], Radiant Results Inft User - 04/04/2020 1:18 [...] of unknown etiology.Whole body bone scan imaging suggested.[facility]. METABOLIC PANEL ([id number])2020-04-04 17:13:00 Test Item Value Reference Range Interpretation Comments NA (test code = 136 mmol/L 135-145 4119386248) K (test code = 4.2 mmol/L 3.5-5 9327559945) CL (test code = 102 mmol/L 98-108 4775146105) CO2 TOTAL (test code = 29 mmol/L 23-31 6410278605) AGAP (test code = 2-16 7554869074) BUN (test code = 25 mg/dL 7-23 H 8763633471) GLUCOSE (test code = 99 mg/dL 70-110 5222389683) CREATININE (test code = 0.70 mg/dL 0.5-1.04 1247546556) TOTAL BILI (test code = 0.6 mg/dL 0.1-1.7 8262954731) CALCIUM (test code = 9.7 mg/dL 8.6-10.6 6265665872) T PROTEIN (test code = 7.8 g/dL 6.3-8.2 8633929001) ALBUMIN (test code = 3.9 g/dL 3.5-5 4676195407) ALK PHOS (test code = 77 U/L 34-122 3378551473) ALTv (test code = 10 U/L 5-35 1742-6) AST(SGOT) (test code = 24 U/L 13-40 7700771073) eGFR Calculation mL/min/1.73m2 (Non-) (test code = 1333337003) eGFR Calculation mL/min/1.73m2 () (test code = 3706558952) SERGIO (test code = SERGIO) Association of [...] tests). Lab Interpretation Abnormal (test code = 57742-9) [facility] WITH [id number] 17:06:00 Test Item Value Reference Range Interpretation Comments WBC (test code = See_Comment [Automated message] 6690-2) The system [employer] generated this result transmitted ref erence range: 4.30 - 1 1.10 10*3/?L. The re ference range was not u sed to interpret this result as normal/abnor mal. RBC (test code = See_Comment [Automated message] 139-8) The system [employer] generated this result transmitted ref erence range: [...] RDW-SD (test code 45.1 fL 39-49.9 = 55677-9) RDW-CV (test code 13.4 % 12-15.5 = 788-0) PLT (test code = See_Comment [Automated message] 387-3) The system [employer] generated this result transmitted ref erence range: 166 - 35 8 10*3/?L. The re ference range was not u sed to interpret this result as normal/abnor mal. MPV (test code = 11.1 fL 9.5-12.9 52904-1) NRBC/100 WBC (test See_Comment [Automat ed message] code = 9444067704) The syste [employer] which generated this result transmitted ref erence range: 0.0 - 10 .0 /100 WBCs. The refer ence range was not u sed to interpret this result as normal/abnor mal. NRBC x10^3 (test <0.01 See_Comment [Automated message] code = 0487820451) The syste m which generated this result transmitted ref erence range: 10*3/?L. The reference range was not used to interpr et this result as normal/abnormal . GRAN MAT (NEUT) % 69.1 % (test code = 770-8) IMM GRAN % (test 0.70 % code = 3492921345) LYMPH % (test code 20.0 % = 736-9) MONO % (test code 6.0 % = 5905-5) EOS % (test code = 3.7 % 713-8) BASO % (test code 0.5 % = 706-2) GRAN MAT 5.54 10*3/uL 1.88-7.09 x10^3(ANC) (test code = 0615825312) IMM GRAN x10^3 0.06 10*3/uL 0-0.06 (test code = 6896693828) LYMPH x10^3 (test 1.61 10*3/uL 1.32-3.29 code = 731-0) MONO x10^3 (test 0.48 10*3/uL 0.33-0.92 code = 742-7) EOS x10^3 (test 0.30 10*3/uL 0.03-0.39 code = 711-2) BASO x10^3 (test 0.04 10*3/uL 0.01-0.07 code = 704-7) [facility]"
[2023-06-24 13:12] LABS: Absolute Lymphocytes (CBC) 0.7 K/uL (0.7-4.9); Hematocrit 23.6 % (36.0-45.0); Lymphocytes % 3.7 % (15.3-44.8); MCV 77.9 fL (80-100); MPV 6.2 fL (7.6-11.3); Platelets 724 thou/uL (152-406); RBC Red Blood Cell Count 3.03 M/uL (3.86-4.86)
[2023-06-24 13:30] LABS: AST/SGOT 10 U/L (15-37); Albumin 1.6 g/dL (3.4-5.0); Alkaline Phosphatase 85 U/L (45-117); BUN Blood Urea Nitrogen 22 mg/dL (7-18); Bicarbonate 29 mEq/L (21-32); Bilirubin Total 0.2 mg/dL (0.2-1.0); Glomerular Filtration Rate 100 ml/min (=/>90); Glucose Level 168 mg/dL (74-106); Protein, Total 7.1 g/dL (6.4-8.2); Sodium Level 130 mEq/L (136-145)
[2023-06-24 13:39] LABS: ALT/SGPT < 10 U/L (13-56)
--- NOTE | 2023-06-24 13:47 | RAD REPORT ---
EXAM DESCRIPTION: Giannat Single View06/24/2023 1:26 pm CLINICAL HISTORY: COUGH COMPARISON: Chest Single View dated 03/23/2023; Abdomen 1 View (KUB) dated 04/04/2021; Chest Single Vi ew dated 03/03/2021; Abdomen 1 View (KUB) dated 09/20/2020 TECHNIQUE: Portable AP view of the chest. FINDINGS: New triangular right mid lung confluent airspace opacity. Another soft tissue triangular o pacity extends along the periphery of the upper to mid lung, but appears to be extracorporeal or rela viv to the right arm soft tissue. Left lung is clear. No pneumothorax or effusion. The cardiomediast inal contours are unremarkable. IMPRESSION: Right midlung triangular airspace opacity, concerning for a mass or developing focal pne umonia. Another soft tissue density triangular opacity favored be related to the upper arm or extraco rporeal in location.
[2023-06-24 13:53] LABS: Specific Gravity 1.013 (1.005-1.030); Urine Bilirubin NEGATIVE (Negative); Urine Blood 1+ (Negative); Urine Clarity Extremely Turbid (Clear); Urine Color Yellow (Yellow); Urine Glucose NEGATIVE (Negative); Urine Mucus Slight /HPF (None Seen); Urine Protein 1+ (Negative); Urine RBC 21-50 /HPF (None Seen); Urine Urobilinogen Normal (Normal); Urine WBC Clump Occasional /HPF (None Seen); Urine pH 5.5 (5.0-7.0)
[2023-06-24 13:55] LABS: Urine Bacteria >50 /HPF (<20)
[2023-06-24 14:42] LABS: Protime INR 1.17
[2023-06-24] MEDS ORDERED: CEFTRIAXONE 1000 MG/VIAL ONE (14:54)
[2023-06-24] MEDS ORDERED: NA CHLORIDE 0.9% 250 ML ONE (14:54)
[2023-06-24] MEDS ORDERED: AZITHROMYCIN 500 MG INJ IVPB ONE (14:54)
--- NOTE | 2023-06-24 15:02 | ER ---
Nurse's Notes [facility] Name: Juana Navarro Age: 63 yrs Sex: Female : 1960 Arrival Date: 06/24/2023 Time: 12:40 Bed 7 Private MD: Diagnosis: UTI/ Urinary tract infection, site not specified;Pneumonia, unspecified organism;Altered mental status, unspecified;Hypo-osmolality and hyponatremia Presentation: 06/24 12:44 Chief complaint: Patient states: Diarrhea and lethargy for 2 days. Sacral and hip ll1 wounds getting worse. Coronavirus screen: Vaccine status: Patient reports receiving the 2nd dose of the covid vaccine. Client denies travel out of the [place] in the last 14 days. At this time, the client does not indicate any symptoms associated with coronavirus-19. Coronavirus screen: Client indicates they have traveled out of the [place] in the last 14 days. Ebola Screen: Patient denies travel to an Ebola-affected area in the 21 days before illness onset. Initial Sepsis Screen: Does the patient meet any 2 criteria? RR > 20 per min. Altered Mental Status. HR > 90 bpm. Yes Does the patient have a suspected source of infection? Yes: Skin breakdown/wound. Initial Sepsis Screen: Does the patient meet any 2 criteria?. Initial Sepsis Screen: Does the patient meet any 2 criteria?. Risk Assessment: Do you want to hurt yourself or someone else? Patient reports no desire to harm self or others. Onset of symptoms was June 23, 2023. 12:44 Method Of Arrival: EMS ll1 12:44 Acuity: DAVID 2 ll1 Triage Assessment: 12:46 General: Appears uncomfortable, ill, Behavior is cooperative, appropriate for age. ll1 General:. Pain: Denies pain. EENT:. Neuro: Reports weakness. GI: Parent/caregiver reports the patient having diarrhea. Historical: - Allergies: 12:44 No Known Allergies; ll1 - PMHx: 12:44 bed bound; CVA; Diabetes - NIDDM; G Tube; Hypertension; nonverbal; NPO; NPO; NPO; NPO; ll1 - PSHx: 12:44 Frandy BKA; G tube placement; ll1 - Immunization history:: Adult Immunizations up to date. - Social history:: Smoking status: Patient denies any tobacco usage or history of. Screenin:04 [facility] ED Fall Risk Assessment (Adult) Score/Fall Risk Level 0 - 2 = Low Risk ll1 Oriented to surroundings, Maintained a safe environment, Educated pt \T\ family on fall prevention, incl call for assistance when getting out of bed, Hourly rounding (assess needs \T\ fall precautionary measures) done. Abuse screen: Denies threats or abuse. Nutritional screening: No deficits noted. Tuberculosis screening: No symptoms or risk factors identified. Assessment: 13:11 Reassessment: No changes from previously documented assessment. Patient and/or family ll1 updated on plan of care and expected duration. Pain level reassessed. Brief cleaned of BM. Tolerated well. New diaper applied. Dressing to sacrum and R hip intact. 14:10 Reassessment: No changes from previously documented assessment. Patient and/or family ll1 updated on plan of care and expected duration. Pain level reassessed. 14:45 Reassessment: No changes from previously documented assessment. Patient and/or family ll1 updated on plan of care and expected duration. Pain level reassessed. 16:03 Reassessment: No changes from previously documented assessment. Patient and/or family ll1 updated on plan of care and expected duration. Pain level reassessed. 17:05 Reassessment: Pt incontinent of watery stool, this RN assisted primary RN in cleaning jl7 pt and applying new brief and clean gown. 17:07 Reassessment: No changes from previously documented assessment. Patient and/or family ll1 updated on plan of care and expected duration. Pain level reassessed. cleaned of diarrhea. Moved off L side onto L back. Clean gown applied. Tolerated well. Now has fever. Vital Signs: 12:44 Pulse 101; Resp 18; Temp 98.6; Pulse Ox 100% on R/A; Weight 40.82 kg; Pain 0/10; ll1 12:48 BP 102 / 89; Pulse 95; ld1 13:55 BP 109 / 60; Pulse 86; Pulse Ox 100% on R/A; ll1 14:48 BP 104 / 59; Pulse 92; Pulse Ox 100% ; ll1 16:02 BP 101 / 64; Pulse 84; Resp 17; Pulse Ox 98% on R/A; ll1 17:06 BP 97 / 57; Pulse 84; Resp 18; Temp 100.8; Pulse Ox 100% ; ll1 12:44 Pain Scale: Adult ll1 ED Course: 12:41 Patient arrived in ED. ms3 12:41 Pedro Eugene DO is Attending Physician. ms3 12:44 Chanell Crow, RN is Primary Nurse. ll1 12:44 Arm band placed on Patient placed in an exam room, on a stretcher. ll1 12:46 Triage completed. ll1 13:11 Urinalysis w/ reflexes Sent. ll1 13:11 Initial lab(s) drawn, by me, sent to lab. Straight cath inserted, using sterile ll1 technique, 14 Fr. Specimen obtained. Missed attempt(s): 22 gauge in right forearm. Bleeding controlled, band aid applied, catheter tip intact. 13:19 X-ray completed. Portable x-ray completed in exam room. Patient tolerated procedure mh1 well. 13:20 Urinalysis w/ reflexes Sent. ld1 13:21 CXR XRAY In Process Unspecified. EDMS 14:35 Inserted saline lock: 22 gauge in left forearm, using aseptic technique. Blood ll1 collected. 14:40 Lactate w/ 2H reflex if indic. Sent. jl7 14:40 Blood Culture Adult (2) Sent. jl7 15:01 Jose Miguel Woodson is Hospitalizing Provider. ms3 16:05 Patient has correct armband on for positive identification. Bed in low position. Call 1 light in reach. Client placed on continuous cardiac and pulse oximetry monitoring. NIBP monitoring applied. lightout examiner on. 18:28 No provider procedures requiring assistance completed. Patient admitted, IV remains in ll1 place. 18:29 Provided Education on: n/a. ll Administered Medications: 14:45 Drug: Rocephin IV 1 grams IV at calculated rate once; Given slow IV push per pharmacy ll1 instructions Route: IV; Rate: calculated rate; Site: left forearm; 14:54 Follow up: Response: No adverse reaction; IV Status: Completed infusion; IV Intake: 74nsum4 14:54 Drug: AZITHromycin IVPB 500 mg IVPB once over 1 hrs; (mix in 250 mL NS) Route: IVPB; ll1 Infused Over: 1 hrs; Site: left forearm; 17:08 Follow up: Response: No adverse reaction; IV Status: Completed infusion; IV Intake: ll1 250ml Medication: 16:05 VIS not applicable for this client. ll1 Intake: 14:54 IV: 10ml; Total: 10ml. ll1 17:08 IV: 250ml; Total: 260ml. ll1 Outcome: 15:01 Decision to Hospitalize by Provider. ms3 17:41 Patient left the ED. ll1 18:28 Admitted to Med/surg ll1 18:28 Condition: stable 18:28 Instructed on the need for admit, Signatures: Dispatcher [employer] EDMisa Russo 1 Kandy Beck RN RN jl7 Chanell Crow RN RN ll1 Pedro Eugene DO DO ms3 Zenia Eugene RN RN ld1 Corrections: (The following items were deleted from the chart) 16:04 13:11 Reassessment: No changes from previously documented assessment. Patient and/or ll1 family updated on plan of care and expected duration. Pain level reassessed. ll1
--- NOTE | 2023-06-24 15:02 | EDPHYS ---
Physician Documentation [facility] Name: Juana Navarro Age: 63 yrs Sex: Female : 1960 Arrival Date: 06/24/2023 Time: 12:40 Bed 7 Private MD: ED Physician Pedro Eugene HPI: 06/24 15:02 This 63 yrs old Female presents to ER via EMS with complaints of AMS. ms3 15:02 63-year-old female with past medical history of diabetes, hypertension, nonverbal ms3 presents for altered mental status per patient's family. Patient's family stated to EMS patient had been labs active. Patient has also been noted to have diarrhea for 2 days.. Historical: - Allergies: 12:44 No Known Allergies; ll1 - PMHx: 12:44 bed bound; CVA; Diabetes - NIDDM; G Tube; Hypertension; nonverbal; NPO; NPO; NPO; NPO; ll1 - PSHx: 12:44 Frandy BKA; G tube placement; ll1 - Immunization history:: Adult Immunizations up to date. - Social history:: Smoking status: Patient denies any tobacco usage or history of. ROS: 15:02 Unable to obtain ROS due to altered mental status, ms3 Exam: 15:02 Head/Face: Normocephalic, atraumatic. ms3 15:02 Neck: Trachea midline, no cervical lymphadenopathy. Supple, full range of motion without nuchal rigidity, or vertebral point tenderness. No Meningismus. Chest/axilla: Normal chest wall appearance and motion. Nontender with no deformity. Cardiovascular: Regular rate and rhythm with a normal S1 and S2. No gallops, murmurs, or rubs. Normal PMI, no JVD. No pulse deficits. Respiratory: Lungs have equal breath sounds bilaterally, clear to auscultation and percussion. No rales, rhonchi or wheezes noted. No increased work of breathing, no retractions or nasal flaring. Abdomen/GI: Soft, non-tender, with normal bowel sounds. No distension or tympany. No guarding or rebound. No evidence of tenderness throughout. 15:02 Skin: lesion(s), Deep sacral ulcer with packing in place, black ulceration on right hip, 15:31 ECG was reviewed by the Attending Physician. ms3 Vital Signs: 12:44 Pulse 101; Resp 18; Temp 98.6; Pulse Ox 100% on R/A; Weight 40.82 kg; Pain 0/10; ll1 12:48 BP 102 / 89; Pulse 95; ld1 13:55 BP 109 / 60; Pulse 86; Pulse Ox 100% on R/A; ll1 14:48 BP 104 / 59; Pulse 92; Pulse Ox 100% ; ll1 16:02 BP 101 / 64; Pulse 84; Resp 17; Pulse Ox 98% on R/A; ll1 17:06 BP 97 / 57; Pulse 84; Resp 18; Temp 100.8; Pulse Ox 100% ; ll1 12:44 Pain Scale: Adult ll1 MDM: 12:41 Patient medically screened. ms3 15:13 Differential Diagnosis: electrolyte abnormality, UTI, volume depletion, PNA. Data ms3 reviewed: vital signs, nurses notes, lab test result(s), radiologic studies, and as a result, I will admit patient. Consideration of Admission/Observation Patient was admitted/placed on observation. Management of patient was discussed with the following: Hospitalist: Shelby Carlin NP on behalf of Dr Woodson.. I considered the following discharge prescriptions or medication management in the emergency department Medications were administered in the Emergency Department. See MAR. Independent interpretation of the following test(s) in the Emergency Department X-Ray: My interpretation is CXR images reviewed by me shows RUL PNA.. Historians other than the Patient: EMS: . Counseling: I had a detailed discussion with the patient and/or guardian regarding the historical points, exam findings, and any diagnostic results supporting the discharge/admit diagnosis, lab results, radiology results, the need for further work-up and treatment in the hospital. ED course: Discussed labs, imaging with patient's daughter. Discussed necessity for admission and she understands agrees with plan. All questions were answered.. 06/24 12:42 Order name: CBC with Diff; Complete Time: 13:35 ms3 06/24 12:42 Order name: CMP; Complete Time: 13:53 ms3 06/24 12:42 Order name: Urinalysis w/ reflexes; Complete Time: 14:20 ms3 06/24 13:54 Order name: Blood Culture Adult (2) ms3 06/24 13:54 Order name: Lactate w/ 2H reflex if indic.; Complete Time: 14:59 ms3 06/24 13:54 Order name: Protime (+inr); Complete Time: 14:47 ms3 06/24 13:54 Order name: Ptt, Activated; Complete Time: 14:47 ms3 06/24 13:57 Order name: Urine Culture EDMS 06/24 16:16 Order name: Lactate w/ 2H reflex if indic. EDMS 06/24 16:16 Order name: Basic Metabolic Panel EDMS 06/24 16:16 Order name: Basic Metabolic Panel EDMS 06/24 16:16 Order name: CBC with Automated Diff EDMS 06/24 16:16 Order name: CBC with Automated Diff EDMS 06/24 16:16 Order name: Magnesium EDMS 06/24 16:16 Order name: Magnesium EDMS 06/24 16:16 Order name: Phosphorus EDMS 06/24 16:16 Order name: Phosphorus EDMS 06/24 12:42 Order name: CXR XRAY; Complete Time: 13:53 ms3 06/24 12:42 Order name: EKG; Complete Time: 12:42 ms3 06/24 16:16 Order name: CONS Physician Consult EDMS 06/24 16:16 Order name: CONS Physician Consult EDMS 06/24 16:16 Order name: CONS [facility] Cons EDMS 06/24 16:19 Order name: Dietitian Consult EDMS 06/24 12:42 Order name: Accucheck; Complete Time: 13:20 ms3 06/24 12:42 Order name: Cardiac monitoring; Complete Time: 13:11 ms3 06/24 12:42 Order name: EKG - Nurse/Tech; Complete Time: 13:11 ms3 06/24 12:42 Order name: IV Saline Lock - Large Bore; Complete Time: 12:49 ms3 06/24 12:42 Order name: Labs collected and sent; Complete Time: 12:49 ms3 06/24 12:42 Order name: O2 Per Protocol; Complete Time: 12:45 ms3 06/24 12:42 Order name: O2 Sat Monitoring; Complete Time: 12:45 ms3 06/24 12:42 Order name: Vital Signs; Complete Time: 12:49 ms3 EC:31 Rate is 98 beats/min. Rhythm is regular. QRS [place] is Normal. CO interval is normal. QRS ms3 interval is normal. QT interval is normal. Clinical impression: NSR w/ Non-specific ST/T Changes. Interpreted by me. Reviewed by me. Administered Medications: 14:45 Drug: Rocephin IV 1 grams IV at calculated rate once; Given slow IV push per pharmacy ll1 instructions Route: IV; Rate: calculated rate; Site: left forearm; 14:54 Follow up: Response: No adverse reaction; IV Status: Completed infusion; IV Intake: 40sivm0 14:54 Drug: AZITHromycin IVPB 500 mg IVPB once over 1 hrs; (mix in 250 mL NS) Route: IVPB; ll1 Infused Over: 1 hrs; Site: left forearm; 17:08 Follow up: Response: No adverse reaction; IV Status: Completed infusion; IV Intake: ll1 250ml Disposition: 15:16 Chart complete. ms3 Disposition Summary: 06/24/23 15:01 Hospitalization Ordered Notes: Hospitalization Status: Inpatient Admission ms3 Provider: Jose Miguel Woodson ms3 Location: Telemetry/[facility] (Inpatient) ms3 Condition: Stable ms3 Problem: new ms3 Symptoms: are unchanged ms3 Bed/Room Type: Standard ms3 Room Assignment: 205(06/24/23 16:50) bd Diagnosis - UTI/ Urinary tract infection, site not specified ms3 - Pneumonia, unspecified organism ms3 - Altered mental status, unspecified ms3 - Hypo-osmolality and hyponatremia ms3 Forms: - Medication Reconciliation Form ms3 - SBAR form ms3 - Leadership Thank You Letter ms3 Signatures: Dispatcher [employer] EDMS Angela James Lynsay, RN RN 1 Pedro Eugene DO DO ms3 Corrections: (The following items were deleted from the chart) 16:21 16:16 Urinalysis w/ reflexes ordered. EDMS EDMS 16:50 15:01 ms3 bd
[2023-06-24] MEDS ORDERED: ACETAMINOPHEN 325 MG TABLET PO PRN (16:00)
[2023-06-24] MEDS ORDERED: ACETAMINOPHEN 500 MG TAB PO PRN (16:00)
[2023-06-24] MEDS: INSULIN REGULAR (HUMAN) 100 UNIT/ML SQ SCH ×2 (16:30→21:00)
[2023-06-24 16:33] VITALS: BMI 21.7
[2023-06-24] MEDS: ENOXAPARIN 40 MG/0.4 ML SQ SCH (17:00)
[2023-06-24] MEDS ORDERED: ENOXAPARIN 40 MG/0.4 ML SQ ONE (17:24)
[2023-06-24] MEDS ORDERED: ACETAMINOPHEN 650MG/RECT SUPP PR ONE (17:24)
--- NOTE | 2023-06-24 18:46 | P.HP ---
Patient History Date of Service: 06/24/23 Reason for admission: AMS, UTI, PNA, Ulcer to back History of Present Illness: Juana Navarro 63-year-old female with past medical history of hypertension, CVA causing nonverbal state, G-tube with bolus tube feeds every 4 hours, and IDDM, bilateral lower extremity amputations, and chronic ulcer to back presents to the ED with altered mental status. Juana was found to have a UTI and pneumonia. Due to a chronic ulcer in her back she is actively seeing [facility] in [facility] with Dr. Gallegos. She was being prepared to have a PICC line placed for home IV antibiotics. We will need to obtain records from [facility] infectious disease, consult Dr. Gallegos and Dr. Johnson. Initial vitals blood pressure 102/89, pulse 95, respirations 18, temp 98.6, pulse ox 100% on room air. Significant labs WBC 17, H&H 7.6, platelets 724, serum glucose 168, sodium 130. Of note Patient is nonverbal, she did cry when told she was being admitted. Upper extremities flaccid, Will need decubitus and aspiration precautions. Daughter at bedside who is the primary child care director and good historian. Juana will be admitted to hospitalist service for further treatment of UTI, pneumonia, and chronic nonhealing healing ulcer on her back. Allergies No Known Allergies Allergy (Verified 07/13/19 19:58) Home Medications: Glucerna 1.5 Vikas 237 ml FT QID #90 bot 02/10/18 Atorvastatin Calcium [Lipitor*] 20 mg FT BEDTIME #30 tab 11/14/18 traMADol HCL [Ultram*] 50 mg FT TID PRN #15 tab 11/14/18 Hydralazine [Apresoline*] 25 mg FT BID 07/14/19 Metformin HCl 500 mg FT BID 07/14/19 lisinopriL [Prinivil*] 40 mg FT DAILY 07/14/19 - Past Medical/Surgical History Has patient received pneumonia vaccine in the past: Yes Diabetic: Yes -: Hx CVA with residual aphasia -: HTN -: Hyperlipidemia -: Neuropathy -: DM -: History of dysphagia now with PEG tube -: Hysterectomy -: PEG tube placement -: Amputation of right foot -: Amputation of first digit left toe -: bi BKA Psychosocial/ Personal History: Patient lives at home. She has several children. She is . - Family History Mother -: Stroke Father -: Heart disease - Social History Smoking Status: Former smoker Alcohol use: No CD- Drugs: No Caffeine use: No Review of Systems Non verbal Physical Examination - Vital Signs Temperature: 100.8 F Blood Pressure: 98/54 Pulse: 80 Respirations: 18 Pulse Ox (%): 100 - Physical Exam General: Cachectic, Other (nonverbal) HEENT: Atraumatic, Normocephalic, PERRLA, Abnormal EOM Neck: Supple, 2+ carotid pulse no bruit, JVD not distended Respiratory: Clear to auscultation bilaterally Cardiovascular: No edema, Normal pulses, Regular rate/rhythm, Normal S1 S2 Capillary refill: <2 Seconds Gastrointestinal: Hypoactive, Soft and benign Musculoskeletal: No clubbing, Contractures (neck and spine position) Integumentary: Skin breakdown (sacral) Neurological: Other (nonverbal, previous CVA), Abnormal strength - Studies Laboratory Data (last 24 hrs) 06/24/23 06/24/23 06/24/23 14:20 12:55 12:55 WBC 17.90 H Hgb 7.6 L Hct 23.6 L Plt Count 724 H PT 12.9 H INR 1.17 APTT 29.6 Sodium 130 L Potassium 4.0 BUN 22 H Creatinine 0.62 Glucose 168 H Total Bilirubin 0.2 AST 10 L ALT < 10 L Alkaline Phosphatase 85 Assessment and Plan - Plan Assessment and Plan AMS 2/2 UTI and PNA -WBC 17, lactic 1.9 -UA positive, culture pending -CXR Minimal right basilar atelectasis -Zithromycin and rocephin in ED, will continue Ulcer to back -wound care consult -consult Dr. Gallegos, he has been managing at wound care -Will need PICC line for IV antibiotics when blood cultures are cleared -blood cultures pending -Consult Dr. Johnson -obtain records from [facility] -Cleocin for now G tube -restart home Tube feed schedule: Glucerna 2.5 Q4h -consult dietary Thrombocytosis -Platelets 724 -monitor in Am labs Hyponatremia -gentle IVF Anemia -H/H 7.6/23 -monitor in AM labs -transfuse hgb <7 h/o NIDDM -accucheck with SSI h/o CVA, nonverbal -aspiration precautions -decubitus precuations -PT consulted h/o bilateral lower extremity amputation -decubitus precuations -supportive care Full code DVT ppx lovenox LOS 2-3 days Discharge Plan: Home Plan to discharge in: 72 Hours - Advance Directives Does patient have a Living Will: No Does patient have a Durable POA for Healthcare: No Time Spent Managing Pts Care (In Minutes): 55
[2023-06-24] MEDS: CLINDAMYCIN 600MG/D5W 50 ML IV SCH (20:23)
[2023-06-24] MEDS ORDERED: NA CHLORIDE 0.9% 500 ML IV ONE (21:12)
[2023-06-24] MEDS: GLUCERNA 1.5 CAL 1,000 ML BOT FT SCH (22:30)
[2023-06-25] MEDS: GLUCERNA 1.5 CAL 1,000 ML BOT FT SCH ×7 (01:00→20:52)
[2023-06-25] MEDS: CLINDAMYCIN 600MG/D5W 50 ML IV SCH ×2 (01:07→10:24)
[2023-06-25 03:47] LABS: Absolute Lymphocytes (CBC) 1.1 K/uL (0.7-4.9); Lymphocytes % 8.2 % (15.3-44.8); MCV 77.6 fL (80-100); MPV 6.5 fL (7.6-11.3); Magnesium 1.9 mg/dL (1.6-2.4); Phosphorus 2.7 mg/dL (2.5-4.9); Platelets 596 thou/uL (152-406); Potassium 4.1 mEq/L (3.5-5.1); RBC Red Blood Cell Count 2.57 M/uL (3.86-4.86)
[2023-06-25] MEDS: INSULIN REGULAR (HUMAN) 100 UNIT/ML SQ SCH ×4 (07:30→20:50)
--- NOTE | 2023-06-25 08:05 | P.PN ---
Subjective Date of Service: 06/25/23 Chief Complaint: AMS, UTI, PNA, Ulcer to back Juana Navarro 63-year-old female with past medical history of hypertension, CVA causing nonverbal state, G-tube with bolus tube feeds every 4 hours, and IDDM, bilateral lower extremity amputations, and chronic ulcer to back presents to the ED with altered mental status. Juana was found to have a UTI and pneumonia. Due to a chronic ulcer in her back she is actively seeing [facility] in [facility] with Dr. Gallegos. She was being prepared to have a PICC line placed for home IV antibiotics. We will need to obtain records from [facility] infectious disease, consult Dr. Gallegos and Dr. Johnson. Initial vitals blood pressure 102/89, pulse 95, respirations 18, temp 98.6, pulse ox 100% on room air. Significant labs WBC 17, H&H 7.6, platelets 724, serum glucose 168, sodium 130. Of note Patient is nonverbal, she did cry when told she was being admitted. Upper extremities flaccid, Will need decubitus and aspiration precautions. Daughter at bedside who is the primary patient care coordinator and good historian. Juana will be admitted to hospitalist service for further treatment of UTI, pneumonia, and chronic nonhealing healing ulcer on her back. 06/25: Juana is able to make eye contact this morning. She appears to be more comfortable. Wound care and nursing staff working on her wounds. Physical Examination - Vital Signs Temperature: 97.2 F Blood Pressure: 95/52 Pulse: 81 Respirations: 18 Pulse Ox (%): 97 - Studies Laboratory Data (last 24 hrs) 06/24/23 06/24/23 06/24/23 14:20 12:55 12:55 WBC 17.90 H Hgb 7.6 L Hct 23.6 L Plt Count 724 H PT 12.9 H INR 1.17 APTT 29.6 Sodium 130 L Potassium 4.0 BUN 22 H Creatinine 0.62 Glucose 168 H Total Bilirubin 0.2 AST 10 L ALT < 10 L Alkaline Phosphatase 85 Assessment And Plan - Plan Physical Exam General: Cachectic, Other (nonverbal) HEENT: Atraumatic, Normocephalic, PERRLA, Abnormal EOM Neck: Supple, 2+ carotid pulse no bruit, JVD not distended Respiratory: Clear to auscultation bilaterally Cardiovascular: No edema, Normal pulses, Regular rate/rhythm, Normal S1 S2 Capillary refill: <2 Seconds Gastrointestinal: Hypoactive, Soft and benign Musculoskeletal: No clubbing, Contractures (neck and spine position) Integumentary: Skin breakdown (sacral) Neurological: Other (nonverbal, previous CVA), Abnormal strength Assessment and Plan AMS 2/2 UTI and PNA -WBC 17, lactic 1.9 -UA positive, culture pending -CXR Minimal right basilar atelectasis -Zithromycin and rocephin in ED, will continue Ulcer to back -wound care consult -consult Dr. Gallegos, he has been managing at wound care -Will need PICC line for IV antibiotics when blood cultures are cleared -blood cultures pending -Consult Dr. Johnson -obtain records from [facility] -Cleocin stopped, started vancomycin G tube -restart home Tube feed schedule: Glucerna 2.5 Q4h -consult dietary Thrombocytosis -Platelets 724 -monitor in Am labs Hyponatremia -gentle IVF Anemia -H/H 6.8/20, s/p transfusion H/H7.9/23.4 -one unit PRBC -monitor in AM labs -transfuse hgb <7 h/o NIDDM -accucheck with SSI h/o CVA, nonverbal -aspiration precautions -decubitus precuations -PT consulted h/o bilateral lower extremity amputation -decubitus precuations -supportive care Full code DVT ppx lovenox LOS 2-3 days Time Spent Managing PTS Care (In Minutes): 35
--- NOTE | 2023-06-25 08:45 | P.CNS ---
Date of Consult: 06/25/23 Reason for Consult: sacral wound infection Chief Complaint: AMS, UTI, PNA, Ulcer to back History of Present Illness: Patient is a 63-year-old female with a past medical history of hypertension, CVA, G-tube, diabetes mellitus, bilateral lower extremity amputations, chronic sacral ulcer who presented to the ED with altered mental status. She was found to have a UTI and pneumonia. Records to be obtained from [facility] in [facility]. Infectious disease was consulted in preparation of having a PICC line for home IV antibiotics. Allergies No Known Allergies Allergy (Verified 07/13/19 19:58) Home medications list reviewed: Yes Home Medications: Glucerna 1.5 Vikas 237 ml FT QID #90 bot 02/10/18 Atorvastatin Calcium [Lipitor*] 20 mg FT BEDTIME #30 tab 11/14/18 traMADol HCL [Ultram*] 50 mg FT TID PRN #15 tab 11/14/18 Hydralazine [Apresoline*] 25 mg FT BID 07/14/19 Metformin HCl 500 mg FT BID 07/14/19 lisinopriL [Prinivil*] 40 mg FT DAILY 07/14/19 - Past Medical/Surgical History Diabetic: Yes -: Hx CVA with residual aphasia -: HTN -: Hyperlipidemia -: Neuropathy -: DM -: History of dysphagia now with PEG tube -: Hysterectomy -: PEG tube placement -: Amputation of right foot -: Amputation of first digit left toe -: bi BKA Psychosocial/ Personal History: Patient lives at home. She has several children. She is . - Family History Mother Medical History: Stroke Father Medical History: Heart disease - Social History Smoking Status: Unknown if ever smoked Alcohol use: No CD- Drugs: No Caffeine use: No Review of Systems General: Weakness Respiratory: Unremarkable Cardiovascular: Unremarkable Gastrointestinal: Unremarkable Genitourinary: Unremarkable Musculoskeletal: Unremarkable Integumentary: As per HPI Neurological: As per HPI (patient able to nod head yes/no ) Physical Examination Temp Pulse Resp BP Pulse Ox 97.2 F 81 18 95/52 L 97 06/25/23 08:05 06/25/23 08:05 06/25/23 08:05 06/25/23 08:05 06/25/23 08:05 General: In no apparent distress, Oriented x1, Cachectic, Other (patient nonverbal following CVA; nods head yes/no to answer questions) HEENT: Atraumatic, Normocephalic Respiratory: Clear to auscultation bilaterally, Normal air movement, Other (on room air) Cardiovascular: Regular rate/rhythm Gastrointestinal: Normal bowel sounds, Other (PEG tube) Musculoskeletal: Contractures Integumentary: Pressure ulcer (sacrum stage 4 with foul odor; right hip unstageable) Laboratory Data (last 24 hrs) 06/24/23 06/24/23 06/24/23 14:20 12:55 12:55 WBC 17.90 H Hgb 7.6 L Hct 23.6 L Plt Count 724 H PT 12.9 H INR 1.17 APTT 29.6 Sodium 130 L Potassium 4.0 BUN 22 H Creatinine 0.62 Glucose 168 H Total Bilirubin 0.2 AST 10 L ALT < 10 L Alkaline Phosphatase 85 Microbiology data -Reviewed Imagings Data: Reviewed Conclusions/Impression: Problem List Urinary Tract Infection Infection of Sacral Pressure Ulcer stage 4 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 1+ nitrite; LE 500; RBC 21-50; WBC >50; WBC clumps; Bacteria >50 - Urine culture 06/24: Pending - History of multi-drug resistant pseudomonas aeruginosa UTI. - Started on Meropenem and Vancomycin 06/25 Sacral Pressure Ulcer Stage 4 with Infection - Per H&P, patient has been seeing [facility] for wound care as outpatient; she was to have PICC line placef for IV antibiotics. However patient became ill before PICC line was placed and presented to the ED. - Pending records from the facility - General surgery also consulted - Sacral wound with foul odor Blood cultures 06/24: Pending Leukocytosis (WBC 13.5) Afebrile Recommendations - Due to history of MDR and ESBL infections, started patient on Meropenem and Vancomycin IV 06/25. - Continue meropenem and vancomycin for now. follow up with urine and blood culture results. - Follow up with records from outpatient wound care - Pressure Injuries: Pressure offloading measures. Turn patient Q2H, wedge pillows, low air-loss mattress. - Monitor WBC and fever trends. Case discussed with Shan Desai
[2023-06-25] MEDS ORDERED: AZITHROMYCIN IV 500 MG in NA CHLORIDE 0.9% 250 ML IVPB SCH (09:00)
[2023-06-25] MEDS ORDERED: CEFTRIAXONE 1,000 MG in NA CHLORIDE 0.9% 50 ML IVPB SCH (09:00)
[2023-06-25] MEDS: ENOXAPARIN 40 MG/0.4 ML SQ SCH (09:11)
[2023-06-25] MEDS ORDERED: VANCOMYCIN 1 GM in NA CHLORIDE 0.9% 250 ML IVPB ONE (11:30)
--- NOTE | 2023-06-25 12:27 | EKG ---
Test Date: 2023-06-24 Test Time: 13:08:01 Die Assembler: Dianne FELICIANO MEASUREMENT RESULTS: Intervals: Rate: 98 CA: 150 QRSD: 60 QT: 326 QTc: 416 [place]: P: 69 CA: 150 QRS: 20 T: 73 INTERPRETIVE STATEMENTS: Normal sinus rhythm Low voltage QRS Septal infarct, age undetermined Abnormal ECG Compared to ECG 03/23/2023 19:39:12 Low QRS voltage now present Myocardial infarct finding now present Left-axis deviation no longer present Electronically Signed On 06-25-23 12:24:41 CDT by Fan Kramer
[2023-06-25] MEDS: Meropenem 1,000 MG in NA CHLORIDE 0.9% 100 ML IV SCH ×2 (13:22→20:52)
[2023-06-25 18:57] LABS: Hematocrit 23.4 % (36.0-45.0)
[2023-06-25] MEDS ORDERED: VANCOMYCIN 750 MG in NA CHLORIDE 0.9% 150 ML IVPB SCH (21:00)
[2023-06-26 01:52] VITALS: O2SAT 97
[2023-06-26] MEDS ORDERED: VANCOMYCIN 750 MG in NA CHLORIDE 0.9% 150 ML IVPB SCH (02:00)
[2023-06-26 03:58] LABS: Absolute Lymphocytes (CBC) 1.1 K/uL (0.7-4.9); Hematocrit 24.8 % (36.0-45.0); MCV 78.9 fL (80-100); MPV 6.6 fL (7.6-11.3); Platelets 473 thou/uL (152-406); RBC Red Blood Cell Count 3.14 M/uL (3.86-4.86)
[2023-06-26] MEDS: Meropenem 1,000 MG in NA CHLORIDE 0.9% 100 ML IV SCH ×3 (05:07→22:41)
[2023-06-26] MEDS: INSULIN REGULAR (HUMAN) 100 UNIT/ML SQ SCH ×4 (07:30→21:00)
--- NOTE | 2023-06-26 07:50 | P.PN ---
Date of Service: 06/26/23 Chief Complaint: AMS, UTI, PNA, Ulcer to back Subjective: Patient seen and examined at bedside. She is in no apparent distress at this time, breathing comfortably on room air. She denies any new or worsening complaints at this time. Nods head yes/no. Physical Examination Temp Pulse Resp BP Pulse Ox 97.1 F 78 20 102/45 L 97 06/26/23 04:00 06/26/23 04:00 06/26/23 04:00 06/26/23 04:00 06/26/23 04:00 General: In no apparent distress. Cachectic. Nonverbal, nods head yes/no to answer questions HEENT: Atraumatic, Normocephalic Respiratory: Clear to auscultation bilaterally, Normal air movement. On room air. Cardiovascular: Regular rate/rhythm Gastrointestinal: Normal bowel sounds. PEG tube. Musculoskeletal: Contractures Integumentary: Pressure ulcer sacrum stage 4 with foul odor. 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 1+ nitrite; LE 500; RBC 21-50; WBC >50; WBC clumps; Bacteria >50 - Urine culture 06/24: Pending - History of multi-drug resistant pseudomonas aeruginosa UTI. - Started on Meropenem and Vancomycin 06/25 Sacral Pressure Ulcer Stage 4 with Infection - Per H&P, patient has been seeing [facility] for wound care as outpatient; she was to have PICC line placef for IV antibiotics. However patient became ill before PICC line was placed and presented to the ED. See elementary school social worker note for further details. - Pending records from the facility - General surgery also consulted - Sacral wound with foul odor Blood cultures 06/24: no growth to date Leukocytosis (WBC 13.2) Afebrile Recommendations - Due to history of MDR and ESBL infections, started patient on Meropenem and Vancomycin IV 06/25. - Continue meropenem and vancomycin for now. follow up with urine culture results. Patient is in stable condition. We still do not have the patient records from the wound care clinic which she was supposed to have PICC line and IV antibiotics setup and home health. - Follow up with records from outpatient wound care. nursing orders placed to obtain records. - Pressure Injuries: Pressure offloading measures. Turn patient Q2H, wedge pillows, low air-loss mattress. - Monitor WBC and fever trends. Case discussed with Shan Desai
[2023-06-26] MEDS: VANCOMYCIN 750 MG in NA CHLORIDE 0.9% 150 ML IVPB SCH ×2 (09:57→22:42)
[2023-06-26] MEDS: ENOXAPARIN 40 MG/0.4 ML SQ SCH (09:58)
[2023-06-26] MEDS: GLUCERNA 1.5 CAL 1,000 ML BOT FT SCH ×4 (10:01→22:42)
--- NOTE | 2023-06-26 16:40 | P.PN ---
Subjective Date of Service: 06/26/23 Chief Complaint: AMS, UTI, PNA, Ulcer to back Subjective: No new changes Juana Navarro 63-year-old female with past medical history of hypertension, CVA causing nonverbal state, G-tube with bolus tube feeds every 4 hours, and IDDM, bilateral lower extremity amputations, and chronic ulcer to back presents to the ED with altered mental status. Juana was found to have a UTI and pneumonia. Due to a chronic ulcer in her back she is actively seeing [facility] in [facility] with Dr. Gallegos. She was being prepared to have a PICC line placed for home IV antibiotics. We will need to obtain records from [facility] infectious disease, consult Dr. Gallegos and Dr. Johnson. Initial vitals blood pressure 102/89, pulse 95, respirations 18, temp 98.6, pulse ox 100% on room air. Significant labs WBC 17, H&H 7.6, platelets 724, serum glucose 168, sodium 130. Of note Patient is nonverbal, she did cry when told she was being admitted. Upper extremities flaccid, Will need decubitus and aspiration precautions. Daughter at bedside who is the primary ocular care technician and good historian. Juana will be admitted to hospitalist service for further treatment of UTI, pneumonia, and chronic nonhealing healing ulcer on her back. 06/25: Juana is able to make eye contact this morning. She appears to be more comfortable. Wound care and nursing staff working on her wounds. 06/26: Juana appears more comfortable today than compared to admission. Breath sounds clear bilaterally, on RA, She nods to questions. Pillows providing protection to extremities. Tolerating tube feeds. Plan to place a PICC line for home IV antibiotics per [facility]. Will discharge home with daughter coordinated when IV antibiotics are delivered to the house. Review of Systems 10-point ROS is otherwise unremarkable Physical Examination - Vital Signs Temperature: 97.0 F Blood Pressure: 119/58 Pulse: 85 Respirations: 16 Pulse Ox (%): 98 Assessment And Plan - Plan Physical Exam General: Cachectic, Other (nonverbal) HEENT: Atraumatic, Normocephalic, PERRLA, Abnormal EOM Neck: Supple, 2+ carotid pulse no bruit, JVD not distended Respiratory: Clear to auscultation bilaterally Cardiovascular: No edema, Normal pulses, Regular rate/rhythm, Normal S1 S2 Capillary refill: <2 Seconds Gastrointestinal: Hypoactive, Soft and benign Musculoskeletal: No clubbing, Contractures (neck and spine position) Integumentary: Skin breakdown (sacral) Neurological: Other (nonverbal, previous CVA), Abnormal strength Assessment and Plan AMS 2/2 UTI and PNA -WBC 17, lactic 1.9 -UA positive, culture pending -CXR Minimal right basilar atelectasis -Zithromycin and rocephin in ED, will continue Sacral pressure ulcer stage 4 (correction from "ulcer on back") Osteomylitis -wound care consult -consult Dr. Gallegos, he has been managing at wound care -PICC line ordered for home IV daptomycin -blood cultures pending -Consult Dr. Johnson -obtain records from [facility] -Cleocin stopped, started vancomycin G tube -restart home Tube feed schedule: Glucerna 2.5 Q4h -consult dietary Thrombocytosis -Platelets 473 -monitor in Am labs Hyponatremia -gentle IVF Anemia -H/H 8.1/24.8 -one unit PRBC (06/25) -monitor in AM labs -transfuse hgb <7 h/o NIDDM -accucheck with SSI h/o CVA, nonverbal -aspiration precautions -decubitus precuations -PT consulted h/o bilateral lower extremity amputation -decubitus precuations -supportive care Full code DVT ppx lovenox LOS 1 day Discharge Plan: Home Plan to discharge in: 24 Hours Time Spent Managing PTS Care (In Minutes): 35
--- NOTE | 2023-06-26 17:46 | P.CNS ---
Date of Consult: 06/25/23 Chief Complaint: Sacral pressure ulcer stage 4 Allergies No Known Allergies Allergy (Verified 07/13/19 19:58) Home Medications: Glucerna 1.5 Vikas 237 ml FT QID #90 bot 02/10/18 Atorvastatin Calcium [Lipitor*] 20 mg FT BEDTIME #30 tab 11/14/18 traMADol HCL [Ultram*] 50 mg FT TID PRN #15 tab 11/14/18 Hydralazine [Apresoline*] 25 mg FT BID 07/14/19 Metformin HCl 500 mg FT BID 07/14/19 lisinopriL [Prinivil*] 40 mg FT DAILY 07/14/19 - Past Medical/Surgical History Diabetic: Yes -: Hx CVA with residual aphasia -: HTN -: Hyperlipidemia -: Neuropathy -: DM -: History of dysphagia now with PEG tube -: Hysterectomy -: PEG tube placement -: Amputation of right foot -: Amputation of first digit left toe -: bi BKA Psychosocial/ Personal History: Patient lives at home. She has several children. She is . - Family History Mother Medical History: Stroke Father Medical History: Heart disease - Social History Smoking Status: Unknown if ever smoked Alcohol use: No CD- Drugs: No Caffeine use: No Review of Systems is unable to be obtained Physical Examination Temp Pulse Resp BP Pulse Ox 97.0 F 85 16 119/58 L 98 06/26/23 16:53 06/26/23 16:53 06/26/23 16:53 06/26/23 16:53 06/26/23 16:53 General: Alert, In no apparent distress, Cooperative HEENT: Normocephalic Neck: Supple Respiratory: Normal air movement Gastrointestinal: Soft and benign Integumentary: Pressure ulcer (stage 4 sacrum approx [id number], bone close to margins, cant r/o osteo) Conclusions/Impression: I disxussed patient with primary, ID consult. THe info we have form her its extremely limited. Apparently theres some orders for PICC line and IV abx and based on wound findings it give impression that osteo hs been already found. We are tryin to gather info to determine next steps that may include wound VAC. In meantime, wet to dry and off loading may be the way to go.
--- NOTE | 2023-06-26 18:19 | RAD REPORT ---
[facility] CLINICAL HISTORY: PICC line insertion (left upper arm) COMPARISON: Chest Single View dated 06/24/2023; Chest Single View dated 03/23/2023; Abdomen 1 View (K UB) dated 04/04/2021; Chest Single View dated 03/03/2021 TECHNIQUE: Portable AP view of the chest. FINDINGS: Left arm PICC has been placed. Its distal segment does demonstrate the loop, probably joel g the proximal SVC, and is directed superiorly and somewhat to the left, probably along the left inno minate vein. Consider repositioning of the catheter. Persistent right midlung opacity. Patient rotation somewhat limits evaluation. No pneumothorax or eff usion. The cardiomediastinal contours are unremarkable. IMPRESSION: Malpositioned left arm PICC with the tip directed superiorly and somewhat to the left pr obably along the left innominate vein. Consider repositioning the catheter. Persistent right mid lung opacity concerning for pneumonia.
[2023-06-26] MEDS: Mupirocin NASAL 2 APPL/1 GM TUBE NAS SCH (22:41)
[2023-06-27] MEDS: Meropenem 1,000 MG in NA CHLORIDE 0.9% 100 ML IV SCH ×3 (04:11→21:05)
[2023-06-27] MEDS: INSULIN REGULAR (HUMAN) 100 UNIT/ML SQ SCH ×3 (07:30→16:30)
--- NOTE | 2023-06-27 08:10 | P.PN ---
Date of Service: 06/27/23 Chief Complaint: AMS, UTI, PNA, Ulcer to back Subjective: Patient seen and examined at bedside. No acute events reported overnight. Pending PICC line placement. Patient to be discharged home with home health and started on IV antibiotics prescribed by the [facility] MD as outpatient for osteomyelitis. Physical Examination Temp Pulse Resp BP Pulse Ox 97.9 F 78 18 95/86 96 06/27/23 04:00 06/27/23 04:00 06/27/23 04:00 06/27/23 04:00 06/27/23 04:00 General: In no apparent distress. Cachectic. Nonverbal, nods head yes/no to answer questions HEENT: Atraumatic, Normocephalic Respiratory: Clear to auscultation bilaterally, Normal air movement. On room air. Cardiovascular: Regular rate/rhythm Gastrointestinal: Normal bowel sounds. PEG tube. Musculoskeletal: Contractures Integumentary: Pressure ulcer sacrum stage 4 with foul odor. 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 1+ nitrite; LE 500; RBC 21-50; WBC >50; WBC clumps; Bacteria >50 - History of multi-drug resistant pseudomonas aeruginosa UTI. - Urine culture 06/24: 4+ beta hemolytic strep group F - Started on Meropenem and Vancomycin 06/25 Sacral Pressure Ulcer Stage 4 Osteomyelitis - Patient has been seeing [facility] for wound care as outpatient. She was to have PICC line placed and started on IV antibiotic as outpatient. Blood cultures 06/24: no growth to date Leukocytosis (WBC 13.2) Afebrile Recommendations - Due to history of MDR and ESBL infections and concern for osteomyelitis, started patient on Meropenem and Vancomycin IV 06/25. - Patient is clinically stable. pending PICC line placement and discharge home on IV antibiotic per outside MD who she sees for wound care/infection. - Pressure Injuries: Pressure offloading measures. Turn patient Q2H, wedge pillows, low air-loss mattress. - Monitor WBC and fever trends. Case discussed with Shan Desai
[2023-06-27] MEDS: ENOXAPARIN 40 MG/0.4 ML SQ SCH (08:29)
[2023-06-27] MEDS: Mupirocin NASAL 2 APPL/1 GM TUBE NAS SCH ×2 (08:29→21:04)
[2023-06-27] MEDS: GLUCERNA 1.5 CAL 1,000 ML BOT FT SCH ×4 (08:30→21:00)
--- NOTE | 2023-06-27 13:23 | RAD REPORT ---
EXAM DESCRIPTION: LEWISChest Single View06/27/2023 12:57 pm CLINICAL HISTORY: PICC line insertion (left upper arm) COMPARISON: Chest Single View dated 06/26/2023; Chest Single View dated 06/24/2023; Chest Single Vie w dated 03/23/2023; Abdomen 1 View (KUB) dated 04/04/2021 TECHNIQUE: Portable AP view of the chest. FINDINGS: Left arm PICC has been repositioned, it now loops along the proximal left innominate vein, and its distal aspect is directed cranially along the left internal jugular vein. Right mid lung pat tara opacity is stable. No pneumothorax or effusion. The cardiomediastinal contours are unremarkable. IMPRESSION: Abnormally positioned left arm PICC. Consider repositioning the catheter. Stable right m id lung airspace opacity, raise concern for pneumonia.
--- NOTE | 2023-06-27 16:42 | PN ---
Date of Progress Note: 06/27/2023 Reason For Service: Sacral pressure ulcer with osteomyelitis. Patient is doing well. There is an a ttempt to have a PICC line to do IV antibiotics as an outpatient. Sacral wound is intact. The grand son is at the bedside. We explained to them ways and opportunities for improvement on the offloading . He stated that his family is already getting an air mattress to help with offloading and we went t o the different ways how to once again trying to diminish pressure ulcers and he seemed to understand . He is willing to cooperate and help his grandma. Nutrition also is very important. From the surg ical standpoint, we will continue the same dressing changes. Eventually, we will like to use a wound VAC. Once again, she is going to be under other Wound Care. I know they will try to pick the best for her whenever they see her. BERTO/RICHI Voice ID: [id number] Report ID: [id number]
--- NOTE | 2023-06-27 16:59 | P.PN ---
Subjective Date of Service: 06/27/23 Chief Complaint: Sacral pressure ulcer stage 4 Juana Navarro 63-year-old female with past medical history of hypertension, CVA causing nonverbal state, G-tube with bolus tube feeds every 4 hours, and IDDM, bilateral lower extremity amputations, and chronic ulcer to back presents to the ED with altered mental status. Juana was found to have a UTI and pneumonia. Due to a chronic ulcer in her back she is actively seeing [facility] in [facility] with Dr. Gallegos. She was being prepared to have a PICC line placed for home IV antibiotics. We will need to obtain records from [facility] infectious [facility], consult Dr. Gallegos and Dr. Johnson. Initial vitals blood pressure 102/89, pulse 95, respirations 18, temp 98.6, pulse ox 100% on room air. Significant labs WBC 17, H&H 7.6, platelets 724, serum glucose 168, sodium 130. Of note Patient is nonverbal, she did cry when told she was being admitted. Upper extremities flaccid, Will need decubitus and aspiration precautions. Daughter at bedside who is the primary respiratory care instructor and good historian. Juana will be admitted to hospitalist service for further treatment of UTI, pneumonia, and chronic nonhealing healing ulcer on her back. 06/25: Juana is able to make eye contact this morning. She appears to be more comfortable. Wound care and nursing staff working on her wounds. 06/26: Juana appears more comfortable today than compared to admission. Breath sounds clear bilaterally, on RA, She nods to questions. Pillows providing protection to extremities. Tolerating tube feeds. Plan to place a PICC line for home IV antibiotics per [facility]. Will discharge home with daughter coordinated when IV antibiotics are delivered to the house. 06/27: Juana appears comfortable, she nods her head in understanding. Currently having trouble placing the PICC line in correct position. Likely will need IR to place the line and may need to go to [facility] for that procedure. Will start Daptomycin today. Physical Examination - Vital Signs Temperature: 97.5 F Blood Pressure: 133/65 Pulse: 82 Respirations: 18 Pulse Ox (%): 98 Assessment And Plan - Plan Physical Exam General: Cachectic, Other (nonverbal) HEENT: Atraumatic, Normocephalic, PERRLA, Abnormal EOM Neck: Supple, 2+ carotid pulse no bruit, JVD not distended Respiratory: Clear to auscultation bilaterally Cardiovascular: No edema, Normal pulses, Regular rate/rhythm, Normal S1 S2 Capillary refill: <2 Seconds Gastrointestinal: Hypoactive, Soft and benign Musculoskeletal: No clubbing, Contractures (neck and spine position) Integumentary: Skin breakdown (sacral) Neurological: Other (nonverbal, previous CVA), Abnormal strength Assessment and Plan AMS 2/2 UTI and PNA -WBC 17, lactic 1.9 -UA positive, culture gram negative rods -CXR Minimal right basilar atelectasis -Continue merrem Sacral pressure ulcer stage 4 (correction from "ulcer on back") Osteomylitis -wound care consult -consult Dr. Gallegos, he has been managing at wound care -PICC line ordered for home IV daptomycin -blood cultures pending -Consult Dr. Johnson -obtain records from [facility] -stopped vancomycin, started daptomycin G tube -restart home Tube feed schedule: Glucerna 2.5 Q4h -consult dietary Thrombocytosis -Platelets 473 -monitor in Am labs Hyponatremia -gentle IVF Anemia -H/H 8.1/24.8 -one unit PRBC (06/25) -monitor in AM labs -transfuse hgb <7 h/o NIDDM -accucheck with SSI h/o CVA, nonverbal -aspiration precautions -decubitus precuations -PT consulted h/o bilateral lower extremity amputation -decubitus precuations -supportive care Full code DVT ppx lovenox LOS 1 day Discharge Plan: Home Plan to discharge in: 48 Hours Time Spent Managing PTS Care (In Minutes): 35
[2023-06-27] MEDS ORDERED: DAPTOMYCIN IVPB SCH (18:00)
[2023-06-27] MEDS ORDERED: VANCOMYCIN 750 MG in NA CHLORIDE 0.9% 150 ML IVPB SCH (18:00)
[2023-06-27] MEDS ORDERED: NA CHLORIDE 0.9% IVPB SCH (18:00)
[2023-06-28] MEDS: Meropenem 1,000 MG in NA CHLORIDE 0.9% 100 ML IV SCH (06:06)
[2023-06-28] MEDS: INSULIN REGULAR (HUMAN) 100 UNIT/ML SQ SCH (07:30)
[2023-06-28] MEDS: Mupirocin NASAL 2 APPL/1 GM TUBE NAS SCH (07:58)
[2023-06-28] MEDS: ENOXAPARIN 40 MG/0.4 ML SQ SCH (07:58)
[2023-06-28] MEDS: GLUCERNA 1.5 CAL 1,000 ML BOT FT SCH (07:59)
--- NOTE | 2023-06-28 10:31 | P.DS ---
Admission Date: 06/24/23 Discharge Date: 06/28/23 Reason for Admission: Sacral pressure ulcer stage 4 Brief History of Present Illness: Juana Navarro 63-year-old female with past medical history of hypertension, CVA causing nonverbal state, G-tube with bolus tube feeds every 4 hours, and IDDM, bilateral lower extremity amputations, and chronic ulcer to back presents to the ED with altered mental status. Juana was found to have a UTI and pneumonia. Due to a chronic ulcer in her back she is actively seeing [facility] in [facility] with Dr. Gallegos. She was being prepared to have a PICC line placed for home IV antibiotics. We will need to obtain records from [facility] disease, consult Dr. Gallegos and Dr. Johnson. Initial vitals blood pressure 102/89, pulse 95, respirations 18, temp 98.6, pulse ox 100% on room air. Significant labs WBC 17, H&H 7.6, platelets 724, serum glucose 168, sodium 130. Of note Patient is nonverbal, she did cry when told she was being admitted. Upper extremities flaccid, Will need decubitus and aspiration precautions. Daughter at bedside who is the primary patient care technician instructor and good historian. Juana will be admitted to hospitalist service for further treatment of UTI, pneumonia, and chronic nonhealing healing ulcer on her back. Hospital Course: Juana is a pleasant 63-year-old female with a past medical history significant for hypertension, CVA causing nonverbal state, G-tube with bolus tube feeds every 4 hours, IDDM, bilateral lower extremity amputations, and chronic ulcer who was [facility] to [facility] 06/24/2020 for AMS. Juana presented to the ED with altered mental status. She was being prepared for home IV antibiotics through [facility] using IV daptomycin. During her admission she was found to have a urinary tract infection, pneumonia, and chronic nonhealing ulcers. She tolerated IV Rocephin then antibiotics changed to Merrem when urine culture resulted. Juana has tolerated tube feeds on a regular schedule as home, she is comfortable in bed, in no acute distress. Blood pressure stable, afebrile, awake and nodding her head to questions. PICC lines were attempted yet unsuccessful after several tries. Midline is in place for now. On 06/28/2023, Juana was seen on morning rounds and deemed medically stable for discharge. Juana was discharged with instructions to schedule follow-up appointments with [facility] and PCP. Juana was provided prescriptions for Cefpodoxime. The patient and family members were given the opportunity to ask questions and reported no further questions. Furthermore, all questions were answered to the best of my ability. A copy of this discharge summary will be sent to the above providers to facilitate continuity of care. Today, I personally spent 55 minutes with Juana, of which greater than 50% of the time was spent in patient education, counseling, and coordination of care as described above. Physical Exam General: Cachectic, Other (nonverbal) HEENT: Atraumatic, Normocephalic, PERRLA, Abnormal EOM Neck: Supple, 2+ carotid pulse no bruit, JVD not distended Respiratory: Clear to auscultation bilaterally Cardiovascular: No edema, Normal pulses, Regular rate/rhythm, Normal S1 S2 Capillary refill: <2 Seconds Gastrointestinal: Hypoactive, Soft and benign Musculoskeletal: No clubbing, Contractures (neck and spine position) Integumentary: Skin breakdown (sacral) Neurological: Other (nonverbal, previous CVA), Abnormal strength <Elodia Carlin - Last Filed: 06/28/23 10:49> Admission Date: 06/24/23 Discharge Date: 06/28/23 - Problems (1) Acute cystitis without hematuria Status: Acute (2) Altered mental status Status: Acute (3) Diabetes Status: Acute Qualifiers: Diabetes mellitus type: type 2 Diabetes mellitus intermediate insulin use: without intermediate use Diabetes mellitus complication status: with circulatory complication Diabetes mellitus complication detail: with peripheral angiopathy without gangrene Qualified Code(s): E11.51 - Type 2 diabetes mellitus with diabetic peripheral angiopathy without gangrene (4) History of CVA with residual deficit Status: Chronic (5) Stage IV decubitus ulcer Status: Acute (6) Osteomyelitis Status: Acute <cristian bermudez - Last Filed: 06/28/23 16:48> Disposition: ROUTINE DISCHARGE Discharge Condition: GOOD Vital Signs/Physical Exam: Temp Pulse Resp BP Pulse Ox 97.4 F 80 16 123/60 99 06/28/23 04:00 06/28/23 04:00 06/28/23 04:00 06/28/23 04:00 06/28/23 04:00 Laboratory Data at Discharge: WBC 13.20 thou/uL (4.3-10.9) H 06/26/23 03:19 Hgb 8.1 g/dL (12.0-15.0) L 06/26/23 03:19 Hct 24.8 % (36.0-45.0) L 06/26/23 03:19 Plt Count 473 thou/uL (152-406) H 06/26/23 03:19 PT 12.9 SECONDS (9.5-12.5) H 06/24/23 14:20 INR 1.17 06/24/23 14:20 APTT 29.6 SECONDS (24.3-36.9) 06/24/23 14:20 Sodium 131 mEq/L (136-145) L 06/25/23 02:38 Potassium 4.1 mEq/L (3.5-5.1) 06/25/23 02:38 BUN 24 mg/dL (7-18) H 06/25/23 02:38 Creatinine 0.49 mg/dL (0.55-1.02) L 06/27/23 17:25 Glucose 116 mg/dL (74-106) H 06/25/23 02:38 Phosphorus 2.7 mg/dL (2.5-4.9) 06/25/23 02:38 Magnesium 1.9 mg/dL (1.6-2.4) 06/25/23 02:38 Total Bilirubin 0.2 mg/dL (0.2-1.0) 06/24/23 12:55 AST 10 U/L (15-37) L 06/24/23 12:55 ALT < 10 U/L (13-56) L 06/24/23 12:55 Alkaline Phosphatase 85 U/L (45-117) 06/24/23 12:55 <Elodia Carlin - Last Filed: 06/28/23 10:49> Vital Signs/Physical Exam: Temp Pulse Resp BP Pulse Ox 96.9 F 80 20 124/57 L 98 06/28/23 12:00 06/28/23 12:00 06/28/23 12:00 06/28/23 12:00 06/28/23 12:00 Laboratory Data at Discharge: WBC 9.10 thou/uL (4.3-10.9) 06/28/23 10:24 Hgb 8.6 g/dL (12.0-15.0) L 06/28/23 10:24 Hct 26.1 % (36.0-45.0) L 06/28/23 10:24 Plt Count 498 thou/uL (152-406) H 06/28/23 10:24 PT 12.9 SECONDS (9.5-12.5) H 06/24/23 14:20 INR 1.17 06/24/23 14:20 APTT 29.6 SECONDS (24.3-36.9) 06/24/23 14:20 Sodium 136 mEq/L (136-145) 06/28/23 10:24 Potassium 5.0 mEq/L (3.5-5.1) 06/28/23 10:24 BUN 27 mg/dL (7-18) H 06/28/23 10:24 Creatinine 0.49 mg/dL (0.55-1.02) L 06/28/23 10:24 Glucose 186 mg/dL (74-106) H 06/28/23 10:24 Phosphorus 2.7 mg/dL (2.5-4.9) 06/25/23 02:38 Magnesium 1.9 mg/dL (1.6-2.4) 06/25/23 02:38 Total Bilirubin 0.2 mg/dL (0.2-1.0) 06/24/23 12:55 AST 10 U/L (15-37) L 06/24/23 12:55 ALT < 10 U/L (13-56) L 06/24/23 12:55 Alkaline Phosphatase 85 U/L (45-117) 06/24/23 12:55 <cristian bermudez - Last Filed: 06/28/23 16:48> Diet: Tube feed Time spent managing pt's care (in minutes): 55 <Elodia Carlin - Last Filed: 06/28/23 10:49> <cristian berumdez - Last Filed: 06/28/23 16:48> Home Medications: Glucerna 1.5 Vikas 237 ml FT QID #90 bot 02/10/18 Atorvastatin Calcium [Lipitor*] 20 mg FT BEDTIME #30 tab 11/14/18 traMADol HCL [Ultram*] 50 mg FT TID PRN #15 tab 11/14/18 Hydralazine [Apresoline*] 25 mg FT BID 07/14/19 Metformin HCl 500 mg FT BID 07/14/19 lisinopriL [Prinivil*] 40 mg FT DAILY 07/14/19 Cefpodoxime Proxetil 100 mg PO BID 5 Days #10 tab 06/28/23 New Medications: Cefpodoxime Proxetil 100 mg PO BID 5 Days #10 tab Physician Discharge Instructions: Problem: urinary tract infection 1. Please call and schedule a follow-up appointment with your PCP in 3-5 days - Please follow-up with your PCP for medication refills/adjustments 2. Please call and schedule a follow-up appointment with [facility] in 3-5 days 3. Start IV antibiotic regimen per [facility] 4. Pressure ulcer precuations, wound care as directed by [facility] 5. Continue tube feeds as previously arranged Midline to be changed in two weeks, Date of initial placement is 06/27/23 UTI antibiotic Cefpodoxime 100 MG via G tube twice times daily x 5 days Followup: NONE,NONE [Primary Care Provider] -
[2023-06-28 10:33] LABS: Absolute Lymphocytes (CBC) 1.2 K/uL (0.7-4.9); Hematocrit 26.1 % (36.0-45.0); MCV 79.6 fL (80-100); MPV 6.3 fL (7.6-11.3); Platelets 498 thou/uL (152-406); RBC Red Blood Cell Count 3.28 M/uL (3.86-4.86)
[2023-07-03 12:40] VITALS: BP 124/57; TEMP 96.9
== END 2023-06-28 12:33 | disposition home health service (06) | DRG 193 ==
LOC: ER 12:40 → ERHOLD 16:05 → 2ND 17:26
PROVIDERS: ADMIT Internal Medicine; ATTEND Internal Medicine
PROC: 30233N1 Transfusion of Nonautologous Red Blood Cells into Peripheral Vein, Percutaneous Approach (ICD-10-PCS; principal; 2023-06-25)
PROC: 05HY33Z Insertion of Infusion Device into Upper Vein, Percutaneous Approach (ICD-10-PCS; 2023-06-27)
DX: J18.9 Pneumonia, unspecified organism (principal); L89.154 Pressure ulcer of sacral region, stage 4; E87.1 Hypo-osmolality and hyponatremia; R64 Cachexia; N30.00 Acute cystitis without hematuria; M46.28 Osteomyelitis of vertebra, sacral and sacrococcygeal region; I10 Essential (primary) hypertension; D64.9 Anemia, unspecified; E78.5 Hyperlipidemia, unspecified; L89.210 Pressure ulcer of right hip, unstageable; E11.51 Type 2 diabetes mellitus with diabetic peripheral angiopathy without gangrene; E11.40 Type 2 diabetes mellitus with diabetic neuropathy, unspecified; D75.839 Thrombocytosis, unspecified; I69.320 Aphasia following cerebral infarction; Z93.1 Gastrostomy status; Z74.01 Bed confinement status; Z68.21 Body mass index [BMI] 21.0-21.9, adult; Z79.84 Long term (current) use of oral hypoglycemic drugs; Z89.512 Acquired absence of left leg below knee; Z89.511 Acquired absence of right leg below knee; Z79.899 Other long term (current) drug therapy; Z90.710 Acquired absence of both cervix and uterus; Z89.421 Acquired absence of other right toe(s); Z89.431 Acquired absence of right foot; Z87.891 Personal history of nicotine dependence; Z89.612 Acquired absence of left leg above knee; Z89.611 Acquired absence of right leg above knee
CPT/HCPCS: 36415; 36430; 36569; 51702; 71045; 80048; 80053; 80202; 81001; 82550; 82565; 82947; 83605; 83735; 84100; 85014; 85018; 85025; 85610; 85730; 86850; 86900; 86901; 86920; 87040; 87077; 87086; 87088; 87186; 87205; 93005; 96365; 96366; 96375; 99285; J0696; J0878; J1650; J2185; J7040; J7050; P9016

== ENCOUNTER 2023-07-16 11:19 | Emergency (ER) | payer OTHER ==
--- OUTSIDE RECORDS SUMMARY | 2023-07-16 11:26 | XMS REPORT | Continuity of Care Document ---
:1960 Author Organization [facility] t Address [address] [place] [address] Care Team Providers Name Role Phone PCP, PATIENT DOES NOT HAVE A Primary Care Physician UnavailFIDE Zhang Attending Clinician Unavailable RANDY RONQUILLO Attending Clinician Unavailable ANNIA JOSEPH Attending Clinician Unavailable Nelson MATIAS, Janeth Mejia Attending Clinician PERFECTO HESS Attending Clinician Unavailable Alina Dinero MD Attending Clinician Suzanne Smith DO Attending Clinician Doctor Unassigned, Goessel Attending Clinician Unavailable Fide Hernandez DDS Attending Clinician Skyler Veloz MD Attending Clinician Jeremiah Schulte MD Attending Clinician MICHELL BALL Attending Clinician Unavailable Han Elam MD Attending Clinician HAN ELAM Attending Clinician Unavailable HAN ELAM Attending Clinician Unavailable Jessica Nieto Attending Clinician FIDE HERNANDEZ Admitting Clinician Unavailable RANDY RONQUILLO Admitting Clinician Unavailable SUZANNE SMITH Admitting Clinician Unavailable Suzanne Smith DO Admitting Clinician Fdie Hernandez DDS Admitting Clinician Payers Payer Name Policy Type Policy Number Effective Date Expiration Date Han awad [facility] [id number] 2016 MEDICAID 00:00:00 Problems Condition Condition Condition [...] [place] c peptide c peptide 00 [facility] (BNP) (BNP) Branch level level HERNANDEZ HERNANDEZ Disease Active Univers (dyspnea (dyspnea 5-04 ity of on on 00:00: [place] exertion) exertion) 00 [facility] Branch Pneumonia Pneumonia Disease Active Uni vers [...] Disease Active Univers 5-03 ity of 00:00: Medical Branch Dysphagia Dysphagia Disease Active Uni vers due to old due to old 01-08 it y of stroke stroke 00:00: Medical Branch Facial Facial Disease Active Univers swelling swelling 03-03 ity of 00:00: Medical Branch Essential Essential Disease Active Overview: Univers hypertensi hypertensi 2-28 Formattin ity of on on 00:00: g of this [place] note Medical might be Branch different from the original. ICD10 Diagnosis Term Rivet Spinner Utility Urinary Urinary Disease Active Univers tract tract 05-15 ity of infection, infection, 00:00: [place] site not site not 00 Medica l specified specified Bran ch Cerebral Cerebral Disease Active Overview: Un nicole thrombosis thrombosis 05-15 Formattin ity of 00:00: g of this [place] note Medical might be Branch different from the original. ICD10 Diagnosis Term Rivet Spinner Utility Acute, but Acute, but Disease Active U nivers ill-define ill-define 05-13 it y of d, d, 00:00: [place] cerebrovas cerebrovas 00 Me dical cular cular [...] hyperlipid Marissa kes emia type emia type 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 foot with foot with Medi [place]iloh unspecifie unspecifie Ce nter d severity d severity Osteomyeli Osteomyeli Diagnosis Active Common tis, tis, Spirit unspecifie unspecifie - [facility] d d [facility] Type 2 Type 2 Problem Active Common diabetes diabetes Spirit mellitus mellitus - [facility] with foot with foot St ulcer ulcer [facility] Other Other Problem Active Common specified specified Spir it diabetes diabetes - [facility] mellitus mellitus St with other with other Marissa kes specified specified Medi [place]il[place] complicati complicati Ce nter on on Non-pressu Non-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 foot foot Medical limited to limited to Ce nter breakdown breakdown of skin of skin CVA, old, CVA, old, Problem Active Com mon aphasia aphasia Spirit - [facility] Diabetes Diabetes Problem Active Commo n mellitus mellitus Spirit due to due to - [facility] underlying underlying St condition condition Luke s with foot with foot Medi [facility] ulcer ulcer Center PEG PEG Problem Active Common (percutane (percutane Sp elizabeth ous ous - [facility] endoscopic endoscopic St gastrostom gastrostom Marissa kes y) y) Medical adjustment adjustment Ce nter /replaceme /replaceme nt/removal nt/removal Arthritis Arthritis Problem Active Com mon of of Spirit multiple multiple - [facility] sites sites [facility] 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 - [facility] Allergies, Adverse Reactions, Alerts Allergy Allergy Status Severity Reaction(s) Onset Inactive Treating Comm ents Source Name Type Date Date Clinician NO KNOWN Drug Active Univers ALLERGIE Class ity of [facility] Branch Social History Social Habit Start Date Stop Date Quantity Comments Source History of tobacco Cigarette Smoker University of use [place] [facility] History SDOH University o f Alcohol Std Drinks [place] [facility] History SDOH University o f Alcohol Binge [place] [facility] al Branch History SDOH Social Unive rsity of [facility] Branch History SDOH Social Unive rsity of [facility] Branch History SDOH Social Unive rsity of Connections [place] Medical Membership Branch History SDOH Social Unive rsity of Connections [place] Medical Meetings Branch History SDOH 2023-01-09 2023-01-09 [...] Physical Activity 00:00:00 00:00:00 [place] M edical DPW Branch History SDOH 2023-01-09 2023-01-09 1 University o f Physical Activity 00:00:00 00:00:00 [place] M edical MPS Branch History SDOH 2023-01-09 2023-01-09 5 University o f Financial 00:00:00 00:00:00 [place] Medical [facility] History SDOH Food 2023-01-09 2023-01-09 1 Univers ity of Worry 00:00:00 00:00:00 [place] [facility] History SDOH Food 2023-01-09 2023-01-09 1 Univers ity of Scarcity 00:00:00 00:00:00 [place] [facility] History SDOH 2023-01-09 2023-01-09 2 University o f Transport Med 00:00:00 00:00:00 [place] Medic al Branch History SDOH 2023-01-09 2023-01-09 2 University o f Transport Non-Med 00:00:00 00:00:00 [place] M edical Branch History SDOH 2023-01-09 2023-01-09 2 University o f Housing Unable to 00:00:00 00:00:00 [place] M edical Pay Branch History SDOH 2023-01-09 2023-01-09 1 University o f Housing Places 00:00:00 00:00:00 [place] Medi shil[place] Lived Branch History SDOH 2023-01-09 2023-01-09 2 University o f Housing Homeless 00:00:00 00:00:00 [place] Me dical Last Year Branch Exposure to 2022-12-29 2023-01-08 Yes [facility] SARS-CoV-2 (event) 00:00:00 02:49:00 [facility] Alcohol intake 2023-01-08 2023-01-08 Lifetime University of 00:00:00 00:00:00 non-drinker [facility] (finding) Branch Cigarettes smoked 2021-03-03 2021-03-03 Univers ity of current (pack per 00:00:00 00:00:00 [facility] ) - Reported Branch Cigarette 2021-03-03 2021-03-03 University of pack-years 00:00:00 00:00:00 [facility] Tobacco use and 2021-03-03 2021-03-03 Smokeless Universit y of exposure 00:00:00 00:00:00 tobacco non-user [facility]ly [facility] Sex Assigned At [birth year] UYEN Tovar 00:00:00 00:00:00 [facility] Smoking Status Start Date Stop Date Source Ex-smoker 2021-03-03 00:00:00 2021-03-03 00:00:00 Universi ty [facility] [place] [facility] Unknown if ever smoked [facility] [place] [facility] [place] [facility] Medications Ordered Filled Start Stop Current Ordering Indication Dosage Frequency Signature Comments Components Source Medication Medication Date Date Medication? Clinician (SIG) Name Name metoprolol 2022- No [id number] 12.5mg Take 0.5 Univers succinate 01-14 tablets by ity of XL 25 mg 24 00:00: 04:59 mouth in [place] hr tablet 00 :00 the [facility] for 30 days. metoprolol 2022- No [id number] 12.5mg Take 0.5 Univers succinate 01-14 tablets by ity of XL 25 mg 24 00:00: 04:59 mouth [place] hr tablet 00 :00 the [facility] for 30 days. aspirin 81 Yes 81mg Take 81 mg U nivers mg chewable 5-08 through ity o f tablet 17:16: enteral [place] 06 tube Medical daily. Branch aspirin 81 Yes 81mg Take 81 mg U nivers mg chewable 5-08 through ity o f tablet 17:16: enteral [place] 06 tube Medical daily. Branch lisinopriL 2022- No 20mg Take 20 mg Univers 20 mg 01-13-08 by mouth ity of tablet 13:29: 00:00 daily. [place] 53 :00 [facility] lisinopriL 2022-2022- No [id number] 10mg Take 1 Univers 10 mg 01-13-08 tablet by ity of tablet 00:00: 04:59 mouth in [place] 00 :00 [facility] for 30 days. lisinopriL 2022- No [id number] 10mg Take 1 Univers 10 mg 01-13-08 tablet by ity of tablet 00:00: 04:59 mouth in [place] 00 :00 [facility] for 30 days. metFORMIN Yes 500mg 500 mg, Univ ers (GLUCOPHAGE 01-12 Enteral, ity of ) tablet 13:00: BID MEALS, Eduardo as 500 mg 00 First dose Medical on Fri Branch 01/12/23 at 0800, Until Discontinu ed, Routine azithromyci 2022- No 500mg 500 mg, IV Univers n 5- 05-05 Piggyback, ity of (ZITHROMAX) 17:00: 18:38 ONCE, [...] Oral, ity of XL (TOPROL 14:00: DAILY, [place] XL) tablet 00 First dose Med ical 12.5 mg on Fri Branch 01/10/23 at 0900, Until Discontinu ed, Routine azithromyci 2022- No 500mg 500 mg, U nivers n 5- 05-05 Enteral, ity of (ZITHROMAX) 17:00: 12:53 Q24H, 2 [place] 100 mg/5 mL 00 :29 doses, Medica l suspension First dose Bra nch 500 mg on Fri01/09/23 at 1200, Last dose on Fri01/10/23 at 1200, JOSH
Re ason for Anti-Infec tive: Empiric Therapy for Suspected Infection< br>Empiric Therapy Site: Respirator y
Durat ion of therapy: 72 hours atorvastati 2023-0 Yes 10mg 10 mg, Univ ers n (LIPITOR) 5- Enteral, ity of tablet 10 02:00: QHS, First [place] mg 00 dose on Fri01/08/23 Branch at 2100, Until Discontinu ed, Routine enoxaparin 3-0 Yes 40mg 40 mg, Unive rs (LOVENOX) 01-08 Subcutaneo ity of injection 22:00: us, DAILY, [place] 40 mg 00 First dose Medical on Fri01/08/23 at 1700, Until Discontinu ed, Routine FLUoxetine 3-0 Yes 20mg 20 mg, Unive rs (PROZAC) 01-08 Oral, ity of capsule 20 14:00: DAILY, [place] mg 00 First dose Medical on Fri01/08/23 at 0900, Until Discontinu ed, Routine aspirin 3-0 Yes 81mg 81 mg, Univers chewable 01-08 Enteral, ity of tablet 81 14:00: DAILY, [place] mg 00 First dose Medical on Fri01/08/23 at 0900, Until Discontinu ed, Routine lisinopriL 2023-0 2023- No 20mg 20 mg, Univ ers (PRINIVIL,Z 01-08 05-04 Oral, ity of ESTRIL) 14:00: 22:45 DAILY, [place] tablet 20 00 :01 First dose Medi shil[place] mg on Fri01/08/23 at 0900, Until Discontinu ed, Routine hydrALAZINE 2023-0 Yes 25mg 25 mg, Univ ers (APRESOLINE - Enteral, ity of ) tablet 25 13:00: BID, First [place] mg 00 dose on Fri01/08/23 Branch at 0800, Until Discontinu ed, Routine chlorhexidi 2023-0 Yes 15mL 15 mL, Univ ers ne - Oral ity of (PERIDEX) 13:00: (Swish And [...] 2022- No 1000mg 1,000 mg, Univers (ROCEPHIN) 01-08 0507 IV ity of 1,000 mg in 09:45: [...] ity of bolus 08:47: PRN - SEE [place] infusion 05 INSTRUCTIO Medic al 250 mL [...] glucose is < 80 mg/dL, repeat.
glucagon 0 Yes 1mg 1 mg, Univers (GLUCAGEN 01-08 Intramuscu ity of DIAGNOSTIC 08:46: lar, PRN, [place] KIT) 59 Starting Medical injection 1 on Fri Branch mg 01/08/23 at 0346, Until Discontinu ed, JOSH, Blood Glucose < or = 70 mg/dL and patient is NPO, unable to swallow or has mental changes. dexamethaso 0 Yes 6mg 6 mg, Unive rs ne sod phos 03 Intravenou it y of PF 08:45: s, DAILY, [place] injection 6 00 First dose Me dical mg on Fri Branch 01/08/23 at 0345, Until Discontinu ed, 1 mL dextrometho 0 Yes 5mL 5 mL, Unive rs rphan-guaif 03 Oral, ity of enesin 08:34: Q6HPRN, [place] (ROBITUSSIN 12 Starting Medi shiloh DM) 10-100 on Fri Branch mg/5 mL 01/08/23 at solution 5 0334, mL Until Discontinu ed, Routine, Cough NaCl 0.9% 0 2022- No 500mL at 999 Univ ers (NS) bolus 01-08 05-03 mL/hr, 500 it y of infusion 06:45: 06:32 mL, IV [place] 500 mL 00 :00 Infusion, Medical ONCE, 1 Branch dose, On Fri01/08/23 at 0145, JOSH ondansetron Yes 4mg 4 mg, Slow Univers (ZOFRAN -03 IV Push, ity of (PF)) 06:17: Q6HPRN, [place] injection 4 48 Starting Medi shiloh mg on Fri Branch 01/08/23 at 0117, Until Discontinu ed, Routine, Nausea and Vomiting (N/V) acetaminoph Yes 650mg 650 mg, Un nicole en 5-03 Oral, ity of (TYLENOL) 06:17: Q6HPRN, [place] tablet 650 28 Starting Medic al mg on Fri Branch 01/08/23 at 0117, Until Discontinu ed, Routine, Pain (scale 1-3) lisinopriL 0 Yes 20mg Take 20 mg U nivers 20 mg 6-29 by mouth ity of tablet 20:52: daily. [address] aspirin 81 0 Yes 81mg Take 81 mg U nivers mg chewable 6-29 through ity o f tablet 20:52: enteral [place] 35 tube Medical daily. [place] lisinopriL 0 Yes 20mg Take 20 mg U nivers 20 mg 6-29 by mouth ity of tablet 20:52: daily. [address] aspirin 81 Yes 81mg Take 81 mg U nivers mg chewable 6-29 through ity o f tablet 20:52: enteral [place] 35 tube Medical daily. Branch lisinopriL 0 Yes 20mg Take 20 mg U nivers 20 mg 6-29 by mouth ity of tablet 20:52: daily. [address] aspirin 81 0 Yes 81mg Take 81 mg U nivers mg chewable 6-29 through ity o f tablet 20:52: enteral [place] 35 tube Medical daily. [place] lisinopriL Yes 20mg Take 20 mg U nivers 20 mg 6-29 by mouth ity of tablet 20:52: daily. [address] aspirin 81 0 Yes 81mg Take 81 mg U nivers mg chewable 6-29 through ity o f tablet 20:52: enteral [place] 35 tube Medical daily. [place] ceFEPIme 0 Yes 2000mg 2,000 mg, Un nicole (MAXIPIME) 6-29 IV ity of 2,000 mg in 16:15: Piggyback, [place] NaCl 0.9% 00 Q12H ABX, Medic al [...] ity of 2,000 mg in 16:15: Piggyback, [place] NaCl 0.9% 00 Q12H ABX, Medic al (NS) 100 mL First dose Br anch piggyback (after last modificati on) on Fri03/06/21 at 1115, Until Discontinu ed, 100 mL
Reas on for Anti-Infec tive: Documented Infection< br>Documen viv Infection Site: HEENT
D uration of Therapy: 7 days lisinopriL Yes 20mg Take 20 mg U nivers 20 mg 03-06 by mouth ity of tablet 12:35: daily. [place] [address] Medical Branch aspirin 81 0 Yes 81mg Take 81 mg U nivers mg chewable 03-06 through ity o f tablet 12:35: enteral [place] [id number] tube Medical daily. Branch chlorhexidi 0 Yes [id number] 15mL Swish and Univers ne 0.12 % 6-29 spit out ity of mouthwash 00:00: 15 mL 2 [place] [id number] (two) Medical times Branch daily. chlorhexidi 0 Yes [id number] 15mL Swish and Univers ne 0.12 % 6-29 spit out ity of mouthwash 00:00: 15 mL 2 [place] (two) Medical times Branch daily. chlorhexidi 2020-0 Yes [id number] 15mL Swish and Univers ne 0.12 % 6-29 spit out ity of mouthwash 00:00: 15 mL 2 [place] (two) Medical times Branch daily. chlorhexidi 2020-0 Yes [id number] 15mL Swish and Univers ne 0.12 % 6-29 spit out ity of mouthwash 00:00: 15 mL 2 [place] (two) Medical times Branch daily. chlorhexidi 2020-0 Yes [id number] 15mL Swish and Univers ne 0.12 % 6-29 spit out ity of mouthwash 00:00: 15 mL 2 [place] 00 (two) Medical times Branch daily. chlorhexidi 2020- Yes [id number] 15mL Swish and Univers ne 0.12 % 03-06 spit out ity of mouthwash 00:00: 15 mL 2 [place] 00 (two) Medical times Branch daily. amoxicillin 2020- No [id number] 1{tbl} Take 1 Univers -clavulanat 6-29 07-07 tablet by it y of e 00:00: 04:59 mouth 2 [place] (AUGMENTIN) 00 :00 (two) Medical 875-125 mg times Branch per tablet daily for 7 days. ibuprofen 2020- No [id number] 600mg Take 30 mL Univers 100 mg/5 mL 03-06-07 by mouth ity of oral 00:00: 04:59 every 6 [place] suspension 00 :00 (six) Medical hours as Branch needed for Pain (scale 1-3) or Alternate with [place] for pain scale 4-6 for up to 7 days. HYDROcodone 2020- No [id number] 7.5mg Take 15 mL Univers -acetaminop 03-06-07 by mouth 4 i ty of hen 7.5-325 00:00: 04:59 (four) Eduardo as mg/15 mL 00 :00 times Medical solution daily as Branch needed for Pain (scale 4-6) for up to 7 days. Indication s: acute pain amoxicillin 2020- No [id number] 1{tbl} Take 1 Univers -clavulanat -05 04-07 tablet by it y of e 00:00: 04:59 mouth 2 [place] (AUGMENTIN) 00 :00 (two) Medical 875-125 mg times Branch per tablet daily for 7 days. ibuprofen 2020- No [id number] 600mg Take 30 mL Univers 100 mg/5 mL 03-06-07 by mouth ity of oral 00:00: 04:59 every 6 [place] suspension 00 :00 (six) Medical hours as Branch needed for Pain (scale 1-3) or Alternate with [place] for pain scale 4-6 for up to 7 days. HYDROcodone 2020- No [id number] 7.5mg Take 15 mL Univers -acetaminop 6-05 04-07 by mouth 4 i ty of hen 7.5-325 00:00: 04:59 (four) Eduardo as mg/15 mL 00 :00 times Medical solution daily as Branch needed for Pain (scale 4-6) for up to 7 days. Indication s: acute pain amoxicillin 2020- No [id number] 1{tbl} Take 1 Univers -clavulanat 03-06 tablet by it y of e 00:00: 04:59 mouth 2 [place] (AUGMENTIN) 00 :00 (two) Medical 875-125 mg times Branch per tablet daily for 7 days. ibuprofen 2020- No [id number] 600mg Take 30 mL Univers 100 mg/5 mL 03-06 by mouth ity of oral 00:00: 04:59 every 6 [place] suspension 00 :00 (six) Medical hours as Branch needed for Pain (scale 1-3) or Alternate with [place] for pain scale 4-6 for up to [...] 1000mL at 75 Unive rs ringers IV 03-05-28 mL/hr, ity of infusion 20:45: 23:33 1,000 mL, Eduardo as 1,000 mL 00 :36 IV Medical Infusion, Branch CONTINUOUS , Starting Fri03/05/21 at 1545, Until Fri03/05/21 at 1833, Routine, PACU ondansetron 2020- No Slow IV Un nicole (ZOFRAN 03-05 Push, ONCE ity o f (PF)) 20:03: 20:23 INTRA [place] injection 00 :51 PROCEDURE, Medi [place]iloh Starting Branch Fri03/05/21 at 1503, Until Fri03/05/21 at 1523, Routine, Intra-op ketorolac 2020- No Slow IV Univ ers (TORADOL) 03-05 Push, ONCE ity of injection 20:03: 20:23 INTRA [place] 00 :51 PROCEDURE, Medical Starting Branch 03/05/21 at 1503, Until Fri03/05/21 at 1523, Routine, Intra-op lidocaine 2020- No PRN, Univers 2% - 03-05 Starting ity of epinephrine 19:56: 20:48 [facility] 1:100,000 00 :18 03/05/21 at Medi shil[place] syringe 1456, Branch Until Fri03/05/21 at 1548, Routine, Intra-op glycopyrrol 2020- No Intravenou Univers ate 03-05 s, ONCE ity of (ROBINUL) 19:53: 20:23 INTRA [place] injection 00 :51 PROCEDURE, Medi shiloh Starting Branch 03/05/21 at 1453, Until Fri03/05/21 at 1523, Routine, Intra-op ePHEDrine 2020- No Slow IV Univ ers 25 mg/5 mL 03-05 Push, ONCE it y of (5 mg/mL) 19:50: 20:23 INTRA [place] syringe 00 :51 PROCEDURE, Medica l Starting Branch 03/05/21 at 1450, Until Fri03/05/21 at 1523, Routine, Intra-op lactated 2020- No IV Univers ringers IV 03-05 Infusion, ity of infusion 19:14: 20:23 CONTINUOUS [place] 00 :51 PRN, Medical Starting Branch [facility] 03/05/21 at 1414, Until Fri03/05/21 at 1523, Routine, Intra-op FENTanyl PF 2020- No Epidural, Univers (SUBLIMAZE 03-05 ONCE INTRA it y of (PF)) 19:14: 20:23 PROCEDURE, [place] injection 00 :51 Starting Medica l Mon Branch 03/05/21 at 1414, Until Discontinu ed, Routine, Intra-op lidocaine 2020- No Slow IV Univ ers 1% 03-05 Push, ONCE ity of (XYLOCAINE) 19:14: 20:23 [place]TRA [place] 100 mg/10 00 :51 PROCEDURE, Medi shiolh mL (1 %) Starting Branch injection 03/05/21 at 1414, Until Discontinu ed, Routine, Intra-op rocuronium 2020- No IV Push, Un nicole (ZEMURON) 03-05 ONCE INTRA ity of injection 19:14: 20:23 PROCEDURE, [place] 00 :51 Starting [facility] 03/05/21 at 1414, Until Discontinu ed, Routine, Intra-op etomidate 2020- No Slow IV Univ ers (AMIDATE) 03-05 Push, ONCE ity of injection 19:14: 20:23 INTRA [place] 00 :51 PROCEDURE, [facility] 03/05/21 at 1414, Until Discontinu ed, Routine, Intra-op phenylephri 2020- No 1[drp] 1 Drop, Univers ne 03-05 Both Eyes, ity of (EHSAN-SYNEPH 12:15: 14:11 ONCE, 1 [place] RINE) 2.5 % 00 :00 dose, Mon Med ical ophthalmic 03/05/21 at [facility] drops 1 0715, Drop Routine tropicamide 2020- No 1[drp] 1 Drop, Univers (MYDRIACYL) 03-05 Both Eyes, i ty of 1 % 12:15: 14:11 ONCE, 1 [place] ophthalmic 00 :00 dose, Mon Medi shiloh drops 1 03/05/21 at [place] Drop 0715, Routine proparacain 2020- No 1[drp] 1 Drop, Univers e (ALCAINE) 03-05 Both Eyes, i ty of 0.5 % 12:15: 14:11 ONCE, 1 [place] ophthalmic 00 :00 dose, Mon Medi shiloh solution 1 03/05/21 at [facility] Drop 0715, Routine morpHINE 2020- No 2mg 2 mg, Slow Un nicole injection 2 03-05 IV Push, ity of mg 01:09: 01:08 [facility], [place] 18 :18 Starting [facility] 03/04/21 at 2009, Until 03/06/21 at 2008, Routine, Pain (scale 7-10) morpHINE 2020- No 2mg 2 mg, Slow Un nicole injection 2 03-05 IV Push, ity of mg 01:09: 01:08 Q6HPN, [place] 18 :18 Starting Medical Sun Branch 03/04/21 at 2008, Until Fri03/06/21 at 2007, Routine, Pain (scale 7-10) HYDROcodone 2020-2020- No 7.5mg 7.5 mg, U nivers -acetaminop [...] at 2006, Routine, Pain (scale 4-6) ibuprofen 2020-2020- No 600mg 600 mg, Uni vers (ADVIL 03-05 Oral, ity of CHILDREN'S) 01:08: 01:07 Q6HPRN, [place] 100 mg/5 mL 10 :10 Starting Medi shiloh oral Sun Branch suspension 03/04/21 at 600 mg 2007, Until Fri03/07/21 at 2006, Routine, Pain (scale 1-3) ibuprofen 2020- No 600mg 600 mg, Uni vers [...] at 1230, Until Discontinu ed, Routine scopolamine Yes 1.5mg 1.5 mg, Un nicole [...] 1 [place] gram/50 mL 00 :00 dose, Sun Medi shil[place] (8 %) IV 03/04/21 at Branc h Piggyback 4 0330, g Routine ceFEPIme 2020- No 2000mg 2,000 mg, U nivers (MAXIPIME) 03-04 IV ity of 2,000 mg in 04:15: 13:16 Piggyback, [place] NaCl 0.9% 00 :38 Q12H ABX, Medic al (NS) 100 mL First dose Br anch MINI-BAG on 03/03/21 at 2315, Until Discontinu ed, 100 mL
Reas on for Anti-Infec tive: Documented Infection< br>Documen viv Infection Site: HEENT<br&g t;Duration of Therapy: 7 days iohexoL 2020- No [id number] 50mL 50 mL, Un nicole (OMNIPAQUE 03-04 [...] Infusion, ity of (iso-os) 02:15: Q8H ABX, [place] (FLAGYL 00 First dose Medica l I.V.) RTU on [facility] Branch IV infusion 03/03/21 at 500 mg 2115, Until Discontinu ed, 100 mL
Reas on for Anti-Infec tive: Documented Infection< br>Documen viv Infection Site: HEENT
D uration of Therapy: 7 days metroNIDAZO Yes 500mg 500 mg, IV Univers LE in NaCl 03-04 Infusion, ity of (iso-os) 02:15: Q8H ABX, [place] (FLAGYL 00 First dose Medica l I.V.) RTU on Sat Branch IV infusion 03/03/21 at 500 mg 2114, Until Discontinu ed, 100 mL
Reas on for Anti-Infec tive: Documented Infection< br>Documen viv Infection Site: HEENT
D uration of Therapy: 7 days cefTRIAXone No 1000mg 1,000 mg, Univers (ROCEPHIN) 03-04 IV ity of 1,000 mg in 02:15: 03:09 [place], [place] NaCl 0.9% 00 :46 Q24H ABX, [...] Routine Sliding Yes Subcutaneo Univ ers Scale -27 us, TID ity of Insulin - 02:00: [...] glucagon Yes 1mg 1 mg, Univers (GLUCAGEN 627 Intramuscu ity of DIAGNOSTIC 01:49: lar, PRN, [...] swallow or has mental status changes. glucagon 0 Yes 1mg 1 mg, Univers (GLUCAGEN 27 Intramuscu ity of DIAGNOSTIC 01:49: lar, PRN, [...] Entered ity of 01:41: 00:00 02 : [facility] MIRAPEX 2020- No None Univers 0.25 MG 03-04 Entered ity of ORAL TAB :41: 00:00 02 : [facility] PROZAC 20 2020- No None Univers MG ORAL CAP 03-04 Entered ity of 01:41: 00:00 02 : [facility] MIRAPEX 2020- No None Univers 0.25 MG 03-04 Entered ity of ORAL TAB 01:41: 00:00 [place] 02 :00 [facility] lactated Yes 1000mL at 50 Univer s [...] by mouth ity of tablet 16:24: daily. [address] lisinopriL Yes 20mg Take 20 mg U nivers 20 mg 2-09 by mouth ity of tablet 16:24: daily. [address] atorvastati Yes Univer s n 10 mg - ity of tablet 00:00: [address] [place] [address] hydrALAZINE Yes Univer s 25 mg -29 ity of tablet 00:00: [facility] [place] pantoprazol Yes Univer s e 40 mg EC - ity of tablet 00:00: Medical Branch atorvastati Yes Univer s n 10 mg 1-29 ity of tablet 00:00: [place] [facility] hydrALAZINE 0 Yes 25mg Take 25 mg Univers 25 mg 1-29 through ity of tablet 00:00: enteral [place] 00 tube 2 Medical (two) Branch times daily. pantoprazol 0 Yes Univer s e 40 mg EC 1-29 ity of tablet 00:00: [place] [facility] atorvastati Yes Univer s n 10 mg 1-29 ity of tablet 00:00: [place] [facility] hydrALAZINE 0 Yes 25mg Take 25 mg Univers 25 mg 1-29 through ity of tablet 00:00: enteral [place] 00 tube 2 Medical (two) Branch times daily. pantoprazol Yes Univer s e 40 mg EC 1-29 ity of tablet 00:00: [place] [facility] atorvastati Yes Univer s n 10 mg 1-29 ity of tablet 00:00: [place] [facility] hydrALAZINE 0 Yes 25mg Take 25 mg Univers 25 mg 1-29 through ity of tablet 00:00: enteral [place] 00 tube 2 Medical (two) Branch times daily. pantoprazol 0 Yes Univer s e 40 mg EC 1-29 ity of tablet 00:00: [place] [facility] atorvastati 0 Yes Univer s n 10 mg 1-29 ity of tablet 00:00: [place] [facility] hydrALAZINE 0 Yes 25mg Take 25 mg Univers 25 mg 1-29 through ity of tablet 00:00: enteral [place] 00 tube 2 Medical (two) Branch times daily. pantoprazol 0 Yes Univer s e 40 mg EC 1-29 ity of tablet 00:00: [place] [facility] atorvastati 0 Yes Univer s n 10 mg 1-29 ity of tablet 00:00: [place] [facility] hydrALAZINE 0 Yes 25mg Take 25 mg Univers 25 mg 1-29 through ity of tablet 00:00: enteral [place] 00 tube 2 Medical (two) Branch times daily. pantoprazol 0 Yes Univer s e 40 mg EC 1-29 ity of tablet 00:00: [place] [facility] atorvastati Yes Univer s n 10 mg -29 ity of tablet 00:00: [place] [facility] hydrALAZINE Yes 25mg Take 25 mg Univers 25 mg -29 through ity of tablet 00:00: [place] 00 tube 2 Medical (two) Branch times daily. pantoprazol Yes Univer s e 40 mg EC - ity of tablet 00:00: [place] [facility] atorvastati Yes Univer s n 10 mg 29 ity of tablet 00:00: [place] [facility] hydrALAZINE Yes 25mg Take 25 mg Univers 25 mg 29 through ity of tablet 00:00: enteral [place] 00 tube 2 Medical (two) Branch times daily. pantoprazol Yes Univer s e 40 mg EC - ity of tablet 00:00: [place] [facility] atorvastati Yes Univer s n 10 mg 10-06 ity of tablet 00:00: [place] [facility] hydrALAZINE Yes Univer s 25 mg -29 ity of tablet 00:00: [place] [facility] pantoprazol Yes Univer s e 40 mg EC 10-06 ity of tablet 00:00: [place] [facility] iohexol 2020-0 2020- No 120mL 120 mL, Unive rs (OMNIPAQUE 04-04- Intravenou it y of 350 18:15: 17:45 s, ONCE, 1 [place] BULK-150 00 :00 dose, Tue Medica l mL) 04/04/20 at Branch injection 1315, 120 mL Routine Acetaminoph Acetaminoph 2018-0 2019- No Chris 5ml Common en en 02-25 Km [facility] 00:00: 00:00 - [facility] 00 :00 [facility] PLAVIX 75 2006- Yes 1 by mouth Un nicole MG ORAL TAB 6-12 every day ity of 00:00: [place] [facility] PLAVIX 75 2006- Yes 1 by mouth Un nicole MG ORAL TAB 6-12 every day ity of 00:00: [place] [facility] PLAVIX 75 2006- Yes 1 by mouth Un nicole MG ORAL TAB 6-12 every day ity of 00:00: Medical Branch PLAVIX 75 Yes 1 by mouth Un nicole MG ORAL TAB 6-12 every day ity of 00:00: Medical Branch PLAVIX 75 2020- No 1 by mouth U nivers MG ORAL TAB 6-12 - every day it y of 00:00: 00:00 [place] 00 :00 Medical Branch PLAVIX 75 2020- No 1 by mouth U nivers MG ORAL TAB 6-12 - every day it y of 00:00: 00:00 [place] 00 :00 [facility] PROZAC 20 Yes None Univers MG ORAL CAP 6-10 Entered ity o f 19:53: [address] MIRAPEX Yes None Univers 0.25 MG 6-10 Entered ity of ORAL TAB 19:53: [address] PROZAC 20 Yes None Univers MG ORAL CAP 6-10 Entered ity o f 19:53: [address] MIRAPEX Yes None Univers 0.25 MG 6-10 Entered ity of ORAL TAB 19:53: [address] PROZAC 20 Yes None Univers MG ORAL CAP 6-10 Entered ity o f 19:53: [address] [facility] Yes None Univers 0.25 MG 6-10 Entered ity of ORAL TAB 19:53: [address] PROZAC 20 Yes None Univers MG ORAL CAP 6-10 Entered ity o f 19:53: [address] MIRAPEX Yes None Univers 0.25 MG 6-10 Entered ity of ORAL TAB 19:53: [address] PRAMIPEXOLE Yes 1 Tab Oral Univers 0.25 MG 3-02 once daily ity of ORAL TAB 00:00: [facility] [place] ASPIRIN 325 Yes 1 Tab Oral Univers MG ORAL 3-02 DAILY ity of TBEC 00:00: Medical Branch CLOPIDOGREL Yes 1 Tab Oral Univers 75 MG ORAL 3-02 DAILY ity of TAB 00:00: Medical Branch METFORMIN 2006- Yes 1 Tab Oral Un nicole 500 MG ORAL 3-02 BID MEALS ity of TAB 00:00: Medical Branch ENALAPRIL 2007-0 Yes 1 [...] TAB 00:00: [place] 00 Medical Branch METFORMIN 2006-0 Yes 1 Tab Oral Un nicole 500 MG ORAL 3-02 BID MEALS ity of TAB 00:00: [place] 00 Medical Branch FLUOXETINE 2006-0 Yes 1 Cap Oral U nivers 20 MG ORAL 3-02 DAILY ity of CAP 00:00: [place] 00 Medical Branch METFORMIN 2006-0 Yes 1 Tab Oral Un nicole 500 MG ORAL 3-02 BID MEALS ity of TAB 00:00: [place] 00 Medical Branch FLUOXETINE 2006-0 Yes 1 Cap Oral U nivers 20 MG ORAL 3-02 DAILY ity of CAP 00:00: [place] 00 Medical Branch PRAMIPEXOLE 2007-0 Yes 1 Tab Oral Univers 0.25 MG 3-02 once daily ity of ORAL TAB 00:00: [place] 00 Medical Branch ASPIRIN 325 2007-0 Yes 1 Tab Oral Univers MG ORAL 3-02 DAILY ity of TBEC 00:00: [place] [facility] METFORMIN 2006-0 Yes 1 Tab Oral Un nicole 500 MG ORAL 3-02 BID MEALS ity of TAB 00:00: [place] 00 Medical Branch CLOPIDOGREL 2007-0 Yes 1 Tab Oral Univers 75 MG ORAL 3-02 DAILY ity of TAB 00:00: [place] 00 Medical Branch FLUOXETINE 2007-0 Yes 1 Cap Oral U nivers 20 MG ORAL 3-02 DAILY ity of CAP 00:00: [place] 00 Medical Branch METFORMIN 2007-0 Yes 1 Tab Oral Un nicole 500 MG ORAL 3-02 BID MEALS ity of TAB 00:00: [place] 00 Medical Branch METFORMIN 2006-0 Yes 1 Tab Oral Un nicole 500 MG ORAL 3-02 BID MEALS ity of TAB 00:00: [place] 00 Medical Branch FLUOXETINE 2007-0 Yes 1 Cap Oral U nivers 20 MG ORAL 3-02 DAILY ity of CAP 00:00: [place] 00 Medical Branch ENALAPRIL 2007-0 [...] 1 Tab Oral Univers 0.25 MG 3-02 - once daily ity o f ORAL TAB 00:00: 00:00 [place] 00 :00 Medical Branch ASPIRIN 325 2007-0 1- No 1 Tab Oral Univers MG ORAL 3-02 -26 DAILY ity of TBEC 00:00: 00:00 [place] 00 :00 Medical Branch CLOPIDOGREL 2007-0 2021- No 1 Tab Oral Univers 75 MG ORAL 3-02 -26 DAILY ity of TAB 00:00: 00:00 [place] 00 :00 Medical Branch ENALAPRIL 2007-0 2021- No 1 Tab Oral U nivers MALEATE 10 3-02 - DAILY ity of MG ORAL TAB 00:00: 00:00 [place] 00 :00 Medical Branch FOLIC ACID 2007-0 2021- No 1 Tab Oral Univers 1 MG ORAL 3-02 -26 DAILY ity of TAB 00:00: 00:00 [place] 00 :00 Medical Branch PYRIDOXINE 2021- No 1 Tab Oral Univers 50 MG ORAL 11-07 DAILY ity of TAB 00:00: 00:00 [place] 00 :00 Medical Branch PRAMIPEXOLE 1- No 1 Tab Oral Univers 0.25 MG 11-07 once daily ity o f ORAL TAB 00:00: 00:00 [place] 00 :00 Medical Branch ASPIRIN 325 1- No 1 Tab Oral Univers MG ORAL 11-07 DAILY ity of TBEC 00:00: 00:00 [place] 00 :00 Medical Branch CLOPIDOGREL 1- No 1 Tab Oral Univers 75 MG ORAL 11-07 DAILY ity of TAB 00:00: 00:00 [place] 00 :00 Medical Branch ENALAPRIL 2020- No 1 Tab Oral U nivers MALEATE 10 11-07 DAILY ity of MG ORAL TAB 00:00: 00:00 [place] 00 :00 Medical Branch FOLIC ACID 1- No 1 Tab Oral Univers 1 MG ORAL 11-07 DAILY ity of TAB 00:00: 00:00 [place] 00 :00 Medical Branch PYRIDOXINE 1- No 1 Tab Oral Univers 50 MG ORAL 11-07 DAILY ity of TAB 00:00: 00:00 [place] 00 :00 Medical Branch Lisinopril Lisinopril Yes Chris [address] [facility] Lisinopril Lisinopril Yes Chris [address] [facility] Pantoprazol Pantoprazol Yes Chris 1 tablet Common e Sodium e Sodium Km [facility] Metformin Metformin Yes Chris 1 tablet Common HCl HCl Km with a Spirit meal [facility] Tramadol Tramadol Yes Chris as Commo n HCl HCl Km directed [facility] Plavix Plavix Yes Chris 1 tablet Commo n Km [facility] Atorvastati Atorvastati Yes Chris TAKE 1 Common n Calcium n Calcium Km TABLET BY Spirit MOUTH AT [facility] BEDTIME [facility] HydrALAZINE HydrALAZINE Yes Chris 1 tablet Common HCl HCl Km with food [facility] - [facility] Vital Signs Vital Name Observation Time Observation Value Comments Source Systolic blood 2023-01-13 12:43:00 133 mm[Hg] Univer sity of pressure [place] [facility] Diastolic blood 2023-01-13 12:43:00 69 mm[Hg] Unive rsity of pressure [place] [facility] Heart rate 2023-01-13 12:43:00 80 /min [facility] ty [facility] [place] [facility] Body temperature 2023-01-13 12:43:00 36.06 Lorna Univ ersity of [place] [facility] Respiratory rate 2023-01-13 12:43:00 17 /min Univ ersity of [place] [facility] Oxygen saturation in 2023-01-13 12:43:00 95 /min University of Arterial blood by [place] [employer] Pulse oximetry Branch Body weight 2023-01-13 08:52:00 62.234 kg [facility]i ty [facility] [place] [facility] BMI 2023-01-13 08:52:00 25.92 kg/m2 [facility] [place] [facility] Body height 2023-01-08 07:51:00 154.9 cm Universi ty [facility] [place] [facility] Systolic blood 2021-03-06 17:19:00 136 mm[Hg] Univer sity of pressure [place] [facility] Diastolic blood 2021-03-06 17:19:00 68 mm[Hg] Unive rsity of pressure [place] [facility] Heart rate 2021-03-06 17:19:00 69 /min [facility]i ty [facility] [place] [facility] Body temperature 2021-03-06 17:19:00 36.83 Lorna Univ ersity of [place] [facility] Respiratory rate 2021-03-06 17:19:00 20 /min Univ ersity of [place] [facility] Oxygen saturation in 2021-03-06 17:19:00 93 /min University of Arterial blood by [employer] Pulse oximetry Branch Body height 2021-03-03 21:00:00 152.4 cm Universi ty [facility] [place] [facility] Body weight 2021-03-03 21:00:00 46.494 kg [facility]i ty [facility] [place] [facility] BMI 2021-03-03 21:00:00 20.02 kg/m2 [facility] [place] [facility] Systolic blood 2021-03-06 17:19:00 136 [...] 93 /min University of Arterial blood by [facility] [place] [facility] Pulse oximetry Branch Body height 2021-03-03 21:00:00 152.4 cm Universi ty [facility] [place] [facility] Body weight 2021-03-03 21:00:00 46.494 kg Universi ty of [place] [facility] BMI 2021-03-03 21:00:00 20.02 kg/m2 [...] 93 /min University of Arterial blood by [facility] [place] [facility] Pulse oximetry Branch Body temperature 2021-03-05 20:16:00 36 Lorna Univ ersity of [place] [facility] Body height 2021-03-03 21:00:00 152.4 [...] 2021-03-05 20:45:00 100 /min Universi ty of [place] [facility] Respiratory rate 2021-03-05 20:45:00 22 /min Univ ersity of [place] [facility] Oxygen saturation in 2021-03-05 20:45:00 93 /min University of Arterial blood by [facility] Pulse oximetry Branch Body temperature 2021-03-05 20:16:00 36 Lorna Univ ersity of [place] [facility] Body height 2021-03-03 21:00:00 152.4 cm Universi ty [facility] [place] [facility] Body weight 2021-03-03 21:00:00 46.494 kg Universi ty [facility] [place] [facility] BMI 2021-03-03 21:00:00 20.02 kg/m2 [facility]i ty [facility] [place] [facility] Systolic blood 2020-10-17 16:27:00 148 mm[Hg] Univer sity of pressure [place] [facility] Diastolic blood 2020-10-17 16:27:00 86 mm[Hg] Unive rsity of pressure [place] [facility] Heart rate 2020-10-17 16:27:00 71 /min Universi ty of [place] [facility] Oxygen saturation in 2020-10-17 16:27:00 100 /min University of Arterial blood by [facility] [place] [facility] Pulse oximetry Branch Systolic blood 2020-10-17 16:27:00 148 mm[Hg] Univer sity of pressure [place] [facility] Diastolic blood 2020-10-17 16:27:00 86 mm[Hg] Unive rsity of pressure [place] [facility] Heart rate 2020-10-17 16:27:00 71 /min Universi ty of [place] [facility] Oxygen saturation in 2020-10-17 16:27:00 100 /min University of Arterial blood by [facility] Pulse oximetry Branch Systolic blood 2020-04-04 19:58:49 139 mm[Hg] Univer sity of pressure [place] [facility] Diastolic blood 2020-04-04 19:58:49 67 mm[Hg] Unive rsity of pressure [place] [facility] Heart rate 2020-04-04 19:58:49 77 /min Universi ty [facility] [place] [facility] Body temperature 2020-04-04 19:58:49 37.28 Lorna Univ ersity of [place] [facility] Respiratory rate 2020-04-04 19:58:49 20 /min Univ ersity of [place] [facility] Oxygen saturation in 2020-04-04 19:58:49 98 /min University Arterial blood by [facility] [place] [facility] Pulse oximetry Branch Body weight 2020-04-04 16:01:[address] [facility] Procedures Procedure Date / Time Performing Clinician Source Performed POCT GLUCOSE (AUTOMATED) 2023-01-13 17:22:00 Perfecto Hess [facility] POCT GLUCOSE (AUTOMATED) 2023-01-13 12:57:00 Perfecto Hess [facility] BASIC METABOLIC PANEL 2023-01-13 09:14:00 April Cosby [facility] (NA, K, CL, CO2, GLUCOSE, Medica l Branch BUN, CREATININE, CA) POCT GLUCOSE (AUTOMATED) 2023-01-13 02:02:00 Perfecto Hess [facility] POCT GLUCOSE (AUTOMATED) 2023-01-12 21:30:00 [facility] 2023-01-12 16:36:00 [facility] ([facility]) 2023-01-12 13:28:00 Perfecto Hess [facility] POCT GLUCOSE (AUTOMATED) 2023-01-12 01:41:00 Perfecto Hess [facility] POCT GLUCOSE (AUTOMATED) 2023-01-11 21:31:00 Perfecto Hess [facility] POCT GLUCOSE (AUTOMATED) 2023-01-11 17:23:00 Perfecto Hess [facility] MAGNESIUM 2023-01-11 15:21:[address] [facility] [place] [place] BASIC METABOLIC PANEL 2023-01-11 15:21:00 Daniel Abdirizak [facility] (NA, K, CL, CO2, GLUCOSE, Medica l Branch BUN, CREATININE, CA) CBC WITH DIFF 2023-01-11 15:21:[address] [facility] [place] [place] POCT GLUCOSE (AUTOMATED) 2023-01-11 13:47:00 Perfecto Hess [facility] POCT GLUCOSE (AUTOMATED) 2023-01-11 01:34:00 Perfecto Hess [facility] POCT GLUCOSE (AUTOMATED) 2023-01-10 22:15:00 Perfecto Hess Mackenzie [facility] POCT GLUCOSE (AUTOMATED) 2023-01-10 19:10:00 Perfecto Hess [facility] POCT GLUCOSE (AUTOMATED) 2023-01-10 16:45:00 Perfecto Hess [facility] XR CHEST 1 VW 2023-01-10 15:44:33 reji [facility] o f [facility] CT ABDOMEN WO CONTRAST 2023-01-10 15:42:46 Daniel [facility] POCT GLUCOSE (AUTOMATED) 2023-01-10 13:10:00 Perfecto Hess [facility] BASIC METABOLIC PANEL 2023-01-10 09:58:00 Nicanor Barfield [facility] (NA, K, CL, CO2, GLUCOSE, Medica l Branch BUN, CREATININE, CA) CBC WITH DIFF 2023-01-10 09:58:00 Nicanor Barfield [facility] [place] [facility] N-TERMINAL PRO-BNP 2023-01-10 09:58:00 Nicanor Barfield [facility] POCT GLUCOSE (AUTOMATED) 2023-01-10 01:15:00 Perfecto Hess [facility] TRANSTHORACIC ECHO (TTE) 2023-01-09 21:24:57 Nicanor Barfield [facility] POCT GLUCOSE (AUTOMATED) 2023-01-09 21:20:00 Perfecto Hess [facility] HB ECG ROUTINE & RHYTHM 2023-01-09 20:45:12 Michell Ball [facility] CLOSTRIDIUM DIFFICILE 2023-01-09 17:13:00 Nicanor Barfield [facility] POCT GLUCOSE (AUTOMATED) 2023-01-09 17:03:00 Perfecto Hess [facility] POCT GLUCOSE (AUTOMATED) 2023-01-09 12:24:00 [facility] 2023-01-09 09:44:00 Nicanor Barfield [facility] [place] [facility] TROPONIN I 2023-01-09 09:44:[address] [facility] BASIC METABOLIC PANEL 2023-01-09 09:44:00 Nicanor Barfield [facility] (NA, K, CL, CO2, GLUCOSE, Medica l Branch BUN, CREATININE, CA) LIPID PANEL ([id number])(TOTAL 2023-01-09 09:44:00 Michell Ball [facility]IGLY[facility], HDL) CBC WITH DIFF 2023-01-09 09:44:00 [facility] N-TERMINAL PRO-BNP 2023-01-09 09:44:00 Michell Ball [facility] POCT GLUCOSE (AUTOMATED) 2023-01-09 01:23:00 Deshawn [facility] POCT GLUCOSE (AUTOMATED) 2023-01-08 22:42:00 Deshawn [facility] POCT GLUCOSE (AUTOMATED) 2023-01-08 17:24:00 Deshawn [facility] POCT GLUCOSE (AUTOMATED) 2023-01-08 13:23:00 Deshawn [facility] GLYCOSYLATED HEMOGLOBIN 2023-01-08 09:44[facility] LACTIC ACID WHOLE BLOOD 2023-01-08 09:44:00 Deshawn [facility] LACTIC ACID WHOLE BLOOD 2023-01-08 05:46:00 Alina Dinero [facility] XR CHEST 1 VW 2023-01-08 05:38:38 April Shah [place] o f [facility] ASSIGNMENT OF BENEFITS 2023-01-08 05:26:12 Doctor Unassigned, No [facility] NOTICE OF PRIVACY 2023-01-08 05:25:01 Doctor Unassigned, No [facility] CONSENT/REFUSAL FOR 2023-01-08 05:24:47 Doctor Unassigned, No Un [facility] DIAGNOSIS AND TREATMENT Name [facility] [place] HB ECG ROUTINE & RHYTHM 2023-01-08 05:22:39 April Shah [facility] STRIP Medical Branch LIPASE 2023-01-08 05:20:00 April Shah [facility] TROPONIN I 2023-01-08 05:20:00 April Shah [facility] COMP. METABOLIC PANEL 2023-01-08 05:20:00 April Shah [facility] ([id number]) Medical Branch CBC WITH DIFF 2023-01-08 05:20:00 April Shah [facility] N-TERMINAL PRO-BNP 2023-01-08 05:20:00 April Shah [facility] COVID-19 (ID NOW RAPID 2023-01-08 05:20:00 April Shah [facility] TESTING) Medical Branch LAB ONLY COVID 2023-01-08 05:20:00 April Shah [facility] EXTERNAL PROVIDER RECORDS 2021-03-15 05:01:00 Doctor Unassigned, No [facility] Name [facility] POCT GLUCOSE (AUTOMATED) 2021-03-06 17:23:00 Fide Hernandez [facility] [place] [facility] POCT GLUCOSE (AUTOMATED) 2021-03-06 17:23:00 Fide Hernandez [facility] [place] [facility] POCT GLUCOSE (AUTOMATED) 2021-03-06 13:03:00 Fide Hernandez [facility] [place] [facility] POCT GLUCOSE (AUTOMATED) 2021-03-06 13:03:00 Fide Hernandez [facility] [place] [facility] BASIC METABOLIC PANEL 2021-03-06 10:29:00 [facility] (NA, K, CL, CO2, GLUCOSE, Medica l Branch BUN, CREATININE, CA) CBC WITH DIFF 2021-03-06 10:29:00 Natanael [facility] BASIC METABOLIC PANEL 2021-03-06 10:29:00 [facility] (NA, K, CL, CO2, GLUCOSE, Medica l Branch BUN, CREATININE, CA) CBC WITH DIFF 2021-03-06 10:29:[address] [facility] POCT GLUCOSE (AUTOMATED) 2021-03-06 02:53:00 Fide Hernandez [facility] [place] [facility] POCT GLUCOSE (AUTOMATED) 2021-03-06 02:53:00 Fide Hernandez [facility] [place] [facility] POCT GLUCOSE (AUTOMATED) 2021-03-05 21:22:00 Fide Hernandez [facility] [place] [facility] POCT GLUCOSE (AUTOMATED) 2021-03-05 21:22:00 Fide Hernandez [facility] [place] [facility] FULL MOUTH EXTRACTION 2021-03-05 19:01:00 Fide Hernandez [facility] WITH ALVEOLOPLASTY Medical Branc h FULL MOUTH EXTRACTION 2021-03-05 19:01:00 Fide Hernandez [facility] WITH ALVEOLOPLASTY Medical Branc h POCT GLUCOSE (AUTOMATED) 2021-03-05 15:23:00 Fide Hernandez [facility] [place] [facility] POCT GLUCOSE (AUTOMATED) 2021-03-05 15:23:00 Fide Hernandez [facility] [place] [facility] VANCOMYCIN TROUGH 2021-03-05 15:06:00 [facility] VANCOMYCIN TROUGH 2021-03-05 15:06:00 [facility] POCT GLUCOSE (AUTOMATED) 2021-03-05 12:42:00 Fide Hernandez [facility] [place] [facility] POCT GLUCOSE (AUTOMATED) 2021-03-05 12:42:00 Fide Hernandez [facility] [place] [facility] BASIC METABOLIC PANEL 2021-03-05 07:14:00 [facility] (NA, K, CL, CO2, GLUCOSE, Medica l Branch BUN, CREATININE, CA) CBC WITH DIFF 2021-03-05 07:14:[address] [facility] BASIC METABOLIC PANEL 2021-03-05 07:14:00 [facility] (NA, K, CL, CO2, GLUCOSE, Medica l Branch BUN, CREATININE, CA) CBC WITH DIFF 2021-03-05 07:14:00 Taurus Santoyo [place] [facility] POCT GLUCOSE (AUTOMATED) 2021-03-05 01:42:00 Fide Hernandez [facility] [place] [facility] POCT GLUCOSE (AUTOMATED) 2021-03-05 01:42:00 Fide Hernandez [facility] [place] [facility] POCT GLUCOSE (AUTOMATED) 2021-03-04 22:17:00 Fide Hernandez [facility] [place] [facility] POCT GLUCOSE (AUTOMATED) 2021-03-04 22:17:00 Fide Hernandez [facility] [place] [facility] POCT GLUCOSE (AUTOMATED) 2021-03-04 16:53:00 Fide Hernandez [facility] [place] [facility] POCT GLUCOSE (AUTOMATED) 2021-03-04 16:53:00 Fide Hernandez [facility] [place] [facility] XR CHEST 2 VW 2021-03-04 15:10:54 Alejandro Arellano [facility] XR CHEST 2 VW 2021-03-04 15:10:54 Alejandro Arellano [facility] [place] [facility] POCT GLUCOSE (AUTOMATED) 2021-03-04 12:21:00 Fide Hernandez [facility] [place] [facility] POCT GLUCOSE (AUTOMATED) 2021-03-04 12:21:00 Fide Hernandez [facility] [place] [facility] POCT GLUCOSE (AUTOMATED) 2021-03-04 04:33:00 Fide Hernandez [facility] [place] [facility] POCT GLUCOSE (AUTOMATED) 2021-03-04 04:33:00 Fide Hernandez [facility] [place] [facility] HB ECG ROUTINE & RHYTHM 2021-03-04 03:31:05 [facility] ROUTINE & RHYTHM 2021-03-04 03:31:05 [facility] MAGNESIUM 2021-03-04 03:29[facility] 2021-03-04 03:29:00 Edilberto [facility] BASIC METABOLIC PANEL 2021-03-04 03:29:[facility] ([facility], K, CL, CO2, GLUCOSE, Medica l Branch BUN, CREATININE, CA) SEDIMENTATION RATE 2021-03-04 03:29:00 Edilberto [facility] CBC WITH DIFF 2021-03-04 03:29:00 Edilberto [facility] GLYCOSYLATED HEMOGLOBIN 2021-03-04 03:29:[facility] [place] EAR CULTURE 2021-03-04 03:29:00 Edilberto [facility] MRSA / MSSA SCREEN BY 2021-03-04 03:29:00 Edilberto [facility] MAGNESIUM 2021-03-04 03:29:00 Edilberto [facility] C-REACTIVE PROTEIN 2021-03-04 03:29:00 [facility] PANEL 2021-03-04 03:29:00 Edilberto [facility] (NA, K, CL, CO2, GLUCOSE, Medica l Branch BUN, CREATININE, CA) SEDIMENTATION RATE 2021-03-04 03:29:00 Edilberto [facility] CBC WITH DIFF 2021-03-04 03:29:00 Edilberto [facility] GLYCOSYLATED HEMOGLOBIN 2021-03-04 03:29:[facility] [place] EAR CULTURE 2021-03-04 03:29:00 Edilberto [facility] MRSA / MSSA SCREEN BY 2021-03-04 03:29:00 Edilberto [facility] XR KUB 2021-03-04 03:02:00 Edilberto [facility] XR KUB 2021-03-04 03:02:00 Edilberto [facility] POCT GLUCOSE (AUTOMATED) 2021-03-04 02:38:00 Fide Hernandez [facility] POCT GLUCOSE (AUTOMATED) 2021-03-04 02:38:00 Fide Hernandez [facility] REFERRAL- 2020-10-06 06:01:00 Doctor Unassigned, No [facility] REQUEST/RESPONSE Name Medical Branch XR KUB 2020-04-04 19:19:57 Jessica Collins [facility] CT ABDOMEN PELVIS W 2020-04-04 18:03:22 Jessica Collins [facility] CONTRAST [facility] COMP. METABOLIC PANEL 2020-04-04 16:54:00 Jessica Collins [facility] ([id number]) Medical Branch CBC WITH DIFF 2020-04-04 16:54:00 [facility] [facility] NOTICE OF PRIVACY 2020-04-04 15:52:41 Doctor Unassigned, No [facility] PRACTICES Name Medical Branch Plan of Care Planned Activity Planned Date Details Comments Source Future Scheduled 2023-05-09 Influenza Vaccine (#1) [facility] 00:[facility]00 [code = Influenza Vaccine Me dical Center (#1)] Future Scheduled 2023-05-09 Influenza Vaccine (#1) [facility] 00:00:00 [code = Influenza Vaccine Me dical Center (#1)] Future Scheduled 2022-09-[address] [facility] 00:00:00 (12+) [code = DEPRESSION Med ical Center SCREENING (12+)] Future Scheduled 2022-09-[address] [facility] 00:00:00 (12+) [code = DEPRESSION Med ical Center SCREENING (12+)] Future Scheduled 2010 SHINGLES VACCINES ([address] [facility] 00:00:00 2) [code = SHINGLES Medical Center VACCINES (1 of 2)] Future Scheduled 2010 SHINGLES VACCINES ([address] [facility] 00:00:00 2) [code = SHINGLES Medical Center VACCINES (1 of 2)] Future Scheduled 2005 Lipid panel (procedure) [facility] 00:00:00 [code = 87929584] Medical Ce nter Future Scheduled 2005 Lipid panel (procedure) [facility] 00:00:00 [code = 28602546] Medical Ce nter Future Scheduled 1981 Screening for malignant [facility] 00:00:00 neoplasm of cervix Medical C enter (procedure) [code = 047436722] Future Scheduled 1981 Screening for malignant [facility] 00:00:00 neoplasm of cervix Medical C enter (procedure) [code = 503896392] Future Scheduled 1979 DTAP/TDAP/TD VACCINES ([address] [facility] 00:00:00 - Tdap) [code = Medical Cent er DTAP/TDAP/TD VACCINES (1 - Tdap)] Future Scheduled 1979 DTAP/TDAP/TD VACCINES ([address] [facility] 00:00:00 - Tdap) [code = Medical Cent er DTAP/TDAP/TD VACCINES (1 - Tdap)] Future Scheduled 1978 HEPATITIS C [facility]CRE[facility]ING [facility] 00:00:00 [code = HEPATITIS C Medical Center SCREENING] Future Scheduled 1978 HEPATITIS C [facility] 00:00:00 [code = HEPATITIS C Medical Center SCREENING] Future Scheduled [address] [facility] 00:00:00 virus screening Medical Cent er (procedure) [code = 294509666] Future Scheduled [address] [facility] 00:00:00 virus screening Medical Cent er (procedure) [code = 642725908] Future Scheduled [address] [facility] 00:00:00 Counseling and Screening Med ical Center (12+) [code = Tobacco Cessation Counseling and Screening (12+)] Future Scheduled [address] [facility] 00:00:00 Counseling and Screening Med ical Center (12+) [code = Tobacco Cessation Counseling and Screening (12+)] Future Scheduled 1960 COVID-19 VACCINE (#1) [facility] 00:00:00 [code = COVID-19 VACCINE Med ical Center (#1)] Future Scheduled 1960 COVID-19 VACCINE (#1) [facility] 00:00:00 [code = COVID-19 VACCINE Med ical Center (#1)] Future Scheduled 1960 Screening for malignant [facility] 00:00:00 neoplasm of breast Medical C enter (procedure) [code = 862286451] Future Scheduled 1960 CT Colonography (combo) [facility] 00:00:00 [code = CT Colonography [facility] (combo)] Future Scheduled 1960 Screening for malignant [facility] 00:00:00 neoplasm of colon Medical Ce nter (procedure) [code = 235221831] Future Scheduled 1960 Screening for malignant [facility] 00:00:00 neoplasm of colon Medical Ce nter (procedure) [code = 824715994] Future Scheduled 1960 Screening for malignant [facility] 00:00:00 neoplasm of colon Medical Ce nter (procedure) [code = 630214868] Future Scheduled 1960 Screening for malignant [facility] 00:00:00 neoplasm of colon Medical Ce nter (procedure) [code = 761124823] Future Scheduled 1960 Sigmoidoscopy [code = [facility] S[facility]oidoscopy] Medical Cente r Future Scheduled 1960 Screening for malignant [facility] 00:00:00 neoplasm of breast Medical C enter (procedure) [code = 025936013] Future Scheduled 1960 CT Colonography (combo) [facility] 00:00:00 [code = CT Colonography [facility] (combo)] Future Scheduled 1960 Screening for malignant [facility] 00:00:00 neoplasm of colon Medical Ce nter (procedure) [code = 440928015] Future Scheduled 1960 Screening for malignant [facility] 00:00:00 neoplasm of colon Medical Ce nter (procedure) [code = 264680998] Future Scheduled 1960 Screening for malignant [facility] 00:00:00 neoplasm of colon Medical Ce nter (procedure) [code = 514944394] Future Scheduled 1960 Screening for malignant [facility] 00:00:00 neoplasm of colon Medical Ce nter (procedure) [code = 318647491] Future Scheduled 1960 Sigmoidoscopy [code = [facility] S[facility]oidoscopy] Medical Cente r Encounters Start End Encounter Admission Attending Care Care Encounter Source Date/Time Date/Time Type Type Clinicians Facility Department ID 2021-07-09 Inpatient U ROSANNA HERNANDEZ [facility] [id number] [facility] 04:04:21 FIDE romero [facility] 2023-07-01 2023-07-01 Outpatient SFA [facility] [id number] [place] 10:52:00 10:52:00 1024 F Ben 2023-05-27 2023-05-27 Outpatient R SHIMA, [facility] [id number] Univers 10:53:18 23:59:00 RANDY romero [facility] 2023-04-29 2023-04-29 Outpatient SFA [facility] [id number] [place] 09:57:53 09:57:53 0822 F Ben 2023-03-24 2023-03-24 Outpatient [facility] [id number] [place] 14:58:45 14:58:45 0717 F [place] 2023-01-29 2023-01-29 Outpatient R JAKE, [facility] [id number] Univers 13:40:00 13:40:00 [facility]15 2023-01-15 Transition ORLIN Damon 1.2.840.114 [id number] Univers 00:00:00 00:00:00 of Care Janeth FISHMAN 350.1.13.10 i ty of [place] [id number] [facility] 403 Branch 2023-01-08 2023-01-13 Inpatient X [facility] [id number] Univers 00:04:00 17:15:00 PERFECTO romero o f [facility] 2023-01-08 2023-01-13 [facility] Alina [facility] 1.2.84 0.114 [id number] Univers 00:04:00 17:15:00 Encounter Perfecto Hess 350.1.13.10 ity of Suzanne Smith 4.2.7.2.686 [facility] [id number] [facility] 081 Branch 2021-03-15 2021-03-15 Orders Doctor SKAGGS 1.2.840.114 [id number] Univers 00:00:00 00:00:00 Only Unassigned, SOLITARIO 350.1.13.10 ity of [place] [facility] 4.2.7.2.686 Eduardo as [id number] [facility] 009 Branch 2021-03-15 2021-03-15 Orders Doctor SHARIFA 1.2.840.114 [id number] 00:00:00 00:00:00 Only Unassigned, SOLITARIO 350.1.13.10 [place] [facility] 4.2.7.2.686 [id number] 009 2021-03-07 2021-03-07 Transition Orlin Damon 1.2.840.114 [id number] Univers 00:00:00 00:00:00 of Care Janeth Gatesy 350.1.13.10 i ty [place] [id number] [facility] 403 Branch 2021-03-07 2021-03-07 Transition Orlin Damon 1.2.840.114 [id number] 00:00:00 00:00:00 of Care Janeth Fishman 350.1.13.10 [place] 4.2.7.2.686 [id number] 2021-03-03 2021-03-06 [facility] MohinigroverMarcelle winchester 1.2.840.114 [id number] [facility] 16:42:00 15:52:00 Encounter Fide Jerez 350.1.13.10 ity [facility] 4.2.7.2.686 Eduardo as [id number] [facility] 098 Branch 2021-03-03 2021-03-06 [facility] Marcelle Hernandez 1.2.840.114 [id number] 16:42:00 15:52:00 Encounter Fide Jerez 350.1.13.10 [facility] 4.2.7.2.686 [id number] 2021-03-05 2021-03-05 Surgery Mohinirufus Marcelle 1.2.840.114 [id number] [facility] 13:53:00 16:01:00 Fide Jerez 350.1.13.10 it y [facility] 4.2.7.2.686 Eduardo as [id number] [facility] 103 Branch 2021-03-05 2021-03-05 Surgery Marcelle 1.2.840.114 [id number] 13:53:00 16:01:00 Solitario 350.1.13.10 Hospital 4.2.7.2.686 [id number] [facility] 2021-03-05 2021-03-05 Anesthesia DeSkyler 1.2.840.114 [id number] [facility] 14:09:00 15:23:00 Event Jeremiah Schulte Solitario 350.1.13.10 ity of [facility] 4.2.7.2.686 Eduardo as [id number] [address] 2021-03-05 2021-03-05 Anesthesia DeSkyler 1.2.840.114 [id number] 14:09:00 15:23:00 Event Jeremiah Schulte Solitario 350.1.13.10 [facility] 42.7.2.686 [id number] [facility] 2020-11-13 2020-11-13 Outpatient Ellis BALL [facility] [id number] Univers 13:00:00 13:00:00 SENDIL [facility] 2020-10-17 2020-10-17 Office Marialuisa [facility] 1.2.840.114 [id number] [facility] 10:00:12 13:40:16 Visit Han Lyons 350.1.13.10 ity [facility] [place] Profess[place] [id number] Id [address] 2020-10-17 2020-10-17 Office Marialuisa [facility] 1.2.840.114 [id number] 10:00:12 13:40:16 Visit Han Lyons 350.1.13.10 [place] 4.2.7.2.686 Professio [id number] [address] 2020-10-17 2020-10-17 Outpatient HAN MILLER [facility] [id number] Univers 10:00:00 10:00:00 HAN ELAM [facility] 2020-10-06 2020-10-06 Orders Doctor SKAGGS 1.2.840.114 [id number] Univers 00:00:00 00:00:00 Only Unassigned, SOLITARIO 350.1.13.10 ity of [place] [facility] 4.2.7.2.686 Eduardo as [id number] [facility] 009 Branch 2020-04-04 2020-04-04 Emergency [facility] 1.2.100.741 [id number] Univers 11:03:02 15:12:00 Jessica Lyons 350.1.13.10 i ty of [place] [id number] [facility] 084 Branch 2020-04-04 2020-04-04 Emergency X [facility] ERT [id number] Univers 10:53:00 10:53:00 ity of [facility] 2019-04-20 2019-04-20 Outpatient [facility] [id number] Common 13:00:00 13:00:[address] [facility] 2019-04-09 2019-04-09 Outpatient [facility] [id number] Common 10:46:00 10:46:[address] [facility] 2019-03-17 2019-03-17 Outpatient [facility] [id number] Common 11:16:00 11:16:[address] [facility] 2019-03-09 2019-03-09 Outpatient [facility] [id number] Common 09:17:00 09:17:[address] [facility] 2019-02-25 2019-02-25 Outpatient [facility] [id number] Common 09:30:00 09:30:[address] [facility] 2019-01-22 2019-01-22 Outpatient [facility] [id number] Common 16:32:00 16:32:[address] [facility] 2018-12-25 2018-12-25 Out[facility] [id number] Common 16:16:00 16:16:[address] [facility] 2018-12-11 2018-12-11 Outpatient [facility] [id number] Common 09:32:00 09:32:00 t [facility] [address] [facility] 2018-12-09 2018-12-09 Outpatient Jett [facility] [id number] Common 15:59:00 15:59:00 t [facility] [address] [facility] 2018-12-01 2018-12-01 Outpatient [facility] [id number] Common 16:57:00 16:57:00 t [facility] [address] [facility] 2018-11-24 2018-11-24 Outpatient [place] [id number] Common 14:15:00 14:15:00 t [facility] [address] [facility] Results Test Description Test Time Test Comments Results Result Comments Source POCT GLUCOSE (AUTOMATED) 2023-01-13 17:23:11 Test Item Value Reference Range Interpretation Comme nts POCT GLU (test code = 4492478190) 244 mg/dL 70-110 H Lab Interpretation (test code = 98228-1) Abnormal [facility] GLUCOSE (AUTOMATED)2023-01-13 13:06:45 Test Item Value Reference Range Interpretation Comments POCT GLU (test code = 8689724818) 144 mg/dL 70-110 H Lab Interpretation (test code = Abnormal 63642-0) [facility] GLUCOSE (AUTOMATED)2023-01-13 02:06:41 Test Item Value Reference Range Interpretation Comments POCT GLU (test code = 2271546906) 214 mg/dL 70-110 H Lab Interpretation (test code = Abnormal 74917-4[facility] 21:32:11 Test Item Value Reference Range Interpretation Comments POCT GLU (test code = 0725208651) 286 mg/dL 70-110 H Lab Interpretation (test code = Abnormal 01795-2) [facility] GLUCOSE (AUTOMATED)2023-01-12 16:37:14 Test Item Value Reference Range Interpretation Comments POCT GLU (test code = 8045206019) 167 mg/dL 70-110 H Lab Interpretation (test code = Abnormal 09659-1) [facility] GLUCOSE (AUTOMATED)2023-01-12 13:29:32 Test Item Value Reference Range Interpretation Comments POCT GLU (test code = 3338451282) 136 mg/dL 70-110 H Lab Interpretation (test code = Abnormal 08015-7) [facility] GLUCOSE (AUTOMATED)2023-01-12 01:52:29 Test Item Value Reference Range Interpretation Comments POCT GLU (test code = 7485926030) 190 mg/dL 70-110 H Lab Interpretation (test code = Abnormal 23689-6) [facility] GLUCOSE (AUTOMATED)2023-01-11 21:32:39 Test Item Value Reference Range Interpretation Comments POCT GLU (test code = 6043221618) 235 mg/dL 70-110 H Lab Interpretation (test code = Abnormal 83938-6) [facility] GLUCOSE (AUTOMATED)2023-01-11 17:24:51 Test Item Value Reference Range Interpretation Comments POCT GLU (test code = 8543477563) 180 mg/dL 70-110 H Lab Interpretation (test code = Abnormal 81736-0) [facility] GLUCOSE (AUTOMATED)2023-01-11 13:48:22 Test Item Value Reference Range Interpretation Comments POCT GLU (test code = 1714998780) 174 mg/dL 70-110 H Lab Interpretation (test code = Abnormal 93373-9) [facility] GLUCOSE (AUTOMATED)2023-01-11 01:35:03 Test Item Value Reference Range Interpretation Comments POCT GLU (test code = 4525236876) 190 mg/dL 70-110 H Lab Interpretation (test code = Abnormal 77910-7) [facility] GLUCOSE (AUTOMATED)2023-01-10 22:23:27 Test Item Value Reference Range Interpretation Comments POCT GLU (test code = 3720154487) 154 mg/dL 70-110 H Lab Interpretation (test code = Abnormal 93235-5) [facility] GLUCOSE (AUTOMATED)2023-01-10 19:13:52 Test Item Value Reference Range Interpretation Comments POCT GLU (test code = 6448833916) 104 mg/dL 70-110 Lab Interpretation (test code = Normal 03011-9) [facility] GLUCOSE (AUTOMATED)2023-01-10 16:52:16 Test Item Value Reference Range Interpretation Comments POCT GLU (test code = 2992540599) 108 mg/dL 70-110 Lab Interpretation (test code = Normal 28037-1) [facility] WITH [id number] 13:59:08 Test Item Value Reference Range Interpretation Comments WBC (test code = 9.31 See_Comment [Automated 6690-2) message] The system which generated this result transmitted reference range : 4.30 - 11.10 10*3/?L. The reference range was not used to interpret this result as normal/abnormal . RBC (test code = 4.59 See_Comment [Automated 789-8) message] The system which generated this result [...] RDW-SD (test code = 43.8 fL 39.0-49.9 66231-8) RDW-CV (test code = 13.6 % 12.0-15.5 788-0) PLT (test code = 192 See_Comment [Automated 777-3) message] The system which generated this result transmitted reference range : 166 - 358 10*3/?L. The reference range was not used to interpret this result as normal/abnormal . MPV (test code = 11.0 fL 9.5-12.9 25936-9) NRBC/100 WBC (test 0.0 See_Comment [Automat ed code = 4829665446) message] The system which generated this result transmitted reference range : 0.0 - 10.0 /100 WBCs. The reference range was not used to interpret this result as normal/abnormal . NRBC x10^3 (test code See_Comment [Auto mated = 4751623394) message] The system which generated this result transmitted reference range : 10*3/?L. The reference range was not used to interpret this result as normal/abnormal . GRAN MAT (NEUT) % 82.5 % (test code = 770-8) IMM GRAN % (test code 0.60 % = 1577699921) LYMPH % (test code = 7.7 % 736-9) MONO % (test code = 9.0 % 5905-5) EOS % (test code = 0.0 % 713-8) BASO % (test code = 0.2 % 706-2) GRAN MAT x10^3(ANC) 7.67 10*3/uL 1.88-7.09 H (test code = 5268516358) IMM GRAN x10^3 (test 0.06 10*3/uL 0.00-0.06 code = 5734352325) LYMPH x10^3 (test 0.72 10*3/uL 1.32-3.29 L [...] BANDS (test code = MARKED INCREASED A 5151231133) DOHLE BODIES (test Present A code = 7792-5) Lab Interpretation Abnormal (test code = 04553-4) [facility] 13:16:35 Test Item Value Reference Range Interpretation Comments POCT GLU (test code = 1939455163) 135 mg/dL 70-110 H Lab Interpretation (test code = Abnormal 07640-1) [facility] [id number] 11:43:50 Test Item Value Reference Range Interpretation Comments NT-proBNP (test code = 9430 pg/mL <=125 H 1704041021) SERGIO (test code = SERGIO) Biotin has been reported to cause a negative bias, interpret results relative to patient's use of biotin. Lab Interpretation (test Abnormal code = 57993-1) [facility] METABOLIC PANEL (NA, K, CL, CO2, GLUCOSE, BUN, CREATININE, CA)2023-01-10 11:41:08 Test Item Value Reference Range Interpretation Comments NA (test code = 138 mmol/L 135-145 0525655336) K (test code = 4.5 mmol/L 3.5-5.0 4944523774) CL (test code = 100 mmol/L 98-108 5683329551) CO2 TOTAL (test code = 28 mmol/L 23-31 8106080765) AGAP (test code = 10 2-16 8382625348) BUN (test code = 90 mg/dL 7-23 H 1540178889) GLUCOSE (test code = 132 mg/dL 70-110 H 3227564010) CREATININE (test code = 1.63 mg/dL 0.50-1.04 H 6248256664) CALCIUM (test code = 8.5 mg/dL 8.6-10.6 L 8615210411) eGFR (test code = 32.0 mL/min/1.73m2 4288136768) SERGIO (test code = SERGIO) Association of [...] tests). Lab Interpretation Abnormal (test code = 57005-6) [facility]2023-01-10 01:18:35 Test Item Value Reference Range Interpretation Comments POCT GLU (test code = 3158364718) 153 mg/dL 70-110 H Lab Interpretation (test code = Abnormal 54144-9) [facility] [id number] 00:07:56 Test Item Value Reference Range Interpretation Comments NT-proBNP (test code = 882 pg/mL <=125 H 5132027659) SERGIO (test code = SERGIO) Biotin has been reported to cause a negative bias, interpret results relative to patient's use of biotin. Lab Interpretation (test Abnormal code = 57165-8) [facility] [id number] 00:07:36 Test Item Value Reference Range Interpretation Comments TROPONIN I (test code = 0.081 ng/mL <=0.034 H 0299343203) SERGIO (test code = SERGIO) Reference (Normal) [...] biotin. Lab Interpretation Abnormal (test code = 09827-7) [facility]IP[facility] (08081)(TOTAL CHOLESTEROL, TRIGLYCERIDES, HDL)2023-01-09 23:15:06 Test Item Value Reference Range Interpretation Comments CHOL (test code = 4015452908) 101 mg/dL 120-200 L HDL (test code = 3413103324) 26 mg/dL >=50 L HDLC RATIO (test code = 2620200588) 3.9 <=4.5 TRIG (test code = 4404329283) 319 mg/dL 30-170 H LDL CHOL (test code = 31136-5) 11 mg/dL <=160 VLDL (test code = 7861146854) 64 mg/dL 5-60 H Lab Interpretation (test code = Abnormal 35218-4) [facility] GLUCOSE (AUTOMATED)2023-01-09 21:21:21 Test Item Value Reference Range Interpretation Comments POCT GLU (test code = 4830159600) 230 mg/dL 70-110 H Lab Interpretation (test code = Abnormal 67055-2) [facility] GLUCOSE (AUTOMATED)2023-01-09 17:04:39 Test Item Value Reference Range Interpretation Comments POCT GLU (test code = 125 mg/dL 70-110 H Notifi ed Provider 6448963554) Lab Interpretation (test Abnormal code = 63196-3) [facility] GLUCOSE (AUTOMATED)2023-01-09 12:42:13 Test Item Value Reference Range Interpretation Comments POCT GLU (test code = 0186323942) 102 mg/dL 70-110 Lab Interpretation (test code = Normal 28293-3) [facility] WITH [id number] 12:05:19 Test Item Value Reference Range Interpretation Comments WBC (test code = 12.42 See_Comment H [Automated 7890-2) message] The sy stem which generated this result transmitted reference range : 4.30 - 11.10 10*3/?L. The reference range was not used to interpret this result as normal/abnormal . RBC (test code = 4.42 See_Comment [Automated 559-8) message] The sy stem which generated this [...] RDW-SD (test code = 42.5 fL 39.0-49.9 94171-0) RDW-CV (test code = 13.5 % 12.0-15.5 788-0) PLT (test code = 246 See_Comment [Automated 777-3) message] The sy stem which generated this result transmitted reference range : 166 - 358 10*3/ ?L. The reference r maría was not used to interpret this result as normal/abnormal . MPV (test code = 10.6 fL 9.5-12.9 75298-7) NRBC/100 WBC (test 0.0 See_Comment [Automat ed code = 4653895942) message] The system which generated this result transmitted reference range : 0.0 - 10.0 /100 WBCs. The refer ence range was not u sed to interpret th is result as normal/abnormal . NRBC x10^3 (test code See_Comment [Auto mated = 7801323973) message] The s ystem which generated this result transmitted reference range : 10*3/?L. The reference range was not used to interpret this result as normal/abnormal . SEG % (test code = 77 % 33-76 H 83469-5) LYMPH % (test code = 8 % 14-54 L 91971-9) MONO % (test code = 15 % 0-4 H 37238-6) ANC (test code = 9.36 10*3/uL 1.88-7.09 H 753-4) Lab Interpretation Abnormal (test code = 75855-2) [facility]20[facility] 10:40:06 Test Item Value Reference Range Interpretation Comments MAGNESIUM (test code = 2780566955) 2.2 mg/dL 1.7-2.4 Lab Interpretation (test code = Normal 37447-7) [facility] METABOLIC PANEL (NA, K, CL, CO2, GLUCOSE, BUN, CREATININE, CA)2023-01-09 10:40:05 Test Item Value Reference Range Interpretation Comments NA (test code = 136 mmol/L 135-145 7794295149) K (test code = 4.3 mmol/L 3.5-5.0 7237228551) CL (test code = 102 mmol/L 98-108 8073217142) CO2 TOTAL (test code = 23 mmol/L 23-31 6141561050) AGAP (test code = 11 2-16 1722521188) BUN (test code = 82 mg/dL 7-23 H 2732928306) GLUCOSE (test code = 117 mg/dL 70-110 H 6880810755) CREATININE (test code = 2.10 mg/dL 0.50-1.04 H 6291631570) CALCIUM (test code = 8.4 mg/dL 8.6-10.6 L 8515213776) eGFR (test code = 23.9 mL/min/1.73m2 0755608586) SERGIO (test code = SERGIO) Association of [...] tests). Lab Interpretation Abnormal (test code = 11567-1) [facility] GLUCOSE (AUTOMATED)2023-01-09 01:27:38 Test Item Value Reference Range Interpretation Comments POCT GLU (test code = 6973643846) 189 mg/dL 70-110 H Lab Interpretation (test code = Abnormal 63631-7) [facility] GLUCOSE (AUTOMATED)2023-01-08 22:44:03 Test Item Value Reference Range Interpretation Comments POCT GLU (test code = 6182696695) 206 mg/dL 70-110 H Lab Interpretation (test code = Abnormal 13188-4) [facility] GLUCOSE (AUTOMATED)2023-01-08 17:25:33 Test Item Value Reference Range Interpretation Comments POCT GLU (test code = 1642731940) 141 mg/dL 70-110 H Lab Interpretation (test code = Abnormal 77081-6) [facility] GLUCOSE (AUTOMATED)2023-01-08 13:24:48 Test Item Value Reference Range Interpretation Comments POCT GLU (test code = 4284594380) 111 mg/dL 70-110 H Lab Interpretation (test code = Abnormal 67682-2) [facility] Hospital[facility]cosylated Hemoglobin (A1C)2023-01-08 10:17:45 Test Item Value Reference Range Interpretation Comments HGB A1C (test code = 5.4 % 4.0-5.7 4548-4) SERGIO (test code = SERGIO) Reference RangesNormal: <5.7%Prediabetes: 5.7 - 6.4%Diabetes: > 6.5% Lab Interpretation (test Normal code = 30263-5) [facility] WITH [id number] 06:26:26 Test Item Value Reference Range Interpretation Comments WBC (test code = 8.20 See_Comment [Automated 1990-2) message] The sy stem which generated this result transmitted reference range : 4.30 - 11.10 10*3/?L. The reference range was not used to interpret this result as normal/abnormal . RBC (test code = 4.80 See_Comment [Automated 986-8) message] The sy stem which generated this [...] RDW-SD (test code = 43.6 fL 39.0-49.9 38135-0) RDW-CV (test code = 13.4 % 12.0-15.5 788-0) PLT (test code = 233 See_Comment [Automated 777-3) message] The sy stem which generated this result transmitted reference range : 166 - 358 10*3/ ?L. The reference r maría was not used to interpret this result as normal/abnormal . MPV (test code = 10.6 fL 9.5-12.9 52348-9) NRBC/100 WBC (test 0.0 See_Comment [Automat ed code = 6925238801) message] The system which generated this result transmitted reference range : 0.0 - 10.0 /100 WBCs. The refer ence range was not u sed to interpret th is result as normal/abnormal . NRBC x10^3 (test code See_Comment [Auto mated = 3372125574) message] The s ystem which generated this result transmitted reference range : 10*3/?L. The reference range was not used to interpret this result as normal/abnormal . SEG % (test code = 56 % 33-76 32414-2) BAND % (test code = 32 % 0-1 H 97431-8) LYMPH % (test code = 12 % 14-54 L 36672-7) ANC (test code = 7.21 10*3/uL 1.88-7.09 H 753-4) TOXIC CHANGES (test Present A code = 803-7) PLT ESTIMATE (test Normal Normal code = 9317-9) Lab Interpretation Abnormal (test code = 67648-2) [facility] [id number] 05:57:18 Test Item Value Reference Range Interpretation Comments TROPONIN I (test code = 0.113 ng/mL <=0.034 H 7576640803) SERGIO (test code = SERGIO) Reference (Normal) [...] biotin. Lab Interpretation Abnormal (test code = 65308-4) [facility] [id number] 05:53:56 Test Item Value Reference Range Interpretation Comments NT-proBNP (test code = 912 pg/mL <=125 H 9355931835) SERGIO (test code = SERGIO) Biotin has been reported to cause a negative bias, interpret results relative to patient's use of biotin. Lab Interpretation (test Abnormal code = 87297-0) [facility]. METABOLIC PANEL (59640)2023-01-08 05:45:19 Test Item Value Reference Range Interpretation Comments NA (test code = 135 mmol/L 135-145 3263115923) K (test code = 4.7 mmol/L 3.5-5.0 0773728886) CL (test code = 97 mmol/L 98-108 L 7072639319) CO2 TOTAL (test code = 26 mmol/L 23-31 4439841209) AGAP (test code = 12 2-16 3447395288) BUN (test code = 52 mg/dL 7-23 H 9511524782) GLUCOSE (test code = 125 mg/dL 70-110 H 3014757636) CREATININE (test code = 1.53 mg/dL 0.50-1.04 H 7343562372) TOTAL BILI (test code = 0.5 mg/dL 0.1-1.1 8550862067) CALCIUM (test code = 8.4 mg/dL 8.6-10.6 L 6132279854) T PROTEIN (test code = 7.4 g/dL 6.3-8.2 4414171467) ALBUMIN (test code = 3.6 g/dL 3.5-5.0 6230426942) ALK PHOS (test code = 76 U/L 34-122 0942203762) ALTv (test code = 18 U/L 5-35 1742-6) AST(SGOT) (test code = 42 U/L 13-40 H 1559558921) eGFR (test code = 34.4 mL/min/1.73m2 1336297845) SERGIO (test code = SERGIO) Association of [...] tests). Lab Interpretation Abnormal (test code = 30201-8) [facility], [id number] 05:44:54 Test Item Value Reference Range Interpretation Comments LIPASE (test code = 7181861188) 98 U/L 0-220 Lab Interpretation (test code = Normal 74169-4) [facility]2021-03-06 17:24:16 Test Item Value Reference Range Interpretation Comments POCT GLU (test code = 7676913915) 100 mg/dL 70-110 Lab Interpretation (test code = Normal 94828-9) [facility]2021-03-06 17:24:16 Test Item Value Reference Range Interpretation Comments POCT GLU (test code = 6216296331) 100 mg/dL 70-110 Lab Interpretation (test code = Normal 55944-3) [facility] [id number] 16:58:13FINDINGS/IMPRESSION: The gastrostomy tube terminates in the [...] was used earlier today byfamily. COMPARISON: 04/04/[address] [facility], Radiant Results Inft User - [...] reviewed this study and agree with the abovereport.[facility] [id number] 16:58:13 FINDINGS/IMPRESSION: The gastrostomy tube terminates in the stomach with the balloon in thegastric antrum. The contrast opacifies the stomach, duodenum and proximaljejenum. Preliminary Report Dictated by Resident: Arnold WeinsteinBrito, MD., have reviewed this study and agree with the abovereport.EXAM: XR KUB HISTORY: PEG tube placement Please perform KUB right after injectingOmnipaque contrast through the PEG tube. PEG tube was used earlier today bymily. COMPARISON: 04/04/[address] [facility], Radiant Results Inft User - 03/06/2021 11:59 AM CDT EXAM: XR KUBHISTORY: PEG tube placement Please perform KUB right after injectingOmnipaque contrast through the PEG tube. PEG tube was used earlier today by.COMPARISON: 04/04/2020IMPRESSIONFINDINGS/IMPRESSION:The gastrostomy tube terminates in the stomach with the balloon in thegastric antrum. The contrast opacifies the stomach, duodenum and proximaljejenum.Preliminary Report Dictated by Resident: Arnold Sandoval MD., have reviewed this study and agree with the abovereport.[facility] [id number] 13:29:29 Test Item Value Reference Range Interpretation Comments Ear Culture (test 1+ Skin nannette: Commensal code = 608-0) skin microorganisms only. SERGIO (test code = Bacterial pathogens SERGIO) associated with wound infections were not identified, which include Pseudomonas aeruginosa and Staphylococcus aureus (MRSA or MSSA). [facility] [id number] 13:29:29 Test Item Value Reference Range Interpretation Comments Ear Culture (test 1+ Skin nannette: Commensal code = 608-0) skin microorganisms only. SERGIO (test code = Bacterial pathogens SERGIO) associated with wound infections were not identified, which include Pseudomonas aeruginosa and Staphylococcus aureus (MRSA or MSSA). [facility] GLUCOSE (AUTOMATED)2021-03-06 13:04:33 Test Item Value Reference Range Interpretation Comments POCT GLU (test code = 6512099459) 103 mg/dL 70-110 Lab Interpretation (test code = Normal 04740-2) [facility] GLUCOSE (AUTOMATED)2021-03-06 13:04:33 Test Item Value Reference Range Interpretation Comments POCT GLU (test code = 1350868861) 103 mg/dL 70-110 Lab Interpretation (test code = Normal 93872-5) [facility] METABOLIC PANEL (NA, K, CL, CO2, GLUCOSE, BUN, CREATININE, CA)2021-03-06 11:16:48 Test Item Value Reference Range Interpretation Comments NA (test code = 136 mmol/L 135-145 3241963103) K (test code = 4.6 mmol/L 3.5-5.0 5425244736) CL (test code = 100 mmol/L 98-108 0473262687) CO2 TOTAL (test code = 32 mmol/L 23-31 H 9437537527) AGAP (test code = 2-16 0860500621) BUN (test code = 25 mg/dL 7-23 H 6063664464) GLUCOSE (test code = 111 mg/dL 70-110 H 0746485705) CREATININE (test code = 0.59 mg/dL 0.50-1.04 8918193203) CALCIUM (test code = 8.5 mg/dL 8.6-10.6 L 4301739169) eGFR (test code = mL/min/1.73m2 7653637866) SERGIO (test code = SERGIO) Association of [...] tests). Lab Interpretation Abnormal (test code = 03619-6) [facility] METABOLIC PANEL (NA, K, CL, CO2, GLUCOSE, BUN, CREATININE, CA)2021-03-06 11:16:48 Test Item Value Reference Range Interpretation Comments NA (test code = 136 mmol/L 135-145 8663454612) K (test code = 4.6 mmol/L 3.5-5.0 5480491178) CL (test code = 100 mmol/L 98-108 6801218591) CO2 TOTAL (test code = 32 mmol/L 23-31 H 7806594590) AGAP (test code = 2-16 1827351900) BUN (test code = 25 mg/dL 7-23 H 9018811304) GLUCOSE (test code = 111 mg/dL 70-110 H 8822800846) CREATININE (test code = 0.59 mg/dL 0.50-1.04 7683494429) CALCIUM (test code = 8.5 mg/dL 8.6-10.6 L 0602711240) eGFR (test code = mL/min/1.73m2 3698059515) SERGIO (test code = SERGIO) Association of [...] tests). Lab Interpretation Abnormal (test code = 37558-5) [facility] WITH [id number] 10:49:43 Test Item Value Reference Range Interpretation [...] RDW-SD (test code = 41.3 fL 39.0-49.9 45010-8) RDW-CV (test code = 12.4 % 12.0-15.5 788-0) PLT (test code = See_Comment [Automated 777-3) message] The sy stem which generated this result transmitted reference range : 166 - 358 10*3/ ?L. The reference r maría was not used to interpret this result as normal/abnormal . MPV (test code = 10.5 fL 9.5-12.9 20306-3) NRBC/100 WBC (test See_Comment [Automat ed code = 8048647853) message] The system which generated this result transmitted reference range : 0.0 - 10.0 /100 WBCs. The refer ence range was not u sed to interpret th is result as normal/abnormal . NRBC x10^3 (test code <0.01 See_Comment [Auto mated = 3315384027) message] The s ystem which generated this result transmitted reference range : 10*3/?L. The reference range was not used to interpret this result as normal/abnormal . GRAN MAT (NEUT) % 83.9 % (test code = 770-8) IMM GRAN % (test code 0.40 % = 2427842479) LYMPH % (test code = 9.5 % 736-9) MONO % (test code = 5.9 % 5905-5) EOS % (test code = 0.1 % 713-8) BASO % (test code = 0.2 % 706-2) GRAN MAT x10^3(ANC) 9.91 10*3/uL 1.88-7.09 H (test code = 4917827199) IMM GRAN x10^3 (test 0.05 10*3/uL 0.00-0.06 code = 9919256603) LYMPH x10^3 (test code 1.12 10*3/uL 1.32-3.29 L = 731-0) MONO x10^3 (test code 0.70 10*3/uL 0.33-0.92 = 742-7) EOS x10^3 (test code = <0.03 0.03-0.39 L 711-2) BASO x10^3 (test code <0.03 0.01-0.07 = 704-7) Lab Interpretation Abnormal (test code = 79575-2) [facility] WITH [id number] 10:49:43 Test Item Value Reference Range Interpretation Comments WBC (test code = See_Comment H [Automated 7290-2) message] The sy stem which generated this [...] RDW-SD (test code = 41.3 fL 39.0-49.9 22818-9) RDW-CV (test code = 12.4 % 12.0-15.5 788-0) PLT (test code = See_Comment [Automated 777-3) message] The sy stem which generated this result transmitted reference range : 166 - 358 10*3/ ?L. The reference r maría was not used to interpret this result as normal/abnormal . MPV (test code = 10.5 fL 9.5-12.9 75696-1) NRBC/100 WBC (test See_Comment [Automat ed code = 2441212153) message] The system which generated this result transmitted reference range : 0.0 - 10.0 /100 WBCs. The refer ence range was not u sed to interpret th is result as normal/abnormal . NRBC x10^3 (test code <0.01 See_Comment [Auto mated = 2092163267) message] The s ystem which generated this result transmitted reference range : 10*3/?L. The reference range was not used to interpret this result as normal/abnormal . GRAN MAT (NEUT) % 83.9 % (test code = 770-8) IMM GRAN % (test code 0.40 % = 0040919221) LYMPH % (test code = 9.5 % 736-9) MONO % (test code = 5.9 % 5905-5) EOS % (test code = 0.1 % 713-8) BASO % (test code = 0.2 % 706-2) GRAN MAT x10^3(ANC) 9.91 10*3/uL 1.88-7.09 H (test code = 2232117646) IMM GRAN x10^3 (test 0.05 10*3/uL 0.00-0.06 code = 8026460778) LYMPH x10^3 (test code 1.12 10*3/uL 1.32-3.29 L = 731-0) MONO x10^3 (test code 0.70 10*3/uL 0.33-0.92 = 742-7) EOS x10^3 (test code = <0.03 0.03-0.39 L 711-2) BASO x10^3 (test code <0.03 0.01-0.07 = 704-7) Lab Interpretation Abnormal (test code = 17757-4) [facility] GLUCOSE (AUTOMATED)2021-03-06 02:54:54 Test Item Value Reference Range Interpretation Comments POCT GLU (test code = 9881429852) 177 mg/dL 70-110 H Lab Interpretation (test code = Abnormal 76529-3) [facility] GLUCOSE (AUTOMATED)2021-03-06 02:54:54 Test Item Value Reference Range Interpretation Comments POCT GLU (test code = 6799688994) 177 mg/dL 70-110 H Lab Interpretation (test code = Abnormal 26537-7) [facility] GLUCOSE (AUTOMATED)2021-03-05 21:32:59 Test Item Value Reference Range Interpretation Comments POCT GLU (test code = 1705205679) 121 mg/dL 70-110 H Lab Interpretation (test code = Abnormal 73645-1) [facility] GLUCOSE (AUTOMATED)2021-03-05 21:32:59 Test Item Value Reference Range Interpretation Comments POCT GLU (test code = 1370149615) 121 mg/dL 70-110 H Lab Interpretation (test code = Abnormal 87065-3) [facility] T[facility] Level - Draw within 30 minutes prior to 4TH dose.2021-03-05 17:44:58 Test Item Value Reference Range Interpretation Comments VANCO TROUGH (test code 15.3 ug/mL 10.0-20.0 = 8726684565) SERGIO (test code = SERGIO) Toxic Range: ?>20 ug/mL 15-20 ug/mL is recommended for severe infection or when Vancomycin DALIA is greater than or equal to 2. Lab Interpretation (test Normal code = 68829-3) [facility] Trough Level - Draw within 30 minutes prior to 4TH dose.2021-03-05 17:44:58 Test Item Value Reference Range Interpretation Comments VANCO TROUGH (test code 15.3 ug/mL 10.0-20.0 = 8335957088) SERGIO (test code = SERGIO) Toxic Range: ?>20 ug/mL 15-20 ug/mL is recommended for severe infection or when Vancomycin DALIA is greater than or equal to 2. Lab Interpretation (test Normal code = 23477-0) [facility] GLUCOSE (AUTOMATED)2021-03-05 15:24:59 Test Item Value Reference Range Interpretation Comments POCT GLU (test code = 2588639384) 94 mg/dL 70-110 Lab Interpretation (test code = Normal 32875-8) [facility] GLUCOSE (AUTOMATED)2021-03-05 15:24:59 Test Item Value Reference Range Interpretation Comments POCT GLU (test code = 0775006765) 94 mg/dL 70-110 Lab Interpretation (test code = Normal 38050-8) [facility] GLUCOSE (AUTOMATED)2021-03-05 12:44:06 Test Item Value Reference Range Interpretation Comments POCT GLU (test code = 2147648359) 70 mg/dL 70-110 Lab Interpretation (test code = Normal 71815-7) [facility] GLUCOSE (AUTOMATED)2021-03-05 12:44:06 Test Item Value Reference Range Interpretation Comments POCT GLU (test code = 4892296255) 70 mg/dL 70-110 Lab Interpretation (test code = Normal 54454-8) [facility] METABOLIC PANEL (NA, K, CL, CO2, GLUCOSE, BUN, CREATININE, CA)2021-03-05 07:33:07 Test Item Value Reference Range Interpretation Comments NA (test code = 139 mmol/L 135-145 1267332970) K (test code = 4.4 mmol/L 3.5-5.0 3157996071) CL (test code = 103 mmol/L 98-108 7459218652) CO2 TOTAL (test code = 31 mmol/L 23-31 9751143278) AGAP (test code = 2-16 2833232001) BUN (test code = 25 mg/dL 7-23 H 3679232380) GLUCOSE (test code = 97 mg/dL 70-110 9958551920) CREATININE (test code = 0.59 mg/dL 0.50-1.04 2842370446) CALCIUM (test code = 8.5 mg/dL 8.6-10.6 L 3708329088) eGFR (test code = mL/min/1.73m2 0287817676) SERGIO (test code = SERGIO) Association of [...] tests). Lab Interpretation Abnormal (test code = 92368-1) [facility] METABOLIC PANEL (NA, K, CL, CO2, GLUCOSE, BUN, CREATININE, CA)2021-03-05 07:33:07 Test Item Value Reference Range Interpretation Comments NA (test code = 139 mmol/L 135-145 5047746899) K (test code = 4.4 mmol/L 3.5-5.0 6904560486) CL (test code = 103 mmol/L 98-108 0311293634) CO2 TOTAL (test code = 31 mmol/L 23-31 2398423868) AGAP (test code = 2-16 3085734192) BUN (test code = 25 mg/dL 7-23 H 0013033891) GLUCOSE (test code = 97 mg/dL 70-110 3365178810) CREATININE (test code = 0.59 mg/dL 0.50-1.04 3257445405) CALCIUM (test code = 8.5 mg/dL 8.6-10.6 L 8429785023) eGFR (test code = mL/min/1.73m2 2478124099) SERGIO (test code = SERGIO) Association of [...] tests). Lab Interpretation Abnormal (test code = 75009-9) [facility] WITH [id number] 07:23:45 Test Item Value Reference Range Interpretation Comments WBC (test code = See_Comment [Automated message] 6690-2) The system [employer] generated this result transmitted ref erence range: 4.30 - 1 1.10 10*3/?L. The re ference range was not u sed to interpret this result as normal/abnor mal. RBC (test code = See_Comment [Automated message] 789-8) The system [employer] generated this result transmitted ref erence range: [...] RDW-SD (test code 42.1 fL 39.0-49.9 = 82090-8) RDW-CV (test code 12.6 % 12.0-15.5 = 788-0) PLT (test code = See_Comment [Automated message] 457-3) The system [employer] generated this result transmitted ref erence range: 166 - 35 8 10*3/?L. The re ference range was not u sed to interpret this result as normal/abnor mal. MPV (test code = 10.1 fL 9.5-12.9 07756-9) NRBC/100 WBC (test See_Comment [Automat ed message] code = 9754025180) The [employer] which generated this result transmitted ref erence range: 0.0 - 10 .0 /100 WBCs. The refer ence range was not u sed to interpret this result as normal/abnor mal. NRBC x10^3 (test <0.01 See_Comment [Automated message] code = 7466739013) The [employer] which generated this result transmitted ref erence range: 10*3/?L. The reference range was not used to interpr et this result as normal/abnormal . GRAN MAT (NEUT) % 67.9 % (test code = 770-8) IMM GRAN % (test 0.30 % code = 3627936634) LYMPH % (test code 19.1 % = 736-9) MONO % (test code 8.4 % = 5905-5) EOS % (test code = 3.9 % 713-8) BASO % (test code 0.4 % = 706-2) GRAN MAT 6.42 10*3/uL 1.88-7.09 x10^3(ANC) (test code = 7875847622) IMM GRAN x10^3 0.03 10*3/uL 0.00-0.06 (test code = 0520986551) LYMPH x10^3 (test 1.81 10*3/uL 1.32-3.29 code = 731-0) MONO x10^3 (test 0.80 10*3/uL 0.33-0.92 code = 742-7) EOS x10^3 (test 0.37 10*3/uL 0.03-0.39 code = 711-2) BASO x10^3 (test 0.04 10*3/uL 0.01-0.07 code = 704-7) [facility] WITH [id number] 07:23:45 Test Item Value Reference Range Interpretation Comments WBC (test code = See_Comment [Automated message] 6690-2) The system [employer] generated this result transmitted ref erence range: 4.30 - 1 1.10 10*3/?L. The re ference range was not u sed to interpret this result as normal/abnor mal. RBC (test code = See_Comment [Automated message] 789-8) The system [employer] generated this result transmitted ref erence range: [...] RDW-SD (test code 42.1 fL 39.0-49.9 = 04933-9) RDW-CV (test code 12.6 % 12.0-15.5 = 788-0) PLT (test code = See_Comment [Automated message] 777-3) The system M:[employer] generated this result transmitted ref erence range: 166 - 35 8 10*3/?L. The re ference range was not u sed to interpret this result as normal/abnor mal. MPV (test code = 10.1 fL 9.5-12.9 52066-6) NRBC/100 WBC (test See_Comment [Automat ed message] code = 0731198372) The syste m which generated this result transmitted ref erence range: 0.0 - 10 .0 /100 WBCs. The refer ence range was not u sed to interpret this result as normal/abnor mal. NRBC x10^3 (test <0.01 See_Comment [Automated message] code = 2343629229) The syste m which generated this result transmitted ref erence range: 10*3/?L. The reference range was not used to interpr et this result as normal/abnormal . GRAN MAT (NEUT) % 67.9 % (test code = 770-8) IMM GRAN % (test 0.30 % code = 5896229376) LYMPH % (test code 19.1 % = 736-9) MONO % (test code 8.4 % = 5905-5) EOS % (test code = 3.9 % 713-8) BASO % (test code 0.4 % = 706-2) GRAN MAT 6.42 10*3/uL 1.88-7.09 x10^3(ANC) (test code = 8121703472) IMM GRAN x10^3 0.03 10*3/uL 0.00-0.06 (test code = 4919968060) LYMPH x10^3 (test 1.81 10*3/uL 1.32-3.29 code = 731-0) MONO x10^3 (test 0.80 10*3/uL 0.33-0.92 code = 742-7) EOS x10^3 (test 0.37 10*3/uL 0.03-0.39 code = 711-2) BASO x10^3 (test 0.04 10*3/uL 0.01-0.07 code = 704-7) [facility] GLUCOSE (AUTOMATED)2021-03-05 01:43:32 Test Item Value Reference Range Interpretation Comments POCT GLU (test code = 0307875089) 109 mg/dL 70-110 Lab Interpretation (test code = Normal 26353-8) [facility] GLUCOSE (AUTOMATED)2021-03-05 01:43:32 Test Item Value Reference Range Interpretation Comments POCT GLU (test code = 2662510133) 109 mg/dL 70-110 Lab Interpretation (test code = Normal 49335-1) [facility] GLUCOSE (AUTOMATED)2021-03-04 22:19:26 Test Item Value Reference Range Interpretation Comments POCT GLU (test code = 2887092514) 103 mg/dL 70-110 Lab Interpretation (test code = Normal 15889-1) [facility] GLUCOSE (AUTOMATED)2021-03-04 22:19:26 Test Item Value Reference Range Interpretation Comments POCT GLU (test code = 0177331225) 103 mg/dL 70-110 Lab Interpretation (test code = Normal 87880-0) [facility] [id number] 19:00:52 No radiographic evidence of acute cardiopulmonary [...] reviewed this study and agree with the abovereport.[facility] [id number] 19:00:52 No radiographic evidence of acute cardiopulmonary [...] reviewed this study and agree with the abovereport.[facility]MR[facility] / MSSA SCREEN BY IGOR [id number] 17:00:29 Test Item Value Reference Range Interpretation Comments MSSA Screen by PCR, Positive Negative A Nares (test code = 55966-7) MRSA/MSSA Positive? Yes No A (test code = 3909530368) SERGIO (test code = SERGIO) A positive test result does not necessarily indicate the presence of viable organism. Lab Interpretation (test Abnormal code = 17761-5) [facility] MSSA SCREEN BY PCR, [id number] 17:00:29 Test Item Value Reference Range Interpretation Comments MSSA Screen by PCR, Positive Negative A Nares (test code = 64332-0) MRSA/MSSA Positive? Yes No A (test code = 2941124246) SERGIO (test code = SERGIO) A positive test result does not necessarily indicate the presence of viable organism. Lab Interpretation (test Abnormal code = 07734-0) [facility] GLUCOSE (AUTOMATED)2021-03-04 17:00:19 Test Item Value Reference Range Interpretation Comments POCT GLU (test code = 2017406846) 81 mg/dL 70-110 Lab Interpretation (test code = Normal 93275-5) [facility] GLUCOSE (AUTOMATED)2021-03-04 17:00:19 Test Item Value Reference Range Interpretation Comments POCT GLU (test code = 1049823111) 81 mg/dL 70-110 Lab Interpretation (test code = Normal 81906-6) [facility]-REACTIVE [id number] 13:19:28 Test Item Value Reference Range Interpretation Comments CRP (test code = 3258560189) 10.8 mg/dL <0.8 H Lab Interpretation (test code = Abnormal 01107-0) [facility]-REACTIVE [id number] 13:19:28 Test Item Value Reference Range Interpretation Comments CRP (test code = 3747389656) 10.8 mg/dL <0.8 H Lab Interpretation (test code = Abnormal 83751-2) [facility] GLUCOSE (AUTOMATED)2021-03-04 12:23:06 Test Item Value Reference Range Interpretation Comments POCT GLU (test code = 1787305945) 81 mg/dL 70-110 Lab Interpretation (test code = Normal 03071-2) [facility] GLUCOSE (AUTOMATED)2021-03-04 12:23:06 Test Item Value Reference Range Interpretation Comments POCT GLU (test code = 2324015588) 81 mg/dL 70-110 Lab Interpretation (test code = Normal 10812-5) [facility] GLUCOSE (AUTOMATED)2021-03-04 04:44:31 Test Item Value Reference Range Interpretation Comments POCT GLU (test code = 8548501481) 72 mg/dL 70-110 Lab Interpretation (test code = Normal 24718-6) [facility] GLUCOSE (AUTOMATED)2021-03-04 04:44:31 Test Item Value Reference Range Interpretation Comments POCT GLU (test code = 8762206082) 72 mg/dL 70-110 Lab Interpretation (test code = Normal 26089-4) [facility] [id number] 04:36:06 Test Item Value Reference Range Interpretation Comments ESR (test code = See_Comment H [Automated message] 5391863861) The system [employer] generated this result transmitted ref erence range: 0 - 20 m m/HR. The reference r maría was not used to interpret this result as normal/abnor mal. Lab Interpretation (test Abnormal code = 88177-0) [facility] [id number] 04:36:06 Test Item Value Reference Range Interpretation Comments ESR (test code = See_Comment H [Automated message] 1069478289) The system [employer] generated this result transmitted ref erence range: 0 - 20 m m/HR. The reference r maría was not used to interpret this result as normal/abnor mal. Lab Interpretation (test Abnormal code = 22820-7) [facility] METABOLIC PANEL (NA, K, CL, CO2, GLUCOSE, BUN, CREATININE, CA)2021-03-04 04:07:28 Test Item Value Reference Range Interpretation Comments NA (test code = 137 mmol/L 135-145 6364230609) K (test code = 3.8 mmol/L 3.5-5.0 6936823819) CL (test code = 104 mmol/L 98-108 3272117409) CO2 TOTAL (test code = 20 mmol/L 23-31 L 1228282085) AGAP (test code = 2-16 6413545740) BUN (test code = 18 mg/dL 7-23 2624925107) GLUCOSE (test code = 56 mg/dL 70-110 L 0184035943) CREATININE (test code = 0.45 mg/dL 0.50-1.04 L 1471120533) CALCIUM (test code = 7.3 mg/dL 8.6-10.6 L 9751618468) eGFR (test code = mL/min/1.73m2 9759714951) SERGIO (test code = SERGIO) Association of [...] tests). Lab Interpretation Abnormal (test code = 53077-1) [facility]:07:28 Test Item Value Reference Range Interpretation Comments MAGNESIUM (test code = 1213616467) 1.3 mg/dL 1.7-2.4 L Lab Interpretation (test code = Abnormal 33236-4) [facility]OLIC PAN[facility] (NA, K, CL, CO2, GLUCOSE, BUN, CREATININE, [place])2021-03-04 04:07:28 Test Item Value Reference Range Interpretation Comments NA (test code = 137 mmol/L 135-145 7022281675) K (test code = 3.8 mmol/L 3.5-5.0 5358950217) CL (test code = 104 mmol/L 98-108 1984071168) CO2 TOTAL (test code = 20 mmol/L 23-31 L 9348442297) AGAP (test code = 2-16 2427523496) BUN (test code = 18 mg/dL 7-23 4707600920) GLUCOSE (test code = 56 mg/dL 70-110 L 6081912205) CREATININE (test code = 0.45 mg/dL 0.50-1.04 L 2635965362) CALCIUM (test code = 7.3 mg/dL 8.6-10.6 L 9051829349) eGFR (test code = mL/min/1.73m2 5143913579) SERGIO (test code = SERGIO) Association of [...] tests). Lab Interpretation Abnormal (test code = 88092-4) [facility]2021-06-27 04:07:28 Test Item Value Reference Range Interpretation Comments MAGNESIUM (test code = 2309420181) 1.3 mg/dL 1.7-2.4 L Lab Interpretation (test code = Abnormal 45519-2) [facility] (A1C)2021-03-04 04:00:00 Test Item Value Reference Range Interpretation Comments HGB A1C (test code = 5.0 % 4.0-5.7 4548-4) SERGIO (test code = SERGIO) Reference RangesNormal: <5.7%Prediabetes: 5.7 - 6.4%Diabetes: > 6.5% Lab Interpretation (test Normal code = 57112-3) [facility]A1C)2021-03-04 04:00:00 Test Item Value Reference Range Interpretation Comments HGB A1C (test code = 5.0 % 4.0-5.7 4548-4) SERGIO (test code = SERGIO) Reference RangesNormal: <5.7%Prediabetes: 5.7 - 6.4%Diabetes: > 6.5% Lab Interpretation (test Normal code = 44900-5) [facility] WITH [id number] 03:48:43 Test Item Value Reference Range Interpretation Comments WBC (test code = See_Comment [Automated 9638-2) message] The sy stem which generated this result transmitted reference range : 4.30 - 11.10 10*3/?L. The reference range was not used to interpret this result as normal/abnormal . RBC (test code = See_Comment L [Automated 369-8) message] The sy stem which generated this [...] RDW-SD (test code = 42.2 fL 39.0-49.9 62762-8) RDW-CV (test code = 12.4 % 12.0-15.5 788-0) PLT (test code = See_Comment [Automated 777-3) message] The sy stem which generated this result transmitted reference range : 166 - 358 10*3/ ?L. The reference r maría was not used to interpret this result as normal/abnormal . MPV (test code = 10.1 fL 9.5-12.9 76788-8) NRBC/100 WBC (test See_Comment [Automat ed code = 1569935555) message] The system which generated this result transmitted reference range : 0.0 - 10.0 /100 WBCs. The refer ence range was not u sed to interpret th is result as normal/abnormal . NRBC x10^3 (test code <0.01 See_Comment [Auto mated = 1898686569) message] The s ystem which generated this result transmitted reference range : 10*3/?L. The reference range was not used to interpret this result as normal/abnormal . GRAN MAT (NEUT) % 83.9 % (test code = 770-8) IMM GRAN % (test code 0.40 % = 9172693234) LYMPH % (test code = 9.6 % 736-9) MONO % (test code = 5.6 % 5905-5) EOS % (test code = 0.2 % 713-8) BASO % (test code = 0.3 % 706-2) GRAN MAT x10^3(ANC) 8.78 10*3/uL 1.88-7.09 H (test code = 0491918702) IMM GRAN x10^3 (test 0.04 10*3/uL 0.00-0.06 code = 8233537647) LYMPH x10^3 (test code 1.00 10*3/uL 1.32-3.29 L = 731-0) MONO x10^3 (test code 0.59 10*3/uL 0.33-0.92 = 742-7) EOS x10^3 (test code = <0.03 0.03-0.39 L 711-2) BASO x10^3 (test code 0.03 10*3/uL 0.01-0.07 = 704-7) Lab Interpretation Abnormal (test code = 81791-9) [facility] WITH [id number] 03:48:43 Test Item Value Reference Range Interpretation [...] RDW-SD (test code = 42.2 fL 39.0-49.9 58142-1) RDW-CV (test code = 12.4 % 12.0-15.5 788-0) PLT (test code = See_Comment [Automated 777-3) message] The sy stem which generated this result transmitted reference range : 166 - 358 10*3/ ?L. The reference r maría was not used to interpret this result as normal/abnormal . MPV (test code = 10.1 fL 9.5-12.9 61113-1) NRBC/100 WBC (test See_Comment [Automat ed code = 0667302786) message] The system which generated this result transmitted reference range : 0.0 - 10.0 /100 WBCs. The refer ence range was not u sed to interpret th is result as normal/abnormal . NRBC x10^3 (test code <0.01 See_Comment [Auto mated = 5967103298) message] The s ystem which generated this result transmitted reference range : 10*3/?L. The reference range was not used to interpret this result as normal/abnormal . GRAN MAT (NEUT) % 83.9 % (test code = 770-8) IMM GRAN % (test code 0.40 % = 7949832273) LYMPH % (test code = 9.6 % 736-9) MONO % (test code = 5.6 % 5905-5) EOS % (test code = 0.2 % 713-8) BASO % (test code = 0.3 % 706-2) GRAN MAT x10^3(ANC) 8.78 10*3/uL 1.88-7.09 H (test code = 3754149434) IMM GRAN x10^3 (test 0.04 10*3/uL 0.00-0.06 code = 3076565006) LYMPH x10^3 (test code 1.00 10*3/uL 1.32-3.29 L = 731-0) MONO x10^3 (test code 0.59 10*3/uL 0.33-0.92 = 742-7) EOS x10^3 (test code = <0.03 0.03-0.39 L 711-2) BASO x10^3 (test code 0.03 10*3/uL 0.01-0.07 = 704-7) Lab Interpretation Abnormal (test code = 95527-8) [facility] GLUCOSE (AUTOMATED)2021-03-04 02:39:42 Test Item Value Reference Range Interpretation Comments POCT GLU (test code = 9496532264) 68 mg/dL 70-110 L Lab Interpretation (test code = Abnormal 64309-1) [facility] GLUCOSE (AUTOMATED)2021-03-04 02:39:42 Test Item Value Reference Range Interpretation Comments POCT GLU (test code = 9446552072) 68 mg/dL 70-110 L Lab Interpretation (test code = Abnormal 11838-6) [facility] [id number] 19:24:31HISTORY: Replaced G- tube. FINDINGS: Portable AP [...] tube appears to be in good position. [facility], Radiant Results Inft User - 04/04/2020 2:25 [...] Gastrostomy tube appears to be in good position.[facility]EL[facility]AST 2020-04-04 18:17:33CT Abdomen [...] unknown etiology.Whole body bone scan imaging suggested. [facility], Radiant Results Inft User - [...] of unknown etiology.Whole body bone scan imaging suggested.[facility]. METABOLIC PANEL (19148)2020-04-04 17:13:00 Test Item Value Reference Range Interpretation Comments NA (test code = 136 mmol/L 135-145 4241105846) K (test code = 4.2 mmol/L 3.5-5 1424377099) CL (test code = 102 mmol/L 98-108 8605732517) CO2 TOTAL (test code = 29 mmol/L 23-31 7013238204) AGAP (test code = 2-16 1065088718) BUN (test code = 25 mg/dL 7-23 H 6012848835) GLUCOSE (test code = 99 mg/dL 70-110 7607498471) CREATININE (test code = 0.70 mg/dL 0.5-1.04 6540481286) TOTAL BILI (test code = 0.6 mg/dL 0.1-1.6 6164438909) CALCIUM (test code = 9.7 mg/dL 8.6-10.6 2760004395) T PROTEIN (test code = 7.8 g/dL 6.3-8.2 7371105540) ALBUMIN (test code = 3.9 g/dL 3.5-5 0639789480) ALK PHOS (test code = 77 U/L 34-122 1752803854) ALTv (test code = 10 U/L 5-35 1742-6) AST(SGOT) (test code = 24 U/L 13-40 1967629337) eGFR Calculation mL/min/1.73m2 (Non-) (test code = 0957286480) eGFR Calculation mL/min/1.73m2 () (test code = 9358651672) SERGIO (test code = SERGIO) Association of [...] tests). Lab Interpretation Abnormal (test code = 36156-3) [facility] WITH [id number] 17:06:00 Test Item Value Reference Range Interpretation Comments WBC (test code = See_Comment [Automated message] 6690-2) The system [employer] generated this result transmitted ref erence range: 4.30 - 1 1.10 10*3/?L. The re ference range was not u sed to interpret this result as normal/abnor mal. RBC (test code = See_Comment [Automated message] 789-8) The system [employer] generated this result transmitted ref erence range: [...] RDW-SD (test code 45.1 fL 39-49.9 = 68440-2) RDW-CV (test code 13.4 % 12-15.5 = 788-0) PLT (test code = See_Comment [Automated message] 777-3) The system M:Metric[employer] h generated this result transmitted ref erence range: 166 - 35 8 10*3/?L. The re ference range was not u sed to interpret this result as normal/abnor mal. MPV (test code = 11.1 fL 9.5-12.9 26583-2) NRBC/100 WBC (test See_Comment [Automat ed message] code = 5564670177) The syste m which generated this result transmitted ref erence range: 0.0 - 10 .0 /100 WBCs. The refer ence range was not u sed to interpret this result as normal/abnor mal. NRBC x10^3 (test <0.01 See_Comment [Automated message] code = 0358676308) The syste m which generated this result transmitted ref erence range: 10*3/?L. The reference range was not used to interpr et this result as normal/abnormal . GRAN MAT (NEUT) % 69.1 % (test code = 770-8) IMM GRAN % (test 0.70 % code = 3369831112) LYMPH % (test code 20.0 % = 736-9) MONO % (test code 6.0 % = 5905-5) EOS % (test code = 3.7 % 713-8) BASO % (test code 0.5 % = 706-2) GRAN MAT 5.54 10*3/uL 1.88-7.09 x10^3(ANC) (test code = 7987497370) IMM GRAN x10^3 0.06 10*3/uL 0-0.06 (test code = 7351579956) LYMPH x10^3 (test 1.61 10*3/uL 1.32-3.29 code = 731-0) MONO x10^3 (test 0.48 10*3/uL 0.33-0.92 code = 742-7) EOS x10^3 (test 0.30 10*3/uL 0.03-0.39 code = 711-2) BASO x10^3 (test 0.04 10*3/uL 0.01-0.07 code = 704-7) [facility]"
--- NOTE | 2023-07-16 12:07 | RAD REPORT ---
EXAM DESCRIPTION: RAD - ENTEROSTOMY TUBE CHECK W/CONTR - 07/16/2023 11:52 am CLINICAL HISTORY: PEG placement COMPARISON: ENTEROSTOMY TUBE CHECK W/CONTR dated 09/20/2020 TECHNIQUE: Single AP view of the abdomen. FINDINGS: Nonobstructive bowel gas pattern. No air-fluid levels, free air, or pneumatosis. No suspic ious calcifications. Contrast administered through the gastrostomy tube opacifies the region of the antrum through the sec ond part of duodenum. No evidence of extraluminal contrast. No significant bony abnormality. IMPRESSION: Satisfactory positioning of the PEG tube.
--- NOTE | 2023-07-16 12:16 | ER ---
Nurse's Notes [facility] Name: Juana Navarro Age: 63 yrs Sex: Female : 1960 Arrival Date: 07/16/2023 Time: 11:19 Bed 13 Private MD: Diagnosis: PEG tube dislodged Presentation: 07/16 11:22 Chief complaint: EMS states: toned out to home by daughter, G-tube came out. eh3 Coronavirus screen: Vaccine status: Patient reports receiving the 2nd dose of the covid vaccine. Ebola Screen: No symptoms or risks identified at this time. Risk Assessment: Do you want to hurt yourself or someone else? Patient reports no desire to harm self or others. Onset of symptoms was July 16, 2023. 11: Method Of Arrival: EMS: [facility] : Acuity: DAVID 3 3 11:25 Initial Sepsis Screen: Does the patient meet any 2 criteria? No. Patient's initial 3 sepsis screen is negative. Does the patient have a suspected source of infection? Yes: Skin breakdown/wound. Triage Assessment: 11:23 General: Appears in no apparent distress. comfortable, Behavior is calm, cooperative, eh3 appropriate for age. Pain: Denies pain. Neuro: Level of Consciousness is awake, alert, Oriented to person. Cardiovascular: Capillary refill < 3 seconds Patient's skin is warm and dry. Respiratory: Airway is patent Respiratory effort is even, unlabored, Respiratory pattern is regular, symmetrical. GI: Abdomen is round non-distended, PEG tube Site reddened. Small amount of bleeding at insertion site. Derm: Skin is pink, warm \T\ dry. Decubitus located on sacrum is draining to wound vac. 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 eh3 Historical: - PMHx: 11: bed bound; CVA; Diabetes - NIDDM; G Tube; Hypertension; nonverbal; NPO; eh3 - PSHx: : Frandy BKA; G tube placement; eh3 - Immunization history:: Adult Immunizations up to date. - Social history:: Smoking status: unknown. Screenin: [facility] ED Fall Risk Assessment (Adult) Score/Fall Risk Level 0 - 2 = Low Risk. Abuse eh3 screen: Denies threats or abuse. Denies injuries from another. Nutritional screening: No deficits noted. Tuberculosis screening: No symptoms or risk factors identified. Assessment: 11:25 Reassessment: No changes from previously documented assessment. See triage assessment. 3 12:00 Reassessment: Patient appears in no apparent distress at this time. Patient and/or eh3 family updated on plan of care and expected duration. Pain level reassessed. Pt alert, oriented x 1, equal unlabored respirations, skin warm/dry/pink. Vital Signs: 11:25 BP 126 / 65; Pulse 62; Resp 16; Temp 98.5(O); Pulse Ox 100% on R/A; eh3 12:00 BP 142 / 93; Pulse 63; Resp 18; Pulse Ox 98% on R/A; 3 ED Course: 11:22 Patient arrived in ED. 3 11:22 Pedro Eugene DO is Attending Physician. ms3 11:23 Triage completed. 3 11:23 Arm band placed on. 3 11:25 Patient has correct armband on for positive identification. Bed in low position. Call 3 light in reach. Side rails up X2. Provided Education on: use of call cespedes. Pulse ox on. NIBP on. 11:26 Liz Powell, RN is Primary Nurse. 3 11:30 Assisted provider with insertion of PEG tube, pt tolerated well, awaiting x-ray eh3 confirmation of placement. Dressed with gauze and tape. 11:54 PEG Tube Check w/contrast In Process Unspecified. EDMS 12:46 Patient did not have IV access during this emergency room visit. 3 Administered Medications: No medications were administered Medication: 11:44 VIS not applicable for this client. 3 Outcome: 12:15 Discharge ordered by . ms3 12:46 Discharged to home via ambulance, 3 12:46 Condition: stable 12:46 Discharge instructions given to patient, EMS, Instructed on discharge instructions, follow up and referral plans. Demonstrated understanding of instructions, follow-up care, 12:47 Patient left the ED. 3 Signatures: Dispatcher [employer] EDMS Pedro Eugene DO DO ms3 Liz Powell, RN RN 3 Corrections: (The following items were deleted from the chart) 11:23 11:23 PMHx: NPO; 3 eh3 11:23 11:23 PMHx: NPO; 3 3 11: 11:23 Derm: Skin is pink, warm \T\ dry. eh3 3 11:28 11:23 Derm: Skin is pink, warm \T\ dry. 3 3 11:43 11:30 insertion of PEG tube, pt tolerated well, awaiting x-ray confirmation of eh3 placement eh3
--- NOTE | 2023-07-16 12:16 | EDPHYS ---
Physician Documentation [facility] Name: Juana Navarro Age: 63 yrs Sex: Female : 1960 Arrival Date: 07/16/2023 Time: 11:19 Bed 13 Private MD: ED Physician Pedro Eugene HPI: 07/16 11:31 This 63 yrs old Female presents to ER via EMS with complaints of Problem With ms3 Feeding Tube. 11:31 63-year-old female with past medical history of CVA, diabetes, hypertension, nonverbal ms3 presents via [place] [facility] status post PEG tube falling out at home. Patient is nonverbal so HPI limited. Historical: - PMHx: 11:23 bed bound; CVA; Diabetes - NIDDM; G Tube; Hypertension; nonverbal; NPO; eh3 - PSHx: 11:23 Frandy BKA; G tube placement; eh3 - Immunization history:: Adult Immunizations up to date. - Social history:: Smoking status: unknown. ROS: 11:31 Abdomen/GI: Positive for PEG tube out, ms3 11:39 Unable to obtain ROS due to Nonverbal, ms3 Exam: 11:39 Constitutional: This is a well developed, well nourished patient who is awake, alert, ms3 and in no acute distress. Head/Face: Normocephalic, atraumatic. Cardiovascular: Regular rate and rhythm with a normal S1 and S2. No gallops, murmurs, or rubs. Normal PMI, no JVD. No pulse deficits. Respiratory: Lungs have equal breath sounds bilaterally, clear to auscultation and percussion. No rales, rhonchi or wheezes noted. No increased work of breathing, no retractions or nasal flaring. 11:39 Abdomen/GI: Inspection: abdomen appears normal, Bowel sounds: normal, Palpation: abdomen is soft and non-tender, Open stoma with granulation tissue present, Vital Signs: 11:25 BP 126 / 65; Pulse 62; Resp 16; Temp 98.5(O); Pulse Ox 100% on R/A; eh3 12:00 BP 142 / 93; Pulse 63; Resp 18; Pulse Ox 98% on R/A; eh3 Procedures: 11:39 G-tube placement: a 20 Irish catheter was placed, by the ED physician, Pedro Eugene DO. ms3 MDM: 11:22 Patient medically screened. ms3 11:41 Differential Diagnosis PEG tube dislodged. ms3 12:15 Data reviewed: vital signs, nurses notes, radiologic studies, and as a result, I will ms3 discharge patient. Independent interpretation of the following test(s) in the Emergency Department X-Ray: My interpretation is X-ray of KUB with contrast images reviewed showing PEG tube in place. Historians other than the Patient: EMS: .. Care significantly affected by the following chronic conditions: Hypertension. ED course: Discussed case with patient's daughter. Discussed with her daughter PEG tube replaced in position. Discussed discharge with patient's daughter and she understands and agrees with plan. 07/16 11:23 Order name: PEG Tube Check w/contrast; Complete Time: 12:12 ms3 Administered Medications: No medications were administered Disposition: 17:25 Chart complete. ms3 Disposition Summary: 07/16/23 12:15 Discharge Ordered Notes: Location: Home ms3 Condition: Stable ms3 Diagnosis - PEG tube dislodged ms3 Followup: ms3 - With: Private Physician - When: 1 - 2 days - Reason: Recheck today's complaints Discharge Instructions: - Discharge Summary Sheet ms3 - PEG Tube Home Guide, [id number] ms3 - PEG Tube Home Guide ms3 Forms: - Medication Reconciliation Form ms3 - Thank You Letter ms3 - Antibiotic Education ms3 - Prescription Opioid Use ms3 - Patient Portal Instructions ms3 - Leadership Thank You Letter ms3 Signatures: Dispatcher [employer] EDMS Pedro Eugene DO DO ms3 Liz Powell RN RN 3 Corrections: (The following items were deleted from the chart) 11:23 11:23 PMHx: NPO; 3 eh3 11:23 11:23 PMHx: NPO; 3 3 11:39 11:31 Constitutional: Negative for fever, and chills. ms3 ms3
[2023-07-16 12:52] VITALS: TEMP 98.5
[2023-07-16 12:53] VITALS: BP 142/93; O2SAT 98
== END 2023-07-16 12:47 | disposition home or self-care (01) ==
LOC: ER 11:19
PROC: 0D20XUZ Change Feeding Device in Upper Intestinal Tract, External Approach (ICD-10-PCS; principal; 2023-07-16)
DX: Z43.1 Encounter for attention to gastrostomy (principal)
CPT/HCPCS: 49465; 99283

== ENCOUNTER 2024-02-10 12:27 | Emergency (ER) | payer OTHER ==
--- NOTE | 2024-02-10 13:42 | RAD REPORT ---
EXAM DESCRIPTION: CT - Head C Spine Mpr Wo Con - 02/10/2024 1:27 pm CLINICAL HISTORY: Head and neck injury status post fall. Head and neck pain COMPARISON: 2016 TECHNIQUE: Computed axial tomography of the head and cervical spine was obtained. Sagittal and coronal reconstruction was performed. All CT scans are performed using dose optimization technique as appropriate and may include automated exposure control or mA/KV adjustment according to patient size. FINDINGS: Left frontal scalp hematoma An intracranial bleed is not seen. The ventricles are normal in caliber. Moderate low-density areas within periventricular, subcortical white matter probably ischemic changes secondary small vessel disease. Bold lacunar infarction left basal ganglia. Cerebral atrophy An extra-axial fluid collection is not noted. Fluid within the visualized sinuses and mastoids is not seen A cervical fracture is not visualized. No dislocation is noted. IMPRESSION: No acute intracranial abnormality is seen. A cervical fracture is not visualized. If the patient continues to have symptoms to suggest intracranial /spinal cord pathology then MRI wou ld be recommended
[2024-02-10] MEDS ORDERED: ACETAMINOPHEN 160 MG/5 ML UCUP ONE (14:05)
--- NOTE | 2024-02-10 14:09 | ER ---
Nurse's Notes [facility] Name: Juana Navarro Age: 63 yrs Sex: Female : 1960 Arrival Date: 02/10/2024 Time: 12:27 Bed 15 Private MD: Diagnosis: Crushing injury of head, part unspecified Presentation: 02/09 12:47 Chief complaint: EMS states: FALL FROM WHEELCHAIR. Coronavirus screen: At this time, bp the client does not indicate any symptoms associated with coronavirus-19. Ebola Screen: No symptoms or risks identified at this time. Initial Sepsis Screen: Does the patient meet any 2 criteria? No. Patient's initial sepsis screen is negative. Does the patient have a suspected source of infection? No. Patient's initial sepsis screen is negative. Risk Assessment: Do you want to hurt yourself or someone else? Patient reports no desire to harm self or others. Onset of symptoms is unknown. 12:47 Method Of Arrival: EMS: [facility] bp 12:47 Acuity: DAVID 4 bp Triage Assessment: 12:48 General: Appears in no apparent distress. Behavior is AT BASELINE. Pain: Unable to use bp pain scale. Does not appear to understand pain scale. EENT:. Neuro: NONVERBAL AT BASELINE. Historical: - Allergies: 12:48 No Known Allergies; bp - PMHx: 12:48 bed bound; CVA; Diabetes - NIDDM; G Tube; Hypertension; nonverbal; NPO; bp - PSHx: 12:48 Frandy BKA; G tube placement; bp - Immunization history:: Adult Immunizations unknown. - Infectious Disease History:: Denies. - Social history:: Smoking status: unknown. Screenin:30 [facility] ED Fall Risk Assessment (Adult) History of falling in the last 3 months, bp including since admission No falls in past 3 months (0 pts). Abuse screen: Denies threats or abuse. Denies injuries from another. Nutritional screening: No deficits noted. Tuberculosis screening: No symptoms or risk factors identified. Assessment: 12:50 General: Behavior is AT BASELINE. bp 14:30 Reassessment: DC HOME VIA W/C WITH FAMILY. bp Vital Signs: 12:47 BP 104 / 45; Pulse 75; Resp 16; Temp 98; Pulse Ox 97% ; bp 14:30 BP 131 / 79; Pulse 73; Resp 16; Pulse Ox 96% ; bp ED Course: 12:31 Patient arrived in ED. as6 12:47 Diego Irizarry, RN is Primary Nurse. bp 12:48 Triage completed. bp 12:48 Arm band placed on. bp 12:50 Gerardo Dave MD is Attending Physician. bp 13:27 CT Head C Spine In Process Unspecified. EDMS 14:30 Patient has correct armband on for positive identification. Provided Education on: N/A. bp 14:30 No provider procedures requiring assistance completed. Patient did not have IV access bp during this emergency room visit. Administered Medications: 13:45 Drug: Tylenol Feeding Tube 650 mg Feeding Tube once; not to exceed 1,000 milligrams bp Route: Feeding Tube; Medication: 14:30 VIS not applicable for this client. bp Outcome: 14:09 Discharge ordered by . ec2 14:30 Discharged to home via wheelchair, bp 14:30 Condition: stable 14:30 Discharge instructions given to family, Instructed on discharge instructions, follow up and referral plans. Demonstrated understanding of instructions, follow-up care, 14:39 Patient left the ED. bp Signatures: Dispatcher [employer] EDOH Diego Irizarry, RN RN bp Long Ann, POLLY RN as6 Gerardo Dave MD MD ec2
--- NOTE | 2024-02-10 14:09 | EDPHYS ---
Physician Documentation [facility] Name: Juana Navarro Age: 63 yrs Sex: Female : 1960 Arrival Date: 02/10/2024 Time: 12:27 Bed 15 Private MD: ED Physician Gerardo Dave HPI: 02/09 13:15 This 63 yrs old Female presents to ER via EMS with complaints of GLF. ec2 13:15 Patient arrives today after a ground-level fall. Family was adjusting the patient ec2 subsequently she had fallen. No loss of consciousness, not on blood thinners. History of previous stroke, is nonverbal subsequently. . Historical: - Allergies: 12:48 No Known Allergies; bp - PMHx: 12:48 bed bound; CVA; Diabetes - NIDDM; G Tube; Hypertension; nonverbal; NPO; bp - PSHx: 12:48 Frandy BKA; G tube placement; bp - Immunization history:: Adult Immunizations unknown. - Infectious Disease History:: Denies. - Social history:: Smoking status: unknown. ROS: 13:15 Constitutional: as per hpi ec2 Exam: 13:15 Constitutional: GEN: NAD Head: atraumatic Eyes: EOMI Ears: External ears are ec2 normal. CV: regular rate LUNGS: no respiratory distress ABD: non-distended SKIN: no evidence of rashes MSK: no evidence of trauma Vital Signs: 12:47 BP 104 / 45; Pulse 75; Resp 16; Temp 98; Pulse Ox 97% ; bp 14:30 BP 131 / 79; Pulse 73; Resp 16; Pulse Ox 96% ; bp MDM: 13:11 Patient medically screened. ec2 13:15 Data reviewed: vital signs. ED course: Patient arrives for evaluation for probable ec2 fall. Examination remarkable for well-appearing nontoxic dividual is otherwise in no acute distress with a reassuring examination who appears to be at her baseline per the family in the room. Will obtain CT scan of the head and C-spine given the patient's nonverbal status. Differential diagnosis include intracranial brain bleed, C-spine fracture. . 14:08 ED course: CT of the head and C-spine show no acute traumatic pathology. Will discharge ec2 home. Return precautions given. . 02/09 13:15 Order name: CT Head C Spine; Complete Time: 14:08 ec2 Administered Medications: 13:45 Drug: Tylenol Feeding Tube 650 mg Feeding Tube once; not to exceed 1,000 milligrams bp Route: Feeding Tube; Disposition Summary: 02/10/24 14:09 Discharge Ordered Notes: Location: Home ec2 Condition: Stable ec2 Diagnosis - Crushing injury of head, part unspecified ec2 Followup: ec2 - With: Private Physician - When: - Reason: Re-evaluation by your physician Discharge Instructions: - Discharge Summary Sheet ec2 - Head Injury, Adult, [id number] ec2 Forms: - Medication Reconciliation Form ec2 - Antibiotic Education ec2 - Prescription Opioid Use ec2 - Patient Portal Instructions ec2 - Leadership Thank You Letter ec2 Signatures: Dispatcher [employer] Diego Art, POLLY RN Gerardo Christiansen MD MD ec2
[2024-02-10 15:06] VITALS: BP 131/79; TEMP 98; O2SAT 96
== END 2024-02-10 14:39 | disposition home or self-care (01) ==
LOC: ER 12:27
DX: S07.8XXA Crushing injury of other parts of head, initial encounter (principal); W18.30XA Fall on same level, unspecified, initial encounter
CPT/HCPCS: 70450; 72125; 99283

== ENCOUNTER 2024-06-28 21:00 | Inpatient (IN) | payer OTHER ==
[2024-06-28 22:12] LABS: SARS-CoV-2 Antigen CONTROL BLUE LINE VIS/BG OK; SARS-CoV-2 Antigen Rapid Res Negative (Negative)
[2024-06-29 01:50] LABS: Blood Gas Oxyhemoglobin 92.2 % (94-97); Blood O2 Saturation 94.8 % (92-98.5)
[2024-06-29] MEDS ORDERED: ALBUTEROL 2.5 MG/3 ML NEB SOL ONE (01:51)
[2024-06-29] MEDS ORDERED: METHYLPREDNISOLONE 125 MG INJ ONE (01:51)
[2024-06-29] MEDS ORDERED: CEFEPIME 1 GM/VIAL ONE (01:52)
[2024-06-29] MEDS ORDERED: VANCOMYCIN 1 GM/VIAL ONE (01:52)
[2024-06-29] MEDS ORDERED: ACETAMINOPHEN 325 MG/SUPP PR ONE (01:52)
[2024-06-29] MEDS ORDERED: NA CHLORIDE 0.9% 2,000 ML ONE (01:53)
[2024-06-29] MEDS ORDERED: NA CHLORIDE 0.9% 250 ML ONE (01:54)
[2024-06-29] MEDS ORDERED: NA CHLORIDE 0.9% 100 ML ONE ×2 (01:54→09:55)
[2024-06-29] MEDS ORDERED: CEFEPIME 2 GM VIAL ONE ×2 (01:55→09:54)
--- NOTE | 2024-06-29 02:59 | RAD REPORT ---
EXAM DESCRIPTION: CT of the head without contrast CLINICAL HISTORY: [facility] COMPARISON: 02/10/2024 TECHNIQUE: Axial CT of the head obtained from the skull apex to the skull base without contrast. This exam was performed according to our departmental dose-optimization program, which includes automated exposure control, adjustment of the mA and/or kV according to patient size and/or use of it erative reconstruction technique. Motion artifact. FINDINGS: No acute intracranial hemorrhage identified. No mass, mass effect, shift of the midline, abnormal ext ra-axial fluid collection or CT evidence of acute ischemic change identified. The ventricular system and sulcal spaces are mildly enlarged compatible with mild cerebral atrophy. Confluent areas of hypodensity throughout the supratentorial white matter are nonspecific and may be related to chronic small vessel ischemic change. Focal encephalomalacia in the bilateral basal ganglia, greater on the left than the right likely related to prior infarctions. Redemonstrated falcine calcifications blurred due to motion artifact. The visualized paranasal sinuses and the mastoids are clear. No skull fracture identified. Visualiz ed orbits and globes are unremarkable. Atherosclerotic calcification of the intracranial internal carotid arteries. IMPRESSION: 1. No acute intracranial abnormality by CT criteria. Electronically signed by: Alejandro Mueller DO 06/29/2024 02:50 AM CDT RP [id number] Due to temporary technical issues with the PACS/[employer] reporting system, reports are being treva d by the in-house radiologist without review as a courtesy to ensure prompt reporting the interpreting radiologist is fully responsible for the content of the report. Transcribed Date/Time: 06/29/2024 2:59 AM
--- NOTE | 2024-06-29 03:00 | RAD REPORT ---
EXAM DESCRIPTION: Chest Abd Pelvis Wo Con CLINICAL HISTORY: CHEST PAIN COMPARISON: 07/04/2019 TECHNIQUE: CT of the chest, abdomen and pelvis performed without IV contrast. Evaluation of the solid organs and vasculature is suboptimal due to lack of IV contrast. This exam was performed according to our departmental dose-optimization program, which includes automated exposure control, adjustment of the mA and/or kV according to patient size and/or use of iterative reconstruction technique. FINDINGS: Chest: Thyroid: No abnormalities of the visualized thyroid. Great Vessels: Great vessels have normal anatomic configuration. Thoracic Aorta: Atherosclerotic calcification of the thoracic aorta. Pulmonary arteries: The main pulmonary artery is not dilated. Heart: Coronary artery atherosclerosis. Lymph Nodes: No enlarged mediastinal lymph nodes identified. Esophagus: No abnormalities of the esophagus identified Other: No additional findings. Lungs: Confluent airspace consolidation in the left lower lobe as well as scattered tree-in-bud opaci ties in the left upper lobe and anterior left lower lobe. Few scattered tree-in-bud opacities in the right lower lobe. Pleura: No pleural effusion or pneumothorax. Trachea/Airways: No acute abnormalities in the trachea. Mild debris/opacification of the lower lobe b ronchi. Abdomen: Liver: The liver has normal size and density. Gallbladder: Prior cholecystectomy. Spleen, Pancreas, and Adrenal Glands: The spleen, pancreas, and adrenal glands are unremarkable. Kidneys: The kidneys have normal size and contour without evidence of solid mass or hydronephrosis. Vasculature: Aortoiliac atherosclerosis. IVC is unremarkable. Stomach: Gastrostomy tube in place. Other: No free intraperitoneal air. No free fluid or lymphadenopathy. Pelvis: Bladder: Urinary bladder is unremarkable. Bowel: No dilated loops of large or small bowel. Large amount stool throughout the colon, most baylee re in the rectum where there is wall thickening and adjacent inflammatory change. Appendix: Not definitely identified. Pelvis: Prior hysterectomy. Bones: Osteoarthritic change of the hips. Multilevel degenerative endplate spondylosis and facet arth ropathy. Osteopenia. Erosive changes of the sacrum possibly related to decubitus ulcers and chronic osteomyelitis. Skin thinning overlying the sacrum. IMPRESSION: 1. Airspace consolidation in the left lower lobe as well as scattered tree-in-bud opacities in the left upper lobe and anterior left lower lobe. Few scattered tree-in-bud opacities in the right lower lobe. Findings compatible with acute infectious or inflammatory process. Aspiration is a consid eration. 2. Large amount stool throughout the colon, most severe in the rectum where there is wall thickenin g and adjacent inflammatory change. These findings could be seen with stercoral colitis. 3. Erosive changes of the sacrum possibly related to decubitus ulcers and chronic osteomyelitis. 4. Coronary artery atherosclerosis. Electronically signed by: Alejandro Mueller DO 06/29/2024 02:57 AM CDT RP 4ZDM Due to temporary technical issues with the PACS/[employer] reporting system, reports are being treva d by the in-house radiologist without review as a courtesy to ensure prompt reporting the interpreting radiologist is fully responsible for the content of the report. Transcribed Date/Time: 06/29/2024 3:00 AM
[2024-06-29 03:37] LABS: Absolute Lymphocytes (CBC) 0.5 K/uL (0.7-4.9); Absolute Monocytes 0.5 K/uL (0.1-1.3); Absolute Neutrophil 8.2 K/uL (1.8-8.0); Basophils % 0.3 % (0-1.3); Hematocrit 34.4 % (36.0-45.0); Hemoglobin 11.5 g/dL (12.0-15.0); Lymphocytes % 5.3 % (15.3-44.8); MCH 30.1 pg (27.0-35.0); MCHC 33.3 g/dL (32.0-36.0); MCV 90.2 fL (80-100); MPV 8.2 fL (7.6-11.3); Monocytes % 5.5 % (3.3-12.3); Neutrophils % 88.9 % (41.7-73.7); Platelets 258 thou/uL (152-406); RBC Red Blood Cell Count 3.82 M/uL (3.86-4.86); Red Cell Distribution Width 13.9 % (12.1-15.2)
[2024-06-29 03:40] LABS: PT Prothrombin Time 12.6 SECONDS (9.4-12.5); PTT, Activated Partial Thromb 29.4 SECONDS (24.3-36.9); Protime INR 1.13
[2024-06-29 03:44] LABS: Renal Epithelial <5 /HPF (None Seen); Specific Gravity 1.016 (1.005-1.030); Sqamous Epithelial <5 /HPF (None Seen); Urine Bacteria <20 /HPF (<20); Urine Bilirubin NEGATIVE (Negative); Urine Blood 2+ (Negative); Urine Clarity Extremely Turbid (Clear); Urine Color Light-Orange (Yellow); Urine Culture Reflex Order REFLEXED; Urine Glucose NEGATIVE (Negative); Urine Ketones NEGATIVE (Negative); Urine Microscopic Reflex YN ORDER UMIC; Urine Nitrite NEGATIVE (Negative); Urine Protein 1+ (Negative); Urine RBC >50 /HPF (None Seen); Urine Urobilinogen Normal (Normal); Urine WBC >50 /HPF (<5); Urine Yeast with Hyphae Trace /HPF (None Seen)
[2024-06-29 03:52] LABS: Albumin 2.7 g/dL (3.4-5.0); Albumin/Globulin Ratio 0.6 (1.1-1.8); Bilirubin Total 0.3 mg/dL (0.2-1.0); C-Reactive Protein 21.5 mg/L (<3.00); Globulin 4.9 g/dL (2.3-3.5); Protein, Total 7.6 g/dL (6.4-8.2); Troponin High Sensitivity 27.2 pg/mL (<58.9)
[2024-06-29 04:22] LABS: Band Neutrophils 35 % (0-1); Blood Morphology Comment NOT SEEN (NOT SEEN); Differential Total Cells Count 100; Lymphocytes 4 % (15-42); Monocytes 3 % (0-10); Platelet Estimate ADEQ; Segmented Neutrophils 57 % (40-80)
[2024-06-29 04:52] LABS: Thyroid Stimulating Hormone 1.51 uIU/mL (0.358-3.740)
--- NOTE | 2024-06-29 05:57 | EDPHYS ---
Physician Documentation [facility] Name: Juana Navarro Age: 64 yrs Sex: Female : 1960 Arrival Date: 06/28/2024 Time: 21:00 Bed 17 Private MD: ED Physician Jose Luis Basilio HPI: 06/28 21:07 This 64 yrs old Female presents to ER via Unassigned with complaints of Cough. sp4 06/29 04:07 Patient is thin debilitated bed bound patient with bilateral below-knee amputations who sp4 presents with acute colitis shortness of breath and cough productive of clear mucus.. 64-year-old female with past medical history of hypertension, CVA, nonverbal status, gastrostomy tube, dysphagia, IDDM, bilateral lower extremity amputations, chronic decubitus ulcer presents with EMS for acute onset of cough and respiratory illness. Last admission 06/24/2023 for pneumonia and UTI. Additional prior diagnosis includes cystitis without hematuria mental status deficits stage IV decubitus ulcer chronic osteomyelitis. Patient's medications include Glucerna, atorvastatin, tramadol, hydralazine, metformin, lisinopril, . On arrival patient is nonverbal, history is obtained from EMS. Historical: - Allergies: 07:14 No Known Allergies; ph - Home Meds: 06/28 21:15 pantoprazole Oral [Active]; Hydralazine Oral [Active]; clopidogrel 75 mg Oral tab 1 tab rg5 once daily [Active]; - PMHx: 21:15 bed bound; CVA; G Tube; Diabetes - NIDDM; Hypertension; nonverbal; NPO; rg5 - PSHx: 21:15 Frandy BKA; G tube placement; rg5 - Immunization history:: Adult Immunizations not up to date. - Infectious Disease History:: Denies. - Social history:: Smoking status: Patient/guardian denies using tobacco, the patient reports quitting approximately 20 years ago. - Family history:: not pertinent. ROS: 06/29 04:21 Constitutional: Negative for fever, chills, and weight loss, positive today for sp4 cough, positive for shortness of breath, positive for physical debility All other systems are negative, Exam: 04:21 Constitutional: Small size female, bilateral lower extremity below-knee amputee, sp4 moderate to severe physical debility, signs of dehydration, gastrostomy tube in place, incontinent of bowel and bladder, actively coughing on exam, drooling uncontrollably, signs of mild respiratory distress. Patient is nonverbal, moderate to severe multiple muscular contractures Head/Face: Normocephalic, atraumatic. Eyes: Pupils equal round and reactive to light, extra-ocular motions intact. Lids and lashes normal. Conjunctiva and sclera are not injected. Cornea within normal limits. Periorbital areas with no swelling, redness, or edema. ENT: Nares patent. No nasal discharge, no septal abnormalities noted. Tympanic membranes are normal and external auditory canals are clear. Oropharynx with no redness, swelling, or masses, exudates, or evidence of obstruction, uvula midline. Mucous membranes moist. Neck: Trachea midline, no thyromegaly or masses palpated, and no cervical lymphadenopathy. Supple, full range of motion without nuchal rigidity, or vertebral point tenderness. Chest/axilla: Normal chest wall appearance and motion. Nontender with no deformity. No lesions are appreciated. Cardiovascular: Regular rate and rhythm with a normal S1 and S2. No gallops, murmurs, or rubs. Normal PMI, no JVD. No pulse deficits. Respiratory: Lungs have equal breath sounds bilaterally, clear to auscultation and percussion. No rales, rhonchi or wheezes noted. No increased work of breathing, no retractions or nasal flaring. Abdomen/GI: Soft, with normal bowel sounds. No distension or tympany. No guarding or rebound. No evidence of tenderness throughout. Back: No spinal tenderness. No costovertebral tenderness. Skin: Warm, dry with normal turgor. Normal color with no rashes, no lesions, and no evidence of cellulitis. MS/ Extremity: Pulses equal, no cyanosis. Bilateral below-knee amputee, multiple muscular contractures, nonambulatory. Neuro: Awake , nonverbal female, exam is difficult secondary to nonverbal status, multiple to severe physical debility with multiple contractures 04:21 ECG was reviewed by the Attending Physician. EKG 0239 sinus tachycardia rate 103. Vital Signs: 06/28 21:02 BP 123 / 75; Pulse 115; Resp 18; Temp 103(A); Pulse Ox 95% on 2 lpm NC; rg5 22:09 BP 120 / 58; Pulse 114; Resp 18; Pulse Ox 99% on 2 lpm NC; rg5 23:25 BP 117 / 58; Pulse 110; Resp 19; Temp 101.6(O); Pulse Ox 96% on R/A; rg5 06/29 00:30 BP 96 / 58; Pulse 104; Resp 18; Pulse Ox 96% on R/A; rg5 01:16 BP 102 / 55; Pulse 99; Resp 18; Temp 99(O); Pulse Ox 96% on R/A; rg5 02:05 BP 91 / 50; Pulse 89; Resp 19; Pulse Ox 96% on 2 lpm NC; Pain 0/10; rg5 03:15 BP 141 / 109; Pulse 106; Resp 17; Temp 98.7; Pulse Ox 95% on 2 lpm NC; rg5 04:40 BP 91 / 57; Pulse 100; Resp 19 S; Pulse Ox 95% on 2 lpm NC; rg5 05:47 BP 90 / 57; Pulse 73; Resp 17; Temp 98.6(O); Pulse Ox 94% on 2 lpm NC; Pain 0/10; rg5 06:43 BP 110 / 59; Pulse 80; Resp 16; Pulse Ox 96% on 2 lpm NC; rg5 02:05 Pain Scale: Adult rg5 05:47 Pain Scale: Adult rg5 Procedures: 05:57 Fecal disimpaction: digital disimpaction was performed, with a large amount of stool sp4 expressed. The patient tolerated the intervention well, Fecal disimpaction performed for moderate to severe rectal fecal impaction . MDM: 06/28 21:08 Medical Screening Exam initiated sp4 06/29 04:04 ED course: XR CHEST 1 VIEW CLINICAL INDICATION: Cough COMPARISON: None FINDINGS: sp4 SUPPORT DEVICES: None LUNGS/PLEURAL SPACES: Mild perihilar peribronchial thickening, raising the suspicion of bronchiolitis and/or bronchiectasis. No airspace consolidation. No pleural effusion. No pneumothorax. HEART/MEDIASTINUM: Within normal range. BONES/UPPER ABDOMEN/SOFT TISSUES: No acute findings. IMPRESSION: Mild perihilar peribronchial thickening, raising the suspicion of bronchiolitis and/or bronchiectasis. ED course: EXAM DESCRIPTION: CT of the head without contrast CLINICAL HISTORY: [facility] COMPARISON: 02/10/2024 TECHNIQUE: Axial CT of the head obtained from the skull apex to the skull base without contrast. This exam was performed according to our departmental dose-optimization program, which includes automated exposure control, adjustment of the mA and/or kV according to patient size and/or use of iterative reconstruction technique. Motion artifact. FINDINGS: No acute intracranial hemorrhage identified. No mass, mass effect, shift of the midline, abnormal extra-axial fluid collection or CT evidence of acute ischemic change identified. The ventricular system and sulcal spaces are mildly enlarged compatible with mild cerebral atrophy. Confluent areas of hypodensity throughout the supratentorial white matter are nonspecific and may be related to chronic small vessel ischemic change. Focal encephalomalacia in the bilateral basal ganglia, greater on the left than the right likely related to prior infarctions. Redemonstrated falcine calcifications blurred due to motion artifact. The visualized paranasal sinuses and the mastoids are clear. No skull fracture identified. Visualized orbits and globes are unremarkable. Atherosclerotic calcification of the intracranial internal carotid arteries. IMPRESSION: 1. No acute intracranial abnormality by CT criteria. . ED course: IMPRESSION: 1. Airspace consolidation in the left lower lobe as well as scattered tree-in-bud opacities in the left upper lobe and anterior left lower lobe. Few scattered tree-in-bud opacities in the right lower lobe. Findings compatible with acute infectious or inflammatory process. Aspiration is a consideration. 2. Large amount stool throughout the colon, most severe in the rectum where there is wall thickening and adjacent inflammatory change. These findings could be seen with stercoral colitis. 3. Erosive changes of the sacrum possibly related to decubitus ulcers and chronic osteomyelitis. 4. Coronary artery atherosclerosis. Electronically signed by: Alejandro Mueller DO 06/29/2024 02:57 AM. ED course: CT - FINDINGS: Chest: Thyroid:No abnormalities of the visualized thyroid. Great Vessels:Great vessels have normal anatomic configuration. Thoracic Aorta:Atherosclerotic calcification of the thoracic aorta. Pulmonary arteries:The main pulmonary artery is not dilated. Heart:Coronary artery atherosclerosis. Lymph Nodes:No enlarged mediastinal lymph nodes identified. Esophagus:No abnormalities of the esophagus identified Other:No additional findings. Lungs:Confluent airspace consolidation in the left lower lobe as well as scattered tree-in-bud opacities in the left upper lobe and anterior left lower lobe. Few scattered tree-in-bud opacities in the right lower lobe. Pleura:No pleural effusion or pneumothorax. Trachea/Airways:No acute abnormalities in the trachea. Mild debris/opacification of the lower lobe bronchi. Abdomen: Liver: The liver has normal size and density. Gallbladder: Prior cholecystectomy. Spleen, Pancreas, and Adrenal Glands: The spleen, pancreas, and adrenal glands are unremarkable. Kidneys: The kidneys have normal size and contour without evidence of solid mass or hydronephrosis. Vasculature: Aortoiliac atherosclerosis. IVC is unremarkable. Stomach: Gastrostomy tube in place. Other: No free intraperitoneal air. No free fluid or lymphadenopathy. Pelvis: Bladder: Urinary bladder is unremarkable. Bowel: No dilated loops of large or small bowel. Large amount stool throughout the colon, most severe in the rectum where there is wall thickening and adjacent inflammatory change. Appendix: Not definitely identified. Pelvis:Prior hysterectomy. Bones: Osteoarthritic change of the hips. Multilevel degenerative endplate spondylosis and facet arthropathy. Osteopenia. Erosive changes of the sacrum possibly related to decubitus ulcers and chronic osteomyelitis. Skin thinning overlying the sacrum. . 04:28 Differential Diagnosis: Obstructed Airway Bronchitis Influenza Upper Respiratory sp4 Infection Sinusitis Pneumonia. Data reviewed: vital signs, nurses notes, EMS record, lab test result(s), EKG, radiologic studies, CT scan, plain films. Consideration of Admission/Observation Patient was admitted/placed on observation. Escalation of care including admission/observation considered. Management of patient was discussed with the following: Hospitalist: Admit team . 06:59 ED course: This Sepsis reevaluation complete. Patient is stable for admission,, patient sp4 was given 30 mL/kg septic fluid bolus. 06/28 21:08 Order name: SARS RAPID; Complete Time: 01:15 sp4 06/28 21:08 Order name: Influenza Screen (a \T\ B); Complete Time: 01:15 sp4 06/29 01:23 Order name: Blood Culture Adult (2) sp4 06/29 01:23 Order name: CBC with Diff; Complete Time: 04:29 sp4 06/29 01:23 Order name: CMP; Complete Time: 05:54 sp4 06/29 01:23 Order name: Lactate w/ 2H reflex if indic.; Complete Time: 04:03 sp4 06/29 01:23 Order name: Protime (+inr); Complete Time: 04:03 sp4 06/29 01:23 Order name: Ptt, Activated; Complete Time: 04:03 sp4 06/29 01:23 Order name: Urinalysis w/ reflexes; Complete Time: 04:03 sp4 06/29 01:23 Order name: ABG; Complete Time: 03:08 sp4 06/29 01:23 Order name: Troponin High Sensitivity; Complete Time: 05:54 sp4 06/29 01:23 Order name: BNP; Complete Time: 05:54 sp4 06/29 01:23 Order name: CRP; Complete Time: 05:54 sp4 06/29 01:59 Order name: Glucose, Ancillary Testing; Complete Time: 03:08 EDMS 06/29 03:44 Order name: Manual Differential; Complete Time: 04:29 EDMS 06/29 03:47 Order name: Urine Culture EDMS 06/29 04:36 Order name: T4 Free; Complete Time: 05:54 EDMS 06/29 04:36 Order name: Thyroid Stimulating Hormone; Complete Time: 05:54 EDMS 06/29 00:31 Order name: Chest Single View EDAL 06/29 01:21 Order name: CT Chest Abdomen Pelvis W/O Contrast 4 06/29 01:22 Order name: CT Head Brain wo Cont sp4 06/29 01:23 Order name: Accucheck; Complete Time: 02:03 sp4 06/29 01:23 Order name: Cardiac monitoring; Complete Time: 01:35 sp4 06/29 01:23 Order name: Cath; Complete Time: 03:34 sp4 06/29 01:23 Order name: EKG - Nurse/Tech; Complete Time: 02:45 sp4 06/29 01:23 Order name: IV Saline Lock - Large Bore; Complete Time: 01:57 sp4 06/29 01:23 Order name: Labs collected and sent; Complete Time: 01:57 sp4 06/29 01:23 Order name: O2 Per Protocol; Complete Time: 01:35 sp4 06/29 01:23 Order name: O2 Sat Monitoring; Complete Time: 01:35 sp4 06/29 01:23 Order name: Vital Signs; Complete Time: 01:35 sp4 06/29 02:23 Order name: Misc. Order: RECOLLECT ALL LABS; Complete Time: 02:56 rv1 EC:21 Rate is 103 beats/min. Rhythm is regular, Sinus tachycardia. QRS [place] is Normal. LA sp4 interval is normal. QRS interval is normal. QT interval is normal. No Q waves. T waves are Normal. No ST changes noted. Clinical impression: No evidence of ischemia. Interpreted by me. Reviewed by me. Administered Medications: 01:50 Drug: NS 0.9% IV 1000 ml IV at 1 bolus Per protocol; to be given as a bolus over 60 rg5 minutes Route: IV; Rate: 1 bolus; Site: right forearm; 02:30 Follow up: IV Status: Completed infusion; IV Intake: 1000ml rg5 02:03 Drug: Cefepime IVPB 2 grams IVPB at 200 ml/hr once over 30 mins; (mix in NS 100 mL) rg5 Route: IVPB; Rate: 200 ml/hr; Infused Over: 30 mins; Site: right forearm; 02:15 Drug: Albuterol Inhalation 2.5 mg Inhalation every 20 minutes x3 Route: Inhalation; rg5 02:15 Drug: MethylPrednisoLONE IVP 125 mg IVP once Route: IVP; Site: right forearm; rg5 03:34 Follow up: Response: No adverse reaction rg5 02:36 Drug: Albuterol Inhalation 2.5 mg Inhalation every 20 minutes x3 Route: Inhalation; rg5 02:45 Drug: vancoMYCIN IVPB 1 grams IVPB once over 2 hrs Route: IVPB; Infused Over: 2 hrs; rg5 Site: right forearm; 02:45 Drug: Acetaminophen LA Suppository 650 mg LA once Route: LA; rg5 03:35 Follow up: Response: No adverse reaction rg5 02:50 Drug: Albuterol Inhalation 2.5 mg Inhalation every 20 minutes x3 Route: Inhalation; rg5 03:00 Drug: NS 0.9% IV 1000 ml IV at 125 ml/hr continuous Route: IV; Rate: 125 ml/hr; Site: rg5 right forearm; Disposition Summary: 06/29/24 05:56 Hospitalization Ordered Notes: Hospitalization Status: Inpatient Admission sp4 Provider: Ricky Wolfe sp4 Condition: Fair sp4 Problem: new sp4 Symptoms: have improved sp4 Bed/Room Type: Standard sp4 Location: Intensive Care Unit(06/29/24 12:05) bd Room Assignment: 1-(06/29/24 12:05) bd Diagnosis - Acute pyelonephritis, acute left lower lung pneumonia sp4 - Severe sepsis without septic shock sp4 Forms: - Medication Reconciliation Form sp4 - SBAR form sp4 - Leadership Thank You Letter sp4 Critical care time excluding procedures: 05:56 Critical care time: Bedside Care: 36 minutes, Consultation: 12 minutes, Family sp4 Intervention: 12 minutes. Total time: 60 minutes Signatures: Dispatcher [employer] EDMS ErikaAngela Elisa Barkley RN RN Consuelo Morales RN RN kb3 Emily Rahman rv1 Jose Luis Basilio MD MD sp4 Joel Ardon, POLLY RN rg5 Corrections: (The following items were deleted from the chart) 06/28 21:08 21:08 SARS-COV-2 Antigen Rapid+I.LAB.BRZ ordered. EDMS EDMS 21:08 21:08 Influenza Screen (A \T\ B)+BA.LAB.BRZ ordered. EDMS EDMS 06/29 01:24 01:24 Troponin High Sensitivity+C.LAB.BRZ ordered. EDMS EDMS 01:24 01:24 PROBNP+C.LAB.BRZ ordered. EDMS EDMS 01:24 01:24 C-REACTIVE PROTEIN+C.LAB.BRZ ordered. EDMS EDMS 04:35 04:29 THYROID STIMULAT HORMONE+C.LAB.BRZ ordered. EDMS EDMS 04:35 04:29 T4 FREE+C.LAB.BRZ ordered. EDMS EDMS 06:00 06/28 21:15 PMHx: NPO; rg5 rg5 06/29 08:42 05:56 Telemetry/MedSurg (Inpatient) sp4 kb3 08:42 05:56 sp4 kb3 12:05 08:42 [facility] ER HOLD kb3 bd 12:05 08:42 ERHOLD- kb3 bd
--- NOTE | 2024-06-29 05:57 | ER ---
Nurse's Notes [facility] Name: Juana Navarro Age: 64 yrs Sex: Female : 1960 Arrival Date: 06/28/2024 Time: 21:00 Bed 17 Private MD: Diagnosis: Acute pyelonephritis, acute left lower lung pneumonia;Severe sepsis without septic shock Presentation: 06/28 21:02 Chief complaint: EMS states: Family called because they were concern about the patient rg5 having continuously couching since yesterday, O2 sat was 88 on room air and went up to 94% after giving 2L via nasal cannula. Coronavirus screen: Vaccine status:. 21:02 Method Of Arrival: EMS: [facility] rg5 21:02 Acuity: DAVID 4 rg5 21:02 Ebola Screen: Patient negative for fever greater than or equal to 101.5 degrees rg5 Fahrenheit, and additional compatible Ebola Virus Disease symptoms. Initial Sepsis Screen: Does the patient meet any 2 criteria? No. Patient's initial sepsis screen is negative. Does the patient have a suspected source of infection? No. Patient's initial sepsis screen is negative. Risk Assessment: Do you want to hurt yourself or someone else? Patient reports no desire to harm self or others. Onset of symptoms was June 27, 2024. Care prior to arrival: Oxygen administered. via nasal cannula. Triage Assessment: 21:15 General: Appears in no apparent distress. Behavior is calm, cooperative. Pain: Denies rg5 pain. EENT: No signs and/or symptoms were reported regarding the EENT system. Neuro: Level of Consciousness is awake, alert. Cardiovascular: Rhythm is sinus tachycardia. Respiratory: Airway is patent Trachea midline Respiratory effort is even, Parent/caregiver reports the patient having cough that is since yesterday. GI: PEG tube in place. : Parent/caregiver report the patient having incontinence. Derm: Skin is fragile, Skin is dry, Skin is normal, Skin temperature is warm. Historical: - Allergies: 06/29 07:14 No Known Allergies; ph - Home Meds: 06/28 21:15 pantoprazole Oral [Active]; Hydralazine Oral [Active]; clopidogrel 75 mg Oral tab 1 tab rg5 once daily [Active]; - PMHx: 21:15 bed bound; CVA; G Tube; Diabetes - NIDDM; Hypertension; nonverbal; NPO; rg5 - PSHx: 21:15 Frandy BKA; G tube placement; rg5 - Immunization history:: Adult Immunizations not up to date. - Infectious Disease History:: Denies. - Social history:: Smoking status: Patient/guardian denies using tobacco, the patient reports quitting approximately 20 years ago. - Family history:: not pertinent. Screenin:02 [facility] ED Fall Risk Assessment (Adult) History of falling in the last 3 months, rg5 including since admission No falls in past 3 months (0 pts) Confusion or Disorientation No (0 pts) Intoxicated or Sedated No (0 pts) Impaired Gait Yes (1 pt) Mobility Assist Device Used Yes (1 pt) Altered Elimination Yes (1 pt) Score/Fall Risk Level 3 or more points = High Risk Oriented to surroundings, Maintained a safe environment, Educated pt \T\ family on fall prevention, incl call for assistance when getting out of bed, Hourly rounding (assess needs \T\ fall precautionary measures) done. Abuse screen: Denies threats or abuse. Nutritional screening: No deficits noted. Tuberculosis screening: No symptoms or risk factors identified. 21:02 Sepsis Screening: SIRS - Systemic Inflammatory Response Syndrome: 2 or more indicates rg5 positive screen: [temperature greater than or equal to 100.9F or less than or equal to 96.8F] [heart rate greater than 90 beats per minute] Organ Dysfunction: One or more within 3 days of new infection: Patient has a negative screen for severe sepsis. Assessment: 21:21 Reassessment: see triage assessment. rg5 22:11 Reassessment: Patient and/or family updated on plan of care and expected duration. Pain rg5 level reassessed. Patient is alert, oriented x 3, equal unlabored respirations, skin warm/dry/pink. 23:26 Reassessment: Patient and/or family updated on plan of care and expected duration. Pain rg5 level reassessed. Patient is alert, oriented x 3, equal unlabored respirations, skin warm/dry/pink. 06/29 00:00 Reassessment: Patient and/or family updated on plan of care and expected duration. Pain rg5 level reassessed. Patient is alert, oriented x 3, equal unlabored respirations, skin warm/dry/pink. 01:12 Reassessment: Patient and/or family updated on plan of care and expected duration. Pain rg5 level reassessed. Patient is alert, oriented x 3, equal unlabored respirations, skin warm/dry/pink. 02:00 Reassessment: No changes from previously documented assessment. Patient and/or family rg5 updated on plan of care and expected duration. Pain level reassessed. 03:00 Reassessment: Patient and/or family updated on plan of care and expected duration. Pain rg5 level reassessed. Patient is alert, oriented x 3, equal unlabored respirations, skin warm/dry/pink. 04:00 Reassessment: No changes from previously documented assessment. Patient and/or family rg5 updated on plan of care and expected duration. Pain level reassessed. 05:00 Reassessment: No changes from previously documented assessment. Patient and/or family rg5 updated on plan of care and expected duration. Pain level reassessed. Vital Signs: 06/28 21:02 BP 123 / 75; Pulse 115; Resp 18; Temp 103(A); Pulse Ox 95% on 2 lpm NC; rg5 22:09 BP 120 / 58; Pulse 114; Resp 18; Pulse Ox 99% on 2 lpm NC; rg5 23:25 BP 117 / 58; Pulse 110; Resp 19; Temp 101.6(O); Pulse Ox 96% on R/A; rg5 06/29 00:30 BP 96 / 58; Pulse 104; Resp 18; Pulse Ox 96% on R/A; rg5 01:16 BP 102 / 55; Pulse 99; Resp 18; Temp 99(O); Pulse Ox 96% on R/A; rg5 02:05 BP 91 / 50; Pulse 89; Resp 19; Pulse Ox 96% on 2 lpm NC; Pain 0/10; rg5 03:15 BP 141 / 109; Pulse 106; Resp 17; Temp 98.7; Pulse Ox 95% on 2 lpm NC; rg5 04:40 BP 91 / 57; Pulse 100; Resp 19 S; Pulse Ox 95% on 2 lpm NC; rg5 05:47 BP 90 / 57; Pulse 73; Resp 17; Temp 98.6(O); Pulse Ox 94% on 2 lpm NC; Pain 0/10; rg5 06:43 BP 110 / 59; Pulse 80; Resp 16; Pulse Ox 96% on 2 lpm NC; rg5 02:05 Pain Scale: Adult rg5 05:47 Pain Scale: Adult rg5 ED Course: 06/28 21:01 Patient arrived in ED. rg5 21:02 Joel Ardon, POLLY is Primary Nurse. rg5 21:02 Arm band placed on right wrist. rg5 21:02 Patient has correct armband on for positive identification. Bed in low position. Call rg5 light in reach. Side rails up X2. Adult w/ patient. 21:02 No provider procedures requiring assistance completed. rg5 21:07 Jose Luis Basilio MD is Attending Physician. sp4 21:25 SARS RAPID Sent. oe 21:25 Influenza Screen (a \T\ B) Sent. oe 21:55 Triage completed. rg5 22:30 Door closed. Noise minimized. rg5 06/29 00:45 Suctioned orally thin clear sputum. rg5 00:48 Chest Single View In Process Unspecified. EDMS 01:41 First set of blood cultures drawn by me. oe 01:56 Inserted saline lock: 22 gauge in right forearm, using aseptic technique. Blood oe collected. Flushed with 10 mL NS. 01:57 CRP Sent. oe 01:57 BNP Sent. oe 01:57 Troponin High Sensitivity Sent. oe 01:57 CBC with Diff Sent. oe 01:58 CMP Sent. oe 01:58 Lactate w/ 2H reflex if indic. Sent. oe 01:58 Protime (+inr) Sent. oe 01:58 Ptt, Activated Sent. oe 02:00 Cleaned of incontinence. rg5 02:01 Second set of blood cultures drawn by me. oe 02:34 CT Chest Abdomen Pelvis W/O Contrast In Process Unspecified. EDMS 02:34 CT Head Brain wo Cont In Process Unspecified. EDMS 02:55 EKG done, by ED staff, reviewed by Jose Luis Basilio MD. oe 03:20 Shah cath inserted, using sterile technique, returned cloudy urine. Patient tolerated oe well. 05:56 Ricky Wolfe MD is Hospitalizing Provider. sp4 05:58 Patient admitted, IV remains in place. intact, No redness/swelling at site. rg5 05:59 Provided Education on: needs for admit. rg5 Administered Medications: 01:50 Drug: NS 0.9% IV 1000 ml IV at 1 bolus Per protocol; to be given as a bolus over 60 rg5 minutes Route: IV; Rate: 1 bolus; Site: right forearm; 02:30 Follow up: IV Status: Completed infusion; IV Intake: 1000ml rg5 02:03 Drug: Cefepime IVPB 2 grams IVPB at 200 ml/hr once over 30 mins; (mix in NS 100 mL) rg5 Route: IVPB; Rate: 200 ml/hr; Infused Over: 30 mins; Site: right forearm; 02:15 Drug: Albuterol Inhalation 2.5 mg Inhalation every 20 minutes x3 Route: Inhalation; rg5 02:15 Drug: MethylPrednisoLONE IVP 125 mg IVP once Route: IVP; Site: right forearm; rg5 03:34 Follow up: Response: No adverse reaction rg5 02:36 Drug: Albuterol Inhalation 2.5 mg Inhalation every 20 minutes x3 Route: Inhalation; rg5 02:45 Drug: vancoMYCIN IVPB 1 grams IVPB once over 2 hrs Route: IVPB; Infused Over: 2 hrs; rg5 Site: right forearm; 02:45 Drug: Acetaminophen OH Suppository 650 mg OH once Route: OH; rg5 03:35 Follow up: Response: No adverse reaction rg5 02:50 Drug: Albuterol Inhalation 2.5 mg Inhalation every 20 minutes x3 Route: Inhalation; rg5 03:00 Drug: NS 0.9% IV 1000 ml IV at 125 ml/hr continuous Route: IV; Rate: 125 ml/hr; Site: rg5 right forearm; Medication: 06/28 21:02 VIS not applicable for this client. rg5 Intake: 06/29 02:30 IV: 1000ml; Total: 1000ml. rg5 Output: 02:45 Urine: 250ml; Total: 250ml. rg5 Outcome: 05:56 Decision to Hospitalize by Provider. sp4 13:30 Patient left the ED. ll1 Signatures: Dispatcher [employer] EDMN Elisa Powell RN RN ph Espinosa, Orlando oe Lewis, Lynsay, RN RN ll1 Jose Luis Basilio MD MD sp4 Joel Ardon RN RN rg5 Corrections: (The following items were deleted from the chart) 02:07 01:41 First set of blood cultures drawn oe oe 04:17 03:20 Shah cath inserted, using sterile technique, Patient tolerated well. oe oe 04:20 03:20 Shah cath inserted, using sterile technique, returned cloudy urine. Patient oe tolerated well. oe 06:00 06/28 21:15 PMHx: NPO; rg5 rg5
--- NOTE | 2024-06-29 06:15 | RAD REPORT ---
XR CHEST 1 VIEW CLINICAL INDICATION: Cough COMPARISON: None FINDINGS: SUPPORT DEVICES: None LUNGS/PLEURAL SPACES: Mild perihilar peribronchial thickening, raising the suspicion of bronchiolitis and/or bronchiectasis. No airspace consolidation. No pleural effusion. No pneumothorax. HEART/MEDIASTINUM: Within normal range. BONES/UPPER ABDOMEN/SOFT TISSUES: No acute findings. IMPRESSION: Mild perihilar peribronchial thickening, raising the suspicion of bronchiolitis and/or bronchiectasis . Electronically signed by: Teresita Ann MD 06/29/2024 01:11 AM CDT Due to temporary technical issues with the PACS/CallGrader reporting system, reports are being treva d by the in-house radiologist without review as a courtesy to ensure prompt reporting the interpreting radiologist is fully responsible for the content of the report. Transcribed Date/Time: 06/29/2024 6:15 AM
[2024-06-29] MEDS: NA CHLORIDE 0.9% 1,000 ML IV SCH (07:16)
[2024-06-29] MEDS ORDERED: ALBUTEROL 2.5 MG/3 ML NEB SOL NEB PRN (07:16)
[2024-06-29] MEDS ORDERED: ONDANSETRON 4 MG/2 ML VIAL IV PRN (07:16)
[2024-06-29] MEDS ORDERED: ACETAMINOPHEN 325 MG TABLET FT PRN (08:30)
[2024-06-29] MEDS: ENOXAPARIN 30 MG/0.3 ML SQ SCH (09:00)
[2024-06-29] MEDS: CEFEPIME 2 GM in NA CHLORIDE 0.9% 100 ML IV SCH (09:00)
[2024-06-29] MEDS ORDERED: NA CHLORIDE 0.9% 1,000 ML ONE (09:55)
[2024-06-29] MEDS ORDERED: ENOXAPARIN 30 MG/0.3 ML SQ ONE (09:55)
--- NOTE | 2024-06-29 12:50 | EKG ---
Test Date: 2024-06-29 Test Time: 02:39:15 Marketing Compliance Manager: JEFFERY MEASUREMENT RESULTS: Intervals: Rate: 103 NH: 156 QRSD: 90 QT: 338 QTc: 442 [place]: P: 79 NH: 156 QRS: 34 T: 78 INTERPRETIVE STATEMENTS: Sinus tachycardia Otherwise normal ECG Compared to ECG 06/24/2023 13:08:01 Sinus rhythm no longer present Myocardial infarct finding no longer present Electronically Signed On 06-29-24 12:48:34 CDT by Tyrone Nowak
--- NOTE | 2024-06-29 16:43 | P.HP ---
Certification for Inpatient Patient admitted to: Inpatient With expected LOS: >2 Midnights Patient will require the following post-hospital care: None Practitioner: I am a practitioner with admitting privileges, knowledge of patient current condition, hospital course, and medical plan of care. Services: Services provided to patient in accordance with Admission requirements found in Title 42 Section 412.3 of the Code of Federal Regulations Patient History Date of Service: 06/29/24 Reason for admission: Pneumonia, sepsis History of Present Illness: 64-year-old female with history of CVA, aphasia, hypertension, G-tube, insulin- dependent diabetes, bilateral lower extremity mutations, chronic ulceration to the back presented to the emergency department chief complaint of cough. Her family reports she has had a cough for the last few days and for that reason brought her into the emergency department. Upon arrival patient was found to be febrile with a temperature of 103, labs were significant for a white blood count of 9.2 hemoglobin 11.5 CRP 21.5 BNP 1385 UA with 500 leuk esterase, white blood cells, red blood cells, urine culture reflexed. ER staff report upon placing Shah catheter that urine was milky white. CT of the chest abdomen and pelvis was obtained which showed primarily left lower lobe pneumonia as well as large amount of stool throughout the colon most severe in the rectum where there is wall thickening and adjacent inflammatory changes, erosive changes of the sacrum possibly related to decubitus ulcer and chronic osteomyelitis. Physician performed digital disimpaction which relieved the stool burden in the rectum, patient need to be admitted for severe sepsis, pneumonia, suspected UTI. Allergies No Known Allergies Allergy (Verified 07/13/19 19:58) Home Medications: Glucerna 1.5 Vikas 237 ml FT QID #90 bot 02/10/18 Hydralazine [Apresoline*] 25 mg FT DAILY 07/14/19 lisinopriL [Prinivil*] 10 mg FT DAILY 07/14/19 Atorvastatin Calcium [Lipitor*] 10 mg FT BEDTIME 06/29/24 Clopidogrel Bisulfate [Plavix] 75 mg FT DAILY 06/29/24 Metoprolol Succinate [Toprol Xl*] 50 mg FT DAILY 06/29/24 - Past Medical/Surgical History Has patient received pneumonia vaccine in the past: No Diabetic: Yes -: Hx CVA with residual aphasia -: HTN -: Hyperlipidemia -: Neuropathy -: DM -: History of dysphagia now with PEG tube -: Hysterectomy -: PEG tube placement -: Amputation of right foot -: Amputation of first digit left toe -: bi BKA Psychosocial/ Personal History: Patient lives at home. She has several children. She is . - Family History Mother -: Stroke Father -: Heart disease - Social History Smoking Status: Former smoker Alcohol use: No CD- Drugs: No Caffeine use: No Place of Residence: Home Review of Systems 10-point ROS is otherwise unremarkable Respiratory: Cough Physical Examination - Vital Signs Temperature: 98.6 F Blood Pressure: 114/65 Pulse: 71 Respirations: 16 Pulse Ox (%): 93 - Physical Exam General: Other (Aphasic at baseline, eyes open) HEENT: Atraumatic, PERRLA, Mucous membr. moist/pink Neck: Supple Respiratory: Diminished Cardiovascular: No edema, Normal S1 S2 Capillary refill: <2 Seconds Gastrointestinal: Normal bowel sounds Musculoskeletal: No erythema, No warmth, Other (Bilateral BKA) Integumentary: Pressure ulcer (Sacral) Neurological: Other (Aphasic at baseline, bedbound) Urinary: Shah catheter (Placed in ER) - Studies Laboratory Data (last 24 hrs) 06/29/24 06/29/24 06/29/24 02:57 02:57 02:57 WBC 9.20 Hgb 11.5 L Hct 34.4 L Plt Count 258 PT 12.6 H INR 1.13 APTT 29.4 Sodium 139 Potassium 4.0 BUN 46 H Creatinine 0.70 Glucose 130 H Total Bilirubin 0.3 AST 15 ALT 16 Alkaline Phosphatase 65 Microbiology Data (last 24 hrs): 06/28/24 21:20 Nasopharnyx Influenza Type A Antigen Screen - Final 06/28/24 21:20 Nasopharnyx Influenza Type B Antigen Screen - Final Assessment and Plan - Plan Assessment: Severe sepsis secondary to pneumonia-bilateral worse on the left, UTI History of CVA with aphasia, dysphagia with PEG tube in place History of bilateral BKA Diabetes mellitus type 2 Hypertension Plan: Severe sepsis secondary to pneumonia-bilateral worse on the left, UTI Blood cultures and urine culture obtained in ED Shah catheter placed in ED Continue broad-spectrum antibiotics with vancomycin, cefepime Follow cultures, pulmonology consulted History of CVA with aphasia, dysphagia with PEG tube in place At baseline Continue tube feeds when dosing is verified Continue home meds History of bilateral BKA Diabetes mellitus type 2 Q6H accheck, SSI Hypertension Hold oral antihypertensives tonight, monitor blood pressure she is currently septic Continue with blood pressures persistently elevated DVT PPX:Lovenox Code status:Full Discharge Plan: Home Plan to discharge in: Greater than 2 days - Advance Directives Does patient have a Living Will: No Does patient have a Durable POA for Healthcare: No - Code Status/Comfort Care Code Status Assessed: Yes (Full code) Critical Care: No Time Spent Managing Pts Care (In Minutes): 65
[2024-06-29] MEDS: VANCOMYCIN 1 GM in NA CHLORIDE 0.9% 250 ML IVPB SCH (20:08)
[2024-06-30] MEDS: D10W 250 ML IV ONE (00:50)
[2024-06-30 05:33] LABS: Absolute Lymphocytes (CBC) 0.7 K/uL (0.7-4.9); Absolute Monocytes 0.6 K/uL (0.1-1.3); Absolute Neutrophil 6.8 K/uL (1.8-8.0); Basophils % 0.4 % (0-1.3); Eosinophils % 0.1 % (0-4.4); Hemoglobin 10.4 g/dL (12.0-15.0); Lymphocytes % 8.7 % (15.3-44.8); MCH 30.4 pg (27.0-35.0); MCHC 33.4 g/dL (32.0-36.0); MPV 7.6 fL (7.6-11.3); Monocytes % 7.5 % (3.3-12.3); Neutrophils % 83.3 % (41.7-73.7); Platelets 236 thou/uL (152-406); RBC Red Blood Cell Count 3.41 M/uL (3.86-4.86); Red Cell Distribution Width 14.2 % (12.1-15.2)
[2024-06-30 05:51] LABS: Anion Gap 6.5 mEq/L (5.0-15.0); Magnesium 1.8 mg/dL (1.6-2.4); Potassium 3.5 mEq/L (3.5-5.1)
[2024-06-30] MEDS: MAGNESIUM SULFATE 1 gm IVPB 1 GM/100 ML BAG IV ONE (06:25)
[2024-06-30] MEDS: AMIODARONE IN DEXTROSE,ISO-OSM 360 MG/200 ML BAG IV ONE (07:09)
[2024-06-30 07:35] VITALS: BMI 12.2
[2024-06-30] MEDS: POTASSIUM PHOS IN 0.9 % NACL 15 MMOL/250 ML BAG IV ONE (08:02)
[2024-06-30] MEDS: GLUCERNA 1.5 CAL 1,000 ML BOT FT SCH (08:39)
[2024-06-30] MEDS: CLOPIDOGREL 75 MG TABLET FT SCH (08:39)
--- NOTE | 2024-06-30 09:49 | P.PN ---
Date of Service: 06/30/24 Subjective: Alert, eyes open No acute events overnight stable to downgrade to floor today ROS: 10 point ROS as noted above, otherwise negative General: Other (Aphasic at baseline, eyes open) HEENT: Atraumatic, PERRLA, Mucous membr. moist/pink Neck: Supple Respiratory: Diminished Cardiovascular: No edema, Normal S1 S2 Capillary refill: <2 Seconds Gastrointestinal: Normal bowel sounds, PEG tube in place Musculoskeletal: No erythema, No warmth, Other (Bilateral BKA) Integumentary: Pressure ulcer (Sacral) Neurological: Other (Aphasic at baseline, bedbound) Urinary: Shah catheter (Placed in ER) Vitals reviewed Assessment: Severe sepsis secondary to pneumonia-bilateral worse on the left, UTI History of CVA with aphasia, dysphagia with PEG tube in place History of bilateral BKA Diabetes mellitus type 2 Hypertension Plan: Severe sepsis secondary to pneumonia-bilateral worse on the left, UTI Blood cultures and urine culture obtained in ED Shah catheter placed in ED Continue broad-spectrum antibiotics with vancomycin, cefepime Follow cultures, pulmonology consulted History of CVA with aphasia, dysphagia with PEG tube in place At baseline Continue tube feeds today Continue home meds History of bilateral BKA Diabetes mellitus type 2 Q6H accheck, SSI Hypertension Hold oral antihypertensives tonight, monitor blood pressure she is currently septic Continue with blood pressures persistently elevated DVT PPX:Lovenox Code status:Truck Rental Clerk Spent Managing Pts Care (In Minutes): 35
[2024-06-30] MEDS ORDERED: ALBUTEROL 2.5 MG/3 ML NEB SOL NEB PRN (11:44)
[2024-06-30] MEDS ORDERED: D10W 125 ML IV PRN (11:52)
--- NOTE | 2024-06-30 15:15 | P.CNS ---
Date of Consult: 06/30/24 Reason for Consult: Respiratory failure pneumonia Chief Complaint: Pneumonia, sepsis History of Present Illness: Patient is 64 years of age with a history of stroke a fascia has a watters you chronic ulceration admitted with cough fever pneumonia patient is a phasic stable bilateral amputee Allergies No Known Allergies Allergy (Verified 07/13/19 19:58) Home Medications: Glucerna 1.5 Vikas 237 ml FT QID #90 bot 02/10/18 Hydralazine [Apresoline*] 25 mg FT DAILY 07/14/19 lisinopriL [Prinivil*] 10 mg FT DAILY 07/14/19 Atorvastatin Calcium [Lipitor*] 10 mg FT BEDTIME 06/29/24 Clopidogrel Bisulfate [Plavix] 75 mg FT DAILY 06/29/24 Metoprolol Succinate [Toprol Xl*] 50 mg FT DAILY 06/29/24 - Past Medical/Surgical History Diabetic: Yes -: Hx CVA with residual aphasia -: HTN -: Hyperlipidemia -: Neuropathy -: DM -: History of dysphagia now with PEG tube -: Hysterectomy -: PEG tube placement -: Amputation of right foot -: Amputation of first digit left toe -: bi BKA Psychosocial/ Personal History: Patient lives at home. She has several children. She is . - Family History Mother Medical History: Stroke Father Medical History: Heart disease - Social History Smoking Status: Unknown if ever smoked Alcohol use: No CD- Drugs: No Caffeine use: No Place of Residence: Home Review of Systems is unable to be obtained Physical Examination Temp Pulse Resp BP Pulse Ox 97.7 F 68 31 H 121/57 L 100 06/30/24 12:00 06/30/24 12:00 06/30/24 12:00 06/30/24 12:00 06/30/24 12:00 General: Alert, In no apparent distress Respiratory: Clear to auscultation bilaterally Cardiovascular: Regular rate/rhythm - Problems (1) Pneumonia Current Visit: Yes Status: Acute Plan: vPatient is [address] strokes aphasia admitted with fever patient has pneumonia worse on the left side normal white count resistant organisms including pseudomonas andacetonobacter has been isolated before in the urine. Patient has a normal white count.. CT scan of the chest reviewed including the lab work patient is mildly hypoxic blood pressure is stable no evidence of severe sepsis agreement [facility] was resistant to cefepine check also nasal culture for M RSA continue with vancomycin for now
[2024-06-30] MEDS: Meropenem 1,000 MG in NA CHLORIDE 0.9% 100 ML IV SCH (16:11)
[2024-06-30] MEDS ORDERED: GUAIFENESIN/CODEINE 5ML UCUP PO PRN (17:46)
[2024-06-30] MEDS: ATORVASTATIN 10 MG TAB FT SCH (20:05)
[2024-06-30] MEDS: VANCOMYCIN 1 GM in NA CHLORIDE 0.9% 250 ML IVPB SCH (20:05)
[2024-06-30] MEDS ORDERED: ATORVASTATIN 20 MG TAB FT SCH (21:00)
[2024-07-01 06:26] LABS: Anion Gap 7.3 mEq/L (5.0-15.0); Magnesium 1.9 mg/dL (1.6-2.4); Potassium 3.3 mEq/L (3.5-5.1)
[2024-07-01 06:32] LABS: Phosphorus 1.3 mg/dL (2.5-4.9)
[2024-07-01 06:35] LABS: Absolute Monocytes 0.5 K/uL (0.1-1.3); Absolute Neutrophil 6.4 K/uL (1.8-8.0); Basophils % 0.6 % (0-1.3); Eosinophils % 0.2 % (0-4.4); Hematocrit 29.3 % (36.0-45.0); Hemoglobin 9.9 g/dL (12.0-15.0); Lymphocytes % 12.1 % (15.3-44.8); MCH 30.4 pg (27.0-35.0); MCHC 33.6 g/dL (32.0-36.0); MCV 90.3 fL (80-100); MPV 7.8 fL (7.6-11.3); Monocytes % 5.7 % (3.3-12.3); Neutrophils % 81.4 % (41.7-73.7); Nucleated Red Blood Cells % 0.1 % (0-0); Platelets 213 thou/uL (152-406); RBC Red Blood Cell Count 3.25 M/uL (3.86-4.86); Red Cell Distribution Width 14.1 % (12.1-15.2)
[2024-07-01] MEDS: POTASSIUM PHOS IN 0.9 % NACL 15 MMOL/250 ML BAG IV ONE (08:09)
[2024-07-01] MEDS: FLUCONAZOLE 100 MG TAB FT SCH ×2 (09:00→13:35)
[2024-07-01] MEDS ORDERED: FLUCONAZOLE 100 MG TAB PO SCH (09:00)
--- NOTE | 2024-07-01 14:48 | P.PN ---
Date of Service: 07/01/24 Subjective: Alert, eyes open No acute events overnight Eating more herself per family today Still with persistent cough ROS: 10 point ROS as noted above, otherwise negative General: Other (Aphasic at baseline, eyes open) HEENT: Atraumatic, PERRLA, Mucous membr. moist/pink Neck: Supple Respiratory: Diminished Cardiovascular: No edema, Normal S1 S2 Capillary refill: <2 Seconds Gastrointestinal: Normal bowel sounds, PEG tube in place Musculoskeletal: No erythema, No warmth, Other (Bilateral BKA) Integumentary: Pressure ulcer (Sacral) Neurological: Other (Aphasic at baseline, bedbound) Urinary: Shah catheter (Placed in ER) Vitals reviewed Assessment: Severe sepsis secondary to pneumonia-bilateral worse on the left, UTI History of CVA with aphasia, dysphagia with PEG tube in place History of bilateral BKA Diabetes mellitus type 2 Hypophosphatemia Hypertension Plan: Severe sepsis secondary to pneumonia-bilateral worse on the left, UTI Blood cultures and urine culture obtained in ED-cultures with no growth in 24 hours Culture growing yeast 2+ Started fluconazole 07/01 Shah catheter placed in ED Continue broad-spectrum antibiotics with vancomycin, cefepime for now Follow cultures, pulmonology consulted and following History of CVA with aphasia, dysphagia with PEG tube in place At baseline Continue tube feeds today Continue home meds History of bilateral BKA Diabetes mellitus type 2 Q6H accheck, SSI Hypophosphatemia protocol in place Hypertension Hold oral antihypertensives tonight, monitor blood pressure she is currently septic Continue with blood pressures persistently elevated DVT PPX:Lovenox Code status:Clinical Technologist Spent Managing Pts Care (In Minutes): 35
[2024-07-02 05:42] LABS: Absolute Eosinophils 0.1 K/uL (0-0.5); Absolute Lymphocytes (CBC) 0.8 K/uL (0.7-4.9); Absolute Monocytes 0.4 K/uL (0.1-1.3); Absolute Neutrophil 4.5 K/uL (1.8-8.0); Basophils % 0.3 % (0-1.3); Eosinophils % 0.9 % (0-4.4); Hematocrit 29.4 % (36.0-45.0); Lymphocytes % 14.6 % (15.3-44.8); MCH 30.6 pg (27.0-35.0); MCHC 34.2 g/dL (32.0-36.0); MCV 89.5 fL (80-100); MPV 7.6 fL (7.6-11.3); Neutrophils % 77.2 % (41.7-73.7); Platelets 223 thou/uL (152-406); RBC Red Blood Cell Count 3.28 M/uL (3.86-4.86); Red Cell Distribution Width 14.1 % (12.1-15.2)
[2024-07-02 05:53] LABS: Anion Gap 5.3 mEq/L (5.0-15.0); Magnesium 1.6 mg/dL (1.6-2.4); Phosphorus 1.6 mg/dL (2.5-4.9); Potassium 3.3 mEq/L (3.5-5.1)
[2024-07-02] MEDS: POTASSIUM PHOS IN 0.9 % NACL 15 MMOL/250 ML BAG IV SCH (09:01)
[2024-07-02] MEDS: MAGNESIUM SULFATE 1 gm IVPB 1 GM/100 ML BAG IV ONE (09:01)
--- NOTE | 2024-07-02 14:49 | P.PN ---
Date of Service: 07/02/24 Subjective: Alert, eyes open No acute events overnight ROS: 10 point ROS as noted above, otherwise negative General: Other (Aphasic at baseline, eyes open) HEENT: Atraumatic, PERRLA, Mucous membr. moist/pink Neck: Supple Respiratory: Diminished Cardiovascular: No edema, Normal S1 S2 Capillary refill: <2 Seconds Gastrointestinal: Normal bowel sounds, PEG tube in place Musculoskeletal: No erythema, No warmth, Other (Bilateral BKA) Integumentary: Pressure ulcer (Sacral) Neurological: Other (Aphasic at baseline, bedbound) Urinary: Shah catheter (Placed in ER) Vitals reviewed Assessment: Severe sepsis secondary to pneumonia-bilateral worse on the left, UTI Acute hypoxic respiratory failure secondary to pneumonia History of CVA with aphasia, dysphagia with PEG tube in place History of bilateral BKA Diabetes mellitus type 2 Hypophosphatemia Hypertension Plan: Severe sepsis secondary to pneumonia-bilateral worse on the left, UTI Acute hypoxic respiratory failure secondary to pneumonia Blood cultures and urine culture obtained in ED-cultures with no growth in 24 hours Culture growing yeast 2+ Started fluconazole 07/01 Shah catheter placed in ED Transitioned to FT doxy and augmentin Shah DC'd 12/31 Weaning 02 Follow cultures, pulmonology consulted and following History of CVA with aphasia, dysphagia with PEG tube in place At baseline Continue tube feeds today Continue home meds History of bilateral BKA Diabetes mellitus type 2 Q6H accheck, SSI Hypophosphatemia protocol in place Hypertension Hold oral antihypertensives tonight, monitor blood pressure she is currently septic Continue with blood pressures persistently elevated DVT PPX:Lovenox Code status:Companion Caregiver Spent Managing Pts Care (In Minutes): 35
[2024-07-02] MEDS: AMOX/K CLAV 875 MG TAB PO SCH (17:00)
[2024-07-02] MEDS: DOXYCYCLINE 100 MG CAP PO SCH (20:52)
[2024-07-03 05:20] LABS: Absolute Eosinophils 0.2 K/uL (0-0.5); Absolute Lymphocytes (CBC) 1.4 K/uL (0.7-4.9); Absolute Monocytes 0.4 K/uL (0.1-1.3); Absolute Neutrophil 3.2 K/uL (1.8-8.0); Basophils % 0.7 % (0-1.3); Eosinophils % 4.4 % (0-4.4); Hematocrit 29.6 % (36.0-45.0); Hemoglobin 9.9 g/dL (12.0-15.0); Lymphocytes % 26.3 % (15.3-44.8); MCH 30.3 pg (27.0-35.0); MCHC 33.5 g/dL (32.0-36.0); MCV 90.4 fL (80-100); MPV 7.9 fL (7.6-11.3); Monocytes % 7.2 % (3.3-12.3); Neutrophils % 61.4 % (41.7-73.7); Platelets 222 thou/uL (152-406); RBC Red Blood Cell Count 3.28 M/uL (3.86-4.86); Red Cell Distribution Width 13.9 % (12.1-15.2)
[2024-07-03 05:41] LABS: Anion Gap 6.6 mEq/L (5.0-15.0); Magnesium 1.8 mg/dL (1.6-2.4); Phosphorus 1.8 mg/dL (2.5-4.9); Potassium 3.6 mEq/L (3.5-5.1)
[2024-07-03 09:17] VITALS: O2SAT 100
[2024-07-03] MEDS: POTASSIUM PHOS IN 0.9 % NACL 15 MMOL/250 ML BAG IV ONE (09:42)
[2024-07-03] MEDS: MAGNESIUM SULFATE 1 gm IVPB 1 GM/100 ML BAG IV ONE (09:43)
[2024-07-03] MEDS: lisinopriL 10 MG TAB FT SCH (10:43)
[2024-07-03] MEDS: HYDRALAZINE HCL 25 MG TABLET FT SCH (10:43)
[2024-07-03] MEDS: METOPROLOL TAR 50 MG TAB FT SCH (10:43)
[2024-07-03 11:19] LABS: Blood O2 Saturation 98.5 % (92-98.5)
[2024-07-03 11:20] LABS: Arterial Blood Carboxyhemoglob 0.8 % (0-1.5); Blood Gas Oxyhemoglobin 96.7 % (94-97); Blood Gas THB 12.4 g/dl (12-18)
[2024-07-03 11:21] LABS: Blood Gas Inspired Oxygen 0.2 %
--- NOTE | 2024-07-03 11:22 | P.PN ---
Date of Service: 07/03/24 Subjective: Alert, eyes open No acute events overnight At mental baseline, improving ROS: 10 point ROS as noted above, otherwise negative General: Other (Aphasic at baseline, eyes open) HEENT: Atraumatic, PERRLA, Mucous membr. moist/pink Neck: Supple Respiratory: Diminished Cardiovascular: No edema, Normal S1 S2 Capillary refill: <2 Seconds Gastrointestinal: Normal bowel sounds, PEG tube in place Musculoskeletal: No erythema, No warmth, Other (Bilateral BKA) Integumentary: Pressure ulcer (Sacral) Neurological: Other (Aphasic at baseline, bedbound) Urinary: Shah catheter (Placed in ER) Vitals reviewed Assessment: Severe sepsis secondary to pneumonia-bilateral worse on the left, UTI Acute hypoxic respiratory failure secondary to pneumonia History of CVA with aphasia, dysphagia with PEG tube in place History of bilateral BKA Diabetes mellitus type 2 Hypophosphatemia Hypertension Plan: Severe sepsis secondary to pneumonia-bilateral worse on the left, UTI Acute hypoxic respiratory failure secondary to pneumonia Blood cultures and urine culture obtained in ED-cultures with no growth in 24 hours Culture growing yeast 2+ Started fluconazole 07/01 Shah catheter placed in ED Transitioned to FT doxy and augmentin 07/02 Shah DC'd 12/31 Weaning 02 still needing NC 02, getting RA ABG today Follow cultures, pulmonology consulted and following History of CVA with aphasia, dysphagia with PEG tube in place At baseline Continue tube feeds today Continue home meds History of bilateral BKA Diabetes mellitus type 2 Q6H accheck, SSI Hypophosphatemia protocol in place Hypertension Hold oral antihypertensives tonight, monitor blood pressure she is currently septic Continue with blood pressures persistently elevated DVT PPX:Lovenox Code status:Site Supervisor Spent Managing Pts Care (In Minutes): 35
[2024-07-03 12:32] VITALS: BP 138/79; TEMP 97.2
--- NOTE | 2024-07-03 13:28 | P.DS ---
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 Her family reports she has had a cough for the last few days and for that reason brought her into the emergency department. Upon arrival patient was found to be febrile with a temperature of 103, labs were significant for a white blood count of 9.2 hemoglobin 11.5 CRP 21.5 BNP 1385 UA with 500 leuk esterase, white blood cells, red blood cells, urine culture reflexed. ER staff report upon placing Shah catheter that urine was milky white. CT of the chest abdomen and pelvis was obtained which showed primarily left lower lobe pneumonia as well as large amount of stool throughout the colon most severe in the rectum where there is wall thickening and adjacent inflammatory changes, erosive changes of the sacrum possibly related to decubitus ulcer and chronic osteomyelitis. Physician performed digital disimpaction which relieved the stool burden in the rectum, patient need to be admitted for severe sepsis, pneumonia, suspected UTI. Hospital Course: Assessment: Severe sepsis secondary to pneumonia-bilateral worse on the left, UTI Acute hypoxic respiratory failure secondary to pneumonia History of CVA with aphasia, dysphagia with PEG tube in place History of bilateral BKA Diabetes mellitus type 2 Hypophosphatemia Hypertension Patient was admitted to the hospital for pneumonia, sepsis. On imaging she was found to have a left lower lobe pneumonia and was treated initially with IV antibiotics. She steadily improved throughout hospitalization, her blood cultures were negative, urine culture was growing yeast. She was transitioned to antibiotics through her feeding tube and weaned off of oxygen. She is at her baseline in regards to mental status and is doing much better. She is stable for discharge and follow-up with her primary care doctor at this time. Continue home medications as previously prescribed Prescriptions for Diflucan-antifungal, Augmentin and doxycycline which are both antibiotics have been sent to the pharmacy to take for an additional 5 days. Vital Signs/Physical Exam: Temp Pulse Resp BP Pulse Ox 97.2 F 60 20 138/79 96 07/03/24 12:00 07/03/24 12:00 07/03/24 12:00 07/03/24 12:00 07/03/24 12:00 General: Alert HEENT: Atraumatic Neck: Supple, JVD not distended Respiratory: Clear to auscultation bilaterally, Normal air movement Cardiovascular: Regular rate/rhythm, Normal S1 S2 Gastrointestinal: Normal bowel sounds, No tenderness, Other (PEG in place) Musculoskeletal: No tenderness, Other (CHIN BKA) Integumentary: No rashes Neurological: Abnormal speech, Abnormal strength Laboratory Data at Discharge: WBC 5.10 thou/uL (4.3-10.9) 07/03/24 04:07 Hgb 9.9 g/dL (12.0-15.0) L 07/03/24 04:07 Hct 29.6 % (36.0-45.0) L 07/03/24 04:07 Plt Count 222 thou/uL (152-406) 07/03/24 04:07 PT 12.6 SECONDS (9.4-12.5) H 06/29/24 02:57 INR 1.13 06/29/24 02:57 APTT 29.4 SECONDS (24.3-36.9) 06/29/24 02:57 Sodium 142 mEq/L (136-145) 07/03/24 04:07 Potassium 3.6 mEq/L (3.5-5.1) 07/03/24 04:07 BUN 13 mg/dL (7-18) 07/03/24 04:07 Creatinine 0.36 mg/dL (0.55-1.02) L 07/03/24 04:07 Glucose 66 mg/dL (74-106) L 07/03/24 04:07 Phosphorus 1.8 mg/dL (2.5-4.9) L 07/03/24 04:07 Magnesium 1.8 mg/dL (1.6-2.4) 07/03/24 04:07 Total Bilirubin 0.3 mg/dL (0.2-1.0) 06/29/24 02:57 AST 15 U/L (15-37) 06/29/24 02:57 ALT 16 U/L (13-56) 06/29/24 02:57 Alkaline Phosphatase 65 U/L (45-117) 06/29/24 02:57 Home Medications: Glucerna 1.5 Vikas 237 ml FT QID #90 bot 02/10/18 Hydralazine [Apresoline*] 25 mg FT DAILY 07/14/19 lisinopriL [Prinivil*] 10 mg FT DAILY 07/14/19 Atorvastatin Calcium [Lipitor*] 10 mg FT BEDTIME 06/29/24 Clopidogrel Bisulfate [Plavix] 75 mg FT DAILY 06/29/24 Metoprolol Succinate [Toprol Xl*] 50 mg FT DAILY 06/29/24 Amox/Clavulanate [Augmentin 875-125 Tab*] 875 mg PO BIDWM 5 Days #10 tab 07/03/24 Doxycycline Hyclate 100 mg PO BID 5 Days #10 tab 07/03/24 Fluconazole [Diflucan] 100 mg PO DAILY 5 Days #5 tab 07/03/24 New Medications: Amox/Clavulanate [Augmentin 875-125 Tab*] 875 mg PO BIDWM 5 Days #10 tab Fluconazole [Diflucan] 100 mg PO DAILY 5 Days #5 tab Doxycycline Hyclate 100 mg PO BID 5 Days #10 tab Physician Discharge Instructions: Patient was admitted to the hospital for pneumonia, sepsis. On imaging she was found to have a left lower lobe pneumonia and was treated initially with IV antibiotics. She steadily improved throughout hospitalization, her blood cultures were negative, urine culture was growing yeast. She was transitioned to antibiotics through her feeding tube and weaned off of oxygen. She is at her baseline in regards to mental status and is doing much better. She is stable for discharge and follow-up with her primary care doctor at this time. Continue home medications as previously prescribed Prescriptions for Diflucan-antifungal, Augmentin and doxycycline which are both antibiotics have been sent to the pharmacy to take for an additional 5 days. Diet: tube feeds Activity: Bedrest Followup: KOJO HERNANDEZ [Primary Care Provider] - 1 Week Time spent managing pt's care (in minutes): 51
--- NOTE | 2024-07-03 14:23 | RAD REPORT ---
EXAMINATION: ONE VIEW CHEST XR CLINICAL INDICATION: Female, 64 years old.,penum[place] TECHNIQUE: Frontal chest projection is submitted. Examination is limited by patient positioning and t echnique. COMPARISON: 06/29/[address] chest. FINDINGS: Patchy bibasilar and left upper lung airspace opacities. No pneumothorax or sizable effusion. The he art is normal in size. IMPRESSION: Patchy bilateral airspace opacities as above, worsened since the prior exam, may reflect multifocal p neumonia or edema.
[2024-07-04] MEDS ORDERED: lisinopriL 20 MG TAB FT SCH (09:00)
[2024-07-04] MEDS ORDERED: HYDRALAZINE HCL 25 MG TABLET FT SCH (09:00)
== END 2024-07-03 14:53 | disposition home or self-care (01) | DRG 871 ==
LOC: ER 21:00 → ERHOLD 06-29 06:50 → 3RD-ICU 06-29 12:21 → 2ND 06-30 12:50
PROVIDERS: ADMIT Hospitalist; ATTEND Internal Medicine Sleep Medicine
PROC: 4A033R1 Measurement of Arterial Saturation, Peripheral, Percutaneous Approach (ICD-10-PCS; principal; 2024-06-29)
PROC: 0T9B70Z Drainage of Bladder with Drainage Device, Via Natural or Artificial Opening (ICD-10-PCS; 2024-07-02)
DX: A41.9 Sepsis, unspecified organism (principal); J18.9 Pneumonia, unspecified organism; J96.01 Acute respiratory failure with hypoxia; E44.0 Moderate protein-calorie malnutrition; Z68.1 Body mass index [BMI] 19.9 or less, adult; N10 Acute pyelonephritis; N39.0 Urinary tract infection, site not specified; M86.68 Other chronic osteomyelitis, other site; R65.20 Severe sepsis without septic shock; L98.429 Non-pressure chronic ulcer of back with unspecified severity; I10 Essential (primary) hypertension; E78.5 Hyperlipidemia, unspecified; E83.39 Other disorders of phosphorus metabolism; I69.320 Aphasia following cerebral infarction; I69.391 Dysphagia following cerebral infarction; R13.10 Dysphagia, unspecified; E11.40 Type 2 diabetes mellitus with diabetic neuropathy, unspecified; K52.9 Noninfective gastroenteritis and colitis, unspecified; Z93.1 Gastrostomy status; Z79.4 Long term (current) use of insulin; Z74.01 Bed confinement status; Z11.52 Encounter for screening for COVID-19; Z79.84 Long term (current) use of oral hypoglycemic drugs; Z79.02 Long term (current) use of antithrombotics/antiplatelets; Z79.899 Other long term (current) drug therapy; Z89.511 Acquired absence of right leg below knee; Z89.512 Acquired absence of left leg below knee; Z87.891 Personal history of nicotine dependence; Z89.422 Acquired absence of other left toe(s); Z89.421 Acquired absence of other right toe(s)
CPT/HCPCS: 36415; 36600; 51702; 70450; 71045; 71250; 74176; 80048; 80053; 80202; 81001; 82805; 82947; 83605; 83735; 83880; 84100; 84439; 84443; 84484; 85025; 85610; 85730; 86140; 87040; 87086; 87088; 87804; 87811; 93005; 94760; 96361; 96374; 96375; 99285; J0282; J0692; J1650; J2185; J2919; J3475; J7030; J7050; J7613

== ENCOUNTER 2024-09-30 10:43 | Inpatient (IN) | payer OTHER ==
[2024-09-30 11:56] LABS: Absolute Lymphocytes (CBC) 1.4 K/uL (0.7-4.9); Absolute Monocytes 0.7 K/uL (0.1-1.3); Absolute Neutrophil 13.9 K/uL (1.8-8.0); Basophils % 0.2 % (0-1.3); Eosinophils % 0.1 % (0-4.4); Hematocrit 31.9 % (36.0-45.0); Hemoglobin 10.3 g/dL (12.0-15.0); Lymphocytes % 8.9 % (15.3-44.8); MCH 27.8 pg (27.0-35.0); MCHC 32.2 g/dL (32.0-36.0); MCV 86.3 fL (80-100); MPV 7.6 fL (7.6-11.3); Monocytes % 4.3 % (3.3-12.3); Neutrophils % 86.5 % (41.7-73.7); Platelets 317 thou/uL (152-406); Red Cell Distribution Width 14.6 % (12.1-15.2)
[2024-09-30 12:27] LABS: ALT/SGPT 20 U/L (13-56); AST/SGOT 18 U/L (15-37); Albumin 2.4 g/dL (3.4-5.0); Albumin/Globulin Ratio 0.4 (1.1-1.8); Alkaline Phosphatase 66 U/L (45-117); Anion Gap 6.6 mEq/L (5.0-15.0); BUN Blood Urea Nitrogen 82 mg/dL (7-18); Bicarbonate 34 mEq/L (21-32); Bilirubin Total 0.3 mg/dL (0.2-1.0); Glomerular Filtration Rate 65 ml/min (=/>90); Glucose Level 181 mg/dL (74-106); Magnesium 2.1 mg/dL (1.6-2.4); Potassium 3.6 mEq/L (3.5-5.1); Protein, Total 8.4 g/dL (6.4-8.2); Sodium Level 141 mEq/L (136-145)
[2024-09-30 12:28] LABS: Bilirubin Direct < 0.2 mg/dL (0-0.2); Bilirubin Indirect, Calculated 0.1 mg/dL (0.2-0.8)
[2024-09-30 12:30] LABS: Troponin High Sensitivity 1117.6 pg/mL (<58.9)
[2024-09-30 12:38] LABS: White Blood Cell Scan OK (OK)
[2024-09-30 12:39] LABS: Blood Morphology Comment NOT SEEN (NOT SEEN); Platelet Estimate ADEQ; Platelets Clumped FEW
--- NOTE | 2024-09-30 15:48 | RAD REPORT ---
EXAM: CT Chest For Pe Angio TECHNIQUE: CT angiogram of the chest was performed following intravenous contrast administration, inc luding sagittal and coronal as well as maximum intensity projection reformats. One or more of the following dose reduction techniques were used: Automated exposure control, adjustment of the mA and k V according to patient size, and iterative reconstruction. Unless otherwise specified, incidental findings do not require dedicated imaging follow-up. INDICATION: [facility] MAIN HEMOPTYSIS Bed Name: 21 Y COMPARISON: 06/29/2024 CT. FINDINGS: LINES/TUBES: None. PULMONARY ARTERIES: Main pulmonary arteries are normal in caliber. No filling defects within the pul monary arteries to suggest pulmonary embolus, although sluggish flow is seen along one of the second order branches within the posterior left upper lobe. LUNGS AND AIRWAYS: Progressive patchy and tree-in-bud opacities in the left upper and lower lobes, wi th progressive dependent segmental consolidation in the left lower lobe. Progressive tree-in-bud opacities in the anterior peripheral right upper lobe, and to lesser extent in the central right lowe r lobe.. Progressive cavitary lesion with adjacent consolidation in the right upper lobe, abutting the minor fissure, with air-fluid level, could be communicating with a bronchus, measuring 2.1 x 1.4 x 2.4 cm. PLEURA: No effusion or pneumothorax. HEART AND MEDIASTINUM: The visualized thyroid gland is normal. Stable mildly prominent mediastinal ly mph nodes, probably reactive. No suspicious hilar or or axillary lymphadenopathy. Heart is unremarkable. No pericardial effusion. SOFT TISSUES AND BONES: No acute osseous abnormality. No significant soft tissue finding. UPPER ABDOMEN: Unremarkable. IMPRESSION: No evidence of acute central pulmonary emboli, although sluggish flow is seen along one of the second order branches within the posterior left upper lobe, could relate to slow flow versus early thrombosis. Progressive patchy airspace opacities predominantly within the left lung, with a progressive cavitary lesion lower segment right upper lobe abutting the minor fissure, concerning for worsening multifocal pneumonia, with probable right upper lobe pneumatocele.
--- NOTE | 2024-09-30 16:58 | EDPHYS ---
Physician Documentation [facility] Name: Juana Navarro Age: 64 yrs Sex: Female : 1960 Arrival Date: 09/30/2024 Time: 10:43 Bed 5 Private MD: ED Physician Farhan Mackay HPI: 09/30 12:07 This 64 yrs old Female presents to ER via EMS with complaints of coughing up rt blood. 12:07 History limited due to number patient. Patient presents to the ED by EMS with reports rt of hemoptysis starting today. No further history could be obtained per patient, symptoms are moderate in severity, no other aggravating or alleviating factors.. Historical: - Allergies: 13:53 No Known Allergies; kc6 - PMHx: 10:59 bed bound; NPO; nonverbal; G Tube; CVA; Hypertension; Diabetes - NIDDM; ld1 - PSHx: 10:59 Frandy BKA; G tube placement; ld1 - Immunization history:: Adult Immunizations up to date. - Infectious Disease History:: Denies. - Social history:: Smoking status: Patient denies any tobacco usage or history of. ROS: 12:07 Unable to obtain ROS due to Nonverbal patient, rt Exam: 12:07 Chest/axilla: Normal chest wall appearance and motion. Nontender with no deformity. rt No lesions are appreciated. Cardiovascular: Regular rate and rhythm with a normal S1 and S2. No gallops, murmurs, or rubs. Normal PMI, no JVD. No pulse deficits. Respiratory: Lungs have equal breath sounds bilaterally, clear to auscultation and percussion. No rales, rhonchi or wheezes noted. No increased work of breathing, no retractions or nasal flaring. Abdomen/GI: Soft, non-tender, with normal bowel sounds. No distension or tympany. No guarding or rebound. No evidence of tenderness throughout. Skin: Warm, dry with normal turgor. Normal color with no rashes, no lesions, and no evidence of cellulitis. 12:07 Constitutional: The patient appears Nonverbal, chronically ill-appearing 12:07 ECG was reviewed by the Attending Physician. Vital Signs: 11:56 BP 107 / 68; Pulse 80; Resp 18; Temp 97.8(TE); Pulse Ox 92% on R/A; Height 5 ft. 2 in. ld1 ; Pain 0/10; 11:58 Weight 33.57 kg; ld1 13:53 BP 133 / 53; Pulse 85; Resp 16 S; Pulse Ox 100% on R/A; kc6 14:55 BP 111 / 84; Pulse 62; Resp 18; Pulse Ox 98% on R/A; ph 17:30 BP 132 / 70; Pulse 75; Resp 22; Pulse Ox 95% on R/A; ph 18:43 BP 139 / 63; Pulse 63; Resp 16 S; Pulse Ox 98% on R/A; kc6 11:56 Pain Scale: Adult ld1 MDM: 10:48 Medical Screening Exam initiated rt 17:11 Differential Diagnosis ACS, pneumonia, pulmonary embolism. Data reviewed: vital signs, rt nurses notes, lab test result(s), EKG, radiologic studies. Consideration of Admission/Observation Patient was admitted/placed on observation. Management of patient was discussed with the following: Hospitalist: Agrees to admit. I considered the following discharge prescriptions or medication management in the emergency department Medications were administered in the Emergency Department. See MAR. Independent interpretation of the following test(s) in the Emergency Department CT Scan: My interpretation is Pneumonia seen on my interpretation of CT scan images. Test considered but Not performed: X-ray: CT scan performed, x-rays redundant. Care significantly affected by the following chronic conditions: CVA. Counseling: I had a detailed discussion with the patient and/or guardian regarding the historical points, exam findings, and any diagnostic results supporting the discharge/admit diagnosis, lab results, radiology results, the need for further work-up and treatment in the hospital. Response to treatment: There is no appreciated change of the patient's symptoms at this time. 17:11 ED course: Patient's initial presentation was not thought to be due to infectious rt etiology, once pneumonia was identified on CT scan, blood cultures, antibiotics were given. Patient is not hypotensive, do not believe that fluids are indicated this time and will likely worsen the patient's respiratory status. 09/30 10:49 Order name: Basic Metabolic Panel; Complete Time: 12:36 rt 09/30 10:49 Order name: CBC with Diff; Complete Time: 12:41 rt 09/30 10:49 Order name: LFT's; Complete Time: 12:36 rt 09/30 10:49 Order name: Magnesium; Complete Time: 12:36 rt 09/30 10:49 Order name: Troponin HS; Complete Time: 12:36 rt 09/30 12:39 Order name: CBC Smear Scan; Complete Time: 12:41 EDMS 09/30 16:08 Order name: Blood Culture Adult (2) rt 09/30 16:08 Order name: Lactate w/ 2H reflex if indic. rt 09/30 16:08 Order name: Protime (+inr) rt 09/30 16:08 Order name: Ptt, Activated rt 09/30 18:05 Order name: Protein, Total EDMS 09/30 18:05 Order name: T4 Free EDMS 09/30 18:05 Order name: Thyroid Stimulating Hormone EDMS 09/30 18:05 Order name: CBC with Automated Diff EDMS 09/30 18:05 Order name: CBC with Automated Diff EDMS 09/30 18:05 Order name: CBC with Automated Diff EDMS 09/30 18:05 Order name: CBC with Automated Diff EDMS 09/30 18:05 Order name: Comprehensive Metabolic Panel EDMS 09/30 18:05 Order name: Comprehensive Metabolic Panel EDMS 09/30 18:05 Order name: Comprehensive Metabolic Panel EDMS 09/30 18:05 Order name: Comprehensive Metabolic Panel EDMS 09/30 18:05 Order name: Lipid Profile EDMS 09/30 18:05 Order name: Lipid Profile EDMS 09/30 18:05 Order name: Magnesium EDMS 09/30 18:05 Order name: Magnesium EDMS 09/30 18:05 Order name: Magnesium EDMS 09/30 18:05 Order name: Magnesium EDMS 09/30 18:05 Order name: NT PRO-BNP EDMS 09/30 18:06 Order name: NT PRO-BNP EDMS 09/30 18:06 Order name: NT PRO-BNP EDMS 09/30 18:06 Order name: NT PRO-BNP EDMS 09/30 18:06 Order name: Phosphorus EDMS 09/30 18:06 Order name: Phosphorus EDMS 09/30 18:06 Order name: Phosphorus EDMS 09/30 18:06 Order name: Phosphorus EDMS 09/30 18:06 Order name: Troponin High Sensitivity EDMS 09/30 18:06 Order name: Troponin High Sensitivity EDMS 09/30 18:06 Order name: Troponin High Sensitivity EDMS 09/30 18:06 Order name: Troponin High Sensitivity EDMS 09/30 18:06 Order name: Sputum Culture EDMS 09/30 18:07 Order name: Type and Screen EDMS 09/30 18:10 Order name: Protime (+INR) EDMS 09/30 18:10 Order name: PTT, Activated Partial Thromb EDMS 09/30 10:49 Order name: CT Chest For PE Angio; Complete Time: 15:51 rt 09/30 10:49 Order name: EKG; Complete Time: 10:49 rt 09/30 18:05 Order name: CONS Physician Consult EDMS 09/30 18:07 Order name: CONS Physician Consult EDMS 09/30 18:10 Order name: EKG Electrocardiogram EDMS 09/30 18:10 Order name: EKG Electrocardiogram EDMS 09/30 18:10 Order name: EKG Electrocardiogram EDMS 09/30 18:10 Order name: EKG Electrocardiogram EDMS 09/30 10:49 Order name: Cardiac monitoring; Complete Time: 11:57 rt 09/30 10:49 Order name: EKG - Nurse/Tech; Complete Time: 11:57 rt 09/30 10:49 Order name: IV Saline Lock; Complete Time: 11:50 rt 09/30 10:49 Order name: Labs collected and sent; Complete Time: 11:50 rt 09/30 10:49 Order name: O2 Per Protocol; Complete Time: 11:42 rt 09/30 10:49 Order name: O2 Sat Monitoring; Complete Time: 11:42 rt 09/30 16:08 Order name: Accucheck; Complete Time: 16:11 rt 09/30 16:08 Order name: IV Saline Lock - Large Bore; Complete Time: 16:11 rt 09/30 16:08 Order name: Vital Signs; Complete Time: 16:11 rt EC:07 Rate is 69 beats/min. Rhythm is regular, Normal Sinus Rhythm with No ectopy. QRS [place] rt is Normal. [place] interval is normal. QRS interval is normal. QT interval is normal. No Q waves. Interpreted by me. Administered Medications: 18:27 Drug: LevaQUIN IVPB 750 mg IVPB once Route: IVPB; Site: right antecubital; kc6 Disposition Summary: 09/30/24 20:58 Hospitalization Ordered Notes: Hospitalization Status: Inpatient Admission(09/30/24 20:58) kl Provider: Farhan Mackay(09/30/24 20:58) shannan Location: Intensive Care Unit(09/30/24 20:58) kl Condition: Fair(09/30/24 20:58) kl Bed/Room Type: Standard(09/30/24 20:58) kl Room Assignment: 8-(09/30/24 21:18) kl Diagnosis - Subsequent non-ST elevation (NSTEMI) myocardial infarction kl Forms: - Medication Reconciliation Form kl - SBAR form kl - Leadership Thank You Letter kl Critical care time excluding procedures: 17:11 Critical care time: Bedside Care: 30 minutes, Consultation: 5 minutes. Total time: 35 rt minutes Signatures: Dispatcher [employer] EDMS Monique Crow RN Zenia Eisenberg RN RN ld1 Evonne Cadena RN RN kc6 Farhan Mackay MD MD rt Corrections: (The following items were deleted from the chart) 10:49 10:49 BASIC METABOLIC PANEL+C.LAB.BRZ ordered. EDMS EDMS 10:49 10:49 CBC+H.LAB.BRZ ordered. EDMS EDMS 10:49 10:49 HEPATIC FUNCTION+C.LAB.BRZ ordered. EDMS EDMS 10:49 10:49 MAGNESIUM+C.LAB.BRZ ordered. EDMS EDMS 10:49 10:49 Troponin High Sensitivity+C.LAB.BRZ ordered. EDMS EDMS 10:49 10:49 Chest For PE Angio+CT.RAD.BRZ ordered. EDMS EDMS 11:00 10:59 PMHx: NPO, aspiration; ld1 ld1 20:50 16:57 Telemetry/MedSurg (Inpatient) rt kl 20:50 16:57 rt kl 20:57 16:57 Inpatient Admission rt kl 20:57 16:57 Jose Miguel Woodson rt kl 20:57 16:57 Stable rt kl 20:57 16:57 new rt kl 20:57 16:57 are unchanged rt kl 20:57 16:57 Standard rt kl 20:57 16:57 Hemoptysis rt kl 20:57 16:57 Community-acquired pneumonia rt kl 20:57 16:57 NSTEMI rt kl 20:57 20:50 Intensive Care Unit kl kl 20:57 20:50 8- kl kl 21:18 20:58 kl kl
--- NOTE | 2024-09-30 16:58 | ER ---
Nurse's Notes [facility] Name: Juana Navarro Age: 64 yrs Sex: Female : 1960 Arrival Date: 09/30/2024 Time: 10:43 Bed 5 Private MD: Diagnosis: Subsequent non-ST elevation (NSTEMI) myocardial infarction Presentation: 09/30 11:00 Chief complaint: EMS states: toned out to patient home for Coughing up blood since ld1 yesterday. Coronavirus screen: At this time, the client does not indicate any symptoms associated with coronavirus-19. Ebola Screen: No symptoms or risks identified at this time. Risk Assessment: Do you want to hurt yourself or someone else? Patient reports no desire to harm self or others. 11:00 Method Of Arrival: EMS: [facility] ld1 11:00 Acuity: DAVID 3 ld1 11:00 Onset of symptoms was September 30, 2024. ld1 11:57 Initial Sepsis Screen: Does the patient meet any 2 criteria? No. Patient's initial ld1 sepsis screen is negative. Does the patient have a suspected source of infection? No. Patient's initial sepsis screen is negative. Triage Assessment: 11:00 General: Appears in no apparent distress. comfortable, Behavior is calm, cooperative, ld1 appropriate for age. Pain: Denies pain. 11:57 EENT: No signs and/or symptoms were reported regarding the EENT system. Neuro: Level of ld1 Consciousness is awake, alert, obeys commands, Oriented to person, place, time, situation, Appropriate for age. Cardiovascular: Capillary refill < 3 seconds Patient's skin is warm and dry. Respiratory: Airway is patent Respiratory effort is even, unlabored, Parent/caregiver reports the patient having cough that is productive, blood tinged. GI: Abdomen is flat, non-distended. : No signs and/or symptoms were reported regarding the genitourinary system. Derm: No signs and/or symptoms reported regarding the dermatologic system. Musculoskeletal: No signs and/or symptoms reported regarding the musculoskeletal system. Historical: - Allergies: 13:53 No Known Allergies; kc6 - PMHx: 10:59 bed bound; NPO; nonverbal; G Tube; CVA; Hypertension; Diabetes - NIDDM; ld1 - PSHx: 10:59 Frandy BKA; G tube placement; ld1 - Immunization history:: Adult Immunizations up to date. - Infectious Disease History:: Denies. - Social history:: Smoking status: Patient denies any tobacco usage or history of. Screenin:55 [facility] ED Fall Risk Assessment (Adult) History of falling in the last 3 months, ph including since admission No falls in past 3 months (0 pts) Confusion or Disorientation Yes (5 pts) Intoxicated or Sedated No (0 pts) Impaired Gait Yes (1 pt) Mobility Assist Device Used No (0 pt) Altered Elimination Yes (1 pt) Score/Fall Risk Level 3 or more points = High Risk Oriented to surroundings, Maintained a safe environment, Hourly rounding (assess needs \T\ fall precautionary measures) done, Used ambulatory aids as needed (educated on \T\ assisted with). Abuse screen: Denies threats or abuse. Denies injuries from another. Nutritional screening: No deficits noted. Tuberculosis screening: No symptoms or risk factors identified. Assessment: 11:58 Reassessment: See triage assessment. ld1 12:58 Reassessment: Patient appears in no apparent distress at this time. No changes from kc6 previously documented assessment. Patient and/or family updated on plan of care and expected duration. Pain level reassessed. 13:53 Reassessment: Patient appears in no apparent distress at this time. No changes from kc6 previously documented assessment. Patient and/or family updated on plan of care and expected duration. Pain level reassessed. 14:56 Reassessment: Patient appears in no apparent distress at this time. No changes from previously documented assessment. 15:56 Reassessment: Patient appears in no apparent distress at this time. No changes from kc6 previously documented assessment. Patient and/or family updated on plan of care and expected duration. Pain level reassessed. 16:56 Reassessment: Patient appears in no apparent distress at this time. No changes from kc6 previously documented assessment. Patient and/or family updated on plan of care and expected duration. Pain level reassessed. 17:56 Reassessment: Patient appears in no apparent distress at this time. No changes from kc6 previously documented assessment. Patient and/or family updated on plan of care and expected duration. Pain level reassessed. 18:43 Reassessment: Patient appears in no apparent distress at this time. No changes from kc6 previously documented assessment. Patient and/or family updated on plan of care and expected duration. Pain level reassessed. Vital Signs: 11:56 BP 107 / 68; Pulse 80; Resp 18; Temp 97.8(TE); Pulse Ox 92% on R/A; Height 5 ft. 2 in. ld1 ; Pain 0/10; 11:58 Weight 33.57 kg; ld1 13:53 BP 133 / 53; Pulse 85; Resp 16 S; Pulse Ox 100% on R/A; kc6 14:55 BP 111 / 84; Pulse 62; Resp 18; Pulse Ox 98% on R/A; ph 17:30 BP 132 / 70; Pulse 75; Resp 22; Pulse Ox 95% on R/A; ph 18:43 BP 139 / 63; Pulse 63; Resp 16 S; Pulse Ox 98% on R/A; kc6 11:56 Pain Scale: Adult ld1 ED Course: 10:46 Patient arrived in ED. em1 10:47 Farhan Mackay MD is Attending Physician. rt 11:00 Triage completed. ld1 11:00 Maintain EMS IV. Dressing intact. Good blood return noted. Site clean \T\ dry. Gauge \T\ ld 1 site: 22g RH. 11:50 Inserted saline lock: 22 gauge in right antecubital area, using aseptic technique. ld1 Blood collected. Flushed with 10 mL NS. 11:56 Zenia Eugene, RN is Primary Nurse. ld1 11:57 Arm band placed on right wrist. ld1 11:58 No provider procedures requiring assistance completed. ld1 11:58 Patient has correct armband on for positive identification. Placed in gown. Bed in low ld1 position. Call light in reach. Side rails up X2. monitor worker on. Pulse ox on. NIBP on. Door closed. Noise minimized. Warm blanket given. 12:30 Notified ED physician of a critical lab result(s). troponin of 1,117-Dr. Mackay. ap3 13:05 CT Chest For PE Angio In Process Unspecified. EDMS 16:57 Jose Miguel Woodson is Hospitalizing Provider. rt 17:21 Inserted saline lock: 22 gauge in left forearm, using aseptic technique. Blood kc6 collected. Flushed with 10 mL NS. 20:57 Farhan Mackay MD is Hospitalizing Provider. kl 22:06 Patient admitted, IV remains in place. kc6 Administered Medications: 18:27 Drug: LevaQUIN IVPB 750 mg IVPB once Route: IVPB; Site: right antecubital; kc6 Medication: 11:58 VIS not applicable for this client. ld1 Outcome: 16:57 Decision to Hospitalize by Provider. rt 20:58 Decision to Hospitalize by Provider. 22:06 Admitted to ICU accompanied by nurse, accompanied by tech, via stretcher, room 8, on kc6 monitor, with chart, Report called to POLLY PAGE 22:06 Condition: good 22:06 Instructed on the need for admit, 22:06 Patient left the ED. kc6 Signatures: Dispatcher [employer] EDMS Moniuqe Crow RN RN Ruel Jenkins em1 Elisa Powell RN RN Ebonie Crook RN RN ap3 Zenia Eugene RN RN ld1 Evonne Cadena RN RN kc6 Farhan Mackay MD MD rt Corrections: (The following items were deleted from the chart) 11:00 10:59 PMHx: NPO, aspiration; ld1 ld1 11:01 11:00 Chief complaint: EMS states: toned out to patient home for Coughing up blood. ld1 ld1
--- NOTE | 2024-09-30 17:15 | P.HP ---
Certification for Inpatient Patient admitted to: Inpatient <Filomena Riggins - Last Filed: 10/02/24 16:17> Patient History Date of Service: 10/02/24 History of Present Illness: 64-year-old female with a past medical history CVA, aphasia, nonverbal, severe protein calorie malnutrition, stage III sacral ulcer, Frandy BKA; G tube placement; presents to the emergency room with hemoptysis. Hospital medical record symptoms started prior to arrival. Patient is nonverbal, resides at home with family. Family request patient be a full code at this time patient is emaciated, severe protein calorie malnutrition, has a noted sacral wound stage III-IV. Aphasia, nonverbal. Receives feeding via PEG tube. ER evaluation had noted hypokalemia, elevated troponin, leukocytosis likely secondary to aspiration pneumonia. Imaging shows cavitation on chest x-ray. Plan is to treat with empiric treatment of tuberculosis until cultures are available. Plan to admit for NSTEMI, stage IV sacral ulcer, severe protein calorie malnutrition, ICU - Past Medical/Surgical History Diabetic: Yes -: Hx CVA with residual aphasia -: HTN -: Hyperlipidemia -: Neuropathy -: DM -: History of dysphagia now with PEG tube -: Hysterectomy -: PEG tube placement -: Amputation of right foot -: Amputation of first digit left toe -: bi BKA Psychosocial/ Personal History: Patient lives at home. She has several children. She is . - Family History Mother -: Stroke Father -: Heart disease - Social History Alcohol use: No CD- Drugs: No Caffeine use: No <Filomena Riggins - Last Filed: 10/02/24 16:17> Date of Service: 10/03/24 <Sanya Torres - Last Filed: 10/03/24 10:02> Allergies No Known Allergies Allergy (Verified 07/13/19 19:58) Home Medications: Glucerna 1.5 Vikas 237 ml FT QID #90 bot 02/10/18 Hydralazine [Apresoline*] 25 mg FT DAILY 07/14/19 lisinopriL [Prinivil*] 10 mg FT DAILY 07/14/19 Atorvastatin Calcium [Lipitor*] 10 mg FT BEDTIME 06/29/24 Clopidogrel Bisulfate [Plavix] 75 mg FT DAILY 06/29/24 Metoprolol Succinate [Toprol Xl*] 50 mg FT DAILY 06/29/24 Review of Systems 10-point ROS is otherwise unremarkable <Filomena Riggins - Last Filed: 10/02/24 16:17> Physical Examination - Physical Exam General: Alert, Oriented x3, Cachectic, Other (Responds to verbal stimuli, nonverbal) HEENT: Atraumatic, Normocephalic Neck: Supple, 2+ carotid pulse no bruit, JVD not distended Respiratory: Normal air movement, Diminished Cardiovascular: Normal pulses, Regular rate/rhythm, Normal S1 S2 Capillary refill: <2 Seconds Gastrointestinal: Normal bowel sounds Musculoskeletal: Other (Bilateral below the knee amputation, emaciated, moderate to severe burning bony prominences) Integumentary: Other (Stage III-IV sacral ulcer,) Neurological: Abnormal gait, Abnormal speech, Abnormal strength - Studies Laboratory Data (last 24 hrs) 09/30/24 09/30/24 11:48 11:48 WBC 16.10 H Hgb 10.3 L Hct 31.9 L Plt Count 317 Sodium 141 Potassium 3.6 BUN 82 H Creatinine 0.97 Glucose 181 H Magnesium 2.1 Total Bilirubin 0.3 AST 18 ALT 20 Alkaline Phosphatase 66 <Filomena Riggins - Last Filed: 10/02/24 16:17> Assessment and Plan - Problems (Diagnosis) (1) NSTEMI (non-ST elevated myocardial infarction) Current Visit: Yes Status: Acute (2) Aspiration pneumonia Current Visit: Yes Status: Acute (3) TB lung cavitation, exam unkn Current Visit: Yes Status: Acute (4) Stage III pressure ulcer of sacral region Current Visit: Yes Status: Acute (5) Severe protein-calorie malnutrition Current Visit: Yes Status: Acute (6) Aphasia Current Visit: Yes Status: Chronic (7) Cerebrovascular accident (CVA) Onset Date: 02/03/18 Current Visit: No Status: Chronic Qualifiers: Laterality of affected vessel: unspecified - Plan Assessment plan NSTEMI admit to ICU telemetry Cardiology consult, Echo ordered, Acute hypoxic respiratory failure secondary aspiration Aspiration pneumonia Cavitary lesion, Pulmonary consulted, Empiric treatment of TB Isolation precaution Zosyn, vancomycin Stage III sacral ulcer Severe protein calorie malnutrition Wound care care to consult Dietitian consult Trend cultures if obtained CVA -nonverbal aphasia Bilateral lower extremity below the knee amputation Fall precautions Full code DVT heparin Diet PEG tube feeding Disposition Home with home health with Discharge Plan: Home - Advance Directives Does patient have a Living Will: No Does patient have a Durable POA for Healthcare: No - Code Status/Comfort Care Code Status: Full Code Critical Care: Yes Time Spent Managing Pts Care (In Minutes): 65 <Filomena Riggins - Last Filed: 10/02/24 16:17> Date of Service: 09/30/24 Patient was seen and examined. Events of the last 24 hours have been noted. Spoke with with NORMA regarding patient's clinical picture after evaluating and examining the patient independently. I performed a substantial part of the MDM during this patient's care today. I personally made or approved the documented management plan and acknowledge its risk of complications. I agree with the findings and documentation provided in the NORMA's notes. Patient admitted from home with aspiration pneumonia. At this time we will continue with antibiotic therapy. Spoke with family about palliative care. They are going to discuss this amongst each other. Patient lives at home and gets tube feedings. She has been making a lot of secretions. Try a scopolamine patch as well as ipratropium. Continue with antibiotic therapy. Patient will be admitted to ICU because of her low blood pressure. <Sanya Torres - Last Filed: 10/03/24 10:02>
[2024-09-30 17:44] LABS: PTT, Activated Partial Thromb 27.6 SECONDS (24.3-36.9); Protime INR 1.24
[2024-09-30] MEDS ORDERED: ONDANSETRON 4 MG/2 ML VIAL IV PRN (17:59)
[2024-09-30] MEDS ORDERED: ACETAMINOPHEN 500 MG TAB PO PRN (17:59)
[2024-09-30] MEDS ORDERED: Levofloxacin 750mg IV 750 MG/150 ML BAG IV ONE (18:24)
[2024-09-30] MEDS: Levofloxacin 750mg IV 750 MG/150 ML BAG IV SCH (19:00)
[2024-09-30] MEDS: NA CHLORIDE 0.9% 1,000 ML IV SCH (19:00)
[2024-09-30] MEDS ORDERED: HEPARIN/D5W 25,000 UNIT/500 ML BAG IV ONE (20:43)
[2024-09-30] MEDS ORDERED: HEPARIN 5000 UNIT/ML 1 ML VIAL ONE (20:43)
[2024-09-30] MEDS: ATORVASTATIN 40 MG TAB PO SCH (21:00)
[2024-09-30] MEDS: HEPARIN/D5W 25,000 UNIT/500 ML BAG IV SCH (21:00)
[2024-09-30] MEDS ORDERED: NA CHLORIDE 0.9% 1,000 ML ONE (21:37)
[2024-09-30 22:01] LABS: Protein, Total 8.3 g/dL (6.4-8.2); Thyroid Stimulating Hormone 1.59 uIU/mL (0.358-3.740)
[2024-10-01] MEDS: PIPER TAZO 3.375 GM in NA CHLORIDE 0.9% 100 ML IV SCH (01:15)
[2024-10-01 05:32] LABS: Absolute Lymphocytes (CBC) 1.2 K/uL (0.7-4.9); Absolute Monocytes 0.5 K/uL (0.1-1.3); Absolute Neutrophil 6.4 K/uL (1.8-8.0); Basophils % 0.3 % (0-1.3); Eosinophils % 0.5 % (0-4.4); Hematocrit 25.1 % (36.0-45.0); Hemoglobin 8.4 g/dL (12.0-15.0); Lymphocytes % 14.2 % (15.3-44.8); MCH 28.9 pg (27.0-35.0); MCHC 33.3 g/dL (32.0-36.0); MCV 86.9 fL (80-100); MPV 8.1 fL (7.6-11.3); Nucleated Red Blood Cells % 0.1 % (0-0); Platelets 220 thou/uL (152-406); RBC Red Blood Cell Count 2.89 M/uL (3.86-4.86); Red Cell Distribution Width 14.2 % (12.1-15.2)
[2024-10-01 05:48] LABS: AST/SGOT 13 U/L (15-37); Albumin 1.6 g/dL (3.4-5.0); Albumin/Globulin Ratio 0.3 (1.1-1.8); Alkaline Phosphatase 41 U/L (45-117); Anion Gap 9.1 mEq/L (5.0-15.0); BUN Blood Urea Nitrogen 54 mg/dL (7-18); Bicarbonate 25 mEq/L (21-32); Bilirubin Total 0.3 mg/dL (0.2-1.0); Globulin 4.6 g/dL (2.3-3.5); Glomerular Filtration Rate 92 ml/min (=/>90); Glucose Level 190 mg/dL (74-106); HDL Cholesterol 33 mg/dL (40-60); LDL Cholesterol, Calculated 25 mg/dL (<130); LDL Cholesterol,Calc NonReport 25; Magnesium 1.5 mg/dL (1.6-2.4); NT PRO-BNP 2480 pg/mL (<125); Phosphorus 2.1 mg/dL (2.5-4.9); Potassium 3.1 mEq/L (3.5-5.1); Protein, Total 6.2 g/dL (6.4-8.2); Sodium Level 143 mEq/L (136-145)
[2024-10-01 05:52] LABS: ALT/SGPT < 14 U/L (13-56)
[2024-10-01] MEDS: POTASSIUM PHOS IN 0.9 % NACL 15 MMOL/250 ML BAG IV ONE (06:18)
[2024-10-01] MEDS: Magnesium Sulfate 2gm IVPB 2 G/50 ML BAG IV ONE (06:19)
[2024-10-01 07:59] LABS: PT Prothrombin Time 15.1 SECONDS (9.4-12.5); Protime INR 1.44
[2024-10-01 08:01] LABS: PTT, Activated Partial Thromb > 400.0 SECONDS (24.3-36.9)
[2024-10-01] MEDS: KCL 20 MEQ/100 mL IVPB 20 MEQ/100 ML BAG IV ONE (09:14)
[2024-10-01] MEDS: ENOXAPARIN 30 MG/0.3 ML SQ SCH ×2 (13:00→13:33)
[2024-10-01] MEDS: GLUCERNA 1.5 CAL 1,000 ML BOT FT SCH (13:00)
--- NOTE | 2024-10-01 15:09 | EKG ---
Test Date: 2024-09-30 Test Time: 12:00:08 Core Paster: DUNIA MEASUREMENT RESULTS: Intervals: Rate: 69 WY: 154 QRSD: 86 QT: 366 QTc: 392 [employer]: P: 72 WY: 154 QRS: 71 T: 80 INTERPRETIVE STATEMENTS: Normal sinus rhythm Nonspecific ST abnormality Abnormal ECG Compared to ECG 06/29/2024 02:39:15 ST (T wave) deviation now present Sinus tachycardia no longer present Electronically Signed On 10-01-24 15:06:40 [employer] by Fan Kramer
--- NOTE | 2024-10-01 18:14 | CON ---
Date of Consultation: 10/01/2024 Reason For Consultation: Elevated troponin. History Of Present Illness: This is a 64-year-old female who presented to emergency room because of coughing up blood. Denies having any chest pain. Troponins were slightly elevated and are trending down. The patient is a very poor historian, could not get any history from her. She apparently has history of CVA and amputation of both lower extremities and she gets fed by G-tube. Past Medical History: Hypertension, CVA, diabetes, peripheral vascular disease. Medications: Refer reconciliation sheet for detailed list. Allergies: NO KNOWN DRUG ALLERGIES. Past Surgical History: Bilateral [id number] amputation and G-tube placement. Family History: No premature coronary artery disease or cancer. Social History: Does not smoke or drink. Does not use any drugs. Review of Systems: All systems reviewed are negative except as mentioned in HPI. Physical Examination: Vital Signs: Reviewed. Head and Neck: Pupils are equal, reactive to light. Intact eye movements. No cervical lymphadenopa thy. Neck is supple. Thyroid is not enlarged. Lungs: Rhonchi bilaterally. No accessory muscle use or muscle retraction. Heart: Regular rate and rhythm. No extra sounds. Abdomen: Soft, nontender. Bowel sounds positive. No organomegaly. No masses or hernia. No rigidi ty or rebound. Extremities: No clubbing, cyanosis. Intact pulses. Skin: No rashes. Neurologic: Alert, awake with no new focal deficits appreciated. Lymph Nodes: No cervical or axillary lymphadenopathy. Investigations: Troponin is 562 down from 1117. Assessment/recommendations: 1.Elevated troponin. No chest pain. Definitely, she is a high risk for cardiac disease. At this p oint, she will need cardiac evaluation, but there is a concern about possible tuberculosis versus sev ere pneumonia with abscess. At this point, discontinue IV heparin and she can be placed on Lovenox i nstead. Obtain echocardiogram and once she is more stable and when there is no concern about being c ontagious, then a stress test versus coronary angiogram will be recommended. 2.Pneumonia, possible abscess versus tuberculosis, on wide-spectrum antibiotics and on isolation. 3.Dyslipidemia. Continue Lipitor 40 mg. SR/MODL Voice ID: [id number] Report ID: [id number]
--- NOTE | 2024-10-01 18:59 | P.CNS ---
Date of Consult: 10/01/24 Reason for Consult: Bilateral pneumonia Chief Complaint: Bilateral pneumonia hemoptysis History of Present Illness: Patient is 64 years of age and nonverbal presented with hemoptysis bilateral amputee has a peg tube History of a stroke Allergies No Known Allergies Allergy (Verified 07/13/19 19:58) Home Medications: Glucerna 1.5 Vikas 237 ml FT QID #90 bot 02/10/18 Hydralazine [Apresoline*] 25 mg FT DAILY 07/14/19 lisinopriL [Prinivil*] 10 mg FT DAILY 07/14/19 Atorvastatin Calcium [Lipitor*] 10 mg FT BEDTIME 06/29/24 Clopidogrel Bisulfate [Plavix] 75 mg FT DAILY 06/29/24 Metoprolol Succinate [Toprol Xl*] 50 mg FT DAILY 06/29/24 - Past Medical/Surgical History Diabetic: Yes -: Hx CVA with residual aphasia -: HTN -: Hyperlipidemia -: Neuropathy -: DM -: History of dysphagia now with PEG tube -: Hysterectomy -: PEG tube placement -: Amputation of right foot -: Amputation of first digit left toe -: bi BKA Psychosocial/ Personal History: Patient lives at home. She has several children. She is . - Family History Mother Medical History: Stroke Father Medical History: Heart disease - Social History Smoking Status: Unknown if ever smoked Alcohol use: No CD- Drugs: No Caffeine use: No Place of Residence: Home Review of Systems is unable to be obtained Physical Examination Temp Pulse Resp BP Pulse Ox 97.8 F 66 19 139/107 H 98 10/01/24 16:00 10/01/24 18:00 10/01/24 18:00 10/01/24 18:00 10/01/24 18:00 General: Alert, Unresponsive Respiratory: Clear to auscultation bilaterally Cardiovascular: Normal S1 S2 - Problems (1) Pneumonia Current Visit: No Status: Acute Plan: Patient is 64 years of age admitted with hemoptysis she has a cavity in the right upper lobe infiltrate in the left upper lobe most likely is aspiration pneumonia with cavitation however I agree with QuantiFERON sputum test empiric treatment with antituberculous therapy labs reviewed mildly hypokalemic troponin is elevated BNP is also elevated white count is declined hemoglobin is also slightly declined patient has no further hemoptysis blood pressure is stable resume blood pressure pills empiric treatment for tuberculosis until cultures are available Also add vancomycin for the possibility of MRSA infection Qualifiers: Pneumonia type: aspiration pneumonia Aspiration pneumonia type: unspecified Laterality: right Lung location: upper lobe of lung Qualified Code(s): J69.0 - Pneumonitis due to inhalation of food and vomit
[2024-10-01] MEDS ORDERED: VANCOMYCIN 1 GM in NA CHLORIDE 0.9% 250 ML IVPB SCH (20:00)
[2024-10-01] MEDS: ATORVASTATIN 20 MG TAB FT SCH (20:39)
[2024-10-01] MEDS: VANCOMYCIN 0.75 GM in NA CHLORIDE 0.9% 250 ML IVPB ONE (20:39)
[2024-10-02 05:09] LABS: Absolute Eosinophils 0.1 K/uL (0-0.5); Absolute Lymphocytes (CBC) 1.4 K/uL (0.7-4.9); Absolute Monocytes 0.6 K/uL (0.1-1.3); Absolute Neutrophil 6.4 K/uL (1.8-8.0); Basophils % 0.4 % (0-1.3); Eosinophils % 1.7 % (0-4.4); Hematocrit 27.3 % (36.0-45.0); Hemoglobin 9.2 g/dL (12.0-15.0); Lymphocytes % 16.3 % (15.3-44.8); MCH 28.7 pg (27.0-35.0); MCHC 33.6 g/dL (32.0-36.0); MCV 85.4 fL (80-100); Neutrophils % 74.6 % (41.7-73.7); Platelets 255 thou/uL (152-406); Red Cell Distribution Width 13.9 % (12.1-15.2)
[2024-10-02 05:20] VITALS: BMI 14.8
[2024-10-02 05:38] LABS: ALT/SGPT < 14 U/L (13-56); AST/SGOT 13 U/L (15-37); Albumin/Globulin Ratio 0.4 (1.1-1.8); Alkaline Phosphatase 57 U/L (45-117); Anion Gap 7.3 mEq/L (5.0-15.0); BUN Blood Urea Nitrogen 56 mg/dL (7-18); Bicarbonate 28 mEq/L (21-32); Bilirubin Total 0.3 mg/dL (0.2-1.0); Globulin 4.9 g/dL (2.3-3.5); Glomerular Filtration Rate 70 ml/min (=/>90); Glucose Level 93 mg/dL (74-106); Magnesium 2.5 mg/dL (1.6-2.4); NT PRO-BNP 3050 pg/mL (<125); Phosphorus 3.2 mg/dL (2.5-4.9); Potassium 4.3 mEq/L (3.5-5.1); Protein, Total 6.9 g/dL (6.4-8.2); Sodium Level 146 mEq/L (136-145)
--- NOTE | 2024-10-02 07:26 | RAD REPORT ---
Procedure: Chest Single View HISTORY: Cough COMPARISON: September 30, 2022 FINDINGS: Mild worsening in left lung opacities overall mild improvement in right lung opacities No significant pleural effusion noted. The heart is normal size. IMPRESSION: Mild worsening in left and mild improvement in right pulmonary opacities probably pneumonia.
[2024-10-02] MEDS: ISONIAZID 300 MG TAB PO SCH (08:58)
[2024-10-02] MEDS: HYDRALAZINE HCL 25 MG TABLET FT SCH (09:02)
[2024-10-02] MEDS: lisinopriL 10 MG TAB FT SCH (09:02)
[2024-10-02] MEDS: METOPROLOL XL 50 MG TAB PO SCH (09:02)
[2024-10-02] MEDS: VANCOMYCIN 500 MG in NA CHLORIDE 0.9% 100 ML IVPB SCH (17:24)
[2024-10-02] MEDS: ETHAMBUTOL HCL 400 MG TAB PO SCH (20:41)
[2024-10-03 05:48] LABS: Absolute Eosinophils 0.2 K/uL (0-0.5); Absolute Lymphocytes (CBC) 1.7 K/uL (0.7-4.9); Absolute Monocytes 0.6 K/uL (0.1-1.3); Absolute Neutrophil 4.3 K/uL (1.8-8.0); Basophils % 0.7 % (0-1.3); Eosinophils % 3.5 % (0-4.4); Hematocrit 26.8 % (36.0-45.0); Hemoglobin 8.9 g/dL (12.0-15.0); Lymphocytes % 25.2 % (15.3-44.8); MCH 28.9 pg (27.0-35.0); MCHC 33.4 g/dL (32.0-36.0); MCV 86.5 fL (80-100); MPV 8.6 fL (7.6-11.3); Monocytes % 8.1 % (3.3-12.3); Neutrophils % 62.5 % (41.7-73.7); Nucleated Red Blood Cells % 0.1 % (0-0); Platelets 254 thou/uL (152-406); Red Cell Distribution Width 14.4 % (12.1-15.2)
[2024-10-03 06:16] LABS: AST/SGOT 11 U/L (15-37); Albumin/Globulin Ratio 0.4 (1.1-1.8); Alkaline Phosphatase 57 U/L (45-117); Anion Gap 6.8 mEq/L (5.0-15.0); BUN Blood Urea Nitrogen 46 mg/dL (7-18); Bicarbonate 29 mEq/L (21-32); Bilirubin Total 0.3 mg/dL (0.2-1.0); Glomerular Filtration Rate 64 ml/min (=/>90); Glucose Level 94 mg/dL (74-106); Magnesium 2.3 mg/dL (1.6-2.4); NT PRO-BNP 3442 pg/mL (<125); Phosphorus 3.2 mg/dL (2.5-4.9); Potassium 3.8 mEq/L (3.5-5.1); Sodium Level 146 mEq/L (136-145)
[2024-10-03 06:19] LABS: ALT/SGPT < 14 U/L (13-56)
--- NOTE | 2024-10-03 10:09 | P.PN ---
Subjective Date of Service: 10/01/24 Patient appears to have a cavitary lesion on the CT scan. Continue with antibiotic therapy. Continue with neb treatments. Patient being ruled out for tuberculosis. Pulmonary consulted. Most likely related to persistent aspiration. Patient's not able to really protect her airway well. She does follow a little more commands today. Continue with plan of care and will readdress long-term plan with family again. Review of Systems is unable to be obtained Physical Examination - Vital Signs Temperature: 98.2 F Blood Pressure: 107/51 Pulse: 64 Respirations: 18 Pulse Ox (%): 98 - Physical Exam General: Alert, In no apparent distress HEENT: Atraumatic, PERRLA, EOMI Neck: Supple, JVD not distended Respiratory: Diminished (Bilateral rhonchi's) Cardiovascular: Regular rate/rhythm, Normal S1 S2, No murmurs Gastrointestinal: Normal bowel sounds, Soft and benign, Non-distended, No tenderness Musculoskeletal: No clubbing, No swelling, No tenderness, Other (Bilateral below-knee amputation) Neurological: Sensation intact, Cranial nerves 3-12 intact, Other (Patient with generalized weakness) - Studies Medications List Reviewed: Yes Assessment & Plan - Problems (Diagnosis) (1) Altered mental status Current Visit: No Status: Acute (2) Aspiration pneumonia Current Visit: Yes Status: Acute (3) S/P bilateral below knee amputation Current Visit: Yes Status: Acute (4) PEG tube malfunction Current Visit: Yes Status: Acute (5) NSTEMI (non-ST elevated myocardial infarction) Current Visit: Yes Status: Acute (6) Severe protein-calorie malnutrition Current Visit: Yes Status: Acute (7) History of CVA with residual deficit Current Visit: No Status: Chronic (8) Hyperlipidemia Current Visit: No Status: Chronic Qualifiers: Hyperlipidemia type: unspecified Qualified Code(s): E78.5 - Hyperlipidemia, unspecified (9) Hypertension Onset Date: 02/03/18 Current Visit: No Status: Chronic Qualifiers: Hypertension type: essential hypertension - Plan Plan: 1. Altered mental status secondary to aspiration pneumonia; continue with IV antibiotic therapy at this time. Patient also has a cavitary lesion and we are ruling out tuberculosis. Continue with IV antibiotics 2. History of hypertension; resume antihypertensives 3. Generalized weakness; continue with bedside therapy 4. History of CVA; antiplatelet therapy and statin therapy 5. Severe protein calorie malnutrition; tube feeds and additional protein supplementation as needed 6. GI and DVT prophylaxis Discharge Plan: Home Plan to discharge in: Greater than 2 days - Advance Directives Does patient have a Living Will: No Does patient have a Durable POA for Healthcare: No - Code Status/Comfort Care Code Status: Full Code Critical Care: Yes Time Spent Managing PTS Care (In Minutes): 35
--- NOTE | 2024-10-03 10:14 | P.PN ---
Subjective Date of Service: 10/03/24 Chief Complaint: Lateral pneumonia Subjective: Improving (Patient's condition is stable no further hemoptysis) Review of Systems is unable to be obtained Physical Examination - Vital Signs Temperature: 98.2 F Blood Pressure: 107/51 Pulse: 64 Respirations: 18 Pulse Ox (%): 98 - Physical Exam General: Alert, Unresponsive Respiratory: Clear to auscultation bilaterally, Diminished Cardiovascular: No edema, Regular rate/rhythm - Studies Medications List Reviewed: Yes Assessment And Plan - Current Problems (Diagnosis) (1) Pneumonia Current Visit: No Status: Acute Plan: Patient has bilateral pneumonia with some cavitary changes with anti-TB therapy present antibiotic count has declined DC hydralazine and lisinopril blood pressure is low oxygen requirement stable to be transferred to the floor patient also has non-STEMI chest x-ray shows an improvement changed to p.o. doxycycline DC IV vancomycin Qualifiers: Pneumonia type: aspiration pneumonia Aspiration pneumonia type: unspecified Laterality: right Lung location: upper lobe of lung Qualified Code(s): J69.0 - Pneumonitis due to inhalation of food and vomit
--- NOTE | 2024-10-03 18:11 | P.PN ---
Date of Service: 10/02/24 Subjective Patient is improving and continues on antibiotics and clinical symptoms stable. Will try to get patient to discharge over the next 24 to 48 hours. Physical Examination - Vital Signs reviewed - Physical Exam General: Alert, In no apparent distress Respiratory: Diminished (Bilateral rhonchi's) Cardiovascular: Regular rate/rhythm, Normal S1 S2, No murmurs Gastrointestinal: Normal bowel sounds, Soft and benign, Non-distended, No tenderness Musculoskeletal: No clubbing, No swelling, No tenderness, Other (Bilateral below-knee amputation) Neurological: Sensation intact, Cranial nerves 3-12 intact, Other (Patient with generalized weakness) Assessment & Plan - Problems (Diagnosis) (1) Altered mental status Current Visit: No Status: Acute (2) Aspiration pneumonia Current Visit: Yes Status: Acute (3) S/P bilateral below knee amputation Current Visit: Yes Status: Acute (4) PEG tube malfunction Current Visit: Yes Status: Acute (5) NSTEMI (non-ST elevated myocardial infarction) Current Visit: Yes Status: Acute (6) Severe protein-calorie malnutrition Current Visit: Yes Status: Acute (7) History of CVA with residual deficit Current Visit: No Status: Chronic (8) Hyperlipidemia Current Visit: No Status: Chronic Qualifiers: Hyperlipidemia type: unspecified Qualified Code(s): E78.5 - Hyperlipidemia, unspecified (9) Hypertension Onset Date: 02/03/18 Current Visit: No Status: Chronic Qualifiers: Hypertension type: essential hypertension Qualified Code(s): I10 - Essential (primary) hypertension - Plan Continue with plan of care as mentioned below: 1. Altered mental status secondary to aspiration pneumonia; continue with IV antibiotic therapy at this time. Patient also has a cavitary lesion and we are ruling out tuberculosis. Continue with IV antibiotics 2. History of hypertension; resume antihypertensives 3. Generalized weakness; continue with bedside therapy 4. History of CVA; antiplatelet therapy and statin therapy 5. Severe protein calorie malnutrition; tube feeds and additional protein supplementation as needed 6. GI and DVT prophylaxis Discharge Plan: Home Discharge Plan: Home Plan to discharge in: Greater than 2 days - Advance Directives Does patient have a Living Will: No Does patient have a Durable POA for Healthcare: No - Code Status/Comfort Care Code Status: Full Code Critical Care: Yes Time Spent Managing PTS Care (In Minutes): 45
[2024-10-03] MEDS: DOXYCYCLINE 100 MG CAP PO SCH (20:24)
--- NOTE | 2024-10-04 05:00 | P.PN ---
Date of Service: 10/03/24 Subjective Patient is doing well. Patient continues to improve. Anti-TB medication started by pulmonary. Arrange for discharge planning and await for AFB. QuantiFERON pending as well. Physical Examination - Vital Signs reviewed - Physical Exam General: Alert, In no apparent distress Respiratory: Diminished (Bilateral rhonchi's) Cardiovascular: Regular rate/rhythm, Normal S1 S2, No murmurs Gastrointestinal: Normal bowel sounds, Soft and benign, Non-distended, No tenderness Musculoskeletal: No clubbing, No swelling, No tenderness, Other (Bilateral below-knee amputation) Neurological: Sensation intact, Cranial nerves 3-12 intact, Other (Patient with generalized weakness) Assessment & Plan - Problems (Diagnosis) (1) Altered mental status Current Visit: No Status: Acute (2) Aspiration pneumonia Current Visit: Yes Status: Acute (3) S/P bilateral below knee amputation Current Visit: Yes Status: Acute (4) PEG tube malfunction Current Visit: Yes Status: Acute (5) NSTEMI (non-ST elevated myocardial infarction) Current Visit: Yes Status: Acute (6) Severe protein-calorie malnutrition Current Visit: Yes Status: Acute (7) History of CVA with residual deficit Current Visit: No Status: Chronic (8) Hyperlipidemia Current Visit: No Status: Chronic Qualifiers: Hyperlipidemia type: unspecified Qualified Code(s): E78.5 - Hyperlipidemia, unspecified (9) Hypertension Onset Date: 02/03/18 Current Visit: No Status: Chronic Qualifiers: Hypertension type: essential hypertension Qualified Code(s): I10 - Essential (primary) hypertension - Plan Continue with plan of care as mentioned below: 1. Altered mental status secondary to aspiration pneumonia; continue with IV antibiotic therapy at this time. Patient also has a cavitary lesion and we are ruling out tuberculosis. Continue with IV antibiotics; Patient also on anti-TB medication per pulmonary. Appreciate their assistance. 2. History of hypertension; resume antihypertensives 3. Generalized weakness; continue with bedside therapy 4. History of CVA; antiplatelet therapy and statin therapy 5. Severe protein calorie malnutrition; tube feeds and additional protein supplementation as needed 6. GI and DVT prophylaxis Discharge Plan: Home Discharge Plan: Home Plan to discharge in: Greater than 2 days - Advance Directives Does patient have a Living Will: No Does patient have a Durable POA for Healthcare: No - Code Status/Comfort Care Code Status: Full Code Critical Care: Yes Time Spent Managing PTS Care (In Minutes): 25
--- NOTE | 2024-10-04 07:57 | P.PN ---
Subjective Date of Service: 10/04/24 Chief Complaint: Lateral pneumonia Subjective: Improving (Is improving more responsive) Review of Systems is unable to be obtained Physical Examination - Vital Signs Temperature: 98.2 F Blood Pressure: 107/51 Pulse: 64 Respirations: 18 Pulse Ox (%): 98 - Physical Exam General: Alert Respiratory: Clear to auscultation bilaterally, Diminished - Studies Medications List Reviewed: Yes Assessment And Plan - Current Problems (Diagnosis) (1) Pneumonia Current Visit: No Status: Acute Plan: Patient has bilateral pneumonia sputum cultures are pending continue with anti- TB therapy warp changer to p.o. Augmentin DC IV Zosyn hypernatremia increase water flushes steroids are negative so far continue with antituberculous therapy will cultures are available discharge back to the senior living in the next 5 days on antituberculous therapy Augmentin and doxycycline Qualifiers: Pneumonia type: aspiration pneumonia Aspiration pneumonia type: unspecified Laterality: right Lung location: upper lobe of lung Qualified Code(s): J69.0 - Pneumonitis due to inhalation of food and vomit
[2024-10-04] MEDS: AMOX/K CLAV 500 MG TAB PO SCH (09:06)
--- NOTE | 2024-10-04 12:34 | P.PN ---
Subjective Date of Service: 10/04/24 Chief Complaint: Lateral pneumonia Subjective: No new changes Review of Systems 10-point ROS is otherwise unremarkable Physical Examination - Vital Signs Temperature: 98.7 F Blood Pressure: 151/74 Pulse: 86 Respirations: 14 Pulse Ox (%): 98 - Physical Exam General: In no apparent distress HEENT: Atraumatic, PERRLA, EOMI Neck: Supple, JVD not distended Respiratory: Clear to auscultation bilaterally, Normal air movement Cardiovascular: Regular rate/rhythm, Normal S1 S2 Gastrointestinal: Normal bowel sounds, No tenderness Musculoskeletal: No tenderness Integumentary: No rashes Neurological: Normal speech, Normal tone, Normal affect Lymphatics: No axilla or inguinal lymphadenopathy - Studies Medications List Reviewed: Yes Assessment And Plan - Current Problems (Diagnosis) (1) NSTEMI (non-ST elevated myocardial infarction) Current Visit: Yes Status: Acute Plan: Patient functional status and prognosis is very poor, patient is too high risk for any kind of cardiac intervention, would recommend aggressive medical therapy ASA 81 mg daily Plavix 75 mg daily Lipitor 40 mg daily continue metoprolol 25 mg po BID
--- NOTE | 2024-10-04 14:57 | P.PN ---
Subjective Date of Service: 10/04/24 Chief Complaint: Lateral pneumonia Subjective: No new changes No overnight events noted, patient is bedridden status, on communicable on tube feeding patient is noncommunicable, nonverbal, on tube feeding without any aspiration, no overnight events noted Review of Systems is unable to be obtained Physical Examination - Vital Signs Temperature: 98.7 F Blood Pressure: 151/74 Pulse: 86 Respirations: 14 Pulse Ox (%): 98 - Physical Exam Other Physical/Emotional Findings: - Physical Exam. General: Chronic ill- looking, fragile, in no apparent distress,. HEENT: Normocephalic, atraumatic, nonicteric sclera, nonanemic conjunctive. Neck: Supple, without JVD or goiter or thyroid mass. Respiratory: Normal breathing effort, clear to auscultation bilaterally, no crackles no wheezing or rhonchi. Cardiovascular: Regular rate a nd rhythm, S1, S2 normal, no murmur no gallop. Gastrointestinal: Normal bowel sounds, nondistended, nontender, No ascites, , No masses, no hepatosplenomegaly, PEG tube in place. Extremities : No clubbing, No peripheral edema, status post bilateral BKA, no sign of infection of stumps. Integumentary: No rashes, petechia, suspected lesions. Lymphatics: No axilla or cervical lymphadenopathy. Neurology; minimally conscious state, nonverbal, on communicable, does not follow any command. - Studies Medications List Reviewed: Yes Assessment And Plan - Plan 64-year-old female with a past medical history debilitating CVA, aphasia, nonverbal, severe protein calorie malnutrition, stage III sacral ulcer, Frandy BKA; G tube placement; presents to the emergency room with hemoptysis. #1 necrotizing pneumonia without sepsis No more hemoptysis, Chest x-ray and a CT scan all personally reviewed, currently on Augmentin plus doxycycline and anti-TB medication with INH, ethambutol and rifampin Remain afebrile, mild mucositis resolved, sputum culture and sputum AFB pending, will follow-up with liver function test 2. Borderline acute hypoxic respiratory failure Stable on 1 L nasal cannula DVT prophylaxis sequential compression
[2024-10-04] MEDS: ASPIRIN 81 MG CHEWABLE TABLET FT SCH (17:21)
[2024-10-04] MEDS: METOPROLOL TAR 25 MG TAB PO SCH (17:21)
[2024-10-05] MEDS ORDERED: ASPIRIN EC 81 MG TAB PO SCH (09:00)
--- NOTE | 2024-10-05 14:02 | P.PN ---
Subjective Date of Service: 10/05/24 Chief Complaint: Lateral pneumonia Subjective: No new changes No overnight events noted, patient is bedridden status, on tube feeding patient is noncommunicable, nonverbal, Review of Systems is unable to be obtained Physical Examination - Vital Signs Temperature: 96.2 F Blood Pressure: 118/54 Pulse: 73 Respirations: 18 Pulse Ox (%): 98 - Physical Exam Other Physical/Emotional Findings: - Physical Exam. General: Chronic ill- looking, cachectic, in no apparent distress,. HEENT: Normocephalic, atraumatic, nonicteric sclera, nonanemic conjunctive. Neck: Supple, without JVD or goiter or thyroid mass. Respiratory: Normal breathing effort, clear to auscultation bilaterally, no crackles no wheezing or rhonchi. Cardiovascular: Regular rate and rhythm, S1, S2 normal, no murmur no gallop. Gastrointestinal: Normal bowel sounds, nondistended, nontender, No ascites, , No masses, no hepatosplenomegaly, PEG tube in place. Extremities : No clubbing, No peripheral edema, status post bilateral BKA, no sign of infection of stumps, PICC line in left upper arm. Integumentary: Multiple ecchymosis on both extremity but active bleeding. Lymphatics: No axilla or cervical lymphadenopathy. Neurology; minimally conscious state, nonverbal, on communicable, does not follow any command. - Studies Medications List Reviewed: Yes Assessment And Plan - Plan 64-year-old female [facility] resident with a past medical history debilitating CVA, aphasia, nonverbal, severe protein calorie malnutrition, stage III sacral ulcer, Frandy BKA; G tube placement; presents to the emergency room with hemoptysis. #1 multifocal necrotizing pneumonia without sepsis No more hemoptysis, Chest x-ray and a CT scan all personally reviewed, currently on Augmentin plus doxycycline and anti-TB medication with INH, ethambutol and rifampin Remain afebrile, mild leukocytosis resolved, sputum culture and sputum AFB pending, will order a follow-up liver function test. Case discussed with pack master, possible discharge back to [facility] once [facility]B stain negative after 7 days of anti-TB medication, today is day 5 2. Borderline acute hypoxic respiratory failure Stable on 1 L nasal cannula #3 non-STEMI type II secondary to #2 Noncandidate for cardiac intervention, medical treatment recommended with cardiology, continue aspirin, statin, metoprolol DVT prophylaxis sequential compression Disposition; plan to [facility] back to her [facility] once AFB stain negative and after 7 days of anti-TB medication
[2024-10-06 06:41] LABS: Absolute Basophils 0.1 K/uL (0-0.5); Absolute Eosinophils 0.4 K/uL (0-0.5); Absolute Lymphocytes (CBC) 1.9 K/uL (0.7-4.9); Absolute Monocytes 0.4 K/uL (0.1-1.3); Absolute Neutrophil 5.5 K/uL (1.8-8.0); Basophils % 0.6 % (0-1.3); Eosinophils % 4.6 % (0-4.4); Hematocrit 29.9 % (36.0-45.0); Hemoglobin 9.8 g/dL (12.0-15.0); Lymphocytes % 23.2 % (15.3-44.8); MCH 28.4 pg (27.0-35.0); MCHC 32.6 g/dL (32.0-36.0); MCV 86.8 fL (80-100); MPV 8.8 fL (7.6-11.3); Monocytes % 4.6 % (3.3-12.3); Platelets 264 thou/uL (152-406); RBC Red Blood Cell Count 3.44 M/uL (3.86-4.86); Red Cell Distribution Width 14.5 % (12.1-15.2)
[2024-10-06 07:02] LABS: Albumin 2.2 g/dL (3.4-5.0); Albumin/Globulin Ratio 0.5 (1.1-1.8); Anion Gap 5.8 mEq/L (5.0-15.0); Bilirubin Total 0.2 mg/dL (0.2-1.0); Globulin 4.8 g/dL (2.3-3.5); Potassium 3.8 mEq/L (3.5-5.1)
[2024-10-06 07:56] LABS: Magnesium 2.4 mg/dL (1.6-2.4)
[2024-10-06] MEDS: PYRIDOXINE (VIT B6) 50 MG TAB PO SCH ×2 (09:00→13:23)
[2024-10-06] MEDS: PYRAZINAMIDE 500 MG TAB PO SCH (13:23)
--- NOTE | 2024-10-06 15:12 | P.PN ---
Subjective Date of Service: 10/06/24 Chief Complaint: Lateral pneumonia Subjective: No new changes No overnight events noted, patient is bedridden status, on tube feeding patient is noncommunicable, nonverbal, no hypoxemia stable on room air, no more hemoptysis Review of Systems is unable to be obtained Physical Examination - Vital Signs Temperature: 97.7 F Blood Pressure: 136/64 Pulse: 71 Respirations: 16 Pulse Ox (%): 100 - Physical Exam Other Physical/Emotional Findings: - Physical Exam. General: Chronic ill- looking, cachectic, in no apparent distress,. HEENT: Normocephalic, atraumatic, nonicteric sclera, nonanemic conjunctive. Neck: Supple, without JVD or goiter or thyroid mass. Respiratory: Normal breathing effort, clear to auscultation bilaterally, no crackles no wheezing or rhonchi. Cardiovascular: Regular rate and rhythm, S1, S2 normal, no murmur no gallop. Gastrointestinal: Normal bowel sounds, nondistended, nontender, No ascites, , No masses, no hepatosplenomegaly, PEG tube in place. Extremities : No clubbing, No peripheral edema, status post bilateral BKA, no sign of infection of stumps, PICC line in left upper arm. Integumentary: Multiple ecchymosis on both extremity but active bleeding. Lymphatics: No axilla or cervical lymphadenopathy. Neurology; minimally conscious state, nonverbal, on communicable, does not follow any command. - Studies Microbiology Data (last 24 hrs): 09/30/24 17:20 Blood - Blood Aerobic Blood Culture - Final No growth in 5 days. 09/30/24 17:20 Blood - Blood Anaerobic Blood Culture - Final No growth in 5 days. 09/30/24 17:10 Blood - Blood Aerobic Blood Culture - Final No growth in 5 days. 09/30/24 17:10 Blood - Blood Anaerobic Blood Culture - Final No growth in 5 days. Medications List Reviewed: Yes Assessment And Plan - Plan 64-year-old female [facility] resident with a past medical history debilitating CVA, aphasia, nonverbal, severe protein calorie malnutrition, stage III sacral ulcer, Frandy BKA; G tube placement; presents to the emergency room with hemoptysis. #1 multifocal necrotizing pneumonia without sepsis No more hemoptysis, Chest x-ray and a CT scan currently on Augmentin plus doxycycline and anti-TB medication with INH, ethambutol and rifampin, Remain afebrile, mild leukocytosis resolved, sputum culture and sputum AFB still pending, a follow-up liver function test normal. Case discussed with pulmono logist, possible discharge back home after 7 days of anti-TB medication, today is day 5 2. acute Borderline hypoxic respiratory failure due to #1 Resolved, good oxygenation on room air, required 1 L nasal cannula #3 non-STEMI type II secondary to #2 Noncandidate for cardiac intervention, medical treatment recommended with cardiology, continue aspirin, statin, metoprolol DVT prophylaxis sequential compression Disposition; plan to discharge back home after 7 days of anti-TB medication, October 09, 2024
[2024-10-07 07:13] LABS: Anion Gap 6.4 mEq/L (5.0-15.0); Potassium 4.4 mEq/L (3.5-5.1)
--- NOTE | 2024-10-07 14:02 | P.PN ---
Subjective Date of Service: 10/07/24 Chief Complaint: Lateral pneumonia Subjective: No new changes No overnight events noted, patient is bedridden status, tolerating tube feeding well no hypoxemia stable on room air, no more hemoptysis Review of Systems is unable to be obtained Physical Examination - Vital Signs Temperature: 97 F Blood Pressure: 125/61 Pulse: 60 Respirations: 17 Pulse Ox (%): 100 - Physical Exam Other Physical/Emotional Findings: - Physical Exam. General: Chronic ill- looking, cachectic, in no apparent distress,. HEENT: Normocephalic, atraumatic, nonicteric sclera, nonanemic conjunctive. Neck: Supple, without JVD or goiter or thyroid mass. Respiratory: Normal breathing effort, clear to auscultation bilaterally, no crackles no wheezing or rhonchi. Cardiovascular: Regular rate and rhythm, S1, S2 normal, no murmur no gallop. Gastrointestinal: Normal bowel sounds, nondistended, nontender, No ascites, , No masses, no hepatosplenomegaly, PEG tube in place. Extremities : No clubbing, No peripheral edema, status post bilateral BKA, no sign of infection of stumps,. Integumentary: Multiple ecchymosis on both extremity but active bleeding. Lymphatics: No axilla or cervical lymphadenopathy. Neurology; minimally conscious state, nonverbal, on communicable, does not follow any command. - Studies Medications List Reviewed: Yes Assessment And Plan - Plan 64-year-old female [facility] resident with a past medical history debilitating CVA, aphasia, nonverbal, severe protein calorie malnutrition, stage III sacral ulcer, Frandy BKA; G tube placement; presents to the emergency room with hemoptysis. #1 multifocal necrotizing pneumonia with cavity without sepsis No more hemoptysis, Chest x-ray and a CT scan currently on Augmentin plus doxycycline and anti-TB medication with INH, ethambutol and rifampin, Remain afebrile, mild leukocytosis resolved, sputum culture and sputum AFB still pending, a follow-up liver function test normal. Case discussed with car knocker, possible discharge back home after 7 days of anti-TB medication, today is day 6 2. acute Borderline hypoxic respiratory failure due to #1 Resolved, good oxygenation on room air, required 1 L nasal cannula #3 non-STEMI type II secondary to #2 Noncandidate for cardiac intervention, medical treatment recommended with cardiology, continue aspirin, statin, metoprolol DVT prophylaxis sequential compression Disposition; plan to discharge back home after 7 days of anti-TB medication, October 09, 2024
[2024-10-07 22:34] VITALS: O2SAT 93
--- NOTE | 2024-10-08 07:22 | RAD REPORT ---
Procedure: Chest Single View HISTORY: Cough COMPARISON: October 02, 2024 FINDINGS: Partial resolution in left lung opacities. No significant change in mild right lung opacities. No significant pleural effusion noted. The heart is normal size.
--- NOTE | 2024-10-08 13:26 | P.PN ---
Subjective Date of Service: 10/08/24 Chief Complaint: Lateral pneumonia Subjective: No new changes No overnight events noted, patient is bedridden status, tolerating tube feeding well no hypoxemia stable on room air, no more hemoptysis Review of Systems is unable to be obtained Physical Examination - Vital Signs Temperature: 97.5 F Blood Pressure: 140/60 Pulse: 68 Respirations: 16 Pulse Ox (%): 94 - Physical Exam Other Physical/Emotional Findings: - Physical Exam. General: Chronic ill- looking, cachectic, in no apparent distress,. HEENT: Normocephalic, atraumatic, nonicteric sclera, nonanemic conjunctive. Neck: Supple, without JVD or goiter or thyroid mass. Respiratory: Normal breathing effort, clear to auscultation bilaterally, no crackles no wheezing or rhonchi. Cardiovascular: Regular rate and rhythm, S1, S2 normal, no murmur no gallop. Gastrointestinal: Normal bowel sounds, nondistended, nontender, No ascites, , No masses, no hepatosplenomegaly, PEG tube in place. Extremities : No clubbing, No peripheral edema, status post bilateral BKA, no sign of infection of stumps,. Integumentary: Multiple ecchymosis on both extremity but active bleeding. Lymphatics: No axilla or cervical lymphadenopathy. Neurology; minimally conscious state, nonverbal, on communicable, does not follow any command. - Studies Medications List Reviewed: Yes Assessment And Plan - Plan 64-year-old female [facility] resident with a past medical history debilitating CVA, aphasia, nonverbal, severe protein calorie malnutrition, stage III sacral ulcer, Frandy BKA; G tube placement; presents to the emergency room with hemoptysis. #1 multifocal necrotizing pneumonia with cavity without sepsis No more hemoptysis, Chest x-ray and a CT scan on admission showED necrotizing pneumonia with cavity, a follow-up x-ray ordered and personally reviewed, some resolution of the left lower lobe consolidation, no cavity. I will discontinue oral antibiotics, she finished 9 days of Augmentin plus doxycycline, will continue anti-TB medication with INH, ethambutol and rifampin until AFB stain and culture result is available Remain afebrile, mild leukocytosis resolved, sputum culture and sputum AFB still pending, a follow-up liver function test normal. discharge back home after 7 days of anti-TB medication, today is day 7 2. acute Borderline hypoxic respiratory failure due to #1 Resolved, good oxygenation on room air, required 1 L nasal cannula #3 non-STEMI type II secondary to #2 Noncandidate for cardiac intervention, medical treatment recommended with cardiology, continue aspirin, statin, metoprolol DVT prophylaxis sequential compression Disposition; plan to discharge back home after 7 days of anti-TB medication, October 09, 2024
--- NOTE | 2024-10-08 15:08 | P.DS ---
Admission Date: 09/30/24 Discharge Date: 10/08/24 Disposition: ROUTINE DISCHARGE Discharge Condition: GOOD Reason for Admission: Lateral pneumonia Brief History of Present Illness: 64-year-old female patient with a past medical history debilitating CVA, aphasia, nonverbal, severe protein calorie malnutrition, stage III sacral ulcer, Frandy BKA; status post feeding PEG tube; the patient lived with her daughter. She was brought by her family to the emergency room with hemoptysis. Hospital Course: Chest x-ray and CT scan on the emergency room revealed necrotizing pneumonia with cavity in left lower lobe. She was started on empiric antibiotic with Augmentin and doxycycline and then anti-TB medication was added by senior account clerk. She was tolerating medication well and responded to the treat ment, her hemoptysis resolved and no respiratory distress, was able to wean off oxygen, stable at room air. Her troponin was elevated but no sign of heart failure or arrhythmia on telemetry. She did not have any cardiovascular event during this admission. AFB stain and Mycobacterium culture were pending at the time of discharge. She tested negative for HIV. She is being discharged home after 7-day of anti-TB medication. She completed 9 days of Augmentin and doxycycline during hospitalization. Plan is to continue anti-TB medication comprised of isoniazid, ethambutol, rifampin, pyrazinamide until AFB stain and culture test is available. She is supposed to follow-up with senior account clerk and [facility] after discharge. #1 multifocal necrotizing pneumonia with cavity without sepsis with concern for possible tuberculosis or atypical Mycobacterium CT scan on admission showED necrotizing pneumonia with cavity, a follow-up x-ray some resolution of the left lower lobe consolidation, no cavity. oral antibiotics is discontinued, she finished 9 days of Augmentin plus doxycycline, will continue anti-TB medication with INH, ethambutol and rifampin until AFB stain and culture result is available, Remain afebrile, mild leukocytosis resolved, sputum culture and sputum AFB still pending, a follow-up liver function test and renal function test were normal. 2. acute borderline hypoxic respiratory failure due to #1 Resolved, good oxygenation on room air, required 1 L nasal cannula #3 non-STEMI type II secondary to #2 Noncandidate for cardiac intervention, medical treatment recommended with cardiology, continue aspirin and Plavix, statin, metoprolol Vital Signs/Physical Exam: Temp Pulse Resp BP Pulse Ox 97.5 F 68 16 140/60 94 10/08/24 13:26 10/08/24 13:26 10/08/24 13:26 10/08/24 13:26 10/08/24 13:26 Other Physical/Emotional Findings: - Physical Exam. General: Chronic ill- looking, cachectic, in no apparent distress,. HEENT: Normocephalic, atraumatic, nonicteric sclera, nonanemic conjunctive. Neck: Supple, without JVD or goiter or thyroid mass. Respiratory: Normal breathing effort, clear to auscultation bilaterally, no crackles no wheezing or rhonchi. Cardiovascular: Regular rate and rhythm, S1, S2 normal, no murmur no gallop. Gastrointestinal: Normal bowel sounds, nondistended, nontender, No ascites, , No masses, no hepatosplenomegaly, PEG tube in place. Extremities : No clubbing, No peripheral edema, status post bilateral BKA, no sign of infection of stumps,. Integumentary: Multiple ecchymosis on both extremity but active bleeding. Lymphatics: No axilla or cervical lymphadenopathy. Neurology; minimally conscious state, nonverbal, on communicable, does not follow any command. Laboratory Data at Discharge: WBC 8.20 thou/uL (4.3-10.9) 10/06/24 06:00 Hgb 9.8 g/dL (12.0-15.0) L 10/06/24 06:00 Hct 29.9 % (36.0-45.0) L 10/06/24 06:00 Plt Count 264 thou/uL (152-406) 10/06/24 06:00 PT 15.1 SECONDS (9.4-12.5) H 10/01/24 06:56 INR 1.44 10/01/24 06:56 APTT Cancelled 10/01/24 13:00 Sodium 143 mEq/L (136-145) 10/07/24 05:31 Potassium 4.4 mEq/L (3.5-5.1) D 10/07/24 05:31 BUN 59 mg/dL (7-18) H 10/07/24 05:31 Creatinine 1.11 mg/dL (0.55-1.02) H 10/07/24 05:31 Glucose 81 mg/dL (74-106) 10/07/24 05:31 Phosphorus 4.0 mg/dL (2.5-4.9) 10/06/24 06:00 Magnesium 2.4 mg/dL (1.6-2.4) 10/06/24 06:00 Total Bilirubin 0.2 mg/dL (0.2-1.0) 10/06/24 06:00 AST 21 U/L (15-37) 10/06/24 06:00 ALT 20 U/L (13-56) 10/06/24 06:00 Alkaline Phosphatase 62 U/L (45-117) 10/06/24 06:00 Triglycerides 39 mg/dL (<150) 10/01/24 04:54 Cholesterol 66 mg/dL (<200) 10/01/24 04:54 HDL Cholesterol 33 mg/dL (40-60) L 10/01/24 04:54 Cholesterol/HDL Ratio 2.00 10/01/24 04:54 Home Medications: Hydralazine [Apresoline*] 25 mg FT DAILY 07/14/19 Atorvastatin Calcium [Lipitor*] 10 mg FT BEDTIME 06/29/24 Clopidogrel Bisulfate [Plavix] 75 mg FT DAILY 06/29/24 Metoprolol Succinate [Toprol Xl*] 50 mg FT DAILY 06/29/24 Ethambutol HCl [Myambutol] 400 mg PO DAILY #30 tab 10/04/24 Isoniazid [Isoniazid*] 300 mg PO DAILY #30 tab 10/04/24 rifAMPin [Rifadin*] 300 mg PO DAILY #30 cap 10/04/24 Aspirin [Adult Low Dose Aspirin EC] 81 mg PO DAILY #30 10/08/24 Pyrazinamide [Pyrazinamide*] 500 mg PO BID #28 tab 10/08/24 Pyridoxine [Vitamin B-6*] 50 mg PO DAILY #30 tab 10/08/24 New Medications: Aspirin [Adult Low Dose Aspirin EC] 81 mg PO DAILY #30 Isoniazid [Isoniazid*] 300 mg PO DAILY #30 tab Ethambutol HCl [Myambutol] 400 mg PO DAILY #30 tab Pyrazinamide [Pyrazinamide*] 500 mg PO BID #28 tab rifAMPin [Rifadin*] 300 mg PO DAILY #30 cap Pyridoxine [Vitamin B-6*] 50 mg PO DAILY #30 tab Physician Discharge Instructions: OK TO DC IV AND DC HOME FOLLOW-UP WITH PRIMARY CARE PROVIDER IN 1-2 WEEKS RETURN TO THE ER IF symptoms worsen CALL DR. AMADOR AT [phone] IF ANY QUESTIONS REGARDING HOSPITAL STAY. PLEASE CALL THE FLOOR AT [phone] IF ANY MEDICATION OR NURSING QUESTIONS. Diet: TFs Activity: Bedrest Followup: Solis Chamberlain MD [ACTIVE - CAN ADMIT] - NONE,NONE [Primary Care Provider] -
[2024-10-08 17:10] VITALS: BP 115/47; TEMP 99.1
== END 2024-10-08 18:30 | disposition home or self-care (01) | DRG 177 ==
LOC: ER 10:43 → ERHOLD 17:58 → 3RD-ICU 21:38 → 4TH 10-03 10:15
PROVIDERS: ADMIT Hospitalist; ATTEND Internal Medicine
DX: J85.0 Gangrene and necrosis of lung (principal); E43 Unspecified severe protein-calorie malnutrition; J69.0 Pneumonitis due to inhalation of food and vomit; I21.A1 Myocardial infarction type 2; L89.154 Pressure ulcer of sacral region, stage 4; J96.01 Acute respiratory failure with hypoxia; R04.2 Hemoptysis; Z68.1 Body mass index [BMI] 19.9 or less, adult; R64 Cachexia; E87.0 Hyperosmolality and hypernatremia; A15.0 Tuberculosis of lung; D63.8 Anemia in other chronic diseases classified elsewhere; I10 Essential (primary) hypertension; E87.6 Hypokalemia; E78.5 Hyperlipidemia, unspecified; E11.40 Type 2 diabetes mellitus with diabetic neuropathy, unspecified; I69.320 Aphasia following cerebral infarction; Z74.01 Bed confinement status; Z79.02 Long term (current) use of antithrombotics/antiplatelets; Z89.512 Acquired absence of left leg below knee; Z89.511 Acquired absence of right leg below knee; Z90.710 Acquired absence of both cervix and uterus; Z89.431 Acquired absence of right foot; Z89.422 Acquired absence of other left toe(s); Z79.899 Other long term (current) drug therapy; Z79.82 Long term (current) use of aspirin
CPT/HCPCS: 36415; 71045; 71275; 80048; 80053; 80061; 80076; 82947; 83605; 83735; 83880; 84100; 84132; 84155; 84439; 84443; 84484; 85025; 85610; 85730; 86480; 86850; 86900; 86901; 87015; 87040; 87070; 87116; 87205; 87206; 87389; 93005; 94760; 96374; 99285; J1644; J1650; J2543; J3475; J3480; J7030; J7050; Q9967